=== PATIENT | female | born 1950 | race Caucasian/White ===

== ENCOUNTER 2019-08-22 13:06 | Outpatient (CLI) | payer MEDICARE, SELFPAY ==
--- NOTE | ~2019-08-22 | CT_ITS ---
EXAMINATION: CT abdomen pelvis w con INDICATION: Abdominal pain and bloating TECHNIQUE: Computed tomographic images of the abdomen and pelvis were obtained after the administrati on of 100 cc of Omnipaque 350 intravenous contrast. The dose-length product (DLP) was 552.73 mGy-cm. Automated exposure control and iterative reconstruction technique were employed. COMPARISON: None available FINDINGS: Minimal dependent atelectasis is present in the lung bases. The heart size is normal. Hypoa ttenuating lesions of the liver measuring up to 1.6 cm in the left hepatic lobe are consistent with c ysts. There is mild enlargement of the common bile duct and central intrahepatic ducts which is likel y due to post cholecystectomy state. The spleen, pancreas, gallbladder, and adrenal glands are normal . Cysts of the kidneys measure up to 2.6 cm on the right. There are punctate bilateral nonobstructing stones in the kidneys. No stones are identified in the ureters or bladder. There is no hydronephrosi s or hydroureter. No pathologically enlarged abdominal or pelvic lymph nodes are identified. There is no free intraperitoneal gas or evidence of bowel obstruction. A fat-containing umbilical hernia is n oted. There is mild lumbar spondylosis. IMPRESSION: 1. Mild intrahepatic and extrahepatic biliary dilatation of unclear significance. Recommend correlati on with liver function tests and consider MRCP or ERCP. Reviewed, dictated and finalized at location A. IOPE PLAYER IMPRESSION: 1. Mild intrahepatic and extrahepatic biliary dilatation of unclear significanc e. Recommend correlation with liver function tests and consider MRCP or ERCP.
[2019-08-22 13:28] LABS: Blood Urea Nitrogen 14 mg/dL (8-26); Estimated Glomerular Filt Rate > 60
== END 2019-08-22 13:07 | disposition home or self-care (01) ==
LOC: ANHIMG 13:11
PROVIDERS: PCP Emergency Medicine; Visit Provider Emergency Medicine
DX: R10.84 Generalized abdominal pain (principal); R14.0 Abdominal distension (gaseous); R93.5 Abnormal findings on diagnostic imaging of other abdominal regions, including retroperitoneum
CPT/HCPCS: 74177; Q9967

== ENCOUNTER 2019-09-08 12:21 | Outpatient (CLI) | payer MEDICARE, SELFPAY ==
--- NOTE | ~2019-09-08 | MR_ITS ---
EXAMINATION: MR cervical spine wo con DATE: 09/08/2019 14:16 INDICATION: Bilateral hand numbness. TECHNIQUE: Magnetic resonance imaging (MRI) of the cervical spine was performed without intravenous c ontrast. Sequences included sagittal T2-weighted FSE, sagittal STIR FSE, sagittal T1-weighted FSE, ax ial MERGE, and axial T2-weighted FSE. COMPARISON: Cervical spine MRI 11/18/2017 FINDINGS: Bone alignment is normal. There are changes of anterior fusion procedure from C5 to C7 with discectomies, healed interbody bone graft, and anterior plate and screws. Vertebral body heights are normal. There is mildly decreased disc height at C3-C4, moderately decreased disc height at C4-C5, a nd mildly decreased disc height at C7-T1. The spinal cord signal intensity is normal. The following d isc levels are specifically discussed: C2-C3: The disc does not extend beyond the endplate margin. There is no uncovertebral joint osteoarth ritis. There is severe left facet joint osteoarthritis. There is mild left neural foraminal stenosis. There is no central canal stenosis. C3-C4: The disc is bulging. There is moderate right and severe left uncovertebral joint osteoarthriti s. There is mild right and severe left facet joint osteoarthritis. There is mild right and moderate l eft neural foraminal stenosis. There is mild central canal stenosis. C4-C5: The disc is bulging. There is moderate and severe left uncovertebral joint osteoarthritis. The re is moderate bilateral facet joint osteoarthritis. There is mild right and moderate left neural for aminal stenosis. There is mild central canal stenosis. C5-C6: There is mild left uncovertebral joint hypertrophy. There is no facet joint osteoarthritis. Th ere is no neural foraminal stenosis. There is no central canal stenosis. C6-C7: There is no uncovertebral joint hypertrophy. There is no facet joint osteoarthritis. There is no neural foraminal stenosis. There is no central canal stenosis. C7-T1: The disc is bulging. There is no uncovertebral joint osteoarthritis. There is severe bilateral facet joint osteoarthritis. There is mild bilateral neural foraminal stenosis. There is no central c anal stenosis. IMPRESSION: 1. Moderate cervical spondylosis, stable from 11/18/2017. 2. Anterior fusion procedure from C5 to C7. Reviewed, dictated and finalized at location A. SE DRIVER
--- NOTE | ~2019-09-08 | MR_ITS ---
EXAMINATION: MR lumbar spine wo con DATE: 09/08/2019 14:18 INDICATION: Chronic low back pain. TECHNIQUE: Magnetic resonance imaging (MRI) of the lumbar spine was performed without intravenous con trast. Sequences included sagittal T2-weighted FSE, sagittal T2-weighted FS FSE, sagittal T1-weighted FSE, and axial T2-weighted FSE. COMPARISON: Lumbar spine MRI 11/18/2017 FINDINGS: There is 6 degrees levocurvature of lumbar spine. There is 4 mm anterolisthesis of L4 on L5 . There are Schmorl's nodes at multiple levels. There is mildly decreased disc height at L3-L4 and mo derately decreased disc height at L4-L5. The distal spinal cord signal intensity is normal. The conus medullaris is at L1-L2. The following disc levels are specifically discussed: L1-L2: The disc does not extend beyond the endplate margin. There is mild right facet joint osteoarth ritis. There is no neural foraminal stenosis. There is no central canal stenosis. L2-L3: The disc is mildly bulging. There is severe right and moderate left facet joint osteoarthritis . There is no neural foraminal stenosis. There is mild central canal stenosis. L3-L4: The disc is bulging. There is moderate right and severe left facet joint osteoarthritis. There is mild bilateral neural foraminal stenosis. There is mild central canal stenosis. L4-L5: The disc is bulging and has an annular fissure. There is severe bilateral facet joint osteoart hritis. There is mild bilateral neural foraminal stenosis. There is mild central canal stenosis. L5-S1: The disc is mildly bulging. There is severe bilateral facet joint osteoarthritis. There is mil d bilateral neural foraminal stenosis. There is no central canal stenosis. IMPRESSION: 1. Moderate lumbar spondylosis, stable from 12/21/2016. Reviewed, dictated and finalized at location A. ATRIC NURSE PRACTITIONER
== END 2019-09-08 12:22 | disposition home or self-care (01) ==
LOC: ANHIMG 12:33
PROVIDERS: PCP Emergency Medicine; Visit Provider Anesthesiology
DX: R20.2 Paresthesia of skin (principal); M47.892 Other spondylosis, cervical region; Z98.1 Arthrodesis status; M47.896 Other spondylosis, lumbar region
CPT/HCPCS: 72141; 72148

== ENCOUNTER 2019-11-09 09:02 | Outpatient (CLI) | payer MEDICARE, SELFPAY ==
--- NOTE | 2019-11-09 10:30 | NEURO_ITS ---
Patient Number: [id number] Impression: # Complains of pain in upper and lower extremities. # Normal nerve conduction study including motor and sensory nerves except left peroneal amplitude drop. Could suggest higher involvement. # Normal needle/EMG exam without evidence of myotonia or fibrillations. # Clinical correlation recommended. Nerve Conduction Studies Anti Sensory Summary Table Stim Site NR Peak (ms) P-T Amp (?V) Site1 Site2 Delta-P (ms) Dist (cm) Niranjan (m/s) Left Median Anti Sensory (2-3nd Digit) Wrist 2.9 50.2 Wrist 2-3nd Digit 2.9 14.0 48 Wrist 3.0 40.7 Wrist 2-3nd Digit 2.9 14.0 48 Right Median Anti Sensory (2-3nd Digit) Wrist 3.0 35.7 Wrist 2-3nd Digit 3.0 14.0 47 Wrist 3.0 41.2 Wrist 2-3nd Digit 3.0 14.0 47 Left Radial Anti Sensory (Base 1st Digit) Wrist 2.3 12.5 Wrist Base 1st Digit 2.3 0.0 Right Radial Anti Sensory (Base 1st Digit) Wrist 2.7 14.1 Wrist Base 1st Digit 2.7 0.0 Left Sup Fibular Anti Sensory (Ant Lat Mall) 14 cm 3.4 10.8 14 cm Ant Lat Mall 3.4 16.0 47 Right Sup Fibular Anti Sensory (Ant Lat Mall) 14 cm 3.3 24.7 14 cm Ant Lat Mall 3.3 16.0 48 Left Sural Anti Sensory (Lat Mall) Calf 3.7 12.1 Calf Lat Mall 3.7 16.0 43 4.2 5.4 Right Sural Anti Sensory (Lat Mall) Calf 3.9 4.7 Calf Lat Mall 3.9 16.0 41 Left Ulnar Anti Sensory (5th Digit) Wrist 2.5 58.2 Wrist 5th Digit 2.5 14.0 54 Right Ulnar Anti Sensory (5th Digit) Wrist 2.5 65.2 Wrist 5th Digit 2.5 14.0 56 Motor Summary Table Stim Site NR Onset (ms) O-P Amp (mV) Site1 Site2 Delta-0 (ms) Dist (cm) Niranjan (m/s) Left Median Motor (Abd Poll Brev) Wrist 2.8 3.2 Elbow Wrist 4.3 25.0 58 Elbow 7.1 2.7 Right Median Motor (Abd Poll Brev) Wrist 3.3 2.7 Elbow Wrist 4.3 25.0 58 Elbow 7.6 2.1 Left Peroneal Motor (Vastus Med) Ankle 4.8 0.7 Popit Ankle 7.4 37.0 50 Popit 12.2 0.8 Right Peroneal Motor (Vastus Med) Ankle 4.6 2.5 Popit Ankle 7.9 35.0 44 Popit 12.5 2.0 Left Tibial Motor (Abd Rios Brev) Ankle 4.6 3.6 Knee Ankle 8.4 39.0 46 Knee 13.0 3.5 Right Tibial Motor (Abd Rios Brev) Ankle 4.7 2.8 Knee Ankle 8.3 39.0 47 Knee 13.0 1.5 Left Ulnar Motor (Abd Dig Minimi) Wrist 2.3 3.9 A Elbow Wrist 4.7 27.0 57 A Elbow 7.0 4.2 Right Ulnar Motor (Abd Dig Minimi) Wrist 2.8 5.8 A Elbow Wrist 4.6 26.0 57 A Elbow 7.4 4.4 F Wave Studies NR F-Lat (ms) L-R F-Lat (ms) Left Median (Mrkrs) (Abd Poll Brev) 26.80 0.76 Right Median (Mrkrs) (Abd Poll Brev) 27.56 0.76 Left Peroneal (Mrkrs) (EDB) 52.85 0.07 Right Peroneal (Mrkrs) (EDB) 52.78 0.07 Left Tibial (Mrkrs) (Abd Hallucis) 53.04 0.29 Right Tibial (Mrkrs) (Abd Hallucis) 53.33 0.29 Left Ulnar (Mrkrs) (Abd Dig Min) 26.33 0.85 Right Ulnar (Mrkrs) (Abd Dig Min) 27.18 0.85 EMG Side Muscle Nerve Root Ins Act Fibs Amp Dur Recrt Comment Right 1stDorInt Ulnar C8-T1 Nml Nml Nml Nml Nml Right Ext Indicis Radial (Post Int) C7-8 Nml Nml Nml Nml Nml Right Ext Digitorum Radial (Post Int) C7-8 Nml Nml Nml Nml Nml Right Br
== END 2019-11-09 09:03 | disposition home or self-care (01) ==
PROVIDERS: PCP Emergency Medicine; Visit Provider Anesthesiology
DX: M54.10 Radiculopathy, site unspecified (principal)
CPT/HCPCS: 95886; 95913

== ENCOUNTER 2019-12-26 07:47 | Outpatient (CLI) | payer MEDICARE, SELFPAY ==
[2019-12-26 09:03] LABS: Alanine Aminotransferase 14 U/L (4-35); Alkaline Phosphatase 56 U/L (38-126); Aspartate Amino Transferase 23 U/L (14-36); Bilirubin,Total 0.3 mg/dL (0.2-1.3); Blood Urea Nitrogen 13 mg/dL (7-17); Calcium 9.5 mg/dL (8.4-10.2); Carbon Dioxide 31 mmol/L (22-30); Chloride 101 mmol/L (98-107); Cholesterol 211 mg/dL (0-200); Estimated Glomerular Filt Rate > 60; Glucose 94 mg/dL (65-105); HDL Direct 54 mg/dL; Potassium 4.1 mmol/L (3.4-5.0); Sodium 134 mmol/L (137-145); Triglycerides 277 mg/dL (<150)
[2019-12-26 09:05] LABS: LDL Cholesterol Direct 113 mg/dL
== END 2019-12-26 07:48 | disposition home or self-care (01) ==
LOC: ANHLAB 07:49
PROVIDERS: PCP Emergency Medicine; Visit Provider Emergency Medicine
DX: E78.5 Hyperlipidemia, unspecified (principal); K76.9 Liver disease, unspecified
CPT/HCPCS: 36415; 80053; 80061; 82248

== ENCOUNTER 2020-01-18 14:27 | Outpatient (CLI) | payer MEDICARE, SELFPAY ==
--- NOTE | ~2020-01-18 | MR_ITS ---
EXAMINATION: MR MRCP wo/w con/w 3D wo ind DATE: 01/18/2020 15:51 INDICATION: Generalized abdominal pain. TECHNIQUE: Magnetic resonance imaging (MRI) of the abdomen was performed without and with 16 mL Multi Gely intravenous contrast. Sequences included coronal T2-weighted FS FSE, coronal T2-weighted FSE, a xial T1-weighted LAVA, coronal FS FIESTA, axial dual-echo T1-weighted SPGR, coronal lava-FLEX, sagitt al T2-weighted FSE, axial T2-weighted FSE, and axial DWI. Thick-slab T2-weighted FSE images were obta ined for magnetic resonance cholangiopancreatography (MRCP). Maximum intensity projection 3-D reconst ructions of the volumetric data were created by the technologist. Postcontrast sequences included cor onal LAVA-flex and time course of axial T1-weighted LAVA. COMPARISON: CT abdomen and pelvis 08/22/2019 FINDINGS: ABDOMEN MRI: There is diffuse hepatic steatosis. There are cysts in the liver measuring up to 12 mm. The gallbladder, spleen, pancreas, and adrenal glands are normal. There are cysts in the kidneys laura uring up to 2.5 cm on the right. There are no dilated loops of bowel. There are no pathologically enl arged lymph nodes. There is no free intraperitoneal fluid. ABDOMEN MRCP: The common duct is normal and measures 7 mm. No choledocholithiasis. IMPRESSION: 1. Diffuse hepatic steatosis. Reviewed, dictated and finalized at location A.
== END 2020-01-18 14:28 | disposition home or self-care (01) ==
PROVIDERS: PCP Emergency Medicine; Visit Provider Emergency Medicine
DX: R10.84 Generalized abdominal pain (principal); K76.0 Fatty (change of) liver, not elsewhere classified
CPT/HCPCS: 74183; 76376; A9577

== ENCOUNTER 2020-04-08 14:41 | Outpatient (CLI) | payer MEDICARE, SELFPAY ==
--- NOTE | ~2020-04-08 | MM_ITS ---
EXAMINATION: MM screening [facility] BI w tia HISTORY: Screening mammogram, family history of breast cancer in her mother. TECHNIQUE: Craniocaudal and mediolateral oblique 3-D tomosynthesis images were obtained and synthetic 2-D images were generated. CAD analysis was submitted and interpreted. COMPARISON: 10/22/2017, 05/07/2016, 04/24/2015 BREAST PARENCHYMAL COMPOSITION: There are scattered areas of fibroglandular density. FINDINGS: There is no evidence of suspicious mass, calcification, or architectural distortion to sugg est malignancy in either breast. There has been no suspicious interval change. IMPRESSION: 1. No mammographic evidence of malignancy. 2. Recommend routine screening mammography in one year. BI-RADS Category 1: Negative Reviewed, dictated and finalized at location A.
== END 2020-04-08 14:42 | disposition home or self-care (01) ==
LOC: ANHIMG 14:43
PROVIDERS: PCP Emergency Medicine; Visit Provider Emergency Medicine
DX: Z12.31 Encounter for screening mammogram for malignant neoplasm of breast (principal)
CPT/HCPCS: 77063; 77067

== ENCOUNTER 2020-12-05 12:24 | Outpatient (CLI) | payer MEDICARE, SELFPAY ==
--- NOTE | ~2020-12-05 | MR_ITS ---
EXAMINATION: MR brain/brain stem wo con DATE: 12/05/2020 13:25 INDICATION: Hyperprolactinemia. TECHNIQUE: Magnetic resonance imaging (MRI) of the brain and brainstem was performed without intraven ous contrast. Sequences included sagittal and axial T1-weighted FSE, axial diffusion-weighted FS EPI, axial T2*-weighted GRE, axial T2-weighted FLAIR Propeller, and axial T2-weighted Propeller. Apparent diffusion coefficient (ADC) maps were created. COMPARISON: Brain MRI 09/03/2017 FINDINGS: The pituitary is normal in size with height of 4 mm and concave superior margin. There is n o intracranial hemorrhage, acute infarction, or abnormal intracranial mass lesion. The ventricles are normal in size. There are scattered areas of nonspecific increased T2-weighted signal intensity in t he cerebral white matter and left basal ganglia and lucero. The ventricles are normal in size. There is mild mucosal thickening in the ethmoid sinuses. The orbits are normal. There is a trace left mastoid effusion. IMPRESSION: 1. Normal pituitary. 2. Worsened mild nonspecific cerebral white matter disease and disease of the lucero and left basal good glia, which likely represents chronic small vessel ischemic disease. Reviewed, dictated and finalized at location B. IMPRESSION: 1. Normal pituitary. 2. Worsened mild nonspecific cerebral white matter disease and disease of the p ons and left basal ganglia, which likely represents chronic small vessel ischem ic disease.
== END 2020-12-05 12:25 | disposition home or self-care (01) ==
LOC: ANHIMG 12:25
PROVIDERS: PCP Emergency Medicine; Visit Provider Physical Medicine & Rehabilitation Pain Medicine
DX: R79.89 Other specified abnormal findings of blood chemistry (principal); R93.0 Abnormal findings on diagnostic imaging of skull and head, not elsewhere classified
CPT/HCPCS: 70551

== ENCOUNTER 2021-02-25 02:15 | Emergency (ER) | payer MEDICARE, SELFPAY ==
--- NOTE | ~2021-02-25 | XR_ITS ---
XR chest 2V 02/25/2021 02:55 Indication: Chest pain and shortness of breath Procedure: PA and lateral views of the chest Comparison: 02/09/2019 Findings: Heart size normal. Bibasilar airspace disease. Small pleural effusions. No edema or pneumot horax. Surgical changes of the cervicothoracic junction and the left shoulder. Impression: 1: Bibasilar infiltrates may represent atelectasis or less likely pneumonia. 2: Small pleural effusions. Reviewed, dictated and finalized at location A. Impression: 1: Bibasilar infiltrates may represent atelectasis or less likely pneumonia. 2: Small pleural effusions.
[2021-02-25 02:17] VITALS: BP 136/78; PULSE 83; RESP 18; TEMP 37.1; O2SAT 95
--- NOTE | 2021-02-25 02:39 | ECG_ITS ---
Measurements Intervals [place] Rate: 0 P: [place]: 0 QRS: QRSD: 0 T: QT: 0 QTc: 0 Interpretive Statements SINUS RHYTHM INCOMPLETE RIGHT BUNDLE BRANCH BLOCK DELAYED PRECORDIAL R/S TRANSITION BORDERLINE T WAVE ABNORMALITY- ANT/INF LEADS BASELINE ARTIFACT- I, II, III, AVR, AVL, AVF, V1-V6 BORDERLINE ECG Electronically Signed On 02-25-2021 5:27:40 CDT by Fransico Ortega D.O.
--- NOTE | 2021-02-25 03:22 | ED.GENADULT ---
HPI - General Adult General Chief complaint: Chest Pain Stated complaint: chest pain Time Seen by Provider: 02/25/21 03:10 History of Present Illness HPI narrative: Patient is a 70-year-old female presents the emergency department with chief complaint of right-sided chest pain. Patient reports that she started having right-sided sharp pleuritic chest pain this evening reports she has had a dry cough denies fever denies chills patient reports he just has prior history of diabetes denies history of prior cardiac disease. The patient pain has improved reports its worse with deep breaths and worse with movement. Patient reports has not been vaccinated for COVID-19. Patient denies fever Related Data Home Medications Medication Instructions Recorded Confirmed hydrocodone 10 mg-acetaminophen 1 tablet PO QID PRN tablet 06/28/19 325 mg tablet albuterol 90 mcg/actuation aerosol See Rx Instructions .ROUTE .COMPLEX 12/26/19 inhaler cetirizine 10 mg tablet See Rx Instructions .ROUTE .COMPLEX 12/26/19 duloxetine 60 mg capsule,delayed See Rx Instructions .ROUTE .COMPLEX 12/26/19 release risperidone 0.5 mg tablet See Rx Instructions PO .COMPLEX 12/26/19 Allergies Allergy/AdvReac Type Severity Reaction Status Date / Time morphine Allergy Unknown Itching Verified 02/25/21 02:28 Sulfa (Sulfonamide Allergy Unknown Unknown Verified 02/25/21 02:28 Antibiotics) vancomycin Allergy Unknown Rash Verified 02/25/21 02:28 erythromycin base Allergy Hives Verified 02/25/21 02:28 Penicillins Allergy Hives Verified 02/25/21 02:28 Review of Systems Review of Systems: A 10 system review of systems was completed on the patient and is negative except for what is stated in the HPI. Nursing and ancillary documentation was reviewed. [facility] Past Medical History Medical History (Updated 02/25/21 @ 05:44 by Anselmo Galan MD) Abdominal pain COPD (chronic obstructive pulmonary disease) HLD (hyperlipidemia) Family History Family History Sibling Family history of blood dyscrasia Family history of malignant neoplasm Family history of seizure disorder Mother Family history of malignant neoplasm, Onset Age: 85 Family history of lymphoma, Onset Age: 85 Family history of atrial fibrillation, Onset Age: 85 Social History Social History Smoking status: Never smoker Alcohol intake: never Gender identity (if verbalized by the patient): Female Exam Narrative: GENERAL: Well-appearing, well-nourished, and in no acute distress. HEAD: Normocephalic, atraumatic. EYES: PERRLA and EOMI. ENT: Nares clear, no rhinorrhea or epistaxis. Mucous membranes moist. NECK: Supple. CHEST: Clear to auscultation. No respiratory distress. Chest wall is tender to palpation HEART: Regular rate and rhythm. No murmur heard. Normal peripheral pulses. ABDOMEN: Soft, nontender, nondistended, normal active bowel sounds. EXTREMITIES: Normal range of motion. No edema. SKIN: Warm, dry, no rash. NEURO: No focal deficits. Alert and oriented x3. PSYCH: Normal mood and affect. Course Vital Signs Vital signs: Vital Signs Temperature 37.1 C 02/25/21 02:17 Pulse Rate 83 02/25/21 02:17 Respiratory Rate 18 02/25/21 02:17 Blood Pressure 136/78 02/25/21 02:17 Pulse Oximetry 95 02/25/21 02:17 Temperature 37.1 C 02/25/21 02:17 Pulse Rate 78 02/25/21 05:42 Respiratory Rate 20 02/25/21 05:42 Blood Pressure 127/74 02/25/21 05:42 Pulse Oximetry 94 02/25/21 05:42 Medical Decision Making Vital Signs Vital Signs: Vital Signs Temperature 37.1 C 02/25/21 02:17 Pulse Rate 83 02/25/21 02:17 Respiratory Rate 18 02/25/21 02:17 Blood Pressure 136/78 02/25/21 02:17 Pulse Oximetry 95 02/25/21 02:17 Temperature 37.1 C 02/25/21 02:17 Pulse Rate 78
[2021-02-25 03:27] LABS: Basophils Absolute Auto 0.1 K/mm3 (0.0-0.1); Basophils Percent Auto 0.7 % (0.2-1.2); Eosinophils Absolute Auto 0.1 K/mm3 (0-0.3); Eosinophils Percent Auto 1.8 % (0-4.4); Hematocrit 39.2 % (37.0-47.0); Hemoglobin 12.6 g/dL (12.0-15.0); Immature Granulocyte Absolute 0.01 K/mm3 (0.00-0.031); Immature Granulocyte Percent A 0.1 % (0-0.5); Lymphocytes Absolute Auto 1.79 K/mm3 (0.9-3.2); Lymphocytes Percent Auto 26.8 % (18.3-44.2); Mean Corpuscular HGB Conc 32.1 g/dl (32-36); Mean Corpuscular Hemoglobin 29.8 pg (26-34); Mean Corpuscular Volume 92.7 fl (80-100); Mean Platelet Volume 11.6 fl (7.4-10.4); Monocytes Absolute Auto 0.8 K/mm3 (0.1-0.6); Monocytes Percent Auto 12.3 % (2.6-8.5); Neutrophils Absolute Auto 3.9 K/mm3 (1.3-6.7); Neutrophils Percent Auto 58.3 % (45.5-73.1); Platelet Count Result 213 k/mm3 (150-375); Red Blood Count 4.23 M/mm3 (4.2-5.4); Red Cell Distribution Width 14.5 % (11.5-14.5); White Blood Count 6.7 K/mm3 (4.5-10.0)
[2021-02-25 03:37] LABS: Anion Gap 6 mmol/L (8-16); Blood Urea Nitrogen 11 mg/dL (7-17); Calcium 9.3 mg/dL (8.4-10.2); Carbon Dioxide 26 mmol/L (22-30); Chloride 104 mmol/L (98-107); Estimated CRCL calculation 80 ml/min; Estimated Glomerular Filt Rate > 60; Glucose 99 mg/dL (65-110); Potassium 3.7 mmol/L (3.4-5.0); Sodium 136 mmol/L (137-145)
[2021-02-25 03:40] LABS: INR 0.9; Partial Thromboplastin Time 26.9 SECONDS (22.3-36.8); Prothrombin Time 11.8 Seconds (11.1-14.7)
[2021-02-25 03:50] LABS: Troponin I < 0.012 ng/mL (0.000-0.034)
[2021-02-25 04:06] VITALS: BP 139/64; PULSE 65; RESP 18; O2SAT 91
[2021-02-25 05:42] VITALS: BP 127/74; PULSE 78; RESP 20; O2SAT 94
[2021-02-25 06:18] LABS: Troponin I < 0.012 ng/mL (0.000-0.034)
[2021-02-25 06:31] VITALS: BP 139/81; PULSE 80; RESP 18; O2SAT 94
== END 2021-02-25 06:30 | disposition home or self-care (01) ==
PROVIDERS: Emergency Provider Emergency Medicine; PCP Emergency Medicine
DX: R07.89 Other chest pain (principal); J44.9 Chronic obstructive pulmonary disease, unspecified
CPT/HCPCS: 36415; 71046; 80048; 84484; 85025; 85610; 85730; 93005; 99284

== ENCOUNTER 2021-09-24 06:53 | Outpatient (CLI) | payer MEDICARE, SELFPAY ==
[2021-09-24 07:56] LABS: Alanine Aminotransferase 10 U/L (4-35); Albumin Level 3.9 g/dL (3.5-5.1); Alkaline Phosphatase 59 U/L (38-126); Anion Gap 3 mmol/L (8-16); Aspartate Amino Transferase 20 U/L (14-36); Bilirubin,Total 0.4 mg/dL (0.2-1.3); Blood Urea Nitrogen 16 mg/dL (7-17); Calcium 9.2 mg/dL (8.4-10.2); Carbon Dioxide 31 mmol/L (22-30); Chloride 105 mmol/L (98-107); Cholesterol 134 mg/dL (0-200); Estimated Glomerular Filt Rate > 60; Glucose 98 mg/dL (65-110); HDL Direct 56 mg/dL; Potassium 4.1 mmol/L (3.4-5.0); Sodium 139 mmol/L (137-145); Triglycerides 130 mg/dL (<150)
[2021-09-24 08:07] LABS: LDL Cholesterol Direct 46 mg/dL
[2021-09-24 08:10] LABS: Hemoglobin A1C 5.6 % (<5.7)
== END 2021-09-24 06:54 | disposition home or self-care (01) ==
PROVIDERS: PCP Emergency Medicine; Visit Provider Emergency Medicine
DX: E78.5 Hyperlipidemia, unspecified (principal); E11.9 Type 2 diabetes mellitus without complications
CPT/HCPCS: 36415; 80053; 80061; 83036

== ENCOUNTER 2022-01-23 10:03 | Outpatient (CLI) | payer MEDICARE, SELFPAY ==
--- NOTE | ~2022-01-23 | MM_ITS ---
EXAMINATION: MM screening [facility] BI w tia HISTORY: Screening mammogram TECHNIQUE: Craniocaudal and mediolateral oblique 3-D tomosynthesis images were obtained and synthetic 2-D images were generated. CAD analysis was submitted and interpreted. COMPARISON: 04/08/2020, 10/22/2017, 05/07/2016 BREAST PARENCHYMAL COMPOSITION: There are scattered areas of fibroglandular density. FINDINGS: There is no suspicious mass, calcification, or architectural distortion to suggest malignan cy in either breast. There has been no suspicious interval change. IMPRESSION: 1. No mammographic evidence of malignancy. 2. Recommend routine screening mammography in one year. BI-RADS Category 1: Negative Reviewed, dictated and finalized at location A.
== END 2022-01-23 10:04 | disposition home or self-care (01) ==
LOC: ANHIMG 10:05
PROVIDERS: PCP Emergency Medicine; Visit Provider Emergency Medicine
DX: Z12.31 Encounter for screening mammogram for malignant neoplasm of breast (principal)
CPT/HCPCS: 77063; 77067

== ENCOUNTER 2022-07-15 08:59 | Outpatient (CLI) | payer MEDICARE, SELFPAY ==
[2022-07-15 09:46] LABS: Basophils Percent Auto 0.5 % (0.2-1.2); Eosinophils Absolute Auto 0.1 K/mm3 (0-0.3); Eosinophils Percent Auto 0.6 % (0-4.4); Hematocrit 40.2 % (37.0-47.0); Hemoglobin 12.9 g/dL (12.0-15.0); Immature Granulocyte Absolute 0.02 K/mm3 (0.00-0.031); Immature Granulocyte Percent A 0.2 % (0-0.5); Mean Corpuscular HGB Conc 32.1 g/dl (32-36); Mean Corpuscular Hemoglobin 30.6 pg (26-34); Mean Corpuscular Volume 95.5 fl (80-100); Mean Platelet Volume 11.4 fl (7.4-10.4); Monocytes Absolute Auto 0.7 K/mm3 (0.1-0.6); Monocytes Percent Auto 8.6 % (2.6-8.5); Neutrophils Percent Auto 71.1 % (45.5-73.1); Platelet Count Result 255 k/mm3 (150-375); Red Blood Count 4.21 M/mm3 (4.2-5.4); Red Cell Distribution Width 13.7 % (11.5-14.5); White Blood Count 8.4 K/mm3 (4.5-10.0)
[2022-07-15 10:02] LABS: Alanine Aminotransferase 17 U/L (6-35); Albumin Level 4.3 g/dL (3.5-5.1); Alkaline Phosphatase 48 U/L (38-126); Anion Gap 7 mmol/L (8-16); Aspartate Amino Transferase 23 U/L (14-36); Bilirubin,Total 0.6 mg/dL (0.2-1.3); Blood Urea Nitrogen 11 mg/dL (7-17); Calcium 9.4 mg/dL (8.4-10.2); Carbon Dioxide 30 mmol/L (22-30); Chloride 103 mmol/L (98-107); Cholesterol 181 mg/dL (0-200); Estimated Glomerular Filt Rate > 60; Glucose 102 mg/dL (65-110); HDL Direct 69 mg/dL; Potassium 4.2 mmol/L (3.4-5.0); Sodium 140 mmol/L (137-145); Triglycerides 135 mg/dL (<150)
[2022-07-15 10:12] LABS: LDL Cholesterol Direct 69 mg/dL
== END 2022-07-15 09:00 | disposition home or self-care (01) ==
LOC: ANHLAB 09:02
PROVIDERS: PCP Emergency Medicine; Visit Provider Emergency Medicine
DX: E78.5 Hyperlipidemia, unspecified (principal)
CPT/HCPCS: 36415; 80053; 80061; 85025

== ENCOUNTER 2022-10-22 08:55 | Inpatient (IN) | payer MEDICARE, SELFPAY ==
[2022-10-22] VITALS (21 sets, daily range): BP systolic 028–169; BP diastolic 51–93; PULSE 71–130; RESP 15–223; TEMP 36.7–36.9; O2SAT 87–98
--- NOTE | ~2022-10-22 | CT_ITS ---
EXAMINATION: CTA chest PE protocol DATE: 10/22/2022 11:39 CDT INDICATION: Chest pain, shortness of breath and elevated d-dimer. TECHNIQUE: Computed tomographic angiography (CTA) of the chest was performed with 100 mL Omnipaque-35 0 intravenous contrast. The dose-length product was 436.89 mGy-cm. Maximum intensity projection 3D-re constructions of the aorta and other arteries were constructed by the technologist on a separate work station. COMPARISON: CT dated 09/02/2017 and chest x-ray dated 11/08/2022. FINDINGS: Study is technically limited for evaluation of right upper lobe pulmonary arteries due to m otion and contrast bolus timing. No large central pulmonary embolism. Cardiomegaly. Small pleural eff usions. There is mediastinal lymphadenopathy, likely reactive. Patchy groundglass opacities involving the upper lobes and right lower lobe. There is dependent atelectasis. No endobronchial lesions. No p neumothorax. No evidence for aortic aneurysm or dissection. There are multiple low-density lesions in the liver, largest in the right hepatic lobe showing 1.5 cm, compatible with a cyst. There is nodula r thickening of the adrenal glands, likely secondary to benign adenomas. Moderate thoracic spondylosi s. Surgical fusion changes present in the lower cervical spine. 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 IMPRESSION: 1. Patchy groundglass opacities, most confluent in the right upper lobe, consistent with pneumonia. 2: No large central pulmonary embolism. 3: Mediastinal lymphadenopathy, likely reactive. 4: Small pleural effusions. Reviewed, dictated and finalized at location L. IMPRESSION: 1. Patchy groundglass opacities, most confluent in the right upper lobe, consis tent with pneumonia. 2: No large central pulmonary embolism. 3: Mediastinal lymphadenopathy, likely reactive. 4: Small pleural effusions.
--- NOTE | ~2022-10-22 | XR_ITS ---
Clinical Indication: Shortness of breath PA and lateral views of the chest: Comparison: 02/25/2021 Findings: Probable small left pleural effusion present. Additional minimal right pleural effusion latisha moody chronic blunting of the costophrenic angle. There is a groundglass opacity in the right upper lob e.. Cardiomediastinal silhouette is within normal limits. Bones and soft tissues are unremarkable. Impression: Groundglass opacity right upper lobe. Correlate for atypical pulmonary edema pattern versus pneumonia . Small left pleural effusion and possible minimal right pleural effusion. Reviewed, dictated and finalized at location . Impression: Groundglass opacity right upper lobe. Correlate for atypical pulmonary edema pa ttern versus pneumonia. Small left pleural effusion and possible minimal right pleural effusion.
--- NOTE | 2022-10-22 08:56 | ECG_ITS ---
Measurements Intervals [place] Rate: 96 P: 82 ID: [id number] QRS: -9 QRSD: 85 T: 59 QT: 351 QTc: 445 Interpretive Statements SINUS RHYTHM WITH FREQUENT SUPRAVENTRICULAR PREMATURE COMPLEXES AND SUPRAVENTRICULAR TACHYCARDIA LOW QRS VOLTAGE IN PRECORDIAL LEADS POSSIBLE ANTEROSEPTAL MYOCARDIAL INFARCTION , PROBABLY OLD ABNORMAL ECG COMPARED TO ECG 02/25/2021 02:22:35 NO SIGNIFICANT CHANGES Electronically Signed On 10-23-2022 16:14:42 CDT by David Washington M.D.
[2022-10-22 09:31] LABS: Alanine Aminotransferase 18 U/L (6-35); Albumin Level 3.6 g/dL (3.5-5.1); Alkaline Phosphatase 66 U/L (38-126); Anion Gap 7 mmol/L (8-16); Aspartate Amino Transferase 18 U/L (14-36); Bilirubin,Total 0.4 mg/dL (0.2-1.3); Blood Urea Nitrogen 14 mg/dL (7-17); Calcium 9.2 mg/dL (8.4-10.2); Carbon Dioxide 28 mmol/L (22-30); Chloride 107 mmol/L (98-107); Estimated CRCL calculation 62 ml/min; Estimated Glomerular Filt Rate > 60; Glucose 130 mg/dL (65-110); Sodium 142 mmol/L (137-145)
[2022-10-22 09:33] LABS: Basophils Absolute Auto 0.1 K/mm3 (0.0-0.1); Basophils Percent Auto 0.7 % (0.2-1.2); Eosinophils Absolute Auto 0.1 K/mm3 (0-0.3); Eosinophils Percent Auto 1.3 % (0-4.4); Hematocrit 32.3 % (37.0-47.0); Hemoglobin 10.3 g/dL (12.0-15.0); Immature Granulocyte Absolute 0.05 K/mm3 (0.00-0.031); Immature Granulocyte Percent A 0.5 % (0-0.5); Lymphocytes Percent Auto 15.1 % (18.3-44.2); Mean Corpuscular HGB Conc 31.9 g/dl (32-36); Mean Corpuscular Hemoglobin 29.1 pg (26-34); Mean Corpuscular Volume 91.2 fl (80-100); Mean Platelet Volume 10.3 fl (7.4-10.4); Monocytes Absolute Auto 1.1 K/mm3 (0.1-0.6); Monocytes Percent Auto 9.9 % (2.6-8.5); Neutrophils Absolute Auto 7.7 K/mm3 (1.3-6.7); Neutrophils Percent Auto 72.5 % (45.5-73.1); Platelet Count Result 432 k/mm3 (150-375); Red Blood Count 3.54 M/mm3 (4.2-5.4); Red Cell Distribution Width 13.4 % (11.5-14.5); White Blood Count 10.6 K/mm3 (4.5-10.0)
--- NOTE | 2022-10-22 09:55 | ED.SOB ---
HPI - SOB/Dyspnea General Chief Complaint: Shortness of Breath/Dyspnea <Lety Jung PA-C - Last Filed: 10/22/22 13:30> Stated Complaint: SOB <Lety Jung PA-C - Last Filed: 10/22/22 13:30> Time Seen by Provider: 10/22/22 09:30 <Lety Jung PA-C - Last Filed: 10/22/22 13:30> History of Present Illness HPI Narrative: Patient is a 72-year-old female here for evaluation of shortness of breath. Patient states that over the past 5 days she has felt short of breath on exertion, associated with chest tightness. Patient states that her symptoms resolved when she was at rest but she has been able to walk less than a mile before becoming short of breath and having the tightness. She is never had a symptom like this in the past. She denies any fevers, chills, cough, congestion, leg swelling or pain. Patient does smoke 3 cigarettes/day. She has never had a cardiac catheterization. <Lety Jung PA-C - Last Filed: 10/22/22 13:30> Related Data Home Medications: Home Medications Medication Instructions Recorded Confirmed albuterol 90 mcg/actuation aerosol See Rx Instructions .Route .COMPLEX 12/26/19 09/26/21 inhaler cetirizine 10 mg tablet (Zyrtec) See Rx Instructions .Route .COMPLEX 12/26/19 09/26/21 duloxetine 60 mg capsule,delayed See Rx Instructions .Route .COMPLEX 12/26/19 09/26/21 release (Cymbalta) risperidone 0.5 mg tablet See Rx Instructions PO .COMPLEX 12/26/19 09/26/21 (Risperdal) metformin 500 mg tablet 500 mg PO BID 04/22/21 09/26/21 <JOSIE Owens Last Filed: 10/22/22 13:30> Allergies/Adverse Reactions: Allergies Allergy/AdvReac Type Severity Reaction Status Date / Time morphine Allergy Unknown Itching Verified 10/22/22 09:10 Sulfa (Sulfonamide Allergy Unknown Unknown Verified 10/22/22 09:10 Antibiotics) erythromycin base Allergy Hives Verified 10/22/22 09:10 Penicillins Allergy Hives Verified 10/22/22 09:10 <Lety Jung PA-C - Last Filed: 10/22/22 13:30> Review of Systems Review of Systems: Gen.: Denies fevers or chills Eyes: Denies eye pain or visual change ENT: Denies congestion Respiratory: Reports shortness of breath CV: Reports chest pain GI: Denies abdominal pain nausea, emesis or diarrhea denies burning, urgency, frequency or hematuria Musculoskeletal: Denies back pain or muscle pain Neuro: Denies numbness, tingling, weakness or focal weakness Skin: Denies rash Except as documented, all other systems reviewed and negative <Lety Jung PA-C - Last Filed: 10/22/22 13:30> [facility] Past Medical History Medical History: Medical History (Updated 10/22/22 @ 11:55 by Lety Jung PA-C) Abdominal pain COPD (chronic obstructive pulmonary disease) HLD (hyperlipidemia) <Lety Jung PA-C - Last Filed: 10/22/22 13:30> Family History Family History: Family History Sibling Family history of blood dyscrasia Family history of malignant neoplasm Family history of seizure disorder Mother Family history of malignant neoplasm, Onset Age: 85 Family history of lymphoma, Onset Age: 85 Family history of atrial fibrillation, Onset Age: 85 <Lety Jung PA-C - Last Filed: 10/22/22 13:30> Social History Social History: Social History Smoking packs per day: 0 Smoking cigarettes per day: 0.0 Years smoked: 3 Smoking pack-years: 0.00 Smoking status: Current every day smoker Tobacco type: cigarettes Second hand tobacco smoke exposure: No Alcohol intake: never Substance use: never Substance use type: does not use Living arrangements: with family Gender identity (if verbalized by the patient): Female Spiritual care concerns: No Agree to blood products: Yes <Lety Jung PA-C - Last
[2022-10-22] MEDS: LEVALBUTEROL NEB 1.25 MG/3 ML INHALATION ×2 (10:19→13:13)
[2022-10-22] MEDS: IPRATROPIUM BR 0.02% INH SOLN 0.5 MG/2.5 ML VIAL INHALATION ×2 (10:19→13:13)
[2022-10-22 10:32] LABS: NT Pro B Type Natriuretic Pept 4580 pg/mL (19.9-100); Troponin I < 0.012 ng/mL (0.000-0.034)
[2022-10-22] MEDS: POTASSIUM CHLORIDE 20 MEQ PACKET (FOR LIQUID) 40 MEQ PO (10:38)
[2022-10-22 10:42] LABS: INR 1.1; Partial Thromboplastin Time 38.2 SECONDS (22.3-36.8); Prothrombin Time 13.8 Seconds (11.1-14.7)
[2022-10-22 10:51] LABS: D Dimer 1.16 ug/mL (<0.48)
[2022-10-22 13:11] LABS: Troponin I < 0.012 ng/mL (0.000-0.034)
[2022-10-22 13:19] LABS: SARS-CoV-2 RNA PCR Negative
--- NOTE | 2022-10-22 13:53 | ADMGEN ---
This patient, Ruchi Holden, was admitted to Medical Room 342-01 @ 1350 . Patient/family oriented to hospital policies and general routines including ID bracelet, bed and alarms, visiting hours, pain management, procedures, bathroom and other care routines, personal items, smoking policy, room service/diet, and visiting hours. Information on how to activate the Rapid Response Team has been discussed. Patient/Family are encouraged to report perceived risks to care and to ask questions if they do not understand what they are told or what they should do.
--- NOTE | 2022-10-22 15:52 | ECG_ITS ---
Measurements Intervals [place] Rate: 116 P: 96 IN: 144 QRS: -5 QRSD: 80 T: 46 QT: 321 QTc: 448 Interpretive Statements SINUS TACHYCARDIA WITH OCCASIONAL VENTRICULAR PREMATURE COMPLEXES AND SUPRAVENTRICULAR PREMATURE COMPLEXES WITH SUPRAVENTRICULAR TACHYCARDIA ABNORMAL ECG COMPARED TO ECG 10/22/2022 09:06:01 HEART RATE HAS INCREASED Electronically Signed On 10-23-2022 16:31:42 CDT by David Washington M.D.
--- NOTE | 2022-10-22 18:35 | PM.IMHP ---
H&P: HPI History of Present Illness Date/Time: 10/22/22 18:35 Chief Complaint: Shortness of breath. Narrative: This is a 72-year-old female smoker with COPD, hypertension, hyperlipidemia, GERD, depression, anxiety, and chronic pain syndrome who presented to the emergency department via private vehicle from home for evaluation of shortness of breath. Patient provides the following history. She has not been feeling well for nearly a week with a wet but nonproductive cough, headache, body aches, and poor appetite. Over the last 5 days she has developed a sharp and stabbing pain in the right side of her back which seems to be associated with cough and deep inspiration. She has also been short of breath with exertion and has had sensations of racing heart and palpitations randomly. She has been under lot of stress recently as her 49-year-old daughter has been ill and in the hospital and in fact she just 2 days ago. The patient has no sick contacts to her knowledge. She denies fever, chills, and sweats. She has not had exertional chest pain. No syncope or near syncope. She denies nausea and vomiting. No orthopnea, paroxysmal nocturnal dyspnea, or edema. No history of venous thromboembolism and no known history of cardiac disease or dysrhythmia. She was afebrile on arrival to the emergency department with stable vital signs. Pertinent labs included WBC count of 10.6, hemoglobin 10.3, D-dimer 1.16, sodium 142, potassium 3.0, troponin less than 0.012, proBNP 4580. She was negative for SARS-CoV-2 by PCR. Chest CTA showed patchy ground-glass opacities, most complete in the right upper lobe, consistent with pneumonia, no large central pulmonary embolism, and small pleural effusions. In the ED she was given a nebulizer treatment and a dose of azithromycin and ceftriaxone. She is being admitted in this setting for further treatment and evaluation. Review of Systems Review of Systems: Twelve systems were reviewed. Weight has remained stable. No history of thyroid disease. She does not drink alcohol. Drinks perhaps a cup of coffee a day. No energy drinks [id number] supplements. Except as documented, all other systems were reviewed and are negative. [facility] Past Medical History Medical History (Updated 10/22/22 @ 19:20 by Mony Wood PA-C) Arthritis Chronic obstructive pulmonary disease Chronic pain syndrome Depression with anxiety Gastroesophageal reflux disease Hyperlipidemia Hypertension Kidney stones Nicotine use Shingles Type 2 diabetes mellitus Vitamin D deficiency Surgical History Surgical History (Updated 10/22/22 @ 17:45 by Mony Wood PA-C) History of appendectomy History of fusion of cervical spine C4 through C6. History of hernia repair History of lithotripsy Family History Family History Sibling Family history of blood dyscrasia Family history of malignant neoplasm Family history of seizure disorder Mother Family history of malignant neoplasm, Onset Age: 85 Family history of lymphoma, Onset Age: 85 Family history of atrial fibrillation, Onset Age: 85 Social History Social History (Updated 10/22/22 @ 17:45 by Mony Wood PA-C) Social History: Surrogate medical decision maker: Usha Ashley, granddaughter. Code status: Full code. Smoking packs per day: 0 Smoking cigarettes per day: 0.0 Years smoked: 4 Smoking pack-years: 0.00 Smoking status: Current every day smoker Tobacco type: cigarettes Second hand tobacco smoke exposure: No Alcohol intake: never Substance use: never Substance use type: does not use Lack of Transportation: No Lack of Food: Never True Current Housing: I Have Housing Concerned About Future Housing: No Difficulty Paying Gas/Electric Bills: No Difficulty Paying for Meds: No Currently Unemployed: No Education: Bachelor's Degree Difficulty w/ Childc
[2022-10-22] MEDS: HYDROcodone/acetaminophen (*CRX) 5-325 MG TABLET 1 TAB PO (20:11)
[2022-10-22] MEDS: DULoxetine HCL 60 MG CAPSULE.DR PO (21:02)
[2022-10-22] MEDS: GABAPENTIN 400 MG CAPSULE 800 MG PO (21:02)
[2022-10-22] MEDS: guaiFENesin 12 HR 600 MG TABCR PO (21:03)
[2022-10-22] MEDS: risperiDONE 1 MG TABLET BY MOUTH (21:03)
[2022-10-22] MEDS: SIMVASTATIN 20 MG TABLET PO (21:03)
[2022-10-22] MEDS: METOPROLOL TARTRATE INJ 5 MG/5 ML VIAL IV PUSH (23:13)
[2022-10-22] MEDS: ALPRAZolam (*CRX) 0.125 MG TABLET PO (23:13)
[2022-10-23] VITALS (17 sets, daily range): BP systolic 135–166; BP diastolic 54–91; PULSE 72–135; RESP 20–24; TEMP 36.9; O2SAT 94–98
[2022-10-23 01:37] LABS: Iron 31 ug/dL (37-170); Percent Iron Saturation 11 % (20-50)
[2022-10-23 02:29] LABS: Folic Acid 7.5 ng/mL (2.76->20)
[2022-10-23] MEDS: IPRATROPIUM BR 0.02% INH SOLN 0.5 MG/2.5 ML VIAL INHALATION ×4 (02:54→23:42)
[2022-10-23] MEDS: LEVALBUTEROL NEB 1.25 MG/3 ML INHALATION ×4 (02:54→23:42)
[2022-10-23] MEDS: HYDROcodone/acetaminophen (*CRX) 5-325 MG TABLET 1 TAB PO ×4 (03:04→19:03)
[2022-10-23 05:56] LABS: Hematocrit 30.1 % (37.0-47.0); Hemoglobin 9.6 g/dL (12.0-15.0); Mean Corpuscular HGB Conc 31.9 g/dl (32-36); Mean Corpuscular Hemoglobin 29.1 pg (26-34); Mean Corpuscular Volume 91.2 fl (80-100); Mean Platelet Volume 10.2 fl (7.4-10.4); Platelet Count Result 420 k/mm3 (150-375); Red Cell Distribution Width 13.6 % (11.5-14.5); White Blood Count 11.2 K/mm3 (4.5-10.0)
[2022-10-23 06:03] LABS: Anion Gap 5 mmol/L (8-16); Blood Urea Nitrogen 10 mg/dL (7-17); Calcium 8.6 mg/dL (8.4-10.2); Carbon Dioxide 27 mmol/L (22-30); Chloride 106 mmol/L (98-107); Estimated CRCL calculation 85 ml/min; Estimated Glomerular Filt Rate > 60; Glucose 113 mg/dL (65-110); Potassium 3.5 mmol/L (3.4-5.0); Sodium 138 mmol/L (137-145)
[2022-10-23 08:14] LABS: Glucose Point of Care 119 mg/dl (65-105)
[2022-10-23] MEDS: guaiFENesin 12 HR 600 MG TABCR PO ×2 (08:15→20:37)
[2022-10-23] MEDS: DULoxetine HCL 60 MG CAPSULE.DR PO ×2 (08:15→17:36)
[2022-10-23] MEDS: risperiDONE 1 MG TABLET BY MOUTH ×4 (08:16→20:37)
[2022-10-23] MEDS: ENOXAPARIN 40 MG/0.4 ML SYRINGE SUB-Q (08:16)
[2022-10-23] MEDS: GABAPENTIN 400 MG CAPSULE 800 MG PO ×3 (08:16→17:37)
--- NOTE | 2022-10-23 11:13 | PM.IMPN ---
Progress Note: A&P Assessment and Plan (1) Pneumonia: Code(s): J18.9 - Pneumonia, unspecified organism Status: Acute Assessment and Plan: CT of the chest showed no evidence of PE but did show patchy ground-glass opacities consistent with pneumonia. Continue azithromycin and ceftriaxone. Cornet Mucinex ordered to help mobilize secretions. Check urinary antigens and mycoplasma. (2) Tachycardia: Code(s): R00.0 - Tachycardia, unspecified Status: Acute Assessment and Plan: Initial EKG shows what appears to be sinus tachycardia with frequent ectopy. On occasion her telemetry does look like she intermittently goes into brief (seconds) episodes of atrial fibrillation. Continue to monitor on telemetry. Check echocardiogram and TSH. Consult cardiology (3) Chronic obstructive pulmonary disease: Code(s): J44.9 - Chronic obstructive pulmonary disease, unspecified Status: Acute Assessment and Plan: No significant bronchospasm noted on exam today. Hold DuoNebs given concomitant tachycardia. Rescue inhaler as needed. (4) Nicotine use: Code(s): Z72.0 - Tobacco use Status: Acute Assessment and Plan: Patient started smoking 4 years ago and only smokes 3 cigarettes a day. Encouraged to quit, declines nicotine patch. (5) Depression with anxiety: Code(s): F41.8 - Other specified anxiety disorders Status: Acute Assessment and Plan: Daughter 2 days ago as per HPI. Continue duloxetine. (6) Type 2 diabetes mellitus: Code(s): E11.9 - Type 2 diabetes mellitus without complications Status: Acute Assessment and Plan: Hold metformin as she received IV contrast. Initiate sliding scale insulin, Accu-Cheks, and hypoglycemic protocol. Check A1c. (7) Chronic pain syndrome: Code(s): G89.4 - Chronic pain syndrome Status: Acute Assessment and Plan: Continue hydrocodone and gabapentin. Subjective Date/time seen: 10/23/22 11:13 Patient states her back is hurting, she is not feeling well. Her complaints are all over the place Review of Systems Review of Systems: Negative other than as above Exam Narrative: General: Mildly ill, HEENT: PERRL, EOMI. Sclera anicteric. Conjunctiva mildly injected. Oral mucosa moist. Neck: Supple. No JVD or lymphadenopathy. Respiratory: Occasional cough. Respirations are nonlabored and she is speaking in full sentences. Lung sounds are a bit diminished at the bases with rales in the mid to upper right lung. Cardiovascular: Tachycardic (mostly regular though occasional bouts of ectopy). Gastrointestinal: Abdomen is soft, nontender, and nondistended with positive bowel sounds. Skin: Warm and dry. No rash or lesions on limited exam. Extremities: No cyanosis, clubbing, or edema. Radial and pedal pulses intact. No knots or cords. Negative Zully sign bilaterally. Neurological: Alert. Cranial nerves 2-12 are grossly intact. No gross focal deficits to casual conversation. Psychiatric: Pleasant and cooperative with appropriate mood and flat affect. Objective Data Vital Signs Vital Signs: Vital Signs - 24 hr 10/22/22 12:05 10/22/22 13:15 10/22/22 13:24 Temperature Pulse Rate 95 96 98 Respiratory Rate 20 22 H 19 Blood Pressure 145/93 H Pulse Oximetry 93 Oxygen Delivery Oxygen Flow Rate Fraction of Inspired Oxygen 10/22/22 12:06 10/22/22 12:17 10/22/22 13:03 Temperature Pulse Rate 99 92 85 Respiratory Rate 18 21 H 16 Blood Pressure 145/93 H 160/85 H 169/82 H Pulse Oximetry Oxygen Delivery Oxygen Flow Rate Fraction of Inspired Oxygen 10/22/22 14:00 10/22/22 16:00 10/22/22 20:26 Temperature 98.1 F Pulse Rate 80 111 H 128 H Respiratory Rate 18 24 H Blood Pressure 131/51 L Pulse Oximetry 98 Oxygen Delivery Oxygen Flow Rate Fraction of Inspired Oxygen 10/22/22 20:25 10/22/22 20:33 10/22/22 20:00
[2022-10-23 12:04] LABS: Glucose Point of Care 122 mg/dl (65-105)
--- NOTE | 2022-10-23 16:32 | ECHO_ITS ---
Patient Info Name: Ruchi Holden Age: 72 years : 1950 Gender: Female Ht: 61 in Wt: 180 lbs BSA: 1.91 m2 HR: 121 bpm BP: 128 / 54 mmHg Technical Quality: Fair Exam Date: 10/23/2022 8:45 AM Exam Location: [facility] Patient Status: Outpatient Admit Date: 10/22/2022 Staff Ordering Physician: Mony Wood PA-C Screw Cutter: Cornell Rosas, MARIMAR, RT Attending Provider: Ronal Duggan MD Referring Physician: Israel BHATT; Exam Type: CA echo doppler color flow Study Info Indications - DM - HTN - COPD - Frequent ectopy R00.0 - Tachycardia, unspecified Complete two-dimensional, color flow and Doppler transthoracic echocardiogram is performed. Summary 1. Complete two-dimensional, color flow and Doppler transthoracic echocardiogram is performed. 2. Left ventricular chamber dimension is normal. 3. Left ventricular systolic function is normal, estimated at 55-60%. 4. There is mild concentric increased left ventricular wall thickness. 5. The left ventricular diastolic function is abnormal. 6. E/e' 11 is mildly elevated. 7. Left atrial chamber dimension is moderately enlarged. 8. Mild pulmonary hypertension, estimated pulmonary arterial systolic pressure is 46 mmHg. 9. There is trivial pericardial effusion. Left Ventricle E/e' 11 is mildly elevated. Left ventricular chamber dimension is normal. Left ventricular systolic function is normal, estimated at 55-60%. There is mild concentric increased left ventricular wall thickness. The left ventricular diastolic function is abnormal. Right Ventricle Right ventricular systolic function is normal and with normal TAPSE 2.1 cm. Right ventricular chamber dimension is normal. Left Atria Left atrial chamber dimension is moderately enlarged. Right Atria Right atrial chamber dimension is normal. Aortic Valve The aortic valve is trileaflet. There is no aortic valve stenosis. There is no aortic valve regurgitation. Pulmonic Valve There is no pulmonic regurgitation. Mitral Valve There is no mitral valve stenosis. There is no mitral valve regurgitation. Tricuspid Valve There is no tricuspid valve regurgitation. Mild pulmonary hypertension, estimated pulmonary arterial systolic pressure is 46 mmHg. Pericardium/Pleural There is trivial pericardial effusion. Inferior Vena Cava Normal inferior vena cava with >50% collapse upon inspiration consistent with normal right atrial pressure, 5 mmHg. Aorta The aortic root size at the sinus of Valsalva is normal. Left Ventricular Outflow Tract Name Value Normal LVOT 2D LVOT Diameter 2.0 cm LVOT Doppler LVOT Peak Gradient 4 mmHg LVOT Mean Gradient 2 mmHg LVOT VTI 25 cm LVOT VTI/AV VTI Ratio 0.9 LVOT Stroke Volume 77 ml LVOT CO 4.0 l/min LVOT CI 2.1 l/min/m2 Mitral Valve
[2022-10-23 17:19] LABS: Glucose Point of Care 150 mg/dl (65-105)
[2022-10-23] MEDS: SIMVASTATIN 20 MG TABLET PO (20:37)
[2022-10-23] MEDS: ALPRAZolam (*CRX) 0.25 MG TABLET PO (21:05)
[2022-10-24] VITALS (22 sets, daily range): BP systolic 92–151; BP diastolic 66–91; PULSE 71–136; RESP 15–24; TEMP 36.3–36.6; O2SAT 89–97
[2022-10-24] MEDS: HYDROcodone/acetaminophen (*CRX) 5-325 MG TABLET 1 TAB PO ×4 (01:29→19:57)
[2022-10-24] MEDS: IPRATROPIUM BR 0.02% INH SOLN 0.5 MG/2.5 ML VIAL INHALATION ×3 (02:44→20:00)
[2022-10-24] MEDS: LEVALBUTEROL NEB 1.25 MG/3 ML INHALATION ×3 (02:45→20:00)
--- NOTE | 2022-10-24 03:02 | ECG_ITS ---
Measurements Intervals [place] Rate: 118 P: IN: 0 QRS: -12 QRSD: 92 T: 32 QT: 317 QTc: 444 Interpretive Statements ATRIAL FIBRILLATION WITH RAPID VENTRICULAR RESPONSE WITH ABERRANT CONDUCTION OR VENTRICULAR PREMATURE COMPLEXES ABNORMAL RHYTHM ECG COMPARED TO ECG 10/22/2022 16:03:52 ATRIAL FIBRILLATION NOW PRESENT ABERRANT CONDUCTION OF SUPRAVENTRICULAR BEAT(S) NOW PRESENT Electronically Signed On 10-24-2022 22:14:25 CDT by Lea Chisholm M.D.
--- NOTE | 2022-10-24 07:46 | PM.IMPN ---
Progress Note: A&P Assessment and Plan (1) Pneumonia: Code(s): J18.9 - Pneumonia, unspecified organism Status: Acute Assessment and Plan: Started on azithromycin and Rocephin admission 10/23 (2) Tachycardia: Code(s): R00.0 - Tachycardia, unspecified Status: Acute Assessment and Plan: Appears to be AFib with RVR, given full-dose Lovenox, Lopressor 5 mg IV x1 and started on metoprolol tartrate 25 mg q.12 hours Cardiology consult ordered and pending (3) Chronic obstructive pulmonary disease: Code(s): J44.9 - Chronic obstructive pulmonary disease, unspecified Status: Acute Assessment and Plan: Does not appear to be in exacerbation, continue nebs as needed (4) Nicotine use: Code(s): Z72.0 - Tobacco use Status: Acute Assessment and Plan: Nicotine patch as needed, smoking cessation recommended (5) Depression with anxiety: Code(s): F41.8 - Other specified anxiety disorders Status: Acute Assessment and Plan: Likely worsened to the loss of her daughter a few days ago, Ativan as needed, monitor (6) Type 2 diabetes mellitus: Code(s): E11.9 - Type 2 diabetes mellitus without complications Status: Acute Assessment and Plan: Accu-Cheks, sliding scale insulin, A1c is 6 (7) Chronic pain syndrome: Code(s): G89.4 - Chronic pain syndrome Status: Acute Assessment and Plan: [place] as needed, monitor Plan DVT prophylaxis with Lovenox GI prophylaxis not indicated Code status full code Subjective Date/time seen: 10/24/22 07:46 Interval history: 72-year-old female with history of COPD, hypertension, hyperlipidemia among other comorbidities presenting with shortness of breath and found to be in AFib RVR. No overnight events noted. No nausea, vomiting or diarrhea. No fevers or chills. She is occasionally sob with palpitations with exertion. Review of Systems Review of Systems: 12 point review of systems was assessed and was negative except as noted in the HPI Exam Narrative: General: No acute distress, alert and oriented per baseline HEENT: Atraumatic, normocephalic, mucous membranes moist CV: Irregularly irregular, S1, S2 Lungs: Clear to auscultation bilaterally, no rales or crackles noted, no wheezes, good air entry Abdomen: Soft, nontender, nondistended Extremities: Normal to inspection Skin: No rashes noted, no lesions or wounds seen Psych: Euthymic, normal affect Objective Data Vital Signs Vital Signs: Vital Signs - 24 hr 10/23/22 08:00 10/23/22 08:15 10/23/22 14:06 Temperature Pulse Rate 130 H 88 Respiratory Rate 22 H Blood Pressure Pulse Oximetry 95 Oxygen Delivery Oxygen Flow Rate Fraction of Inspired Oxygen 10/23/22 14:00 10/23/22 14:18 10/23/22 12:00 Temperature Pulse Rate 105 H 92 102 H Respiratory Rate 20 22 H Blood Pressure 166/91 H Pulse Oximetry 95 Oxygen Delivery Oxygen Flow Rate Fraction of Inspired Oxygen 10/23/22 16:00 10/23/22 18:24 10/23/22 20:00 Temperature Pulse Rate 72 105 H 123 H Respiratory Rate 20 Blood Pressure 145/88 H Pulse Oximetry 98 Oxygen Delivery Oxygen Flow Rate Fraction of Inspired Oxygen 10/23/22 20:00 10/23/22 20:39 10/23/22 20:39 Temperature 98.4 F Pulse Rate 126 H Respiratory Rate 24 H Blood Pressure 144/54 H 144/54 H 140/69 Pulse Oximetry 95 Oxygen Delivery Oxygen Flow Rate Fraction of Inspired Oxygen 10/24/22 00:00 10/24/22 03:33 10/24/22 04:00 Temperature Pulse Rate 108 H 71 103 H Respiratory Rate 15 Blood Pressure Pulse Oximetry Oxygen Delivery Oxygen Flow Rate Fraction of Inspired Oxygen 10/24/22 05:45 10/24/22 07:09 10/24/22 07:23 Temperature 98 F Pulse Rate 136 H Respiratory Rate 24 H Blood Pressure 147/67 H Pulse Oximetry 94 95 94 Oxyge
[2022-10-24] MEDS: METOPROLOL TARTRATE INJ 5 MG/5 ML VIAL IV PUSH (08:04)
[2022-10-24] MEDS: risperiDONE 1 MG TABLET BY MOUTH ×4 (08:09→19:56)
[2022-10-24] MEDS: GABAPENTIN 400 MG CAPSULE 800 MG PO ×3 (08:09→17:32)
[2022-10-24] MEDS: guaiFENesin 12 HR 600 MG TABCR PO ×2 (08:09→19:57)
[2022-10-24] MEDS: DULoxetine HCL 60 MG CAPSULE.DR PO ×2 (08:09→17:32)
[2022-10-24 08:13] LABS: Glucose Point of Care 136 mg/dl (65-105)
[2022-10-24] MEDS: ENOXAPARIN 80 MG/0.8 ML SYRINGE SUB-Q ×2 (08:44→19:56)
[2022-10-24] MEDS: METOPROLOL TARTRATE 25 MG TABLET PO ×2 (09:42→19:56)
[2022-10-24 12:24] LABS: Glucose Point of Care 107 mg/dl (65-105)
[2022-10-24 17:09] LABS: Glucose Point of Care 139 mg/dl (65-105)
[2022-10-24] MEDS: SIMVASTATIN 20 MG TABLET PO (19:56)
[2022-10-24 21:01] LABS: Glucose Point of Care 110 mg/dl (65-105)
[2022-10-25] VITALS (12 sets, daily range): BP systolic 122–141; BP diastolic 63–66; PULSE 73–108; RESP 18–20; TEMP 36.4–36.6; O2SAT 92–97
[2022-10-25] MEDS: HYDROcodone/acetaminophen (*CRX) 5-325 MG TABLET 1 TAB PO ×2 (01:37→08:07)
[2022-10-25] MEDS: IPRATROPIUM BR 0.02% INH SOLN 0.5 MG/2.5 ML VIAL INHALATION ×2 (08:03→14:04)
[2022-10-25] MEDS: LEVALBUTEROL NEB 1.25 MG/3 ML INHALATION ×2 (08:03→14:04)
[2022-10-25] MEDS: GABAPENTIN 400 MG CAPSULE 800 MG PO ×2 (08:08→13:13)
[2022-10-25] MEDS: DULoxetine HCL 60 MG CAPSULE.DR PO (08:08)
[2022-10-25] MEDS: METOPROLOL TARTRATE 25 MG TABLET PO (08:08)
[2022-10-25] MEDS: guaiFENesin 12 HR 600 MG TABCR PO (08:08)
[2022-10-25] MEDS: risperiDONE 1 MG TABLET BY MOUTH ×2 (08:08→13:13)
[2022-10-25] MEDS: ENOXAPARIN 80 MG/0.8 ML SYRINGE SUB-Q (08:09)
[2022-10-25 08:38] LABS: Glucose Point of Care 114 mg/dl (65-105)
--- NOTE | 2022-10-25 10:41 | PM.CNCAR ---
Assessment and Plan Assessment and plan (1) Tachycardia: Code(s): R00.0 - Tachycardia, unspecified Status: Acute Assessment and Plan: The patient has sinus tachycardia, frequent APCs and brief PSVT. There is no significant or sustained atrial fibrillation present. In my opinion I would not place this patient on long-term anticoagulation for anything I see so far. She may be at risk of atrial fibrillation the future and she was advised to see her physician if she had any sustained palpitations or tachycardia at home. --containing metoprolol, least in the short run, is reasonable (2) Pneumonia: Code(s): J18.9 - Pneumonia, unspecified organism Status: Acute Assessment and Plan: Admitted shortness of breath and with right upper lobe pneumonia, improving. (3) COPD exacerbation: Code(s): J44.1 - Chronic obstructive pulmonary disease with (acute) exacerbation Status: Acute Assessment and Plan: COPD exacerbation, not on home O2 yet. Improving. (4) Diastolic dysfunction: Code(s): I51.89 - Other ill-defined heart diseases Status: Acute Assessment and Plan: She has diastolic dysfunction, and may have a mild degree of diastolic failure in view of her elevated proBNP and small pleural effusions noted on CT scan. Rales were also noted on the left lower lobe this morning. However, she has not had any edema. Consider repeating a proBNP after recovery and if she is still elevated add a diuretic and perhaps an SGOT 2 inhibitor. History of Present Illness History of Present Illness Consult date/time: 10/25/22 10:41 Reason For Visit: COPD Exacerbation, Pneumonia Narrative: Ruchi Holden 72-year-old female whom I was asked to see at the request of Dr. Cheney for my advice and opinion regarding her possible atrial fibrillation in consultation. Ms. Holden no history of heart disease, and she denies any hypertension. She does have hyperlipidemia and COPD. She was admitted with increasing shortness of breath and found to have a right upper lobe opacity, pneumonia versus CHF CTA suggested pneumonia. Echo and labs as below. She has been treated with antibiotics and inhalers, and metoprolol 25 mg b.i.d. was added, and has improved, to the point where she hopes to go home today. Telemetry monitoring shown an irregular rhythm. She has really not felt any palpitations on this admission. At home she does have HAMMER but no chest pain pressure tightness, no history of strokes, dizziness , or edema. My review of the EKGs and telemetry rhythm strip shows sinus rhythm and sinus tachycardia, frequent APCs, some brief runs of PSVT. There is no significant atrial fibrillation on my review of multiple rhythm strips. Review of Systems Constitutional: Constitutional: Denies fever(s) Eyes: Eyes: Reports no additional eye complaints ENT: Denies epistaxis Cardiovascular: Cardiovascular: Denies chest pain, Denies pedal edema, Denies lightheadedness and Reports dyspnea Respiratory: Respiratory: Denies chest congestion, Reports dyspnea and Reports dyspnea on exertion Gastrointestinal: Gastrointestinal: Denies abdominal pain and Denies hematochezia Genitourinary: Genitourinary: Denies hematuria Musculoskeletal: Musculoskeletal: Reports no additional musculoskeletal complaints Integumentary/Breasts: Skin/Breast: Reports system reviewed and no additional complaints, except as docu Neurologic: Reports system reviewed and no additional complaints, except as documented, Denies behavioral changes and Denies confusion Psychiatric: Psychiatric: Denies behavioral changes and Denies confusion [facility] Past Medical History Medical History Arthritis Chronic obstructive pulmonary disease Chronic pain syndrome Depression with anxiety Gastroesophageal reflux disease Hyperlipidemia Hypertension Kidney stones Nicotine use Shing
[2022-10-25 12:03] LABS: Glucose Point of Care 86 mg/dl (65-105)
--- NOTE | 2022-10-25 14:51 | PC.NURSE ---
Pt removed telemetry as she is planning to discharged and is dressed in street clothes at this time.
--- NOTE | 2022-10-25 14:53 | PM.DS ---
DS: Admitting Diagnosis Discharge Date 10/25/22 Admitting Diagnosis sob DS: Discharge Diagnosis Discharge Diagnosis (1) Pneumonia: Code(s): J18.9 - Pneumonia, unspecified organism Status: Acute Assessment and Plan: Started on azithromycin and Rocephin admission 10/23 (2) Tachycardia: Code(s): R00.0 - Tachycardia, unspecified Status: Acute Assessment and Plan: Appears to be AFib with RVR, given full-dose Lovenox, Lopressor 5 mg IV x1 and started on metoprolol tartrate 25 mg q.12 hours Cardiology consult ordered and pending (3) Chronic obstructive pulmonary disease: Code(s): J44.9 - Chronic obstructive pulmonary disease, unspecified Status: Acute Assessment and Plan: Does not appear to be in exacerbation, continue nebs as needed (4) Nicotine use: Code(s): Z72.0 - Tobacco use Status: Acute Assessment and Plan: Nicotine patch as needed, smoking cessation recommended (5) Depression with anxiety: Code(s): F41.8 - Other specified anxiety disorders Status: Acute Assessment and Plan: Likely worsened to the loss of her daughter a few days ago, Ativan as needed, monitor (6) Type 2 diabetes mellitus: Code(s): E11.9 - Type 2 diabetes mellitus without complications Status: Acute Assessment and Plan: Accu-Cheks, sliding scale insulin, A1c is 6 (7) Chronic pain syndrome: Code(s): G89.4 - Chronic pain syndrome Status: Acute Assessment and Plan: [place] as needed, monitor Plan DVT prophylaxis with Lovenox GI prophylaxis not indicated Code status full code DS: Summary Hospital Course Hospital Course: 72-year-old female with history of COPD, hypertension, hyperlipidemia among other comorbidities presenting with shortness of breath and found to be in AFib RVR. Cardiology was consulted and recommended continuing the beta-pearl and follow up with them outpatient. They recommended repeating a pro BNP and adding possibly a diuretic and an SGLT-2 inhibitor as an outpatient. She was discharged on antibiotics for her pneumonia. See above and med rec for details. Time Spent with Patient Time attestation: Total time spent providing and/or coordinating discharge services: Exam Narrative: General: No acute distress, alert and oriented per baseline HEENT: Atraumatic, normocephalic, mucous membranes moist CV: Irregularly irregular, S1, S2 Lungs: Clear to auscultation bilaterally, no rales or crackles noted, no wheezes, good air entry Abdomen: Soft, nontender, nondistended Extremities: Normal to inspection Skin: No rashes noted, no lesions or wounds seen Psych: Euthymic, normal affect DS: Data Data Completed and Pending Labs on day of discharge: Labs from last 24 hours 10/25/22 10/25/22 10/24/22 11:58 08:20 20:27 POC Capillary Glucose 86 114 H 110 H 10/24/22 17:04 POC Capillary Glucose 139 H Discharge Plan Discharge Attending physician on discharge: Dayan Cheney Consulting providers: Lea Chisholm Discharging Clinician: Dayan Cheney Patient Disposition: Home, Self-Care Activity: as tolerated Diet: as tolerated Patient Instructions: Antibiotic Form, How to Stop Smoking (DC) Stand Alone Forms: General Discharge Information Follow-up/Referrals: Diego Mina MD [Primary Care Provider] - Lea Chisholm MD [Physician] - Discharge Medications: New metoprolol tartrate 25 mg Tablet 25 mg PO Q12HR 30 Days Qty: 60 0RF Continued duloxetine [Cymbalta] 60 mg capsule,delayed release(DR/EC) 60 mg PO BID Rx Instructions: TAKE 1 CAPSULE PO BID; metformin 500 mg tablet 500 mg PO BID risperidone 1 mg tablet 1 mg QID gabapentin 800 mg tablet 800 mg PO TID Label Comments: pt states takes TID Rx Instructions: TAKE 1 TABLET BY M
[2022-10-26 17:42] LABS: Mycoplasma IgM Antibody Titer 23 U/mL (<770)
[2022-10-26 18:07] LABS: Pneumococcal Antigen Urine Not Detected (Not Detected)
[2022-10-29 00:18] LABS: Legionella pneumophila Ag Ur Not Detected (Not Detected)
== END 2022-10-25 15:10 | disposition home or self-care (01) | DRG 194 ==
LOC: ANHED 09:56 → ANH3MED 13:01
PROVIDERS: Emergency Medicine; Internal Medicine; Physician Assistant; Admitting Provider Hospitalist; Emergency Provider Physician Assistant; PCP Emergency Medicine; Visit Provider Student in an Organized Health Care Education/Training Program
DX: J18.9 Pneumonia, unspecified organism (principal); J44.0 Chronic obstructive pulmonary disease with (acute) lower respiratory infection; Z71.6 Tobacco abuse counseling; F17.210 Nicotine dependence, cigarettes, uncomplicated; F41.8 Other specified anxiety disorders; E11.9 Type 2 diabetes mellitus without complications; G89.4 Chronic pain syndrome; I10 Essential (primary) hypertension; E78.5 Hyperlipidemia, unspecified; I48.91 Unspecified atrial fibrillation; I51.89 Other ill-defined heart diseases; K21.9 Gastro-esophageal reflux disease without esophagitis; Z20.822 Contact with and (suspected) exposure to COVID-19; Z88.2 Allergy status to sulfonamides; Z88.5 Allergy status to narcotic agent; Z88.0 Allergy status to penicillin
CPT/HCPCS: 36415; 71046; 71275; 80048; 80053; 82607; 82728; 82746; 82948; 83036; 83540; 83550; 83735; 83880; 84443; 84484; 85025; 85027; 85380; 85610; 85730; 86738; 87449; 87899; 93005; 93306; 94640; 94667; 94668; 96365; 96366; 96367; 96368; 96372; 96375; 99285; A9270; G0378; J0456; J0696; J1650; Q9967; U0003; U0005

== ENCOUNTER 2022-10-26 10:39 | Emergency (ER) | payer MEDICARE, SELFPAY ==
--- NOTE | ~2022-10-26 | XR_ITS ---
XR chest 2V DATE: 10/26/2022 13:21 INDICATION: Cough, shortness of breath TECHNIQUE: PA and lateral views COMPARISON: October 22, 2022 CTA chest October 22, 2022 2 view chest FINDINGS: There is pulmonary vascular congestion and redistribution. Small bilateral pleural effusion s. Cardiomegaly. Thoracic aortic arch calcification. Mild infiltrate or atelectasis in the lower lung zones, left greater than right. There is improvement of right upper lobe infiltrate since October 22, 2022. Diffuse osteopenia. There is an anchor device overlying the left humeral head. Status post lower ante rior cervical spine surgical fusion. IMPRESSION: Cardiomegaly, pulmonary vascular congestion/redistribution and mild pleural effusions, morales ggesting congestive heart failure Improvement of right upper lobe infiltrate since October 22, 2022 Bilateral lower lung infiltrate or atelectasis, left greater than right Reviewed, dictated and finalized at location B. IMPRESSION: Cardiomegaly, pulmonary vascular congestion/redistribution and mild pleural effusions, suggesting congestive heart failure Improvement of right upper lobe infiltrate since October 22, 2022 Bilateral lower lung infiltrate or atelectasis, left greater than right
[2022-10-26 10:50] VITALS: BP 127/86; PULSE 106; RESP 16; TEMP 36.4; O2SAT 99
[2022-10-26 11:01] VITALS: O2SAT 96
[2022-10-26 12:40] VITALS: BP 162/94; PULSE 77; RESP 14; O2SAT 100
[2022-10-26] MEDS: LEVALBUTEROL NEB 1.25 MG/3 ML INHALATION (12:41)
[2022-10-26] MEDS: IPRATROPIUM BR 0.02% INH SOLN 0.5 MG/2.5 ML VIAL INHALATION (12:41)
--- NOTE | 2022-10-26 12:41 | PC.NURSE ---
RT at bedside to administered ordered breathing treatment.
[2022-10-26 12:42] VITALS: PULSE 110; RESP 20
--- NOTE | 2022-10-26 13:03 | ED.SOB ---
HPI - SOB/Dyspnea General Chief Complaint: Shortness of Breath/Dyspnea Stated Complaint: SOB Time Seen by Provider: 10/26/22 11:41 History of Present Illness HPI Narrative: Patient is a 72-year-old female who presents ER with shortness of breath. Reports she was just discharged from the hospital yesterday after being here for pneumonia. She woke up in the [place] and walk to the bathroom and noticed she was short of breath with exertion. The same is being occurring through the day where she is short of breath when she exerts herself. No new cough. No fevers or chills or sweats. Patient was receiving breathing treatments while in the hospital but does not have an inhaler or anything like that for home. No chest pain or chest pressure. No pain with deep breath. No leg swelling or pain. Related Data Home Medications Medication Instructions Recorded Confirmed duloxetine 60 mg capsule,delayed 60 mg PO BID 12/26/19 10/22/22 release (Cymbalta) metformin 500 mg tablet 500 mg PO BID 04/22/21 10/22/22 ergocalciferol (vitamin D2) 1,250 1,250 mcg PO WEEKLY 10/22/22 10/22/22 mcg (50,000 unit) capsule fluticasone propionate 50 See Rx Instructions .Route 10/22/22 10/22/22 mcg/actuation nasal .COMPLEX PRN Allergy Symptoms spray,suspension gabapentin 800 mg tablet 800 mg PO TID 10/22/22 10/22/22 hydrocodone 5 mg-acetaminophen 325 1 tablet PO QID PRN Back Pain 10/22/22 10/22/22 mg tablet ibuprofen 800 mg tablet See Rx Instructions .Route 10/22/22 10/22/22 .COMPLEX PRN Pain risperidone 1 mg tablet 1 mg QID 10/22/22 10/22/22 simvastatin 20 mg tablet 20 mg PO HS 10/22/22 10/22/22 Allergies Allergy/AdvReac Type Severity Reaction Status Date / Time morphine Allergy Unknown Itching Verified 10/22/22 09:10 Sulfa (Sulfonamide Allergy Unknown Unknown Verified 10/22/22 09:10 Antibiotics) erythromycin base Allergy Hives Verified 10/22/22 17:28 Penicillins Allergy Hives Verified 10/22/22 09:10 Review of Systems Review of Systems: All systems reviewed & are unremarkable except as noted in HPI and below Constitutional: Constitutional: Denies chills, Denies fatigue and Denies fever(s) ENT: Denies nasal congestion and Denies sore throat Cardiovascular: Cardiovascular: Denies chest pain and Denies radiating jaw, neck or arm pain Respiratory: Respiratory: Denies chest congestion, Reports cough and Reports dyspnea Gastrointestinal: Gastrointestinal: Denies abdominal pain, Denies diarrhea, Denies nausea and Denies vomiting Genitourinary: Genitourinary: Denies nocturia and Denies dysuria PMFSH Past Medical History Medical History Arthritis Chronic obstructive pulmonary disease Chronic pain syndrome Depression with anxiety Gastroesophageal reflux disease Hyperlipidemia Hypertension Kidney stones Nicotine use Shingles Type 2 diabetes mellitus Vitamin D deficiency Surgical History Surgical History History of appendectomy History of fusion of cervical spine C4 through C6. History of hernia repair History of lithotripsy Family History Family History Sibling Family history of blood dyscrasia Family history of malignant neoplasm Family history of seizure disorder Mother Family history of malignant neoplasm, Onset Age: 85 Family history of lymphoma, Onset Age: 85 Family history of atrial fibrillation, Onset Age: 85 Social History Social History Social History: Surrogate medical decision maker: Usha Ashley, granddaughter. Code status: Full code. Smoking packs per day: 0 Smoking cigarettes per day: 0.0 Years smoked: 4 Smoking pack-years: 0.00 Smoking status: Current every day smoker Tobacco type: cigarettes Second hand tobacco smoke exposure: No Alcohol i
[2022-10-26 13:09] VITALS: PULSE 84
[2022-10-26 14:23] LABS: Basophils Absolute Auto 0.1 K/mm3 (0.0-0.1); Basophils Percent Auto 0.7 % (0.2-1.2); Eosinophils Absolute Auto 0.2 K/mm3 (0-0.3); Eosinophils Percent Auto 3.1 % (0-4.4); Hematocrit 30.4 % (37.0-47.0); Hemoglobin 9.6 g/dL (12.0-15.0); Immature Granulocyte Absolute 0.04 K/mm3 (0.00-0.031); Immature Granulocyte Percent A 0.5 % (0-0.5); Lymphocytes Absolute Auto 1.69 K/mm3 (0.9-3.2); Lymphocytes Percent Auto 22.6 % (18.3-44.2); Mean Corpuscular HGB Conc 31.6 g/dl (32-36); Mean Corpuscular Volume 91.8 fl (80-100); Mean Platelet Volume 9.6 fl (7.4-10.4); Monocytes Absolute Auto 0.8 K/mm3 (0.1-0.6); Monocytes Percent Auto 10.5 % (2.6-8.5); Neutrophils Absolute Auto 4.7 K/mm3 (1.3-6.7); Neutrophils Percent Auto 62.6 % (45.5-73.1); Platelet Count Result 446 k/mm3 (150-375); Red Blood Count 3.31 M/mm3 (4.2-5.4); Red Cell Distribution Width 13.6 % (11.5-14.5); White Blood Count 7.5 K/mm3 (4.5-10.0)
[2022-10-26 14:34] LABS: Alanine Aminotransferase 27 U/L (6-35); Albumin Level 3.6 g/dL (3.5-5.1); Alkaline Phosphatase 67 U/L (38-126); Anion Gap 1 mmol/L (8-16); Aspartate Amino Transferase 23 U/L (14-36); Bilirubin,Total 0.5 mg/dL (0.2-1.3); Blood Urea Nitrogen 14 mg/dL (7-17); Calcium 9.3 mg/dL (8.4-10.2); Carbon Dioxide 32 mmol/L (22-30); Chloride 108 mmol/L (98-107); Estimated CRCL calculation 72 ml/min; Estimated Glomerular Filt Rate > 60; Glucose 102 mg/dL (65-110); Potassium 3.7 mmol/L (3.4-5.0); Sodium 141 mmol/L (137-145)
[2022-10-26 14:42] LABS: NT Pro B Type Natriuretic Pept 3290 pg/mL (19.9-100)
--- NOTE | 2022-10-26 14:47 | PC.NURSE ---
Notified by technology education instructor while in another patient's room that patient stated that she no longer wanted to be treated and was planning to leave the ER. Approx. 5 minutes later this RN entered the patient's room but the patient was not present and the patient's gown was lying on the stretcher. No patient belongings seen in the room. Patient is assumed to have eloped from the ER. MD and Charge made aware.
== END 2022-10-26 14:50 | disposition left against medical advice (07) ==
PROVIDERS: Emergency Provider Emergency Medicine; PCP Emergency Medicine
DX: J44.9 Chronic obstructive pulmonary disease, unspecified (principal); E78.5 Hyperlipidemia, unspecified; I10 Essential (primary) hypertension; E11.9 Type 2 diabetes mellitus without complications; E55.9 Vitamin D deficiency, unspecified; G89.4 Chronic pain syndrome; K21.9 Gastro-esophageal reflux disease without esophagitis; M19.90 Unspecified osteoarthritis, unspecified site; F41.8 Other specified anxiety disorders; Z87.442 Personal history of urinary calculi; Z98.1 Arthrodesis status; F17.210 Nicotine dependence, cigarettes, uncomplicated; I51.7 Cardiomegaly; R09.89 Other specified symptoms and signs involving the circulatory and respiratory systems; Z79.84 Long term (current) use of oral hypoglycemic drugs
CPT/HCPCS: 36415; 71046; 80053; 83880; 85025; 94640; 99283

== ENCOUNTER 2022-10-27 08:50 | Observation (INO) | payer MEDICARE, SELFPAY ==
[2022-10-27] VITALS (18 sets, daily range): BP systolic 150–171; BP diastolic 82–97; PULSE 74–108; RESP 12–24; TEMP 36.4–36.9; O2SAT 93–99; BMI 33.9
--- NOTE | ~2022-10-27 | XR_ITS ---
EXAMINATION: XR chest 2V DATE: 10/27/2022 09:20 INDICATION: Shortness of breath TECHNIQUE: PA and lateral views of the chest were obtained. COMPARISON: Chest radiograph dated 10/26/2022 FINDINGS: No significant change in opacities at the bilateral lower lung zones consistent with small bilateral pleural effusions with associated basilar atelectasis and/or pneumonia, left greater than right. Ther e are more subtle groundglass opacity in the right upper lung zone unchanged since most recent study but improved since 10/22/2022 consistent with improving pneumonia or pulmonary edema. Cardiomegaly wit h pulmonary vascular congestion. Lower cervical anterior spinal fusion with plate and screw fixation. Suture anchor at the left humeral head likely for prior rotator cuff repair. IMPRESSION: 1. Unchanged small bilateral pleural effusions with associated bibasilar atelectasis and/or pneumonia , left greater than right. 2. Persistent subtle groundglass opacity right upper lung zone, decreased since 10/22/2022 consistent with improving pneumonia or pulmonary edema. 3. Cardiomegaly. Reviewed, dictated and finalized at location A. IMPRESSION: 1. Unchanged small bilateral pleural effusions with associated bibasilar atelec tasis and/or pneumonia, left greater than right. 2. Persistent subtle groundglass opacity right upper lung zone, decreased since 10/22/2022 consistent with improving pneumonia or pulmonary edema. 3. Cardiomegaly.
--- NOTE | 2022-10-27 09:04 | ECG_ITS ---
Measurements Intervals [place] Rate: 84 P: 69 CA: 143 QRS: -11 QRSD: 77 T: 32 QT: 350 QTc: 416 Interpretive Statements SINUS RHYTHM WITH FREQUENT VENTRICULAR PREMATURE COMPLEXES WITH OCCASIONAL SUPRAVENTRICULAR PREMATURE COMPLEXES LOW QRS VOLTAGE IN PRECORDIAL LEADS [QRS DEFLECTION < 1.0 mV IN CHEST LEADS] ABNORMAL RHYTHM ECG COMPARED TO ECG 10/24/2022 07:31:12 SINUS RHYTHM NOW PRESENT Electronically Signed On 10-27-2022 17:50:53 CDT by Suni Toro M.D.
[2022-10-27 09:15] LABS: Basophils Absolute Auto 0.1 K/mm3 (0.0-0.1); Basophils Percent Auto 0.7 % (0.2-1.2); Eosinophils Absolute Auto 0.2 K/mm3 (0-0.3); Eosinophils Percent Auto 2.1 % (0-4.4); Hematocrit 31.7 % (37.0-47.0); Hemoglobin 10.2 g/dL (12.0-15.0); Immature Granulocyte Absolute 0.05 K/mm3 (0.00-0.031); Immature Granulocyte Percent A 0.6 % (0-0.5); Lymphocytes Absolute Auto 1.68 K/mm3 (0.9-3.2); Lymphocytes Percent Auto 20.4 % (18.3-44.2); Mean Corpuscular HGB Conc 32.2 g/dl (32-36); Mean Corpuscular Hemoglobin 28.7 pg (26-34); Mean Platelet Volume 9.9 fl (7.4-10.4); Monocytes Absolute Auto 0.8 K/mm3 (0.1-0.6); Monocytes Percent Auto 9.4 % (2.6-8.5); Neutrophils Absolute Auto 5.5 K/mm3 (1.3-6.7); Neutrophils Percent Auto 66.8 % (45.5-73.1); Platelet Count Result 470 k/mm3 (150-375); Red Blood Count 3.56 M/mm3 (4.2-5.4); Red Cell Distribution Width 13.6 % (11.5-14.5); White Blood Count 8.2 K/mm3 (4.5-10.0)
[2022-10-27 09:37] LABS: Alanine Aminotransferase 29 U/L (6-35); Albumin Level 3.6 g/dL (3.5-5.1); Alkaline Phosphatase 73 U/L (38-126); Anion Gap 4 mmol/L (8-16); Aspartate Amino Transferase 26 U/L (14-36); Bilirubin,Total 0.4 mg/dL (0.2-1.3); Blood Urea Nitrogen 15 mg/dL (7-17); Calcium 9.1 mg/dL (8.4-10.2); Carbon Dioxide 31 mmol/L (22-30); Chloride 106 mmol/L (98-107); Estimated Glomerular Filt Rate > 60; Glucose 87 mg/dL (65-110); Sodium 141 mmol/L (137-145)
[2022-10-27 09:47] LABS: INR 1.1; Partial Thromboplastin Time 31.1 SECONDS (22.3-36.8); Prothrombin Time 13.7 Seconds (11.1-14.7)
[2022-10-27 09:49] LABS: NT Pro B Type Natriuretic Pept 2130 pg/mL (19.9-100); Troponin I 0.013 ng/mL (0.000-0.034)
[2022-10-27] MEDS: FUROSEMIDE INJ 40 MG/4 ML VIAL IV PUSH ×2 (11:11→17:19)
--- NOTE | 2022-10-27 11:53 | ED.SOB ---
HPI - SOB/Dyspnea General Chief Complaint: Shortness of Breath/Dyspnea Stated Complaint: sob Time Seen by Provider: 10/27/22 10:09 History of Present Illness HPI Narrative: Pt presents with persistent shortness of breath. Pt was recently admitted to hospital for pneumonia and discharged. Pt returned yesterday to ED with SOB but left AMA prior to completion of work up. Pt returns today with persistent SOB. Pt denies CP or fever. Pt ios willing to stay today if needed. Related Data Home Medications Medication Instructions Recorded Confirmed duloxetine 60 mg capsule,delayed 60 mg PO BID 12/26/19 10/27/22 release (Cymbalta) ergocalciferol (vitamin D2) 1,250 1,250 mcg PO WEEKLY 10/22/22 10/27/22 mcg (50,000 unit) capsule fluticasone propionate 50 See Rx Instructions .Route 10/22/22 10/27/22 mcg/actuation nasal .COMPLEX PRN Allergy Symptoms spray,suspension gabapentin 800 mg tablet 400 mg PO TID 10/22/22 10/27/22 hydrocodone 5 mg-acetaminophen 325 1 tablet PO QID PRN Back Pain 10/22/22 10/27/22 mg tablet ibuprofen 800 mg tablet See Rx Instructions .Route 10/22/22 10/27/22 .COMPLEX PRN Pain risperidone 1 mg tablet 1 mg QID 10/22/22 10/27/22 simvastatin 20 mg tablet 20 mg PO HS 10/22/22 10/27/22 metoprolol tartrate 25 mg tablet 25 mg PO Q12H 10/27/22 10/27/22 nitrofurantoin 100 mg PO BID 10/27/22 10/27/22 monohydrate/macrocrystals 100 mg capsule Allergies Allergy/AdvReac Type Severity Reaction Status Date / Time morphine Allergy Unknown Itching Verified 10/27/22 13:56 Sulfa (Sulfonamide Allergy Unknown Unknown Verified 10/27/22 13:56 Antibiotics) erythromycin base Allergy Hives Verified 10/27/22 13:56 Penicillins Allergy Hives Verified 10/27/22 13:56 Review of Systems Review of Systems: All systems reviewed & are unremarkable except as noted in HPI and below PMFSH Past Medical History Medical History (Updated 10/27/22 @ 13:57 by Mony Wood PA-C) Arthritis Chronic obstructive pulmonary disease Chronic pain syndrome Depression with anxiety Diastolic dysfunction Echocardiogram on 10/23/2022: normal LV size and function, estimated EF of 55 to 60%, diastolic dysfunction, moderate left atrial enlargement, and mild pulmonary hypertension. Gastroesophageal reflux disease Hyperlipidemia Hypertension Kidney stones Mild pulmonary hypertension Estimated PASP of 46 mmHg on echo in 10/2022. Nicotine use Shingles Type 2 diabetes mellitus Vitamin D deficiency Surgical History Surgical History History of appendectomy History of fusion of cervical spine C4 through C6. History of hernia repair History of lithotripsy Family History Family History Sibling Family history of blood dyscrasia Family history of malignant neoplasm Family history of seizure disorder Mother Family history of malignant neoplasm, Onset Age: 85 Family history of lymphoma, Onset Age: 85 Family history of atrial fibrillation, Onset Age: 85 Social History Social History Social History: Surrogate medical decision maker: Usha Ashley, granddaughter. Code status: Full code. Smoking packs per day: 0 Smoking cigarettes per day: 0.0 Years smoked: 4 Smoking pack-years: 0.00 Smoking status: Former smoker Tobacco type: cigarettes Second hand tobacco smoke exposure: No Smoking end date: 10/22/22 Alcohol intake: never Substance use: never Substance use type: does not use Lack of Transportation: No Lack of Food: Never True Current Housing: I Have Housing Concerned About Future Housing: No Difficulty Paying Gas/Electric Bills: No Difficulty Paying for Meds: No Currently Unemployed: No Education: Bachelor's Degree Difficulty w/ Childcare or Family Care: No Living arrangements: with fam
--- NOTE | 2022-10-27 13:45 | PM.IMHP ---
H&P: HPI History of Present Illness Date/Time: 10/27/22 13:45 Chief Complaint: Shortness of breath. Narrative: This is a 72-year-old female smoker with COPD, diastolic dysfunction, mild pulmonary hypertension, hypertension, hyperlipidemia, GERD, depression, anxiety, and chronic pain syndrome who presented to the emergency department via private vehicle from home for evaluation of shortness of breath. Patient provides the following history. She is known to myself and the hospitalist service from a recent admission between October 22 and October 25, 2022 at which time she was admitted with right upper lobe pneumonia after presenting with shortness of breath. She was treated with azithromycin and ceftriaxone while in the hospital and she finished a course of levofloxacin over the next couple of days. She was seen in consultation by Cardiology due to ongoing sinus tachycardia with frequent APCs and brief episodes of PSVT. She was started on metoprolol tartrate 25 mg b.i.d. with improvement in her rate although she reportedly did not have that filled and has not been taking the metoprolol. Echocardiogram at that time showed abnormal diastolic dysfunction. In any event she reports feeling quite good when she got home and in fact she did some laundry when she got home. She ate dinner and went to bed however when she woke up she was again not feeling very well with mild sensations of racing heart, shortness of breath, ongoing cough, and she also endorses orthopnea which is apparently a new symptom for her. Her symptoms have continued and she came back in for evaluation. She denies fever, chills, sweats, sinus congestion, sore throat, chest pain, pleuritic pain, nausea, vomiting, and diarrhea. She denies edema and calf pain. Chest x-ray in the ER showed persistent subtle ground-glass opacities in right upper lung zone which is decreased from prior radiographs consistent with improving pneumonia as well as unchanged small bilateral pleural effusions. With her constellation of finding she was given a dose of furosemide and she reports having good urine output since that time. She is being admitted overnight for diuresis with presumed diastolic congestive heart failure exacerbation. Review of Systems Review of Systems: Twelve systems were reviewed and are negative except for as per HPI. [facility] Past Medical History Medical History (Updated 10/28/22 @ 01:00 by Mony Wood PA-C) Arthritis Chronic obstructive pulmonary disease Chronic pain syndrome Depression with anxiety Diastolic dysfunction Echocardiogram on 10/23/2022: normal LV size and function, estimated EF of 55 to 60%, diastolic dysfunction, moderate left atrial enlargement, and mild pulmonary hypertension. Gastroesophageal reflux disease Hyperlipidemia Hypertension Kidney stones Mild pulmonary hypertension Estimated PASP of 46 mmHg on echo in 10/2022. Nicotine use Shingles Type 2 diabetes mellitus Diet-controlled, recent A1c was 6.0. Vitamin D deficiency Surgical History Surgical History History of appendectomy History of fusion of cervical spine C4 through C6. History of hernia repair History of lithotripsy Family History Family History Sibling Family history of blood dyscrasia Family history of malignant neoplasm Family history of seizure disorder Mother Family history of malignant neoplasm, Onset Age: 85 Family history of lymphoma, Onset Age: 85 Family history of atrial fibrillation, Onset Age: 85 Social History Social History Social History: Surrogate medical decision maker: Usha Ashley, granddaughter. Code status: Full code. Smoking packs per day: 0 Smoking cigarettes per day: 0.0 Years smoked: 4 Smoking pack-years: 0.00 Smoking status: Former smoker Tobacco type: c
--- NOTE | 2022-10-27 13:55 | ADMGEN ---
This patient, Ruchi Holden, was admitted to 2 Medical Room 242-01. Patient/family oriented to hospital policies and general routines including ID bracelet, bed and alarms, visiting hours, pain management, procedures, bathroom and other care routines, personal items, smoking policy, room service/diet, and visiting hours. Information on how to activate the Rapid Response Team has been discussed. Patient/Family are encouraged to report perceived risks to care and to ask questions if they do not understand what they are told or what they should do.
[2022-10-27 15:45] LABS: Troponin I < 0.012 ng/mL (0.000-0.034)
[2022-10-27] MEDS: HYDROcodone/acetaminophen (*CRX) 5-325 MG TABLET 1 TAB PO ×2 (17:53→23:07)
[2022-10-27] MEDS: GABAPENTIN 400 MG CAPSULE PO (18:25)
[2022-10-27] MEDS: risperiDONE 1 MG TABLET PO (18:25)
[2022-10-27 18:43] LABS: Troponin I 0.012 ng/mL (0.000-0.034)
[2022-10-27] MEDS: SIMVASTATIN 20 MG TABLET PO (20:42)
[2022-10-27] MEDS: METOPROLOL TARTRATE 25 MG TABLET PO (20:42)
[2022-10-27] MEDS: risperiDONE 1 MG TABLET BY MOUTH (20:42)
[2022-10-28] VITALS (8 sets, daily range): BP systolic 129–171; BP diastolic 67–93; PULSE 65–110; RESP 16; TEMP 36.3–37; O2SAT 93–94
[2022-10-28] MEDS: HYDROcodone/acetaminophen (*CRX) 5-325 MG TABLET 1 TAB PO ×3 (04:30→14:06)
[2022-10-28 05:39] LABS: Anion Gap 5 mmol/L (8-16); Blood Urea Nitrogen 15 mg/dL (7-17); Calcium 9.5 mg/dL (8.4-10.2); Carbon Dioxide 34 mmol/L (22-30); Chloride 102 mmol/L (98-107); Estimated CRCL calculation 72 ml/min; Estimated Glomerular Filt Rate > 60; Glucose 108 mg/dL (65-110); Potassium 3.6 mmol/L (3.4-5.0); Sodium 141 mmol/L (137-145)
--- NOTE | 2022-10-28 07:24 | PM.IMPN ---
Progress Note: A&P Assessment and Plan (1) Acute on chronic diastolic congestive heart failure: Code(s): I50.33 - Acute on chronic diastolic (congestive) heart failure Status: Acute (2) Shortness of breath: Code(s): R06.02 - Shortness of breath Status: Acute (3) Bilateral pleural effusion: Code(s): J90 - Pleural effusion, not elsewhere classified Status: Acute (4) Right upper lobe pneumonia: Code(s): J18.9 - Pneumonia, unspecified organism Status: Acute (5) Chronic obstructive pulmonary disease: Code(s): J44.9 - Chronic obstructive pulmonary disease, unspecified Status: Acute (6) Nicotine use: Code(s): Z72.0 - Tobacco use Status: Acute Subjective Date/time seen: 10/28/22 07:24 Exam Narrative: General:?Nontoxic-appearing female sitting up in bed in no distress. Weight: 81.5 kg.? BMI: 33.9. HEENT:??PERRL, EOMI. Sclera anicteric. Oral mucosa moist. Neck:??Supple. No JVD. Respiratory:?Occasional cough. Respirations are nonlabored and she is speaking in full sentences. Lung sounds are a bit diminished at the bases with fine crackles. Cardiovascular:?Tachycardic with occasional ectopy. Gastrointestinal:??Abdomen is soft, nontender, and nondistended with positive bowel sounds. Skin:??Warm and dry.? No rash or lesions on limited exam. Extremities:??No cyanosis, clubbing, or edema. Radial and pedal pulses intact. No knots or cords. Negative Zully sign bilaterally. Neurological:??Alert.? Cranial nerves 2-12 are grossly intact. No gross focal deficits to casual conversation. Psychiatric:??Pleasant and cooperative with appropriate mood Objective Data Vital Signs Vital Signs: Vital Signs - 24 hr 10/27/22 08:59 10/27/22 09:13 10/27/22 08:58 Temperature 97.6 F Pulse Rate 88 81 Respiratory Rate 24 H 23 H Blood Pressure 171/90 H Pulse Oximetry 94 94 96 Oxygen Delivery Room Air Room Air 10/27/22 09:00 10/27/22 09:01 10/27/22 09:02 Temperature Pulse Rate 102 H 84 84 Respiratory Rate 18 24 H 16 Blood Pressure 153/91 H 171/90 H Pulse Oximetry 95 Oxygen Delivery 10/27/22 09:15 10/27/22 11:57 10/27/22 12:00 Temperature Pulse Rate 77 97 93 Respiratory Rate 15 20 Blood Pressure Pulse Oximetry 94 Oxygen Delivery 10/27/22 12:15 10/27/22 12:30 10/27/22 12:45 Temperature Pulse Rate 108 H 78 93 Respiratory Rate 20 20 Blood Pressure Pulse Oximetry 93 96 Oxygen Delivery 10/27/22 13:11 10/27/22 14:00 10/27/22 16:00 Temperature 97.5 F L Pulse Rate 74 94 98 Respiratory Rate 12 16 Blood Pressure 162/82 H 152/84 H Pulse Oximetry 95 99 Oxygen Delivery 10/27/22 20:42 10/27/22 20:00 10/27/22 22:00 Temperature 98.4 F Pulse Rate 85 86 85 Respiratory Rate 16 Blood Pressure 150/97 H Pulse Oximetry 93 Oxygen Delivery 10/28/22 00:00 10/28/22 04:00 10/28/22 05:49 Temperature 97.3 F L Pulse Rate 66 73 65 Respiratory Rate 16 Blood Pressure 129/67 Pulse Oximetry 93 Oxygen Delivery Intake/Output Intake/Output: Intake & Output 10/25/22 10/26/22 10/27/22 10/28/22 23:59 23:59 23:59 23:59 Intake Total 100 500 Output Total 300 Balance -200 500 Meds/Results Medications: Active Medications Generic Name Dose Route Start Last Admin Trade Name Freq PRN Reason Stop Dose Admin Hydrocodone Bitart/Acetaminophen 1 tab 10/27/22 17:15 10/28/22 04:30 Hydrocodone/Acetaminophen (*Crx) 5-325 Mg Tablet PO 1 tab QID PRN Administration Back Pain Duloxetine HCl 60 mg 10/28/22 09:00 Duloxetine Hcl 60 Mg Capsule. PO Q12HR ROSE MARY Enoxaparin Sodium 40 mg 10/28/22 09:00 Enoxaparin 40 Mg/0.4 Ml Syringe SUB-Q DAILY ROSE MARY Fluticasone Propionate 2 spray 10/27/22 17:15 Fluticasone Propionate 0.05% Na Spr 16 Gm Btl (*Bkc) NASAL DAILY PRN Allergy Symptoms Furosemide 20 mg 10/28/22 09:00 Furosemide Inj 40 Mg/4
[2022-10-28] MEDS: risperiDONE 1 MG TABLET BY MOUTH ×2 (09:38→12:42)
[2022-10-28] MEDS: GABAPENTIN 400 MG CAPSULE PO ×2 (09:38→12:42)
[2022-10-28] MEDS: POTASSIUM CHLORIDE 20 MEQ TABLET 60 MEQ PO (09:39)
[2022-10-28] MEDS: METOPROLOL TARTRATE 25 MG TABLET PO (09:40)
[2022-10-28] MEDS: DULoxetine HCL 60 MG CAPSULE.DR PO (09:40)
[2022-10-28] MEDS: FUROSEMIDE INJ 40 MG/4 ML VIAL 20 MG IV PUSH (09:41)
[2022-10-28] MEDS: ENOXAPARIN 40 MG/0.4 ML SYRINGE SUB-Q (09:42)
--- NOTE | 2022-10-28 13:07 | PC.NURSE ---
On 10/28/22, the student, [Thelma Capone], provided care and completed [facility] documentation on this patient. I have reviewed the student's documentation and agree with the findings.
--- NOTE | 2022-10-28 21:53 | PM.DS ---
DS: Admitting Diagnosis Discharge Date 10/28/22 Admitting Diagnosis Shortness of breath Acute on chronic diastolic (congestive) heart failure Bilateral pleural effusion: Chronic obstructive pulmonary disease, unspecified Tobacco dependence DS: Discharge Diagnosis Discharge Diagnosis (1) Acute on chronic diastolic congestive heart failure: Code(s): I50.33 - Acute on chronic diastolic (congestive) heart failure Status: Acute Assessment and Plan: Patient presented back to the emergency department for evaluation of shortness of breath. She described having orthopnea and states she feels much better when sitting completely elevated. With orthopnea and elevated proBNP, she likely has a mild acute on chronic diastolic congestive heart failure exacerbation and she was initiated on IV lasix BID. Close monitoring of volume status, renal function, and electrolytes. Chest x-ray showed small pleural effusions and improving pneumonia. PE less likely by history. She improved with diuretics and did not require supplemental oxygen. She reported symptoms resolved and she was monitored whle ambulating inthe hallway that did not show increased work of breathing or desaturation, spO2>94% room air. (2) Shortness of breath: Code(s): R06.02 - Shortness of breath Status: Acute Assessment and Plan: Secondary to above. (3) Bilateral pleural effusion: Code(s): J90 - Pleural effusion, not elsewhere classified Status: Acute Assessment and Plan: Secondary to above. Noted on imaging. (4) Right upper lobe pneumonia: Code(s): J18.9 - Pneumonia, unspecified organism Status: Resolved Assessment and Plan: Patient previously hospitalized for pneumonia. She reported completing all of her antibiotics. (5) Chronic obstructive pulmonary disease: Code(s): J44.9 - Chronic obstructive pulmonary disease, unspecified Status: Chronic Assessment and Plan: No wheezing on exam and does not appear to be in acute exacerbation. (6) Nicotine use: Code(s): Z72.0 - Tobacco use Status: Chronic Assessment and Plan: Smoking cessation is encouraged and was discussed. She declines the need for nicotine patch. DS: Summary Hospital Course Reason for hospitalization: SOB Hospital Course: Patient is a 72-year-old female smoker with COPD, diastolic CHF, mild pulmonary hypertension, hypertension, hyperlipidemia, GERD, depression, anxiety, and chronic pain syndrome who presented to the emergency department via private vehicle from home for evaluation of shortness of breath. She is known to myself and the hospitalist service from a recent admission between October 22 and October 25, 2022 at which time she was admitted with right upper lobe pneumonia after presenting with shortness of breath. She was treated with azithromycin and ceftriaxone while in the hospital and she finished a course of levofloxacin over the next couple of days. She was seen in consultation by Cardiology due to ongoing sinus tachycardia with frequent PACs and brief episodes of PSVT. She was started on metoprolol tartrate 25 mg b.i.d. with improvement in her rate although she reportedly did not have that filled and has not been taking the metoprolol. Echocardiogram at that time showed abnormal diastolic dysfunction.She reported feeling quite good when she got home and in fact she did some laundry when she got home. She ate dinner and went to bed however when she woke up she was again not feeling very well with mild sensations of racing heart, shortness of breath, ongoing cough, and she also endorsed orthopnea. Her symptoms have continued and she came back in for evaluation. She denied fever, chills, sweats, sinus congestion, sore throat, chest pain, pleuritic pain, nausea, vomiting, and diarrhea. She denied edema and calf pain. Chest x-ray in the ER showed persistent subtle ground-glass opacities i
== END 2022-10-28 16:28 | disposition home or self-care (01) ==
LOC: ANHED 12:25 → ANH2MED 13:04
PROVIDERS: Physician Assistant; Admitting Provider Family Medicine; Emergency Provider Emergency Medicine; PCP Emergency Medicine; Visit Provider Family Medicine
DX: I11.0 Hypertensive heart disease with heart failure (principal); I50.33 Acute on chronic diastolic (congestive) heart failure; J90 Pleural effusion, not elsewhere classified; J18.9 Pneumonia, unspecified organism; J44.9 Chronic obstructive pulmonary disease, unspecified; M19.90 Unspecified osteoarthritis, unspecified site; G89.4 Chronic pain syndrome; R94.31 Abnormal electrocardiogram [ECG] [EKG]; F41.8 Other specified anxiety disorders; R91.8 Other nonspecific abnormal finding of lung field; K21.9 Gastro-esophageal reflux disease without esophagitis; I27.20 Pulmonary hypertension, unspecified; R00.1 Bradycardia, unspecified; E11.9 Type 2 diabetes mellitus without complications; E78.5 Hyperlipidemia, unspecified; E55.9 Vitamin D deficiency, unspecified; M54.9 Dorsalgia, unspecified; Z87.891 Personal history of nicotine dependence; Z87.01 Personal history of pneumonia (recurrent); Z79.51 Long term (current) use of inhaled steroids; Z79.891 Long term (current) use of opiate analgesic; Z79.1 Long term (current) use of non-steroidal anti-inflammatories (NSAID); Z79.899 Other long term (current) drug therapy; Z82.49 Family history of ischemic heart disease and other diseases of the circulatory system
CPT/HCPCS: 36415; 71046; 80048; 80053; 83735; 83880; 84484; 85025; 85610; 85730; 93005; 96372; 96374; 96376; 99285; A9270; G0378; J1650; J1940

== ENCOUNTER 2022-11-19 09:14 | Outpatient (CLI) | payer MEDICARE, SELFPAY ==
[2022-11-19 09:37] LABS: Hematocrit 37.7 % (37.0-47.0); Hemoglobin 12.3 g/dL (12.0-15.0); Mean Corpuscular HGB Conc 32.6 g/dl (32-36); Mean Corpuscular Hemoglobin 29.4 pg (26-34); Mean Platelet Volume 10.9 fl (7.4-10.4); Platelet Count Result 248 k/mm3 (150-375); Red Blood Count 4.19 M/mm3 (4.2-5.4); Red Cell Distribution Width 14.7 % (11.5-14.5); White Blood Count 7.5 K/mm3 (4.5-10.0)
[2022-11-19 09:48] LABS: Alanine Aminotransferase 16 U/L (6-35); Albumin Level 4.2 g/dL (3.5-5.1); Alkaline Phosphatase 59 U/L (38-126); Anion Gap 5 mmol/L (8-16); Aspartate Amino Transferase 23 U/L (14-36); Bilirubin,Total 0.5 mg/dL (0.2-1.3); Blood Urea Nitrogen 18 mg/dL (7-17); Calcium 9.9 mg/dL (8.4-10.2); Carbon Dioxide 34 mmol/L (22-30); Chloride 100 mmol/L (98-107); Cholesterol 188 mg/dL (0-200); Estimated Glomerular Filt Rate > 60; Glucose 106 mg/dL (65-110); HDL Direct 67 mg/dL; Potassium 3.7 mmol/L (3.4-5.0); Sodium 139 mmol/L (137-145); Triglycerides 166 mg/dL (<150)
[2022-11-19 09:51] LABS: Magnesium 2.2 mg/dL (1.6-2.3)
[2022-11-19 09:59] LABS: Hemoglobin A1C 6.1 % (<5.7); LDL Cholesterol Direct 85 mg/dL
[2022-11-24 13:50] LABS: Vitamin D 1,25 (OH)2 Total 41 pg/mL (18-72); Vitamin D2 1,25 (OH)2 21 pg/mL; Vitamin D3 1,25 (OH)2 20 pg/mL
== END 2022-11-19 09:15 | disposition home or self-care (01) ==
PROVIDERS: Nurse Practitioner Family; PCP Emergency Medicine; Visit Provider Nurse Practitioner Adult Health
DX: E11.9 Type 2 diabetes mellitus without complications (principal); E55.9 Vitamin D deficiency, unspecified; E78.5 Hyperlipidemia, unspecified; I50.33 Acute on chronic diastolic (congestive) heart failure; E87.6 Hypokalemia
CPT/HCPCS: 36415; 80053; 80061; 82652; 83036; 83735; 84443; 85027

== ENCOUNTER 2022-12-10 08:52 | Emergency (ER) | payer MEDICARE, SELFPAY ==
[2022-12-10 08:54] VITALS: BP 139/77; PULSE 60; RESP 16; TEMP 36.4; O2SAT 97
[2022-12-10 09:09] VITALS: BP 129/74; PULSE 86; RESP 18; TEMP 36.4; O2SAT 96
[2022-12-10 09:19] LABS: Appearance Urine Clear (Clear); Bacteria Urine None Seen /hpf; Bilirubin Urine Negative (Negative); Blood Urine Negative (Negative); Color Urine Yellow (Yellow); Glucose Urine UA Negative (Negative); Ketones Urine Negative (Negative); Leukocyte Esterase Ur 1+ LEU/UL (Negative); Nitrate Urine Negative (Negative); Non Pathogenic Casts 0-2; Protein Urine Negative (Negative); Specific Grav Ur 1.015 (1.001-1.035); Squamous Epithelial Cell Urine None seen /hpf (Few); Urobilinogen Urine 0.2 mg/dL (<2.0)
[2022-12-10 09:20] LABS: Add Urine Microscopic? YES
--- NOTE | 2022-12-10 09:27 | ED.FEMALEGU ---
HPI - Female Genitourinary General Chief complaint: Urogenital-Female Stated complaint: UTI symptoms Time Seen by Provider: 12/10/22 08:56 Source: patient Mode of arrival: ambulatory Limitations: no limitations History of Present Illness HPI Narrative: This is a 72-year-old female who presents to the ED with chief complaint of urinary tract infection symptoms for the past week. Patient states she was seen initially for this and given Macrobid. She feels that it is not working. She has taken the full prescription. She is having urgency, dysuria and hematuria. Denies any fevers, back pain, flank pain, abdominal pain, nausea, vomiting. States she feels otherwise fine. Related Data Home Medications Medication Instructions Recorded Confirmed duloxetine 60 mg capsule,delayed 60 mg PO BID 12/26/19 10/27/22 release (Cymbalta) ergocalciferol (vitamin D2) 1,250 1,250 mcg PO WEEKLY 10/22/22 10/27/22 mcg (50,000 unit) capsule gabapentin 800 mg tablet 400 mg PO TID 10/22/22 10/27/22 ibuprofen 800 mg tablet See Rx Instructions .Route 10/22/22 10/27/22 .COMPLEX PRN Pain risperidone 1 mg tablet 1 mg QID 10/22/22 10/27/22 simvastatin 20 mg tablet 20 mg PO HS 10/22/22 10/27/22 metoprolol tartrate 25 mg tablet 25 mg PO Q12H 10/27/22 10/27/22 Allergies Allergy/AdvReac Type Severity Reaction Status Date / Time morphine Allergy Unknown Itching Verified 12/10/22 09:09 Sulfa (Sulfonamide Allergy Unknown Unknown Verified 12/10/22 09:09 Antibiotics) erythromycin base Allergy Hives Verified 12/10/22 09:09 Penicillins Allergy Hives Verified 12/10/22 09:09 Review of Systems Review of Systems: CONSTITUTIONAL: Denies fever, chills, or sweats. EYES: Denies visual changes, redness, or discharge. ENT: Denies rhinorrhea, congestion, sore throat, or otalgia. CARDIOVASCULAR: Denies chest pain, palpitations, or edema. RESPIRATORY: Denies cough or dyspnea. GASTROINTESTINAL: Denies abdominal pain, nausea, vomiting, or diarrhea. GENITOURINARY: See HPI SKIN: Denies rash or itching. MUSCULOSKELETAL: Denies back pain, joint pain, or myalgia. NEUROLOGIC: Denies headache, numbness, dizziness, or weakness. PSYCHIATRIC: Denies anxiety or depression. [facility] Past Medical History Medical History Arthritis Chronic obstructive pulmonary disease Chronic pain syndrome Depression with anxiety Diastolic dysfunction Echocardiogram on 10/23/2022: normal LV size and function, estimated EF of 55 to 60%, diastolic dysfunction, moderate left atrial enlargement, and mild pulmonary hypertension. Dysuria Gastroesophageal reflux disease Hyperlipidemia Hypertension Kidney stones Mild pulmonary hypertension Estimated PASP of 46 mmHg on echo in 10/2022. Nicotine use Shingles Type 2 diabetes mellitus Diet-controlled, recent A1c was 6.0. Urinary frequency Vitamin D deficiency Surgical History Surgical History History of appendectomy History of fusion of cervical spine C4 through C6. History of hernia repair History of lithotripsy Family History Family History Sibling Family history of blood dyscrasia Family history of malignant neoplasm Family history of seizure disorder Mother Family history of malignant neoplasm, Onset Age: 85 Family history of lymphoma, Onset Age: 85 Family history of atrial fibrillation, Onset Age: 85 Social History Social History (Updated 12/04/22 @ 10:11 by Glenna Ortiz MA) Social History: Surrogate medical decision maker: Usha Ashley, granddaughter. Code status: Full code. Smoking packs per day: 0 Smoking cigarettes per day: 0.0 Years smoked: 4 Smoking pack-years: 0.00 Smoking status: Former smoker Tobacco type: cigarettes Second hand tobacco smoke exposure: No Smoking end date: 10/22/22 Alc
[2022-12-10 09:45] VITALS: BP 124/66; PULSE 82; RESP 16; O2SAT 97
== END 2022-12-10 09:48 | disposition home or self-care (01) ==
LOC: ANHED 09:40
PROVIDERS: Emergency Medicine; Emergency Provider Physician Assistant; PCP Emergency Medicine
DX: N39.0 Urinary tract infection, site not specified (principal); J44.9 Chronic obstructive pulmonary disease, unspecified; E11.9 Type 2 diabetes mellitus without complications; I10 Essential (primary) hypertension; I27.20 Pulmonary hypertension, unspecified; E78.5 Hyperlipidemia, unspecified; G89.4 Chronic pain syndrome; K21.9 Gastro-esophageal reflux disease without esophagitis; E55.9 Vitamin D deficiency, unspecified; M19.90 Unspecified osteoarthritis, unspecified site; Z87.442 Personal history of urinary calculi; Z98.1 Arthrodesis status; Z87.891 Personal history of nicotine dependence
CPT/HCPCS: 81001; 87086; 99283

== ENCOUNTER 2023-04-08 09:49 | Outpatient (CLI) | payer MEDICARE, SELFPAY ==
--- NOTE | ~2023-04-08 | MM_ITS ---
EXAMINATION: MM screening ayde BI w tia HISTORY: Screening mammogram TECHNIQUE: Craniocaudal and mediolateral oblique 3-D tomosynthesis images were obtained and synthetic 2-D images were generated. CAD analysis was submitted and interpreted. COMPARISON: 01/23/2022, 04/08/2020, 10/22/2017 bilateral screening mammogram examinations BREAST PARENCHYMAL COMPOSITION: There are scattered areas of fibroglandular density. FINDINGS: There is no evidence of suspicious mass, calcification, or architectural distortion to sugg est malignancy in either breast. There has been no suspicious interval change. IMPRESSION: 1. No mammographic evidence of malignancy. 2. Recommend routine screening mammography in one year. BI-RADS Category 1: Negative Reviewed, dictated and finalized at location A.
--- NOTE | ~2023-04-08 | DEXA_ITS ---
Bone Density Report Name: BHANU VELEZ Age: 72 Sex: Female Ethnicity: White Date of : 1950 Indication: osteopenia; height loss; postmenopausal Referring Provider: ANSELMO MELTON Study: Bone densitometry was performed. Exam Date: April 08, 2023 Accession number: [id number] Bone Density: Region BMD T-score Z-score Classification AP Spine(L1-L4) 0.813 -2.1 0.0 Osteopenia Femoral Neck (Left) 0.670 -1.6 0.2 Osteopenia Total Hip (Left) 0.791 -1.2 0.3 Osteopenia Femoral Neck (Right) 0.678 -1.5 0.3 Osteopenia Total Hip (Right) 0.740 -1.7 -0.1 Osteopenia Total Hip Mean 0.766 -1.5 0.1 Osteopenia World Health Organization criteria for BMD impression classify patients as: Normal (T-score at or above -1.0), Osteopenia (T-score between -1.0 and -2.5), or Osteoporosis (T-score at or below -2.5). 10-year Fracture Risk(1): Major Osteoporotic Fracture 10% Hip Fracture 2.6% Reported Risk Factors: [place] (), Neck BMD=0.670, BMI=31.5, smoking (1) FRAX(R) Version 3.08. Fracture probability calculated for an untreated patient. Fracture probability may be lower if the patient has received treatment. Previous Exams: Region Exam Age BMD T-score BMD Change BMD Change Date g/cm2 vs Baseline vs Previous AP Spine (L1-L4) 04/08/2023 72 0.813 -2.1 0.021 (2.7%)# 0.021 (2.7%)# 03/12/2016 65 0.792 -2.3 Total Hip(Left) 04/08/2023 72 0.791 -1.2 -0.004 (-0.5%) -0.004 (-0.5%) 03/12/2016 65 0.795 -1.2 Total Hip(Right) 04/08/2023 72 0.740 -1.7 -0.059 (-7.4%) -0.059 (-7.4%) 03/12/2016 65 0.799 -1.2 *Denotes significance at 95% confidence level, LSC for AP Spine = 0.022 g/cm2, LSC for Total Hip = 0.027 g/cm2 # Denotes dissimilar scan types or analysis methods Clinical Information Provided by Patient: Smokes Has used the following medications: Vitamin D Patient maximum height was 64 Menopause Age: 56 Onset of menses at age 17 Number of children 2 Impression: The patient has low bone mass, based on the Total Spine T-score. The patient has an estimated ten-year risk of hip fracture of 2.6% and an estimated ten-year risk of major fracture of 10%, based on the WHO FRAX algorithm. The patient has risk factors, including: smoking. No significant bone loss was observed. Discussion: BONE DENSITY IS LOW AT ONE OR MORE SKELETAL SITES. This patient's lowest T-score is low at one or more skeletal sites. It
== END 2023-04-08 09:50 | disposition home or self-care (01) ==
PROVIDERS: PCP Emergency Medicine; Visit Provider Emergency Medicine
DX: Z12.31 Encounter for screening mammogram for malignant neoplasm of breast (principal); E55.9 Vitamin D deficiency, unspecified; Z78.0 Asymptomatic menopausal state; M85.88 Other specified disorders of bone density and structure, other site; M85.852 Other specified disorders of bone density and structure, left thigh; M85.851 Other specified disorders of bone density and structure, right thigh
CPT/HCPCS: 77063; 77067; 77080

== ENCOUNTER 2023-04-15 09:37 | Outpatient (CLI) | payer MEDICARE, SELFPAY ==
[2023-04-15 10:09] LABS: Appearance Urine Clear (Clear); Bilirubin Urine Negative (Negative); Blood Urine Negative (Negative); Color Urine Yellow (Yellow); Glucose Urine UA Negative (Negative); Ketones Urine Negative (Negative); Leukocyte Esterase Ur Negative LEU/UL (Negative); Nitrate Urine Negative (Negative); Protein Urine Negative (Negative); Specific Grav Ur 1.019 (1.001-1.035); Urobilinogen Urine 0.2 mg/dL (<2.0); pH Urine 6.5 (5.0-9.0)
[2023-04-15 10:15] LABS: Alanine Aminotransferase 15 U/L (6-35); Albumin Level 4.3 g/dL (3.5-5.1); Alkaline Phosphatase 56 U/L (38-126); Anion Gap 4 mmol/L (8-16); Aspartate Amino Transferase 23 U/L (14-36); Bilirubin,Total 0.6 mg/dL (0.2-1.3); Blood Urea Nitrogen 18 mg/dL (7-17); Calcium 9.6 mg/dL (8.4-10.2); Carbon Dioxide 27 mmol/L (22-30); Chloride 105 mmol/L (98-107); Cholesterol 183 mg/dL (0-200); Estimated Glomerular Filt Rate > 60; Glucose 101 mg/dL (65-110); HDL Direct 68 mg/dL; Potassium 4.1 mmol/L (3.4-5.0); Sodium 136 mmol/L (137-145); Triglycerides 175 mg/dL (<150)
[2023-04-15 10:19] LABS: Add Urine Microscopic? NO
[2023-04-15 10:23] LABS: Hemoglobin A1C 5.7 % (<5.7)
[2023-04-15 10:25] LABS: LDL Cholesterol Direct 82 mg/dL
[2023-04-20 10:48] LABS: Vitamin D 1,25 (OH)2 Total 29 pg/mL (18-72); Vitamin D2 1,25 (OH)2 20 pg/mL; Vitamin D3 1,25 (OH)2 9 pg/mL
== END 2023-04-15 09:38 | disposition home or self-care (01) ==
LOC: ANHLAB 09:38
PROVIDERS: PCP Emergency Medicine; Visit Provider Emergency Medicine
DX: E78.5 Hyperlipidemia, unspecified (principal); N39.0 Urinary tract infection, site not specified; E11.9 Type 2 diabetes mellitus without complications; E55.9 Vitamin D deficiency, unspecified
CPT/HCPCS: 36415; 80053; 80061; 81003; 82652; 83036

== ENCOUNTER 2023-08-22 07:52 | Emergency (ER) | payer MEDICARE, SELFPAY ==
[2023-08-22 07:58] VITALS: BP 175/92; PULSE 93; RESP 16; TEMP 36.9; O2SAT 99
[2023-08-22 08:32] LABS: Appearance Urine Turbid (Clear); Bacteria Urine 2+ /hpf; Bilirubin Urine Negative (Negative); Blood Urine 2+ (Negative); Color Urine Yellow (Yellow); Glucose Urine UA Negative (Negative); Ketones Urine Trace mg/dL (Negative); Leukocyte Esterase Ur 3+ LEU/UL (Negative); Nitrate Urine Positive (Negative); Non Pathogenic Casts 0-2; Protein Urine 1+ mg/dL (Negative); Specific Grav Ur 1.021 (1.001-1.035); Squamous Epithelial Cell Urine None seen /hpf (Few); WBC Urine >100 /hpf
[2023-08-22 08:34] LABS: Add Urine Microscopic? YES
--- NOTE | 2023-08-22 08:52 | ED.GENADULT ---
HPI - General Adult General Chief complaint: Urogenital-Female Stated complaint: UTI Time Seen by Provider: 08/22/23 08:03 History of Present Illness HPI narrative: Patient is a 73-year-old female who presents ER with dysuria. She was recently diagnosed with a UTI. She finished Macrobid 1 week ago. Her symptoms return. She has been unable to get a hold of her physician to get another antibiotic. No fevers or chills or sweats. Reports urinary frequency and urgency as well as dysuria and lower abdominal cramping. No diarrhea. No blood in her urine. Related Data Home Medications Medication Instructions Recorded Confirmed duloxetine 60 mg capsule,delayed 60 mg PO BID 12/26/19 04/23/23 release (Cymbalta) ergocalciferol (vitamin D2) 1,250 1,250 mcg PO WEEKLY 10/22/22 04/23/23 mcg (50,000 unit) capsule ibuprofen 800 mg tablet See Rx Instructions .Route 10/22/22 04/23/23 .COMPLEX PRN Pain risperidone 1 mg tablet 1 mg QID 10/22/22 04/23/23 metoprolol tartrate 25 mg tablet 25 mg PO Q12H 10/27/22 04/23/23 Allergies Allergy/AdvReac Type Severity Reaction Status Date / Time morphine Allergy Unknown Itching Verified 08/22/23 09:04 Sulfa (Sulfonamide Allergy Unknown Unknown Verified 08/22/23 09:04 Antibiotics) erythromycin base Allergy Hives Verified 08/22/23 09:04 Penicillins Allergy Hives Verified 08/22/23 09:04 Review of Systems Constitutional: Constitutional: Reports no additional constitutional complaints Genitourinary: Genitourinary: Reports nocturia, Reports dysuria, Reports pelvic pain and Denies flank pain PMFSH Past Medical History Medical History Arthritis Chronic obstructive pulmonary disease Chronic pain syndrome Depression with anxiety Diastolic dysfunction Echocardiogram on 10/23/2022: normal LV size and function, estimated EF of 55 to 60%, diastolic dysfunction, moderate left atrial enlargement, and mild pulmonary hypertension. Dysuria Gastroesophageal reflux disease Hyperlipidemia Hypertension Kidney stones Mild pulmonary hypertension Estimated PASP of 46 mmHg on echo in 10/2022. Nicotine use Shingles Type 2 diabetes mellitus Diet-controlled, recent A1c was 6.0. Urinary frequency Vitamin D deficiency Surgical History Surgical History History of appendectomy History of fusion of cervical spine C4 through C6. History of hernia repair History of lithotripsy Family History Family History Sibling Family history of blood dyscrasia Family history of malignant neoplasm Family history of seizure disorder Mother Family history of malignant neoplasm, Onset Age: 85 Family history of lymphoma, Onset Age: 85 Family history of atrial fibrillation, Onset Age: 85 Social History Social History (Updated 04/23/23 @ 10:30 by Abbey [place] MA) Social History: Surrogate medical decision maker: Usha Ashley, granddaughter. Code status: Full code. Smoking packs per day: 0 Smoking cigarettes per day: 0.0 Years smoked: 4 Smoking pack-years: 0.00 Smoking status: Former smoker Tobacco type: cigarettes Second hand tobacco smoke exposure: No Smoking end date: 10/22/22 Alcohol intake: never Substance use: never Substance use type: does not use Lack of Transportation: No Lack of Food: Often True Current Housing: I Have Housing Concerned About Future Housing: No Difficulty Paying Gas/Electric Bills: YES Difficulty Paying for Meds: YES Currently Unemployed: No Education: High School Diploma/GED Difficulty w/ Childcare or Family Care: No Living arrangements: with family Spiritual care concerns: No Agree to blood products: Yes Exam Narrative: GENERAL: Well-appearing, well-nourished, and in no acute distress. HEAD: Normocephalic, atraumatic. CHEST: Hira
== END 2023-08-22 09:15 | disposition home or self-care (01) ==
PROVIDERS: Emergency Provider Emergency Medicine; PCP Emergency Medicine
DX: N39.0 Urinary tract infection, site not specified (principal); M19.90 Unspecified osteoarthritis, unspecified site; J44.9 Chronic obstructive pulmonary disease, unspecified; I10 Essential (primary) hypertension; E78.5 Hyperlipidemia, unspecified; E11.9 Type 2 diabetes mellitus without complications; E55.9 Vitamin D deficiency, unspecified; K21.9 Gastro-esophageal reflux disease without esophagitis; F41.8 Other specified anxiety disorders; Z98.1 Arthrodesis status; Z87.442 Personal history of urinary calculi; Z87.891 Personal history of nicotine dependence
CPT/HCPCS: 81001; 87077; 87086; 87186; 99283

== ENCOUNTER 2023-09-16 08:49 | Observation (INO) | payer MEDICARE, SELFPAY ==
[2023-09-16] VITALS (16 sets, daily range): BP systolic 107–174; BP diastolic 69–91; PULSE 76–101; RESP 14–20; TEMP 36.2–37.1; O2SAT 90–98
--- NOTE | ~2023-09-16 | XR_ITS ---
EXAMINATION: XR retrograde pyelo w/stent LT DATE: 09/16/2023 16:25 INDICATION: Left ureteral stone. TECHNIQUE: 4 intraoperative fluoroscopic views of the abdomen and pelvis were obtained. I was not pre sent. Fluoroscopy exposure time was 25 seconds. COMPARISON: CT abdomen and pelvis 09/16/23. FINDINGS: There is contrast in the renal collecting system. There is mild left hydronephrosis. The fi nal images demonstrate the distal aspect of a left internal ureteral stent in expected position. The proximal aspect is not well visualized. IMPRESSION: 1. Mild left hydronephrosis. Distal aspect of the left internal ureteral stent in expected position. The proximal aspect is not well visualized. Reviewed, dictated and finalized at location E. MECHANIC
--- NOTE | ~2023-09-16 | XR_ITS ---
EXAMINATION: XR chest 2V DATE: 09/16/2023 09:49 INDICATION: Cough and congestion TECHNIQUE: PA and lateral views of the chest are obtained. COMPARISON: 10/27/2022 FINDINGS: There are chronic small pleural effusions. There are minimal airspace opacities of the lung bases. There is no pneumothorax. Cardiomegaly is noted. There is moderate thoracic spondylosis. A morales ture anchor is noted in the left humeral head. There are changes of anterior fusion at the cervicotho racic junction. IMPRESSION: 1. Chronic small pleural effusions. 2. Minimal bibasilar airspace opacity, consistent with atelectasis versus pneumonia. 3. Cardiomegaly. Reviewed, dictated and finalized at location L. ICAL ASSOC IMPRESSION: 1. Chronic small pleural effusions. 2. Minimal bibasilar airspace opacity, consistent with atelectasis versus pneum onia. 3. Cardiomegaly.
--- NOTE | ~2023-09-16 | XR_ITS ---
EXAMINATION: XR abdomen/kub 1V INDICATION: Ureteral stone TECHNIQUE: Supine views of the abdomen were obtained on 2 radiographs. COMPARISON: 09/16/2023 FINDINGS: A left internal ureteral stent has been placed in expected position. The previously describ ed proximal ureteral stone appears to project near the coiled aspect of the stent in the renal pelvis . Multiple bilateral stones of the kidneys are again noted. There are phleboliths of the pelvis. The bowel gas pattern is normal. There is mild osteoarthritis of the hips. Bone islands are noted in the right acetabulum. IMPRESSION: 1. Left internal ureteral stent in expected position with the previously described stone appearing to project to the coiled aspect of the stent in the renal pelvis. 2. Bilateral nephrolithiasis Reviewed, dictated and finalized at location B. HAND ENGINEER IMPRESSION: 1. Left internal ureteral stent in expected position with the previously descri bed stone appearing to project to the coiled aspect of the stent in the renal p maye. 2. Bilateral nephrolithiasis
--- NOTE | ~2023-09-16 | CT_ITS ---
EXAMINATION: CT abdomen pelvis w con INDICATION: Flank pain, recent urinary tract infection TECHNIQUE: Computed tomographic images of the abdomen and pelvis were obtained after the administrati on of 100 cc of Omnipaque 350 intravenous contrast. The dose-length product (DLP) was 631.61 mGy-cm. Automated exposure control and iterative reconstruction technique were employed. COMPARISON: 08/22/2019 FINDINGS: Minimal dependent atelectasis is present in the lung bases. Cardiomegaly is noted. Cysts of the liver measure up to 12 mm in the right hepatic lobe. The spleen, pancreas, gallbladder, and adre nal glands are normal. There is chronic, mild intrahepatic and extrahepatic biliary dilatation. There is a 3.3 cm cyst of the right kidney. There is a 3 mm stone of the proximal left ureter causing mild hydronephrosis. There are multiple nonobstructing stones of both kidneys which measure up to 6 mm on the right and 7 mm on the left. Colonic diverticulosis is present without evidence of diverticulitis . Bone islands are noted in the right acetabulum. No pathologically enlarged abdominal or pelvic lymp h nodes are identified. No free intraperitoneal gas or evidence of bowel obstruction. There is a smal l umbilical hernia containing fat. There is mild lumbar spondylosis. IMPRESSION: 1. 3 mm stone of the proximal left ureter causing mild hydronephrosis. 2. Bilateral nonobstructing nephrolithiasis. Reviewed, dictated and finalized at location L. IC CLEANER
[2023-09-16 09:37] LABS: Appearance Urine Turbid (Clear); Bacteria Urine None Seen /hpf; Bilirubin Urine Negative (Negative); Blood Urine 3+ (Negative); Color Urine Dark Yellow (Yellow); Glucose Urine UA Negative (Negative); Ketones Urine Trace mg/dL (Negative); Leukocyte Esterase Ur 3+ LEU/UL (Negative); Nitrate Urine Negative (Negative); Non Pathogenic Casts 0-2; Protein Urine 1+ mg/dL (Negative); RBC Urine >100 /hpf (0-2); Specific Grav Ur 1.018 (1.001-1.035); Squamous Epithelial Cell Urine None seen /hpf (Few); WBC Urine >100 /hpf
[2023-09-16 09:40] LABS: Add Urine Microscopic? YES
[2023-09-16 10:08] LABS: Influenza A QL RT-PCR Negative (Negative); Influenza B QL RT-PCR Negative (Negative); RSV RNA, RT-PCR Negative (Negative); SARS-CoV-2 RNA PCR Negative (Negative)
--- NOTE | 2023-09-16 11:27 | ED.GENADULT ---
HPI - General Adult General Chief complaint: Unspecified Stated complaint: Uti and SOB Time Seen by Provider: 09/16/23 11:11 History of Present Illness HPI narrative: Patient is a 73-year-old female here with multiple complaints including cough, congestion, dysuria. Patient states that she has been having shortness of breath and a cough since Wednesday. It has been constant, shortness of breath is worse with lying flat. She denies any associated chest pain or leg swelling. She feels as though she is unable to catch her breath. The cough is productive in nature. She denies any fever chills. Additionally this morning she started noticing some dysuria as well as pain in her suprapubic region that radiates to bilateral flanks. She has noted some intermittent hematuria throughout the day today. She has increased urinary frequency as well. Of note patient has been on 4 separate antibiotics for urinary tract infection. She most recently finished Macrobid about 4 days ago. She has had some diarrhea over the last 4-5 days which she is attributing to taking multiple antibiotics. She did note some vaginal itching that began about 3 days ago, denies any vaginal discharge. Related Data Home Medications Medication Instructions Recorded Confirmed duloxetine 60 mg capsule,delayed 60 mg PO BID 12/26/19 09/16/23 release (Cymbalta) ibuprofen 800 mg tablet See Rx Instructions .Route 10/22/22 09/16/23 .COMPLEX PRN Pain risperidone 1 mg tablet 1 mg PO QID 10/22/22 09/16/23 metoprolol tartrate 25 mg tablet 25 mg PO Q12H 10/27/22 09/16/23 furosemide 40 mg tablet 40 mg PO DAILY PRN Edema 09/16/23 09/16/23 hydrocodone 5 mg-acetaminophen 325 1 tablet PO Q4-6H PRN Pain 09/16/23 09/16/23 mg tablet loratadine 10 mg tablet (Claritin) 10 mg PO DAILY 09/16/23 09/16/23 Allergies Allergy/AdvReac Type Severity Reaction Status Date / Time Sulfa (Sulfonamide Allergy Unknown Unknown Verified 09/16/23 15:52 Antibiotics) erythromycin base Allergy Hives Verified 09/16/23 15:52 Penicillins Allergy Hives Verified 09/16/23 15:52 Review of Systems Review of Systems: All systems reviewed & are unremarkable except as noted in HPI and below PMFSH Past Medical History Medical History (Updated 09/16/23 @ 17:07 by Mony Wood PA-C) Arthritis Chronic obstructive pulmonary disease Chronic pain syndrome Depression with anxiety Diastolic dysfunction Echocardiogram on 10/23/2022: normal LV size and function, estimated EF of 55 to 60%, diastolic dysfunction, moderate left atrial enlargement, and mild pulmonary hypertension. Gastroesophageal reflux disease Hyperlipidemia Hypertension Kidney stones Mild pulmonary hypertension Estimated PASP of 46 mmHg on echo in 10/2022. Nicotine use Normocytic anemia Shingles Type 2 diabetes mellitus Diet-controlled, recent A1c was 6.0. Urinary frequency Urinary tract infection Vitamin D deficiency Surgical History Surgical History History of appendectomy History of fusion of cervical spine C4 through C6. History of hernia repair History of lithotripsy Family History Family History Sibling Family history of blood dyscrasia Family history of malignant neoplasm Family history of seizure disorder Mother Family history of malignant neoplasm, Onset Age: 85 Family history of lymphoma, Onset Age: 85 Family history of atrial fibrillation, Onset Age: 85 Social History Social History Social History: Surrogate medical decision maker: Usha Ashley, granddaughter. Code status: Full code. Smoking packs per day: 0 Smoking cigarettes per day: 0.0 Years smoked: 4 Smoking pack-years: 0.00 Smoking status: Former smoker Second hand tobacco smoke exposure: No Alcohol intake: never Substance use: never Subs
[2023-09-16 13:26] LABS: Basophils Absolute Auto 0.1 K/mm3 (0.0-0.1); Basophils Percent Auto 0.6 % (0.2-1.2); Eosinophils Absolute Auto 0.1 K/mm3 (0-0.3); Eosinophils Percent Auto 0.8 % (0-4.4); Hematocrit 38.4 % (37.0-47.0); Hemoglobin 12.2 g/dL (12.0-15.0); Immature Granulocyte Absolute 0.03 K/mm3 (0.00-0.031); Immature Granulocyte Percent A 0.3 % (0-0.5); Lymphocytes Absolute Auto 2.21 K/mm3 (0.9-3.2); Lymphocytes Percent Auto 20.9 % (18.3-44.2); Mean Corpuscular HGB Conc 31.8 g/dl (32-36); Mean Corpuscular Hemoglobin 28.8 pg (26-34); Mean Corpuscular Volume 90.6 fl (80-100); Mean Platelet Volume 9.9 fl (7.4-10.4); Monocytes Absolute Auto 0.7 K/mm3 (0.1-0.6); Neutrophils Absolute Auto 7.5 K/mm3 (1.3-6.7); Neutrophils Percent Auto 70.4 % (45.5-73.1); Platelet Count Result 412 k/mm3 (150-375); Red Blood Count 4.24 M/mm3 (4.2-5.4); Red Cell Distribution Width 14.6 % (11.5-14.5); White Blood Count 10.6 K/mm3 (4.5-10.0)
[2023-09-16 13:39] LABS: Alanine Aminotransferase 14 U/L (6-35); Albumin Level 4.1 g/dL (3.5-5.1); Alkaline Phosphatase 63 U/L (38-126); Anion Gap 8 mmol/L (8-16); Aspartate Amino Transferase 23 U/L (14-36); Bilirubin,Total 0.4 mg/dL (0.2-1.3); Blood Urea Nitrogen 19 mg/dL (7-17); Carbon Dioxide 24 mmol/L (22-30); Chloride 108 mmol/L (98-107); Estimated CRCL calculation 53 ml/min; Estimated Glomerular Filt Rate > 60; Glucose 111 mg/dL (65-110); Sodium 140 mmol/L (137-145)
[2023-09-16 13:49] LABS: NT Pro B Type Natriuretic Pept 928 pg/mL (19.9-100); Troponin I < 0.012 ng/mL (0.000-0.034)
--- NOTE | 2023-09-16 15:29 | WPDURCON ---
Assessment and Plan Assessment and plan (1) Left ureteral calculus: Code(s): N20.1 - Calculus of ureter Status: Acute (2) Bilateral renal stones: Code(s): N20.0 - Calculus of kidney Status: Acute (3) Acute UTI: Code(s): N39.0 - Urinary tract infection, site not specified Status: Acute Assessment and Plan: Cystoscopy with left ureteral stent placement today Admission for hydration and management of urinary tract infection Definitive stone management, likely with ESWL, in the future Urology Consult Note HPI Date Seen: 09/16/23 Requesting Physician: Dr. Hope Primary Care Provider: Diego Mina MD Consult Narrative Narrative: Ruchi Holden is a 73 year old female, previously a known to our practice, with a remote history urolithiasis. She presents the emergency department with an atypical mild to moderate left flank pain, nausea vomiting and poor PO intake for 5 days. She denies fevers chills or gross hematuria. Imaging demonstrates an obstructing 4-5 mm left proximal ureteral stone in addition to several nonobstructing bilateral kidney stones. After discussion with patient we have agreed to proceed with cystoscopy and left ureteral stent placement today followed by admission for management of her apparent urinary tract infection. She will need more definitive stone therapy down the road, likely with ESWL. Review of Systems Review of Systems: All systems reviewed & are unremarkable except as noted in HPI and below PMFSH Past Medical History Medical History Abdominal distension Abdominal pain Arthritis Bilateral pleural effusion Chronic obstructive pulmonary disease Chronic pain syndrome COPD exacerbation Depression with anxiety Diastolic dysfunction Echocardiogram on 10/23/2022: normal LV size and function, estimated EF of 55 to 60%, diastolic dysfunction, moderate left atrial enlargement, and mild pulmonary hypertension. Dyspnea on exertion Dysuria Gastroesophageal reflux disease Hyperlipidemia Hypertension Hypokalemia Kidney stones Mild pulmonary hypertension Estimated PASP of 46 mmHg on echo in 10/2022. Nicotine use Normocytic anemia Pneumonia Shingles Shortness of breath Sinusitis Skin lesion Snoring Tachycardia Type 2 diabetes mellitus Diet-controlled, recent A1c was 6.0. URI with cough and congestion Urinary frequency Urinary tract infection Urinary tract infection Vitamin D deficiency Surgical History Surgical History History of appendectomy History of fusion of cervical spine C4 through C6. History of hernia repair History of lithotripsy Family History Family History Sibling Family history of blood dyscrasia Family history of malignant neoplasm Family history of seizure disorder Mother Family history of malignant neoplasm, Onset Age: 85 Family history of lymphoma, Onset Age: 85 Family history of atrial fibrillation, Onset Age: 85 Social History Social History Social History: Surrogate medical decision maker: Usha Ashley, granddaughter. Code status: Full code. Smoking packs per day: 0 Smoking cigarettes per day: 0.0 Years smoked: 4 Smoking pack-years: 0.00 Smoking status: Former smoker Tobacco type: cigarettes Second hand tobacco smoke exposure: No Smoking end date: 10/22/22 Alcohol intake: never Substance use: never Substance use type: does not use Do You Feel Safe in your Home?: Yes Lack of Transportation: No Lack of Food: Sometimes True Current Housing: I Have Housing Concerned About Future Housing: Decline to Answer Difficulty Paying Gas/Electric Bills: YES Difficulty Paying for Meds: YES Currently Unemployed: No Education: [employer]
--- NOTE | 2023-09-16 15:35 | WPDHPUPDATE1 ---
History and Physical Update Update Date/Time: 09/16/23 15:35 History and Physical has been reviewed, including an updated exam of the patient. There are NO changes in the patient's condition. Risks, benefits, and alternatives have been discussed and questions answered. Patient agrees to proceed with procedure.
--- NOTE | 2023-09-16 15:35 | WPDANESEPPF ---
Anes - Initial Pre Proc Eval Procedure: Operation Date: 09/16/23 15:30 Proposed Procedures p Cystoscopy, Left Ureteral Stent Placement - Dez Shultz MD Date/Time: 09/16/23 15:35 Pre Op Diagnosis: Uti and SOB Patient Data Age: 73 Gender: F Height: 1.55 m Weight: 76.8 kg Last Vital Signs Temp 37.0 C 09/16/23 14:54 Pulse 101 H 09/16/23 14:54 Resp 18 09/16/23 14:54 BP 149/88 H 09/16/23 14:54 Pulse Ox 95 09/16/23 14:54 O2 Del Method Room Air 09/16/23 09:10 Allergies Allergy/AdvReac Type Severity Reaction Status Date / Time morphine Allergy Unknown Itching Verified 09/10/23 10:46 Sulfa (Sulfonamide Allergy Unknown Unknown Verified 09/10/23 10:46 Antibiotics) erythromycin base Allergy Hives Verified 09/10/23 10:46 Penicillins Allergy Hives Verified 09/10/23 10:46 Home Medications Medication Instructions Recorded Confirmed Type duloxetine 60 mg capsule,delayed 60 mg PO BID 12/26/19 09/10/23 History release (Cymbalta) ergocalciferol (vitamin D2) 1,250 1,250 mcg PO WEEKLY 10/22/22 09/10/23 History mcg (50,000 unit) capsule ibuprofen 800 mg tablet See Rx Instructions .Route 10/22/22 09/10/23 History .COMPLEX PRN Pain risperidone 1 mg tablet 1 mg QID 10/22/22 09/10/23 History metoprolol tartrate 25 mg tablet 25 mg PO Q12H 10/27/22 09/10/23 History potassium chloride 20 mEq 40 meq PO DAILY@0800 14 days #28 10/28/22 09/10/23 Rx tablet,extended release (K-Tab) tabs fluticasone propionate 50 See Rx Instructions .Route 12/01/22 09/10/23 Rx mcg/actuation nasal .COMPLEX #48 grams spray,suspension furosemide 40 mg tablet 40 mg PO DAILY #90 tabs 12/04/22 09/10/23 Rx alendronate 70 mg tablet (Fosamax) 70 mg PO WEEKLY #12 tabs 04/23/23 09/10/23 Rx azelastine 137 mcg (0.1 %) nasal 137 mcg (0.137 mL) intranasal Q12H 04/23/23 09/10/23 Rx spray aerosol #30 mL gabapentin 800 mg tablet See Rx Instructions .Route 05/10/23 09/10/23 Rx .COMPLEX #360 tabs simvastatin 20 mg tablet See Rx Instructions .Route 09/07/23 09/10/23 Rx .COMPLEX #90 tabs Laboratory Tests 09/16/23 09/16/23 09:16 13:21 WBC 10.6 H K/mm3 (4.5-10.0) RBC 4.24 M/mm3 (4.2-5.4) Hgb 12.2 g/dL (12.0-15.0) Hct 38.4 % (37.0-47.0) MCV 90.6 fl (80-100) MCH 28.8 pg (26-34) MCHC 31.8 L g/dl (32-36) RDW 14.6 H % (11.5-14.5) Plt Count 412 H D k/mm3 (150-375) MPV 9.9 fl (7.4-10.4) Immature Gran % (Auto) 0.3 % (0-0.5) Neut % (Auto) 70.4 % (45.5-73.1) Lymph % (Auto) 20.9 % (18.3-44.2) [place] % (Auto) 7.0 % (2.6-8.5) Eos % (Auto) 0.8 % (0-4.4) Baso % (Auto) 0.6 % (0.2-1.2) Lymph # (Auto) 2.21 K/mm3 (0.9-3.2) [place] # (Auto) 0.7 H K/mm3 (0.1-0.6) Eos # (Auto) 0.1 K/mm3 (0-0.3) Baso # (Auto) 0.1 K/mm3 (0.0-0.1) Abs Immat Gran (auto) 0.03 K/mm3 (0.00-0.031) Absolute Neuts (auto) 7.5 H K/mm3 (1.3-6.7) Absolute Nucleated RBC 0.0 K/mm3 (0.0-0.012) Nucleated RBC % 0.0 % (0.0-0.2) Sodium 140 mmol/L (137-145) Potassium 4.0 mmol/L (3.4-5.0) Chloride 108 H mmol/L (98-107) Carbon Dioxide 24 mmol/L (22-30) Anion Gap 8 mmol/L (8-16) BUN 19 H mg/dL (7-17) Creatinine 0.80 mg/dL (0.7-1.0) Estim Creat Clear Calc 53 ml/min Estimated GFR > 60 (59 - ) Glucose 111 H mg/dL (65-110) Calcium 10.0 mg/dL (8.4-10.2) Total Bilirubin 0.4 mg/dL (0.2-1.3) AST 23 U/L (14-36) ALT 14 U/L (6-35) Alkaline Phosphatase 63 U/L (38-126) Troponin I < 0.012 ng/mL (0.000-0.034) NT-Pro-B Natriuret Pep 928 H pg/mL (19.9-100) Total Protein 7.0 g/dL (6.3-8.2) Albumin 4.1 g/dL (3.5-5.1) Urine Color Dark yellow (Yellow) Urine Appearance Turbid H (Clear) Urine pH
[2023-09-16] MEDS: LACTATED RINGERS 1,000 ML 30 ML IV CONT (15:40)
--- NOTE | 2023-09-16 16:22 | W.PM.PROC2 ---
Procedure Note - Detailed Date of Procedure 09/16/23 Pre-op Diagnosis Left ureteral stone, bilat. renal stones, UTI Post-op Diagnosis Same Procedure Performed Cystoscopy, left ureteral stent placement Surgeon Dez Shultz MD Anesthesia General Description of Procedure The patient was brought to the operative suite where she was prepped and draped in a routine sterile fashion while in the dorsal lithotomy position. A 19 F rigid cystoscope was placed in her bladder and the bladder was circumferentially inspected. The bladder neck and urethra were endoscopically normal. The bladder mucosa was without hyperemia. There was no intravesical foreign body or neoplasm. There was a single orthotopic ureteral orifice bilaterally. I advanced .035 glidewire into the left renal pelvis under fluoroscopy. A 4.8F variable length ureteral stent was positioned with the proximal coil in the renal pelvis and the distal coil in the bladder. The left collectins system remained outlined by obstructed contrast from prior CT scan. Scopes and wires were removed after emptying the patient's bladder. Drains Yes Packing No Pathology None sent Condition Stable
--- NOTE | 2023-09-16 17:02 | PM.IMHP ---
H&P: HPI History of Present Illness Date/Time: 09/16/23 17:30 Chief Complaint: Cough, congestion, dysuria. Narrative: This is a 73-year-old female smoker with history of kidney stones, chronic obstructive pulmonary disease, diastolic dysfunction, hypertension, hyperlipidemia, GERD, depression, anxiety, and chronic pain syndrome who presented to the emergency department for evaluation of cough, congestion, and dysuria. She has not felt well since Wednesday with nonproductive cough, fatigue, and shortness of breath with exertion and lying supine. This morning she awoke with pain in the suprapubic region radiating to the left flank and dysuria in addition to intermittent hematuria and frequency. She has been on 4 separate antibiotics recently for recurrent urinary tract infections finished a course of Macrobid approximately 4 days ago. She has had several loose stools a day since starting antibiotics. She had a fever last week but that has since resolved. Appetite has been fair but she has not been wanting to eat much. She denies sinus congestion, sore throat, chest pain, pleuritic pain, and vomiting. No sick contacts. In the ED: She was afebrile on arrival. Labs were significant for a WBC count of 10.6, proBNP 928, creatinine 0.80. Urine showed 3+ blood, 3+ leukocyte esterase, and greater than 100 RBC and WBC. She tested negative for influenza, RSV, and COVID. CT of the abdomen and pelvis showed a 3 mm stone of the proximal left ureter causing mild hydronephrosis and bilateral nonobstructing nephrolithiasis. Chest x-ray showed chronic small pleural effusions, minimal bibasilar airspace opacities which could be atelectasis versus pneumonia, and cardiomegaly. She was given a dose of ceftriaxone was taken to the OR per Dr. Shultz and is now status post cystoscopy with left ureteral stent placement. She is being admitted in this setting for further treatment. Review of Systems Review of Systems: Twelve systems were reviewed. No fever chills. She has had some loose stools last several days which she attributes to taking multiple antibiotics. It is not in significant quantities. No history of C diff. she also complains of vaginal itching for the last 3 days but denies vaginal discharge. Except as documented, all other systems were reviewed and are negative. [facility] Past Medical History Medical History (Updated 09/16/23 @ 20:59 by Mony Wood PA-C) Arthritis Chronic obstructive pulmonary disease Chronic pain syndrome Depression with anxiety Diastolic dysfunction Echocardiogram on 10/23/2022: normal LV size and function, estimated EF of 55 to 60%, diastolic dysfunction, moderate left atrial enlargement, and mild pulmonary hypertension. Gastroesophageal reflux disease Hyperlipidemia Hypertension Kidney stones Mild pulmonary hypertension Estimated PASP of 46 mmHg on echo in 10/2022. Nicotine use Normocytic anemia Shingles Type 2 diabetes mellitus Diet-controlled, recent A1c was 6.0. Urinary frequency Urinary tract infection Vitamin D deficiency Surgical History Surgical History History of appendectomy History of fusion of cervical spine C4 through C6. History of hernia repair History of lithotripsy Family History Family History Sibling Family history of blood dyscrasia Family history of malignant neoplasm Family history of seizure disorder Mother Family history of malignant neoplasm, Onset Age: 85 Family history of lymphoma, Onset Age: 85 Family history of atrial fibrillation, Onset Age: 85 Social History Social History Social History: Surrogate medical decision maker: Usha Ashley, granddaughter. Code status: Full code. Smoking packs per day: 0 Smoking cigarettes per day: 0.0 Years smoked: 4 Smoking pack-years: 0.00 Smoking
[2023-09-16] MEDS: fentaNYL CITRATE INJ (*CRX) 100 MCG/2 ML VIAL 25 MCG IV PUSH (17:20)
--- NOTE | 2023-09-16 18:14 | ADMGEN ---
This patient, Ruchi Holden, was admitted to [address] [facility] Surg Room 316-02. Patient/family oriented to hospital policies and general routines including ID bracelet, bed and alarms, visiting hours, pain management, procedures, bathroom and other care routines, personal items, smoking policy, room service/diet, and visiting hours. Information on how to activate the Rapid Response Team has been discussed. Patient/Family are encouraged to report perceived risks to care and to ask questions if they do not understand what they are told or what they should do.
[2023-09-16] MEDS: GABAPENTIN 400 MG CAPSULE 800 MG PO (18:43)
[2023-09-16] MEDS: DULoxetine HCL 60 MG CAPSULE.DR PO (18:43)
[2023-09-16] MEDS: risperiDONE 1 MG TABLET PO (18:43)
[2023-09-16] MEDS: HYDROcodone/acetaminophen (*CRX) 5-325 MG TABLET 1 TAB PO (20:01)
[2023-09-16] MEDS: DOXYCYCLINE HYCLATE 100 MG TABLET PO (21:29)
[2023-09-16] MEDS: METOPROLOL TARTRATE 25 MG TABLET PO (21:29)
[2023-09-16] MEDS: ACETAMINOPHEN 325 MG TABLET 650 MG PO (23:12)
[2023-09-17] MEDS: HYDROcodone/acetaminophen (*CRX) 5-325 MG TABLET 1 TAB PO ×2 (04:56→10:48)
[2023-09-17 06:00] VITALS: BP 122/73; PULSE 69; RESP 16; TEMP 37; O2SAT 91
[2023-09-17 06:28] LABS: Hematocrit 36.3 % (37.0-47.0); Hemoglobin 11.3 g/dL (12.0-15.0); Mean Corpuscular HGB Conc 31.1 g/dl (32-36); Mean Corpuscular Hemoglobin 29.2 pg (26-34); Mean Corpuscular Volume 93.8 fl (80-100); Platelet Count Result 357 k/mm3 (150-375); Red Blood Count 3.87 M/mm3 (4.2-5.4); Red Cell Distribution Width 14.8 % (11.5-14.5)
[2023-09-17 06:59] LABS: Anion Gap 3 mmol/L (8-16); Blood Urea Nitrogen 16 mg/dL (7-17); Calcium 9.3 mg/dL (8.4-10.2); Carbon Dioxide 31 mmol/L (22-30); Chloride 107 mmol/L (98-107); Estimated CRCL calculation 47 ml/min; Estimated Glomerular Filt Rate > 60; Glucose 102 mg/dL (65-110); Magnesium 2.4 mg/dL (1.6-2.3); Potassium 4.1 mmol/L (3.4-5.0); Sodium 141 mmol/L (137-145)
--- NOTE | 2023-09-17 07:28 | WPDANESPN ---
Anes - Prog Note Post-Op Date/Time: 09/17/23 07:28 Vital Signs: Last Vital Signs Temp 37.0 C 09/17/23 06:00 Pulse 69 09/17/23 06:00 Resp 16 09/17/23 06:00 BP 122/73 09/17/23 06:00 Pulse Ox 91 09/17/23 06:00 O2 Del Method Nasal Cannula 09/16/23 20:00 O2 Flow Rate 2 09/16/23 20:00 Pain Score (VAS): 0 I/O: Intake & Output 09/16/23 09/16/23 09/17/23 15:59 23:59 07:59 Intake Total 50 50 250 Output Total 250 300 Balance 50 -200 -50 Laboratory Tests 09/17/23 06:10 09/17/23 06:10 09/16/23 09/16/23 09/16/23 09:16 13:21 23:21 WBC 10.6 H RBC 4.24 Hgb 12.2 Hct 38.4 MCV 90.6 MCH 28.8 MCHC 31.8 L RDW 14.6 H Plt Count 412 H D MPV 9.9 Immature Gran % (Auto) 0.3 Neut % (Auto) 70.4 Lymph % (Auto) 20.9 [place] % (Auto) 7.0 Eos % (Auto) 0.8 Baso % (Auto) 0.6 Lymph # (Auto) 2.21 [place] # (Auto) 0.7 H Eos # (Auto) 0.1 Baso # (Auto) 0.1 Abs Immat Gran (auto) 0.03 Absolute Neuts (auto) 7.5 H Absolute Nucleated RBC 0.0 Nucleated RBC % 0.0 Sodium 140 Potassium 4.0 Chloride 108 H Carbon Dioxide 24 Anion Gap 8 BUN 19 H Creatinine 0.80 Estim Creat Clear Calc 53 Estimated GFR > 60 Glucose 111 H Calcium 10.0 Magnesium Total Bilirubin 0.4 AST 23 ALT 14 Alkaline Phosphatase 63 Troponin I < 0.012 NT-Pro-B Natriuret Pep 928 H Total Protein 7.0 Albumin 4.1 Urine Color Dark yellow Urine Appearance Turbid H Urine pH 6.0 Ur Specific [place] 1.018 Urine Protein 1+ H Urine Glucose (UA) Negative Urine Ketones Trace H Ur Blood (Man) 3+ H Urine Nitrate Negative Urine Bilirubin Negative Urine Urobilinogen 1.0 Leukocyte Esterase Rfl 3+ H Urine RBC >100 H Urine WBC >100 H Ur Squamous Epith Cells None seen Urine Bacteria None seen Urine Casts 0-2 Influenza A (RT-PCR) Negative Influenza B (RT-PCR) Negative Ur L.pneumophila Ag Pending Mycoplasma pneumon IgM Pending RSV (RT-PCR) Negative SARS-CoV-2 RNA (RT-PCR) Negative Urine Pneumococcal Ag Pending 09/17/23 06:10 WBC 8.0 RBC 3.87 L Hgb 11.3 L Hct 36.3 L MCV 93.8 MCH 29.2 MCHC 31.1 L RDW 14.8 H Plt Count 357 MPV 10.0 Immature Gran % (Auto) Neut % (Auto) Lymph % (Auto) [place] % (Auto) Eos % (Auto) Baso % (Auto) Lymph # (Auto) [place] # (Auto) Eos # (Auto) Baso # (Auto) Abs Immat Gran (auto) Absolute Neuts (auto) Absolute Nucleated RBC Nucleated RBC % Sodium 141 Potassium 4.1 Chloride 107 Carbon Dioxide 31 H Anion Gap 3 L BUN 16 Creatinine 0.90 Estim Creat Clear Calc 47 Estimated GFR > 60 Glucose 102 Calcium 9.3 Magnesium 2.4 H Total Bilirubin AST ALT Alkaline Phosphatase Troponin I NT-Pro-B Natriuret Pep Total Protein Albumin Urine Color Urine Appearance Urine pH Ur Specific [place] Urine Protein Urine Glucose (UA) Urine Ketones Ur Blood (Man) Urine Nitrate Urine Bilirubin Urine Urobilinogen Leukocyte Esterase Rfl Urine RBC Urine WBC Ur Squamous Epith Cells Urine Bacteria Urine Casts Influenza A (RT-PCR) Influenza B (RT-PCR) Ur L.pneumophila Ag Mycoplasma pneumon IgM RSV (RT-PCR) SARS-CoV-2 RNA (RT-PCR) Urine Pneumococcal Ag Patient Feedback: Patient satisfied with anesthetic care.
--- NOTE | 2023-09-17 07:32 | WPDUROPN2 ---
Progress Note: A&P Assessment and Plan (1) Left ureteral calculus: Code(s): N20.1 - Calculus of ureter Status: Acute (2) Bilateral renal stones: Code(s): N20.0 - Calculus of kidney Status: Acute Assessment and Plan: Will arrange left ESWL approx. 2-weeks [id number] for ureteral/renal stones - after treatment for UTI Subjective Subjective Date/Time Seen: 09/17/23 07:32 Interval history: Comfortable, tolerating diet Review of Systems Review of Systems: All systems reviewed & are unremarkable except as noted in HPI and below Exam Const: General: no acute distress Resp: Effort & Inspection: normal respiratory effort GI: Inspection: non-distended GI Palp: No abdominal tenderness and No Guarding due to palpation present (GI) Auscultation: normal bowel sounds Objective Data Vital Signs Vital Signs: Vital Signs - 24 hr 09/16/23 09:10 09/16/23 14:54 09/16/23 15:40 Temperature 98.8 F 98.6 F 98.0 F Pulse Rate 95 101 H 80 Respiratory Rate 16 18 16 Blood Pressure 107/84 149/88 H 174/91 H Pulse Oximetry 98 95 96 Oxygen Delivery Room Air Room Air Oxygen Flow Rate 09/16/23 16:26 09/16/23 16:40 09/16/23 16:55 Temperature 98.2 F Pulse Rate 95 92 83 Respiratory Rate 20 18 16 Blood Pressure 161/82 H 136/87 137/86 Pulse Oximetry 98 98 98 Oxygen Delivery Simple Face Mask Simple Face Mask Room Air Oxygen Flow Rate 8 8 09/16/23 17:10 09/16/23 17:15 09/16/23 17:25 Temperature 97.7 F Pulse Rate 85 80 85 Respiratory Rate 17 16 14 Blood Pressure 134/73 131/82 132/78 Pulse Oximetry 90 94 95 Oxygen Delivery Room Air Nasal Cannula Nasal Cannula Oxygen Flow Rate 2 2 09/16/23 17:35 09/16/23 18:09 09/16/23 17:55 Temperature 97.5 F L 97.4 F L Pulse Rate 83 80 Respiratory Rate 14 17 Blood Pressure 140/71 155/69 H Pulse Oximetry 95 97 97 Oxygen Delivery Nasal Cannula Nasal Cannula Oxygen Flow Rate 2 2 09/16/23 18:10 09/16/23 18:40 09/16/23 19:10 Temperature 97.2 F L 97.2 F L Pulse Rate 76 78 Respiratory Rate 17 17 Blood Pressure 141/76 H 146/79 H Pulse Oximetry 96 96 Oxygen Delivery Room Air Oxygen Flow Rate 09/16/23 22:00 09/16/23 20:00 09/17/23 06:00 Temperature 98.2 F 98.6 F Pulse Rate 90 69 Respiratory Rate 16 16 Blood Pressure 126/69 122/73 Pulse Oximetry 93 95 91 Oxygen Delivery Nasal Cannula Oxygen Flow Rate 2 Intake/Output Intake/Output: Intake & Output 09/14/23 09/15/23 09/16/23 09/17/23 23:59 23:59 23:59 23:59 Intake Total 100 250 Output Total 250 300 Balance -150 -50 Meds/Results Medications: Active Medications Generic Name Dose Route Start Last Admin Trade Name Freq PRN Reason Stop Dose Admin Acetaminophen 650 mg 09/16/23 21:00 09/16/23 23:12 Acetaminophen 325 Mg Tablet PO 650 mg Q6H PRN Administration Mild Pain (1-3) or Fever Hydrocodone Bitart/Acetaminophen 1 tab 09/16/23 21:00 09/17/23 04:56 Hydrocodone/Acetaminophen (*Crx) 5-325 Mg Tablet PO 1 tab Q6H PRN Administration Pain Rated 4-6 Doxycycline Hyclate 100 mg 09/16/23 21:10 09/16/23 21:29 Doxycycline Hyclate 100 Mg Tablet PO 100 mg Q12HR ROSE MARY Administration Duloxetine HCl 60 mg 09/16/23 17:37 09/16/23 18:43 Duloxetine Hcl 60 Mg Capsule.Dr PO 60 mg BID ROSE MARY Administration Furosemide 40 mg 09/16/23 21:06 Furosemide 40 Mg Tablet PO DAILY PRN Edema Gabapentin 800 mg 09/16/23 17:37 09/16/23 20:06 Gabapentin 400 Mg Capsule PO Not Given QID ROSE MARY Ceftriaxone Sodium 1 gm in 50 mls @ 100 mls/hr 09/17/23 14:00 Rocephin 1 Gm/Ns 50 Ml IVPB Q24H ROSE MARY Loratadine 10 mg 09/17/23 09:00 Loratadine 10 Mg Tablet PO DAILY ROSE MARY Metoprolol Tartrate 25 mg 09/16/23 21:10 09/16/23 21:29 Metoprolol Tartrate 25 Mg Tablet PO 25 mg Q12HR ROSE MARY Administration Risperidone 1 mg 09/16/23 17:37 09/16/23 20:06 Risperidone 1 Mg Tablet PO N
--- NOTE | 2023-09-17 07:43 | W.PM.PROC2 ---
Procedure Note - Detailed Date of Procedure 09/17/23 Pre-op Diagnosis Left renal calculi Post-op Diagnosis Same Procedure Performed Left ESWL Surgeon Dez Shultz MD Anesthesia General Description of Procedure The patient was brought to the operative suite where she was placed in the supine position on the Dornier lithotripsy table. The focal point of the lithotripter was placed at a two left renal calculi, each measuring approx. 4mm. A total of 2500 shocks were delivered at a power setting of 3 - splitting the shocks between the two stones. There appeared to be good fragmentation of the stone. The patient tolerated the procedure well and was taken to the recovery room in good condition. Urine Output 300 Drains No Packing No Pathology None sent Complications No immediate complications
[2023-09-17 08:56] VITALS: BP 141/79; PULSE 66; O2SAT 93
[2023-09-17] MEDS: GABAPENTIN 400 MG CAPSULE 800 MG PO ×2 (09:03→12:59)
[2023-09-17] MEDS: DOXYCYCLINE HYCLATE 100 MG TABLET PO (09:03)
[2023-09-17] MEDS: DULoxetine HCL 60 MG CAPSULE.DR PO (09:03)
[2023-09-17] MEDS: LORATADINE 10 MG TABLET PO (09:03)
[2023-09-17 09:04] VITALS: PULSE 66
[2023-09-17] MEDS: METOPROLOL TARTRATE 25 MG TABLET PO (09:04)
[2023-09-17] MEDS: risperiDONE 1 MG TABLET PO ×2 (09:04→12:59)
[2023-09-17] MEDS: SIMVASTATIN 20 MG TABLET BY MOUTH (09:04)
[2023-09-17] MEDS: ACETAMINOPHEN 325 MG TABLET 650 MG PO (09:06)
[2023-09-17 14:00] VITALS: BP 147/74; PULSE 71; RESP 20; TEMP 36.2; O2SAT 92
--- NOTE | 2023-09-17 14:31 | PM.DS ---
DS: Admitting Diagnosis Discharge Date 09/17/2023 Admitting Diagnosis Calculus LT ureter with hydronephrosis DS: Discharge Diagnosis Discharge Diagnosis (1) Left ureteral calculus: Code(s): N20.1 - Calculus of ureter Status: Acute (2) Hydronephrosis: Code(s): N13.30 - Unspecified hydronephrosis Status: Acute (3) Abnormal urinalysis: Code(s): R82.90 - Unspecified abnormal findings in urine Status: Acute (4) Bilateral renal stones: Code(s): N20.0 - Calculus of kidney Status: Acute (5) Abnormal chest x-ray: Code(s): R93.89 - Abnormal findings on diagnostic imaging of other specified body structures Status: Acute (6) Chronic obstructive pulmonary disease: Code(s): J44.9 - Chronic obstructive pulmonary disease, unspecified Status: Chronic (7) Diastolic dysfunction: Code(s): I51.89 - Other ill-defined heart diseases Status: Acute Plan PLAN The patient presented to the emergency department for evaluation of cough, congestion, and dysuria as detailed in HPI. Labs, imaging, EKG, and all reports were personally reviewed. She reports ongoing issues with urinary tract infections despite being on [address] of the abdomen and pelvis showed a 3 mm stone in the proximal left ureter causing mild hydronephrosis and bilateral nonobstructing nephrolithiasis. This may very well be the cause of her recurrent urinary tract infections. She was taken to the OR per Dr. Shultz and is status post cystoscopy with left ureteral stent placement. She has been started on ceftriaxone pending urine culture. She tested negative for influenza, RSV, and COVID and her congestion and cough may be related to another virus not tested however chest x-ray shows minimal bibasilar airspace opacities which could be atelectasis or pneumonia and thus doxycycline has been added to her antibiotics. She appears euvolemic and CHF is unlikely. She reports having several loose stools the past couple of days which may be antibiotic related thus will check C diff though that seems less likely. Diflucan x1 ordered given reports of vaginal itching. Attempt sputum for culture. Avoid over-hydration. Vital signs have been stable. No acute issues with regards to her COPD. Her medications will be reviewed and resumed as appropriate. Findings and treatment plan were discussed with the patient. Questions were solicited and answered to satisfaction. The patient's medical management will be taken over by the hospitalist team in a.m. DS: Summary Hospital Course Reason for hospitalization: Calculus LT ureter with hydronephrosis Hospital Course: This is a 73-year-old female smoker with history of kidney stones, chronic obstructive pulmonary disease, diastolic dysfunction, hypertension, hyperlipidemia, GERD, depression, anxiety, and chronic pain syndrome who presented to the emergency department for evaluation of cough, congestion, and dysuria. She has not felt well since Wednesday with nonproductive cough, fatigue, and shortness of breath with exertion and lying supine. This morning she awoke with pain in the suprapubic region radiating to the left flank and dysuria in addition to intermittent hematuria and frequency. She has been on 4 separate antibiotics recently for recurrent urinary tract infections finished a course of Macrobid approximately 4 days ago. She has had several loose stools a day since starting antibiotics. She had a fever last week but that has since resolved. Appetite has been fair but she has not been wanting to eat much. She denies sinus congestion, sore throat, chest pain, pleuritic pain, and vomiting. No sick contacts. In the ED: She was afebrile on arrival. Labs were significant for a WBC count of 10.6, proBNP 928, creatinine 0.80. Urine showed 3+ blood, 3+ leukocyte esterase, and greater than 100 RBC and WBC. She tested negative for influenza, RSV, and COVID. CT of the abdomen and pel
[2023-09-20 03:09] LABS: Pneumococcal Antigen Urine Not Detected (Not Detected)
[2023-09-21 05:34] LABS: Legionella pneumophila Ag Ur Not Detected (Not Detected)
[2023-09-21 12:58] LABS: Mycoplasma IgM Antibody Titer 15 U/mL (<770)
== END 2023-09-17 15:35 | disposition home or self-care (01) ==
LOC: ANHED 16:23 → ANH3MEDSUR 09-17 13:07
PROVIDERS: Physician Assistant; Urology; Admitting Provider Family Medicine; Emergency Provider Student in an Organized Health Care Education/Training Program; PCP Emergency Medicine; Visit Provider Internal Medicine
PROC: (CPT 52352; principal; 2023-09-16 15:30)
DX: N13.2 Hydronephrosis with renal and ureteral calculous obstruction (principal); N39.0 Urinary tract infection, site not specified; B96.20 Unspecified Escherichia coli [E. coli] as the cause of diseases classified elsewhere; J44.9 Chronic obstructive pulmonary disease, unspecified; F41.8 Other specified anxiety disorders; I11.9 Hypertensive heart disease without heart failure; I27.20 Pulmonary hypertension, unspecified; R06.02 Shortness of breath; G89.4 Chronic pain syndrome; Z20.822 Contact with and (suspected) exposure to COVID-19; K21.9 Gastro-esophageal reflux disease without esophagitis; E78.5 Hyperlipidemia, unspecified; E11.9 Type 2 diabetes mellitus without complications; Z87.891 Personal history of nicotine dependence; Z79.1 Long term (current) use of non-steroidal anti-inflammatories (NSAID); Z79.891 Long term (current) use of opiate analgesic; Z79.899 Other long term (current) drug therapy
CPT/HCPCS: 52332; 50590; 36415; 71046; 74018; 74177; 74420; 80048; 80053; 81001; 83735; 83880; 84484; 85025; 85027; 86738; 87077; 87086; 87088; 87186; 87449; 87637; 87899; 96365; 96375; 99285; A9270; C1769; C2617; G0378; J0330; J0696; J2405; J2704; J3010; J7120; Q9967

== ENCOUNTER 2023-09-27 10:20 | Outpatient (CLI) | payer MEDICARE, SELFPAY ==
[2023-09-27 11:27] LABS: Prothrombin Time 13.1 Seconds (11.1-14.7)
[2023-09-27 11:28] LABS: Partial Thromboplastin Time 28.2 Seconds (22.3-36.8)
== END 2023-09-27 10:21 | disposition home or self-care (01) ==
LOC: ANHSURGERY 10:24
PROVIDERS: PCP Emergency Medicine; Visit Provider Urology
DX: N20.1 Calculus of ureter (principal); Z01.818 Encounter for other preprocedural examination
CPT/HCPCS: 36415; 85610; 85730; 87086

== ENCOUNTER 2023-10-01 01:34 | Day surgery (SDC) | payer MEDICARE, SELFPAY ==
--- NOTE | 2023-09-20 14:33 | PC.NURSE ---
PRE-OP INSTRUCTIONS, PLEASE READ CAREFULLY Report to the Outpatient Waiting Room, entrance under the green pavilion located off [facility], at time _0830_ on date _10/01/23_. Planned Procedure Time: _1030_. Time changes happen often and if your time is changed the preop area will call you the afternoon before. - You and your visitor will be asked to self-screen and do not enter if you have any COVID symptoms. - A mask is optional within the hospital at this time. Patients may have clear liquids (water, carbonated beverages, clear teas, apple juice) until 3 hours prior to surgery (0730 AM) with a maximum of 20 ounces. - No food from midnight until time of surgery Take the following medications with a SIP of water the morning of surgery: _DULOXETINE, GABAPENTIN, METOPROLOL, RISPERIDONE, & PAIN MED IF NEEDED_ DO NOT STOP ANY OF YOUR OTHER PRESCRIPTION MEDICATIONS PRIOR TO SURGERY ?EXCEPT THE FOLLOWING Medications to discontinue per physician ___NONE___, Date to take last dose Please no make-up, nail japanese, hairspray, perfume, deodorant, or body powder the day of surgery. No jewelry (including any body piercings) or valuables the day of surgery, leave them at home. Please take a shower or bath the night before, or the morning of, surgery with an antibacterial soap. Wear comfortable, loose fitting clothing. - Jewelry must be removed prior to entering the operating room. Rings and piercings that are not removed may be cut off. - The hospital will not accept responsibility for valuables. - Please leave all valuables, including medications, at home the day of surgery. If you are going home after surgery, a licensed armor reconnaissance vehicle driver must drive you home. - NO public transportation without another adult if you receive anesthesia. - We recommend that an adult stay with you for 24 hours following discharge. - We also recommend that you do not drive, make important decision, drink alcoholic beverages, or take any drugs that were not prescribed by your health care provider for at least 24 hours after your discharge time. Follow any additional instructions given to you from your surgeon. If you or anyone in your household have experienced Covid symptoms in the past week, please notify your surgeon or the nurse liaison at the phone number below for possible testing. Telephone instructions given to _PATIENT_and asked if any additional questions and then verbalized understanding. Patient advised to call surgeon office or pre surgery nurse liaison [phone] if any additional questions.
[2023-09-20 14:36] VITALS: BMI 30.1
--- NOTE | 2023-09-20 14:38 | PC.NURSE ---
PRE-OP INSTRUCTIONS, PLEASE READ CAREFULLY Report to the Outpatient Waiting Room, entrance under the green pavilion located off [facility], at time _0830_ on date _10/01/23_. Planned Procedure Time: _1030_. Time changes happen often and if your time is changed the preop area will call you the afternoon before. - You and your visitor will be asked to self-screen and do not enter if you have any COVID symptoms. - A mask is optional within the hospital at this time. Patients may have clear liquids (water, carbonated beverages, clear teas, apple juice) until 3 hours prior to surgery with a maximum of 20 ounces. - No food from midnight until time of surgery Take the following medications with a SIP of water the morning of surgery: _DULOXETINE, GABAPENTIN, METOPROLOL, RISPERIDONE, & PAIN MED IF NEEDED_ DO NOT STOP ANY OF YOUR OTHER PRESCRIPTION MEDICATIONS PRIOR TO SURGERY ?EXCEPT THE FOLLOWING Medications to discontinue - _IBUPROFEN PER DR. DENNISON'S INSTRUCTIONS - 1 WEEK PRIOR TO SURGERY, Date to take last dose 09/23/23_ Please no make-up, nail british virgin islander, hairspray, perfume, deodorant, or body powder the day of surgery. No jewelry (including any body piercings) or valuables the day of surgery, leave them at home. Please take a shower or bath the night before, or the morning of, surgery with an antibacterial soap. Wear comfortable, loose fitting clothing. - Jewelry must be removed prior to entering the operating room. Rings and piercings that are not removed may be cut off. - The hospital will not accept responsibility for valuables. - Please leave all valuables, including medications, at home the day of surgery. If you are going home after surgery, a licensed driver/refuse collector must drive you home. - NO public transportation without another adult if you receive anesthesia. - We recommend that an adult stay with you for 24 hours following discharge. - We also recommend that you do not drive, make important decision, drink alcoholic beverages, or take any drugs that were not prescribed by your health care provider for at least 24 hours after your discharge time. Follow any additional instructions given to you from your surgeon. If you or anyone in your household have experienced Covid symptoms in the past week, please notify your surgeon or the nurse liaison at the phone number below for possible testing. Telephone instructions given to _PATIENT_and asked if any additional questions and then verbalized understanding. Patient advised to call surgeon office or pre surgery nurse liaison [phone] if any additional questions.
--- NOTE | 2023-09-23 10:40 | PM.HPGS ---
History of Present Illness History of Present Illness Consent: Risks, benefits, and alternatives have been discussed and questions answered. Patient agrees to proceed with procedure. Chief complaint: left renal stones Narrative: Ruchi Meneses is a 73 year old female recent presented to [facility] with an obstructing painful left proximal ureteral stone with possible urinary tract infection. Additionally, she had bilateral renal stones suggestive of possible underlying metabolic pathology. A left ureteral stent was placed she now presents for definitive left ESWL for her proximal ureteral stone. She is aware that she will likely need metabolic evaluation and additional procedures in the future to render her stone free. She is aware the risk of this procedure including, but not limited to, adverse cardiopulmonary events, hematuria, perinephric hematoma and, again, need for additional procedures. Review of Systems Cardiovascular: Cardiovascular: Denies chest pain, Denies lightheadedness, Denies palpitations and Denies dyspnea Respiratory: Respiratory: Denies dyspnea Gastrointestinal: Gastrointestinal: Denies diarrhea, Denies nausea and Denies vomiting Genitourinary: Genitourinary: Denies hematuria and Denies dysuria Endocrine: Endocrine: Denies palpitations [facility] Past Medical History Medical History (Updated 09/16/23 @ 20:59 by Mony Wood PA-C) Arthritis Chronic obstructive pulmonary disease Chronic pain syndrome Depression with anxiety Diastolic dysfunction Echocardiogram on 10/23/2022: normal LV size and function, estimated EF of 55 to 60%, diastolic dysfunction, moderate left atrial enlargement, and mild pulmonary hypertension. Gastroesophageal reflux disease Hyperlipidemia Hypertension Kidney stones Mild pulmonary hypertension Estimated PASP of 46 mmHg on echo in 10/2022. Nicotine use Normocytic anemia Shingles Type 2 diabetes mellitus Diet-controlled, recent A1c was 6.0. Urinary frequency Urinary tract infection Vitamin D deficiency Surgical History Surgical History History of appendectomy History of fusion of cervical spine C4 through C6. History of hernia repair History of lithotripsy Family History Family History Sibling Family history of blood dyscrasia Family history of malignant neoplasm Family history of seizure disorder Mother Family history of malignant neoplasm, Onset Age: 85 Family history of lymphoma, Onset Age: 85 Family history of atrial fibrillation, Onset Age: 85 Social History Social History Social History: Surrogate medical decision maker: Usha Ashley, granddaughter. Code status: Full code. Smoking packs per day: 0 Smoking cigarettes per day: 0.0 Years smoked: 16 Smoking pack-years: 0.00 Smoking status: Current every day smoker Tobacco type: cigarettes Second hand tobacco smoke exposure: Yes Alcohol intake: current Substance use: never Substance use type: does not use Do You Feel Safe in your Home?: Yes Lack of Transportation: No Lack of Food: Sometimes True Current Housing: I Have Housing Concerned About Future Housing: Decline to Answer Difficulty Paying Gas/Electric Bills: YES Difficulty Paying for Meds: YES Currently Unemployed: No Education: High School Diploma/GED Difficulty w/ Childcare or Family Care: No Living arrangements: alone Spiritual care concerns: No Agree to blood products: Yes Meds Home Medications and Allergies Home Medications Medication Instructions Recorded Confirmed Type duloxetine 60 mg capsule,delayed 60 mg PO BID 12/26/19 09/20/23 History release (Cymbalta) ibuprofen 800 mg tablet See Rx Instructions .Route 10/22/22 09/20/23 History .COMPLEX PRN Pain risperidone 1 mg tab
[2023-10-01] VITALS (8 sets, daily range): BP systolic 120–164; BP diastolic 70–95; PULSE 81–97; RESP 12–20; TEMP 36.4; O2SAT 92–100
--- NOTE | ~2023-10-01 | XR_ITS ---
Supine and upright views of the abdomen Clinical history: Lithotripsy COMPARISON: 324 Findings: Bowel gas pattern is nonspecific. No evidence for obstruction or free air. Left ureteral st ent in place. Probable bilateral renal stones are unchanged. Osseous structures are intact. Impression: Left ureteral stent. Probable bilateral renal stones. Reviewed, dictated and finalized at [facility]. Impression: Left ureteral stent. Probable bilateral renal stones.
--- NOTE | 2023-10-01 06:18 | WPDHPUPDATE1 ---
History and Physical Update Update Date/Time: 10/01/23 06:18 History and Physical has been reviewed, including an updated exam of the patient. There are NO changes in the patient's condition. Risks, benefits, and alternatives have been discussed and questions answered. Patient agrees to proceed with procedure.
[2023-10-01] MEDS: LACTATED RINGERS 1,000 ML 30 ML IV CONT (09:00)
--- NOTE | 2023-10-01 09:28 | WPDANESEPPF ---
Anes - Initial Pre Proc Eval Procedure: Operation Date: 10/01/23 10:30 Proposed Procedures p Left Extracorporeal Shock Wave Lithotripsy - Dez Shultz MD Date/Time: 10/01/23 09:28 Surgeon: Dez Shultz MD Pre Op Diagnosis: left renal stones Patient Data Age: 73 Gender: F Height: 1.55 m Weight: 72.27 kg Allergies Allergy/AdvReac Type Severity Reaction Status Date / Time Sulfa (Sulfonamide Allergy Unknown Nausea and Verified 09/20/23 14:24 Antibiotics) Vomiting erythromycin base Allergy Hives Verified 09/20/23 14:24 Penicillins Allergy Hives Verified 09/20/23 14:24 Home Medications Medication Instructions Recorded Confirmed Type duloxetine 60 mg capsule,delayed 60 mg PO BID 12/26/19 09/20/23 History release (Cymbalta) ibuprofen 800 mg tablet See Rx Instructions .Route 10/22/22 09/20/23 History .COMPLEX PRN Pain risperidone 1 mg tablet 1 mg PO QID 10/22/22 09/20/23 History metoprolol tartrate 25 mg tablet 25 mg PO BID 10/27/22 09/20/23 History gabapentin 800 mg tablet See Rx Instructions .Route 05/10/23 09/20/23 Rx .COMPLEX #360 tabs simvastatin 20 mg tablet See Rx Instructions .Route 09/07/23 09/20/23 Rx .COMPLEX #90 tabs furosemide 40 mg tablet 40 mg PO DAILY PRN Edema 09/16/23 09/20/23 History hydrocodone 5 mg-acetaminophen 325 1 tablet PO Q4-6H PRN Pain 09/16/23 09/20/23 History mg tablet loratadine 10 mg tablet (Claritin) 10 mg PO DAILY 09/16/23 09/20/23 History cefdinir 300 mg capsule 300 mg PO Q12H #24 caps 09/17/23 09/20/23 Rx doxycycline hyclate 100 mg tablet 100 mg PO Q12HR #12 tabs 09/17/23 09/20/23 Rx cholecalciferol (vitamin D3) 50 50 mcg PO DAILY 09/20/23 09/20/23 History mcg (2,000 unit) capsule Patient hx anesthesia problems: none Family hx anesthesia problems: none Results Review: All pre-operative results and documents have been reviewed as part of the pre-operative evaluation. [facility] Past Medical History Medical History Arthritis Chronic obstructive pulmonary disease Chronic pain syndrome Depression with anxiety Diastolic dysfunction Echocardiogram on 10/23/2022: normal LV size and function, estimated EF of 55 to 60%, diastolic dysfunction, moderate left atrial enlargement, and mild pulmonary hypertension. Gastroesophageal reflux disease Hyperlipidemia Hypertension Kidney stones Mild pulmonary hypertension Estimated PASP of 46 mmHg on echo in 10/2022. Nicotine use Normocytic anemia Shingles Type 2 diabetes mellitus Diet-controlled, recent A1c was 6.0. Urinary frequency Urinary tract infection Vitamin D deficiency Surgical History Surgical History History of appendectomy History of fusion of cervical spine C4 through C6. History of hernia repair History of lithotripsy Family History Family History Sibling Family history of blood dyscrasia Family history of malignant neoplasm Family history of seizure disorder Mother Family history of malignant neoplasm, Onset Age: 85 Family history of lymphoma, Onset Age: 85 Family history of atrial fibrillation, Onset Age: 85 Social History Social History Social History: Surrogate medical decision maker: Usha Ashley, granddaughter. Code status: Full code. Smoking packs per day: 0 Smoking cigarettes per day: 0.0 Years smoked: 16 Smoking pack-years: 0.00 Smoking status: Current every day smoker Tobacco type: cigarettes Second hand tobacco smoke exposure: Yes Alcohol intake: current Substance use: never Substance use type: does not use Do You Feel Safe in your Home?: Yes Lack of Transportation: No Lack of Food: Sometimes True Current Housing: I Have Housing Concerned About Future Housing: Decline to Answer Difficulty Moraima
[2023-10-01] MEDS: ceFAZolin 2 GM/D5W 50 ML 2 GM/50 ML BAG IVPB (10:43)
--- NOTE | 2023-10-01 10:56 | W.PM.PROC2 ---
Procedure Note - Detailed Date of Procedure 10/01/23 Pre-op Diagnosis Left renal stones Post-op Diagnosis Same Procedure Performed Left ESWL Surgeon Dez Shultz MD Anesthesia General Description of Procedure The patient was brought to the operative suite where she was placed in the supine position on the Dornier lithotripsy table. The focal point of the lithotripter was placed at a collection of stones in left lower pole calyx. the stones previously seen around her left proximal stent coil were no longer present. A total of 2500 shocks were delivered at a power setting of 4. There appeared to be good fragmentation of the stone. The patient tolerated the procedure well and was taken to the recovery room in good condition. Drains No Packing No Pathology None sent Complications No immediate complications Condition Stable
[2023-10-01] MEDS: fentaNYL CITRATE INJ (*CRX) 100 MCG/2 ML VIAL 25 MCG IV PUSH ×6 (11:41→12:05)
--- NOTE | 2023-10-01 14:01 | SUR.PHASEII ---
1300 pt's insurance [employer] making multiple attempts to provide med car to pt's discharge. awaiting confirmation for ride. 1345 med car confirmation given. awaiting for arrival
== END 2023-10-01 13:48 | disposition home or self-care (01) ==
PROVIDERS: PCP Emergency Medicine; Visit Provider Urology
PROC: (CPT 50590; principal; 2023-10-01 10:30)
DX: N20.0 Calculus of kidney (principal); J44.9 Chronic obstructive pulmonary disease, unspecified; I11.9 Hypertensive heart disease without heart failure; F41.8 Other specified anxiety disorders; E78.5 Hyperlipidemia, unspecified; E11.9 Type 2 diabetes mellitus without complications; E55.9 Vitamin D deficiency, unspecified; D64.9 Anemia, unspecified; K21.9 Gastro-esophageal reflux disease without esophagitis; G89.4 Chronic pain syndrome; Z79.891 Long term (current) use of opiate analgesic; Z98.1 Arthrodesis status; F17.210 Nicotine dependence, cigarettes, uncomplicated; E66.9 Obesity, unspecified; Z68.30 Body mass index [BMI] 30.0-30.9, adult
CPT/HCPCS: 50590; 36415; 74018; 85610; 85730; 87086; J0690; J2405; J2704; J3010; J7120

== ENCOUNTER 2023-10-12 10:57 | Outpatient (CLI) | payer MEDICARE, SELFPAY ==
--- NOTE | ~2023-10-12 | XR_ITS ---
XR abdomen/kub 1V DATE: 10/12/2023 11:16 INDICATION: Lithotripsy TECHNIQUE: 2 supine AP views of the abdomen COMPARISON: 10/01/2023 KUB 09/16/2023 CT abdomen pelvis FINDINGS: The left internal urinary stent has been removed since 10/01/2023. Bilateral renal calcifications are demonstrated to better advantage on 09/16/2023 KUB. No obvious urete ral calcification is noted on the current radiograph. Bilateral calcified pelvic phleboliths. Moderately prominent amount fecal material within the rectum and colon. No bowel obstruction is evide nt. The psoas shadows are intact. No visceromegaly is noted. The lung bases appear clear. Osteopenia. Osteosclerotic lesions of the right acetabulum, attributed to bone islands on 09/16/2023 CT examination . IMPRESSION: Removal of left internal urinary stent since 10/01/2023 Bilateral nephrolithiasis Reviewed, dictated and finalized at [facility]. Reviewed, dictated and finalized at [facility].
== END 2023-10-12 10:58 | disposition home or self-care (01) ==
LOC: ANHIMG 10:59
PROVIDERS: PCP Emergency Medicine; Visit Provider Urology
DX: N20.0 Calculus of kidney (principal)
CPT/HCPCS: 74018

== ENCOUNTER 2023-12-22 07:21 | Outpatient (CLI) | payer MEDICARE, SELFPAY ==
[2023-12-22 07:57] LABS: Alanine Aminotransferase 10 U/L (6-35); Alkaline Phosphatase 45 U/L (38-126); Anion Gap 5 mmol/L (4-12); Aspartate Amino Transferase 19 U/L (14-36); Bilirubin,Total 0.4 mg/dL (0.2-1.3); Blood Urea Nitrogen 14 mg/dL (7-17); Calcium 9.8 mg/dL (8.4-10.2); Carbon Dioxide 26 mmol/L (22-30); Chloride 111 mmol/L (98-107); Cholesterol 152 mg/dL (0-200); Estimated Glomerular Filt Rate > 60; Glucose 76 mg/dL (65-110); HDL Direct 59 mg/dL; Potassium 3.7 mmol/L (3.4-5.0); Sodium 142 mmol/L (137-145); Triglycerides 128 mg/dL (<150)
[2023-12-22 08:07] LABS: Hemoglobin A1C 5.8 % (<5.7)
[2023-12-22 08:09] LABS: LDL Cholesterol Direct 73 mg/dL
[2023-12-22 08:17] LABS: Vitamin D 25 Hydroxy 36.9 ng/mL
[2023-12-22 08:49] LABS: Creatinine Urine 216.6 mg/dL
[2023-12-22 08:54] LABS: MALB Creatinine Ratio 31.3 mg/g (0-30); Microalbumin Urine Random 67.7 mg/L (0-16.7)
== END 2023-12-22 07:22 | disposition home or self-care (01) ==
LOC: ANHLAB 07:26
PROVIDERS: PCP Emergency Medicine; Visit Provider Emergency Medicine
DX: E55.9 Vitamin D deficiency, unspecified (principal); E11.9 Type 2 diabetes mellitus without complications; E78.5 Hyperlipidemia, unspecified
CPT/HCPCS: 36415; 80053; 80061; 82043; 82306; 83036

== ENCOUNTER 2024-04-16 08:23 | Emergency (ER) | payer MEDICARE, SELFPAY ==
[2024-04-16 08:46] VITALS: BP 121/73; PULSE 59; RESP 16; TEMP 36.6; O2SAT 97
[2024-04-16 09:07] LABS: Basophils Absolute Auto 0.1 K/mm3 (0.0-0.1); Basophils Percent Auto 0.9 % (0.2-1.2); Eosinophils Absolute Auto 0.2 K/mm3 (0-0.3); Eosinophils Percent Auto 1.7 % (0-4.4); Hematocrit 41.6 % (37.0-47.0); Hemoglobin 13.4 g/dL (12.0-15.0); Immature Granulocyte Absolute 0.03 K/mm3 (0.00-0.031); Immature Granulocyte Percent A 0.3 % (0-0.5); Lymphocytes Absolute Auto 2.16 K/mm3 (0.9-3.2); Lymphocytes Percent Auto 21.2 % (18.3-44.2); Mean Corpuscular HGB Conc 32.2 g/dl (32-36); Mean Corpuscular Hemoglobin 30.4 pg (26-34); Mean Corpuscular Volume 94.3 fl (80-100); Mean Platelet Volume 12.2 fl (7.4-10.4); Monocytes Absolute Auto 0.9 K/mm3 (0.1-0.6); Monocytes Percent Auto 9.1 % (2.6-8.5); Neutrophils Absolute Auto 6.8 K/mm3 (1.3-6.7); Neutrophils Percent Auto 66.8 % (45.5-73.1); Platelet Count Result 234 k/mm3 (150-375); Red Blood Count 4.41 M/mm3 (4.2-5.4); White Blood Count 10.2 K/mm3 (4.5-10.0)
[2024-04-16 09:13] LABS: Add Urine Microscopic? YES; Appearance Urine Turbid (Clear); Bacteria Urine 4+ /hpf; Bilirubin Urine 1+ (Negative); Blood Urine 2+ (Negative); Color Urine Dark Yellow (Yellow); Glucose Urine UA Negative (Negative); Ketones Urine Trace mg/dL (Negative); Leukocyte Esterase Ur 3+ LEU/UL (Negative); Nitrate Urine Positive (Negative); Protein Urine 1+ mg/dL (Negative); Specific Grav Ur 1.021 (1.001-1.035); Squamous Epithelial Cell Urine None Seen /hpf (Few); WBC Urine >100 /hpf (0-3)
[2024-04-16 09:17] LABS: Alanine Aminotransferase 12 U/L (6-35); Albumin Level 4.2 g/dL (3.5-5.1); Alkaline Phosphatase 68 U/L (38-126); Anion Gap 7 mmol/L (4-12); Aspartate Amino Transferase 23 U/L (14-36); Bilirubin,Total 0.4 mg/dL (0.2-1.3); Blood Urea Nitrogen 18 mg/dL (7-17); Calcium 9.4 mg/dL (8.4-10.2); Carbon Dioxide 29 mmol/L (22-30); Chloride 105 mmol/L (98-107); Estimated CRCL calculation 43 ml/min; Estimated Glomerular Filt Rate 55; Glucose 81 mg/dL (65-110); Potassium 3.7 mmol/L (3.4-5.0); Sodium 141 mmol/L (137-145)
[2024-04-16 09:30] VITALS: BP 126/76; PULSE 78; RESP 16; TEMP 36.6; O2SAT 100
--- NOTE | 2024-04-16 09:44 | ED.FEMALEGU ---
HPI - Female Genitourinary General Chief complaint: Urogenital-Female Stated complaint: I have a UTI Time Seen by Provider: 04/16/24 09:35 History of Present Illness HPI Narrative: 73-year-old female present to the emergency department for evaluation for urinary symptoms. Patient began developing some urinary pain a few days ago. Patient did suspect that she had a urinary tract infection. Patient does describe increased frequency fell order and cloudiness of the urine. Patient had previously been on Macrobid but states this did not help. Related Data Home Medications Medication Instructions Recorded Confirmed duloxetine 60 mg capsule,delayed 60 mg PO BID 12/26/19 12/31/23 release (Cymbalta) ibuprofen 800 mg tablet See Rx Instructions .Route 10/22/22 12/31/23 .COMPLEX PRN Pain risperidone 1 mg tablet 1 mg PO QID 10/22/22 12/31/23 metoprolol tartrate 25 mg tablet 25 mg PO BID 10/27/22 12/31/23 furosemide 40 mg tablet 40 mg PO DAILY PRN Edema 09/16/23 12/31/23 loratadine 10 mg tablet (Claritin) 10 mg PO DAILY 09/16/23 12/31/23 Allergies Allergy/AdvReac Type Severity Reaction Status Date / Time erythromycin base Allergy Hives Verified 04/16/24 08:23 Penicillins Allergy Hives Verified 04/16/24 08:23 Review of Systems Review of Systems: All systems reviewed & are unremarkable except as noted in HPI and below PMFSH Past Medical History Medical History Arthritis Chronic obstructive pulmonary disease Chronic pain syndrome Cough Depression with anxiety Diastolic dysfunction Echocardiogram on 10/23/2022: normal LV size and function, estimated EF of 55 to 60%, diastolic dysfunction, moderate left atrial enlargement, and mild pulmonary hypertension. Gastroesophageal reflux disease Hyperlipidemia Hypertension Kidney stones Mild pulmonary hypertension Estimated PASP of 46 mmHg on echo in 10/2022. Nicotine use Normocytic anemia Shingles Sinus congestion Type 2 diabetes mellitus Diet-controlled, recent A1c was 6.0. Urinary frequency Urinary tract infection Vitamin D deficiency Surgical History Surgical History History of appendectomy History of fusion of cervical spine C4 through C6. History of hernia repair History of lithotripsy Family History Family History Sibling Family history of blood dyscrasia Family history of malignant neoplasm Family history of seizure disorder Mother Family history of malignant neoplasm, Onset Age: 85 Family history of lymphoma, Onset Age: 85 Family history of atrial fibrillation, Onset Age: 85 Social History Social History Social History: Surrogate medical decision maker: Usha Ashley, granddaughter. Code status: Full code. Smoking packs per day: 0 Smoking cigarettes per day: 0.0 Years smoked: 16 Smoking pack-years: 0.00 Smoking status: Current every day smoker Tobacco type: cigarettes Second hand tobacco smoke exposure: Yes Alcohol intake: current Substance use: never Substance use type: does not use Do You Feel Safe in your Home?: Yes Lack of Transportation: No Lack of Food: Sometimes True Current Housing: I Have Housing Concerned About Future Housing: YES Difficulty Paying Gas/Electric Bills: YES Difficulty Paying for Meds: YES Currently Unemployed: No Education: High School Diploma/GED Difficulty w/ Childcare or Family Care: No Living arrangements: alone Spiritual care concerns: No Agree to blood products: Yes Exam Narrative: APPEARANCE: Well appearing, no pain, no distress, well-nourished. HEAD: normocephalic, atraumatic. EYES: PERRLA/EOMI, conjunctivae clear. NOSE: Normal no drainage EARS:TMS clear with good light reflex. THROAT: Pharynx clear, no exudate. N
[2024-04-16] MEDS: PHENAZOPYRIDINE HCL 100 MG TABLET 200 MG PO (10:09)
[2024-04-16] MEDS: CEPHALEXIN 500 MG CAPSULE PO (10:10)
== END 2024-04-16 10:16 | disposition home or self-care (01) ==
PROVIDERS: Emergency Provider Emergency Medicine; PCP Emergency Medicine
DX: N39.0 Urinary tract infection, site not specified (principal); I11.9 Hypertensive heart disease without heart failure; E78.5 Hyperlipidemia, unspecified; E11.9 Type 2 diabetes mellitus without complications; E55.9 Vitamin D deficiency, unspecified; J44.9 Chronic obstructive pulmonary disease, unspecified; G89.4 Chronic pain syndrome; K21.9 Gastro-esophageal reflux disease without esophagitis; M19.90 Unspecified osteoarthritis, unspecified site; F41.8 Other specified anxiety disorders; F17.210 Nicotine dependence, cigarettes, uncomplicated; Z98.1 Arthrodesis status; Z87.440 Personal history of urinary (tract) infections; Z79.899 Other long term (current) drug therapy
CPT/HCPCS: 36415; 80053; 81001; 85025; 87077; 87086; 87186; 99283; A9270

== ENCOUNTER 2024-07-25 09:06 | Outpatient (CLI) | payer MEDICARE, SELFPAY ==
[2024-07-25 11:04] LABS: Alanine Aminotransferase 10 U/L (6-35); Albumin Level 3.8 g/dL (3.5-5.1); Alkaline Phosphatase 48 U/L (38-126); Anion Gap 4 mmol/L (4-12); Aspartate Amino Transferase 18 U/L (14-36); Bilirubin,Total 0.5 mg/dL (0.2-1.3); Blood Urea Nitrogen 18 mg/dL (7-17); Calcium 9.4 mg/dL (8.4-10.2); Carbon Dioxide 28 mmol/L (22-30); Chloride 109 mmol/L (98-107); Cholesterol 158 mg/dL (0-200); Estimated Glomerular Filt Rate > 60; Glucose 86 mg/dL (65-110); HDL Direct 52 mg/dL; Sodium 141 mmol/L (137-145); Triglycerides 188 mg/dL (<150)
[2024-07-25 11:15] LABS: LDL Cholesterol Direct 65 mg/dL
[2024-07-25 11:24] LABS: Vitamin D 25 Hydroxy 32.4 ng/mL
== END 2024-07-25 09:07 | disposition home or self-care (01) ==
LOC: ANHLAB 09:09
PROVIDERS: PCP Emergency Medicine; Visit Provider Emergency Medicine
DX: E55.9 Vitamin D deficiency, unspecified (principal); E78.5 Hyperlipidemia, unspecified
CPT/HCPCS: 36415; 80053; 80061; 82306

== ENCOUNTER 2024-08-03 09:04 | Outpatient (CLI) | payer MEDICARE, SELFPAY ==
--- NOTE | ~2024-08-03 | XR_ITS ---
Left Shoulder Technique: AP and scapular Y views were obtained. Clinical History: Pain Findings: No fracture or dislocation is seen. Osseous alignment is anatomic. Suture anchor noted at t he humeral head. The glenohumeral and acromioclavicular joint spaces are preserved. Soft tissues are unremarkable. Impression: No acute abnormality. Reviewed, dictated and finalized at location . [facility] Impression: No acute abnormality.
== END 2024-08-03 09:05 | disposition home or self-care (01) ==
PROVIDERS: PCP Emergency Medicine; Visit Provider Emergency Medicine
DX: M25.512 Pain in left shoulder (principal)
CPT/HCPCS: 73030

== ENCOUNTER 2024-08-24 08:54 | Outpatient (CLI) | payer MEDICARE, SELFPAY ==
--- NOTE | ~2024-08-24 | MR_ITS ---
EXAMINATION: MR shoulder LT wo con DATE: 08/24/2024 09:53 INDICATION: Left shoulder pain TECHNIQUE: Magnetic resonance imaging (MRI) of the left shoulder was performed without intravenous co ntrast. Sequences included axial PD-weighted FS FSE, coronal oblique PD-weighted FS FSE, coronal obli que T2-weighted FS FSE, sagittal PD-weighted FS FSE, and sagittal T1-weighted SE. COMPARISON: None. FINDINGS: Coracoacromial arch: Postoperative change of prior acromioplasty and distal clavicle resection. Rotator cuff: Moderate supraspinatus and mild infraspinatus tendinopathy with postoperative change of prior rotator cuff repair including a suture anchor at the greater tuberosity footplate. The repair appears grossl y intact with no evident residual/recurrent tear. The teres minor tendon is normal. Mild subscapulari s tendinopathy without tear. No asymmetric rotator cuff muscle atrophy or abnormal muscle signal. Biceps tendon, glenoid labrum and glenohumeral cartilage: Long head of the biceps tendon is normal. The anterior superior glenoid labrum. Small marginal osteophytes extending from the base of the poste rior inferior labrum. There is partial thickness cartilage loss with smooth chondral surface at the c ephalad half of the glenoid and along the superomedial aspect of the humeral head. Fluid: There is a small glenohumeral joint effusion with synovitis at the axillary recess. There is a propor tional extension of a small amount fluid in the long head biceps tendon sheath. No loose osteochondra l bodies. Small amount of fluid in the subacromial/subdeltoid bursa consistent with mild bursitis. Bones: Bone alignment is normal. No fracture or pathologic marrow replacing process. There are some cystic c hange along the middle facet of the greater tuberosity consistent with chronic rotator cuff disease. IMPRESSION: 1. Postoperative change of prior acromioplasty, distal clavicle resection and rotator cuff repair wit h residual tendinopathy but no residual or recurrent rotator cuff tear. 2. Mild glenohumeral osteoarthritis with tear of the superior and anterior glenoid labrum and small j oint effusion. 3. Mild subacromial/subdeltoid bursitis. Reviewed, dictated and finalized at location A. OR PAYROLL ADMINISTRATOR IMPRESSION: 1. Postoperative change of prior acromioplasty, distal clavicle resection and r otator cuff repair with residual tendinopathy but no residual or recurrent rota tor cuff tear. 2. Mild glenohumeral osteoarthritis with tear of the superior and anterior ambar oid labrum and small joint effusion. 3. Mild subacromial/subdeltoid bursitis.
--- OUTSIDE RECORDS SUMMARY | 2024-08-24 09:12 | XMS_ITS ---
Author Organization [facility] [facility] Address [facility] [address] [facility] [address] [place] [address] Care Team Providers Care Manufacturing Helper Name Role Phone Diego Mina MD Primary Care Provider Justino Fay Unavailable [phone] Medications Medication SIG (Take, Route, Fr equency, Duration) Notes Start Date End Date Status DULoxetine HCl 60 MG Take 1 capsule Oral twice a day for 30 days 04/19/2024 Active Social History Sex Assigned At : Social History Observation Description Sex Assigned At Female Encounters Encounter Location Date Provider Diagnosis [facility] [employer] [facility] [address] [facility] [address] [facility] [address] [place] [address] 04/19/[address] Major depressive disorder, recurrent, in full remission F33.42 Assessments Encounter Date Diagnosis (ICD Code) Assessment Notes Treatment Notes Treatment Clinical Notes Section Notes 04/19/2024 Major depressive disorder, recurrent, in full remission (ICD-10 - F33.42) Plan Of Treatment Medication Medication Name Sig Start Date Stop Date Notes DULoxetine HCl 60 MG Take 1 capsule Oral twice a day for 30 days 04/19/2024 Progress Notes * ARNOLDO MCCOYANNEREBECCAOB:1950 (73 yo F)Acc No.[id number]:04/19/2024 Patient: BHANU WAN :1950 A ge:73 Y S ex:Female Address:[address] [place] [address], [facility] [address], [place], [address] * Refills Refill DULoxetine HCl Capsule Delayed Release Particles, 60 MG, Oral, 60, Take 1 capsule, twice a day, 30 days, Refills=0 * true * Date: Generated for Harpal zimmer/Lv/Lolitaitting on: 0 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
--- OUTSIDE RECORDS SUMMARY | 2024-08-24 09:13 | XMS_ITS | Continuity of Care Document ---
Author Organization [facility] Address [address] [place] [address] Phone Care Team Providers Care Estate Planning Attorney Name Role Phone Jane Ruano MD, MD Unavailable Unavailable Advance Directives Directive Yes / No Effective Date File Name No Information Encounters Encounter Description Practice Location Reason(s) For Visit Diagnoses Date Provider Providers Copied on Encounter [facility] [place] [facility], [address] [place] [address] [place] [address], [place], [place], [id number], tel:[phone] [facility] [place] No Information Bindu Lara. [address] [place] [address] [address], [place], [place], [id number], [place]. tel:[phone] Family History Family Member Type Diagnosis Age At Onset No Information Payers Payer name Insurance type Covered republican ID Authoriza tion(s) Scan/Empg CI [id number] Social History Type Description Quantity Date Captured Comments Sex Female Smoking Status No Information Chief Complaint And Reason For Visit No Information Reason For Referral Reason For Referral No Information History Of Present Illness Encounter Date Complaint History Of Prese nt Illness No Information Functional Status Date Functional Assessmen t No Information Instructions Date Instruction Additional Infor mation No Information Assessments Type Assessment Date No Information Patient Care Teams Name Effective Dates (start - stop) Status Members No Information
--- OUTSIDE RECORDS SUMMARY | 2024-08-24 09:13 | XMS_ITS ---
Author Organization [facility] Address [facility] [address] [facility] [address] [place] [address] Care Team Providers Care Accounts Receivable Clerk Name Role Phone Diego Mina MD Primary Care Provider Justino Fay Unavailable [phone] REASON FOR VISIT Refills Medications Medication SIG (Take, Route, Fr equency, Duration) Notes Start Date End Date Status DULoxetine HCl 60 MG Take 1 capsule Oral twice a day for 30 days 04/19/2024 Active Social History Sex Assigned At : Social History Observation Description Sex Assigned At Female Encounters Encounter Location Date Provider Diagnosis [facility] [facility] [address] [facility] [address] [address] 04/19/[address] Major depressive disorder, recurrent, [...] for 30 days 04/19/2024 Progress Notes * ANICETOMOLINA MCCOYANNEREBECCAOB:1950 (73 yo F)Acc No.[id number]:04/19/2024 Patient: BHANU WAN :1950 A ge:73 Y S ex:Female Address:[address] [place] [address], [facility] [address], [place], [address] * Refills Start DULoxetine HCl Capsule Delayed Release Particles, 60 MG, Oral, Take 1 capsule, twice a day, 30 days, Refills=0 Subjective: * Chief Complaints: * R efills * Medical History: * Surgical History: * Hospitalization/Major Diagno stic Procedure: * Medications: Objective: * Vitals: * Physical Examination: Assessment: * Assessment: 1. 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
--- OUTSIDE RECORDS SUMMARY | 2024-08-24 09:13 | XMS_ITS | Clinical Summary ---
Author Organization [facility] Address [address] [place] [address] Care Team Providers Care Warehouse Representative Name Role Phone Unavailable Primary Care Provider Unavailabl e Social History Tobacco Use Types Packs/Day Years Used Date Smoking Tobacco: Never Assessed Comments Unknown Sex and Gender Information Value Date Recorded Sex Assigned at Not on file Legal Sex Female 1:52 AM PST Gender Identity Not on file Sexual Orientation Not on file Plan of Treatment Not on file
--- OUTSIDE RECORDS SUMMARY | 2024-08-24 09:13 | XMS_ITS | Referral Summary ---
Author Organization [facility] Address [address] [facility] [place] [address] Care Team Providers Care Rn Teacher Name Role Phone Unavailable Primary Care Provider [...]
--- OUTSIDE RECORDS SUMMARY | 2024-08-24 09:13 | XMS_ITS | Patient Health Record ---
Author Organization [facility] Address [address] [place] [address] Care Team Providers Care Practice Professional Name Role Phone Diego Mina MD Primary Care Provider Unavail able Justino Street Unavailable [phone] Migration, Provider Unavailable Unavailable Allergies Allergen (clinical drug ingredient) Drug/Non Drug Allergy documented on EMR Reaction Allergy Type Onset Date Status morphine Morphine Unknown Drug Allergy 09/09/2023 Active vancomycin Vancomycin Unknown Drug Allergy 09/09/2023 Acti ve Reason For Referral No Information Medications Medication SIG (Take, Route, Frequency, Duration) Notes Start Date End Date Status DULoxetine HCl 60 MG 1 capsule Oral twice a day for 30 days Active risperiDONE 1 MG 1 tablet Oral three times a day for 30 days Active Furosemide 40 MG Oral 09/09/2023 Ac tive Diclofenac Sodium 1% Transdermal 09/09/2023 Active Nitrofurantoin Monohyd Macro 100 MG Oral 09/09/2023 Active Azelastine HCl 137 MCG/SPRAY Nasal 09/09/2023 Active Lidocaine 5% External 09/09/2023 Active Cefuroxime Axetil 500 MG Oral 09/09/2023 Active HYDROcodone-Acetaminop hen 5-325 MG Oral 09/09/2023 Active Gabapentin 800 MG Oral 09/09/2023 A ctive Ergocalciferol 1.25 MG (05686 UT) Oral 09/09/2023 Active Metoprolol Tartrate 25 MG Oral 09/09/2023 Active metFORMIN HCl 500 MG Oral 09/09/2023 Active Naloxone HCl 4 MG/0.1ML Nasal 09/09/2023 Active Fluticasone Propionate Diskus 50 MCG/ACT Inhalation *Reorder from [facility] for eRx and Interaction Alerts* 09/09/2023 Active Simvastatin 20 MG Oral 09/09/2023 A ctive CHOLECALCIFEROL (VITAMIN D3) 50 MCG (2,000 UNIT) CAPSULE *Reorder from [facility] for eRx and Interaction Alerts* 09/09/2023 Active Alendronate Sodium 70 MG Oral 09/09/2023 Active Social History Sex Assigned At : Social History Observation Description Sex Assigned At Female Problems Problem Type SNOMED Code ICD Code Onset Dates Problem Status W/U Status Risk Notes Problem 40059337 Major depressive disorder, recurrent, in partial remission (F33.41) Active confirmed Problem Recurrent major depression in full remission (50180711) Major depressive disorder, recurrent, in full remission (F33.42) Active confirmed Vital Signs Heart Rate 97 /min 07/07/2024 Height-cm 154.94 cm 07/07/2024 Blood pressure diastolic 84 mm Hg 07/07/2024 Weight-kg 81.28 kg 07/07/2024 Height 61.00 in 07/07/2024 Blood pressure systolic 144 mm Hg 07/07/2024 Weight 179.2 lbs 07/07/2024 BMI 33.86 kg/m2 07/07/2024 Encounters Encounter Location Date Provider Diagnosis [facility] [place] [address] [facility] [address] [address] 07/07/2024 Thena Jad Hypertension, unspecified type 401.9 ; Major depressive disorder, recurrent, in full remission F33.42 ; Post-traumatic stress disorder, chronic F43.12 and 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 [facility] [place] [address] [facility] [address] [address] 09/09/2023 Thena Jad Post-traumatic stress disorder, chronic F43.12 and Major depressive disorder, recurrent, in full remission F33.42 [facility] [place] [address] [facility] [address] [address] 10/13/2023 Provider Migration Major depressive disorder, recurrent, in full remission F33.42 [facility] [place] [address] [facility] [address] [address] 12/01/2023 Provider Migration Major depressive disorder, recurrent, in full remission F33.42 [facility] [place] [address] [facility] [address] [address] 02/07/2024 Thena Jad Major depressive disorder, recurrent, in partial remission F33.41 ; 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 and Post-traumatic stress disorder, chronic F43.12 [place] [address] [address] 11/19/2023 Provider Migration [address] [address] 11/27/2023 Provider Migration [address] [address] 11/28/2023 Provider Migration [address] [address] 01/14/2024 Thena Jad Major depressive disorder, recurrent, in full remission F33.[address] [address] 04/19/2024 Thena Jad Major depressive disorder, recurrent, in full remission F33.[address] [address] 04/19/2024 Thena Jad Major depressive disorder, recurrent, in full remission F33.42 Assessments Encounter Date Diagnosis (ICD Code) Assessment Notes Treatment Notes Treatment Clinical Notes Section Notes 04/19/2024 Major depressive disorder, recurrent, in full remission (ICD-10 - F33.42) 01/14/2024 Major depressive disorder, recurrent, in full remission (ICD-10 - F33.42) 02/07/2024 Major depressive disorder, recurrent, in partial remission (ICD-10 - F33.41) 07/07/2024 Hypertension, unspecified type (ICD9-CM - 401.9) 04/19/2024 Major depressive disorder, recurrent, in full remission (ICD-10 - F33.42) 02/07/2024 Complicated bereavement (ICD-10 - F43.21) 09/09/2023 Major depressive disorder, recurrent, in full remission (ICD-10 - F33.42) 09/09/2023 Post-traumatic stress disorder, chronic (ICD-10 - F43.12) 10/13/2023 Major depressive disorder, recurrent, in full remission (ICD-10 - F33.42) 12/01/2023 Major depressive disorder, recurrent, in full remission (ICD-10 - F33.42) 07/07/2024 Major depressive disorder, recurrent, in full remission (ICD-10 - F33.42) 02/07/2024 Post-traumatic stress disorder, chronic (ICD-10 - F43.12) 07/07/2024 Post-traumatic stress disorder, chronic (ICD-10 - F43.12) 07/07/2024 Complicated bereavement (ICD-10 - F43.21) Plan Of Treatment No Information Insurance Providers Payer Name Payer Address Payer Phone Subscriber Number Group Number Insured Name Patient Relationship to Insured Coverage Start Date Coverage End Date [employer] Medicare Replacement/ Advantage - Hmo [address] [address] [place] [address] [id number] BHANU COULTER Self - patient is the insured Medical (General) History Medical History History ICD Code Problems: Bereavement Chronic post-traumatic stress disorder Diabetic peripheral neuropathy Essential hypertension Recurrent major depression in full remis chang , Surgical History Surgery Date(Month/Year) Partial repair of rotator cuff (88392323 7) Cervical arthrodesis (07705439) Carpal tunnel surgery (55280)
--- OUTSIDE RECORDS SUMMARY | 2024-08-24 09:13 | XMS_ITS | Continuity of Care Document ---
Author Organization [id number] Address [address] [place] [address] Phone Care Team Providers Care Grey Stock Recorder Name Role Phone Suleiman Gloria MD Unavailable Unavailable Allergies, Adverse Reactions, Alerts Substance Reaction Status Criticality morphine Active No Information sulfabenzamide Active No Informatio n vancomycin Active No Information Medications Medication Instructions Dosage Effective Dates (start - stop) Status Comments ZYRTEC (unknown strength) Not Available - Active CYMBALTA (unknown strength) Not Available - Active NEURONTIN (unknown strength) take 3 capsule by oral route 3 times every day Not Available - Active ZANAFLEX (unknown strength) take 2 capsule by oral route every 6 hours Not Available - Active RESTORIL (unknown strength) take 1 capsule by oral route every day at bedtime as needed Not Available - Active PAXIL (unknown strength) take 1 tablet by oral route every day Not Available - Active PROCHLORPERAZINE MALEATE (unknown strength) take 1 tablet by oral route every 4 hours as needed for nausea and vomiting Not Available - Active TIROSINT (unknown strength) take 1 capsule by oral route every day Not Available - Active METOPROLOL TARTRATE (unknown strength) take 1 tablet by oral route 2 times every day Not Available - Active CLARITIN (unknown strength) take 10 milliliter by oral route every day Not Available - Active ATIVAN (unknown strength) inject 1 milliliter by intravenous route 30 minutes before chemotherapy Not Available - Active NORCO (unknown strength) take 1 tablet by oral route 4 - 6 hours as needed for pain Not Available - Active Procedures Procedure Date Office or other outpatient v isit for the evaluation and management of an establi Advance Directives Directive Yes / No Effective Date File Name No Information Encounters Encounter Description Practice Location Reason(s) For Visit Diagnoses Date Provider Providers Copied on Encounter [id number], [address] [place] [address], [place], [place], [id number], [place] tel:[phone] [facility] [address] right hip pain (chief complaint) No Information Faizan Bearden. [address], [facility] [address], [place], [place], [id number], [place]. tel:[phone] Referring Provider: Kylee Rucker, [address] [facility] [address], [place], [address]. tel:[phone] [id number], [address] [place] [address], [place], [place], [id number], [place] tel:[phone] [facility] [address] left foot fracture (chief complaint) No Information Pedro Fleming. [address], [facility] [address], [place], [place], [id number], [place]. tel:[phone] Referring Provider: Kylee Rucker, [address]ilia [address] [facility] [address], [place], [address]. tel:[phone] Office or other outpatient visit for the evaluation and management of an establi [id number], [address] [place] [address], [place], [place], [id number], [place] tel:[phone] [facility] [address] right hip pain (chief complaint) Osteoarthrosi s, localized, primary, involving pelvic region and thigh Pedro Fleming. [address], [facility] [address], [place], [place], [id number], [place]. tel:[phone] Referring Provider: Lonnie Vasquez, [address], [place], [address]. tel:[phone] [id number], [address] [place] [address], [place], [place], [id number], [place] tel:[phone] [facility] [address] right elbow (chief complaint) No Information Dileepkathleen Kylee. [address], [place], [address], [place]. tel:[phone] Referring Provider: Kylee Rucker, [address], [place], [address]. tel:[phone] [id number] [facility], [address] [place] [address], [place], [place], [id number], [place] tel:[phone] [facility] [address] right elbow pain (chief complaint) No Information Alka Pichardo. [address], [place], [address], [place]. tel:[phone] Referring Provider: Kylee Rucker, [address], [place], [address]. tel:[phone] [id number] [facility], [address] [place] [address], [place], [place], [id number], [place] tel:[phone] [facility] [address] No Information Alka Pichardo. [address], [place], [address], [place]. tel:[phone] Referring Provider: Kylee Rucker, [address], [place], [address]. tel:[phone] Family History Family Member Type Diagnosis Age At Onset Mother Problem (finding) Maternal history of jose betes mellitus Father Problem (finding) cancer of colon Payers Payer name Insurance type Covered libertarian ID Authoriza tibishnu(s) Scan/Empg CI [id number] Social History Type Description Quantity Date Captured Comments Alcohol Use Details Unknown Caffeine Use Details Unknown Tobacco Use Status No Information Smoking Status No Information Smoking Tobacco Use Details Cigarette: No Details Available Cigarette: No Details Available Sex Female Chief Complaint And Reason For Visit From encounter dated '02/02/2014 13:00'. right hip pain (chief complaint) Reason For Referral Reason For Referral No Information History Of Present Illness Encounter Date Complaint History Of Prese nt Illness right hip pain left foot fracture Functional Status Date Functional Assessmen t No Information Instructions Date Instruction Additional Infor mation No Information Assessments Type Assessment Date No Information Patient Care Teams Name Effective Dates (start - stop) Status Members No Information
--- OUTSIDE RECORDS SUMMARY | 2024-08-24 09:13 | XMS_ITS ---
Author Organization [facility] [employer] Address [address] [place] [address] Care Team Providers Care Hot Strip Mill Inspector Name Role Phone Diego Mina MD Primary Care Provider Unavail able Justino Amin Unavailable [phone] Allergies Allergen (clinical drug ingredient) Drug/Non Drug Allergy documented on EMR Reaction Allergy Type Onset Date Status morphine Morphine Unknown Drug Allergy 09/09/2023 Active vancomycin Vancomycin Unknown Drug Allergy 09/09/2023 Acti ve REASON FOR VISIT phq less than 5, MIPS Pre hypertension, depression Medications Medication SIG (Take, Route, Frequency, Duration) Notes Start Date End Date Status Fluticasone Propionate Diskus 50 MCG/ACT Inhalation *Reorder from [facility] for eRx and Interaction Alerts* 09/09/2023 Active CHOLECALCIFEROL (VITAMIN D3) 50 MCG (2,000 UNIT) CAPSULE *Reorder from [facility] for eRx and Interaction Alerts* 09/09/2023 Active Furosemide 40 MG Oral 09/09/2023 Ac tive Nitrofurantoin Monohyd Macro 100 MG Oral 09/09/2023 Active Lidocaine 5% External 09/09/2023 Active Metoprolol Tartrate 25 MG Oral 09/09/2023 Active metFORMIN HCl 500 MG Oral 09/09/2023 Active DULoxetine HCl 60 MG 1 capsule Oral twice a day for 30 days Active risperiDONE 1 MG 1 tablet Oral three times a day for 30 days Active Ergocalciferol 1.25 MG (14241 UT) Oral 09/09/2023 Active Diclofenac Sodium 1% Transdermal 09/09/2023 Active Azelastine HCl 137 MCG/SPRAY Nasal 09/09/2023 Active Cefuroxime Axetil 500 MG Oral 09/09/2023 Active HYDROcodone-Acetaminop hen 5-325 MG Oral 09/09/2023 Active Gabapentin 800 MG Oral 09/09/2023 A ctive Naloxone HCl 4 MG/0.1ML Nasal 09/09/2023 Active Simvastatin 20 MG Oral 09/09/2023 A ctive Alendronate Sodium 70 MG Oral 09/09/2023 Active Social History Sex Assigned At : Social History Observation Description Sex Assigned At Female Vital Signs Blood pressure systolic 144 mm Hg 07/07/20 24 Blood pressure diastolic 84 mm Hg 024 Heart Rate 97 /min 07/07/2024 Height 61.00 in 07/07/2024 Weight 179.2 lbs 07/07/2024 BMI 33.86 kg/m2 07/07/2024 Height-cm 154.94 cm 07/07/2024 Weight-kg 81.28 kg 07/07/2024 Encounters Encounter Location Date Provider Diagnosis [facility] [employer] [address] [address] 07/07/2024 Justino Amin Hypertension, unspecified type 401.9 ; Major depressive disorder, recurrent, in full remission F33.42 ; Post-traumatic stress disorder, chronic F43.12 and 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 Assessments Encounter Date Diagnosis (ICD Code) Assessment Notes Treatment Notes Treatment Clinical Notes Section Notes 07/07/2024 Hypertension, unspecified type (ICD9-CM - 401.9) 07/07/2024 Major depressive disorder, recurrent, in full remission (ICD-10 - F33.42) 07/07/2024 Post-traumatic stress disorder, chronic (ICD-10 - F43.12) 07/07/2024 Complicated bereavement (ICD-10 - F43.21) Plan Of Treatment Medication Medication Name Sig Start Date Stop Date Notes DULoxetine HCl 60 MG 1 capsule Oral twic e a day for 30 days risperiDONE 1 MG 1 tablet Oral three times a day for 30 days Next Appt Details Follow Up: 3 Months, Reason: mdd, ptsd Progress Notes * JOEL COULTEROB:1950 (74 yo F)Acc No.[id number]:07/07/2024 Patient: Elisabeth AMAYA NADINEANNEHY Provider: Yuriy AMIN MD :1950 A ge:73 Y S ex:Female Date:07/07/2024 Address:[address], [facility] Pcp:Diego Mina MD Subjective: * Chief Complaints: * 1 . Phq less than 5. 2. MIPS Pre hypertension. 3. Depression. * HPI: D epression screening: PHQ-9 L ittle interest or pleasure in doing things N ot at all, F eeling down, depressed, or hopeless N ot at all, T rouble falling or staying asleep, or sleeping too much N ot at all, F eeling tired or having little energy N ot at all, P oor appetite or overeating S everal days, F eeling bad about yourself or that you are a failure, or have let yourself or your family down N ot at all, T rouble concentrating on things, such as reading the newspaper or watching television N ot at all, M oving or speaking so slowly that other people could have noticed; or the opposite, being so fidgety or restless that you have been moving around a lot more than usual N ot at all, T houghts that you would be better off or of hurting yourself in some way N ot at all, T otal Score 1 , Interpretation M inimal Depression. I ntervention D epression Screening Findings N egative, S uicide Risk Assessment Performed . D epression Screening: FADUMO-7 (2018 Edition) F eeling nervous, anxious, or on edge?Not at all, N ot being able to stop or control worrying N ot at all, W orrying too much about different things N ot at all, T rouble relaxing S everal days, B eing so restless that it is hard to sit still N ot at all, B ecoming easily annoyed or irritable?Not at all, F eeling afraid as if something awful might happen N ot at all, T otal FADUMO-7 Score 1 , I f you checked any problems, how difficult have they made it for you to do your work, take care of things at home, or get along with other people? N ot difficult at all, I nterpretation of Total ( 0 to 4) No Anxiety. F unctional Status: just getting over bronchitis [place] Day went to granddaughter's briefly, then stayed home instead of going to relative's for dinner; discussed indication of mild neurocognitive disorder based on SLUMS eval, with particular concern re: clock drawing; pt gets frustrated with rude drivers, pt drives her granddaughter around quite a bit in addition to running her own errands; otherwise doing well, has noticed that she runs out of duloxetine sooner than risperidone, appears that she often forgets to take 3rd dose of risperidone, but is doing well, stable at this time and does not want to make any additional changes at this time. * Medical History: [place]: Bereavement, Chronic post-traumatic stress disorder, Diabetic peripheral neuropathy, Essential hypertension, Recurrent major depression in full remission, ,. * Medications: T bernardo DULoxetine HCl 60 MG Capsule Delayed Release Particles TAKE 1 CAPSULE BY MOUTH TWICE DAILY , Taking Naloxone HCl 4 MG/0.1ML Liquid Nasal , Taking Simvastatin 20 MG Tablet Oral , Taking Alendronate Sodium 70 MG Tablet Oral , Taking Diclofenac Sodium 1% Gel Transdermal , Taking Azelastine HCl 137 MCG/SPRAY Solution Nasal , Taking Cefuroxime Axetil 500 MG Tablet Oral , Taking HYDROcodone-Acetaminophen 5-325 MG Tablet Oral , Taking Gabapentin 800 MG Tablet Oral , Taking Ergocalciferol 1.25 MG (43341 UT) Capsule Oral , Taking Metoprolol Tartrate 25 MG Tablet Oral , Taking metFORMIN HCl 500 MG Tablet Oral , Taking Fluticasone Propionate Diskus 50 MCG/ACT Aerosol Powder Breath Activated Inhalation , Notes to Pharmacist: *Reorder from [facility] for eRx and Interaction Alerts*, Taking CHOLECALCIFEROL (VITAMIN D3) 50 MCG (2,000 UNIT) CAPSULE , Notes to Pharmacist: *[facility] for [facility]Rx and Interaction Alerts*, Taking Furosemide 40 MG Tablet Oral , Taking Nitrofurantoin Monohyd Macro 100 MG Capsule Oral , Taking Lidocaine 5% Ointment External , Taking risperiDONE 1 MG Tablet 1 tablet Oral three times a day , Medication List reviewed and reconciled with the patient * Allergies: M orphine: Allergy - Onset Date 09/09/2023, Vancomycin: Allergy - Onset Date 09/09/2023. Objective: * Vitals: B P:144/84mm Hg, HR:97/min, Wt:179.2lbs, Wt-k.28 kg, Ht: 61.00 in, Ht-cm: 154.94 cm, BMI:33.86Index, Body Surface Area: 1.87. * Examination: N eurology: Cognition Assessment Tools Used . P sychiatry: Appearance: w ell-groomed, well-nourished, .... Affect / mood: a ppropriate, full range. Attention: g ood. Attitude: c ooperative. Suicidal ideation: n one. Memory status: n o impairment noted. Degree of awareness of surroundings: w ithin normal limits.? Delusions: n o. Hallucinations: n o. Insight: g ood. Intellectual functioning: n o impairment noted. Judgement: g ood. Orientation: a wake, alert and oriented x 3. Perceptual disorders: n o perceptual disorder noted. Psychomotor activity: w ithin normal range. Speech / language: a ppropriate pitch/modulation, clear and coherent, normal rate, volume, and articulation (RVR), proper grammar used. Thought content: a ppropriate. Thought process: i ntact. Assessment: * Assessment: 1. H ypertension, unspecified type - 401.9 2 . M ajor depressive disorder, recurrent, in full remission - F33.42 3 . P ost-traumatic stress disorder, chronic - F43.12 4 . C omplicated bereavement - F43.21 Plan: * Treatment: * Procedure Codes: 9 6127 BEHAV ASSMT W/SCORE & DOCD/STAND INSTRUMENT, G8734 ELDER MALTX SCR DOC NEG NO F/U RQR * Preventive Medicine: Counseling: B P Management: R EFERRAL TO ALTERNATIVE / PRIMARY CARE PROVIDER:?Referral to doctor already being treated by pcp for hypertension. * Follow Up: 3 Months (Reason: mdd, ptsd) * Billing Information: * Visit Code: * Procedure Codes: 18304 BEHAV ASSMT W/SCORE & DOCD/STAND INSTRUMENT. G8734 ELDER MALTX SCR DOC NEG NO F/U RQR. * Electronic signature of Nena Amin MD on 08/24/2024 at 09:13 AM REPORT MANAGER Sign off status: Pending * Provider: Yuriy AMIN MD Date: 1 09/07/2023 Generated for Harpal zimmer/Lv/Emeraldransmitting on: 0 08/24/2024 09:13 AM REPORT MANAGER History and Physical Notes * HPI (History of Present Illness) Category Sub-Category Detail Notes Category Not es Depression screening PHQ-9 Little inte rest or pleasure in doing things: Not at all Feeling down, depressed, or hopeless: No t at all Trouble falling or staying asleep, or sl eeping too much: Not at all Feeling tired or having little energy: N ot at all Poor appetite or overeating: Several day s Feeling bad about yourself o r that you are a failure, or have let yourself or your family down: Not at all Trouble concentrating on thi ngs, such as reading the newspaper or watching television: Not at all Moving or speaking so slowly that other people could have noticed; or the opposite, being so fidgety or restless that you have been moving around a lot more than usual: Not at all Thoughts that you would be b nitin off or of hurting yourself in some way: Not at all Total Score: 1 Interpretation: Minimal Depression Intervention Depression Screening Findings: N egative Suicide Risk Assessment Performed: ____ Functional Status just getting over bronchitis Day went to granddaughter's briefly, then stayed home instead of going to relative's for dinner; discussed indication of mild neurocognitive disorder based on SLUMS eval, with particular concern re: clock drawing; pt gets frustrated with rude drivers, pt drives her granddaughter around quite a bit in addition to running her own errands; otherwise doing well, has noticed that she runs out of duloxetine sooner than risperidone, appears that she often forgets to take 3rd dose of risperidone, but is doing well, stable at this time and does not want to make any additional changes at this time Depression Screening FADUMO-7 (2018 Edition) Feeling nervous, anxious, or on edge: Not at all Not being able to stop or control worryi ng: Not at all Worrying too much about different things : Not at all Trouble relaxing: Several days Being so restless that it is hard to sit still: Not at all Becoming easily annoyed or irritable: No t at all Feeling afraid as if something awful jamal ht happen: Not at all Total FADUMO-7 Score: 1 If you checked any problems, how difficult have they made it for you to do your work, take care of things at home, or get along with other people?: Not difficult at all Interpretation of Total: (0 to 4) No Anx iety Examination Category Sub-Category Detail Notes Category Not es Neurology Cognition Assessment Tools Used Total score SLUMS: 22 Psychiatry Appearance: well-groomed, we ll-nourished, ... Attitude: cooperative Psychomotor activity: within normal rang e Attention: good Degree of awareness of surroundings: wit hin normal limits Orientation: awake, alert and abbey ented x 3 Affect / mood: appropriate, full ra nge Speech / language: appropriate pitch/mo dulation, clear and coherent, normal rate, volume, and articulation (RVR), proper grammar used Insight: good Judgement: good Thought process: intact Thought content: appropriate Perceptual disorders: no perceptual diso rder noted Suicidal ideation: none Intellectual functioning: no impairment noted Memory status: no impairment noted Delusions: no Hallucinations: no
--- OUTSIDE RECORDS SUMMARY | 2024-08-24 09:13 | XMS_ITS | CCD ---
Author Organization [facility] Address [address] [place] [address] Care Team Providers Care Corporate Aircraft Mechanic Name Role Phone Unavailable Primary Care Provider [...]
--- OUTSIDE RECORDS SUMMARY | 2024-08-24 09:13 | XMS_ITS | Encounter Summary ---
Author Organization [facility] Address [address] [place] [address] Care Team Providers Care Bagging Salvager Name Role Phone Unavailable Primary Care Provider Unavailabl e Prior Encounters Date Type Department Care Team Description 07/31/2019 Converted CPS Chart Documents [facility] [phone] Maur[address] Giles, [facility] [address] [place] [address] <No scans attached> 07/31/2019 Converted 13x Documents [facility] [phone]iles, [facility] [address] [place] [address] <No scans attached> Plan of Treatment Not on file Procedures Procedure Name Priority Date/Time Associated Diagnosis Comments 8 MIFL COMPOSITE FILLING Routine 015 12:00 AM PST 8 LIMITED ORAL EVALUATION - PROBLEM FOCUSED Routine 05/23/2014 12:00 AM PST 8 MIL COMPOSITE FILLING Routine 05/23/20 14 12:00 AM PST MISSED APPOINTMENT Routine 05/10/2014 12 :00 AM PDT CANCELLED APPOINTMENT Routine 11/10/2013 12:00 AM PDT CANCELLED APPOINTMENT Routine 08/15/2013 12:00 AM PST PERIO MAINTENANCE Routine 08/15/2013 12: 00 AM PST ORAL HYGIENE INSTRUCTIONS Routine 2013 12:00 AM PST 1 FM IRR W/PERIO MAINT Routine 4 12:00 AM PST CANCELLED APPOINTMENT Routine 03/29/2013 12:00 AM PDT ADJUNCTIVE PRE-DIAGNOSTIC TEST THAT AIDS IN DETECTION OF MUCOSAL ABNORMALITIES Routine 02/09/2013 12:00 AM PDT PERIODIC ORAL EVALUATION - ESTABLISHED PATIENT Routine 02/09/2013 12:00 AM PDT ADDITIONAL X-RAY Routine 02/09/2013 12:0 0 AM PDT SINGLE X-RAY Routine 02/09/2013 12:00 AM PDT PERIO MAINTENANCE Routine 11/29/2012 12: 00 AM PDT ORAL HYGIENE INSTRUCTIONS Routine 2012 12:00 AM PDT 1 FM IRR W/PERIO MAINT Routine 3 12:00 AM PDT OFFICE VISIT FOR OBSERVATION (DURING REGULARLY SCHEDULED HOURS) - NO OTHER SERVICES PERFORMED Routine 10/20/2012 12:00 AM PDT ADDITIONAL X-RAY Routine 09/27/2012 12:0 0 AM PDT SINGLE X-RAY Routine 09/27/2012 12:00 AM PDT 28 UNSPECIFIED FIXED PROSTHODONTIC PROCEDURE, BY REPORT Routine 09/13/2012 12:00 AM PST TREATMENT OF COMPLICATIONS (POST-SURGICAL) - UNUSUAL CIRCUMSTANCES, BY REPORT Routine 08/23/2012 12:00 AM PST ORAL SURG CONSULT Routine 08/16/2012 12: 00 AM PST 29 EXTRACTION, ERUPTED TOOTH REQUIRING REMOVAL OF BONE AND/OR SECTIONING OF TOOTH Routine 08/16/2012 12:00 AM PST 28 UNSPECIFIED FIXED PROSTHODONTIC PROCEDURE, BY REPORT Routine 08/09/2012 12:00 AM PST 29 PONTIC - PFM - POST Routine 3 12:00 AM PST 28 RETAINER CROWN - PFM - POST Routine 08/08/2012 12:00 AM PST 30 PONTIC - PFM - POST Routine 3 12:00 AM PST 31 RETAINER CROWN - PFM - POST Routine 08/08/2012 12:00 AM PST 29 PALLIATIVE TREATMENT OF DENTAL PAIN Routine 08/08/2012 12:00 AM PST 1 FELICIA DECON Routine 08/01/2012 12:00 AM PST 3 UR PERIODONTAL SCALING AND ROOT PLANING - ONE TO THREE TEETH PER QUADRANT Routine 08/01/2012 12:00 AM PST PLAN VISIT FEE Routine 08/01/2012 12:00 AM PST 31 PREFABRICATED POST AND CORE IN ADDITION TO CROWN Routine 07/25/2012 12:00 AM PST 14 CROWN - FULL CAST HIGH BOWMAN METAL Routine 07/25/2012 12:00 AM PST 2 ENDODONTIC THERAPY, MOLAR TOOTH (EXCLUDING FINAL LATTER DAY) Routine 07/25/2012 12:00 AM PST 30 PONTIC - PFM - POST Routine 3 12:00 AM PST 31 RETAINER CROWN - PFM - POST Routine 07/25/2012 12:00 AM PST 29 RETAINER CROWN - PFM - POST Routine 07/25/2012 12:00 AM PST 19 CROWN - FULL CAST HIGH BOWMAN METAL Routine 07/25/2012 12:00 AM PST 2 CROWN - FULL CAST HIGH BOWMAN METAL Routine 07/25/2012 12:00 AM PST 20 O AMALGAM 1 SURFACE Routine 3 12:00 AM PST 3 ENDODONTIC THERAPY, MOLAR TOOTH (EXCLUDING FINAL LATTER DAY) Routine 07/25/2012 12:00 AM PST 31 ENDODONTIC THERAPY, MOLAR TOOTH (EXCLUDING FINAL LATTER DAY) Routine 07/25/2012 12:00 AM PST 4 CROWN PFM POST Routine 07/25/2012 12:0 0 AM PST 3 CROWN PFM POST Routine 07/25/2012 12:0 0 AM PST COMPREHENSIVE ORAL EVALUATION - NEW OR ESTABLISHED PATIENT Routine 07/25/2012 12:00 AM PST INTRAORAL - COMPREHENSIVE SERIES OF RADIOGRAPHIC IMAGES Routine 07/25/2012 12:00 AM PST INTRAORAL PHOTO Routine 07/25/2012 12:00 AM PST INTRAORAL PHOTO Routine 07/25/2012 12:00 AM PST INTRAORAL PHOTO Routine 07/25/2012 12:00 AM PST INTRAORAL PHOTO Routine 07/25/2012 12:00 AM PST 12 DO COMPOSITE FILLING Routine 07/25/19 13 12:00 AM PST 5 B COMPOSITE FILLING Routine 07/25/2012 12:00 AM PST 8 ML COMPOSITE FILLING Routine 3 12:00 AM PST 7 DL COMPOSITE FILLING Routine 3 12:00 AM PST Visit Diagnoses Not on file
--- OUTSIDE RECORDS SUMMARY | 2024-08-24 09:13 | XMS_ITS ---
Author Organization [facility] Address [address] [place] [address] Care Team Providers Care Teacher Assistant Name Role Phone Unavailable Unavailable Unavailable Surgery Details Not on file Complications Check Surgery Details section. Procedure Estimated Blood Loss Check Surgery Details section. Procedure Findings Check Surgery Details section. Procedure Specimens Taken Check Surgery Details section.
== END 2024-08-24 08:55 | disposition home or self-care (01) ==
PROVIDERS: PCP Emergency Medicine; Visit Provider Emergency Medicine
DX: M19.012 Primary osteoarthritis, left shoulder (principal); M75.52 Bursitis of left shoulder
CPT/HCPCS: 73221

== ENCOUNTER 2024-09-29 09:07 | Outpatient (CLI) | payer MEDICARE, SELFPAY ==
--- NOTE | ~2024-09-29 | XR_ITS ---
Clinical Indication: Chronic cough PA and lateral views of the chest: Comparison: 09/16/2023 Findings: Small left pleural effusion is present. Possible minimal right pleural effusion. Cardiomed iastinal silhouette is stable. Bones and soft tissues are unremarkable. Impression: Small left pleural effusion and possible minimal right pleural effusion. Reviewed, dictated and finalized at [facility]. Impression: Small left pleural effusion and possible minimal right pleural effusion.
--- OUTSIDE RECORDS SUMMARY | 2024-09-29 10:09 | XMS_ITS | Encounter Summary ---
Author Organization [facility] Address [address] [place] [address] Care Team Providers Care Door And Arrival Attendant Name Role Phone Unavailable Primary Care Provider Unavailabl e Prior Encounters Date Type Department Care Team Description 07/31/2019 Converted CPS Chart Documents [facility] [phone] Maura Giles, [facility] [address] [place] [address] <No scans attached> 07/31/2019 Converted 13x Documents [facility] [phone] Maura Giles, [facility] [address] [place] [address] <No scans attached> Plan of [...] PST 14 CROWN - FULL CAST HIGH BOWAMN METAL Routine 07/25/2012 12:00 AM PST 2 ENDODONTIC THERAPY, MOLAR TOOTH (EXCLUDING FINAL RELIGIOUS) Routine 07/25/2012 12:00 AM PST 30 PONTIC [...] 3 ENDODONTIC THERAPY, MOLAR TOOTH (EXCLUDING FINAL RELIGIOUS) Routine 07/25/2012 12:00 AM PST 31 ENDODONTIC THERAPY, MOLAR TOOTH (EXCLUDING FINAL RELIGIOUS) Routine 07/25/2012 12:00 AM PST 4 CROWN [...]
--- OUTSIDE RECORDS SUMMARY | 2024-09-29 10:09 | XMS_ITS | Clinical Summary ---
Author Organization [facility] Address [address] [place] [address] Care Team Providers Care Allergist/Immunologist Physician Name Role Phone Unavailable Primary Care Provider [...]
== END 2024-09-29 09:08 | disposition home or self-care (01) ==
PROVIDERS: PCP Emergency Medicine; Visit Provider Emergency Medicine
DX: R05.3 Chronic cough (principal); J90 Pleural effusion, not elsewhere classified
CPT/HCPCS: 71046

== ENCOUNTER 2024-10-17 09:32 | Outpatient (CLI) | payer MEDICARE, SELFPAY ==
--- NOTE | ~2024-10-17 | MM_ITS ---
EXAMINATION: MM screening ayde BI w tia HISTORY: Screening TECHNIQUE: Craniocaudal and mediolateral oblique 3-D tomosynthesis images were obtained and synthetic 2-D images were generated. CAD analysis was submitted and interpreted. COMPARISON: Comparison to multiple prior studies sequentially, with oldest reviewed study dated 04/11. BREAST PARENCHYMAL COMPOSITION: Not dense: There are scattered areas of fibroglandular density. FINDINGS: There is no evidence of suspicious mass, calcification, or architectural distortion to sugg est malignancy in either breast. There has been no suspicious interval change. IMPRESSION: 1. No mammographic evidence of malignancy. 2. Recommend routine screening mammography in one year. BI-RADS Category 1: Negative Reviewed, dictated and finalized at location A.
--- OUTSIDE RECORDS SUMMARY | 2024-10-17 10:26 | XMS_ITS | Clinical Summary ---
Author Organization [facility] [place] [address] [place] [address] Care Team Providers Care Maintenance Supervisor 2Nd Shift Name Role Phone Unavailable Primary Care Provider [...]
--- OUTSIDE RECORDS SUMMARY | 2024-10-17 10:26 | XMS_ITS | Encounter Summary ---
Author Organization [facility] Address [address] [place] [address] Care Team Providers Care Tandem Mill Operator Name Role Phone Unavailable Primary Care Provider Unavailabl e Prior Encounters Date Type Department Care Team Description 07/31/2019 Converted CPS Chart Documents [facility] [phone] Maura Giles, [facility] [address] [place] [address] <No scans attached> 07/31/2019 Converted 13x Documents [facility] [phone] Maura Giles, [facility] [address] [place] [address] <No scans attached> Plan of [...] 2 ENDODONTIC THERAPY, MOLAR TOOTH (EXCLUDING FINAL HOLINESS) Routine 07/25/2012 12:00 AM PST 30 PONTIC [...] 3 ENDODONTIC THERAPY, MOLAR TOOTH (EXCLUDING FINAL HOLINESS) Routine 07/25/2012 12:00 AM PST 31 ENDODONTIC THERAPY, MOLAR TOOTH (EXCLUDING FINAL HOLINESS) Routine 07/25/2012 12:00 AM PST 4 CROWN [...]
== END 2024-10-17 09:33 | disposition home or self-care (01) ==
LOC: ANHIMG 09:34
PROVIDERS: PCP Emergency Medicine; Visit Provider Emergency Medicine
DX: Z12.31 Encounter for screening mammogram for malignant neoplasm of breast (principal)
CPT/HCPCS: 77063; 77067

== ENCOUNTER 2024-11-22 07:34 | Outpatient (CLI) | payer MEDICARE, SELFPAY ==
--- OUTSIDE RECORDS SUMMARY | 2024-11-22 07:39 | XMS_ITS | Clinical Summary ---
Author Organization [facility] [place] Address [address] [place] [address] Care Team Providers Care Geological Manager Name Role Phone Unavailable Primary Care Provider [...]
--- OUTSIDE RECORDS SUMMARY | 2024-11-22 07:39 | XMS_ITS | Patient Health Record ---
Author Organization [facility] [employer] Address [address] [place] [address] Care Team Providers Care Hand Driller Name Role Phone Diego Mina MD Primary Care Provider Unavail able Beatriz Ghotra Unavailable [phone] Unavailable [phone] Migration, Provider Unavailable Unavailable Allergies Allergen (clinical drug ingredient) Drug/Non Drug Allergy documented on EMR Reaction Allergy Type Onset Date Status morphine Morphine Unknown Drug Allergy 09/09/2023 Active vancomycin Vancomycin Unknown Drug Allergy 09/09/2023 Acti ve Reason For Referral No Information Medications Medication SIG (Take, Route, Frequency, Duration) Notes Start Date End Date Status Cefuroxime Axetil 500 MG Oral 09/09/2023 Active Lidocaine 5% External 09/09/2023 Active risperiDONE 1 MG 1 tablet Oral three times a day for 90 days Active Gabapentin 800 MG Oral 09/09/2023 A ctive DULoxetine HCl 60 MG 1 capsule Oral twice a day for 90 days Active HYDROcodone-Acetaminop hen 5-325 MG Oral 09/09/2023 Active Simvastatin 20 MG Oral 09/09/2023 A ctive Furosemide 40 MG Oral 09/09/2023 Ac tive Alendronate Sodium 70 MG Oral 09/09/2023 Active CHOLECALCIFEROL (VITAMIN D3) 50 MCG (2,000 UNIT) CAPSULE *Reorder from [facility] for eRx and Interaction Alerts* 09/09/2023 Active Diclofenac Sodium 1% Transdermal 09/09/2023 Active Azelastine HCl 137 MCG/SPRAY Nasal 09/09/2023 Active Nitrofurantoin Monohyd Macro 100 MG Oral 09/09/2023 Active Metoprolol Tartrate 25 MG Oral 09/09/2023 Active Ergocalciferol 1.25 MG (82282 UT) Oral 09/09/2023 Active Fluticasone Propionate Diskus 50 MCG/ACT Inhalation *Reorder from [facility] for eRx and Interaction Alerts* 09/09/2023 Active Naloxone HCl 4 MG/0.1ML Nasal 09/09/2023 Active metFORMIN HCl 500 MG Oral 09/09/2023 Active Social History Sex Assigned At : Social History Observation Description Sex Assigned At Female Problems Problem Type SNOMED Code ICD Code Onset Dates Problem Status W/U Status Risk Notes Problem 39367607 Major depressive disorder, recurrent, in partial remission (F33.41) Active confirmed Problem Recurrent major depression in full remission (63124578) Major depressive disorder, recurrent, in full remission (F33.42) Active confirmed Vital Signs Heart Rate 80 /min 09/07/2024 Height-cm 154.94 cm 09/07/2024 Blood pressure diastolic 73 mm Hg 09/07/2024 Weight-kg 81.19 kg 09/07/2024 Height 61.00 in 09/07/2024 Blood pressure systolic 123 mm Hg 09/07/2024 Weight 179 lbs 09/07/2024 BMI 33.82 kg/m2 09/07/2024 Encounters Encounter Location Date Provider Diagnosis [facility] [address] [address] 12/01/2023 Provider Migration Major depressive disorder, recurrent, in full remission F33.42 [facility] [address] [address] 02/07/2024 Thena Jad Major depressive disorder, recurrent, in partial remission F33.41 ; 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 and Post-traumatic stress disorder, chronic F43.12 [facility] [address] [place] [address] 07/07/2024 Thena Jad Hypertension, unspecified type 401.9 ; Major depressive disorder, recurrent, in full remission F33.42 ; Post-traumatic stress disorder, chronic F43.12 ; 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 and Benign essential HTN I10 [facility] [address] [place] [address] 09/07/2024 Thena Jad Major depressive disorder, recurrent, in full remission F33.42 ; Post-traumatic stress disorder, chronic F43.12 and Benign essential HTN I10 [place] [address] [address] 11/27/2023 Provider Migration [place] [address] [facility] [address] [address] 11/28/2023 Provider Migration [address] [address] 01/14/2024 Thena Jad Major depressive disorder, recurrent, in full remission F33.[address] [address] 04/19/2024 Thena Jad Major depressive disorder, recurrent, in full remission F33.42 [place] [address] [address] 04/19/2024 Thena Jad Major depressive disorder, recurrent, [...] recurrent, in full remission (ICD-10 - F33.42) 09/07/2024 Major depressive disorder, recurrent, in full remission (ICD-10 - F33.42) 09/07/2024 Post-traumatic stress disorder, chronic (ICD-10 - F43.12) 02/07/2024 Complicated bereavement (ICD-10 - F43.21) 12/01/2023 Major depressive disorder, recurrent, in full remission (ICD-10 - F33.42) 07/07/2024 Major depressive disorder, recurrent, in full remission (ICD-10 - F33.42) 02/07/2024 Post-traumatic stress disorder, chronic (ICD-10 - F43.12) 07/07/2024 Post-traumatic stress disorder, chronic (ICD-10 - F43.12) 09/07/2024 Benign essential HTN (ICD-10 - I10) 07/07/2024 Complicated bereavement (ICD-10 - F43.21) 07/07/2024 Benign essential HTN (ICD-10 - I10) Plan Of Treatment Next Appt Details Provider Name:Beatriz aguiar, 12/11/2024 10:15:00 AM, [facility] [facility] [address], [facility] [address], [place], [address], Insurance Providers Payer Name Payer Address Payer Phone Subscriber Number Group Number Insured Name Patient Relationship to Insured Coverage Start Date Coverage End Date [employer] Medicare Replacement/ Advantage - Hmo [address] [address] [place] [address] [id number] BHANU COULTER Self - patient is the insured Medical (General) History Medical History History ICD Code Problems: Bereavement Chronic post-traumatic stress disorder Diabetic peripheral neuropathy Essential hypertension Recurrent major depression in full remis chang , Surgical History Surgery Date(Month/Year) Partial repair of rotator cuff (75482739 7) Cervical arthrodesis (76881067) Carpal tunnel surgery (27576)
--- OUTSIDE RECORDS SUMMARY | 2024-11-22 07:39 | XMS_ITS | Encounter Summary ---
Author Organization [facility] [place] Address [address] [place] [address] Care Team Providers Care Patternmaker Metal Bench Name Role Phone Unavailable Primary Care Provider Unavailabl e Prior Encounters Date Type Department Care Team Description 07/31/2019 Converted CPS Chart Documents [facility] [phone], [facility] [address] [place] [address] <No scans attached> 07/31/2019 Converted 13x Documents [facility] [phone], [facility] [address] [place] [address] <No scans attached> Plan of [...] 2 ENDODONTIC THERAPY, MOLAR TOOTH (EXCLUDING FINAL CHEONDOISM) Routine 07/25/2012 12:00 AM PST 30 PONTIC [...] 3 ENDODONTIC THERAPY, MOLAR TOOTH (EXCLUDING FINAL CHEONDOISM) Routine 07/25/2012 12:00 AM PST 31 ENDODONTIC THERAPY, MOLAR TOOTH (EXCLUDING FINAL CHEONDOISM) Routine 07/25/2012 12:00 AM PST 4 CROWN [...]
[2024-11-22 08:08] LABS: Alanine Aminotransferase 13 U/L (6-35); Albumin Level 3.9 g/dL (3.5-5.1); Alkaline Phosphatase 52 U/L (38-126); Anion Gap 6 mmol/L (4-12); Aspartate Amino Transferase 22 U/L (14-36); Bilirubin,Total 0.4 mg/dL (0.2-1.3); Blood Urea Nitrogen 16 mg/dL (7-17); Calcium 9.4 mg/dL (8.4-10.2); Carbon Dioxide 28 mmol/L (22-30); Chloride 108 mmol/L (98-107); Cholesterol 173 mg/dL (0-200); Estimated Glomerular Filt Rate 59; Glucose 113 mg/dL (65-110); HDL Direct 56 mg/dL; Potassium 3.7 mmol/L (3.4-5.0); Sodium 142 mmol/L (137-145); Triglycerides 205 mg/dL (<150)
[2024-11-22 08:18] LABS: LDL Cholesterol Direct 64 mg/dL
[2024-11-22 09:11] LABS: Vitamin D 25 Hydroxy 32.3 ng/mL
== END 2024-11-22 07:35 | disposition home or self-care (01) ==
LOC: ANHLAB 07:35
PROVIDERS: PCP Emergency Medicine; Visit Provider Emergency Medicine
DX: E78.5 Hyperlipidemia, unspecified (principal); E55.9 Vitamin D deficiency, unspecified
CPT/HCPCS: 36415; 80053; 80061; 82306

== ENCOUNTER 2024-12-12 08:06 | Outpatient (CLI) | payer MEDICARE, SELFPAY ==
--- OUTSIDE RECORDS SUMMARY | 2024-12-12 08:11 | XMS_ITS | Patient Health Record ---
Author Organization [facility] As [employer] Address [address] [place] [address] Care Team Providers Care Stretcher Drier Operator Name Role Phone Diego Mina MD Primary Care Provider Unavail able Beatriz Ghotra Unavailable [phone] Unavailable [phone] Allergies Allergen (clinical drug ingredient) Drug/Non Drug [...] 50 MCG (2,000 UNIT) CAPSULE *Reorder from [employer] for eRx and Interaction Alerts* 09/09/2023 Active Diclofenac Sodium 1% Transdermal 09/09/2023 Active Azelastine HCl 137 MCG/SPRAY Nasal 09/09/2023 Active Nitrofurantoin Monohyd Macro 100 MG Oral 09/09/2023 Active Metoprolol Tartrate 25 MG Oral 09/09/2023 Active Ergocalciferol 1.25 MG (17221 UT) Oral 09/09/2023 Active Fluticasone Propionate Diskus 50 MCG/ACT Inhalation *Reorder from [employer] for eRx and Interaction Alerts* 09/09/2023 Active Naloxone HCl 4 MG/0.1ML Nasal 09/09/2023 Active metFORMIN HCl 500 MG Oral 09/09/2023 Active Social History Sex Assigned At : Social History Observation Description Sex Assigned At Female Problems Problem Type SNOMED Code ICD Code Onset Dates Problem Status W/U Status Risk Notes Problem 93699542 Major depressive disorder, recurrent, in partial remission (F33.41) Active confirmed Problem Major depressive disorder, recurrent, in full remission (F33.42) Active confirmed Vital Signs Heart Rate 80 /min 09/07/2024 Height-cm 154.94 cm 09/07/2024 Blood pressure diastolic 73 mm Hg 09/07/2024 Weight-kg 81.19 kg 09/07/2024 Height 61.00 in 09/07/2024 Blood pressure systolic 123 mm Hg 09/07/2024 Weight 179 lbs 09/07/2024 BMI 33.82 kg/m2 09/07/2024 Encounters Encounter Location Date Provider Diagnosis [facility] [employer] [facility] [address] [address] 12/11/2024 Beatriz Ghotra [facility] [employer] [facility] [address] [address] 02/07/2024 Thena Jad Major depressive disorder, recurrent, in partial remission F33.41 ; 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 and Post-traumatic stress disorder, chronic F43.12 [facility] [employer] [facility] [address] [address] 07/07/2024 Thena Jad Hypertension, unspecified type 401.9 ; Major depressive disorder, recurrent, in full remission F33.42 ; Post-traumatic stress disorder, chronic F43.12 ; 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 and Benign essential HTN I10 [facility] [employer] [facility] [address] [place] [address] 09/07/2024 Thena Jad Major depressive disorder, recurrent, in full remission F33.42 ; Post-traumatic stress disorder, chronic F43.12 and Benign essential HTN I10 [facility] [address] [facility] [address] [place] [address] 01/14/2024 Thena Jad Major depressive disorder, recurrent, in full remission F33.42 [place] [address] [facility] [address] [facility] [address] [place] [address] 04/19/2024 Thena Jad Major depressive disorder, recurrent, in full remission F33.42 [place] [address] [facility] [address] [facility] [address] [place] [address] 04/19/2024 Thena Jad Major depressive disorder, recurrent, [...] F43.12) 02/07/2024 Complicated bereavement (ICD-10 - F43.21) 07/07/2024 Major depressive disorder, recurrent, in full remission (ICD-10 - F33.42) 02/07/2024 Post-traumatic stress disorder, chronic (ICD-10 - F43.12) 07/07/2024 Post-traumatic stress disorder, chronic (ICD-10 - F43.12) 09/07/2024 Benign essential HTN (ICD-10 - I10) 07/07/2024 Complicated bereavement (ICD-10 - F43.21) 07/07/2024 Benign essential HTN (ICD-10 - I10) Plan Of Treatment No Information Insurance Providers Payer Name Payer Address Payer Phone Subscriber Number Group Number Insured Name Patient Relationship to Insured Coverage Start Date Coverage End Date [employer] Medicare Replacement/ Advantage - Hmo [address] [address] [place] [address] [id number] BHANU COULTER Self - patient is the insured Medical (General) History Medical History History ICD Code Problems: Bereavement Chronic post-traumatic stress disorder Diabetic peripheral neuropathy Essential hypertension Recurrent major depression in full remis chang , Surgical History Surgery Date(Month/Year) Partial repair of rotator cuff (99219887 7) Cervical arthrodesis (68107272) Carpal tunnel surgery (37398)
--- OUTSIDE RECORDS SUMMARY | 2024-12-12 08:12 | XMS_ITS ---
Author Organization [facility] [employer] [facility] Address [facility] [address] [facility] [address] [place] [address] Care Team Providers Care Campus Ambassador Name Role Phone Diego Mina MD Primary Care Provider Beatriz Cornell Unavailable [phone] PT Social History Sex Assigned At : Social History Observation Description Sex Assigned At Female Encounters Encounter Location Date Provider Diagnosis [address] [address] 12/11/2024 Beatriz Ghotra Plan Of Treatment No Information Progress Notes * JOEL COULTEROB:1950 (74 yo F)Acc No.[id number]:12/11/2024 Change of providers Patient: BHANU WAN Provider: Daniel Ghotra :1950 A ge:74 Y S ex:Female Date:12/11/2024 Address:[facility] [place] [address] Pcp:Diego Mina MD Subjective: * Chief Complaints: * [address] * Medical History: Objective: * Vitals: Assessment: Plan: * Treatment: * Billing Information: * Visit Code: * Procedure Codes: * Electronic signature of Parvez Ghotra on 12/12/2024 at 08:11 AM CDT Sign off status: Pending * Provider: Daniel Ghotra Date: 12/11/2024 Generated for Hrapal zimmer/Lv/eTransmitting on: 12/12/2024 08:11 AM CDT
--- OUTSIDE RECORDS SUMMARY | 2024-12-12 08:12 | XMS_ITS | Clinical Summary ---
Author Organization [facility] [place] [address] [place] [address] Care Team Providers Care Foxpro Developer Name Role Phone Unavailable Primary Care Provider [...]
--- OUTSIDE RECORDS SUMMARY | 2024-12-12 08:12 | XMS_ITS | Encounter Summary ---
Author Organization [facility] [place] Address [address] [place] [address] Care Team Providers Care Statement Clerks Supervisor Name Role Phone Unavailable Primary Care Provider Unavailabl e Prior Encounters Date Type Department Care Team Description 07/31/2019 Converted CPS Chart Documents [facility] [address], [facility] [address] [place] [address] <No scans attached> 07/31/2019 Converted 13x Documents [facility] [address], [facility] [address] [place] [address] <No scans attached> Plan of [...] 2 ENDODONTIC THERAPY, MOLAR TOOTH (EXCLUDING FINAL BAPTISM) Routine 07/25/2012 12:00 AM PST 30 PONTIC [...] 3 ENDODONTIC THERAPY, MOLAR TOOTH (EXCLUDING FINAL BAPTISM) Routine 07/25/2012 12:00 AM PST 31 ENDODONTIC THERAPY, MOLAR TOOTH (EXCLUDING FINAL BAPTISM) Routine 07/25/2012 12:00 AM PST 4 CROWN [...]
--- NOTE | 2024-12-12 15:22 | WPDSIXMINUTE ---
Six Minute Walk Procedure Procedure Performed Pulmonary Stress Test (6 min walk) Six Minute Walk Six Minute Walk: This is a 6 minute walk test. The test was performed and interpreted in accordance with the 2014 ERS/ATS task force guidelines. Of note, the last 2 minutes the patient used to wheeled walker due to back pain. Findings: The patient's resting room air oxygen saturation measured by pulse oximetry was 95%, the heart rate was 90 bpm, and the modified Thanh dyspnea score was 0. Patient ambulated for 213 meters and oxygen saturation remained 91 to 94%. At the end of the study the heart rate was 112 bpm and the modified Thanh dyspnea score was 0. The patient did not qualify for supplemental oxygen at rest or with ambulation. There are no prior studies for comparison.
--- NOTE | 2024-12-12 15:24 | WPDPFTINT ---
PFT Procedure Performed PFT Procedure Performed Spirometry with Pre/Post Bronchodilator Plethysmography (Lung Vol) Diffusing Cap (DLCO) Flow Vol Loop PFT Interpretation This is a pulmonary function test with pre and post-bronchodilator spirometry, plethysmography and diffusing capacity. The test was performed and results interpreted in accordance with the 2019 and 2005 ATS/ERS Task Force guidelines respectively using the Global Lung Function Initiative-2012 reference equations. Patient demonstrated good effort and cooperation. Reproducibility criteria were met. The quality of the pre bronchodilator spirometry maneuver was Grade A and post bronchodilator spirometry maneuver was Grade A. Findings: Spirometry: The contour the inspiratory and expiratory flow tracing are normal. The pre bronchodilator FVC is 1.90 L, 76% predicted. The pre bronchodilator FEV1 is 1.34 L, 69% predicted. The pre bronchodilator FEV1: FVC ratio 70%. The post bronchodilator FVC is 1.89 L, representing a 1% decrease. The post bronchodilator FEV1 is 1.37 L, representing a 3% increase. The post bronchodilator FEV1: FVC ratio is 73%. Plethysmography: The total lung capacity is 4.01 L, 87% predicted. The functional residual capacity is 2.42 L, 92% predicted. The residual volume is 2.12 L, 102% predicted. Diffusing capacity: The diffusing capacity unadjusted for hemoglobin and carboxyhemoglobin is 10.0, 53% predicted. The diffusing capacity adjusted for alveolar volume is 3.03, 69% predicted. Impression: The FEV1 is less than 80% predicted and the FEV1: FVC ratio is greater than the lower limit of normal consistent with Preserved Ratio Impaired Spirometry (PRISm) with a normal FVC. The spirometry is normal without evidence of an obstructive abnormality. There is no significant improvement after inhaling a single dose of albuterol. The lung volumes are normal. The diffusing capacity unadjusted for hemoglobin and carboxyhemoglobin is moderately decreased and remains mildly decreased when adjusted for alveolar volume. There are no prior studies for comparison
== END 2024-12-12 08:07 | disposition home or self-care (01) ==
PROVIDERS: PCP Emergency Medicine; Visit Provider Nurse Practitioner Family
DX: R06.09 Other forms of dyspnea (principal); R05.9 Cough, unspecified
CPT/HCPCS: 94060; 94618; 94726; 94729

== ENCOUNTER 2025-02-12 08:38 | Outpatient (CLI) | payer MEDICARE, SELFPAY ==
--- NOTE | ~2025-02-12 | XR_ITS ---
XR chest 2V 02/12/2025 08:55 Indication: Dyspnea. Cough and shortness of breath. Procedure: 2 view chest Comparison: Comparison to multiple prior studies sequentially, with oldest reviewed study dated 10/26. Findings: Small pleural effusions. Cardiomegaly. Bibasilar infiltrates may represent atelectasis or p neumonia. There is atherosclerosis of the aorta. There is apical pleural thickening/scarring unchange d. There is thoracic spondylosis with accentuated kyphosis. Impression: 1: Bibasilar infiltrates may represent atelectasis or pneumonia. No significant change. 2: Small pleural effusions. Reviewed, dictated and finalized at location A. Impression: 1: Bibasilar infiltrates may represent atelectasis or pneumonia. No significant change. 2: Small pleural effusions.
--- OUTSIDE RECORDS SUMMARY | 2025-02-12 08:43 | XMS_ITS | Clinical Summary ---
Author Organization [facility] Address [address] [place] [address] Care Team Providers Care Mothercraft Nurse Name Role Phone Unavailable Primary Care Provider [...]
--- OUTSIDE RECORDS SUMMARY | 2025-02-12 08:43 | XMS_ITS | Patient Health Record ---
Author Organization [facility] [employer] Address [address] [place] [address] Care Team Providers Care Campaign Specialist Name Role Phone Diego Mina MD Primary Care Provider Unavail able Beatriz Ghotra Unavailable [phone] Unavailable [phone] Parminder Gerard Unavailable [phone] Allergies Allergen (clinical drug ingredient) Drug/Non Drug Allergy documented on EMR Reaction Allergy Type Onset Date Status morphine Morphine Unknown Drug Allergy 09/09/2023 Active Penicillin Unknown Drug Allergy Active vancomycin Vancomycin Unknown Drug Allergy 09/09/2023 Acti ve Results Component Value Reference Range Notes UDT Reviewed date:12/18/2024 09:56:15 AM Interpretation: Performing Lab: Notes/Report: THC n 0 - 50 ng/ml Cocaine n 0 - 300 ng/ml Amphetamine n 0 - 1000 ng/ml Buprenorphine (BUP) n 0 - 10 ng/ml Secobarbital (Bar) n 0 - 300 ng/ml Oxazepam (BZO) n 0 - 300 ng/ml 8-wsdjtkqdor-2,3-hcndccqx-0,3-diphenylpyrrolidine (VIGNESH P) n 0 - 300 ng/ml Methamphetamine (MET) n 0 - 1000 ng/ml Methylenedioxymethamphetamine (MDMA) n 0 - 500 ng/ml Morphine (MOP 300/KGV1718) n 0 - 300 ng/ml Methadone (MTD) n 0 - 300 ng/ml Phencyclidine (PCP) n 0 - 25 ng/ml Nortriptyline (TCA) n 0 - 1000 ng/ml Oxycodone feint 0 - 300 ng/ml x n 0 - 300 ng/ml Reason For Referral No Information Medications Medication SIG (Take, Route, Frequency, Duration) Notes Start Date End Date Status Triamcinolone Acetonide 0.1 % External; Duration: 25 Days Active HYDROcodone-Acetamino phen 5-325 MG Oral; Duration: 14 Days Active metFORMIN HCl 500 MG Oral 09/09/2023 Not-Taking Azelastine HCl 137 MCG/SPRAY Nasal 09/09/2023 Not-Taking Metoprolol Tartrate 25 MG Oral 09/09/2023 Active Ergocalciferol 1.25 MG (18384 UT) 1 capsule Oral weekly 09/09/2023 Active Gabapentin 800 MG 1 tablet Oral 3 times a day 09/09/2023 Active risperiDONE 1 MG 1 tablet Oral three times a day; Duration: 30 days Active Alendronate Sodium 70 MG Oral 09/09/2023 Active DULoxetine HCl 60 MG 1 capsule Oral twice a day; Duration: 30 days Active Naloxone HCl 4 MG/0.1ML as directed Nasal daily As needed 09/09/2023 Active Simvastatin 20 MG TAKE 1 TABLET BY MOUTH DAILY Oral; Duration: 90 Days Active risperiDONE 1 MG 1 tablet Oral three times a day; Duration: 30 days Active Nitrofurantoin Monohyd Macro 100 MG Oral 09/09/2023 Not-Filiberto ing DULoxetine HCl 60 MG 1 capsule Oral twice a day; Duration: 30 days Active Furosemide 40 MG 1 tablet Oral daily As needed 09/09/2023 Not-Taking Fluticasone Propionate Diskus 50 MCG/ACT Inhalation *Reorder from [employer] for eRx and Interaction Alerts* 09/09/2023 Not-Taking Social History Tobacco Use: Social History Observation Description Date Details (start date - stop date) Current Smoker NA - NA Sex Assigned At : Social History Observation Description Sex Assigned At Female Household Question Answer Notes Marital status: Number of adults in household: 1 Level of education: finished high school 2 years of college Tobacco Control (Standard) Question Answer Notes Tobacco use: Current smoker How often do you smoke cigarettes? Every day How many cigarettes a day do you smoke? 6-10 Are you interested in quitting? Thinking about q uitting AUDIT-C (Standard) Question Answer Notes Did you have a drink containing alcohol in the p ast year? No Points 0 Interpretation Negative Problems Problem Type SNOMED Code ICD Code Onset Dates Problem Status W/U Status Risk Notes Problem Recurrent major depression in remission (20873104) Major depressive disorder, recurrent, in partial remission (F33.41) Active confirmed Problem Recurrent major depression in full remission (06600543) Major depressive disorder, recurrent, in full remission (F33.42) Active confirmed Problem Posttraumatic stress disorder (28804561) Post-traumatic stress disorder, chronic (F43.12) Active confirmed Vital Signs Heart Rate 85 /min 12/18/2024 Height-cm 154.94 cm 12/18/2024 Blood pressure diastolic 78 mm Hg 12/18/2024 Weight-kg 78.02 kg 12/18/2024 Height 61.00 in 12/18/2024 Blood pressure systolic 125 mm Hg 12/18/2024 Weight 172 lbs 12/18/2024 BMI 32.5 kg/m2 12/18/2024 Encounters Encounter Location Date Provider Diagnosis [facility] [employer] [place] [address] [facility] [address] [address] 07/07/2024 Thena Jad Hypertension, unspecified type 401.9 ; Major depressive disorder, recurrent, in full remission F33.42 ; Post-traumatic stress disorder, chronic F43.12 ; 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 and Benign essential HTN I10 [employer] [place] [address] [address] 09/07/2024 Thena Jad Major depressive disorder, recurrent, in full remission F33.42 ; Post-traumatic stress disorder, chronic F43.12 and Benign essential HTN I10 [employer] [facility], [address] [facility] [address] [address] 12/18/2024 Parminder Gerard Negative depression screening Z13.31 ; Major depressive disorder, recurrent, in full remission F33.42 ; Nicotine use Z72.0 and Post-traumatic stress disorder, chronic F43.12 [employer] [facility] [address] [address] 04/19/2024 Thena Jad Major depressive disorder, recurrent, in full remission F33.42 [facility] [employer] [place] [address] [facility] [address] [address] 04/19/2024 Thena Jad Major depressive disorder, recurrent, in full remission F33.42 Assessments Encounter Date Diagnosis (ICD Code) Assessment Notes Treatment Notes Treatment Clinical Notes Section Notes 04/19/2024 Major depressive disorder, recurrent, in full remission (ICD-10 - F33.42) 04/19/2024 Major depressive disorder, recurrent, in full remission (ICD-10 - F33.42) 12/18/2024 Major depressive disorder, recurrent, in full remission (ICD-10 - F33.42) 12/18/2024 Negative depression screening (ICD-10 - Z13.31) 09/07/2024 Major depressive disorder, recurrent, in full remission (ICD-10 - F33.42) 09/07/2024 Post-traumatic stress disorder, chronic (ICD-10 - F43.12) 07/07/2024 Hypertension, unspecified type (ICD9-CM - 401.9) 12/18/2024 Nicotine use (ICD-10 - Z72.0) 07/07/2024 Major depressive disorder, recurrent, in full remission (ICD-10 - F33.42) 09/07/2024 Benign essential HTN (ICD-10 - I10) 12/18/2024 Post-traumatic stress disorder, chronic (ICD-10 - F43.12) 07/07/2024 Post-traumatic stress disorder, chronic (ICD-10 - F43.12) 07/07/2024 Complicated bereavement (ICD-10 - F43.21) 07/07/2024 Benign essential HTN (ICD-10 - I10) 12/18/2024 Other Mild Cognitive Impairment Assessment: Patient scored 22 on a cognitive assessment (likely SLUMS), indicating mild cognitive impairment. Patient reports noticing increased forgetfulness over the past 2 weeks, including difficulty recalling information she feels she should know. Has been on risperidone 3mg for approximately 5 years, first prescribed by Dr. Quesada then by Dr. Street. Plan: - Continue risperidone - Recommend cognitive exercises (e.g., Sudoku, word searches, puzzles) to maintain cognitive function - Monitor for further cognitive changes Tobacco Use Assessment: Patient currently smokes 0.5 packs per day, having started at age 67. Expresses interest in smoking cessation and reports using nicotine gum as a substitute. Plan: - Encourage continued use of nicotine replacement therapy as a smoking cessation aid - Provide smoking cessation counseling and support MDD-remission PHQ-9: 1, BDI: 4 The note is transcribed using speech recognition software. It is a reflection of a visit with the patient. It might have some inaccuracy, including medication names and transcribing errors, though efforts have been made to correct them. Plan Of Treatment Next Appt Details Provider Name:Beatriz aguiar, 03/20/2025 10:15:00 AM, [address], [address], [place], [address], Insurance Providers Payer Name Payer Address Payer Phone Subscriber Number Group Number Insured Name Patient Relationship to Insured Coverage Start Date Coverage End Date [employer] Medicare Replacement/ Advantage - Hmo [address] [address] [place] [address] [id number] BHANU COULTER Self - patient is the insured Medical (General) History Medical History History ICD Code Problems: Bereavement Chronic post-traumatic stress disorder Diabetic peripheral neuropathy Essential hypertension Recurrent major depression in full remis chang pleural effusions- bilateral hyperlipidemia neuropathy Arthritis chronic back pain Surgical History Surgery Date(Month/Year) Partial repair of rotator cuff (52826806 7) Cervical arthrodesis (49480614) Carpal tunnel surgery (99339) 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
--- OUTSIDE RECORDS SUMMARY | 2025-02-12 08:43 | XMS_ITS ---
Author Organization [facility] [employer] [facility] Address [address] [place] [address] [address] Care Team Providers Care Living Coach Name Role Phone Diego Mina MD Primary Care Provider Beatriz Cornell Unavailable [phone] PT Social History Sex Assigned At : Social History Observation Description Sex Assigned At Female Encounters Encounter [facility] [address] [address] 12/11/2024 Beatriz Ghotra Plan Of Treatment Next Appt Details Provider Name:Beatriz aguiar, 03/20/2025 10:15:00 AM, [address] [facility] [address], [facility] [address], [place], [address], Progress Notes * JOEL COULTEROB:1950 (74 yo F)Acc No.[id number]:12/11/2024 Change of providers Patient: BHANU WAN Provider: [place] Ghotra :1950 A ge:74 Y S ex:Female Date:12/11/2024 Address[facility] [address], [facility] [address], [facility] Pcp:Diego Mina MD Subjective: * Chief Complaints: * [address] * Medical History: Objective: * Vitals: Assessment: Plan: * Treatment: * Billing Information: * Visit Code: * Procedure Codes: * Electronic signature of Parvez Ghotra on 02/12/2025 at 08:43 AM CDT Sign off status: Pending * Provider: [place] Ghotra Date: 0 12/11/2024 Generated for Harpal zimmer/Lv/Adrian on: 0 02/12/2025 08:43 AM CDT
--- OUTSIDE RECORDS SUMMARY | 2025-02-12 08:43 | XMS_ITS | Encounter Summary ---
Author Organization [facility] Address [address] [place] [address] Care Team Providers Care Manager Search Engine Name Role Phone Unavailable Primary Care Provider Unavailabl e Prior Encounters Date Type Department Care Team Description 07/31/2019 Converted CPS Chart Documents [facility] [address] [place] [address] <No scans attached> 07/31/2019 Converted 13x Documents [facility] [address] [place] [address] <No scans attached> Plan of [...] BY REPORT Routine 08/23/2012 12:00 AM PST OS CONSULT Routine 08/16/2012 12:00 AM PST 29 EXTRACTION, ERUPTED TOOTH REQUIRING [...] 2 ENDODONTIC THERAPY, MOLAR TOOTH (EXCLUDING FINAL HINDU) Routine 07/25/2012 12:00 AM PST 30 PONTIC [...] 3 ENDODONTIC THERAPY, MOLAR TOOTH (EXCLUDING FINAL HINDU) Routine 07/25/2012 12:00 AM PST 31 ENDODONTIC THERAPY, MOLAR TOOTH (EXCLUDING FINAL HINDU) Routine 07/25/2012 12:00 AM PST 4 CROWN [...]
== END 2025-02-12 08:39 | disposition home or self-care (01) ==
PROVIDERS: PCP Emergency Medicine; Visit Provider Nurse Practitioner Family
DX: R06.09 Other forms of dyspnea (principal); J90 Pleural effusion, not elsewhere classified; R91.8 Other nonspecific abnormal finding of lung field
CPT/HCPCS: 71046

== ENCOUNTER 2025-02-22 09:01 | Inpatient (IN) | payer MEDICARE, SELFPAY ==
[2025-02-22] VITALS (18 sets, daily range): BP systolic 124–165; BP diastolic 68–99; PULSE 103–164; RESP 14–28; TEMP 36.8–36.9; O2SAT 90–96; BMI 29.7
--- NOTE | ~2025-02-22 | CT_ITS ---
EXAMINATION: CTA chest PE protocol DATE: 02/22/2025 10:51 CDT INDICATION: Palpitations. Atrial fibrillation. TECHNIQUE: Computed tomographic angiography (CTA) of the chest was performed with 100 mL Omnipaque-35 0 intravenous contrast. The dose-length product was 441.56 mGy-cm. Maximum intensity projection 3D-re constructions of the aorta and other arteries were constructed by the technologist on a separate work station. COMPARISON: 09/02/2017 FINDINGS: Cervical hardware. There is a mildly enlarged 1.4 cm subcarinal lymph node similar to the study from 09/02/2017. There ar e a few additional nonenlarged mediastinal and hilar lymph nodes. Several new low-density lesions scattered throughout the liver, the largest measures 1.5 cm in the ri ght lobe of the liver. A Liver mass MRI is recommended. There is a too small to characterize low-attenuation lesion in the right kidney. Indeterminate 2.3 cm left adrenal nodule. An adrenal mass MRI is recommended. Heart is moderately enlarged. There are coronary artery calcifications. Thoracic aorta is not aneurysmal. Mild to moderate discredit disease in the thoracic aorta. Small left-sided pleural effusion. Bones appear osteopenic. Multilevel degenerative change in the visualized spine. Visualized tracheobronchial tree is patent. Tiny right-sided pleural effusion. Mild biapical scarring. There are a few small groundglass and patchy opacities in both lungs most pro minent in the lower lobes. IMPRESSION: 1. There are a few small groundglass and patchy opacities in both lungs most prominent in the lower l obes. Differential includes but is not limited to atelectasis/scarring or infiltrates. 2. Small left-sided pleural effusion. Tiny right-sided pleural effusion. 3. Several new low-density indeterminate lesions scattered throughout the liver, the largest measures 1.5 cm in the right lobe of the liver. A Liver mass MRI is recommended. 4. Indeterminate 2.3 cm left adrenal nodule. An adrenal mass MRI is recommended. Reviewed, dictated and finalized at location A. IMPRESSION: 1. There are a few small groundglass and patchy opacities in both lungs most pr ominent in the lower lobes. Differential includes but is not limited to atelect asis/scarring or infiltrates. 2. Small left-sided pleural effusion. Tiny right-sided pleural effusion. 3. Several new low-density indeterminate lesions scattered throughout the liver , the largest measures 1.5 cm in the right lobe of the liver. A Liver mass MRI is recommended. 4. Indeterminate 2.3 cm left adrenal nodule. An adrenal mass MRI is recommended .
--- NOTE | ~2025-02-22 | XR_ITS ---
EXAMINATION: XR chest 1V portable DATE: 02/22/2025 09:53 INDICATION: Increased heart rate TECHNIQUE: A single portable AP upright frontal image of the chest was obtained COMPARISON: Chest radiograph dated 02/12/2025 FINDINGS: Cervical hardware is noted. Confluent opacity in the lower third of the left hemithorax which has slightly increased in size. Dif ferential includes a combination of pleural fluid with adjacent atelectasis and/or consolidation. An underlying mass is possible. Recommend follow-up to resolution. Consider a chest CT for further asses sment. Small patchy opacities in the right lower lung. Differential includes atelectasis or infiltrates. No pneumothorax. No free air under the diaphragm. IMPRESSION: 1. Confluent opacity in the lower third of the left hemithorax which has slightly increased in size. Differential includes a combination of pleural fluid with adjacent atelectasis and/or consolidation. An underlying mass is possible. Recommend follow-up to resolution. Consider a chest CT for further as sessment. 2.Small patchy opacities in the right lower lung. Differential includes atelectasis or infiltrates. Reviewed, dictated and finalized at location A. IMPRESSION: 1. Confluent opacity in the lower third of the left hemithorax which has slight ly increased in size. Differential includes a combination of pleural fluid with adjacent atelectasis and/or consolidation. An underlying mass is possible. Rec ommend follow-up to resolution. Consider a chest CT for further assessment. 2.Small patchy opacities in the right lower lung. Differential includes atelect asis or infiltrates.
--- OUTSIDE RECORDS SUMMARY | 2025-02-22 09:13 | XMS_ITS | Patient Health Record ---
Author Organization [facility] [employer] Address [address] [place] [address] Care Team Providers Care Rotary Surface Grinder Name Role Phone Diego Mina MD Primary Care Provider Unavail able Beatriz Ghotra Unavailable [phone] Unavailable [phone] Parminder Gerard Unavailable [phone] Allergies Allergen (clinical drug ingredient) Drug/Non Drug [...] Oxazepam (BZO) n 0 - 300 ng/ml 8-mcozbpqsos-5,3-vyoswcnt-4,3-diphenylpyrrolidine (VIGNESH P) n 0 - 300 ng/ml Methamphetamine (MET) n 0 - 1000 ng/ml Methylenedioxymethamphetamine (MDMA) n 0 - 500 ng/ml Morphine (MOP 300/NBB4055) n 0 - 300 ng/ml Methadone (MTD) [...] MG Oral 09/09/2023 Active Ergocalciferol 1.25 MG (86172 UT) 1 capsule Oral weekly 09/09/2023 Active [...] Propionate Diskus 50 MCG/ACT Inhalation *Reorder from [employer] for eRx and Interaction Alerts* 09/09/2023 Not-Taking [...] Notes Problem Recurrent major depression in remission (75127820) Major depressive disorder, recurrent, in partial remission (F33.41) Active confirmed Problem Recurrent major depression in full remission (63409965) Major depressive disorder, recurrent, in full remission (F33.42) Active confirmed Problem Posttraumatic stress disorder (69298435) Post-traumatic stress disorder, chronic (F43.12) Active confirmed Vital Signs Heart Rate 85 /min 12/18/2024 Height-cm 154.94 cm 12/18/2024 Blood pressure diastolic 78 mm Hg 12/18/2024 Weight-kg 78.02 kg 12/18/2024 Height 61.00 in 12/18/2024 Blood pressure systolic 125 mm Hg 12/18/2024 Weight 172 lbs 12/18/2024 BMI 32.5 kg/m2 12/18/2024 Encounters Encounter Location Date Provider Diagnosis [facility] [employer] 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 and Benign essential HTN I10 [employer] [place] [address] [address] 09/07/2024 Thena Jad Major depressive disorder, recurrent, in full remission F33.42 ; Post-traumatic stress disorder, chronic F43.12 and Benign essential HTN I10 [employer] [facility], [address] [facility] [address] [address] 12/18/2024 Parmnider Gerard Negative depression screening Z13.31 ; Major depressive disorder, recurrent, in full remission F33.42 ; Nicotine use Z72.0 and Post-traumatic stress disorder, chronic F43.12 [employer] [facility] [address] [address] 04/19/2024 Thena Jad Major depressive disorder, recurrent, in full remission F33.42 [facility] [employer] [place] [address] [facility] [address] [address] 04/19/2024 Thena Jad Major depressive disorder, recurrent, in full remission F33.42 Assessments Encounter Date Diagnosis (ICD Code) Assessment Notes Treatment Notes Treatment Clinical Notes Section Notes 04/19/2024 Major depressive disorder, recurrent, in full remission (ICD-10 - F33.42) 07/07/2024 Hypertension, unspecified type (ICD9-CM - 401.9) 04/19/2024 Major depressive disorder, recurrent, in full remission (ICD-10 - F33.42) 09/07/2024 Major depressive disorder, recurrent, in full remission (ICD-10 - F33.42) 09/07/2024 Post-traumatic stress disorder, chronic (ICD-10 - F43.12) 12/18/2024 Major depressive disorder, recurrent, in full remission (ICD-10 - F33.42) 12/18/2024 Negative depression screening (ICD-10 - Z13.31) 12/18/2024 Nicotine use (ICD-10 - Z72.0) 07/07/2024 Major depressive disorder, recurrent, in full remission (ICD-10 - F33.42) 07/07/2024 Post-traumatic stress disorder, chronic (ICD-10 - F43.12) 12/18/2024 Post-traumatic stress disorder, chronic (ICD-10 - [...] Details Provider Name:Beatriz aguiar, 03/20/2025 10:15:00 AM, [address], [address], [place], [address], Insurance Providers Payer Name Payer Address Payer Phone Subscriber Number Group Number Insured Name Patient Relationship to Insured Coverage Start Date Coverage End Date [employer] Medicare Replacement/ Advantage - Hmo [address] [address] [place] [address] [id number] BHANU COULTER Self - patient is the insured Medical (General) History Medical History History ICD Code Problems: Bereavement Chronic post-traumatic stress disorder Diabetic peripheral neuropathy Essential hypertension Recurrent major depression in full remis chang pleural effusions- bilateral hyperlipidemia neuropathy Arthritis chronic back pain Surgical History Surgery Date(Month/Year) Partial repair of rotator cuff (48586908 7) Cervical arthrodesis (05318660) Carpal tunnel surgery (35734) 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
--- NOTE | 2025-02-22 09:14 | ECG_ITS ---
Test Date: 2025-02-22 09:17:26 Measurements Intervals [place] Rate: 165 P: 0 IA: 0 QRS: -18 QRSD: 71 T: 76 QT: 273 QTc: 453 Interpretive Statements ATRIAL FIBRILLATION WITH RAPID VENTRICULAR RESPONSE WITH ABERRANT CONDUCTION OR VENTRICULAR PREMATURE COMPLEXES NONSPECIFIC ST & T-WAVE ABNORMALITY- HIGH LATERAL LEADS BASELINE ARTIFACT- I, II, III, AVR, AVL, AVF, V1-V3 ABNORMAL ECG No previous ECG available for comparison Electronically Signed On 02-22-2025 09:26:19 CDT by Fransico Ortega D.O.
--- OUTSIDE RECORDS SUMMARY | 2025-02-22 09:14 | XMS_ITS | Clinical Summary ---
Author Organization [facility] Address [address] [place] [address] Care Team Providers Care Employee Benefits Insurance Agent Name Role Phone Unavailable Primary Care Provider [...]
--- OUTSIDE RECORDS SUMMARY | 2025-02-22 09:14 | XMS_ITS | Encounter Summary ---
Author Organization [facility] Health Address [address] [place] [address] Care Team Providers Care Rn Resource Nurse Name Role Phone Unavailable Primary Care Provider Unavailabl e Prior Encounters Date Type Department Care Team Description 07/31/2019 Converted CPS Chart Documents [facility] [address] [place] [address] <No scans attached> 07/31/2019 Converted 13x Documents [facility] [address] [place] [address] <No scans attached> Plan of [...] 2 ENDODONTIC THERAPY, MOLAR TOOTH (EXCLUDING FINAL BUDDHIST) Routine 07/25/2012 12:00 AM PST 30 PONTIC [...] 3 ENDODONTIC THERAPY, MOLAR TOOTH (EXCLUDING FINAL BUDDHIST) Routine 07/25/2012 12:00 AM PST 31 ENDODONTIC THERAPY, MOLAR TOOTH (EXCLUDING FINAL BUDDHIST) Routine 07/25/2012 12:00 AM PST 4 CROWN [...]
--- OUTSIDE RECORDS SUMMARY | 2025-02-22 09:14 | XMS_ITS ---
Author Organization [facility] [employer] [facility] Address [address] [place] [address] [address] Care Team Providers Care Tablet Making Machine Operator Helper Name Role Phone Diego Mina MD Primary Care Provider Beatriz Cornell Unavailable [phone] PT Social History Sex Assigned At : Social History Observation Description Sex Assigned At Female Encounters [facility] [address] [address] 12/11/2024 Beatriz Ghotra Plan Of Treatment Next Appt Details Provider Name:Beatriz aguiar, 03/20/2025 10:15:00 AM, [address] [facility] [address], [facility] [address], [place], [address], Progress Notes * JOEL COULTEROB:1950 (74 yo F)Acc No.[id number]:12/11/2024 Change of providers Patient: BHANU WAN Provider: [place] Ghotra :1950 A ge:74 Y S ex:Female Date:12/11/2024 Address:[address] [place] [address] [address], [facility] [address], [facility] Pcp:Diego Mina MD Subjective: * Chief Complaints: * [address] PT[address] * Medical History: Objective: * Vitals: Assessment: Plan: * Treatment: * Billing Information: * Visit Code: * Procedure Codes: * Electronic signature of Parvez Ghotra on 02/22/2025 at 09:13 AM CDT Sign off status: Pending * Provider: [place] Ghotra Date: 0 12/11/2024 Generated for Harpal zimmer/Lv/Adrian on: 0 02/22/2025 09:13 AM CDT
--- NOTE | 2025-02-22 09:17 | ED_ITS ---
HPI - Recheck/Abnormal Lab/Rx General Chief Complaint: Recheck/Abnormal Lab/Rx Stated Complaint: low bp x 2 days Time Seen by Provider: 02/22/25 09:08 History of Present Illness HPI narrative: Patient is 74 year old female who presents to the ER 2 day history of low blood pressure. She reports she is on metoprolol for AFib and takes her blood pressure regularly at home. Pt reports the last two days her blood pressure has been too low for her to take her metoprolol. She reports she has been ?drinking lots of water and increasing salt intake. Patient reports the lowest blood pressure reading she has noted at home was a systolic of 72. She reports when her blood pressure gets low her atrial fib gets worse. Patient reports she is on Xarelto. She endorses intermittent heart palpitations. Patient denies any recent fevers, but reports she is currently recovering from pneumonia and is on oral steroids. She denies any acute back pain, abdominal pain, or lower extremity swelling. Related Data Home Medications ?Medication ?Instructions ?Recorded ?Confirmed ?Last Taken ?Type duloxetine 60 mg capsule,delayed 60 mg PO BID 12/26/19 01/04/25 10/27/22 History release (Cymbalta) ibuprofen 800 mg tablet See Rx Instructions .Route 10/22/22 01/04/25 10/26/22 History .COMPLEX PRN Pain risperidone 1 mg tablet 1 mg PO QID 10/22/22 01/04/25 09/16/23 History furosemide 40 mg tablet 40 mg PO DAILY PRN Edema 09/16/23 01/04/25 Unknown History metoprolol tartrate 25 mg tablet See Rx Instructions .Route .COMPLEX 07/28/24 01/04/25 Unknown History ipratropium 0.5 mg-albuterol 3 mg 3 ml inhalation Q6H PRN 01/24/25 Unknown History (2.5 mg base)/3 mL nebulization soln Allergies Allergy/AdvReac Type Severity Reaction Status Date / Time erythromycin base Allergy Hives Verified 02/22/25 09:19 Penicillins Allergy Hives Verified 02/22/25 09:19 Review of Systems 2 Review of Systems: All systems reviewed & are unremarkable except as noted in HPI and below PMFSH Past Medical History Medical History Acute on chronic diastolic congestive heart failure Abnormal urinalysis Cough Acute UTI Frequent urinary tract infections Mild pulmonary hypertension Estimated PASP of 46 mmHg on echo in 10/2022. Diastolic dysfunction Echocardiogram on 10/23/2022: normal LV size and function, estimated EF of 55 to 60%, diastolic dysfunction, moderate left atrial enlargement, and mild pulmonary hypertension. Chronic pain syndrome Vitamin D deficiency Type 2 diabetes mellitus Diet-controlled, recent A1c was 6.0. Normocytic anemia Nicotine use Depression with anxiety Kidney stones Shingles Arthritis Gastroesophageal reflux disease Hypertension Hyperlipidemia Chronic obstructive pulmonary disease Urinary tract infection Urinary frequency Dysuria Sinus congestion Surgical History Surgical History History of fusion of cervical spine C4 through C6. History of lithotripsy History of hernia repair History of appendectomy Family History Family History Sibling Family history of blood dyscrasia Family history of malignant neoplasm Family history of seizure disorder Mother Family history of malignant neoplasm, Onset Age: 85 Family history of lymphoma, Onset Age: 85 Family history of atrial fibrillation, Onset Age: 85 Social History Social History Social History: Surrogate medical decision maker: Usha Ashley, granddaughter. Code status: Full code. Smoking packs per day: 0.5 Smoking cigarettes per day: 10.0 Years smoked: 10 Smoking pack-years: 5.00 Smoking status: Current every day smoker Tobacco type: cigarettes Second hand tobacco smoke exposure: Yes Alcohol intake: former Substance use: never Substance use type: does not use Do You Feel Safe in your Home?: Yes Lack of Transportation: No Lack of Food: Sometimes True Current Housing: I Have Housing Concerned About Future Housing: YES Difficulty Paying Gas/Electric Bills: YES Difficulty Paying for Meds: YES Currently Unemployed: No Education: High School Diploma/GED Difficulty w/ Childcare or Family Care: No Living arrangements: alone Spiritual care concerns: No Agree to blood products: Yes Exam 2 Narrative: GENERAL: Ill appearing, well-nourished, non-toxic, in no acute distress. HEAD: Normocephalic, atraumatic. NECK: Supple. No adenopathy, no masses. RESPIRATORY: Airway patent, respirations mildly labored. Coarse RLQ, all other lobes clear to auscultation bilaterally, no other rales, rhonchi, wheezing. CARDIOVASCULAR:Irregular rhythm. Peripheral pulses 2+ and equal bilaterally. ABDOMINAL: Soft, nontender, + distended, no hepatosplenomegaly. Normoactive BS. MUSCULOSKELETAL: Moves all extremities. Strength/ROM intact without gross deformities. SKIN: Warm, dry, normal color. No rashes. NEURO: A&O X3. Speech clear. Cranial nerves II-XII intact. No ataxic movements. PSYCHIATRIC: Flat affect. Normal interaction. Course Vital Signs Vital signs: Vital Signs Temperature 36.9 C 02/22/25 09:15 Pulse Rate 164 H 02/22/25 09:15 Respiratory Rate 22 H 02/22/25 09:15 Blood Pressure 124/73 02/22/25 09:15 Pulse Oximetry 96 02/22/25 09:15 Oxygen Delivery Room Air 02/22/25 09:15 Temperature 36.9 C 02/22/25 09:15 Pulse Rate 120 H 02/22/25 10:51 Respiratory Rate 25 H 02/22/25 10:46 Blood Pressure 165/99 H 02/22/25 10:46 Pulse Oximetry 90 02/22/25 10:46 Oxygen Delivery Room Air 02/22/25 09:15 MDM - Recheck/Abnormal Lab/Rx MDM Narrative Medical decision making narrative: Patient is 74 year old female who presents to the ER 2 day history of low blood pressure. She reports she is on metoprolol for AFib and takes her blood pressure regularly at home. Pt reports the last two days her blood pressure has been too low for her to take her metoprolol. She reports she has been ?drinking lots of water and increasing salt intake. Patient reports the lowest blood pressure reading she has noted at home was a systolic of 72. She reports when her blood pressure gets low her atrial fib gets worse. Patient reports she is on Xarelto. She endorses intermittent heart palpitations. Patient denies any recent fevers, but reports she is currently recovering from pneumonia and is on oral steroids. She denies any acute back pain, abdominal pain, or lower extremity swelling. Labs Ordered: CBC, CMP, PTT, INR, UA, CRP, blood culture, troponin, proBNP Imaging Ordered: Chest x-ray, CTA PE scan Medications Ordered: Metoprolol 5 mg IV x2, 1 L normal saline IV bolus, Lasix 40 mg IV, levofloxacin IV Results: Pt's x-ray indicates 1. Confluent opacity in the lower third of the left hemithorax which has slightly increased in size. Differential includes a combination of pleural fluid with adjacent atelectasis and/or consolidation. An underlying mass is possible. Recommend follow-up to resolution. Consider a chest CT for further assessment. 2.Small patchy opacities in the right lower lung. Differential includes atelectasis or infiltrates. Pt's CT scan indicates 1. There are a few small groundglass and patchy opacities in both lungs most prominent in the lower lobes. Differential includes but is not limited to atelectasis/scarring or infiltrates. 2. Small left-sided pleural effusion. Tiny right-sided pleural effusion. 3. Several new low-density indeterminate lesions scattered throughout the liver, the largest measures 1.5 cm in the right lobe of the liver. A Liver mass MRI is recommended. 4. Indeterminate 2.3 cm left adrenal nodule. An adrenal mass MRI is recommended. Less than 30ml/kg crystalloid bolus was ordered because it would be detrimental or harmful for the patient. The patient has the following condition, Concern for fluid Overload, Heart failure. In place of the 30ml/kg crystalloid bolus, the patient is to receive [NS 10ml/kg bolus (recorded body weight) CRITICAL CARE ADDENDUM: Indication: AFib with RVR, CHF exacerbation, pneumonia, acute kidney injury Time type: intermittent I provided a total of 55 minutes of critical care excluding separately billable procedures. This includes time w/ EMS, initial bedside evaluation, reviewing old records, review of testing done while under my care, discussion w/ the family, nurses, senior solutions workflow consultant and guiding the patient?s care while in the emergency department. Approximate time distribution: 15 minutes ? Initial evaluation, d/w involved parties, attempting to gather old records. 10 minutes ? Documenting medical record 10 minutes ? Review of results (EKGs, labs, imaging) 10 minutes ? Serial repeat bedside evaluation 10 minutes ? Discussing case with multiple providers Diagnosis: a. fib with RVR, pneumonia, urinary tract infection, congestive heart failure exacerbation Consults: 1155-cardiology. Spoke with Eileen Friedman NP, who advised pt could receive a dose of Diltiazem to see if she responds better to this medication. Eileen reports she does not identify any medication that indicates pt has L sided heart failure. She would like pt to remain on Metoprolol also. Results of imaging and lab work shared with patient. It was advised patient be admitted to the hospital for further evaluation and treatment. Patient verbalized understanding and are in agreement with plan. 1145- Spoke with hospitalist, Dr. Ny, who was in agreement with plan for pt to be admitted to the hospital. He advised pt could be admitted to the med/surg floor with telemetry. 1200- Upon further discussion with ED charge nurse, pt will be admitted to the IMU in case she remains in a.fib with RVR and requires further intervention Differential Diagnosis Differential diagnosis: Likely other (Congestive heart failure, AFib with RVR, sepsis, pneumonia, urinary tract infection) Lab Data Attestation: I reviewed the patient's lab results. 02/22/25 09:32 02/22/25 09:32 Labs: Lab Results 02/22/25 02/22/25 Range/Units 09:32 11:05 WBC 11.5 H (4.5-10.0) K/mm3 RBC 4.07 L (4.2-5.4) M/mm3 Hgb 12.4 (12.0-15.0) g/dL Hct 38.5 (37.0-47.0) % MCV 94.6 (80-100) fl MCH 30.5 (26-34) pg MCHC 32.2 (32-36) g/dl RDW 13.9 (11.5-14.5) % Plt Count 347 (150-375) k/mm3 MPV 11.2 H (7.4-10.4) fl Immature Gran % (Auto) 0.6 H (0-0.5) % Neut % (Auto) 90.4 H (45.5-73.1) % Lymph % (Auto) 6.4 L (18.3-44.2) % [place] % (Auto) 2.4 L (2.6-8.5) % Eos % (Auto) 0.0 (0-4.4) % Baso % (Auto) 0.2 (0.2-1.2) % Lymph # (Auto) 0.73 L (0.9-3.2) K/mm3 [place] # (Auto) 0.3 (0.1-0.6) K/mm3 Eos # (Auto) 0.0 (0-0.3) K/mm3 Baso # (Auto) 0.0 (0.0-0.1) K/mm3 Abs Immat Gran (auto) 0.07 H (0.00-0.031) K/mm3 Absolute Neuts (auto) 10.4 H (1.3-6.7) K/mm3 Absolute Nucleated RBC 0.000 (0.0-0.012) K/mm3 Nucleated RBC % 0.0 (0.0-0.2) % PT 15.5 H (11.1-14.7) Seconds INR 1.2 APTT 27.6 (22.3-36.8) Seconds Sodium 139 (137-145) mmol/L Potassium 4.2 (3.4-5.0) mmol/L Chloride 107 (98-107) mmol/L Carbon Dioxide 25 (22-30) mmol/L Anion Gap 7 (4-12) mmol/L BUN 26 H D (7-17) mg/dL Creatinine 1.25 H (0.7-1.0) mg/dL Estim Creat Clear Calc 36 ml/min Estimated GFR 42 L (59 - ) Glucose 130 H (65-110) mg/dL Calcium 10.2 (8.4-10.2) mg/dL Total Bilirubin 0.5 (0.2-1.3) mg/dL AST 27 (14-36) U/L ALT 16 (6-35) U/L Alkaline Phosphatase 57 (38-126) U/L Troponin I 0.018 (0.000-0.034) ng/mL NT-Pro-B Natriuret Pep 6470 H (19.9-100) pg/mL Total Protein 6.0 L (6.3-8.2) g/dL Albumin 3.5 (3.5-5.1) g/dL Urine Color Yellow (Yellow) Urine Appearance Clear (Clear) Urine pH 6.5 (5.0-9.0) Ur Specific [place] 1.025 (1.001-1.035) Urine Protein Trace (Negative) mg/dL Urine Glucose (UA) Negative (Negative) mg/dL Urine Ketones Negative (Negative) mg/dL Ur Blood (Man) Negative (Negative) Urine Nitrate Negative (Negative) Urine Bilirubin Negative (Negative) Urine Urobilinogen 0.2 (<2.0) mg/dL Leukocyte Esterase Rfl 1+ H (Negative) DI/UL Urine RBC 0-2 (0-2) /hpf Urine WBC 6-10 H (0-3) /hpf Ur Squamous Epith Cells None seen (Few) /hpf Urine Bacteria None seen /hpf Urine Casts 3-5 Imaging Data Attestation: I personally reviewed and interpreted this imaging study as follows: Radiologist's impression: Impressions Chest X-Ray 02/22/25 10:01 IMPRESSION: 1. Confluent opacity in the lower third of the left hemithorax which has slightly increased in size. Differential includes a combination of pleural fluid with adjacent atelectasis and/or consolidation. An underlying mass is possible. Recommend follow-up to resolution. Consider a chest CT for further assessment. 2.Small patchy opacities in the right lower lung. Differential includes atelectasis or infiltrates. Chest CTA 02/22/25 10:51 IMPRESSION: 1. There are a few small groundglass and patchy opacities in both lungs most prominent in the lower lobes. Differential includes but is not limited to atelectasis/scarring or infiltrates. 2. Small left-sided pleural effusion. Tiny right-sided pleural effusion. 3. Several new low-density indeterminate lesions scattered throughout the liver, the largest measures 1.5 cm in the right lobe of the liver. A Liver mass MRI is recommended. 4. Indeterminate 2.3 cm left adrenal nodule. An adrenal mass MRI is recommended. Critical Care Time Critical Care Time Critical Care Time: Yes Total Critical Care Time: 55 Discharge Plan Discharge Clinical Impression: Atrial fibrillation with rapid ventricular response, Acute exacerbation of CHF (congestive heart failure), Pneumonia, Urinary tract infection, Acute kidney injury Patient Disposition: Still a Patient Condition: Guarded Prognosis Patient Language: Kiswahili Prescriptions: No Action duloxetine [Cymbalta] 60 mg capsule,delayed release(DR/EC) 60 mg PO BID Rx Instructions: TAKE 1 CAPSULE PO BID; cholecalciferol (vitamin D3) 50 mcg (2,000 unit) capsule See Rx Instructions .ROUTE .COMPLEX Qty: 90 3RF Dose Instruction: TAKE 1 CAPSULE BY MOUTH DAILY Rx Instructions: TAKE 1 CAPSULE BY MOUTH DAILY triamcinolone acetonide 0.1 % ointment 1 applic topical TID Qty: 80 0RF albuterol sulfate [Ventolin HFA] 90 mcg/actuation HFA aerosol inhaler 1 - 2 inh inhalation Q4-6H PRN (Reason: shortness of breath or wheezing) Qty: 8.5 5RF risperidone 1 mg tablet 1 mg PO QID Rx Instructions: PT STATES TAKING 3 TID ibuprofen 800 mg tablet See Rx Instructions .ROUTE .COMPLEX PRN (Reason: Pain) Rx Instructions: TAKE 1 TABLET BY MOUTH TWICE DAILY WITH FOOD PRN for back pain furosemide 40 mg tablet 40 mg PO DAILY PRN (Reason: Edema) metoprolol tartrate 25 mg tablet See Rx Instructions .ROUTE .COMPLEX Patient Comments: Rx Instructions: Take 1/2 tab in the AM and 1 tab in the PM gabapentin 800 mg tablet See Rx Instructions .ROUTE .COMPLEX Qty: 360 2RF Dose Instruction: TAKE 1 TABLET BY MOUTH FOUR TIMES DAILY Rx Instructions: TAKE 1 TABLET BY MOUTH FOUR TIMES DAILY simvastatin 20 mg tablet See Rx Instructions .ROUTE .COMPLEX Qty: 90 2RF Dose Instruction: TAKE 1 TABLET BY MOUTH DAILY Rx Instructions: TAKE 1 TABLET BY MOUTH DAILY ipratropium-albuterol 0.5 mg-3 mg(2.5 mg base)/3 mL solution for nebulization 3 ml inhalation Q6H PRN prednisone 10 mg tablet 10 mg PO DIRECTED Qty: 30 0RF Rx Instructions: Take 4 tablets by mouth daily for 3 days, then 3 tablets for 3 days, 2 tablets for 3 days, 1 tablet for 3 days Follow-up/Referrals: Diego Mina MD [Primary Care Provider] -
[2025-02-22] MEDS: METOPROLOL TARTRATE INJ 5 MG/5 ML VIAL IV PUSH ×2 (09:29→10:51)
[2025-02-22 09:38] LABS: Hematocrit 38.5 % (37.0-47.0); Hemoglobin 12.4 g/dL (12.0-15.0); Immature Granulocyte Percent A 0.6 % (0-0.5); Lymphocytes Absolute Auto 0.73 K/mm3 (0.9-3.2); Mean Corpuscular HGB Conc 32.2 g/dl (32-36); Mean Corpuscular Hemoglobin 30.5 pg (26-34); Mean Corpuscular Volume 94.6 fl (80-100); Nucleated Red Blood Cells Absolute Auto 0.000 K/mm3 (0.0-0.012); Nucleated Red Blood Cells Perc 0.0 % (0.0-0.2); Platelet Count Result 347 k/mm3 (150-375); Red Blood Count 4.07 M/mm3 (4.2-5.4); White Blood Count 11.5 K/mm3 (4.5-10.0)
[2025-02-22 09:48] LABS: Alanine Aminotransferase 16 U/L (6-35); Albumin Level 3.5 g/dL (3.5-5.1); Alkaline Phosphatase 57 U/L (38-126); Anion Gap 7 mmol/L (4-12); Aspartate Amino Transferase 27 U/L (14-36); Bilirubin,Total 0.5 mg/dL (0.2-1.3); Blood Urea Nitrogen 26 mg/dL (7-17); Calcium 10.2 mg/dL (8.4-10.2); Carbon Dioxide 25 mmol/L (22-30); Chloride 107 mmol/L (98-107); Estimated CRCL calculation 36 ml/min; Estimated Glomerular Filt Rate 42; Glucose 130 mg/dL (65-110); Potassium 4.2 mmol/L (3.4-5.0); Sodium 139 mmol/L (137-145); Total Protein 6.0 g/dL (6.3-8.2)
[2025-02-22 10:00] LABS: NT Pro B Type Natriuretic Pept 6470 pg/mL (19.9-100); Troponin I 0.018 ng/mL (0.000-0.034)
[2025-02-22 10:18] LABS: INR 1.2; Prothrombin Time 15.5 Seconds (11.1-14.7)
[2025-02-22 10:19] LABS: Partial Thromboplastin Time 27.6 Seconds (22.3-36.8)
[2025-02-22] MEDS: FUROSEMIDE INJ 40 MG/4 ML VIAL IV PUSH (10:50)
[2025-02-22 11:27] LABS: Add Urine Microscopic? YES; Appearance Urine Clear (Clear); Glucose Urine UA Negative (Negative); Leukocyte Esterase Ur 1+ LEU/UL (Negative); Nitrate Urine Negative (Negative); Specific Grav Ur 1.025 (1.001-1.035)
--- NOTE | 2025-02-22 12:27 | ECG_ITS ---
Test Date: 2025-02-22 12:38:46 Measurements Intervals [place] Rate: 103 P: 0 WA: 0 QRS: -25 QRSD: 84 T: 71 QT: 343 QTc: 449 Interpretive Statements ATRIAL FIBRILLATION WITH RAPID VENTRICULAR RESPONSE LEFT VENTRICULAR HYPERTROPHY WITH ST-T CHANGE ANTEROSEPTAL INFARCT, AGE INDETERMINATE BASELINE ARTIFACT- I, II, III ,AVR, AVL, AVF ABNORMAL ECG Compared to ECG 02/22/2025 09:17:26 HEART RATE HAS DECREASED Electronically Signed On 02-22-2025 13:19:36 CDT by Fransico Ortega D.O.
[2025-02-22] MEDS: SODIUM CHLORIDE 0.9% IV 1,000 ML 999 ML IV CONT (12:32)
--- OUTSIDE RECORDS SUMMARY | 2025-02-22 13:18 | XMS_ITS | Encounter Summary ---
Author Organization [facility] Health Address [address] [place] [address] Care Team Providers Care Jumpbasting Lining Baster Name Role Phone Unavailable Primary Care Provider Unavailabl e Prior Encounters Date Type Department Care Team Description 07/31/2019 Converted CPS Chart Documents [facility] [phone] [place] [address] <No scans attached> 07/31/2019 Converted 13x Documents [facility] [phone] [place] [address] <No scans attached> Plan of [...] 2 ENDODONTIC THERAPY, MOLAR TOOTH (EXCLUDING FINAL JUDAISM) Routine 07/25/2012 12:00 AM PST 30 PONTIC [...] 3 ENDODONTIC THERAPY, MOLAR TOOTH (EXCLUDING FINAL JUDAISM) Routine 07/25/2012 12:00 AM PST 31 ENDODONTIC THERAPY, MOLAR TOOTH (EXCLUDING FINAL JUDAISM) Routine 07/25/2012 12:00 AM PST 4 CROWN [...]
--- OUTSIDE RECORDS SUMMARY | 2025-02-22 13:18 | XMS_ITS | Clinical Summary ---
Author Organization [facility] Health Address [address] [place] [address] Care Team Providers Care Window Shade Ring Coverer Name Role Phone Unavailable Primary Care Provider [...]
[2025-02-22 13:53] LABS: CRP < 0.5 mg/dL (<1.0)
[2025-02-22 14:01] LABS: INR 1.2; Prothrombin Time 15.0 Seconds (11.1-14.7)
--- NOTE | 2025-02-22 14:01 | P.HP_ITS ---
H&P: [facility] History of Present Illness Date/Time: 02/22/25 14:01 Chief Complaint: Low BP, Palpitations Narrative: 74 y/o F with PMH of atrial fibrillation, congestive heart failure, mild pulmonary hypertension, diet-controlled diabetes, GERD, hypertension, hyperlipidemia and COPD presents here with hypotension and palpitations. The patient presents here from home for further evaluation of low blood pressure. Due to her history of atrial fibrillation and hypertension she regularly checks her blood pressure at home. She reports over the last 2 days her blood pressure has been reading lower than usual which prompted her to hold her metoprolol. Lowest blood pressure recorded at home had a systolic of 72. She attempted to rectify the situation by increasing her water and salt intake. She reports historically that her blood pressure has been lower when her atrial fibrillation worsens. She is additionally endorsing palpitations. She denies weight gain or lower extremity edema. Of note, the patient was recently diagnosed with pneumonia with doxycycline and a steroid course which were prescribed on 02/14. Initial VS at presentation: 98.4? F, HR 164, R 22, 124/73, and 96% on RA. ED workup showed: WBC 11.5, no anemia, INR 1.2, no significant electrolyte derangements, creatinine 1.25 and GFR 42 (0.94 and GFR 59 on 11/22/24), glucose 130, lactic 1.0, BNP 6470, CRP negative, initial troponin 0.018, and UA showed 1+ leuk esterase and 6-10 WBC with no epithelial cells or bacteria. CXR showed confluent opacity in the lower 3rd of the left hemithorax which is a slightly increased in size, small patchy opacities in the right lower lung. CTA of the chest showed a few small ground-glass and patchy opacities in both lungs more prominent in the lower lungs, small left pleural effusion, tiny right pleural effusion, several low-density indeterminate lesions scattered throughout the liver, indeterminate 2.3 cm left adrenal nodule. Review of Systems Review of Systems: All systems reviewed & are unremarkable except as noted in HPI and below [facility] Past Medical History Medical History (Updated 02/22/25 @ 15:07 by Chelsea Downey, ARTURO) Type 2 diabetes mellitus Diet-controlled, recent A1c was 6.0. Atrial fibrillation Frequent urinary tract infections Mild pulmonary hypertension Estimated PASP of 46 mmHg on echo in 10/2022. Diastolic dysfunction Echocardiogram on 10/23/2022: normal LV size and function, estimated EF of 55 to 60%, diastolic dysfunction, moderate left atrial enlargement, and mild pulmonary hypertension. Chronic pain syndrome Vitamin D deficiency Normocytic anemia Nicotine use Depression with anxiety Kidney stones Shingles Arthritis Gastroesophageal reflux disease Hypertension Hyperlipidemia Chronic obstructive pulmonary disease Sinus congestion Surgical History Surgical History History of fusion of cervical spine C4 through C6. History of lithotripsy History of hernia repair History of appendectomy Family History Family History Sibling Family history of blood dyscrasia Family history of malignant neoplasm Family history of seizure disorder Mother Family history of malignant neoplasm, Onset Age: 85 Family history of lymphoma, Onset Age: 85 Family history of atrial fibrillation, Onset Age: 85 Social History Social History Social History: Surrogate medical decision maker: Usha Ashley, granddaughter. Code status: Full code. Smoking packs per day: 0.5 Smoking cigarettes per day: 10.0 Years smoked: 10 Smoking pack-years: 5.00 Smoking status: Current every day smoker Tobacco type: cigarettes Second hand tobacco smoke exposure: Yes Alcohol intake: former Substance use: never Substance use type: does not use Do You Feel Safe in your Home?: Yes Lack of Transportation: No Lack of Food: Sometimes True Current Housing: I Have Housing Concerned About Future Housing: YES Difficulty Paying Gas/Electric Bills: YES Difficulty Paying for Meds: YES Currently Unemployed: No Education: High School Diploma/GED Difficulty w/ Childcare or Family Care: No Living arrangements: alone Spiritual care concerns: No Agree to blood products: Yes Meds Home Medications and Allergies Home Medications ?Medication ?Instructions ?Recorded ?Confirmed ?Type duloxetine 60 mg capsule,delayed 60 mg PO BID 12/26/19 02/22/25 History release (Cymbalta) ibuprofen 800 mg tablet See Rx Instructions .Route 10/22/22 02/22/25 History .COMPLEX PRN Pain risperidone 1 mg tablet 1 mg PO TID 10/22/22 02/22/25 History metoprolol tartrate 25 mg tablet See Rx Instructions .Route .COMPLEX 07/28/24 01/04/25 History gabapentin 800 mg tablet See Rx Instructions .Route 08/17/24 02/22/25 Rx .COMPLEX #360 tabs simvastatin 20 mg tablet See Rx Instructions .Route 10/11/24 02/22/25 Rx .COMPLEX #90 tabs cholecalciferol (vitamin D3) 50 See Rx Instructions .Route 11/24/24 02/22/25 Rx mcg (2,000 unit) capsule .COMPLEX #90 caps albuterol sulfate 90 mcg/actuation 1 - 2 inh inhalation Q4-6H PRN 01/04/25 02/22/25 Rx aerosol inhaler (Ventolin HFA) shortness of breath or wheezing #8.5 grams ipratropium 0.5 mg-albuterol 3 mg 3 ml inhalation Q6H PRN shortness 01/24/25 02/22/25 History (2.5 mg base)/3 mL nebulization of breath or wheezing soln prednisone 10 mg tablet 10 mg PO DIRECTED #30 tabs 02/14/25 02/22/25 Rx hydrocodone 5 mg-acetaminophen 325 1 tablet PO TID PRN pain (scale 02/22/25 02/22/25 History mg tablet score 4-6) Allergies Allergy/AdvReac Type Severity Reaction Status Date / Time erythromycin base Allergy Hives Verified 02/22/25 09:19 Penicillins Allergy Hives Verified 02/22/25 09:19 Vital Signs Vital Signs - 24 hr 02/22/25 09:15 02/22/25 09:15 02/22/25 09:29 Temperature 98.4 F Pulse Rate 164 H 164 H 153 H Respiratory Rate 22 H Blood Pressure 124/73 Pulse Oximetry 96 Oxygen Delivery Room Air 02/22/25 09:31 02/22/25 09:36 02/22/25 09:45 Temperature Pulse Rate 146 H 127 H 114 H Respiratory Rate 16 20 19 Blood Pressure 135/73 Pulse Oximetry 96 94 93 Oxygen Delivery 02/22/25 09:46 02/22/25 10:04 02/22/25 10:31 Temperature Pulse Rate 111 H 116 H 112 H Respiratory Rate 15 22 H 25 H Blood Pressure 125/93 H Pulse Oximetry 94 92 92 Oxygen Delivery 02/22/25 10:32 02/22/25 10:45 02/22/25 10:46 Temperature Pulse Rate 130 H 120 H 137 H Respiratory Rate 21 H 28 H 25 H Blood Pressure 155/86 H 165/99 H Pulse Oximetry 92 95 90 Oxygen Delivery 02/22/25 10:51 Temperature Pulse Rate 120 H Respiratory Rate Blood Pressure Pulse Oximetry Oxygen Delivery Exam Const: General: comfortable and no acute distress Other: , female, elderly, obese body habitus, nontoxic appearance HENMT: Face/Nose/Sinus: Normal nares present Mouth: Yes moist mucous membranes Eyes: General: appearance normal, both eyes and all related structures Sclera: sclerae normal Pupils: Equal, round and reactive pupils present EOM: EOMs intact bilaterally Resp: Effort & Inspection: normal respiratory effort Auscultation: clear to auscultation bilaterally Cardio: Rate: tachycardic Rhythm: abnormal rhythm Other: No murmur rub GI: Other: Abdomen soft, nondistended, nontender. Normoactive bowel sounds in all quadrants. Skin: General skin exam: normal color and no rashes or lesions noted Neuro: Speech: normal speech Motor exam (neuro): 5/5 motor strength present throughout Sensory Exam: normal sensation Other: A&O x4 Extrem: General: normal to inspection Psych: Mental Status: mental status grossly normal Affect: normal affect Other: Good insight and judgment. H&P: Results Labs Labs: Short CBC 02/22/25 Range/Units 09:32 WBC 11.5 H (4.5-10.0) K/mm3 Hgb 12.4 (12.0-15.0) g/dL Hct 38.5 (37.0-47.0) % Plt Count 347 (150-375) k/mm3 BMP 02/22/25 09:32 Sodium 139 Potassium 4.2 Chloride 107 Carbon Dioxide 25 BUN 26 H D Creatinine 1.25 H Glucose 130 H Calcium 10.2 Cardiac Enzymes 02/22/25 Range/Units 09:32 Troponin I 0.018 (0.000-0.034) ng/mL Liver Function 02/22/25 Range/Units 09:32 Total Bilirubin 0.5 (0.2-1.3) mg/dL AST 27 (14-36) U/L ALT 16 (6-35) U/L Alkaline Phosphatase 57 (38-126) U/L Albumin 3.5 (3.5-5.1) g/dL Urine 08/14/25 Range/Units 11:05 Urine Color Yellow (Yellow) Urine Appearance Clear (Clear) Urine pH 6.5 (5.0-9.0) Ur Specific [place] 1.025 (1.001-1.035) Urine Protein Trace (Negative) mg/dL Urine Glucose (UA) Negative (Negative) mg/dL Assessment and Plan Assessment and plan (1) Atrial fibrillation with rapid ventricular response: Code(s): I48.91 - Unspecified atrial fibrillation Status: Acute Assessment and Plan: - initial EKG showed AFib RVR with a brain conduction or ventricular premature complexes as well as nonspecific ST/T-wave abnormality in high lateral leads, rate 165. - repeat EKG done same day showed a decrease in heart rate, remains in AFib RVR, rate 103 - hold home Metoprolol - given metoprolol 5 mg IV push x3 and diltiazem 10 mg IV x1 (HR 160s -> 120s). Will start patient on diltiazem gtt with 10 mg IV push upon initiation. RN instructed to hold gtt if HR is controlled with second IV push of Cardizem. - cardiology consulted - check TSH - telemetry monitoring and admission to IMU for close monitoring (2) Pneumonia: Qualifiers: Laterality: bilateral Lung location: unspecified part of lung Pneumonia type: due to unspecified organism Qualified Code(s): J18.9 - Pneumonia, unspecified organism Code(s): J18.9 - Pneumonia, unspecified organism Status: Acute Assessment and Plan: - recently diagnosed with pneumonia with doxycycline and a steroid course which were prescribed on 02/14. - CXR: 1. Confluent opacity in the lower third of the left hemithorax which has slightly increased in size. Differential includes a combination of pleural fluid with adjacent atelectasis and/or consolidation. An underlying mass is possible. Recommend follow-up to resolution. Consider a chest CT for further assessment. 2.Small patchy opacities in the right lower lung. Differential includes atelectasis or infiltrates. - chest CTA: 1. There are a few small groundglass and patchy opacities in both lungs most prominent in the lower lobes. Differential includes but is not limited to atelectasis/scarring or infiltrates. 2. Small left-sided pleural effusion. Tiny right-sided pleural effusion. 3. Several new low-density indeterminate lesions scattered throughout the liver, the largest measures 1.5 cm in the right lobe of the liver. A Liver mass MRI is recommended. 4. Indeterminate 2.3 cm left adrenal nodule. An adrenal mass MRI is recommended. - started on doxycycline outpatient. Will continue as Levaquin inpatient given patient has not had resolution of infiltrates on imaging. - check MRSA PCR and sputum culture (if obtainable) - supportive care - no current supplemental O2 requirement (3) Acute kidney injury: Code(s): N17.9 - Acute kidney failure, unspecified Status: Acute Assessment and Plan: - mild NAT noted upon admission. Creatinine 1.25, BUN 26, GFR 42 - baseline creatinine 0.8-0.9 - given 1 L bolus in the ED - trend renal function (4) CHF (congestive heart failure): Qualifiers: Heart failure type: diastolic Heart failure chronicity: chronic Qualified Code(s): I50.32 - Chronic diastolic (congestive) heart failure Code(s): I50.9 - Heart failure, unspecified Status: Acute Assessment and Plan: - BNP 6470 - small left pleural effusion and tiny right pleural effusion noted on CTA - most recent echo (2022): Normal systolic function with an EF of 55-60%, abnormal diastolic function, mild concentric LV wall thickness, mild pulmonary hypertension, trivial pericardial effusion. See report for details. - patient is not on a daily diuretic at home, given 1 time dose of Lasix 40 mg IV. Does not appear volume overloaded on exam. Will hold on further diuresis. - monitor I&Os and daily weights - trend renal function (5) COPD (chronic obstructive pulmonary disease): Qualifiers: COPD type: unspecified COPD Qualified Code(s): J44.9 - Chronic obstructive pulmonary disease, unspecified Code(s): J44.9 - Chronic obstructive pulmonary disease, unspecified Status: Chronic Assessment and Plan: - no current evidence of exacerbation on exam - DuoNebs PRN - continue steroid course (6) Diabetes mellitus: Qualifiers: Diabetes mellitus complication status: without complication Diabetes mellitus longterm insulin use: without longterm use Diabetes mellitus type: type 2 Qualified Code(s): E11.9 - Type 2 diabetes mellitus without complications Code(s): E11.9 - Type 2 diabetes mellitus without complications Status: Chronic Assessment and Plan: - history of diet controlled diabetes, initial glucose 130 - A1C 5.8% in 2023, update (7) Hypertension: Qualifiers: Hypertension type: primary hypertension Qualified Code(s): I10 - Essential (primary) hypertension Code(s): I10 - Essential (primary) hypertension Status: Chronic Assessment and Plan: - chronic, currently 165/99. Originally presented here for low blood pressure readings at home. Lowest reading since arrival has been no 124/73. - metoprolol held - monitor Plan - Patient will need outpatient follow-up on an indeterminate 2.3 cm left adrenal nodule and for several new low-density indeterminate lesions scattered throughout the liver. Liver MRI and adrenal mass MRI were recommended. - Patient additionally has a history of frequent UTIs. UA currently showing 1+ leuk esterase and 6-10 WBC with no epithelial cells or bacteria. Currently denying symptoms. Follow urine culture that was obtained 2013. Diet: Heart healthy GI Prophylaxis: N/a DVT Prophylaxis: Lovenox SQ IV fluids: 1L bolus Lines/Tubes: Peripheral IV Code Status: Full code Quality VTE Prophylaxis VTE prophylaxis: pharmacologic ordered Hospitalist MIPS Advance Care Plan I have confirmed that the patient's Advanced Care Plan is present, code status is documented, or surrogate decision maker is listed in patient medical record.: Yes Medication Reconciliation I have utilized all available resources to obtain, update and review the patients current medications (includes all prescriptions, OTC, herbals, cannabis, and nutritional supplements).: Yes
[2025-02-22 14:02] LABS: Partial Thromboplastin Time 28.0 Seconds (22.3-36.8)
[2025-02-22 14:40] LABS: Troponin I 0.013 ng/mL (0.000-0.034)
[2025-02-22] MEDS: dilTIAZem 100 MG/100 ML 100 MG/100 ML BAG IV CONT (15:46)
[2025-02-22] MEDS: levoFLOXacin 750 MG/D5W 150 ML 750 MG/150 ML BAG 100 MG IVPB (15:52)
[2025-02-22] MEDS: DULoxetine HCL 60 MG CAPSULE.DR PO (17:14)
[2025-02-22] MEDS: HYDROcodone/acetaminophen (*CRX) 5-325 MG TABLET 1 TAB PO (17:15)
[2025-02-22] MEDS: GABAPENTIN 400 MG CAPSULE 800 MG PO (17:33)
[2025-02-22 19:51] LABS: MRSA (PCR) NOT DETECTED (NOT DETECTE)
[2025-02-23] VITALS (33 sets, daily range): BP systolic 109–156; BP diastolic 65–92; PULSE 42–147; RESP 15–20; TEMP 36.5–37; O2SAT 92–98
[2025-02-23] MEDS: HYDROcodone/acetaminophen (*CRX) 5-325 MG TABLET 1 TAB PO ×3 (04:45→17:21)
[2025-02-23 05:52] LABS: Hematocrit 40.2 % (37.0-47.0); Hemoglobin 12.6 g/dL (12.0-15.0); Immature Granulocyte Percent A 0.3 % (0-0.5); Lymphocytes Absolute Auto 2.23 K/mm3 (0.9-3.2); Mean Corpuscular HGB Conc 31.3 g/dl (32-36); Mean Corpuscular Hemoglobin 30.1 pg (26-34); Mean Corpuscular Volume 96.2 fl (80-100); Nucleated Red Blood Cells Absolute Auto 0.000 K/mm3 (0.0-0.012); Nucleated Red Blood Cells Perc 0.0 % (0.0-0.2); Platelet Count Result 322 k/mm3 (150-375); Red Blood Count 4.18 M/mm3 (4.2-5.4); White Blood Count 8.8 K/mm3 (4.5-10.0)
[2025-02-23 06:29] LABS: Thyroid Stimulating Hormone Reflex 1.440 uIU/mL (0.465-4.68)
[2025-02-23 07:07] LABS: Alanine Aminotransferase 12 U/L (6-35); Albumin Level 3.5 g/dL (3.5-5.1); Alkaline Phosphatase 49 U/L (38-126); Anion Gap 6 mmol/L (4-12); Aspartate Amino Transferase 31 U/L (14-36); Bilirubin,Total 0.6 mg/dL (0.2-1.3); Blood Urea Nitrogen 23 mg/dL (7-17); Calcium 9.4 mg/dL (8.4-10.2); Carbon Dioxide 27 mmol/L (22-30); Chloride 106 mmol/L (98-107); Estimated CRCL calculation 44 ml/min; Estimated Glomerular Filt Rate 55; Glucose 99 mg/dL (65-110); Potassium 3.3 mmol/L (3.4-5.0); Sodium 139 mmol/L (137-145); Total Protein 6.0 g/dL (6.3-8.2)
[2025-02-23] MEDS: GABAPENTIN 400 MG CAPSULE 800 MG PO ×4 (08:09→21:18)
[2025-02-23] MEDS: CHOLECALCIFEROL (VITAMIN D3) 25 MCG (1,000 UNITS) TABLET 50 MCG PO (08:09)
[2025-02-23] MEDS: DULoxetine HCL 60 MG CAPSULE.DR PO ×2 (08:09→17:21)
[2025-02-23] MEDS: SIMVASTATIN 20 MG TABLET PO (08:10)
[2025-02-23] MEDS: ENOXAPARIN 40 MG/0.4 ML SYRINGE SUB-Q (08:10)
--- NOTE | 2025-02-23 08:20 | PM.IMPN ---
Progress Note: A&P Assessment and Plan (1) Atrial fibrillation with rapid ventricular response: Code(s): I48.91 - Unspecified atrial fibrillation Status: Acute Assessment and Plan: - initial EKG showed AFib RVR with a brain conduction or ventricular premature complexes as well as nonspecific ST/T-wave abnormality in high lateral leads, rate 165. - repeat EKG done same day showed a decrease in heart rate, remains in AFib RVR, rate 103 - hold home Metoprolol - given metoprolol 5 mg IV push x3 and diltiazem 10 mg IV x1 (HR 160s -> 120s). Will start patient on diltiazem gtt with 10 mg IV push upon initiation. RN instructed to hold gtt if HR is controlled with second IV push of Cardizem. - cardiology consulted - check TSH - telemetry monitoring and admission to IMU for close monitoring (2) Pneumonia: Qualifiers: Laterality: bilateral Lung location: unspecified part of lung Pneumonia type: due to unspecified organism Qualified Code(s): J18.9 - Pneumonia, unspecified organism Code(s): J18.9 - Pneumonia, unspecified organism Status: Acute Assessment and Plan: - recently diagnosed with pneumonia with doxycycline and a steroid course which were prescribed on 02/14. - CXR: 1. Confluent opacity in the lower third of the left hemithorax which has slightly increased in size. Differential includes a combination of pleural fluid with adjacent atelectasis and/or consolidation. An underlying mass is possible. Recommend follow-up to resolution. Consider a chest CT for further assessment. 2.Small patchy opacities in the right lower lung. Differential includes atelectasis or infiltrates. - chest CTA: 1. There are a few small groundglass and patchy opacities in both lungs most prominent in the lower lobes. Differential includes but is not limited to atelectasis/scarring or infiltrates. 2. Small left-sided pleural effusion. Tiny right-sided pleural effusion. 3. Several new low-density indeterminate lesions scattered throughout the liver, the largest measures 1.5 cm in the right lobe of the liver. A Liver mass MRI is recommended. 4. Indeterminate 2.3 cm left adrenal nodule. An adrenal mass MRI is recommended. - started on doxycycline outpatient. Will continue as Levaquin inpatient given patient has not had resolution of infiltrates on imaging. - check MRSA PCR and sputum culture (if obtainable) - supportive care - no current supplemental O2 requirement (3) Acute kidney injury: Code(s): N17.9 - Acute kidney failure, unspecified Status: Acute Assessment and Plan: - mild NAT noted upon admission. Creatinine 1.25, BUN 26, GFR 42 - baseline creatinine 0.8-0.9 - given 1 L bolus in the ED - trend renal function (4) CHF (congestive heart failure): Qualifiers: Heart failure chronicity: chronic Heart failure type: diastolic Qualified Code(s): I50.32 - Chronic diastolic (congestive) heart failure Code(s): I50.9 - Heart failure, unspecified Status: Acute Assessment and Plan: - BNP 6470 - small left pleural effusion and tiny right pleural effusion noted on CTA - most recent echo (2022): Normal systolic function with an EF of 55-60%, abnormal diastolic function, mild concentric LV wall thickness, mild pulmonary hypertension, trivial pericardial effusion. See report for details. - patient is not on a daily diuretic at home, given 1 time dose of Lasix 40 mg IV. Does not appear volume overloaded on exam. Will hold on further diuresis. - monitor I&Os and daily weights - trend renal function (5) COPD (chronic obstructive pulmonary disease): Qualifiers: COPD type: unspecified COPD Qualified Code(s): J44.9 - Chronic obstructive pulmonary disease, unspecified Code(s): J44.9 - Chronic obstructive pulmonary disease, unspecified Status: Chronic Assessment and Plan: - no current evidence of exacerbation on exam - DuoNebs PRN - continue steroid course (6) Diabetes mellitus: Qualifiers: Diabetes mellitus complication status: without complication Diabetes mellitus manager intermediate insulin use: without manager intermediate use Diabetes mellitus type: type 2 Qualified Code(s): E11.9 - Type 2 diabetes mellitus without complications Code(s): E11.9 - Type 2 diabetes mellitus without complications Status: Chronic Assessment and Plan: - history of diet controlled diabetes, initial glucose 130 - A1C 5.8% in 2023, update (7) Hypertension: Qualifiers: Hypertension type: primary hypertension Qualified Code(s): I10 - Essential (primary) hypertension Code(s): I10 - Essential (primary) hypertension Status: Chronic Assessment and Plan: - chronic, currently 165/99. Originally presented here for low blood pressure readings at home. Lowest reading since arrival has been no 124/73. - metoprolol held - monitor Plan - Patient will need outpatient follow-up on an indeterminate 2.3 cm left adrenal nodule and for several new low-density indeterminate lesions scattered throughout the liver. Liver MRI and adrenal mass MRI were recommended. - Patient additionally has a history of frequent UTIs. UA currently showing 1+ leuk esterase and 6-10 WBC with no epithelial cells or bacteria. Currently denying symptoms. Follow urine culture that was obtained 2013. Diet: Heart healthy GI Prophylaxis: N/a DVT Prophylaxis: Lovenox SQ IV fluids: 1L bolus Lines/Tubes: Peripheral IV Code Status: Full code Subjective Date/time seen: 02/23/25 08:20 Interval history: Patient is still on Cardizem drip. Possible cardioversion Wednesday Review of Systems Review of Systems: All systems reviewed & are unremarkable except as noted in HPI and below Exam Const: General: comfortable and no acute distress Other: , female, elderly, obese body habitus, nontoxic appearance HENMT: Face/Nose/Sinus: Normal nares present Mouth: Yes moist mucous membranes Eyes: General: appearance normal, both eyes and all related structures Sclera: sclerae normal Pupils: Equal, round and reactive pupils present EOM: EOMs intact bilaterally Resp: Effort & Inspection: normal respiratory effort Auscultation: clear to auscultation bilaterally Cardio: Rate: tachycardic Rhythm: abnormal rhythm Other: No murmur rub GI: Other: Abdomen soft, nondistended, nontender. Normoactive bowel sounds in all quadrants. Skin: General skin exam: normal color and no rashes or lesions noted Neuro: Cranial nerves: Yes Equal, round and reactive pupils present Speech: normal speech Motor exam (neuro): 5/5 motor strength present throughout Sensory Exam: normal sensation Other: A&O x4 Extrem: General: normal to inspection Psych: Mental Status: mental status grossly normal Affect: normal affect Other: Good insight and judgment. Objective Data Vital Signs Vital Signs: Vital Signs - 24 hr 02/22/25 09:15 02/22/25 09:15 02/22/25 09:29 Temperature 98.4 F Pulse Rate 164 H 164 H 153 H Respiratory Rate 22 H Blood Pressure 124/73 Pulse Oximetry 96 Oxygen Delivery Room Air 02/22/25 09:31 02/22/25 09:36 02/22/25 09:45 Temperature Pulse Rate 146 H 127 H 114 H Respiratory Rate 16 20 19 Blood Pressure 135/73 Pulse Oximetry 96 94 93 Oxygen Delivery 02/22/25 09:46 02/22/25 10:04 02/22/25 10:31 Temperature Pulse Rate 111 H 116 H 112 H Respiratory Rate 15 22 H 25 H Blood Pressure 125/93 H Pulse Oximetry 94 92 92 Oxygen Delivery 02/22/25 10:32 02/22/25 10:45 02/22/25 10:46 Temperature Pulse Rate 130 H 120 H 137 H Respiratory Rate 21 H 28 H 25 H Blood Pressure 155/86 H 165/99 H Pulse Oximetry 92 95 90 Oxygen Delivery 02/22/25 10:51 02/22/25 15:46 02/22/25 16:15 Temperature 98.2 F Pulse Rate 120 H 111 H 112 H Respiratory Rate 18 Blood Pressure 126/79 143/90 H Pulse Oximetry 96 Oxygen Delivery 02/22/25 18:00 02/22/25 20:00 02/22/25 20:00 Temperature Pulse Rate 103 H 112 H Respiratory Rate Blood Pressure Pulse Oximetry Oxygen Delivery Room Air 02/22/25 20:00 02/22/25 20:37 02/22/25 22:00 Temperature 98.3 F Pulse Rate 109 H 109 H 122 H Respiratory Rate 14 Blood Pressure 144/68 H 144/68 H Pulse Oximetry 95 Oxygen Delivery 02/22/25 22:00 02/22/25 22:00 02/23/25 00:00 Temperature Pulse Rate 122 H 122 H Respiratory Rate 20 Blood Pressure 138/76 138/76 Pulse Oximetry 96 Oxygen Delivery Room Air 02/23/25 00:00 02/23/25 00:00 02/23/25 00:17 Temperature 98.4 F Pulse Rate 118 H 127 H 127 H Respiratory Rate 18 Blood Pressure 143/74 H 143/74 H Pulse Oximetry 97 Oxygen Delivery 02/23/25 02:00 02/23/25 02:00 02/23/25 02:00 Temperature Pulse Rate 144 H 143 H 143 H Respiratory Rate 16 Blood Pressure 140/84 140/84 Pulse Oximetry 95 Oxygen Delivery 02/23/25 04:00 02/23/25 04:00 02/23/25 04:00 Temperature Pulse Rate 131 H 127 H Respiratory Rate Blood Pressure 135/79 Pulse Oximetry Oxygen Delivery Room Air 02/23/25 05:32 02/23/25 05:51 02/23/25 06:00 Temperature 98.4 F Pulse Rate 131 H 115 H 121 H Respiratory Rate 18 Blood Pressure 135/79 156/82 H 156/82 H Pulse Oximetry 94 92 Oxygen Delivery 02/23/25 06:00 02/23/25 07:53 02/23/25 07:59 Temperature 98.3 F Pulse Rate 121 H 129 H 119 H Respiratory Rate 20 Blood Pressure 125/71 Pulse Oximetry 93 Oxygen Delivery Intake/Output Intake/Output: Intake & Output 02/20/25 02/21/25 02/22/25 02/23/25 23:59 23:59 23:59 23:59 Intake Total 1621.2 749.9 Output Total 550 400 Balance 1071.2 349.9 Meds/Results Medications: Active Medications Generic Name Dose Route Start Last Admin Trade Name Freq PRN Reason Stop Dose Admin Acetaminophen 650 mg 02/22/25 14:26 Acetaminophen 325 Mg Tablet PO Q6H PRN Mild Pain (1-3) or Fever Hydrocodone Bitart/Acetaminophen 1 tab 02/22/25 14:51 02/23/25 04:45 Hydrocodone/Acetaminophen (*Crx) 5-325 Mg Tablet PO 1 tab TID PRN Administration pain (scale score 4-6) Albuterol/Ipratropium 3 ml 02/22/25 14:26 Ipratropium 0.5 Mg/Albuterol Sulfate 2.5 Mg Ampul.Neb 3 Ml INHALATION Q6HRT PRN Shortness Of Breath Or Wheezing Albuterol/Ipratropium 3 ml 02/22/25 14:49 Ipratropium 0.5 Mg/Albuterol Sulfate 2.5 Mg Ampul.Neb 3 Ml INHALATION Q6H PRN shortness of breath or wheezing Benzonatate 100 mg 02/22/25 14:26 Benzonatate 100 Mg Capsule PO TID PRN Cough Duloxetine HCl 60 mg 02/22/25 17:00 02/23/25 08:09 Duloxetine Hcl 60 Mg Capsule.Dr PO 60 mg BID ROSE MARY Administration Enoxaparin Sodium 40 mg 02/23/25 09:00 02/23/25 08:10 Enoxaparin 40 Mg/0.4 Ml Syringe SUB-Q 40 mg DAILY ROSE MARY Administration Gabapentin 800 mg 02/22/25 17:00 02/23/25 08:09 Gabapentin 400 Mg Capsule PO 800 mg QID ROSE MARY Administration Guaifenesin 600 mg 02/22/25 14:26 Guaifenesin 12 Hr 600 Mg Tabcr PO Q12HR PRN Congestion Levofloxacin/Dextrose 750 mg in 150 mls @ 100 mls/hr 02/22/25 12:00 02/22/25 15:52 Levaquin 750 Mg/D5w 150 Ml IVPB 100 mls/hr Q48H ROSE MARY Administration Diltiazem HCl 100 mg in 100 mls @ 5 mls/hr 02/22/25 14:45 02/23/25 07:59 Cardizem 100 Mg/100 Ml IV CONT 5 mg/hr .Q20H ROSE MARY 5 mls/hr Infusion 5 MG/HR Ibuprofen 800 mg 02/22/25 15:18 Ibuprofen 400 Mg Tablet PO BID PRN BACK PAIN Ondansetron HCl 4 mg 02/22/25 14:26 Ondansetron Hcl Odt 4 Mg Tablet PO Q6H PRN Nausea And Vomiting Polyethylene Glycol 17 gm 02/22/25 14:26 Polyethylene Glycol 3350 17 Gm Powd.Pack PO QAM PRN Constipation Prednisone 10 mg 02/23/25 09:00 02/23/25 08:09 Prednisone 10 Mg Tablet PO 02/25/25 09:01 10 mg DAILY ROSE MARY Administration Risperidone 1 mg 02/22/25 21:05 02/23/25 08:09 Risperidone 1 Mg Tablet PO 1 mg TID ROSE MARY Administration Simvastatin 20 mg 02/23/25 09:00 02/23/25 08:10 Simvastatin 20 Mg Tablet PO 20 mg DAILY ROSE MARY Administration Vitamin D 50 mcg 02/23/25 09:00 02/23/25 08:09 Cholecalciferol (Vitamin D3) 25 Mcg (1,000 Units) Tablet PO 50 mcg DAILY ROSE MARY Administration Radiology Results: ITS Impressions Chest X-Ray 02/22/25 10:01 IMPRESSION: 1. Confluent opacity in the lower third of the left hemithorax which has slightly increased in size. Differential includes a combination of pleural fluid with adjacent atelectasis and/or consolidation. An underlying mass is possible. Recommend follow-up to resolution. Consider a chest CT for further assessment. 2.Small patchy opacities in the right lower lung. Differential includes atelectasis or infiltrates. Chest CTA 02/22/25 10:51 IMPRESSION: 1. There are a few small groundglass and patchy opacities in both lungs most prominent in the lower lobes. Differential includes but is not limited to atelectasis/scarring or infiltrates. 2. Small left-sided pleural effusion. Tiny right-sided pleural effusion. 3. Several new low-density indeterminate lesions scattered throughout the liver, the largest measures 1.5 cm in the right lobe of the liver. A Liver mass MRI is recommended. 4. Indeterminate 2.3 cm left adrenal nodule. An adrenal mass MRI is recommended. Labs Labs: Laboratory Results - last 24 hr 02/22/25 02/22/25 02/22/25 09:32 11:05 13:26 WBC 11.5 H RBC 4.07 L Hgb 12.4 Hct 38.5 MCV 94.6 MCH 30.5 MCHC 32.2 RDW 13.9 Plt Count 347 MPV 11.2 H Immature Gran % (Auto) 0.6 H Neut % (Auto) 90.4 H Lymph % (Auto) 6.4 L [place] % (Auto) 2.4 L Eos % (Auto) 0.0 Baso % (Auto) 0.2 Lymph # (Auto) 0.73 L [place] # (Auto) 0.3 Eos # (Auto) 0.0 Baso # (Auto) 0.0 Abs Immat Gran (auto) 0.07 H Absolute Neuts (auto) 10.4 H Absolute Nucleated RBC 0.000 Nucleated RBC % 0.0 PT 15.5 H 15.0 H INR 1.2 1.2 APTT 27.6 28.0 Sodium 139 Potassium 4.2 Chloride 107 Carbon Dioxide 25 Anion Gap 7 BUN 26 H D Creatinine 1.25 H Estim Creat Clear Calc 36 Estimated GFR 42 L Glucose 130 H Lactic Acid 1.0 Calcium 10.2 Total Bilirubin 0.5 AST 27 ALT 16 Alkaline Phosphatase 57 Troponin I 0.018 0.013 D C-Reactive Protein < 0.5 NT-Pro-B Natriuret Pep 6470 H Total Protein 6.0 L Albumin 3.5 TSH (Reflex) Urine Color Yellow Urine Appearance Clear Urine pH 6.5 Ur Specific [place] 1.025 Urine Protein Trace Urine Glucose (UA) Negative Urine Ketones Negative Ur Blood (Man) Negative Urine Nitrate Negative Urine Bilirubin Negative Urine Urobilinogen 0.2 Leukocyte Esterase Rfl 1+ H Urine RBC 0-2 Urine WBC 6-10 H Ur Squamous Epith Cells None seen Urine Bacteria None seen Urine Casts 3-5 Nasal MRSA (PCR) 02/22/25 02/23/25 18:36 05:00 WBC 8.8 RBC 4.18 L Hgb 12.6 Hct 40.2 MCV 96.2 MCH 30.1 MCHC 31.3 L RDW 14.2 Plt Count 322 MPV 11.6 H Immature Gran % (Auto) 0.3 Neut % (Auto) 59.3 Lymph % (Auto) 25.3 [place] % (Auto) 13.9 H Eos % (Auto) 0.7 Baso % (Auto) 0.5 Lymph # (Auto) 2.23 [place] # (Auto) 1.2 H Eos # (Auto) 0.1 Baso # (Auto) 0.0 Abs Immat Gran (auto) 0.03 Absolute Neuts (auto) 5.2 Absolute Nucleated RBC 0.000 Nucleated RBC % 0.0 PT INR APTT Sodium 139 Potassium 3.3 L Chloride 106 Carbon Dioxide 27 Anion Gap 6 BUN 23 H Creatinine 1.00 Estim Creat Clear Calc 44 Estimated GFR 55 L Glucose 99 Lactic Acid Calcium 9.4 Total Bilirubin 0.6 AST 31 ALT 12 Alkaline Phosphatase 49 Troponin I C-Reactive Protein NT-Pro-B Natriuret Pep Total Protein 6.0 L Albumin 3.5 TSH (Reflex) 1.440 Urine Color Urine Appearance Urine pH Ur Specific [place] Urine Protein Urine Glucose (UA) Urine Ketones Ur Blood (Man) Urine Nitrate Urine Bilirubin Urine Urobilinogen Leukocyte Esterase Rfl Urine RBC Urine WBC Ur Squamous Epith Cells Urine Bacteria Urine Casts Nasal MRSA (PCR) Not detected Quality VTE Prophylaxis VTE prophylaxis: pharmacologic ordered Hospitalist [facility] Advance Care Plan I have confirmed that the patient's Advanced Care Plan is present, code status is documented, or surrogate decision maker is listed in patient medical record.: Yes Medication Reconciliation I have utilized all available resources to obtain, update and review the patients current medications (includes all prescriptions, OTC, herbals, cannabis, and nutritional supplements).: Yes
--- NOTE | 2025-02-23 09:10 | ECG_ITS ---
Test Date: 2025-02-23 09:20:58 Measurements Intervals [place] Rate: 119 P: 0 TN: 0 QRS: -19 QRSD: 81 T: 58 QT: 334 QTc: 470 Interpretive Statements ATRIAL FIBRILLATION WITH RAPID VENTRICULAR RESPONSE WITH VENTRICULAR COUPLET DELAYED PRECORDIAL R/S TRANSITION BORDERLINE ST-T WAVE ABNORMALITY- HIGH LATERAL LEADS BASELINE ARTIFACT- I, II, III, AVR, AVF, V1 ABNORMAL ECG Compared to ECG 02/22/2025 12:38:46 HEART RATE HAS INCREASED Electronically Signed On 02-23-2025 10:09:08 CDT by Fransico Ortega D.O.
--- NOTE | 2025-02-23 09:19 | P.CONCA_ITS ---
Assessment and Plan Assessment and plan (1) Atrial fibrillation with rapid ventricular response: Code(s): I48.91 - Unspecified atrial fibrillation Status: Acute Assessment and Plan: Recent diagnosis of paroxysmal atrial fibrillation. She now has atrial fibrillation with rapid ventricular response in the setting of acute illness with pneumonia. * Continue diltiazem drip at 10 milligrams/hour * Add metoprolol tartrate 25 mg p.o. b.i.d.-up titrate as needed. * She recently had an echocardiogram performed in the office that showed normal systolic function with diastolic dysfunction * Check and replace electrolytes as necessary with goal K+ 4.0 and back 2.0. K+ 3.3 this morning, give 40 mEq KCL p.o. x1 now * Ultimately, would like to attempt adventist of sinus rhythm with cardioversion. This would require KENDELL to rule out thrombus prior to cardioversion as she has only been on Xarelto for about a week. We will attempt rate control for now as she has already eaten today, therefore kendell/cardioversion cannot be performed. If rate control is not successful over the weekend, we can plan for KENDELL cardioversion on Wednesday. (2) Hypertension: Qualifiers: Hypertension type: primary hypertension Qualified Code(s): I10 - Essential (primary) hypertension Code(s): I10 - Essential (primary) hypertension Status: Chronic Assessment and Plan: At goal (3) Hyperlipidemia: Code(s): E78.5 - Hyperlipidemia, unspecified Status: Acute Assessment and Plan: Continue statin. (4) Pneumonia: Qualifiers: Laterality: bilateral Lung location: unspecified part of lung P neumonia type: due to unspecified organism Qualified Code(s): J18.9 - Pneumonia, unspecified organism Code(s): J18.9 - Pneumonia, unspecified organism Status: Acute Assessment and Plan: Management per hospitalist. (5) Chronic obstructive pulmonary disease: Code(s): J44.9 - Chronic obstructive pulmonary disease, unspecified Status: Chronic Assessment and Plan: Management per hospitalist. History of Present Illness History of Present Illness Consult date/time: 02/23/25 09:19 Requesting physician: Donna Borges APRN Consult reason: atrial fibrillation Reason For Visit: Atrial Fibrillation/CHF Exacerbation/ Pneumonia/AK Narrative: Ruchi Lewis is a 74-year-old female with COPD and tobacco abuse, GERD, arthritis, hyperlipidemia, type 2 diabetes mellitus, chronic pain syndrome, depression, anxiety, diastolic heart failure, paroxysmal SVT, and palpitations. This is a patient who comes to the hospital with concerns of low blood pressure. Cardiology is consulted for atrial fibrillation with rapid ventricular response. 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 She was started on Xarelto and continued on metoprolol for heart rate control. She is hospitalized now in being treated for pneumonia and in this setting she has atrial fibrillation with rapid ventricular response. She has been placed on a diltiazem drip but her heart rates are persistently elevated. She does feel palpitations and reports feeling chest tightness intermittently. Review of Systems 2 Review of Systems: All systems reviewed & are unremarkable except as noted in HPI and below PMFSH Past Medical History Medical History Type 2 diabetes mellitus Diet-controlled, recent A1c was 6.0. Atrial fibrillation Frequent urinary tract infections Mild pulmonary hypertension Estimated PASP of 46 mmHg on echo in 10/2022. Diastolic dysfunction Echocardiogram on 10/23/2022: normal LV size and function, estimated EF of 55 to 60%, diastolic dysfunction, moderate left atrial enlargement, and mild pulmonary hypertension. Chronic pain syndrome Vitamin D deficiency Normocytic anemia Nicotine use Depression with anxiety Kidney stones Shingles Arthritis Gastroesophageal reflux disease Hypertension Hyperlipidemia Chronic obstructive pulmonary disease Sinus congestion Surgical History Surgical History History of fusion of cervical spine C4 through C6. History of lithotripsy History of hernia repair History of appendectomy Family History Family History Sibling Family history of blood dyscrasia Family history of malignant neoplasm Family history of seizure disorder Mother Family history of malignant neoplasm, Onset Age: 85 Family history of lymphoma, Onset Age: 85 Family history of atrial fibrillation, Onset Age: 85 Social History Social History Social History: Surrogate medical decision maker: Usha Ashley, granddaughter. Code status: Full code. Smoking packs per day: 0.5 Smoking cigarettes per day: 10.0 Years smoked: 7 Smoking pack-years: 3.50 Smoking status: Current every day smoker Tobacco type: cigarettes Second hand tobacco smoke exposure: Yes Alcohol intake: never Substance use: never Substance use type: does not use Do You Feel Safe in your Home?: Yes Lack of Transportation: No Lack of Food: Never True Current Housing: I Have Housing Concerned About Future Housing: No Difficulty Paying Gas/Electric Bills: No Difficulty Paying for Meds: No Currently Unemployed: No Education: Associate Degree Difficulty w/ Childcare or Family Care: No Living arrangements: alone Spiritual care concerns: No Agree to blood products: Yes Meds Home Medications and Allergies Home Medications ?Medication ?Instructions ?Recorded ?Confirmed ?Type duloxetine 60 mg capsule,delayed 60 mg PO BID 12/26/19 02/22/25 History release (Cymbalta) ibuprofen 800 mg tablet See Rx Instructions .Route 10/22/22 02/22/25 History .COMPLEX PRN Pain risperidone 1 mg tablet 1 mg PO TID 10/22/22 02/22/25 History metoprolol tartrate 25 mg tablet See Rx Instructions .Route .COMPLEX 07/28/24 02/22/25 History gabapentin 800 mg tablet See Rx Instructions .Route 08/17/24 02/22/25 Rx .COMPLEX #360 tabs simvastatin 20 mg tablet See Rx Instructions .Route 10/11/24 02/22/25 Rx .COMPLEX #90 tabs cholecalciferol (vitamin D3) 50 See Rx Instructions .Route 11/24/24 02/22/25 Rx mcg (2,000 unit) capsule .COMPLEX #90 caps albuterol sulfate 90 mcg/actuation 1 - 2 inh inhalation Q4-6H PRN 01/04/25 02/22/25 Rx aerosol inhaler (Ventolin HFA) shortness of breath or wheezing #8.5 grams ipratropium 0.5 mg-albuterol 3 mg 3 ml inhalation Q6H PRN shortness 01/24/25 02/22/25 History (2.5 mg base)/3 mL nebulization of breath or wheezing soln prednisone 10 mg tablet 10 mg PO DIRECTED #30 tabs 02/14/25 02/22/25 Rx hydrocodone 5 mg-acetaminophen 325 1 tablet PO TID PRN pain (scale 02/22/25 02/22/25 History mg tablet score 4-6) rivaroxaban 20 mg PO DAILY 02/22/25 02/23/25 History Allergies Allergy/AdvReac Type Severity Reaction Status Date / Time erythromycin base Allergy Hives Verified 02/22/25 09:19 Penicillins Allergy Hives Verified 02/22/25 09:19 Vital Signs Vital Signs - 24 hr 02/22/25 09:29 02/22/25 09:31 02/22/25 09:36 Temperature Pulse Rate 153 H 146 H 127 H Respiratory Rate 16 20 Blood Pressure 135/73 Pulse Oximetry 96 94 Oxygen Delivery 02/22/25 09:45 02/22/25 09:46 02/22/25 10:04 Temperature Pulse Rate 114 H 111 H 116 H Respiratory Rate 19 15 22 H Blood Pressure 125/93 H Pulse Oximetry 93 94 92 Oxygen Delivery 02/22/25 10:31 02/22/25 10:32 02/22/25 10:45 Temperature Pulse Rate 112 H 130 H 120 H Respiratory Rate 25 H 21 H 28 H Blood Pressure 155/86 H Pulse Oximetry 92 92 95 Oxygen Delivery 02/22/25 10:46 02/22/25 10:51 02/22/25 15:46 Temperature Pulse Rate 137 H 120 H 111 H Respiratory Rate 25 H Blood Pressure 165/99 H 126/79 Pulse Oximetry 90 Oxygen Delivery 02/22/25 16:15 02/22/25 18:00 02/22/25 20:00 Temperature 36.8 C Pulse Rate 112 H 103 H Respiratory Rate 18 Blood Pressure 143/90 H Pulse Oximetry 96 Oxygen Delivery Room Air 02/22/25 20:00 02/22/25 20:00 02/22/25 20:37 Temperature 36.8 C Pulse Rate 112 H 109 H 109 H Respiratory Rate 14 Blood Pressure 144/68 H 144/68 H Pulse Oximetry 95 Oxygen Delivery 02/22/25 22:00 02/22/25 22:00 02/22/25 22:00 Temperature Pulse Rate 122 H 122 H 122 H Respiratory Rate 20 Blood Pressure 138/76 138/76 Pulse Oximetry 96 Oxygen Delivery 02/23/25 00:00 02/23/25 00:00 02/23/25 00:00 Temperature Pulse Rate 118 H 127 H Respiratory Rate Blood Pressure 143/74 H Pulse Oximetry Oxygen Delivery Room Air 02/23/25 00:17 02/23/25 02:00 02/23/25 02:00 Temperature 36.9 C Pulse Rate 127 H 144 H 143 H Respiratory Rate 18 16 Blood Pressure 143/74 H 140/84 Pulse Oximetry 97 95 Oxygen Delivery 02/23/25 02:00 02/23/25 04:00 02/23/25 04:00 Temperature Pulse Rate 143 H 131 H Respiratory Rate Blood Pressure 140/84 135/79 Pulse Oximetry Oxygen Delivery Room Air 02/23/25 04:00 02/23/25 05:32 02/23/25 05:51 Temperature 36.9 C Pulse Rate 127 H 131 H 115 H Respiratory Rate 18 Blood Pressure 135/79 156/82 H Pulse Oximetry 94 92 Oxygen Delivery 02/23/25 06:00 02/23/25 06:00 02/23/25 07:53 Temperature 36.8 C Pulse Rate 121 H 121 H 129 H Respiratory Rate 20 Blood Pressure 156/82 H 125/71 Pulse Oximetry 93 Oxygen Delivery 02/23/25 07:59 02/23/25 08:00 Temperature Pulse Rate 119 H Respiratory Rate Blood Pressure Pulse Oximetry Oxygen Delivery Room Air Exam 2 Const: General: comfortable, no acute distress, alert and awake O rientation/consciousness: patient oriented x3 HENMT: Head: normal to inspection Eyes: General: appearance normal, both eyes and all related structures P upils: Equal, round and reactive pupils present Neck: Neck: normal visual inspection, supple and no JVD Carotids: normal carotid upstroke Resp: Effort & Inspection: normal respiratory effort Auscultation: clear to auscultation bilaterally, crackles and diminished lung sounds Cardio: Rate: tachycardic Rhythm: abnormal rhythm irregularly irregular Heart sounds: S1 normal heart sound present, S2 normal heart sound present and no murmurs GI: Auscultation: normal bowel sounds Skin: General skin exam: normal color Neuro: General: patient oriented x3 Cranial nerves: Yes Equal, round and reactive pupils present Extrem: General: normal to inspection Psych: Appearance: grossly normal Mental Status: mental status grossly normal Results Labs and Meds 02/23/25 05:00 02/23/25 05:00 Lab results: Cardiac Enzymes 02/22/25 02/22/25 02/23/25 Range/Units 09:32 13:26 05:00 AST 27 31 (14-36) U/L Troponin I 0.018 0.013 D (0.000-0.034) ng/mL Coagulation 02/22/25 02/22/25 Range/Units 09:32 13:26 PT 15.5 H 15.0 H (11.1-14.7) Seconds APTT 27.6 28.0 (22.3-36.8) Seconds CBC 02/22/25 02/23/25 Range/Units 09:32 05:00 WBC 11.5 H 8.8 (4.5-10.0) K/mm3 RBC 4.07 L 4.18 L (4.2-5.4) M/mm3 Hgb 12.4 12.6 (12.0-15.0) g/dL Hct 38.5 40.2 (37.0-47.0) % Plt Count 347 322 (150-375) k/mm3 Lymph # (Auto) 0.73 L 2.23 (0.9-3.2) K/mm3 [place] # (Auto) 0.3 1.2 H (0.1-0.6) K/mm3 Eos # (Auto) 0.0 0.1 (0-0.3) K/mm3 Baso # (Auto) 0.0 0.0 (0.0-0.1) K/mm3 Comprehensive Metabolic Panel 02/22/25 02/23/25 Range/Units 09:32 05:00 Sodium 139 139 (137-145) mmol/L Potassium 4.2 3.3 L (3.4-5.0) mmol/L Chloride 107 106 (98-107) mmol/L Carbon Dioxide 25 27 (22-30) mmol/L BUN 26 H D 23 H (7-17) mg/dL Creatinine 1.25 H 1.00 (0.7-1.0) mg/dL Glucose 130 H 99 (65-110) mg/dL Calcium 10.2 9.4 (8.4-10.2) mg/dL AST 27 31 (14-36) U/L ALT 16 12 (6-35) U/L Alkaline Phosphatase 57 49 (38-126) U/L Total Protein 6.0 L 6.0 L (6.3-8.2) g/dL Albumin 3.5 3.5 (3.5-5.1) g/dL Intake and Output 02/22/25 02/23/25 02/23/25 23:59 07:59 15:59 Intake Total 621.2 749.9 Output Total 550 400 Balance 71.2 349.9 Intake: IV 31.2 49.9 dilTIAZem 100 MG/100 ML 100 mg 31.2 49.9 In 100 ml @ 5 MG/HR 5 mls/hr IV CONT .Q20H [facility] Rx#:[id number] Oral 590 700 Output: Urine 550 400 Patient Weight 02/23/25 23:59 Weight 75.5 kg
[2025-02-23] MEDS: dilTIAZem 100 MG/100 ML 100 MG/100 ML BAG 10 MG IV CONT ×2 (09:26→20:47)
[2025-02-23 10:05] LABS: Troponin I 0.033 ng/mL (0.000-0.034)
[2025-02-23] MEDS: METOPROLOL TARTRATE 25 MG TABLET PO ×2 (10:23→21:19)
[2025-02-23] MEDS: POTASSIUM CHLORIDE 20 MEQ ER TABLET 40 MEQ PO (10:23)
--- NOTE | 2025-02-23 11:11 | PCCARD ---
CANCELLED ECHO ORDERED 02/23/25 - PER CHINO WAYNE , PATIENT HAD ECHO IN HCG OFFICE RECENTLY
--- NOTE | 2025-02-23 11:42 | P.CDI_ITS ---
CDI Query Clarification Request Please clarify acuity of heart failure if known. * Acute * Chronic * Acute on Chronic * Unknown ER documented Acute exacerbation CHF, cardiology has a consultation with reason of a-fib and reason for visit of CHF exacerbation, but ongoing documentation states chronic diastolic CHF. ER documented: Clinical Impression: Atrial fibrillation with rapid ventricular response, Acute exacerbation of CHF (congestive heart failure), Pneumonia, Urinary tract infection, Acute kidney injury Cardiology consult: Consult reason: atrial fibrillation Reason For Visit: Atrial Fibrillation/CHF Exacerbation/ Pneumonia/AK Hospitalist: 4) CHF (congestive heart failure): Qualifiers: Heart failure type: diastolic Heart failure chronicity: chronic Qualified Code(s): I50.32 - Chronic diastolic (congestive) heart failure Code(s): I50.9 - Heart failure, unspecified Status: Acute Assessment and Plan: - BNP 6470 - small left pleural effusion and tiny right pleural effusion noted on CTA - most recent echo (2022): Normal systolic function with an EF of 55-60%, abnormal diastolic function, mild concentric LV wall thickness, mild pulmonary hypertension, trivial pericardial effusion. See report for details. - patient is not on a daily diuretic at home, given 1 time dose of Lasix 40 mg IV. Does not appear volume overloaded on exam. Will hold on further diuresis. - monitor I&Os and daily weights - trend renal function IV lasix given <Azalea Joe RN - Last Filed: 02/23/25 11:46> Clarified Diagnosis Clarified Diagnosis: Chronic <Dirk Foster MD - Last Filed: 02/23/25 16:34>
[2025-02-24] VITALS (19 sets, daily range): BP systolic 96–160; BP diastolic 58–94; PULSE 63–87; RESP 18–20; TEMP 36.4–36.9; O2SAT 92–99
--- NOTE | 2025-02-24 00:17 | ECG_ITS ---
Test Date: 2025-02-24 00:45:32 Measurements Intervals Martin Rate: 68 P: 70 VT: 154 QRS: -14 QRSD: 80 T: 33 QT: 413 QTc: 441 Interpretive Statements SINUS RHYTHM WITH FREQUENT SUPRAVENTRICULAR PREMATURE COMPLEXES DELAYED PRECORDIAL R/S TRANSITION BASELINE ARTIFACT- I, II, AVR, AVL, AVF ABNORMAL ECG Compared to ECG 02/23/2025 09:20:58 Atrial fibrillation no longer present Electronically Signed On 02-24-2025 07:14:38 CDT by Fransico Ortega D.O.
[2025-02-24] MEDS: HYDROcodone/acetaminophen (*CRX) 5-325 MG TABLET 1 TAB PO ×4 (02:45→23:56)
--- NOTE | 2025-02-24 08:03 | PM.IMPN ---
Progress Note: A&P Assessment and Plan (1) Atrial fibrillation with rapid ventricular response: Code(s): I48.91 - Unspecified atrial fibrillation Status: Acute Assessment and Plan: - initial EKG showed AFib RVR with a brain conduction or ventricular premature complexes as well as nonspecific ST/T-wave abnormality in high lateral leads, rate 165. - repeat EKG done same day showed a decrease in heart rate, remains in AFib RVR, rate 103 - given metoprolol 5 mg IV push x3 and diltiazem 10 mg IV x1 (HR 160s -> 120s). Will start patient on diltiazem gtt with 10 mg IV push upon initiation. RN instructed to hold gtt if HR is controlled with second IV push of Cardizem. - cardiology consulted -DC Cardizem drip -Continue Metoprolol 50 mg PO BID - TSH normal - telemetry monitoring and admission to IMU for close monitoring (2) Pneumonia: Qualifiers: Laterality: bilateral Lung location: unspecified part of lung Pneumonia type: due to unspecified organism Qualified Code(s): J18.9 - Pneumonia, unspecified organism Code(s): J18.9 - Pneumonia, unspecified organism Status: Acute Assessment and Plan: - recently diagnosed with pneumonia with doxycycline and a steroid course which were prescribed on 02/14. - CXR: 1. Confluent opacity in the lower third of the left hemithorax which has slightly increased in size. Differential includes a combination of pleural fluid with adjacent atelectasis and/or consolidation. An underlying mass is possible. Recommend follow-up to resolution. Consider a chest CT for further assessment. 2.Small patchy opacities in the right lower lung. Differential includes atelectasis or infiltrates. - chest CTA: 1. There are a few small groundglass and patchy opacities in both lungs most prominent in the lower lobes. Differential includes but is not limited to atelectasis/scarring or infiltrates. 2. Small left-sided pleural effusion. Tiny right-sided pleural effusion. 3. Several new low-density indeterminate lesions scattered throughout the liver, the largest measures 1.5 cm in the right lobe of the liver. A Liver mass MRI is recommended. 4. Indeterminate 2.3 cm left adrenal nodule. An adrenal mass MRI is recommended. - started on doxycycline outpatient. Will continue as Levaquin inpatient given patient has not had resolution of infiltrates on imaging. - MRSA PCR negative and sputum culture (if obtainable) - supportive care - no current supplemental O2 requirement (3) Acute kidney injury: Code(s): N17.9 - Acute kidney failure, unspecified Status: Acute Assessment and Plan: - mild NAT noted upon admission. Creatinine 1.25, BUN 26, GFR 42 - baseline creatinine 0.8-0.9 - given 1 L bolus in the ED - trend renal function (4) CHF (congestive heart failure): Qualifiers: Heart failure chronicity: chronic Heart failure type: diastolic Qualified Code(s): I50.32 - Chronic diastolic (congestive) heart failure Code(s): I50.9 - Heart failure, unspecified Status: Acute Assessment and Plan: - BNP 6470 - small left pleural effusion and tiny right pleural effusion noted on CTA - most recent echo (2022): Normal systolic function with an EF of 55-60%, abnormal diastolic function, mild concentric LV wall thickness, mild pulmonary hypertension, trivial pericardial effusion. See report for details. - patient is not on a daily diuretic at home, given 1 time dose of Lasix 40 mg IV. Does not appear volume overloaded on exam. Will hold on further diuresis. - monitor I&Os and daily weights - trend renal function (5) COPD (chronic obstructive pulmonary disease): Qualifiers: COPD type: unspecified COPD Qualified Code(s): J44.9 - Chronic obstructive pulmonary disease, unspecified Code(s): J44.9 - Chronic obstructive pulmonary disease, unspecified Status: Chronic Assessment and Plan: - no current evidence of exacerbation on exam - DuoNebs PRN - continue steroid course (6) Diabetes mellitus: Qualifiers: Diabetes mellitus complication status: without complication Diabetes mellitus superintendent container terminal insulin use: without superintendent container terminal use Diabetes mellitus type: type 2 Qualified Code(s): E11.9 - Type 2 diabetes mellitus without complications Code(s): E11.9 - Type 2 diabetes mellitus without complications Status: Chronic Assessment and Plan: - history of diet controlled diabetes, initial glucose 130 - A1C 5.8% in 2023, update (7) Hypertension: Qualifiers: Hypertension type: primary hypertension Qualified Code(s): I10 - Essential (primary) hypertension Code(s): I10 - Essential (primary) hypertension Status: Chronic Assessment and Plan: - chronic, currently 165/99. Originally presented here for low blood pressure readings at home. Lowest reading since arrival has been no 124/73. - metoprolol 50 mg PO BID - monitor Plan - Patient will need outpatient follow-up on an indeterminate 2.3 cm left adrenal nodule and for several new low-density indeterminate lesions scattered throughout the liver. Liver MRI and adrenal mass MRI were recommended. - Patient additionally has a history of frequent UTIs. UA currently showing 1+ leuk esterase and 6-10 WBC with no epithelial cells or bacteria. Currently denying symptoms. Follow urine culture that was obtained 2013. Diet: Heart healthy GI Prophylaxis: N/a DVT Prophylaxis: Lovenox SQ IV fluids: 1L bolus Lines/Tubes: Peripheral IV Code Status: Full code Subjective Date/time seen: 02/24/25 08:03 Interval history: Patient blood pressure is still on soft side. Cardizem drip has been started. Patient is currently on metoprolol 50 mg p.o. b.i.d.. Patient will be monitored until tomorrow. Possible discharge tomorrow Review of Systems Review of Systems: All systems reviewed & are unremarkable except as noted in HPI and below Exam Const: General: comfortable and no acute distress Other: , female, elderly, obese body habitus, nontoxic appearance HENMT: Face/Nose/Sinus: Normal nares present Mouth: Yes moist mucous membranes Eyes: General: appearance normal, both eyes and all related structures Sclera: sclerae normal Pupils: Equal, round and reactive pupils present EOM: EOMs intact bilaterally Resp: Effort & Inspection: normal respiratory effort Auscultation: clear to auscultation bilaterally Cardio: Rate: tachycardic Rhythm: abnormal rhythm Other: No murmur rub GI: Other: Abdomen soft, nondistended, nontender. Normoactive bowel sounds in all quadrants. Skin: General skin exam: normal color and no rashes or lesions noted Neuro: Cranial nerves: Yes Equal, round and reactive pupils present Speech: normal speech Motor exam (neuro): 5/5 motor strength present throughout Sensory Exam: normal sensation Other: A&O x4 Extrem: General: normal to inspection Psych: Mental Status: mental status grossly normal Affect: normal affect Other: Good insight and judgment. Objective Data Vital Signs Vital Signs: Vital Signs - 24 hr 02/23/25 08:30 02/23/25 09:26 02/23/25 09:26 Temperature Pulse Rate 120 H 117 H 117 H Respiratory Rate Blood Pressure Pulse Oximetry Oxygen Delivery 02/23/25 10:00 02/23/25 10:00 02/23/25 10:25 Temperature Pulse Rate 147 H 146 H Respiratory Rate Blood Pressure 130/71 Pulse Oximetry Oxygen Delivery 02/23/25 10:44 02/23/25 11:25 02/23/25 11:29 Temperature 97.7 F Pulse Rate 116 H 101 H Respiratory Rate 20 Blood Pressure 136/67 114/65 Pulse Oximetry 98 Oxygen Delivery Room Air 02/23/25 12:00 02/23/25 12:00 02/23/25 14:00 Temperature Pulse Rate 96 99 93 Respiratory Rate Blood Pressure Pulse Oximetry Oxygen Delivery 02/23/25 14:07 02/23/25 14:07 02/23/25 15:21 Temperature Pulse Rate 105 H Respiratory Rate Blood Pressure 109/72 Pulse Oximetry Oxygen Delivery Room Air 02/23/25 16:00 02/23/25 16:00 02/23/25 16:40 Temperature 98.6 F Pulse Rate 90 110 H 96 Respiratory Rate 18 Blood Pressure 124/71 Pulse Oximetry 92 Oxygen Delivery 02/23/25 18:00 02/23/25 18:00 02/23/25 18:26 Temperature Pulse Rate 104 H 103 H 102 H Respiratory Rate Blood Pressure 124/77 Pulse Oximetry Oxygen Delivery 02/23/25 19:27 02/23/25 20:00 02/23/25 20:44 Temperature 98.0 F Pulse Rate 129 H 112 H 106 H Respiratory Rate 15 Blood Pressure 148/84 H Pulse Oximetry 92 Oxygen Delivery 02/23/25 20:47 02/23/25 21:05 02/23/25 21:19 Temperature Pulse Rate 129 H 106 H 106 H Respiratory Rate 15 Blood Pressure 148/84 H Pulse Oximetry 92 Oxygen Delivery Room Air 02/23/25 22:00 02/23/25 22:00 02/23/25 23:52 Temperature Pulse Rate 86 86 42 L Respiratory Rate Blood Pressure 149/92 H 149/92 H 126/68 Pulse Oximetry 95 Oxygen Delivery 02/23/25 23:54 02/24/25 00:36 02/24/25 04:46 Temperature 98.4 F Pulse Rate 66 66 87 Respiratory Rate 18 18 20 Blood Pressure 126/68 Pulse Oximetry 92 92 93 Oxygen Delivery Room Air Room Air 02/24/25 05:55 08/16/25 08:00 Temperature 97.8 F 97.5 F L Pulse Rate 87 75 Respiratory Rate 20 20 Blood Pressure 160/64 H 123/58 L Pulse Oximetry 93 98 Oxygen Delivery Intake/Output Intake/Output: Intake & Output 02/21/25 02/22/25 02/23/25 02/24/25 23:59 23:59 23:59 23:59 Intake Total 1621.2 1672.7 350 Output Total 550 1450 500 Balance 1071.2 222.7 -150 Meds/Results Medications: Active Medications Generic Name Dose Route Start Last Admin Trade Name Freq PRN Reason Stop Dose Admin Acetaminophen 650 mg 02/22/25 14:26 Acetaminophen 325 Mg Tablet PO Q6H PRN Mild Pain (1-3) or Fever Hydrocodone Bitart/Acetaminophen 1 tab 02/22/25 14:51 02/24/25 02:45 Hydrocodone/Acetaminophen (*Crx) 5-325 Mg Tablet PO 1 tab TID PRN Administration pain (scale score 4-6) Albuterol/Ipratropium 3 ml 02/22/25 14:26 Ipratropium 0.5 Mg/Albuterol Sulfate 2.5 Mg Ampul.Neb 3 Ml INHALATION Q6HRT PRN Shortness Of Breath Or Wheezing Albuterol/Ipratropium 3 ml 02/22/25 14:49 Ipratropium 0.5 Mg/Albuterol Sulfate 2.5 Mg Ampul.Neb 3 Ml INHALATION Q6H PRN shortness of breath or wheezing Benzonatate 100 mg 02/22/25 14:26 Benzonatate 100 Mg Capsule PO TID PRN Cough Duloxetine HCl 60 mg 02/22/25 17:00 02/23/25 17:21 Duloxetine Hcl 60 Mg Capsule.Dr PO 60 mg BID ROSE MARY Administration Enoxaparin Sodium 40 mg 02/23/25 09:00 02/23/25 08:10 Enoxaparin 40 Mg/0.4 Ml Syringe SUB-Q 40 mg DAILY ROSE MARY Administration Gabapentin 800 mg 02/22/25 17:00 02/23/25 21:18 Gabapentin 400 Mg Capsule PO 800 mg QID ROSE MARY Administration Guaifenesin 600 mg 02/22/25 14:26 Guaifenesin 12 Hr 600 Mg Tabcr PO Q12HR PRN Congestion Levofloxacin/Dextrose 750 mg in 150 mls @ 100 mls/hr 02/22/25 12:00 02/22/25 15:52 Levaquin 750 Mg/D5w 150 Ml IVPB 100 mls/hr Q48H ROSE MARY Administration Ibuprofen 800 mg 02/22/25 15:18 Ibuprofen 400 Mg Tablet PO BID PRN BACK PAIN Metoprolol Tartrate 25 mg 02/23/25 09:40 02/23/25 21:19 Metoprolol Tartrate 25 Mg Tablet PO 25 mg Q12HR ROSE MARY Administration Ondansetron HCl 4 mg 02/22/25 14:26 Ondansetron Hcl Odt 4 Mg Tablet PO Q6H PRN Nausea And Vomiting Perflutren Lipid Microsphere 0 ml 02/23/25 08:23 Perflutren Lipid Microspheres 1.5 Ml Vial Diluted To 10 Ml Total Volume IV PUSH 02/26/25 08:23 ONCE PRN adequate visualization Protocol Polyethylene Glycol 17 gm 02/22/25 14:26 Polyethylene Glycol 3350 17 Gm Powd.Pack PO QAM PRN Constipation Prednisone 10 mg 02/23/25 09:00 02/23/25 08:09 Prednisone 10 Mg Tablet PO 02/25/25 09:01 10 mg DAILY ROSE MARY Administration Risperidone 1 mg 02/22/25 21:05 02/23/25 17:21 Risperidone 1 Mg Tablet PO 1 mg TID ROSE MARY Administration Simvastatin 20 mg 02/23/25 09:00 02/23/25 08:10 Simvastatin 20 Mg Tablet PO 20 mg DAILY ROSE MARY Administration Vitamin D 50 mcg 02/23/25 09:00 02/23/25 08:09 Cholecalciferol (Vitamin D3) 25 Mcg (1,000 Units) Tablet PO 50 mcg DAILY ROSE MARY Administration Radiology Results: ITS Impressions Chest X-Ray 02/22/25 10:01 IMPRESSION: 1. Confluent opacity in the lower third of the left hemithorax which has slightly increased in size. Differential includes a combination of pleural fluid with adjacent atelectasis and/or consolidation. An underlying mass is possible. Recommend follow-up to resolution. Consider a chest CT for further assessment. 2.Small patchy opacities in the right lower lung. Differential includes atelectasis or infiltrates. Chest CTA 02/22/25 10:51 IMPRESSION: 1. There are a few small groundglass and patchy opacities in both lungs most prominent in the lower lobes. Differential includes but is not limited to atelectasis/scarring or infiltrates. 2. Small left-sided pleural effusion. Tiny right-sided pleural effusion. 3. Several new low-density indeterminate lesions scattered throughout the liver, the largest measures 1.5 cm in the right lobe of the liver. A Liver mass MRI is recommended. 4. Indeterminate 2.3 cm left adrenal nodule. An adrenal mass MRI is recommended. Labs Labs: Laboratory Results - last 24 hr 02/23/25 09:19 Troponin I 0.033 Quality VTE Prophylaxis VTE prophylaxis: pharmacologic ordered Hospitalist [facility] Advance Care Plan I have confirmed that the patient's Advanced Care Plan is present, code status is documented, or surrogate decision maker is listed in patient medical record.: Yes Medication Reconciliation I have utilized all available resources to obtain, update and review the patients current medications (includes all prescriptions, OTC, herbals, cannabis, and nutritional supplements).: Yes
[2025-02-24] MEDS: ENOXAPARIN 40 MG/0.4 ML SYRINGE SUB-Q (09:55)
[2025-02-24] MEDS: DULoxetine HCL 60 MG CAPSULE.DR PO ×2 (09:55→18:08)
[2025-02-24] MEDS: BENZONATATE 100 MG CAPSULE PO ×3 (09:55→18:08)
[2025-02-24] MEDS: GABAPENTIN 400 MG CAPSULE 800 MG PO ×4 (09:55→20:58)
[2025-02-24] MEDS: SIMVASTATIN 20 MG TABLET PO (09:55)
[2025-02-24] MEDS: CHOLECALCIFEROL (VITAMIN D3) 25 MCG (1,000 UNITS) TABLET 50 MCG PO (09:55)
[2025-02-24] MEDS: guaiFENesin 12 HR 600 MG TABCR PO ×2 (09:56→20:59)
[2025-02-24] MEDS: METOPROLOL TARTRATE 25 MG TABLET PO (09:56)
--- NOTE | 2025-02-24 11:52 | P.PNCA_ITS ---
Progress Note: A&P Assessment and Plan (1) Atrial fibrillation with rapid ventricular response: Code(s): I48.91 - Unspecified atrial fibrillation Status: Acute Assessment and Plan: Recent diagnosis of paroxysmal atrial fibrillation. She now has atrial fibrillation with rapid ventricular response in the setting of acute illness with pneumonia. * Diltiazem drip was discontinued. Will increase her metoprolol tartrate to 50 mg p.o. b.i.d.. Am uncertain as to why her Xarelto has not been continued as an inpatient since he was on at as an outpatient. Will restart her Xarelto 20 mg daily. Discontinue DVT prophylaxis dose of enoxaparin. * Unfortunately, no labs were drawn today. Will check a BMP now especially given the fact she was hypokalemic yesterday * She obviously does not need cardioverted since she is in sinus rhythm (2) Hypertension: Qualifiers: Hypertension type: primary hypertension Qualified Code(s): I10 - Essential (primary) hypertension Code(s): I10 - Essential (primary) hypertension Status: Chronic Assessment and Plan: At goal (3) Hyperlipidemia: Code(s): E78.5 - Hyperlipidemia, unspecified Status: Acute Assessment and Plan: Continue statin. (4) Pneumonia: Qualifiers: Laterality: bilateral Lung location: unspecified part of lung Pneumonia type: due to unspecified organism Qualified Code(s): J18.9 - Pneumonia, unspecified organism Code(s): J18.9 - Pneumonia, unspecified organism Status: Acute Assessment and Plan: Management per hospitalist. (5) Chronic obstructive pulmonary disease: Code(s): J44.9 - Chronic obstructive pulmonary disease, unspecified Status: Chronic Assessment and Plan: Management per hospitalist. Subjective Date/time seen: 02/24/25 11:52 Interval history: 74-year-old admitted for low blood pressure, pneumonia and atrial fibrillation with rapid ventricular response. Date of service 02/24/2025: She converted to sinus rhythm. She does have frequent ventricular ectopy but underlying paced rhythm is sinus rhythm. She still has a cough. No chest pain Review of Systems Review of Systems: All systems reviewed & are unremarkable except as noted in HPI and below Constitutional: Constitutional: Denies difficulty sleeping Eyes: Eyes: Denies blurry vision ENT: Reports Normal hearing present Cardiovascular: Cardiovascular: Denies chest pain Respiratory: Respiratory: Reports cough Genitourinary: Genitourinary: Denies hematuria Exam Narrative: Awake alert oriented appears to be stated age Const: General: comfortable, no acute distress, alert and awake Orientation/consciousness: patient oriented x3 HENMT: Head: normal to inspection Eyes: General: appearance normal, both eyes and all related structures Sclera: sclerae normal Neck: Neck: normal visual inspection, supple and no JVD Resp: Effort & Inspection: normal respiratory effort Auscultation: clear to auscultation bilaterally and diminished lung sounds Cardio: Rate: regular rate Heart sounds: S1 normal heart sound present, S2 normal heart sound present and no murmurs Other: Ectopy noted GI: Auscultation: normal bowel sounds Skin: General skin exam: normal color Neuro: General: patient oriented x3 Speech: normal speech Extrem: General: normal to inspection Psych: Appearance: grossly normal Mental Status: mental status grossly normal Objective Data Vital Signs Vital Signs: Vital Signs - 24 hr 02/23/25 12:00 02/23/25 12:00 02/23/25 14:00 Temperature Pulse Rate 96 99 93 Respiratory Rate Blood Pressure Pulse Oximetry Oxygen Delivery 02/23/25 14:07 02/23/25 14:07 02/23/25 15:21 Temperature Pulse Rate 105 H Respiratory Rate Blood Pressure 109/72 Pulse Oximetry Oxygen Delivery Room Air 02/23/25 16:00 02/23/25 16:00 02/23/25 16:40 Temperature 37.0 C Pulse Rate 90 110 H 96 Respiratory Rate 18 Blood Pressure 124/71 Pulse Oximetry 92 Oxygen Delivery 02/23/25 18:00 02/23/25 18:00 02/23/25 18:26 Temperature Pulse Rate 104 H 103 H 102 H Respiratory Rate Blood Pressure 124/77 Pulse Oximetry Oxygen Delivery 02/23/25 19:27 02/23/25 20:00 02/23/25 20:44 Temperature 36.7 C Pulse Rate 129 H 112 H 106 H Respiratory Rate 15 Blood Pressure 148/84 H Pulse Oximetry 92 Oxygen Delivery 02/23/25 20:47 02/23/25 21:05 02/23/25 21:19 Temperature Pulse Rate 129 H 106 H 106 H Respiratory Rate 15 Blood Pressure 148/84 H Pulse Oximetry 92 Oxygen Delivery Room Air 02/23/25 22:00 02/23/25 22:00 02/23/25 22:00 Temperature Pulse Rate 86 86 86 Respiratory Rate Blood Pressure 149/92 H 149/92 H Pulse Oximetry 95 Oxygen Delivery 02/23/25 23:51 02/23/25 23:52 02/23/25 23:54 Temperature Pulse Rate 42 L 42 L 66 Respiratory Rate 18 Blood Pressure 126/68 Pulse Oximetry 92 Oxygen Delivery Room Air 02/24/25 00:00 02/24/25 00:36 02/24/25 02:00 Temperature 36.9 C Pulse Rate 63 66 72 Respiratory Rate 18 Blood Pressure 126/68 Pulse Oximetry 92 Oxygen Delivery 02/24/25 04:00 02/24/25 04:46 02/24/25 05:55 Temperature 36.6 C Pulse Rate 73 87 87 Respiratory Rate 20 20 Blood Pressure 160/64 H Pulse Oximetry 93 93 Oxygen Delivery Room Air 02/24/25 06:00 02/24/25 08:00 02/24/25 09:56 Temperature 36.4 C L Pulse Rate 69 75 73 Respiratory Rate 20 Blood Pressure 123/58 L Pulse Oximetry 98 Oxygen Delivery 02/24/25 11:41 Temperature 36.4 C Pulse Rate 71 Respiratory Rate 20 Blood Pressure 149/82 H Pulse Oximetry 99 Oxygen Delivery Intake/Output Intake/Output: Intake & Output 02/21/25 02/22/25 02/23/25 02/24/25 23:59 23:59 23:59 23:59 Intake Total 1621.2 1672.7 1165 Output Total 550 1450 502 Balance 1071.2 222.7 663 Meds/Results Medications: Active Medications Generic Name Dose Route Start Last Admin Trade Name Freq PRN Reason Stop Dose Admin Acetaminophen 650 mg 02/22/25 14:26 Acetaminophen 325 Mg Tablet PO Q6H PRN Mild Pain (1-3) or Fever Hydrocodone Bitart/Acetaminophen 1 tab 02/22/25 14:51 02/24/25 10:00 Hydrocodone/Acetaminophen (*Crx) 5-325 Mg Tablet PO 1 tab TID PRN Administration pain (scale score 4-6) Albuterol/Ipratropium 3 ml 02/22/25 14:26 Ipratropium 0.5 Mg/Albuterol Sulfate 2.5 Mg Ampul.Neb 3 Ml INHALATION Q6HRT PRN Shortness Of Breath Or Wheezing Albuterol/Ipratropium 3 ml 02/22/25 14:49 Ipratropium 0.5 Mg/Albuterol Sulfate 2.5 Mg Ampul.Neb 3 Ml INHALATION Q6H PRN shortness of breath or wheezing Benzonatate 100 mg 02/22/25 14:26 02/24/25 09:55 Benzonatate 100 Mg Capsule PO 100 mg TID PRN Administration Cough Duloxetine HCl 60 mg 02/22/25 17:00 02/24/25 09:55 Duloxetine Hcl 60 Mg Capsule.Dr PO 60 mg BID ROSE MARY Administration Enoxaparin Sodium 40 mg 02/23/25 09:00 02/24/25 09:55 Enoxaparin 40 Mg/0.4 Ml Syringe SUB-Q 40 mg DAILY ROSE MARY Administration Gabapentin 800 mg 02/22/25 17:00 02/24/25 09:55 Gabapentin 400 Mg Capsule PO 800 mg QID ROSE MARY Administration Guaifenesin 600 mg 02/22/25 14:26 02/24/25 09:56 Guaifenesin 12 Hr 600 Mg Tabcr PO 600 mg Q12HR PRN Administration Congestion Levofloxacin/Dextrose 750 mg in 150 mls @ 100 mls/hr 02/22/25 12:00 02/22/25 15:52 Levaquin 750 Mg/D5w 150 Ml IVPB 100 mls/hr Q48H ROSE MARY Administration Ibuprofen 800 mg 02/22/25 15:18 Ibuprofen 400 Mg Tablet PO BID PRN BACK PAIN Metoprolol Tartrate 25 mg 02/23/25 09:40 02/24/25 09:56 Metoprolol Tartrate 25 Mg Tablet PO 25 mg Q12HR ROSE MARY Administration Ondansetron HCl 4 mg 02/22/25 14:26 Ondansetron Hcl Odt 4 Mg Tablet PO Q6H PRN Nausea And Vomiting Perflutren Lipid Microsphere 0 ml 02/23/25 08:23 Perflutren Lipid Microspheres 1.5 Ml Vial Diluted To 10 Ml Total Volume IV PUSH 02/26/25 08:23 ONCE PRN adequate visualization Protocol Polyethylene Glycol 17 gm 02/22/25 14:26 Polyethylene Glycol 3350 17 Gm Powd.Pack PO QAM PRN Constipation Prednisone 10 mg 02/23/25 09:00 02/24/25 09:56 Prednisone 10 Mg Tablet PO 02/25/25 09:01 10 mg DAILY ROSE MARY Administration Risperidone 1 mg 02/22/25 21:05 02/24/25 09:55 Risperidone 1 Mg Tablet PO 1 mg TID ROSE MARY Administration Simvastatin 20 mg 02/23/25 09:00 02/24/25 09:55 Simvastatin 20 Mg Tablet PO 20 mg DAILY ROSE MARY Administration Vitamin D 50 mcg 02/23/25 09:00 02/24/25 09:55 Cholecalciferol (Vitamin D3) 25 Mcg (1,000 Units) Tablet PO 50 mcg DAILY ROSE MARY Administration Radiology Results: ITS Impressions Chest X-Ray 02/22/25 10:01 IMPRESSION: 1. Confluent opacity in the lower third of the left hemithorax which has slightly increased in size. Differential includes a combination of pleural fluid with adjacent atelectasis and/or consolidation. An underlying mass is possible. Recommend follow-up to resolution. Consider a chest CT for further assessment. 2.Small patchy opacities in the right lower lung. Differential includes atelectasis or infiltrates. Chest CTA 02/22/25 10:51 IMPRESSION: 1. There are a few small groundglass and patchy opacities in both lungs most prominent in the lower lobes. Differential includes but is not limited to atelectasis/scarring or infiltrates. 2. Small left-sided pleural effusion. Tiny right-sided pleural effusion. 3. Several new low-density indeterminate lesions scattered throughout the liver, the largest measures 1.5 cm in the right lobe of the liver. A Liver mass MRI is recommended. 4. Indeterminate 2.3 cm left adrenal nodule. An adrenal mass MRI is recommended.
[2025-02-24 12:44] LABS: Anion Gap 4 mmol/L (4-12); Blood Urea Nitrogen 26 mg/dL (7-17); Calcium 9.7 mg/dL (8.4-10.2); Carbon Dioxide 26 mmol/L (22-30); Chloride 109 mmol/L (98-107); Estimated CRCL calculation 52 ml/min; Estimated Glomerular Filt Rate > 60; Glucose 139 mg/dL (65-110); Potassium 4.2 mmol/L (3.4-5.0); Sodium 139 mmol/L (137-145)
[2025-02-24] MEDS: levoFLOXacin 750 MG/D5W 150 ML 750 MG/150 ML BAG 100 MG IVPB (13:11)
[2025-02-24 13:15] LABS: Hematocrit 39.5 % (37.0-47.0); Hemoglobin 12.0 g/dL (12.0-15.0); Mean Corpuscular HGB Conc 30.4 g/dl (32-36); Mean Corpuscular Hemoglobin 30.1 pg (26-34); Mean Corpuscular Volume 99.0 fl (80-100); Platelet Count Result 286 k/mm3 (150-375); Red Blood Count 3.99 M/mm3 (4.2-5.4); White Blood Count 11.5 K/mm3 (4.5-10.0)
[2025-02-24 13:23] LABS: Alanine Aminotransferase 13 U/L (6-35); Albumin Level 3.7 g/dL (3.5-5.1); Alkaline Phosphatase 51 U/L (38-126); Aspartate Amino Transferase 23 U/L (14-36); Bilirubin,Total 0.5 mg/dL (0.2-1.3); Magnesium 2.3 mg/dL (1.6-2.3); Total Protein 6.2 g/dL (6.3-8.2)
[2025-02-24] MEDS: RIVAROXABAN 20 MG TABLET PO (18:08)
[2025-02-24] MEDS: METOPROLOL TARTRATE 50 MG TAB PO (20:59)
[2025-02-25] VITALS (7 sets, daily range): BP systolic 142–148; BP diastolic 60–73; PULSE 64–76; RESP 16; TEMP 36.6–36.7; O2SAT 93–96
--- NOTE | 2025-02-25 00:23 | PC.NURSE ---
This patient, Ruchi Norton, was transferred to room 253-01 on 02/25/25 at 0020. Personal belongings sent with patient. Report given to JEAN Haro. Appropriate documentation sent with patient. Pt states that she does not want us to call her emergency contact, Yvonne Ashley at this time to notify her of the room transfer.
[2025-02-25 04:57] LABS: Hematocrit 36.8 % (37.0-47.0); Hemoglobin 11.5 g/dL (12.0-15.0); Mean Corpuscular HGB Conc 31.3 g/dl (32-36); Mean Corpuscular Hemoglobin 30.4 pg (26-34); Mean Corpuscular Volume 97.4 fl (80-100); Platelet Count Result 265 k/mm3 (150-375); Red Blood Count 3.78 M/mm3 (4.2-5.4); White Blood Count 9.1 K/mm3 (4.5-10.0)
[2025-02-25 05:19] LABS: Alanine Aminotransferase 12 U/L (6-35); Albumin Level 3.4 g/dL (3.5-5.1); Alkaline Phosphatase 46 U/L (38-126); Anion Gap 3 mmol/L (4-12); Aspartate Amino Transferase 20 U/L (14-36); Bilirubin,Total 0.5 mg/dL (0.2-1.3); Blood Urea Nitrogen 26 mg/dL (7-17); Calcium 9.5 mg/dL (8.4-10.2); Carbon Dioxide 27 mmol/L (22-30); Chloride 110 mmol/L (98-107); Estimated CRCL calculation 51 ml/min; Estimated Glomerular Filt Rate > 60; Glucose 94 mg/dL (65-110); Potassium 4.1 mmol/L (3.4-5.0); Sodium 140 mmol/L (137-145); Total Protein 5.8 g/dL (6.3-8.2)
[2025-02-25] MEDS: HYDROcodone/acetaminophen (*CRX) 5-325 MG TABLET 1 TAB PO ×2 (05:43→12:18)
--- NOTE | 2025-02-25 08:35 | P.PNCA_ITS ---
Progress Note: A&P Assessment and Plan (1) Atrial fibrillation with rapid ventricular response: Code(s): I48.91 - Unspecified atrial fibrillation Status: Acute Assessment and Plan: Recent diagnosis of paroxysmal atrial fibrillation. She now has atrial fibrillation with rapid ventricular response in the setting of acute illness with pneumonia. * She is tolerating high-dose metoprolol. Continue Xarelto * She is little dyspneic with lying flat. May relate to pneumonia but have slight amount of pulmonary vascular congestion also. Will give furosemide 20 mg IV x1 today * She obviously does not need cardioverted since she is in sinus rhythm (2) Hypertension: Qualifiers: Hypertension type: primary hypertension Qualified Code(s): I10 - Essential (primary) hypertension Code(s): I10 - Essential (primary) hypertension Status: Chronic Assessment and Plan: At goal (3) Hyperlipidemia: Code(s): E78.5 - Hyperlipidemia, unspecified Status: Acute Assessment and Plan: Continue statin. (4) Pneumonia: Qualifiers: Laterality: bilateral Lung location: unspecified part of lung Pneumonia type: due to unspecified organism Qualified Code(s): J18.9 - Pneumonia, unspecified organism Code(s): J18.9 - Pneumonia, unspecified organism Status: Acute Assessment and Plan: Management per hospitalist. (5) Chronic obstructive pulmonary disease: Code(s): J44.9 - Chronic obstructive pulmonary disease, unspecified Status: Chronic Assessment and Plan: Management per hospitalist. Subjective Date/time seen: 02/25/25 08:35 Interval history: 74-year-old admitted for low blood pressure, pneumonia and atrial fibrillation with rapid ventricular response. Date of service 02/25/2025: Still in sinus rhythm. Has frequent supraventricular ectopy but no AFib. Still mildly dyspneic when lying flat Review of Systems Cardiovascular: Cardiovascular: Denies chest pain Respiratory: Respiratory: Denies hemoptysis Gastrointestinal: Gastrointestinal: Denies abdominal pain Exam Narrative: Awake alert oriented appears to be stated age Const: General: comfortable, no acute distress, alert and awake Orientation/consciousness: patient oriented x3 HENMT: Head: normal to inspection Eyes: General: appearance normal, both eyes and all related structures Sclera: sclerae normal Neck: Neck: normal visual inspection, supple and no JVD Carotids: normal carotid upstroke Resp: Effort & Inspection: normal respiratory effort Auscultation: clear to auscultation bilaterally, crackles and diminished lung sounds Cardio: Rate: regular rate Rhythm: regular rhythm Heart sounds: S1 normal heart sound present, S2 normal heart sound present and no murmurs Other: Ectopy noted GI: Auscultation: normal bowel sounds Skin: General skin exam: normal color Neuro: General: patient oriented x3 Cranial nerves: Yes Normal hearing present Speech: normal speech Extrem: General: normal to inspection Psych: Appearance: grossly normal Mental Status: mental status grossly normal Objective Data Vital Signs Vital Signs: Vital Signs - 24 hr 02/24/25 09:56 02/24/25 10:00 02/24/25 11:41 Temperature 36.4 C Pulse Rate 73 77 71 Respiratory Rate 20 Blood Pressure 149/82 H Pulse Oximetry 99 Oxygen Delivery 02/24/25 12:00 02/24/25 14:00 02/24/25 16:00 Temperature 36.5 C Pulse Rate 68 71 70 Respiratory Rate 20 Blood Pressure 96/82 L Pulse Oximetry 92 Oxygen Delivery 02/24/25 16:00 02/24/25 20:00 02/24/25 20:32 Temperature Pulse Rate 73 66 70 Respiratory Rate 20 Blood Pressure Pulse Oximetry 93 Oxygen Delivery Room Air 02/24/25 20:34 02/24/25 20:59 02/24/25 23:47 Temperature 36.7 C 36.7 C Pulse Rate 70 71 80 Respiratory Rate 20 18 Blood Pressure 127/58 L 134/94 H Pulse Oximetry 93 94 Oxygen Delivery 02/25/25 00:00 02/25/25 04:00 02/25/25 04:05 Temperature 36.6 C Pulse Rate 72 76 67 Respiratory Rate 16 Blood Pressure 148/60 H Pulse Oximetry 93 Oxygen Delivery Intake/Output Intake/Output: Intake & Output 02/22/25 02/23/25 02/24/25 02/25/25 23:59 23:59 23:59 23:59 Intake Total 1771.2 1672.7 2345 250 Output Total 550 1450 502 Balance 1221.2 222.7 1843 250 Meds/Results Medications: Active Medications Generic Name Dose Route Start Last Admin Trade Name Freq PRN Reason Stop Dose Admin Acetaminophen 650 mg 02/22/25 14:26 Acetaminophen 325 Mg Tablet PO Q6H PRN Mild Pain (1-3) or Fever Hydrocodone Bitart/Acetaminophen 1 tab 02/22/25 14:51 02/25/25 05:43 Hydrocodone/Acetaminophen (*Crx) 5-325 Mg Tablet PO 1 tab TID PRN Administration pain (scale score 4-6) Albuterol/Ipratropium 3 ml 02/22/25 14:26 Ipratropium 0.5 Mg/Albuterol Sulfate 2.5 Mg Ampul.Neb 3 Ml INHALATION Q6HRT PRN Shortness Of Breath Or Wheezing Albuterol/Ipratropium 3 ml 02/22/25 14:49 Ipratropium 0.5 Mg/Albuterol Sulfate 2.5 Mg Ampul.Neb 3 Ml INHALATION Q6H PRN shortness of breath or wheezing Benzonatate 100 mg 02/22/25 14:26 02/24/25 18:08 Benzonatate 100 Mg Capsule PO 100 mg TID PRN Administration Cough Duloxetine HCl 60 mg 02/22/25 17:00 02/24/25 18:08 Duloxetine Hcl 60 Mg Capsule.Dr PO 60 mg BID ROSE MARY Administration Gabapentin 800 mg 02/22/25 17:00 02/24/25 20:58 Gabapentin 400 Mg Capsule PO 800 mg QID ROSE MARY Administration Guaifenesin 600 mg 02/22/25 14:26 02/24/25 20:59 Guaifenesin 12 Hr 600 Mg Tabcr PO 600 mg Q12HR PRN Administration Congestion Levofloxacin/Dextrose 750 mg in 150 mls @ 100 mls/hr 02/22/25 12:00 02/24/25 14:41 Levaquin 750 Mg/D5w 150 Ml IVPB Infused Q48H ROSE MARY Infusion Ibuprofen 800 mg 02/22/25 15:18 Ibuprofen 400 Mg Tablet PO BID PRN BACK PAIN Metoprolol Tartrate 50 mg 02/24/25 21:00 02/24/25 20:59 Metoprolol Tartrate 50 Mg Tab PO 50 mg Q12HR ROSE MARY Administration Ondansetron HCl 4 mg 02/22/25 14:26 Ondansetron Hcl Odt 4 Mg Tablet PO Q6H PRN Nausea And Vomiting Perflutren Lipid Microsphere 0 ml 02/23/25 08:23 Perflutren Lipid Microspheres 1.5 Ml Vial Diluted To 10 Ml Total Volume IV PUSH 02/26/25 08:23 ONCE PRN adequate visualization Protocol Polyethylene Glycol 17 gm 02/22/25 14:26 Polyethylene Glycol 3350 17 Gm Powd.Pack PO QAM PRN Constipation Prednisone 10 mg 02/23/25 09:00 02/24/25 09:56 Prednisone 10 Mg Tablet PO 02/25/25 09:01 10 mg DAILY ROSE MARY Administration Risperidone 1 mg 02/22/25 21:05 02/24/25 18:08 Risperidone 1 Mg Tablet PO 1 mg TID ROSE MARY Administration Rivaroxaban 20 mg 02/24/25 17:00 02/24/25 18:08 Rivaroxaban 20 Mg Tablet PO 20 mg DAILY@1700 ROSE MARY Administration Simvastatin 20 mg 02/23/25 09:00 02/24/25 09:55 Simvastatin 20 Mg Tablet PO 20 mg DAILY ROSE MARY Administration Vitamin D 50 mcg 02/23/25 09:00 02/24/25 09:55 Cholecalciferol (Vitamin D3) 25 Mcg (1,000 Units) Tablet PO 50 mcg DAILY ROSE MARY Administration Radiology Results: ITS Impressions Chest X-Ray 02/22/25 10:01 IMPRESSION: 1. Confluent opacity in the lower third of the left hemithorax which has slightly increased in size. Differential includes a combination of pleural fluid with adjacent atelectasis and/or consolidation. An underlying mass is possible. Recommend follow-up to resolution. Consider a chest CT for further assessment. 2.Small patchy opacities in the right lower lung. Differential includes atelectasis or infiltrates. Chest CTA 02/22/25 10:51 IMPRESSION: 1. There are a few small groundglass and patchy opacities in both lungs most prominent in the lower lobes. Differential includes but is not limited to atelectasis/scarring or infiltrates. 2. Small left-sided pleural effusion. Tiny right-sided pleural effusion. 3. Several new low-density indeterminate lesions scattered throughout the liver, the largest measures 1.5 cm in the right lobe of the liver. A Liver mass MRI is recommended. 4. Indeterminate 2.3 cm left adrenal nodule. An adrenal mass MRI is recommended. Labs Labs: Laboratory Results - last 24 hr 02/24/25 02/24/25 02/24/25 12:10 12:10 12:10 WBC 11.5 H RBC 3.99 L Hgb 12.0 Hct 39.5 MCV 99.0 MCH 30.1 MCHC 30.4 L RDW 14.2 Plt Count 286 MPV 11.6 H Sodium 139 Cancelled Potassium 4.2 Cancelled Chloride 109 H Carbon Dioxide Anion Gap BUN Creatinine Estim Creat Clear Calc Estimated GFR Glucose Calcium Magnesium Total Bilirubin AST ALT Alkaline Phosphatase Total Protein Albumin 02/24/25 02/24/25 02/24/25 12:10 12:10 12:10 WBC RBC Hgb Hct MCV MCH MCHC RDW Plt Count MPV Sodium Potassium Chloride Cancelled Carbon Dioxide 26 Cancelled Anion Gap 4 Cancelled BUN 26 H Creatinine Estim Creat Clear Calc Estimated GFR Glucose Calcium Magnesium Total Bilirubin AST ALT Alkaline Phosphatase Total Protein Albumin 02/24/25 02/24/25 02/24/25 12:10 12:10 12:10 WBC RBC Hgb Hct MCV MCH MCHC RDW Plt Count MPV Sodium Potassium Chloride Carbon Dioxide Anion Gap BUN Cancelled Creatinine 0.84 Cancelled Estim Creat Clear Calc 52 Cancelled Estimated GFR > 60 Glucose Calcium Magnesium Total Bilirubin AST ALT Alkaline Phosphatase Total Protein Albumin 02/24/25 02/24/25 02/24/25 12:10 12:10 12:10 WBC RBC Hgb Hct MCV MCH MCHC RDW Plt Count MPV Sodium Potassium Chloride Carbon Dioxide Anion Gap BUN Creatinine Estim Creat Clear Calc Estimated GFR Cancelled Glucose 139 H Cancelled Calcium 9.7 Cancelled Magnesium 2.3 Total Bilirubin AST ALT Alkaline Phosphatase Total Protein Albumin 02/24/25 02/24/25 02/24/25 12:10 12:10 12:10 WBC RBC Hgb Hct MCV MCH MCHC RDW Plt Count MPV Sodium Potassium Chloride Carbon Dioxide Anion Gap BUN Creatinine Estim Creat Clear Calc Estimated GFR Glucose Calcium Magnesium Cancelled Total Bilirubin 0.5 Cancelled AST 23 Cancelled ALT 13 Alkaline Phosphatase Total Protein Albumin 02/24/25 02/24/25 02/24/25 12:10 12:10 12:10 WBC RBC Hgb Hct MCV MCH MCHC RDW Plt Count MPV Sodium Potassium Chloride Carbon Dioxide Anion Gap BUN Creatinine Estim Creat Clear Calc Estimated GFR Glucose Calcium Magnesium Total Bilirubin AST ALT Cancelled Alkaline Phosphatase 51 Cancelled Total Protein 6.2 L Cancelled Albumin 3.7 02/24/25 02/25/25 12:10 04:45 WBC 9.1 RBC 3.78 L Hgb 11.5 L Hct 36.8 L MCV 97.4 MCH 30.4 MCHC 31.3 L RDW 14.2 Plt Count 265 MPV 11.4 H Sodium 140 Potassium 4.1 Chloride 110 H Carbon Dioxide 27 Anion Gap 3 L BUN 26 H Creatinine 0.86 Estim Creat Clear Calc 51 Estimated GFR > 60 Glucose 94 Calcium 9.5 Magnesium Total Bilirubin 0.5 AST 20 ALT 12 Alkaline Phosphatase 46 Total Protein 5.8 L Albumin Cancelled 3.4 L
[2025-02-25] MEDS: BENZONATATE 100 MG CAPSULE PO ×2 (09:06→12:18)
[2025-02-25] MEDS: GABAPENTIN 400 MG CAPSULE 800 MG PO ×2 (09:06→12:17)
[2025-02-25] MEDS: DULoxetine HCL 60 MG CAPSULE.DR PO (09:06)
[2025-02-25] MEDS: FUROSEMIDE INJ 40 MG/4 ML VIAL 20 MG IV PUSH (09:06)
[2025-02-25] MEDS: CHOLECALCIFEROL (VITAMIN D3) 25 MCG (1,000 UNITS) TABLET 50 MCG PO (09:07)
[2025-02-25] MEDS: guaiFENesin 12 HR 600 MG TABCR PO (09:07)
[2025-02-25] MEDS: SIMVASTATIN 20 MG TABLET PO (09:07)
[2025-02-25] MEDS: METOPROLOL TARTRATE 50 MG TAB PO (09:07)
[2025-02-25] MEDS: IBUPROFEN 400 MG TABLET 800 MG PO (09:07)
--- NOTE | 2025-02-25 09:17 | P.PNIM_ITS ---
Progress Note: A&P Assessment and Plan (1) Atrial fibrillation with rapid ventricular response: Code(s): I48.91 - Unspecified atrial fibrillation Status: Acute Assessment and Plan: - initial EKG showed AFib RVR with a brain conduction or ventricular premature complexes as well as nonspecific ST/T-wave abnormality in high lateral leads, rate 165. - repeat EKG done same day showed a decrease in heart rate, remains in AFib RVR, rate 103 - given metoprolol 5 mg IV push x3 and diltiazem 10 mg IV x1 (HR 160s -> 120s). Will start patient on diltiazem gtt with 10 mg IV push upon initiation. RN instructed to hold gtt if HR is controlled with second IV push of Cardizem. -cardiology consulted -DC Cardizem drip -Continue Metoprolol 50 mg PO BID - TSH normal - telemetry monitoring and admission to IMU for close monitoring (2) Pneumonia: Qualifiers: Laterality: bilateral Lung location: unspecified part of lung Pneumonia type: due to unspecified organism Qualified Code(s): J18.9 - Pneumonia, unspecified organism Code(s): J18.9 - Pneumonia, unspecified organism Status: Acute Assessment and Plan: - recently diagnosed with pneumonia with doxycycline and a steroid course which were prescribed on 02/14. - CXR: 1. Confluent opacity in the lower third of the left hemithorax which has slightly increased in size. Differential includes a combination of pleural fluid with adjacent atelectasis and/or consolidation. An underlying mass is possible. Recommend follow-up to resolution. Consider a chest CT for further assessment. 2.Small patchy opacities in the right lower lung. Differential includes atelectasis or infiltrates. - chest CTA: 1. There are a few small groundglass and patchy opacities in both lungs most prominent in the lower lobes. Differential includes but is not limited to atelectasis/scarring or infiltrates. 2. Small left-sided pleural effusion. Tiny right-sided pleural effusion. 3. Several new low-density indeterminate lesions scattered throughout the liver, the largest measures 1.5 cm in the right lobe of the liver. A Liver mass MRI is recommended. 4. Indeterminate 2.3 cm left adrenal nodule. An adrenal mass MRI is recommended. - started on doxycycline outpatient. -Will continue as Levaquin inpatient given patient has not had resolution of infiltrates on imaging. -MRSA PCR negative and sputum culture (if obtainable) -supportive care -no current supplemental O2 requirement (3) Acute kidney injury: Code(s): N17.9 - Acute kidney failure, unspecified Status: Acute Assessment and Plan: - mild NAT noted upon admission. Creatinine 1.25, BUN 26, GFR 42 - baseline creatinine 0.8-0.9 - given 1 L bolus in the ED - trend renal function (4) CHF (congestive heart failure): Qualifiers: Heart failure chronicity: chronic Heart failure type: diastolic Qualified Code(s): I50.32 - Chronic diastolic (congestive) heart failure Code(s): I50.9 - Heart failure, unspecified Status: Acute Assessment and Plan: - BNP 6470 - small left pleural effusion and tiny right pleural effusion noted on CTA - most recent echo (2022): Normal systolic function with an EF of 55-60%, abnormal diastolic function, mild concentric LV wall thickness, mild pulmonary hypertension, trivial pericardial effusion. See report for details. - patient is not on a daily diuretic at home, given 1 time dose of Lasix 40 mg IV. Does not appear volume overloaded on exam. Will hold on further diuresis. - monitor I&Os and daily weights - trend renal function (5) COPD (chronic obstructive pulmonary disease): Qualifiers: COPD type: unspecified COPD Qualified Code(s): J44.9 - Chronic obstructive pulmonary disease, unspecified Code(s): J44.9 - Chronic obstructive pulmonary disease, unspecified Status: Chronic Assessment and Plan: - no current evidence of exacerbation on exam - DuoNebs PRN - continue steroid course (6) Diabetes mellitus: Qualifiers: Diabetes mellitus type: type 2 Diabetes mellitus custodial insulin use: without ocean transportation intermediary use Diabetes mellitus complication status: without complication Qualified Code(s): E11.9 - Type 2 diabetes mellitus without complications Code(s): E11.9 - Type 2 diabetes mellitus without complications Status: Chronic Assessment and Plan: - history of diet controlled diabetes, initial glucose 130 - A1C 5.8% in 2023, update (7) Hypertension: Qualifiers: Hypertension type: primary hypertension Qualified Code(s): I10 - Essential (primary) hypertension Code(s): I10 - Essential (primary) hypertension Status: Chronic Assessment and Plan: - chronic, currently 165/99. Originally presented here for low blood pressure readings at home. Lowest reading since arrival has been no 124/73. - metoprolol 50 mg PO BID - monitor Plan - Patient will need outpatient follow-up on an indeterminate 2.3 cm left adrenal nodule and for several new low-density indeterminate lesions scattered throughout the liver. Liver MRI and adrenal mass MRI were recommended. - Patient additionally has a history of frequent UTIs. UA currently showing 1+ leuk esterase and 6-10 WBC with no epithelial cells or bacteria. Currently denying symptoms. Follow urine culture that was obtained 2013. Diet: Heart healthy GI Prophylaxis: N/a DVT Prophylaxis: Lovenox SQ IV fluids: 1L bolus Lines/Tubes: Peripheral IV Code Status: Full code Subjective Date/time seen: 02/25/25 09:17 Interval history: Cardizem drip has been stopped on 02/23 at 8:00 p.m. Patient continues to tolerate metoprolol tartrate 50 mg p.o. b.i.d. and the heart rate in 70's. UC is pending. Review of Systems Review of Systems: All systems reviewed & are unremarkable except as noted in HPI and below Exam Const: General: comfortable and no acute distress Other: , female, elderly, obese body habitus, nontoxic appearance HENMT: Face/Nose/Sinus: Normal nares present Mouth: Yes moist mucous membranes Eyes: General: appearance normal, both eyes and all related structures Sclera: sclerae normal Pupils: Equal, round and reactive pupils present EOM: EOMs intact bilaterally Resp: Effort & Inspection: normal respiratory effort Auscultation: clear to auscultation bilaterally Cardio: Rate: tachycardic Rhythm: abnormal rhythm Other: No murmur rub GI: Other: Abdomen soft, nondistended, nontender. Normoactive bowel sounds in all quadrants. Skin: General skin exam: normal color and no rashes or lesions noted Neuro: Cranial nerves: Yes Equal, round and reactive pupils present Speech: normal speech Motor exam (neuro): 5/5 motor strength present throughout Sensory Exam: normal sensation Other: A&O x4 Extrem: General: normal to inspection Psych: Mental Status: mental status grossly normal Affect: normal affect Other: Good insight and judgment. Objective Data Vital Signs Vital Signs: Vital Signs - 24 hr 02/24/25 09:56 02/24/25 10:00 02/24/25 11:41 Temperature 97.6 F Pulse Rate 73 77 71 Respiratory Rate 20 Blood Pressure 149/82 H Pulse Oximetry 99 Oxygen Delivery 02/24/25 12:00 02/24/25 14:00 02/24/25 16:00 Temperature 97.7 F Pulse Rate 68 71 70 Respiratory Rate 20 Blood Pressure 96/82 L Pulse Oximetry 92 Oxygen Delivery 02/24/25 16:00 02/24/25 20:00 02/24/25 20:32 Temperature Pulse Rate 73 66 70 Respiratory Rate 20 Blood Pressure Pulse Oximetry 93 Oxygen Delivery Room Air 02/24/25 20:34 02/24/25 20:59 02/24/25 23:47 Temperature 98.1 F 98.0 F Pulse Rate 70 71 80 Respiratory Rate 20 18 Blood Pressure 127/58 L 134/94 H Pulse Oximetry 93 94 Oxygen Delivery 02/25/25 00:00 02/25/25 04:00 02/25/25 04:05 Temperature 97.9 F Pulse Rate 72 76 67 Respiratory Rate 16 Blood Pressure 148/60 H Pulse Oximetry 93 Oxygen Delivery 02/25/25 09:07 Temperature Pulse Rate 76 Respiratory Rate Blood Pressure Pulse Oximetry Oxygen Delivery Intake/Output Intake/Output: Intake & Output 02/22/25 02/23/25 02/24/25 02/25/25 23:59 23:59 23:59 23:59 Intake Total 1771.2 1672.7 2345 490 Output Total 550 1450 502 Balance 1221.2 222.7 1843 490 Meds/Results Medications: Active Medications Generic Name Dose Route Start Last Admin Trade Name Freq PRN Reason Stop Dose Admin Acetaminophen 650 mg 02/22/25 14:26 Acetaminophen 325 Mg Tablet PO Q6H PRN Mild Pain (1-3) or Fever Hydrocodone Bitart/Acetaminophen 1 tab 02/22/25 14:51 02/25/25 05:43 Hydrocodone/Acetaminophen (*Crx) 5-325 Mg Tablet PO 1 tab TID PRN Administration pain (scale score 4-6) Albuterol/Ipratropium 3 ml 02/22/25 14:26 Ipratropium 0.5 Mg/Albuterol Sulfate 2.5 Mg Ampul.Neb 3 Ml INHALATION Q6HRT PRN Shortness Of Breath Or Wheezing Albuterol/Ipratropium 3 ml 02/22/25 14:49 Ipratropium 0.5 Mg/Albuterol Sulfate 2.5 Mg Ampul.Neb 3 Ml INHALATION Q6H PRN shortness of breath or wheezing Benzonatate 100 mg 02/22/25 14:26 02/25/25 09:06 Benzonatate 100 Mg Capsule PO 100 mg TID PRN Administration Cough Duloxetine HCl 60 mg 02/22/25 17:00 02/25/25 09:06 Duloxetine Hcl 60 Mg Capsule.Dr PO 60 mg BID ROSE MARY Administration Gabapentin 800 mg 02/22/25 17:00 02/25/25 09:06 Gabapentin 400 Mg Capsule PO 800 mg QID ROSE MARY Administration Guaifenesin 600 mg 02/22/25 14:26 02/25/25 09:07 Guaifenesin 12 Hr 600 Mg Tabcr PO 600 mg Q12HR PRN Administration Congestion Levofloxacin/Dextrose 750 mg in 150 mls @ 100 mls/hr 02/22/25 12:00 02/24/25 14:41 Levaquin 750 Mg/D5w 150 Ml IVPB Infused Q48H ROSE MARY Infusion Ibuprofen 800 mg 02/22/25 15:18 02/25/25 09:07 Ibuprofen 400 Mg Tablet PO 800 mg BID PRN Administration BACK PAIN Metoprolol Tartrate 50 mg 02/24/25 21:00 02/25/25 09:07 Metoprolol Tartrate 50 Mg Tab PO 50 mg Q12HR ROSE MARY Administration Ondansetron HCl 4 mg 02/22/25 14:26 Ondansetron Hcl Odt 4 Mg Tablet PO Q6H PRN Nausea And Vomiting Perflutren Lipid Microsphere 0 ml 02/23/25 08:23 Perflutren Lipid Microspheres 1.5 Ml Vial Diluted To 10 Ml Total Volume IV PUSH 02/26/25 08:23 ONCE PRN adequate visualization Protocol Polyethylene Glycol 17 gm 02/22/25 14:26 Polyethylene Glycol 3350 17 Gm Powd.Pack PO QAM PRN Constipation Risperidone 1 mg 02/22/25 21:05 02/25/25 09:07 Risperidone 1 Mg Tablet PO 1 mg TID ROSE MARY Administration Rivaroxaban 20 mg 02/24/25 17:00 02/24/25 18:08 Rivaroxaban 20 Mg Tablet PO 20 mg DAILY@1700 ROSE MARY Administration Simvastatin 20 mg 02/23/25 09:00 02/25/25 09:07 Simvastatin 20 Mg Tablet PO 20 mg DAILY ROSE MARY Administration Vitamin D 50 mcg 02/23/25 09:00 02/25/25 09:07 Cholecalciferol (Vitamin D3) 25 Mcg (1,000 Units) Tablet PO 50 mcg DAILY ROSE MARY Administration Radiology Results: ITS Impressions Chest X-Ray 02/22/25 10:01 IMPRESSION: 1. Confluent opacity in the lower third of the left hemithorax which has slightly increased in size. Differential includes a combination of pleural fluid with adjacent atelectasis and/or consolidation. An underlying mass is possible. Recommend follow-up to resolution. Consider a chest CT for further assessment. 2.Small patchy opacities in the right lower lung. Differential includes atelectasis or infiltrates. Chest CTA 02/22/25 10:51 IMPRESSION: 1. There are a few small groundglass and patchy opacities in both lungs most prominent in the lower lobes. Differential includes but is not limited to atelectasis/scarring or infiltrates. 2. Small left-sided pleural effusion. Tiny right-sided pleural effusion. 3. Several new low-density indeterminate lesions scattered throughout the liver, the largest measures 1.5 cm in the right lobe of the liver. A Liver mass MRI is recommended. 4. Indeterminate 2.3 cm left adrenal nodule. An adrenal mass MRI is recommended. Labs Labs: Laboratory Results - last 24 hr 02/24/25 02/24/25 02/24/25 12:10 12:10 12:10 WBC 11.5 H RBC 3.99 L Hgb 12.0 Hct 39.5 MCV 99.0 MCH 30.1 MCHC 30.4 L RDW 14.2 Plt Count 286 MPV 11.6 H Sodium 139 Cancelled Potassium 4.2 Cancelled Chloride 109 H Carbon Dioxide Anion Gap BUN Creatinine Estim Creat Clear Calc Estimated GFR Glucose Calcium Magnesium Total Bilirubin AST ALT Alkaline Phosphatase Total Protein Albumin 02/24/25 02/24/25 02/24/25 12:10 12:10 12:10 WBC RBC Hgb Hct MCV MCH MCHC RDW Plt Count MPV Sodium Potassium Chloride Cancelled Carbon Dioxide 26 Cancelled Anion Gap 4 Cancelled BUN 26 H Creatinine Estim Creat Clear Calc Estimated GFR Glucose Calcium Magnesium Total Bilirubin AST ALT Alkaline Phosphatase Total Protein Albumin 02/24/25 02/24/25 02/24/25 12:10 12:10 12:10 WBC RBC Hgb Hct MCV MCH MCHC RDW Plt Count MPV Sodium Potassium Chloride Carbon Dioxide Anion Gap BUN Cancelled Creatinine 0.84 Cancelled Estim Creat Clear Calc 52 Cancelled Estimated GFR > 60 Glucose Calcium Magnesium Total Bilirubin AST ALT Alkaline Phosphatase Total Protein Albumin 02/24/25 02/24/25 02/24/25 12:10 12:10 12:10 WBC RBC Hgb Hct MCV MCH MCHC RDW Plt Count MPV Sodium Potassium Chloride Carbon Dioxide Anion Gap BUN Creatinine Estim Creat Clear Calc Estimated GFR Cancelled Glucose 139 H Cancelled Calcium 9.7 Cancelled Magnesium 2.3 Total Bilirubin AST ALT Alkaline Phosphatase Total Protein Albumin 02/24/25 02/24/25 02/24/25 12:10 12:10 12:10 WBC RBC Hgb Hct MCV MCH MCHC RDW Plt Count MPV Sodium Potassium Chloride Carbon Dioxide Anion Gap BUN Creatinine Estim Creat Clear Calc Estimated GFR Glucose Calcium Magnesium Cancelled Total Bilirubin 0.5 Cancelled AST 23 Cancelled ALT 13 Alkaline Phosphatase Total Protein Albumin 02/24/25 02/24/25 02/24/25 12:10 12:10 12:10 WBC RBC Hgb Hct MCV MCH MCHC RDW Plt Count MPV Sodium Potassium Chloride Carbon Dioxide Anion Gap BUN Creatinine Estim Creat Clear Calc Estimated GFR Glucose Calcium Magnesium Total Bilirubin AST ALT Cancelled Alkaline Phosphatase 51 Cancelled Total Protein 6.2 L Cancelled Albumin 3.7 02/24/25 02/25/25 12:10 04:45 WBC 9.1 RBC 3.78 L Hgb 11.5 L Hct 36.8 L MCV 97.4 MCH 30.4 MCHC 31.3 L RDW 14.2 Plt Count 265 MPV 11.4 H Sodium 140 Potassium 4.1 Chloride 110 H Carbon Dioxide 27 Anion Gap 3 L BUN 26 H Creatinine 0.86 Estim Creat Clear Calc 51 Estimated GFR > 60 Glucose 94 Calcium 9.5 Magnesium Total Bilirubin 0.5 AST 20 ALT 12 Alkaline Phosphatase 46 Total Protein 5.8 L Albumin Cancelled 3.4 L Quality VTE Prophylaxis VTE prophylaxis: pharmacologic ordered Hospitalist MIPS Advance Care Plan I have confirmed that the patient's Advanced Care Plan is present, code status is documented, or surrogate decision maker is listed in patient medical record.: Yes Medication Reconciliation I have utilized all available resources to obtain, update and review the patients current medications (includes all prescriptions, OTC, herbals, cannabis, and nutritional supplements).: Yes
--- NOTE | 2025-02-25 14:58 | P.DS_ITS ---
DS: Admitting Diagnosis Discharge Date 02/25/2025 Admitting Diagnosis atrial fibrillation DS: Discharge Diagnosis Discharge Diagnosis (1) Atrial fibrillation with rapid ventricular response: Code(s): I48.91 - Unspecified atrial fibrillation Status: Acute Assessment and Plan: please refer to hospital course for brief summary - initial EKG showed AFib RVR with a brain conduction or ventricular premature complexes as well as nonspecific ST/T-wave abnormality in high lateral leads, rate 165. - repeat EKG done same day showed a decrease in heart rate, remains in AFib RVR, rate 103 - given metoprolol 5 mg IV push x3 and diltiazem 10 mg IV x1 (HR 160s -> 120s). Will start patient on diltiazem gtt with 10 mg IV push upon initiation. RN instructed to hold gtt if HR is controlled with second IV push of Cardizem. -cardiology consulted -DC Cardizem drip -Continue Metoprolol 50 mg PO BID - TSH normal - telemetry monitoring and admission to IMU for close monitoring (2) Pneumonia: Qualifiers: Laterality: bilateral Lung location: unspecified part of lung Pneumonia type: due to unspecified organism Qualified Code(s): J18.9 - Pneumonia, unspecified organism Code(s): J18.9 - Pneumonia, unspecified organism Status: Acute Assessment and Plan: - recently diagnosed with pneumonia with doxycycline and a steroid course which were prescribed on 02/14. - CXR: 1. Confluent opacity in the lower third of the left hemithorax which has slightly increased in size. Differential includes a combination of pleural fluid with adjacent atelectasis and/or consolidation. An underlying mass is possible. Recommend follow-up to resolution. Consider a chest CT for further assessment. 2.Small patchy opacities in the right lower lung. Differential includes atelectasis or infiltrates. - chest CTA: 1. There are a few small groundglass and patchy opacities in both lungs most prominent in the lower lobes. Differential includes but is not limited to atelectasis/scarring or infiltrates. 2. Small left-sided pleural effusion. Tiny right-sided pleural effusion. 3. Several new low-density indeterminate lesions scattered throughout the liver, the largest measures 1.5 cm in the right lobe of the liver. A Liver mass MRI is recommended. 4. Indeterminate 2.3 cm left adrenal nodule. An adrenal mass MRI is recommended. - started on doxycycline outpatient. -Will continue as Levaquin inpatient given patient has not had resolution of infiltrates on imaging. -MRSA PCR negative and sputum culture (if obtainable) -supportive care -no current supplemental O2 requirement (3) Acute kidney injury: Code(s): N17.9 - Acute kidney failure, unspecified Status: Acute Assessment and Plan: - mild NAT noted upon admission. Creatinine 1.25, BUN 26, GFR 42 - baseline creatinine 0.8-0.9 - given 1 L bolus in the ED - trend renal function (4) CHF (congestive heart failure): Qualifiers: Heart failure chronicity: chronic Heart failure type: diastolic Qualified Code(s): I50.32 - Chronic diastolic (congestive) heart failure Code(s): I50.9 - Heart failure, unspecified Status: Acute Assessment and Plan: - BNP 6470 - small left pleural effusion and tiny right pleural effusion noted on CTA - most recent echo (2022): Normal systolic function with an EF of 55-60%, abnormal diastolic function, mild concentric LV wall thickness, mild pulmonary hypertension, trivial pericardial effusion. See report for details. - patient is not on a daily diuretic at home, given 1 time dose of Lasix 40 mg IV. Does not appear volume overloaded on exam. Will hold on further diuresis. 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 insulin use: without terminal computer operator use Diabetes mellitus complication status: without complication Qualified Code(s): E11.9 - Type 2 diabetes mellitus without complications Code(s): E11.9 - Type 2 diabetes mellitus without complications Status: Chronic Assessment and Plan: - history of diet controlled diabetes, initial glucose 130 - A1C 5.8% in 2023, update (7) Hypertension: Qualifiers: Hypertension type: primary hypertension Qualified Code(s): I10 - Essential (primary) hypertension Code(s): I10 - Essential (primary) hypertension Status: Chronic Assessment and Plan: - chronic, currently 165/99. Originally presented here for low blood pressure readings at home. Lowest reading since arrival has been no 124/73. - metoprolol 50 mg PO BID - monitor Plan - Patient will need outpatient follow-up on an indeterminate 2.3 cm left adrenal nodule and for several new low-density indeterminate lesions scattered throughout the liver. Liver MRI and adrenal mass MRI were recommended. - Patient additionally has a history of frequent UTIs. UA currently showing 1+ leuk esterase and 6-10 WBC with no epithelial cells or bacteria. Currently denying symptoms. Follow urine culture that was obtained 2013. DS: Summary Hospital Course Hospital Course: 74 y/o F with PMH of atrial fibrillation, congestive heart failure, mild pulmonary hypertension, diet-controlled diabetes, GERD, hypertension, hyperlipidemia and COPD presents here with hypotension and palpitations. The patient presents here from home for further evaluation of low blood pressure. Due to her history of atrial fibrillation and hypertension she regularly checks her blood pressure at home. She reports over the last 2 days her blood pressure has been reading lower than usual which prompted her to hold her metoprolol. Lowest blood pressure recorded at home had a systolic of 72. She attempted to rectify the situation by increasing her water and salt intake. She reports historically that her blood pressure has been lower when her atrial fibrillation worsens. She is additionally endorsing palpitations. She denies weight gain or lower extremity edema. Of note, the patient was recently diagnosed with pneumonia with doxycycline and a steroid course which were prescribed on 02/14. Initial VS at presentation: 98.4? F, HR 164, R 22, 124/73, and 96% on RA. ED workup showed: WBC 11.5, no anemia, INR 1.2, no significant electrolyte derangements, creatinine 1.25 and GFR 42 (0.94 and GFR 59 on 11/22/24), glucose 130, lactic 1.0, BNP 6470, CRP negative, initial troponin 0.018, and UA showed 1+ leuk esterase and 6-10 WBC with no epithelial cells or bacteria. CXR showed confluent opacity in the lower 3rd of the left hemithorax which is a slightly increased in size, small patchy opacities in the right lower lung. CTA of the chest showed a few small ground-glass and patchy opacities in both lungs more prominent in the lower lungs, small left pleural effusion, tiny right pleural effusion, several low-density indeterminate lesions scattered throughout the liver, indeterminate 2.3 cm left adrenal nodule. 02/25/2025: Cardizem drip has been stopped on 02/23 at 8:00 p.m. Patient continues to tolerate metoprolol tartrate 50 mg p.o. b.i.d. and the heart rate in 70's. UC is pending. Patient denies any urinary symptoms. Given the option to stay in the hospital until the urine culture results but patient reports she wants to go home. Discussed with care coordination for home health. Patient was given home health options and will be calling them on Wednesday. Advise the patient to follow up as outpatient in regards to CTA of the chest showed a few small ground-glass and patchy opacities in both lungs more prominent in the lower lungs, small left pleural effusion, tiny right pleural effusion, several low-density indeterminate lesions scattered throughout the liver, indeterminate 2.3 cm left adrenal nodule. Patient agrees with the plan On the day of discharge, the patient was seen and examined. Vital signs were stable. Physical exam were stable and labs were reviewed at length. Discharge instructions, medications, and follow-up appointments were discussed with the manjit delgado at length and all day questions were answered. ER warnings were given. Status at Discharge Cognitive/behavioral status at discharge: Stable Time Spent with Patient Time attestation: Total time spent providing and/or coordinating discharge services: 45 minutes Exam Const: Other: , female, elderly, obese body habitus, nontoxic appearance Cardio: Other: No murmur rub GI: Other: Abdomen soft, nondistended, nontender. Normoactive bowel sounds in all quadrants. Neuro: Other: A&O x4 Psych: Other: Good insight and judgment. DS: Data Data Completed and Pending Labs on day of discharge: Labs from last 24 hours 02/25/25 04:45 WBC 9.1 RBC 3.78 L Hgb 11.5 L Hct 36.8 L MCV 97.4 MCH 30.4 MCHC 31.3 L RDW 14.2 Plt Count 265 MPV 11.4 H Sodium 140 Potassium 4.1 Chloride 110 H Carbon Dioxide 27 Anion Gap 3 L BUN 26 H Creatinine 0.86 Estim Creat Clear Calc 51 Estimated GFR > 60 Glucose 94 Calcium 9.5 Total Bilirubin 0.5 AST 20 ALT 12 Alkaline Phosphatase 46 Total Protein 5.8 L Albumin 3.4 L Preliminary micro results at discharge 02/22/25 13:26 Blood Culture - Preliminary Blood 02/22/25 13:26 Blood Culture - Preliminary Blood 02/22/25 11:05 - Preliminary Urine Clean Catch Discharge Plan Discharge Attending physician on discharge: Dirk Foster Consulting providers: Diego Crandall Discharging Clinician: Dirk Foster Anticipated Discharge Date/Time: 02/25/25 15:03 Patient Disposition: Home Activity: as tolerated Diet: heart healthy Discharge Instructions: Patient will need outpatient follow-up on an indeterminate 2.3 cm left adrenal nodule and for several new low-density indeterminate lesions scattered throughout the liver. Liver MRI and adrenal mass MRI were recommended. Check blood pressure 1 to 2 times a day. Record and bring into your doctor for review. Call your doctor if your blood pressure is greater than 180/110 or less than 90/45. Walk with cane or other assist device. Take precautions to avoid falls. Rise slowly from a lying or sitting position. Pause before standing or walking. Contact your doctor or call 911 and come to the Emergency Room if you have any type of trauma, lightheadedness with standing or other worrisome symptoms. Avoid NSAIDs (ibuprofen, naproxen, Aleve). Tylenol is safe to take. Follow-up with your primary care provider in 1-2 weeks. Please call for appointment. Follow-up with Cardiology in 2-4 weeks. Please call for an appointment. Thank you for using [facility] for your health care needs. Patient Instructions: Antibiotic Form, Metoprolol (By mouth), Diltiazem (By injection), Rivaroxaban (By mouth), Heart Failure (DC), A-fib (Atrial Fibrillation) (DC), Pneumonia (DC) Patient Language: Moldovan Stand Alone Forms: General Discharge Information Follow-up/Referrals: Diego Crandall MD [Physician] - Diego Mina MD [Primary Care Provider] - (Patient will need outpatient follow-up on an indeterminate 2.3 cm left adrenal nodule and for several new low-density indeterminate lesions scattered throughout the liver. Liver MRI and adrenal mass MRI were recommended.) Discharge Medications: New polyethylene glycol 3350 [Miralax] 17 gram Powder In Packet 17 g PO QAM PRN (Reason: Constipation) Qty: 14 0RF metoprolol tartrate 50 mg Tablet 50 mg PO Q12HR Qty: 60 0RF benzonatate 100 mg Capsule 100 mg PO TID PRN (Reason: Cough) Qty: 20 0RF levofloxacin 750 mg tablet 750 mg PO DAILY Qty: 3 0RF Continued duloxetine [Cymbalta] 60 mg capsule,delayed release(DR/EC) 60 mg PO BID Rx Instructions: TAKE 1 CAPSULE PO BID; cholecalciferol (vitamin D3) 50 mcg (2,000 unit) capsule See Rx Instructions .ROUTE .COMPLEX Qty: 90 3RF Dose Instruction: TAKE 1 CAPSULE BY MOUTH DAILY Rx Instructions: TAKE 1 CAPSULE BY MOUTH DAILY albuterol sulfate [Ventolin HFA] 90 mcg/actuation HFA aerosol inhaler 1 - 2 inh inhalation Q4-6H PRN (Reason: shortness of breath or wheezing) Qty: 8.5 5RF risperidone 1 mg tablet 1 mg PO TID ibuprofen 800 mg tablet See Rx Instructions .ROUTE .COMPLEX PRN (Reason: Pain) Rx Instructions: TAKE 1 TABLET BY MOUTH TWICE DAILY WITH FOOD PRN for back pain hydrocodone-acetaminophen 5-325 mg tablet 1 tablet PO TID PRN (Reason: pain (scale score 4-6)) rivaroxaban [Xarelto] 20 mg PO DAILY gabapentin 800 mg tablet See Rx Instructions .ROUTE .COMPLEX Qty: 360 2RF Dose Instruction: TAKE 1 TABLET BY MOUTH FOUR TIMES DAILY Rx Instructions: TAKE 1 TABLET BY MOUTH FOUR TIMES DAILY simvastatin 20 mg tablet See Rx Instructions .ROUTE .COMPLEX Qty: 90 2RF Dose Instruction: TAKE 1 TABLET BY MOUTH DAILY Rx Instructions: TAKE 1 TABLET BY MOUTH DAILY ipratropium-albuterol 0.5 mg-3 mg(2.5 mg base)/3 mL solution for nebulization 3 ml inhalation Q6H PRN (Reason: shortness of breath or wheezing) prednisone 10 mg tablet 10 mg PO DIRECTED Qty: 30 0RF Rx Instructions: Take 4 tablets by mouth daily for 3 days, then 3 tablets for 3 days, 2 tablets for 3 days, 1 tablet for 3 days Discontinued metoprolol tartrate 25 mg tablet See Rx Instructions .ROUTE .COMPLEX Patient Comments: Held for 2 days Rx Instructions: Take 1/2 tab in the AM and 1 tab in the PM Date of admission: 02/23/25 14:08 Primary Care Provider: Diego Mina Admitting Provider: Georgiana Ny Attending physician on admission: Georgiana Ny Condition: Guarded Prognosis
== END 2025-02-25 15:45 | disposition home or self-care (01) | DRG 308 ==
LOC: ANHED 12:16 → ANHIMU 13:10 → ANH2MED 02-25 15:03 → ANHIMU 02-27 11:53
PROVIDERS: Internal Medicine Cardiovascular Disease; Student in an Organized Health Care Education/Training Program; Admitting Provider Family Medicine; Emergency Provider Registered Nurse; PCP Emergency Medicine; Visit Provider General Practice
DX: I48.0 Paroxysmal atrial fibrillation (principal); J18.9 Pneumonia, unspecified organism; N17.9 Acute kidney failure, unspecified; I50.32 Chronic diastolic (congestive) heart failure; J44.0 Chronic obstructive pulmonary disease with (acute) lower respiratory infection; N39.0 Urinary tract infection, site not specified; I11.0 Hypertensive heart disease with heart failure; E11.9 Type 2 diabetes mellitus without complications; E78.5 Hyperlipidemia, unspecified; D64.9 Anemia, unspecified; F41.8 Other specified anxiety disorders; K21.9 Gastro-esophageal reflux disease without esophagitis; M19.90 Unspecified osteoarthritis, unspecified site; G89.4 Chronic pain syndrome; Z98.1 Arthrodesis status; Z90.49 Acquired absence of other specified parts of digestive tract; Z87.891 Personal history of nicotine dependence
CPT/HCPCS: 36415; 71045; 71275; 80053; 81001; 83605; 83735; 83880; 84443; 84484; 85025; 85027; 85610; 85730; 86140; 87040; 87086; 87641; 93005; 96361; 96374; 96375; 96376; 99285; A9270; G0378; J0616; J1163; J1650; J1938; J1956; J7030; J7512; Q9967

== ENCOUNTER 2025-02-28 14:11 | Emergency (ER) | payer MEDICARE, SELFPAY ==
[2025-02-28] VITALS (19 sets, daily range): BP systolic 114–131; BP diastolic 46–95; PULSE 92–133; RESP 15–21; TEMP 36.3; O2SAT 93–98
--- NOTE | ~2025-02-28 | XR_ITS ---
EXAMINATION: XR chest 2V 02/28/2025 15:32 INDICATION: Palpitations. TECHNIQUE:Frontal and lateral images of the chest were obtained. COMPARISON: 02/22/2025 FINDINGS: Cervical hardware is noted. Cardia mediastinal silhouette is enlarged, unchanged. No pneumothorax. No free air under the diaphragm. Confluent opacity in the lower third of the left hemithorax. Differential includes a combination of pleural fluid with adjacent atelectasis and/or consolidation. An underlying mass is possible. Recommend follow-up to resolution. Consider a chest CT. Small patchy opacities in the right mid and lower lung. Differential includes metastasis/scarring or infiltrates. IMPRESSION: 1.Confluent opacity in the lower third of the left hemithorax. Differential includes a combination of pleural fluid with adjacent atelectasis and/or consolidation. An underlying mass is possible. Recommend follow-up to resolution. Consider a chest CT. 2.Small patchy opacities in the right mid and lower lung. Differential includes metastasis/scarring or infiltrates. Reviewed, dictated and finalized at location A. IMPRESSION: 1.Confluent opacity in the lower third of the left hemithorax. Differential inc ludes a combination of pleural fluid with adjacent atelectasis and/or consolida tion. An underlying mass is possible. Recommend follow-up to resolution. Consid er a chest CT. 2.Small patchy opacities in the right mid and lower lung. Differential includes metastasis/scarring or infiltrates.
--- NOTE | 2025-02-28 14:13 | ECG_ITS ---
Test Date: 2025-02-28 14:23:30 Measurements Intervals [place] Rate: 133 P: 0 MN: 0 QRS: -31 QRSD: 74 T: 48 QT: 288 QTc: 429 Interpretive Statements ATRIAL FIBRILLATION WITH RAPID VENTRICULAR RESPONSE WITH VENTRICULAR COUPLET AND VENTRICULAR PREMATURE COMPLEXES LEFT AXIS DEVIATION POSSIBLE ANTERIOR MYOCARDIAL INFARCTION , PROBABLY OLD ABNORMAL ECG Compared to ECG 02/24/2025 00:45:32 SINUS RHYTHM NO LONGER PRESENT Ventricular premature complex(es) now present Electronically Signed On 02-28-2025 15:02:30 CDT by Fransico Ortega D.O.
--- OUTSIDE RECORDS SUMMARY | 2025-02-28 14:40 | XMS_ITS | Encounter Summary ---
Author Organization [facility] Health Address [address] [place] [address] Care Team Providers Care Aircraft Pneudraulic Systems Mechanic Name Role Phone Unavailable Primary Care Provider Unavailabl e Prior Encounters Date Type Department Care Team Description 07/31/2019 Converted CPS Chart Documents [facility] [address] [place] [address] <No scans attached> 07/31/2019 Converted 13x Documents [facility] [address] [place] [address] <No scans attached> Plan of [...] 2 ENDODONTIC THERAPY, MOLAR TOOTH (EXCLUDING FINAL JEWISH) Routine 07/25/2012 12:00 AM PST 30 PONTIC [...] 3 ENDODONTIC THERAPY, MOLAR TOOTH (EXCLUDING FINAL JEWISH) Routine 07/25/2012 12:00 AM PST 31 ENDODONTIC THERAPY, MOLAR TOOTH (EXCLUDING FINAL JEWISH) Routine 07/25/2012 12:00 AM PST 4 CROWN [...]
--- OUTSIDE RECORDS SUMMARY | 2025-02-28 14:40 | XMS_ITS | Patient Health Record ---
Author Organization [facility] Address [address] [place] [address] Care Team Providers Care Hadoop Developer Name Role Phone Diego Mina MD Primary Care Provider Unavail able Beatriz Ghotra Unavailable [phone] Unavailable [phone] Parminder Gerard Unavailable [phone] Allergies Allergen (clinical drug ingredient) Drug/Non Drug [...] Oxazepam (BZO) n 0 - 300 ng/ml 7-boyjzevycj-4,0-tzsqzsde-2,3-diphenylpyrrolidine (VIGNESH P) n 0 - 300 ng/ml Methamphetamine (MET) n 0 - 1000 ng/ml Methylenedioxymethamphetamine (MDMA) n 0 - 500 ng/ml Morphine (MOP 300/HXO4085) n 0 - 300 ng/ml Methadone (MTD) n 0 - 300 ng/ml Phencyclidine (PCP) n 0 - 25 ng/ml Nortriptyline (TCA) n 0 - 1000 ng/ml Oxycodone feint 0 - 300 ng/ml x n 0 - 300 ng/ml Reason For Referral No Information Medications Medication SIG (Take, Route, Frequency, Duration) Notes Start Date End Date Status Triamcinolone Acetonide 0.1 % Ointment External; Duration: 25 Days Active HYDROcodone-Acetamino phen 5-325 MG Tablet Oral; Duration: 14 Days Active metFORMIN HCl 500 MG Tablet Oral 09/09/2023 Not-Taking Azelastine HCl 137 MCG/SPRAY Solution Nasal 09/09/2023 Not-Takin g Metoprolol Tartrate 25 MG Tablet Oral 09/09/2023 Active Ergocalciferol 1.25 MG (82843 UT) Capsule 1 capsule Oral weekly 09/09/2023 Active Gabapentin 800 MG Tablet 1 tablet Oral 3 times a day 09/09/2023 Active risperiDONE 1 MG Tablet 1 tablet Oral three times a day; Duration: 30 days Active Alendronate Sodium 70 MG Tablet Oral 09/09/2023 Active DULoxetine HCl 60 MG Capsule Delayed Release Particles 1 capsule Oral twice a day; Duration: 30 days Active Naloxone HCl 4 MG/0.1ML Liquid as directed Nasal daily As needed 09/09/2023 Active Simvastatin 20 MG Tablet TAKE 1 TABLET BY MOUTH DAILY Oral; Duration: 90 Days Active risperiDONE 1 MG Tablet 1 tablet Oral three times a day; Duration: 30 days Active Nitrofurantoin Monohyd Macro 100 MG Capsule Oral 09/09/2023 Not-Taking DULoxetine HCl 60 MG Capsule Delayed Release Particles 1 capsule Oral twice a day; Duration: 30 days Active Furosemide 40 MG Tablet 1 tablet Oral daily As needed 09/09/2023 Not-Taking Fluticasone Propionate Diskus 50 MCG/ACT Aerosol Powder Breath Activated Inhalation *Reorder from [facility] for eRx and Interaction Alerts* 09/09/2023 Not-Taking Social History Tobacco Use: Social History Observation Description Date Details (start date - stop date) Current Smoker NA - NA Sex Assigned At : Social History Observation Description Sex Assigned At Female Social History Miscellaneous: Social Info Question Answer Notes Safety issues: Do you feel safe at home? Yes Are there any firearms in the house? No Household: Social Info Question Answer Notes Household Marital status: Number of adults in household: 1 Level of education: finished high school 2 years of college Drug/Alcohol: Social Info Question Answer Notes AUDIT-C (Standard) Did you have a drink containing alcohol in the past year? No Points 0 Interpretation Negative Tobacco Use: Social Info Question Answer Notes Tobacco Control (Standard) Tobacco use: Current smoker How often do you smoke cigarettes? Every day How many cigarettes a day do you smoke? 6-10 Are you interested in quitting? Thinking about quitting Additional Details Category Social Info Options Details Miscellaneous: Occupation: retired Migrated Social History Migrated Social History Alcohol Intake: None 11/13/2022,Tobacco Years: Current every day smoker 11/13/2022,Smoking Status: 5 05/13/2023 Drug/Alcohol: Do you smoke marijuana? Den ies Do you drink alcohol? No Problems Problem Type SNOMED Code ICD Code Onset Dates Problem Status W/U Status Risk Notes Problem Major depressive disorder, recurrent, in partial remission (F33.41) Active confirmed Problem Recurrent major depression in full remission (95436746) Major depressive disorder, recurrent, in full remission (F33.42) Active confirmed Problem Posttraumatic stress disorder (88226408) Post-traumatic stress disorder, chronic (F43.12) Active confirmed Vital Signs Heart Rate 85 /min 12/18/2024 Height-cm 154.94 cm 12/18/2024 Blood pressure diastolic 78 mm Hg 12/18/2024 Weight-kg 78.02 kg 12/18/2024 Height 61.00 in 12/18/2024 Blood pressure systolic 125 mm Hg 12/18/2024 Weight 172 lbs 12/18/2024 BMI 32.5 kg/m2 12/18/2024 Encounters Encounter Location Date Provider Diagnosis [email or web address] [address] [address] 07/07/2024 Thena Jad Hypertension, unspecified type 401.9 ; Major depressive disorder, recurrent, in full remission F33.42 ; Post-traumatic stress disorder, chronic F43.12 ; 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 and Benign essential HTN I10 [email or web address] [address] [address] 09/07/2024 Thena Jad Major depressive disorder, recurrent, in full remission F33.42 ; Post-traumatic stress disorder, chronic F43.12 and Benign essential HTN I10 [email or web address] [address] [place] [address] 12/18/2024 Parminder Clubb Negative depression screening Z13.31 ; Major depressive disorder, recurrent, in full remission F33.42 ; Nicotine use Z72.0 and Post-traumatic stress disorder, chronic F43.12 [facility] [address] [place] [address] 04/19/[address] Major depressive disorder, recurrent, in full remission F33.42 [facility] [address] [place] [address] 04/19/2024 Thena Jad Major depressive disorder, recurrent, [...] approximately 5 years, first prescribed by Dr. Dipak garcia by Dr. Street. Plan: - Continue risperidone [...] Details Provider Name:Beatriz aguiar, 03/20/2025 10:15:00 AM, [address], [place], [address], Insurance Providers Payer Name Payer Address Payer Phone Subscriber Number Group Number Insured Name Patient Relationship to Insured Coverage Start Date Coverage End Date [facility] Medicare Replacement/ Advantage - [employer]mo [address] [address] [place] [address] [id number] BHANU COULTER Self - patient is the insured Medical (General) History Medical History History ICD Code Problems: Bereavement Chronic post-traumatic stress disorder Diabetic peripheral neuropathy Essential hypertension Recurrent major depression in full remis chang pleural effusions- bilateral hyperlipidemia neuropathy Arthritis chronic back pain Surgical History Surgery Date(Month/Year) Partial repair of rotator cuff ([id number]) Cervical arthrodesis (13568243) Carpal tunnel surgery (37003) 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
--- OUTSIDE RECORDS SUMMARY | 2025-02-28 14:40 | XMS_ITS | Clinical Summary ---
Author Organization [facility] Health Address [address] [place] [address] Care Team Providers Care Central Stores Attendant Name Role Phone Unavailable Primary Care [...]
[2025-02-28 15:29] LABS: Hematocrit 36.1 % (37.0-47.0); Hemoglobin 11.7 g/dL (12.0-15.0); Mean Corpuscular HGB Conc 32.4 g/dl (32-36); Mean Corpuscular Hemoglobin 30.8 pg (26-34); Mean Corpuscular Volume 95.0 fl (80-100); Platelet Count Result 215 k/mm3 (150-375); Red Blood Count 3.80 M/mm3 (4.2-5.4); White Blood Count 8.4 K/mm3 (4.5-10.0)
[2025-02-28 15:38] LABS: INR 1.1; Prothrombin Time 14.4 Seconds (11.1-14.7)
[2025-02-28 15:39] LABS: Partial Thromboplastin Time 31.4 Seconds (22.3-36.8)
[2025-02-28 15:43] LABS: Alanine Aminotransferase 15 U/L (6-35); Albumin Level 3.3 g/dL (3.5-5.1); Alkaline Phosphatase 51 U/L (38-126); Anion Gap 3 mmol/L (4-12); Aspartate Amino Transferase 18 U/L (14-36); Bilirubin,Total 0.2 mg/dL (0.2-1.3); Blood Urea Nitrogen 20 mg/dL (7-17); Calcium 10.0 mg/dL (8.4-10.2); Carbon Dioxide 27 mmol/L (22-30); Chloride 109 mmol/L (98-107); Estimated CRCL calculation 44 ml/min; Estimated Glomerular Filt Rate 54; Glucose 100 mg/dL (65-110); Potassium 4.1 mmol/L (3.4-5.0); Sodium 139 mmol/L (137-145); Total Protein 5.6 g/dL (6.3-8.2)
[2025-02-28 15:54] LABS: NT Pro B Type Natriuretic Pept 2170 pg/mL (19.9-100); Troponin I 0.014 ng/mL (0.000-0.034)
--- OUTSIDE RECORDS SUMMARY | 2025-02-28 16:03 | XMS_ITS | Encounter Summary ---
Author Organization [facility] Health Address [address] [place] [address] Care Team Providers Care Test Examiner Name Role Phone Unavailable Primary Care Provider Unavailabl e Prior Encounters Date Type Department Care Team Description 07/31/2019 Converted CPS Chart Documents [facility] [address] [place] [address] <No scans attached> 07/31/2019 Converted 13x Documents [facility] [address] [place] [address] <No scans attached> Plan of [...] 2 ENDODONTIC THERAPY, MOLAR TOOTH (EXCLUDING FINAL JAINISM) Routine 07/25/2012 12:00 AM PST 30 PONTIC [...] 3 ENDODONTIC THERAPY, MOLAR TOOTH (EXCLUDING FINAL JAINISM) Routine 07/25/2012 12:00 AM PST 31 ENDODONTIC THERAPY, MOLAR TOOTH (EXCLUDING FINAL JAINISM) Routine 07/25/2012 12:00 AM PST 4 CROWN [...]
--- OUTSIDE RECORDS SUMMARY | 2025-02-28 16:03 | XMS_ITS | Clinical Summary ---
Author Organization [facility] Health Address [address] [place] [address] Care Team Providers Care Enrober Name Role Phone Unavailable Primary Care Provider [...]
[2025-02-28 16:13] LABS: Eosinophils Absolute Manual 0.16 K/mm3 (0.02-0.50); Eosinophils Percent Manual 2 % (0-4); Lymphocytes Absolute Manual 2.18 K/mm3 (1.1-4.5); Lymphocytes Percent Manual 26.0 % (18-44); Monocytes Absolute Manual 0.42 K/mm3 (0.1-0.90); Monocytes Percent Manual 5 % (3-9); Neutrophils Percent Manual 67 % (46-73); Total Cells Counted 100
[2025-02-28 16:14] LABS: Schistocytes None Seen
--- NOTE | 2025-02-28 16:19 | PC.NURSE ---
JOHN Davidson states to hold metoprolol until she is able to talk to pt machine captain.
[2025-02-28 16:20] LABS: Band Neutrophils Percent 0 % (0-6); Neutrophils Absolute Manual 5.62 K/mm3 (1.3-6.7)
--- NOTE | 2025-02-28 16:29 | ED_ITS ---
HPI - Arrhythmia/Palpitations General Chief Complaint: Arrhythmia/Palpitations Stated Complaint: Low BP, High HR-Hx Afib-sent by kraft mill operator Time Seen by Provider: 02/28/25 15:40 Source: patient Mode of arrival: ambulatory Limitations: no limitations History of Present Illness HPI narrative: This is a 74-year-old female that presents to the emergency department for medication adverse reaction. Reports she had just taken her metoprolol earlier this morning. Her dose was just increased after a hospital stay for atrial fibrillation with RVR. After taking her dose this morning. She started to feel very lightheaded. She took her blood pressure and it was low. She continued to feel her heart racing, generally unwell. Called her kraft mill operator, was prompted to be seen in the ER. Related Data Home Medications ?Medication ?Instructions ?Recorded ?Confirmed ?Last Taken ?Type duloxetine 60 mg capsule,delayed 60 mg PO BID 12/26/19 02/22/25 10/27/22 History release (Cymbalta) ibuprofen 800 mg tablet See Rx Instructions .Route 0 10/22/22 02/22/25 10/26/22 History .COMPLEX PRN Pain risperidone 1 mg tablet 1 mg PO TID 10/22/22 5 02/22/25 History ipratropium 0.5 mg-albuterol 3 mg 3 ml inhalation Q6H PRN shortness 01/24/25 02/22/25 Unknown History (2.5 mg base)/3 mL nebulization of breath or wheezing soln hydrocodone 5 mg-acetaminophen 325 1 tablet PO TID PRN pain (scale 02/22/25 02/22/25 02/22/25 History mg tablet score 4-6) rivaroxaban 20 mg PO DAILY 02/22/2502/0902/21/25 18:00 History Allergies Allergy/AdvReac Type Severity Reaction Status Date / Time erythromycin base Allergy Hives Verified 02/28/25 14:12 Penicillins Allergy Hives Verified 02/28/25 14:12 Review of Systems 2 Review of Systems: All systems reviewed & are unremarkable except as noted in HPI and below PMFSH Past Medical History Medical History Type 2 diabetes mellitus Diet-controlled, recent A1c was 6.0. Atrial fibrillation Frequent urinary tract infections Mild pulmonary hypertension Estimated PASP of 46 mmHg on echo in 10/2022. Diastolic dysfunction Echocardiogram on 10/23/2022: normal LV size and function, estimated EF of 55 to 60%, diastolic dysfunction, moderate left atrial enlargement, and mild pulmonary hypertension. Chronic pain syndrome Vitamin D deficiency Normocytic anemia Nicotine use Depression with anxiety Kidney stones Shingles Arthritis Gastroesophageal reflux disease Hypertension Hyperlipidemia Chronic obstructive pulmonary disease Sinus congestion Surgical History Surgical History History of fusion of cervical spine C4 through C6. History of lithotripsy History of hernia repair History of appendectomy Family History Family History Sibling Family history of blood dyscrasia Family history of malignant neoplasm Family history of seizure disorder Mother Family history of malignant neoplasm, Onset Age: 85 Family history of lymphoma, Onset Age: 85 Family history of atrial fibrillation, Onset Age: 85 Social History Social History Social History: Surrogate medical decision maker: Usha Ashley, granddaughter. Code status: Full code. Smoking packs per day: 0.5 Smoking cigarettes per day: 10.0 Years smoked: 7 Smoking pack-years: 3.50 Smoking status: Current every day smoker Tobacco type: cigarettes Second hand tobacco smoke exposure: Yes Alcohol intake: never Substance use: never Substance use type: does not use Do You Feel Safe in your Home?: Yes Lack of Transportation: No Lack of Food: Never True Current Housing: I Have Housing Concerned About Future Housing: No Difficulty Paying Gas/Electric Bills: No Difficulty Paying for Meds: No Currently Unemployed: No Education: Associate Degree Difficulty w/ Childcare or Family Care: No Living arrangements: alone Spiritual care concerns: No Agree to blood products: Yes Exam 2 Narrative: GENERAL: Well-appearing, well-nourished, and in no acute distress. HEAD: Normocephalic, atraumatic. EYES: EOMI. CHEST: Clear to auscultation. No respiratory distress. No wheezes rales or rhonchi HEART: Tachycardic, irregularly irregular. No murmur heard. Normal peripheral pulses. EXTREMITIES: Normal range of motion. No edema. SKIN: Warm, dry, no rash. NEURO: No focal deficits. Alert and oriented x3. PSYCH: Normal mood and affect Course Consultations Consultation #1: Spoke with Dr. Sahni about patient, will trial metoprolol 25, 3 times daily and see if she tolerates this dose better Date: 02/28/25 Vital Signs Vital signs: Vital Signs Temperature 97.4 F L 02/28/25 14:20 Pulse Rate 133 H 02/28/25 14:20 Respiratory Rate 16 02/28/25 14:20 Blood Pressure 129/46 L 02/28/25 14:20 Pulse Oximetry 97 02/28/25 14:20 Oxygen Delivery Room Air 02/28/25 14:20 Temperature 97.4 F L 02/28/25 14:20 Pulse Rate 108 H 02/28/25 17:17 Respiratory Rate 18 02/28/25 17:17 Blood Pressure 121/72 02/28/25 17:17 Pulse Oximetry 95 02/28/25 17:17 Oxygen Delivery Room Air 02/28/25 14:20 MDM - Arrhythmia/Palpitations MDM Narrative Medical decision making narrative: Patient presents to the ER for low blood pressure after taking her metoprolol dose this morning. Was recently admitted for afib with RVR. Her metoprolol dose was increased. Blood pressure stable in the ER. Heart rate anywhere from 80s- 120. CBC and metabolic panel appears stable. Chest x-ray showing likely a small pleural effusion on the left. Baseline troponin is not elevated. Spoke with Dr. Sahni about patient, will trial metoprolol 25, 3 times daily and see if she tolerates this dose better. Instructed to have close follow up with cardiology Differential Diagnosis Differential diagnosis: Likely palpitations, anxiety, sinus tachycardia, artial fibrillation and artial flutter Lab Data Attestation: I reviewed the patient's lab results. 02/28/25 15:23 02/28/25 15:23 Labs: Lab Results 02/28/25 Range/Units 15:23 WBC 8.4 (4.5-10.0) K/mm3 RBC 3.80 L (4.2-5.4) M/mm3 Hgb 11.7 L (12.0-15.0) g/dL Hct 36.1 L (37.0-47.0) % MCV 95.0 (80-100) fl MCH 30.8 (26-34) pg MCHC 32.4 (32-36) g/dl RDW 14.0 (11.5-14.5) % Plt Count 215 (150-375) k/mm3 MPV 11.4 H (7.4-10.4) fl Immature Gran % (Auto) Not Reportable Neut % (Auto) Not Reportable Lymph % (Auto) Not Reportable Wright % (Auto) Not Reportable Eos % (Auto) Not Reportable Baso % (Auto) Not Reportable Lymph # (Auto) Not Reportable Wright # (Auto) Not Reportable Eos # (Auto) Not Reportable Baso # (Auto) Not Reportable Abs Immat Gran (auto) Not Reportable Absolute Neuts (auto) Not Reportable Absolute Nucleated RBC Not Reportable Total Counted 100 Neutrophils % (Manual) 67 (46-73) % Band Neutrophils % 0 (0-6) % Lymphocytes % (Manual) 26.0 (18-44) % Monocytes % (Manual) 5 (3-9) % Eosinophils % (Manual) 2 (0-4) % Nucleated RBC % Not Reportable Abs Neuts (Manual) 5.62 (1.3-6.7) K/mm3 Abs Lymphs (Manual) 2.18 (1.1-4.5) K/mm3 Abs Monocytes (Manual) 0.42 (0.1-0.90) K/mm3 Absolute Eos (Manual) 0.16 (0.02-0.50) K/mm3 Atypical Lymphocytes Present Platelet Estimate Adequate (Adequate) Schistocytes None seen PT 14.4 (11.1-14.7) Seconds INR 1.1 APTT 31.4 (22.3-36.8) Seconds Sodium 139 (137-145) mmol/L Potassium 4.1 (3.4-5.0) mmol/L Chloride 109 H (98-107) mmol/L Carbon Dioxide 27 (22-30) mmol/L Anion Gap 3 L (4-12) mmol/L BUN 20 H (7-17) mg/dL Creatinine 1.01 H (0.7-1.0) mg/dL Estim Creat Clear Calc 44 ml/min Estimated GFR 54 L (59 - ) Glucose 100 (65-110) mg/dL Calcium 10.0 (8.4-10.2) mg/dL Total Bilirubin 0.2 (0.2-1.3) mg/dL AST 18 (14-36) U/L ALT 15 (6-35) U/L Alkaline Phosphatase 51 (38-126) U/L Troponin I 0.014 (0.000-0.034) ng/mL NT-Pro-B Natriuret Pep 2170 H (19.9-100) pg/mL Total Protein 5.6 L (6.3-8.2) g/dL Albumin 3.3 L (3.5-5.1) g/dL Imaging Data Radiologist's impression: ITS Impressions Chest X-Ray 02/28/25 15:35 IMPRESSION: 1.Confluent opacity in the lower third of the left hemithorax. Differential includes a combination of pleural fluid with adjacent atelectasis and/or consolidation. An underlying mass is possible. Recommend follow-up to resolution. Consider a chest CT. 2.Small patchy opacities in the right mid and lower lung. Differential includes metastasis/scarring or infiltrates. Critical Care Time Critical Care Time Critical Care Time: No Discharge Plan Discharge Clinical Impression: Atrial fibrillation with RVR Patient Disposition: Home Condition: Guarded Prognosis Instructions: A-fib (Atrial Fibrillation) (ED) Additional Instructions: Return to the emergency department if you experience fever, chest pain, shortness of breath, weakness, numbness, you pass out, or any other symptoms that are concerning to you. The kraft mill operator recommends taking 25mg of Metoprolol tartrate 3 times daily to see if you tolerate this dose better Follow up with your kraft mill operator for further management Patient Language: Nepali Prescriptions: No Action duloxetine [Cymbalta] 60 mg capsule,delayed release(DR/EC) 60 mg PO BID Rx Instructions: TAKE 1 CAPSULE PO BID; cholecalciferol (vitamin D3) 50 mcg (2,000 unit) capsule See Rx Instructions .ROUTE .COMPLEX Qty: 90 3RF Dose Instruction: TAKE 1 CAPSULE BY MOUTH DAILY Rx Instructions: TAKE 1 CAPSULE BY MOUTH DAILY albuterol sulfate [Ventolin HFA] 90 mcg/actuation HFA aerosol inhaler 1 - 2 inh inhalation Q4-6H PRN (Reason: shortness of breath or wheezing) Qty: 8.5 5RF risperidone 1 mg tablet 1 mg PO TID ibuprofen 800 mg tablet See Rx Instructions .ROUTE .COMPLEX PRN (Reason: Pain) Rx Instructions: TAKE 1 TABLET BY MOUTH TWICE DAILY WITH FOOD PRN for back pain hydrocodone-acetaminophen 5-325 mg tablet 1 tablet PO TID PRN (Reason: pain (scale score 4-6)) rivaroxaban [Xarelto] 20 mg PO DAILY benzonatate 100 mg Capsule 100 mg PO TID PRN (Reason: Cough) Qty: 20 0RF polyethylene glycol 3350 [Miralax] 17 gram Powder In Packet 17 g PO QAM PRN (Reason: Constipation) Qty: 14 0RF metoprolol tartrate 50 mg Tablet 50 mg PO Q12HR Qty: 60 0RF levofloxacin 750 mg tablet 750 mg PO DAILY Qty: 3 0RF gabapentin 800 mg tablet See Rx Instructions .ROUTE .COMPLEX Qty: 360 2RF Dose Instruction: TAKE 1 TABLET BY MOUTH FOUR TIMES DAILY Rx Instructions: TAKE 1 TABLET BY MOUTH FOUR TIMES DAILY simvastatin 20 mg tablet See Rx Instructions .ROUTE .COMPLEX Qty: 90 2RF Dose Instruction: TAKE 1 TABLET BY MOUTH DAILY Rx Instructions: TAKE 1 TABLET BY MOUTH DAILY ipratropium-albuterol 0.5 mg-3 mg(2.5 mg base)/3 mL solution for nebulization 3 ml inhalation Q6H PRN (Reason: shortness of breath or wheezing) prednisone 10 mg tablet 10 mg PO DIRECTED Qty: 30 0RF Rx Instructions: Take 4 tablets by mouth daily for 3 days, then 3 tablets for 3 days, 2 tablets for 3 days, 1 tablet for 3 days Follow-up/Referrals: Diego Mina MD [Primary Care Provider, Internal Medicine]
== END 2025-02-28 18:28 | disposition home or self-care (01) ==
PROVIDERS: Family Medicine; Emergency Provider Physician Assistant; PCP Emergency Medicine
DX: I48.91 Unspecified atrial fibrillation (principal); E11.9 Type 2 diabetes mellitus without complications; E55.9 Vitamin D deficiency, unspecified; F41.8 Other specified anxiety disorders; K21.9 Gastro-esophageal reflux disease without esophagitis; I10 Essential (primary) hypertension; J44.9 Chronic obstructive pulmonary disease, unspecified; E78.5 Hyperlipidemia, unspecified; F17.210 Nicotine dependence, cigarettes, uncomplicated
CPT/HCPCS: 36415; 71046; 80053; 83880; 84484; 85025; 85610; 85730; 93005; 99284

== ENCOUNTER 2025-03-23 12:29 | Outpatient (CLI) | payer MEDICARE, SELFPAY ==
--- NOTE | ~2025-03-23 | MR_ITS ---
EXAMINATION: MR abdomen wo/w con DATE: 03/23/2025 13:36 INDICATION: Liver disease, unspecified. TECHNIQUE: Magnetic resonance imaging (MRI) of the abdomen was performed without and with 15 mL MultiHance intravenous contrast. COMPARISON: Abdomen MRI 01/18/2020 FINDINGS: Cardiomegaly is noted. No pericardial effusion. There is trace pleural effusions. There is diffuse hepatic steatosis. There are cysts in the liver measuring up to 11 mm. The gallbladder is absent. The common duct measures 12 mm in diameter, likely not clinically significant given the normal liver function tests on 03/27/2025. The spleen, pancreas, and right adrenal gland are normal. There is chronic thickening of left adrenal gland, likely benign. There are cysts in the kidneys measuring up to 3.8 cm on the right. There are no dilated loops of bowel. There are no pathologically enlarged lymph nodes. There is no free intraperitoneal fluid. IMPRESSION: 1. Diffuse hepatic steatosis. Reviewed, dictated and finalized at location E.
== END 2025-03-23 12:30 | disposition home or self-care (01) ==
LOC: MICIMG 12:30
PROVIDERS: PCP Emergency Medicine; Visit Provider Emergency Medicine
DX: K76.0 Fatty (change of) liver, not elsewhere classified (principal)
CPT/HCPCS: 74183; A9577

== ENCOUNTER 2025-03-27 08:54 | Outpatient (CLI) | payer MEDICARE, SELFPAY ==
--- OUTSIDE RECORDS SUMMARY | 2025-03-20 05:15 | XMS_ITS ---
Author Organization [facility] As [employer] Address [address] [place] [address] Care Team Providers Care Biologics Specialist Name Role Phone Diego Mina MD Primary Care Provider Unavail able Albert Ghotraistin Unavailable [phone] Allergies Allergen (clinical drug ingredient) Drug/Non Drug Allergy documented on EMR Reaction Allergy Type Onset Date Status morphine Morphine Unknown Drug Allergy 09/09/2023 Active Penicillin Unknown Drug Allergy Active vancomycin Vancomycin Unknown Drug Allergy 09/09/2023 Acti ve REASON FOR VISIT Dr. Street Pt, juany Zurita 12/18 Medications Medication SIG (Take, Route, Frequency, Duration) Notes Start Date End Date Status DULoxetine HCl 60 MG Capsule Delayed Release Particles 1 capsule Oral twice a day; Duration: 30 days 03/20/2025 Active Nitrofurantoin Monohyd Macro 100 MG Capsule Oral 09/09/2023 Not-Taking risperiDONE 1 MG Tablet 1 tablet Oral twice a day; Duration: 30 days 03/20/2025 Active Fluticasone Propionate Diskus 50 MCG/ACT Aerosol Powder Breath Activated Inhalation *Reorder from [employer] for eRx and Interaction Alerts* 09/09/2023 Not-Taking Furosemide 40 MG Tablet 1 tablet Oral daily As needed 09/09/2023 Not-Taking Azelastine HCl 137 MCG/SPRAY Solution Nasal 09/09/2023 Not-Takin g metFORMIN HCl 500 MG Tablet Oral 09/09/2023 Not-Taking Metoprolol Tartrate 25 MG Tablet Oral 09/09/2023 Active Xarelto 20 MG Tablet TAKE 1 TABLET BY MOUTH EVERY DAY Oral; Duration: 90 Days Active Ergocalciferol 1.25 MG (37611 UT) Capsule 1 capsule Oral weekly 09/09/2023 Active Gabapentin 800 MG Tablet 1 tablet Oral 3 times a day 09/09/2023 Active Alendronate Sodium 70 MG Tablet Oral 09/09/2023 Active Simvastatin 20 MG Tablet TAKE 1 TABLET BY MOUTH DAILY Oral; Duration: 90 Days Active Naloxone HCl 4 MG/0.1ML Liquid as directed Nasal daily As needed 09/09/2023 Active risperiDONE 1 MG Tablet 1 tablet Oral three times a day; Duration: 30 days Active HYDROcodone-Acetamino phen 5-325 MG Tablet Oral; Duration: 14 Days Active Triamcinolone Acetonide 0.1 % Ointment External; Duration: 25 Days Active DULoxetine HCl 60 MG Capsule Delayed Release Particles 1 capsule Oral twice a day; Duration: 30 days Active Social History Tobacco Use: Social History Observation [...] Den ies Do you drink alcohol? No Vital Signs Blood pressure systolic 138 mm Hg 03/20/20 25 Blood pressure diastolic 78 mm Hg 025 Heart Rate 80 /min 03/20/2025 Height 61.00 in 03/20/2025 Weight 175 lbs 03/20/2025 BMI 33.06 kg/m2 03/20/2025 Height-cm 154.94 cm 03/20/2025 Weight-kg 79.38 kg 03/20/2025 Encounters Encounter Location Date Provider Diagnosis [facility] [address] [place] [address] 03/20/2025 Beatriz Paradise Major depressive disorder, recurrent, in full remission F33.42 ; Negative depression screening Z13.31 ; Nicotine use Z72.0 and Post-traumatic stress disorder, chronic F43.12 Assessments Encounter Date Diagnosis (ICD Code) Assessment Notes Treatment Notes Treatment Clinical Notes Section Notes 03/20/2025 Major depressive disorder, recurrent, in full remission (ICD-10 - F33.42) 03/20/2025 Negative depression screening (ICD-10 - Z13.31) 03/20/2025 Nicotine use (ICD-10 - Z72.0) 03/20/2025 Post-traumatic stress disorder, chronic (ICD-10 - F43.12) Plan Of Treatment Medication Medication Name Sig Start Date Stop Date Notes DULoxetine HCl 60 MG Capsule Delayed Release Particles 1 capsule Oral twice a day; Duration: 30 days 03/20/2025 risperiDONE 1 MG Tablet 1 tablet Oral tw ice a day; Duration: 30 days 03/20/2025 Next Appt Details Provider Name:Beatriz aguiar, 06/12/2025 09:30:00 AM, [address], [facility] [address], [place], [address], History and Physical Notes * HPI (History of Present Illness) Category Sub-Category Detail Notes Category Not es History of Presenting Problem advance care planning discuss Depression screening done Depression screening PHQ-9 Little inte rest or pleasure in doing things: Several days Feeling down, depressed, or hopeless: No t at all Trouble falling or staying asleep, or sl eeping too much: Several days Feeling tired or having little energy: S everal days Poor appetite or overeating: Several day s [...] some way: Not at all Total Score: 4 Interpretation: Minimal Depression Intervention Depression Screening Findings: N egative Follow-Up for Depression: Psychiatric fo llow-up Suicide Risk Assessment Performed: --sundar e Functional Status Functional Status Assessment D ate of last completed Functional Status Assessment:: 03/20/2025 Fall Risk Assessment:: One fall with inj ury in the past year Depression Screening FADUMO-7 (2018 Edition) Feelin g nervous, anxious, or on edge: Not at all Not being able to stop or control worryi ng: Not at all Worrying too much about different things : More than hafl the days Trouble relaxing: Several days Being so restless that it is hard to sit still: Several days Becoming easily annoyed or irritable: No t at all Feeling afraid as if something awful jamal ht happen: Not at all Total FADUMO-7 Score: 4 Interpretation of Total: (0 to 4) No Anx iety Progress Notes * JOEL COULTEROB:1950 (74 yo F)Acc No.[id number]:03/20/[address] [facility] Patient: BHANU WAN Provider: Daniel Ghotra :1950 A ge:74 Y S ex:Female Date:03/20/2025 Address:[address] [place], [place] [address] Pcp:Diego Mina MD Subjective: * Chief Complaints: * [address] Pt, juany Zurita 12/18 * HPI: F unctional Status: Functional Status Assessment D ate of last completed Functional Status Assessment: 0 03/20/2025 F all Risk Assessment: O ne fall with injury in the past year H istory of Presenting Problem: advance care planning discussDepression screening done. D epression Screening: FADUMO-7 (2018 Edition) F eeling nervous, anxious, or on edge N ot at all N ot being able to stop or control worrying?Not at all W orrying too much about different things M ore than hafl the days T rouble relaxing S everal days B eing so restless that it is hard to sit still S everal days B ecoming easily annoyed or irritable N ot at all F eeling afraid as if something awful might happen N ot at all T otal FADUMO-7 Score 4 I nterpretation of Total ( 0 to 4) No Anxiety D epression screening: PHQ-9 L ittle interest or pleasure in doing things?Several days F eeling down, depressed, or hopeless N ot at all T rouble falling or staying asleep, or sleeping too much S everal days F eeling tired or having little energy S everal days P oor appetite or overeating S everal F eeling bad about yourself or that you are a failure, or have let yourself or your family down N ot at all T rouble concentrating on things, such as reading the newspaper or watching television N ot at all M oving or speaking so slowly that other people could have noticed; or the opposite, being so fidgety or restless that you have been moving around a lot more than usual N ot at all T houghts that you would be better off or of hurting yourself in some way N ot at all T otal Score 4 I nterpretation M inimal Depression Intervention D epression Screening Findings N egative F ollow-Up for Depression P sychiatric follow-up S uicide Risk Assessment Performed - -date C ontributing Factors: slums 22 on 12/18/2024. * Medical History: Problems: Bereavement Chronic post-traumatic stress disorder Diabetic peripheral neuropathy Essential hypertension Recurrent major depression in full remission Pleural effusions- bilateral Hyperlipidemia Neuropathy Arthritis Chronic back pain Medical History Verified * Social History: T obacco Use: T obacco Control (Standard) T obacco use: C urrent smoker H ow often do you smoke cigarettes? E very day H ow many cigarettes a day do you smoke? 6 -10 A re you interested in quitting? T hinking about quitting M igrated Social History: M igrated Social History: Alcohol Intake: None 11/13/2022,Tobacco Years: Current every day smoker 11/13/2022,Smoking Status: 5 05/13/2023. D rug/Alcohol: D o you smoke marijuana?: Denies. Do you drink alcohol?: No. AUDIT-C (Standard) D id you have a drink containing alcohol in the past year? N o P oints 0 I nterpretation N egative H ousehold: H ousehold M arital status: w idowed N umber of adults in household: 1 L evel of education: f inished high school 2 years of college M iscellaneous: S afety issues D o you feel safe at home? Y es A re there any firearms in the house? N o Occupation: retired. S ocial History Verified. * Medications: T akingHYDROcodone-Acetaminophen 5-325 MG Tablet Oral Triamcinolone Acetonide 0.1 % Ointment External DULoxetine HCl 60 MG Capsule Delayed Release Particles 1 capsule Oral twice a day risperiDONE 1 MG Tablet 1 tablet Oral three times a day Simvastatin 20 MG Tablet TAKE 1 TABLET BY MOUTH DAILY Oral Naloxone HCl 4 MG/0.1ML Liquid as directed Nasal daily As neededAlendronate Sodium 70 MG Tablet Oral Gabapentin 800 MG Tablet 1 tablet Oral 3 times a day Ergocalciferol 1.25 MG (25491 UT) Capsule 1 capsule Oral weekly Metoprolol Tartrate 25 MG Tablet Oral Xarelto 20 MG Tablet TAKE 1 TABLET BY MOUTH EVERY DAY Oral Taking HYDROcodone-Acetaminophen 5-325 MG Tablet Oral Taking Triamcinolone Acetonide 0.1 % Ointment External Taking DULoxetine HCl 60 MG Capsule Delayed Release Particles 1 capsule Oral twice a day Taking risperiDONE 1 MG Tablet 1 tablet Oral three times a day Taking Simvastatin 20 MG Tablet TAKE 1 TABLET BY MOUTH DAILY Oral Taking Naloxone HCl 4 MG/0.1ML Liquid as directed Nasal daily As neededTaking Alendronate Sodium 70 MG Tablet Oral Taking Gabapentin 800 MG Tablet 1 tablet Oral 3 times a day Taking Ergocalciferol 1.25 MG (73046 UT) Capsule 1 capsule Oral weekly Taking Metoprolol Tartrate 25 MG Tablet Oral Taking Xarelto 20 MG Tablet TAKE 1 TABLET BY MOUTH EVERY DAY Oral Not-TakingAzelastine HCl 137 MCG/SPRAY Solution Nasal metFORMIN HCl 500 MG Tablet Oral Fluticasone Propionate Diskus 50 MCG/ACT Aerosol Powder Breath Activated Inhalation , Notes to Pharmacist: *Reorder from [facility] for eRx and Interaction Alerts*Furosemide 40 MG Tablet 1 tablet Oral daily As neededNitrofurantoin Monohyd Macro 100 MG Capsule Oral Medication List reviewed and reconciled with the patientNot-Taking Azelastine HCl 137 MCG/SPRAY Solution Nasal Not-Taking metFORMIN HCl 500 MG Tablet Oral Not-Taking Fluticasone Propionate Diskus 50 MCG/ACT Aerosol Powder Breath Activated Inhalation , Notes to Pharmacist: *Reorder from [facility] for eRx and Interaction Alerts*Not-Taking Furosemide 40 MG Tablet 1 tablet Oral daily As neededNot-Taking Nitrofurantoin Monohyd Macro 100 MG Capsule Oral Medication List reviewed and reconciled with the patient * Allergies: M orphine: Allergy - Onset Date 09/09/2023Vancomycin: Allergy - Onset Date 09/09/2023enicillinyesAllergies Verified. Objective: * Vitals: B P:138/78mm Hg, HR:80/min, Wt:175lbs, Wt-k.38 kg, Ht: 61.00 in, Ht-cm: 154.94 cm, BMI:33.06Index, Body Surface Area: 1.85. Assessment: * Assessment: 1. M ajor depressive disorder, recurrent, in full remission - F33.42 (Primary) 2 . N egative depression screening - Z13.31 3 . N icotine use - Z72.0 ? 4 . P ost-traumatic stress disorder, chronic - F43.12 Plan: * Treatment: * Procedure Codes: 9 6127 BEHAV ASSMT W/SCORE & DOCD/STAND INSTRUMENT * Preventive Medicine: Counseling: A dvance Care Planning Date of last Advance Care Planning:?03/20/2025 ____ MIPS Type of advance care directives: D o not Intubate, Living Will, Do Not Resuscitate (DNR) Screenings: D epression screening Have you had a recent depression screening? Y es Billing Information: * Procedure Codes: 00146 BEHAV ASSMT W/SCORE & DOCD/STAND INSTRUMENT. * Electronic signature of Parvez Ghotra on 03/27/2025 at 09:56 AM CDT Sign off status: Pending * Provider: Daniel Ghotra Date: 0 03/20/2025 Generated for Harpal zimmer/Lv/Adrian on: 0 03/27/2025 09:56 AM CDT
[2025-03-27 09:38] LABS: Hemoglobin A1C 5.9 % (<5.7)
[2025-03-27 09:55] LABS: Alanine Aminotransferase 12 U/L (6-35); Albumin Level 3.9 g/dL (3.5-5.1); Alkaline Phosphatase 51 U/L (38-126); Anion Gap 6 mmol/L (4-12); Aspartate Amino Transferase 20 U/L (14-36); Bilirubin,Total 0.4 mg/dL (0.2-1.3); Blood Urea Nitrogen 17 mg/dL (7-17); Calcium 9.7 mg/dL (8.4-10.2); Carbon Dioxide 28 mmol/L (22-30); Chloride 105 mmol/L (98-107); Cholesterol 150 mg/dL (0-200); Estimated Glomerular Filt Rate > 60; Glucose 111 mg/dL (65-110); HDL Direct 53 mg/dL; Potassium 4.0 mmol/L (3.4-5.0); Sodium 139 mmol/L (137-145); Total Protein 6.7 g/dL (6.3-8.2); Triglycerides 142 mg/dL (<150)
--- OUTSIDE RECORDS SUMMARY | 2025-03-27 09:57 | XMS_ITS | Clinical Summary ---
Author Organization [facility] Health Address [address] [place] [address] Care Team Providers Care Weight Count Operator Name Role Phone Unavailable Primary Care [...]
--- OUTSIDE RECORDS SUMMARY | 2025-03-27 09:57 | XMS_ITS | Patient Health Record ---
Author Organization [facility] As [employer] Address [address] [place] [address] Care Team Providers Care Monitoring Manager Name Role Phone Diego Mina MD Primary Care Provider Unavail able Beatriz Ghotra Unavailable [phone] Unavailable [phone] Parminder Gerard Unavailable [phone] Allergies Allergen (clinical drug ingredient) Drug/Non Drug [...] Oxazepam (BZO) n 0 - 300 ng/ml 4-fioxqoiawx-8,0-dfrxvhme-8,3-diphenylpyrrolidine (VIGNESH P) n 0 - 300 ng/ml Methamphetamine (MET) n 0 - 1000 ng/ml Methylenedioxymethamphetamine (MDMA) n 0 - 500 ng/ml Morphine (MOP 300/SZQ4372) n 0 - 300 ng/ml Methadone (MTD) n 0 - 300 ng/ml Phencyclidine (PCP) n 0 - 25 ng/ml Nortriptyline (TCA) n 0 - 1000 ng/ml Oxycodone feint 0 - 300 ng/ml x n 0 - 300 ng/ml Reason For Referral No Information Medications Medication SIG (Take, Route, Frequency, Duration) Notes Start Date End Date Status Simvastatin 20 MG Tablet TAKE 1 TABLET BY MOUTH DAILY Oral; Duration: 90 Days Active Nitrofurantoin Monohyd Macro 100 MG Capsule Oral 09/09/2023 Not-Taking Naloxone HCl 4 MG/0.1ML Liquid as directed Nasal daily As needed 09/09/2023 Active risperiDONE 1 MG Tablet 1 tablet Oral twice a day; Duration: 30 days 03/20/2025 Active DULoxetine HCl 60 MG Capsule Delayed Release Particles 1 capsule Oral twice a day; Duration: 30 days Active Fluticasone Propionate Diskus 50 MCG/ACT Aerosol Powder Breath Activated Inhalation *Reorder from [employer] for eRx and Interaction Alerts* 09/09/2023 Not-Taking risperiDONE 1 MG Tablet 1 tablet Oral three times a day; Duration: 30 days Active Furosemide 40 MG Tablet 1 tablet Oral daily As needed 09/09/2023 Not-Taking HYDROcodone-Acetamino phen 5-325 MG Tablet Oral; Duration: 14 Days Active Azelastine HCl 137 MCG/SPRAY Solution Nasal 09/09/2023 Not-Takin g DULoxetine HCl 60 MG Capsule Delayed Release Particles 1 capsule Oral twice a day; Duration: 30 days 03/20/2025 Active Triamcinolone Acetonide 0.1 % Ointment External; Duration: 25 Days Active metFORMIN HCl 500 MG Tablet Oral 09/09/2023 Not-Taking Metoprolol Tartrate 25 MG Tablet Oral 09/09/2023 Active Xarelto 20 MG Tablet TAKE 1 TABLET BY MOUTH EVERY DAY Oral; Duration: 90 Days Active Gabapentin 800 MG Tablet 1 tablet Oral 3 times a day 09/09/2023 Active Ergocalciferol 1.25 MG (67242 UT) Capsule 1 capsule Oral weekly 09/09/2023 Active Alendronate Sodium 70 MG Tablet Oral 09/09/2023 Active Social History Tobacco Use: Social History [...] Notes Problem Recurrent major depression in remission (06433470) Major depressive disorder, recurrent, in partial remission (F33.41) Active confirmed Problem Recurrent major depression in full remission (78492490) Major depressive disorder, recurrent, in full remission (F33.42) Active confirmed Problem Posttraumatic stress disorder (96421518) Post-traumatic stress disorder, chronic (F43.12) Active confirmed Vital Signs Heart Rate 80 /min 03/20/2025 Height-cm 154.94 cm 03/20/2025 Blood pressure diastolic 78 mm Hg 03/20/2025 Weight-kg 79.38 kg 03/20/2025 Height 61.00 in 03/20/2025 Blood pressure systolic 138 mm Hg 03/20/2025 Weight 175 lbs 03/20/2025 BMI 33.06 kg/m2 03/20/2025 Encounters Encounter Location Date Provider Diagnosis [facility] [address] [facility] [address] [place] [address] 03/20/2025 Beatriz Ghotra Major depressive disorder, recurrent, in full remission F33.42 ; Negative depression screening Z13.31 ; Nicotine use Z72.0 and Post-traumatic stress disorder, chronic F43.12 [facility] [address] [place] [address] 07/07/2024 Thena Jad Hypertension, unspecified type 401.9 ; Major depressive disorder, recurrent, in full remission F33.42 ; Post-traumatic stress disorder, chronic F43.12 ; 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 and Benign essential HTN I10 [facility] [address] [facility] [address] [place] [address] 09/07/2024 Thena Jad Major depressive disorder, recurrent, in full remission F33.42 ; Post-traumatic stress disorder, chronic F43.12 and Benign essential HTN I10 [facility] [address] [address] 12/18/2024 Parminder Clubb Negative depression screening Z13.31 ; Major depressive disorder, recurrent, in full remission F33.42 ; Nicotine use Z72.0 and Post-traumatic stress disorder, chronic F43.12 [facility] [address] [address] 04/19/2024 Thena Jad Major depressive disorder, recurrent, in full remission F33.42 [facility] [address] [address] 04/19/2024 Thena Jad Major depressive disorder, recurrent, [...] 12/18/2024 Negative depression screening (ICD-10 - Z13.31) 03/20/2025 Major depressive disorder, recurrent, in full remission (ICD-10 - F33.42) 12/18/2024 Nicotine use (ICD-10 - Z72.0) 07/07/2024 Major depressive disorder, recurrent, in full remission (ICD-10 - F33.42) 03/20/2025 Negative depression screening (ICD-10 - Z13.31) 03/20/2025 Nicotine use (ICD-10 - Z72.0) 07/07/2024 Post-traumatic stress disorder, chronic (ICD-10 - F43.12) 12/18/2024 Post-traumatic stress disorder, chronic (ICD-10 - F43.12) 09/07/2024 Benign essential HTN (ICD-10 - I10) 03/20/2025 Post-traumatic stress disorder, chronic (ICD-10 - [...] Of Treatment Next Appt Details Provider Name:Beatriz Helen aguiar, 06/12/2025 09:30:00 AM, [address] [facility] [address], [facility] [address], [place], [address], Insurance Providers Payer Name Payer Address Payer Phone Subscriber Number Group Number Insured Name Patient Relationship to Insured Coverage Start Date Coverage End Date [employer] Medicare Replacement/ Advantage - Hmo [address] [address] [place] [phone] [id number] BHANU COULTER Self - patient is the insured Medical (General) History Medical History History ICD Code Problems: Bereavement Chronic post-traumatic stress disorder Diabetic peripheral neuropathy Essential hypertension Recurrent major depression in full remis chang pleural effusions- bilateral hyperlipidemia neuropathy Arthritis chronic back pain Surgical History Surgery Date(Month/Year) Partial repair of rotator cuff (45081672 7) Cervical arthrodesis (02391927) Carpal tunnel surgery (77836) 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
--- OUTSIDE RECORDS SUMMARY | 2025-03-27 09:57 | XMS_ITS | Encounter Summary ---
Author Organization [facility] Health Address [address] [place] [address] Care Team Providers Care Drill Press Operator Name Role Phone Unavailable Primary Care Provider Unavailabl e Prior Encounters Date Type Department Care Team Description 07/31/2019 Converted CPS Chart Documents [facility] [address] [place] [address] <No scans attached> 07/31/2019 Converted 13x Documents [facility] [address] [place] [address] <No scans attached> Plan of [...] 2 ENDODONTIC THERAPY, MOLAR TOOTH (EXCLUDING FINAL CONFUCIANISM) Routine 07/25/2012 12:00 AM PST 30 PONTIC [...] 3 ENDODONTIC THERAPY, MOLAR TOOTH (EXCLUDING FINAL CONFUCIANISM) Routine 07/25/2012 12:00 AM PST 31 ENDODONTIC THERAPY, MOLAR TOOTH (EXCLUDING FINAL CONFUCIANISM) Routine 07/25/2012 12:00 AM PST 4 CROWN [...]
== END 2025-03-27 08:55 | disposition home or self-care (01) ==
PROVIDERS: PCP Emergency Medicine; Visit Provider Emergency Medicine
DX: E55.9 Vitamin D deficiency, unspecified (principal); E78.5 Hyperlipidemia, unspecified; E11.9 Type 2 diabetes mellitus without complications
CPT/HCPCS: 36415; 80053; 80061; 82306; 83036

== ENCOUNTER 2025-05-06 09:54 | Outpatient (CLI) | payer MEDICARE, SELFPAY ==
--- NOTE | ~2025-05-06 | CT_ITS ---
EXAMINATION: CT diagnostic chest wo con DATE: 05/06/2025 10:19 INDICATION: J90 - Pleural effusion, not elsewhere classified TECHNIQUE: Computed tomography (CT) of the chest was performed without intravenous contrast. Additional 3D reconstructions utilizing coronal maximum intensity projection (MIP) were performed. Automated exposure control and iterative reconstruction technique were employed. The dose-length product was 29 8.33 mGy-cm. COMPARISON: CT dated 02/22/2025 FINDINGS: Tiny left pleural effusion. Discoid atelectasis in the left upper lobe and lingula along the major fissure. Compressive atelectasis in the anterior basilar left lower lobe along side the enlarged heart discoid and basilar atelectasis in the right lower lobe and atelectasis at the posterior medial aspect of the right middle lobe. No pulmonary edema, pneumonia or right-sided pleural effusion. Atherosclerotic coronary artery calcification is. No pericardial effusion. Thoracic aorta is normal in caliber. No pathologically enlarged thoracic lymphadenopathy. Multiple scattered small bilateral nonobstructing renal stones the largest in the right kidney measuring 4-5 mm. 3.3 cm right renal cyst. There are also several smaller cysts in the liver measuring up to 1.4 cm. 1.5 cm low- attenuation left adrenal adenoma. Mild thoracic dextroscoliosis with moderate to severe spondylosis. T10 hemangioma. C5-C7 anterior spinal fusion with anterior plate and screw fixation.. IMPRESSION: 1. Very small left pleural effusion and scattered atelectasis in the left mid and bilateral lower lung zones. 2. Cardiomegaly. 3. Bilateral nonobstructing nephrolithiasis. Reviewed, dictated and finalized at location A. IMPRESSION: 1. Very small left pleural effusion and scattered atelectasis in the left mid a nd bilateral lower lung zones. 2. Cardiomegaly. 3. Bilateral nonobstructing nephrolithiasis.
--- OUTSIDE RECORDS SUMMARY | 2025-05-06 09:58 | XMS_ITS | Encounter Summary ---
Author Organization [facility] Health Address [address] [place] [address] Care Team Providers Care Cut Off Saw Tender Metal Name Role Phone Unavailable Primary Care Provider Unavailabl e Prior Encounters Date Type Department Care Team Description 07/31/2019 Converted CPS Chart Documents [facility] [address] [place] [address] <No scans attached> 07/31/2019 Converted 13x Documents [facility] [address] [place] [address] <No scans attached> Plan of [...] 2 ENDODONTIC THERAPY, MOLAR TOOTH (EXCLUDING FINAL YAZIDI) Routine 07/25/2012 12:00 AM PST 30 PONTIC [...] 3 ENDODONTIC THERAPY, MOLAR TOOTH (EXCLUDING FINAL YAZIDI) Routine 07/25/2012 12:00 AM PST 31 ENDODONTIC THERAPY, MOLAR TOOTH (EXCLUDING FINAL YAZIDI) Routine 07/25/2012 12:00 AM PST 4 CROWN [...]
--- OUTSIDE RECORDS SUMMARY | 2025-05-06 09:58 | XMS_ITS | Clinical Summary ---
Author Organization [facility] Health Address [address] [place] [address] Care Team Providers Care Head Start Coordinator Name Role Phone Unavailable Primary Care Provider [...]
--- OUTSIDE RECORDS SUMMARY | 2025-05-06 09:58 | XMS_ITS | Patient Health Record ---
Author Organization [facility] As [employer] Address [address] [place] [address] Care Team Providers Care Executive Chairman Of The Board Name Role Phone Diego Mina MD Primary Care Provider Unavail able Azalea Ashley Unavailable [phone] Unavailable [phone] Parminder Gerard Unavailable [phone] Beatriz Ghotra Unavailable [phone] Allergies Allergen (clinical drug ingredient) Drug/Non Drug Allergy documented on EMR Reaction Allergy Type Onset Date Status morphine Morphine Unknown Drug Allergy 09/09/2023 Active Penicillin Unknown Drug Allergy Active vancomycin Vancomycin Unknown Drug Allergy 09/09/2023 Acti ve Results Component Value Reference Range Notes UDT Reviewed date:12/18/2024 09:56:15 AM Interpretation: Performing Lab: Notes/Report: Amphetamine (AMP) n 0 - 1000 ng/ml Buprenorphine (BUP) n 0 - 10 ng/ml Oxazepam (BZO) n 0 - 300 ng/ml Cocaine (DEIRDRE) n 0 - 300 ng/ml Methamphetamine (mAMP) n 0 - 300 ng/ml Methylenedioxymethamphetamine (MDMA) n 0 - 500 ng/ml Morphine (MOP) n 0 - 25 ng/ml Methadone (MTD) n 0 - 300 ng/ml Oxycodone (OXY) feint 0 - 300 ng/ml THC n 0 - 50 ng/ml x n 0 - 1000 ng/ml x n 0 - 1000 ng/ml x n 0 - 300 ng/ml x n 0 - 300 ng/ml x n 0 [...] Aerosol Powder Breath Activated Inhalation *Reorder from Doc[employer]ENDOTRONIX for eRx and Interaction Alerts* 09/09/2023 Not-Taking [...] a day 09/09/2023 Active Ergocalciferol 1.25 MG (74049 UT) Capsule 1 capsule Oral weekly 09/09/2023 [...] Notes Problem Recurrent major depression in remission (84646199) Major depressive disorder, recurrent, in partial remission (F33.41) Active confirmed Problem Recurrent major depression in full remission (41970518) Major depressive disorder, recurrent, in full remission (F33.42) Active confirmed Problem Posttraumatic stress disorder (87624798) Post-traumatic stress disorder, chronic (F43.12) Active confirmed Vital Signs Heart Rate 80 /min 03/20/2025 Height-cm 154.94 cm 03/20/2025 Blood pressure diastolic 78 mm Hg 03/20/2025 Weight-kg 79.38 kg 03/20/2025 Height 61.00 in 03/20/2025 Blood pressure systolic 138 mm Hg 03/20/2025 Weight 175 lbs 03/20/2025 BMI 33.06 kg/m2 03/20/2025 Encounters Encounter Location Date Provider Diagnosis [facility] [address] [address] 07/07/2024 Thena Jad Hypertension, unspecified type 401.9 ; Major depressive disorder, recurrent, in full remission F33.42 ; Post-traumatic stress disorder, chronic F43.12 ; 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 [address] [facility] [address] [facility] [address] [place] [address] 03/20/2025 Beatriz Ghotra Major depressive disorder, recurrent, in full remission F33.42 ; Post-traumatic stress disorder, chronic F43.12 and Nicotine use Z72.0 Assessments Encounter Date Diagnosis (ICD Code) Assessment Notes Treatment Notes Treatment Clinical Notes Section Notes 07/07/2024 Hypertension, unspecified type (ICD9-CM - 401.9) 09/07/2024 Major depressive disorder, recurrent, in full remission (ICD-10 - F33.42) 09/07/2024 Post-traumatic stress disorder, chronic (ICD-10 - F43.12) 12/18/2024 Major depressive disorder, recurrent, in full remission (ICD-10 - F33.42) 12/18/2024 Negative depression screening (ICD-10 - Z13.31) 03/20/2025 Major depressive disorder, recurrent, in full remission (ICD-10 - F33.42) 03/20/2025 Post-traumatic stress disorder, chronic (ICD-10 - F43.12) 12/18/2024 Nicotine use (ICD-10 - Z72.0) 03/20/2025 Nicotine use (ICD-10 - Z72.0) 07/07/2024 Major [...] efforts have been made to correct them. 03/20/2025 Reid Meneses is a female patient with a history of depression and anxiety, recently hospitalized for pneumonia, who has developed atrial fibrillation and is experiencing mood disturbances and chronic pain. Mood DisturbanceAssessme nt: Patient reports her mood has been rather off recently. This mood disturbance appears to be related to recent medical issues, including a 4-day hospitalization for pneumonia and newly diagnosed atrial fibrillation. The patient expresses feeling thrown off by these new health concerns. Current medication regimen includes duloxetine 60mg twice daily and risperidone 1mg three times daily, which she has been on for approximately 10 years. Patient reports the medications seem to work well for her without significant side effects, aside from weight gain.Plan:- Continue duloxetine 60mg PO twice daily- Adjust risperidone to 1mg PO twice daily - Patient agreed to try reducing frequency from three times daily to twice daily- Follow up to assess efficacy of medication adjustment AnxietyAssessment: Patient has a history of anxiety, for which she was originally prescribed risperidone. She reports that the medication works well for managing her anxiety symptoms. No acute anxiety symptoms were reported during this visit.Plan:- Continue risperidone for anxiety management, adjusting to twice daily dosing as noted above- Monitor for any changes in anxiety symptoms with medication adjustment Chronic PainAssessment: Patient reports experiencing significant pain in multiple areas including arms, hands, hips, and back. She attributes this to arthritis and torn rotator cuffs. Patient mentions receiving injections in her shoulders from a specialist.Plan:- Continue current pain management plan, including specialist care for shoulder injections- Follow up with primary care physician and pain specialist as scheduled Tobacco UseAssessment: Patient is a current smoker but reports reducing consumption to 6 cigarettes per day.Plan:- Encourage continued reduction in tobacco use- Provide education on smoking cessation resources if patient expresses interest Medical Decision MakingRuchi Meneses is a female patient with a history of depression, anxiety, and recent hospitalization for pneumonia and atrial failure, presenting with mood disturbances and multiple medical concerns. The patient's current medication regimen, including duloxetine and risperidone, has been effective for approximately 10 years with no significant side effects reported aside from weight gain. The risperidone, initially prescribed for anxiety, is being considered for dose reduction from thrice daily to twice daily due to patient's tendency to miss the third dose. Recent medical complications, including pneumonia, atrial failure, and liver spots requiring MRI, are contributing to the patient's mood disturbances. The patient denies suicidal ideation. Current smoking status (6 cigarettes/day) and multiple pain issues (arms, hands, hips, back, arthritis, torn rotator cuffs) are noted as potential complicating factors in the patient's overall health management. Plan Of Treatment Next Appt Details Provider Name:Azalea payne, 06/12/2025 01:30:00 PM, [address] [facility] [address] [facility] [address], [place], [address], Insurance Providers Payer Name Payer Address Payer Phone Subscriber Number Group Number Insured Name Patient Relationship to Insured Coverage Start Date Coverage End Date [employer] Medicare Replacement/ Advantage - Hmo [address] [address] [place] [address] [id number] RUCHI COULTER Self - patient is the insured Medical (General) History Medical History History ICD Code Problems: Bereavement Chronic post-traumatic stress disorder Diabetic peripheral neuropathy Essential hypertension Recurrent major depression in full remis chang pleural effusions- bilateral hyperlipidemia neuropathy Arthritis chronic back pain Surgical History Surgery Date(Month/Year) Partial repair of rotator cuff (90652971 7) Cervical arthrodesis (20197594) Carpal tunnel surgery (53762) 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
== END 2025-05-06 09:55 | disposition home or self-care (01) ==
PROVIDERS: PCP Emergency Medicine; Visit Provider Nurse Practitioner Family
DX: J90 Pleural effusion, not elsewhere classified (principal); J98.11 Atelectasis; I51.7 Cardiomegaly; N20.0 Calculus of kidney
CPT/HCPCS: 71250

== ENCOUNTER 2025-06-17 09:50 | Emergency (ER) | payer MEDICARE, SELFPAY ==
--- NOTE | ~2025-06-17 | XR_ITS ---
Examination: XR chest 2V Clinical History: cough, BECKIE, h/o COPD Comparison: 02/28/2025 Technique: PA and Lateral Findings: Cardiomediastinal silhouette normal size and configuration. Chronic bibasilar atelectasis and/or scarring. No acute bony abnormality. IMPRESSION: 1. No acute cardiopulmonary findings. Reviewed, dictated and finalized at location R. TROPHONIC ENGINEER
[2025-06-17 09:51] VITALS: BP 147/80; PULSE 72; RESP 16; TEMP 36.9; O2SAT 95
--- NOTE | 2025-06-17 11:40 | ECG_ITS ---
Test Date: 2025-06-17 11:47:11 Measurements Intervals [place] Rate: 64 P: 65 TN: 163 QRS: -24 QRSD: 95 T: 17 QT: 419 QTc: 433 Interpretive Statements SINUS RHYTHM INCOMPLETE RIGHT BUNDLE BRANCH BLOCK CANNOT R/O SEPTAL INFARCT, AGE INDETERMINATE BORDERLINE ST-T WAVE ABNORMALITY- ANTERIOR LEADS ABNORMAL ECG Compared to ECG 02/28/2025 14:23:30 Atrial fibrillation no longer present Electronically Signed On 06-17-2025 19:37:59 [employer] by Fransico Ortega D.O.
--- OUTSIDE RECORDS SUMMARY | 2025-06-17 11:42 | XMS_ITS | Patient Health Record ---
Author Organization [facility] As [employer] Address [address] [place] [address] Care Team Providers Care Network Management Specialist Name Role Phone Diego Mina MD Primary Care Provider Unavail able Azalea Ashley Unavailable [phone] Unavailable [phone] Parminder Gerard Unavailable [phone] Beatriz Ghotra Unavailable [phone] Allergies Allergen (clinical drug ingredient) Drug/Non Drug [...] twice a day; Duration: 30 days Active risperiDONE 1 MG Tablet 1 tablet Oral three times a day; Duration: 30 days Active Furosemide 40 MG Tablet 1 tablet Oral daily As needed 09/09/2023 Active risperiDONE 1 MG Tablet 1 tablet Oral twice a day; Duration: 30 days Patient just picked this up (refill not needed at this time). Refill approved when patient requests. 06/12/2025 Active Albuterol Sulfate HFA 108 (90 Base) MCG/ACT Aerosol Solution INHALE 1 TO 2 PUFFS BY MOUTH EVERY 4 TO 6 HOURS NEEDED FOR SHORTNESS OF BREATH OR WHEEZING Inhalation; Duration: 16 Days Active DULoxetine HCl 60 MG Capsule Delayed Release Particles 1 capsule Oral twice a day; Duration: 30 days Patient just picked this up (refill not needed at this time). Refill approved when patient requests. 06/12/2025 Active Metoprolol Tartrate 50 MG Tablet Oral; Duration: 90 Days Active Losartan Potassium 25 MG Tablet Oral; Duration: 30 Days Active Metoprolol Tartrate 25 MG Tablet Oral 09/09/2023 Active Gabapentin 800 MG Tablet 1 tablet Oral 3 times a day 09/09/2023 Active Nitrofurantoin Monohyd Macro 100 MG Capsule Oral 09/09/2023 Not-Filiberto ing Alendronate Sodium 70 MG Tablet 1 tablet 30 minutes before the first food, beverage or medicine of the day with plain water Oral daily 09/09/2023 Active Naloxone HCl 4 MG/0.1ML Liquid as directed Nasal daily As needed 09/09/2023 Not-Taking Simvastatin 20 MG Tablet TAKE 1 TABLET BY MOUTH DAILY Oral; Duration: 90 Days Active HYDROcodone-Acetaminop hen 5-325 MG Tablet 1 tablet as needed Oral daily; Duration: 14 days As needed Not-Taking Xarelto 20 MG Tablet TAKE 1 TABLET BY MOUTH EVERY DAY Oral; Duration: 90 Days Active Social History Tobacco Use: Social History [...] Notes Problem Recurrent major depression in remission (22028580) Major depressive disorder, recurrent, in partial remission (F33.41) Active confirmed Problem Recurrent major depression in full remission (21549215) Major depressive disorder, recurrent, in full remission (F33.42) Active confirmed Problem Posttraumatic stress disorder (30430426) Post-traumatic stress disorder, chronic (F43.12) Active confirmed Vital Signs Heart Rate 73 /min 06/12/2025 Height-cm 154.94 cm 06/12/2025 Blood pressure diastolic 92 mm Hg 06/12/2025 Weight-kg 80.29 kg 06/12/2025 Height 61.00 in 06/12/2025 Blood pressure systolic 146 mm Hg 06/12/2025 Weight 177 lbs 06/12/2025 BMI 33.44 kg/m2 06/12/2025 Encounters Encounter Location Date Provider Diagnosis [facility] [address] [address] 07/07/2024 Thena Jad Hypertension, unspecified type 401.9 ; Major depressive disorder, recurrent, in full remission F33.42 ; Post-traumatic stress disorder, chronic F43.12 ; 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 and Benign essential HTN I10 [employer] [facility] [address] [address] 09/07/2024 Thena Jad Major depressive disorder, recurrent, in full remission F33.42 ; Post-traumatic stress disorder, chronic F43.12 and Benign essential HTN I10 [employer], [address] [place] [address] 12/18/2024 Parminder Clubb Negative depression screening Z13.31 ; Major depressive disorder, recurrent, in full remission F33.42 ; Nicotine use Z72.0 and Post-traumatic stress disorder, chronic F43.12 [facility] [employer] [facility] [address] [facility] [address] [facility] [address] [place] [address] 03/20/2025 Beatriz Ghotra Major depressive disorder, recurrent, in full remission F33.42 ; Post-traumatic stress disorder, chronic F43.12 and Nicotine use Z72.0 [facility] [employer] [facility], [address] [facility] [address] [facility] [address] [place] [address] 06/12/2025 Parminder Clubb Major depressive disorder, recurrent, in full remission F33.42 and Nicotine use Z72.0 [facility] [employer] [facility] [address] [facility] [address] [facility] [address] [place] [address] 06/12/2025 Azalea Ashley Assessments Encounter Date Diagnosis (ICD Code) Assessment Notes Treatment Notes Treatment Clinical Notes Section Notes 07/07/2024 Hypertension, unspecified type (ICD9-CM - 401.9) 06/12/2025 Major depressive disorder, recurrent, in full remission (ICD-10 - F33.42) Assessment and plan reviewed with patient Call for problems with medication, side effects or need for dosage change Compliance issues reviewed Discussed the risks/benefits of this medication Discussed medication side effects Return if symptoms worsen Treatment options reviewed. discussed that it can take weeks to see full therapeutic effects of psychotropic medications. discussed when to seek emergency services. discussed crisis prevention hotline 988. 06/12/2025 Nicotine use (ICD-10 - Z72.0) 6-Quit - Yes [place] Tobacco Quitline Call a Smoking Quitline The National [employer] [place]'s Smoking Quitline, (0-081-84I-QUIT) Smokefree.gov, which connects you with your State's Quitline, (4-843-VETBFNF) Veterans Smoking Quitline, (2-817-UHMDHUH) 12/18/2024 Major depressive disorder, recurrent, in full remission (ICD-10 - F33.42) 12/18/2024 Negative depression screening (ICD-10 - Z13.31) 09/07/2024 Major depressive disorder, recurrent, in full remission (ICD-10 - F33.42) 09/07/2024 Post-traumatic stress disorder, chronic (ICD-10 - F43.12) 03/20/2025 Major depressive disorder, recurrent, in full remission (ICD-10 - F33.42) 03/20/2025 Post-traumatic stress disorder, chronic (ICD-10 - F43.12) 03/20/2025 Nicotine use (ICD-10 - Z72.0) 12/18/2024 Nicotine use (ICD-10 - Z72.0) 07/07/2024 [...] have been made to correct them. 03/20/2025 Other Ruchi Meneses is a female patient with a history of depression and anxiety, recently hospitalized for pneumonia, who has developed atrial fibrillation and is experiencing mood disturbances and chronic pain. Mood DisturbanceAssessm ent: Patient reports her mood has been rather [...] factors in the patient's overall health management. 06/12/2025 Other 1. Anxiety Disorder - Assessment: Patient reports overall good anxiety control on current regimen of risperidone twice daily and duloxetine twice daily. She experiences predictable afternoon anxiety symptoms that respond well to her afternoon risperidone dose. When asked about reducing risperidone to once daily, patient declined, stating she would not do well with this reduction. She demonstrates good insight into her symptom patterns and medication needs. - Plan: a. Continue risperidone 1 mg twice daily b. Continue duloxetine 60 mg twice daily. c. Refills sent to [facility] in [place] with note that patient just picked up medications and refill not needed at this time, refill approved when patient requests d. Follow-up in 3 months 2. Depressed Mood - Assessment: Patient reports occasional depressive episodes that appear situational in nature, specifically related to not getting out enough. She denies persistent depressed mood and attributes her low mood to environmental factors rather than underlying depression. No suicidal ideation reported. - Plan: a. Continue current psychiatric medication regimen b. Patient advised she can walk in for appointment if concerns arise before scheduled follow-up Follow-up: - Plan: Follow-up in 3 months Plan Of Treatment Next Appt Details Provider Name:Parminder Gerard, 09/10/2025 01:30:00 PM, [address] [facility] [address] [facility] [address], [place], [address], Insurance Providers Payer Name Payer Address Payer Phone Subscriber Number Group Number Insured Name Patient Relationship to Insured Coverage Start Date Coverage End Date [facility] Medicare Replacement/ Advantage - Hmo [address] [address] [place] [address] [id number] RUCHI COULTER Self - patient is the insured Medical (General) History Medical History History ICD Code Problems: Bereavement Chronic post-traumatic stress disorder Diabetic peripheral neuropathy Essential hypertension Recurrent major depression in full remis chang pleural effusions- bilateral hyperlipidemia neuropathy Arthritis chronic back pain Surgical History Surgery Date(Month/Year) Partial repair of rotator cuff (03371794 7) Cervical arthrodesis (97619947) Carpal tunnel surgery (04513) 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
--- OUTSIDE RECORDS SUMMARY | 2025-06-17 11:42 | XMS_ITS | Clinical Summary ---
Author Organization [facility] Address [address] [place] [address] Care Team Providers Care Sand Cutter Name Role Phone Unavailable Primary Care Provider [...]
--- OUTSIDE RECORDS SUMMARY | 2025-06-17 11:42 | XMS_ITS | Encounter Summary ---
Author Organization [facility] Health Address [address] [place] [address] Care Team Providers Care Aircraft Inspection Record Clerk Name Role Phone Unavailable Primary Care Provider Unavailabl e Prior Encounters Date Type Department Care Team Description 07/31/2019 Converted CPS Chart Documents [facility] [address] [place] [address] <No scans attached> 07/31/2019 Converted 13x Documents [facility] [address] [place] [address] <No scans attached> Plan of [...] 2 ENDODONTIC THERAPY, MOLAR TOOTH (EXCLUDING FINAL PENTECOSTAL) Routine 07/25/2012 12:00 AM PST 30 PONTIC [...] 3 ENDODONTIC THERAPY, MOLAR TOOTH (EXCLUDING FINAL PENTECOSTAL) Routine 07/25/2012 12:00 AM PST 31 ENDODONTIC THERAPY, MOLAR TOOTH (EXCLUDING FINAL PENTECOSTAL) Routine 07/25/2012 12:00 AM PST 4 CROWN [...]
[2025-06-17] MEDS: ALBUTEROL SULFATE NEB 2.5 MG/3 ML INH 10 MG INHALATION (11:44)
[2025-06-17] MEDS: IPRATROPIUM BR 0.02% INH SOLN 0.5 MG/2.5 ML VIAL 1 MG INHALATION (11:44)
[2025-06-17 11:48] VITALS: PULSE 65; RESP 18
[2025-06-17 12:55] VITALS: PULSE 81; RESP 16
[2025-06-17 13:20] VITALS: BP 138/78; PULSE 81; RESP 18; O2SAT 95
--- NOTE | 2025-06-17 14:56 | ED.SOB ---
HPI - SOB/Dyspnea General Chief Complaint: Shortness of Breath/Dyspnea Stated Complaint: dyspnea Time Seen by Provider: 06/17/25 11:36 History of Present Illness HPI Narrative: Patient here with increased dyspnea for the last 2-3 days, h/o COPD and has been trying her inhaler w/o improvement. Related Data Home Medications ?Medication ?Instructions ?Recorded ?Confirmed ?Last Taken ?Type duloxetine 60 mg capsule,delayed 60 mg PO BID 12/26/19 04/09/25 10/27/22 History release (Cymbalta) risperidone 1 mg tablet 1 mg PO TID 10/22/22 04/09/25 02/22/25 History rivaroxaban 20 mg PO DAILY 02/22/25 04/09/25 02/21/25 18:00 History metoprolol tartrate 50 mg tablet 25 mg PO BID 03/30/25 04/09/25 Unknown History Allergies Allergy/AdvReac Type Severity Reaction Status Date / Time erythromycin base Allergy Hives Verified 04/09/25 09:52 Penicillins Allergy Hives Verified 04/09/25 09:52 Review of Systems Review of Systems: All systems reviewed & are unremarkable except as noted in HPI and below PMFSH Past Medical History Medical History Type 2 diabetes mellitus Diet-controlled, recent A1c was 6.0. Atrial fibrillation Frequent urinary tract infections Mild pulmonary hypertension Estimated PASP of 46 mmHg on echo in 10/2022. Diastolic dysfunction Echocardiogram on 10/23/2022: normal LV size and function, estimated EF of 55 to 60%, diastolic dysfunction, moderate left atrial enlargement, and mild pulmonary hypertension. Chronic pain syndrome Vitamin D deficiency Normocytic anemia Nicotine use Depression with anxiety Kidney stones Shingles Arthritis Gastroesophageal reflux disease Hypertension Hyperlipidemia Chronic obstructive pulmonary disease Sinus congestion Surgical History Surgical History History of fusion of cervical spine C4 through C6. History of lithotripsy History of hernia repair History of appendectomy Family History Family History Sibling Family history of blood dyscrasia Family history of malignant neoplasm Family history of seizure disorder Mother Family history of malignant neoplasm, Onset Age: 85 Family history of lymphoma, Onset Age: 85 Family history of atrial fibrillation, Onset Age: 85 Social History Social History Social History: Surrogate medical decision maker: Usha Ashley, granddaughter. Code status: Full code. Years smoked: 7 Smoking status: Current every day smoker Tobacco type: cigarettes Second hand tobacco smoke exposure: Yes Alcohol intake: never Substance use: never Substance use type: does not use Lack of Transportation: No Lack of Food: Never True Current Housing: I Have Housing Concerned About Future Housing: No Difficulty Paying Gas/Electric Bills: No Difficulty Paying for Meds: No Currently Unemployed: No Education: Associate Degree Difficulty w/ Childcare or Family Care: No Living arrangements: alone Spiritual care concerns: No Agree to blood products: Yes Exam Narrative: EXAMINATION OF ORGAN SYSTEMS/BODY AREAS: Constitutional: Vital signs per nursing GENERAL:[No acute distress, non-toxic appearing.] HEAD: Normal with no signs of head trauma. EYES: EOMI, conjunctiva normal ENT: Hearing grossly intact LUNGS: Nonlabored breathing. Wheezing bilaterally. HEART: [Regular rate and rhythm] ABD: [Soft], [nontender to palpation] EXT: Normal range of motion SKIN: [No rashes or lesions.] NEURO: [Alert. No gross focal sensory or strength deficits.] PSYCH: Normal affect Course Vital Signs Vital signs: Vital Signs Temperature 98.5 F 06/17/25 09:51 Pulse Rate 72 06/17/25 09:51 Respiratory Rate 16 06/17/25 09:51 Blood Pressure 147/80 H 06/17/25 09:51 Pulse Oximetry 95 06/17/25 09:51 Oxygen Delivery Room Air 06/17/25 09:51 Temperature 98.5 F 06/17/25 09:51 Pulse Rate 81 06/17/25 13:20 Respiratory Rate 18 06/17/25 13:20 Blood Pressure 138/78 06/17/25 13:20 Pulse Oximetry 95 06/17/25 13:20 Oxygen Delivery Room Air 06/17/25 09:51 MDM MDM Narrative Medical decision making narrative: ED COURSE AND MEDICAL DECISION MAKINF with acute dyspnea and wheezing likely due to acute COPD exacerbation based on history and exam. Patient is hemodynamically stable. Nebulizer treatments are started and steroids given orally. Chest x-ray is clear. EKG - 12-Lead: Performed at 1147. Interpreted by me. [Sinus rhythm]. Rate 64. [Normal] axis. AR-interval [normal]. QRS duration [normal]. QTc [normal]. [No ST segment elevation or depression]. [T-wave normal]. Impression: No EKG evidence of acute ischemia or dysrhythmia. Patient monitored in the ED for a couple of hours and on reevaluation feels fine. No respiratory distress or accessory muscle use. Good air movement bilateral lungs. Speaking full sentences. Prescriptions for steroid course provided. I did offer admission for additional treatment, patient says she would prefer to go home. She is given strict return precautions, promises to come back if her symptoms return or worsen, and patient is discharged in stable/improved condition. Differential Diagnosis Differential Diagnosis: COPD, ACS, pneumonia, pneumothorax, etc. Imaging Data Radiologist's impression: ITS Impressions Chest X-Ray 06/17/25 10:47 IMPRESSION: 1. No acute cardiopulmonary findings. Discharge Plan Discharge Clinical Impression: Acute bronchitis Patient Disposition: Home Condition: Stable Instructions: Acute Bronchitis (ED) Additional Instructions: Take medications as prescribed, continue using your inhalers, and follow-up with primary care doctor. If your breathing gets worse, if you start developing chest pain or anything else concerning, please come back to the ER. Patient Language: Tongan Prescriptions: New prednisone 20 mg tablet 40 mg PO DAILY 4 Days Qty: 8 0RF No Action duloxetine [Cymbalta] 60 mg capsule,delayed release(DR/EC) 60 mg PO BID Rx Instructions: TAKE 1 CAPSULE PO BID; cholecalciferol (vitamin D3) 50 mcg (2,000 unit) capsule See Rx Instructions .ROUTE .COMPLEX Qty: 90 3RF Dose Instruction: TAKE 1 CAPSULE BY MOUTH DAILY Rx Instructions: TAKE 1 CAPSULE BY MOUTH DAILY gabapentin 800 mg tablet See Rx Instructions .ROUTE .COMPLEX Qty: 360 2RF Dose Instruction: TAKE 1 TABLET BY MOUTH FOUR TIMES DAILY Rx Instructions: TAKE 1 TABLET BY MOUTH FOUR TIMES DAILY metoprolol tartrate 50 mg tablet 25 mg PO BID risperidone 1 mg tablet 1 mg PO TID rivaroxaban [Xarelto] 20 mg PO DAILY simvastatin 20 mg tablet See Rx Instructions .ROUTE .COMPLEX Qty: 90 2RF Dose Instruction: TAKE 1 TABLET BY MOUTH DAILY Rx Instructions: TAKE 1 TABLET BY MOUTH DAILY ipratropium-albuterol 0.5 mg-3 mg(2.5 mg base)/3 mL solution for nebulization 3 ml inhalation Q6H PRN (Reason: shortness of breath or wheezing) Qty: 360 1RF benzonatate 100 mg capsule 100 mg PO TID PRN (Reason: Cough) Qty: 90 1RF Follow-up/Referrals: Diego Mina MD [Primary Care Provider, Internal Medicine]
== END 2025-06-17 13:22 | disposition home or self-care (01) ==
PROVIDERS: Emergency Provider Emergency Medicine; PCP Emergency Medicine
DX: J20.9 Acute bronchitis, unspecified (principal); J44.0 Chronic obstructive pulmonary disease with (acute) lower respiratory infection; I11.9 Hypertensive heart disease without heart failure; I48.91 Unspecified atrial fibrillation; E11.9 Type 2 diabetes mellitus without complications; E78.5 Hyperlipidemia, unspecified; E55.9 Vitamin D deficiency, unspecified; J44.9 Chronic obstructive pulmonary disease, unspecified; K21.9 Gastro-esophageal reflux disease without esophagitis; M19.90 Unspecified osteoarthritis, unspecified site; F41.8 Other specified anxiety disorders; F17.210 Nicotine dependence, cigarettes, uncomplicated; Z98.1 Arthrodesis status; Z87.442 Personal history of urinary calculi; Z79.01 Long term (current) use of anticoagulants; Z79.899 Other long term (current) drug therapy
CPT/HCPCS: 71046; 93005; 94640; 99283; J7512

== ENCOUNTER 2025-06-22 09:54 | Inpatient (IN) | payer MEDICARE, SELFPAY ==
[2025-06-22] VITALS (25 sets, daily range): BP systolic 96–159; BP diastolic 53–120; PULSE 76–170; RESP 17–26; TEMP 36.5–36.8; O2SAT 86–98; BMI 35.0
--- NOTE | 2025-06-22 | ECHO_ITS ---
Patient Info Name: Ruchi Norton Age: 74 years : 1950 Gender: Female Ht: 61 in Wt: 179 lbs BSA: 1.91 m2 HR: 147 bpm BP: 106 / 68 mmHg Heart Rhythm: Atrial Fibrillation Technical Quality: Fair Exam Date: 06/22/2025 4:02 PM Patient Status: I Admit Date: 06/22/2025 Exam Type: CA echo dop color flow w con Complete two-dimensional, color flow and Doppler transthoracic echocardiogram is performed with contrast to opacify the left ventricle and to improve the deliniation of the left ventricle endocardial borders. Staff Referring Physician: Donte Whitehead Hr Specialist: Alena Veras Attending Provider: Carlos Enrique Zelaya Contrast/Agitated Saline Contrast/Ag. Saline: Definity Amount: 2.00 ml Administered By: Alena Veras Existing IV Access: Yes IV Access Condition: patent with no signs of infiltration Summary 1. Left ventricular systolic function is hyperdynamic, estimated at >70. 2. There is mildly increased left ventricular wall thickness. 3. The left ventricular diastolic function is abnormal. 4. Left atrial chamber dimension is mildly enlarged. 5. There is small pericardial effusion. 6. atrial fibrillation with RVR. Left Ventricle Left ventricular chamber dimension is normal. Left ventricular systolic function is hyperdynamic, estimated at >70. There is mildly increased left ventricular wall thickness. Left ventricular septal wall motion is normal. The left ventricular diastolic function is abnormal. Right Ventricle Right ventricular chamber dimension is normal. Right ventricular systolic function is normal. Left Atria Left atrial chamber dimension is mildly enlarged. Right Atria Right atrial chamber dimension is normal. Aortic Valve The aortic valve is probable trileaflet. There is no aortic valve sclerosis. There is no aortic valve stenosis. There is no aortic valve regurgitation. Pulmonic Valve The pulmonic valve is normal. There is no pulmonic valve stenosis. There is no pulmonic regurgitation. Mitral Valve The mitral valve has normal leaflets. There is no mitral valve stenosis. There is no mitral valve regurgitation. Tricuspid Valve The tricuspid valve leaflets are normal. There is no significant tricuspid valve stenosis. There is no tricuspid valve regurgitation. Pericardium/Pleural The pericardium appears normal. There is small pericardial effusion. Inferior Vena Cava Not well visualized inferior vena cava. Aorta The aortic root size at the sinus of Valsalva is normal. The prox ascending aorta size is normal. Left Ventricular Outflow Tract Name Value Normal LVOT 2D LVOT Diameter 2.0 cm LVOT Doppler LVOT Peak Velocity 125 cm/s LVOT Peak Gradient 4 mmHg LVOT Mean Gradient 2 mmHg LVOT VTI 18 cm LVOT VTI/AV VTI Ratio 0.8 LVOT Stroke Volume 58 ml LVOT CO 3.1 l/min LVOT CI 1.6 l/min/m2 Pulmonic Valve Name Value Normal RVOT Doppler RVOT Peak Velocity 74 cm/s RVOT Peak Gradient 2 mmHg PV Doppler PV Peak Velocity 123 cm/s PV Peak Gradient 3 mmHg Mitral Valve Name Value Normal MV Diastolic Function MV E Peak Velocity 97 cm/s MV A Peak Velocity 2 cm/s MV E/A 41.4 MV Decel Time (PW) 89 ms MV Annular TDI MV E/e' (Septal) 10.4 MV E/e' (Lateral) 13.4 MV E/e' (Average) 11.9 Tricuspid Valve Name Value Normal TV Annular TDI TV Lateral Patricia s' Velocity 12.0 cm/s >=9.5 Aorta Name Value Normal Ascending Aorta Ao Root Diameter (MM) 2.9 cm Ao Root Diam Index (MM) 1.5 cm/m2 Aortic Valve Name Value Normal AV Doppler AV Peak Velocity 162 cm/s AV Peak Gradient 3 mmHg AV Mean Gradient 1 mmHg AV VTI 23 cm AV Area (Cont Eq VTI) 2.6 cm2 >=3.0 AV Area (Cont Eq Niranjan) 2.6 cm2 AV DI (Niranjan) 0.78 AV Regurgitation 2D LVOT Area 3.3 cm2 Ventricles Name Value Normal LV Dimensions 2D/MM IVS Diastolic Thickness (2D) 1.2 cm 0.6-1.0 LVID Diastole (2D) 4.4 cm 3.8-5.2 LVIW Diastolic Thickness (2D) 1.1 cm 0.6-0.9 LVID Systole (2D) 2.9 cm 2.2-3.5 LVOT Diameter 2.0 cm LV Mass (2D Cubed) 187.96 g 67.00-162.00 LV Mass Index (2D Cubed) 99 g/m2 43-95 Relative Wall Thickness (2D) 0.51 <=0.42 LV Fractional Shortening/Ejection Fraction 2D/MM LV Fractional Shortening (2D) 35 % 27-45 LV EF (2D Teichholz) 64 % LV Diastolic Volume (4C MOD) 68 ml LV EF (4C MOD) 69 % LV Diastolic Volume (2C MOD) 43 ml LV EF (2C MOD) 73 % LV Diastolic Volume (BP MOD) 55 ml 46-106 LV Diastolic Volume Index (BP MOD) 29 ml/m2 29-61 LV Systolic Volume (BP MOD) 16 ml 14-42 LV Systolic Volume Index (BP MOD) 8 ml/m2 8-24 LV EF (BP MOD) 72 % 54-74 LV Diastolic Length (4C) 7.3 cm LV Systolic Length (4C) 6.3 cm LV Stroke Volume (4C MOD) 47 ml Atria Name Value Normal LA Dimensions LA Dimension (MM) 4.5 cm 2.7-3.8 LA Volume (4C A-L) 69 ml LA Volume (BP A-L) 81 ml RA Dimensions RA Area (4C) 23.4 cm2 <=18.0 Report Signatures
--- NOTE | ~2025-06-22 | XR_ITS ---
Examination: XR chest 1V portable Clinical History: SOB Comparison: 1 day prior Technique: Portable AP Findings: Unchanged cardiomegaly. Bilateral pleural effusions and bibasilar atelectasis. Worsening diffuse interstitial markings. Worsening airspace disease right upper lobe. No acute bony abnormality. IMPRESSION: 1. Worsening right upper lobe airspace disease or pneumonia. 2. Worsening interstitial pulmonary edema. 3. Persistent pleural effusions and bibasilar atelectasis Reviewed, dictated and finalized at location R. MOTIVE ARTIST
--- NOTE | ~2025-06-22 | CT_ITS ---
EXAMINATION: CT diagnostic chest wo con, 06/23/2025 18:00 FLIGHT DECK OFFICER HISTORY: Pulm edema vs pneumnia COMPARISON: No comparisons available. TECHNIQUE: CT scan of the chest was performed without IV contrast. One or more of the following dose reduction techniques were used: automated exposure control, adjustment of the mA and/or kV according to patient size, use of iterative reconstruction technique. FINDINGS: No significant coronary calcification is present ([id number]) LUNGS: Trace left pleural effusion. Trace right pleural effusion. No tracheomalacia. No bronchiectasis. Minimal emphysematous changes. Mild pulmonary fibrotic changes. There are bilateral areas of groundglass attenuation with infiltrates in the upper lobes bilaterally, the left lower lobe and the right lower lobe as well as the right middle lobe. Scattered micronodules are noted which are probably infectious. HEART AND PERICARDIUM: Mild cardiomegaly. Trace pericardial effusion. AORTA: Normal caliber aorta. ADENOPATHY/MEDIASTINUM: None. LIMITED VIEWS OF THE ABDOMEN: Complex appearing liver cysts the largest right lobe liver 1 x 1 cm. Right kidney renal calculi noted the largest mid pole 3 mm with partially imaged probable renal cyst 2 x 2 cm. Left kidney renal calculi the largest mid pole 2 mm. There is thickening of the adrenal glands bilaterally with left adrenal nodule 1 x 1 cm probable benign adrenal adenoma. Small hiatal hernia noted. OSSEOUS STRUCTURES: No acute osseous abnormality.No suspicious lesions. OVERLYING SOFT TISSUES: Unremarkable. THYROID: The thyroid is unremarkable. IMPRESSION: Severe bilateral bronchopneumonia. Follow-up recommended to assess resolution. Reviewed, dictated and finalized at location P. HT DECK OFFICER
--- NOTE | ~2025-06-22 | XR_ITS ---
EXAMINATION: XR chest 1V portable COMPARISON: No comparisons available. HISTORY: pneumonia FINDINGS: Moderate pulmonary venous congestion. Small basilar infiltrates with small No pneumothorax. Moderate cardiomegaly. Mediastinal and hilar contours are within normal limits. Bony thorax no acute abnormality. Miscellaneous: None Impression: CHF. Superimposed left lower lobe probable pneumonia. The findings appear relatively unchanged Reviewed, dictated and finalized at location P. YSTEM ECOLOGY PROFESSOR Impression: CHF. Superimposed left lower lobe probable pneumonia. The findings appear relat ively unchanged
--- NOTE | ~2025-06-22 | XR_ITS ---
EXAMINATION: XR chest 2V DATE: 06/22/2025 11:20 INDICATION: Shortness of breath TECHNIQUE: Frontal and lateral views of the chest were obtained. COMPARISON: June 17, 2025 FINDINGS: Mild bibasilar atelectatic appearing changes with trace effusions. Mid and upper lung sherwood are clear. Heart shadow mildly enlarged. Vascular shadows mildly prominent. Fusion hardware in the lower cervical spine. IMPRESSION: 1. Small bilateral pleural effusions with vascular changes which may represent mild vascular congestion. Atypical inflammatory or infectious process may be present however. Reviewed, dictated and finalized at location A. NING EQUIPMENT OPERATOR IMPRESSION: 1. Small bilateral pleural effusions with vascular changes which may represent mild vascular congestion. Atypical inflammatory or infectious process may be pr esent however.
--- NOTE | ~2025-06-22 | CT_ITS ---
CT HEAD NON-CONTRAST Clinical History: 04/20 Headache Comparison: Brain MRI 12/05/2020 Technique: Unenhanced axial images skull base to vertex Coronal, sagittal reformats CT images acquired with automatic exposure control for dose reduction DLP: 681 mGy-cm Findings: Age-related atrophy. White matter changes, typically chronic microvascular ischemic disease. Sulci, ventricles: Unremarkable. No intracerebral hemorrhage. No evidence acute territorial infarct. No mass effect, midline shift. Bony calvarium intact. Visualized paranasal sinuses: Clear. Mastoid air cells: Clear. IMPRESSION: 1. No acute intracranial findings. Reviewed, dictated and finalized at location R. CAL LAB TECHNICIAN
--- NOTE | ~2025-06-22 | XR_ITS ---
EXAMINATION: XR chest 1V portable DATE: 06/28/2025 05:05 INDICATION: CHF TECHNIQUE: A single frontal view of the chest was obtained. COMPARISON: June 26 chest x-ray FINDINGS: Improved inflation and aeration of the left lung base with significantly reduced left sided effusion. Persistent hazy opacification throughout the left lung may represent layering effusion with pulmonary edema or consolidation. Heart size normal. No pneumothorax or subphrenic free air seen. IMPRESSION: 1. Improved aeration of left lung base with decreased size of effusion. Layering effusion may be present along with persisting pulmonary edema/consolidation. Reviewed, dictated and finalized at location A. HEAD IMPRESSION: 1. Improved aeration of left lung base with decreased size of effusion. Layerin g effusion may be present along with persisting pulmonary edema/consolidation.
--- NOTE | 2025-06-22 10:17 | ECG_ITS ---
Test Date: 2025-06-22 10:29:10 Measurements Intervals [place] Rate: 76 P: 69 NM: 149 QRS: -26 QRSD: 84 T: 21 QT: 373 QTc: 421 Interpretive Statements SINUS RHYTHM WITH OCCASIONAL VENTRICULAR PREMATURE COMPLEXES WITH OCCASIONAL SUPRAVENTRICULAR PREMATURE COMPLEXES POSSIBLE RIGHT VENTRICULAR CONDUCTION DELAY CANNOT R/O SEPTAL INFARCT, AGE INDETERMINATE ABNORMAL ECG Compared to ECG 06/17/2025 11:47:11 PAC and PVC now present Electronically Signed On 06-22-2025 10:53:45 LOTUS NOTES ADMINISTRATOR by Fransico Ortega D.O.
--- NOTE | 2025-06-22 10:50 | ED.GENADULT ---
HPI - General Adult General Chief complaint: Shortness of Breath/Dyspnea Stated complaint: SOB Time Seen by Provider: 06/22/25 10:49 History of Present Illness HPI narrative: 74-year-old female with non oxygen dependent COPD presents emergency department with couple days of nonproductive cough progressive shortness of breath dyspnea exertion chest tightness. She denies any lower extremity swelling mother be bilateral unilateral, denies any sore throat or sick contacts. Denies any headache. States that she was here couple days ago felt she needed more breathing treatments wanted to get home. Patient states that this feels like her typical COPD exacerbations. Related Data Home Medications ?Medication ?Instructions ?Recorded ?Confirmed ?Last Taken ?Type duloxetine 60 mg capsule,delayed 60 mg PO BID 12/26/19 04/09/25 10/27/22 History release (Cymbalta) risperidone 1 mg tablet 1 mg PO TID 10/22/22 04/09/25 02/22/25 History rivaroxaban 20 mg PO DAILY 02/22/25 04/09/25 02/21/25 18:00 History metoprolol tartrate 50 mg tablet 25 mg PO BID 03/30/25 04/09/25 Unknown History Allergies Allergy/AdvReac Type Severity Reaction Status Date / Time erythromycin base Allergy Hives Verified 06/20/25 08:34 Penicillins Allergy Hives Verified 06/20/25 08:34 Review of Systems Review of Systems: All systems reviewed & are unremarkable except as noted in HPI and below PMFSH Past Medical History Medical History (Updated 06/22/25 @ 15:25 by Donte Whitehead MD) Mild pulmonary hypertension Estimated PASP of 46 mmHg on echo in 10/2022. Diastolic dysfunction Echocardiogram on 10/23/2022: normal LV size and function, estimated EF of 55 to 60%, diastolic dysfunction, moderate left atrial enlargement, and mild pulmonary hypertension. Hyperlipidemia Type 2 diabetes mellitus Diet-controlled, recent A1c was 5.9% 03/2025. Atrial fibrillation Frequent urinary tract infections Chronic pain syndrome Vitamin D deficiency Normocytic anemia Nicotine use Depression with anxiety Kidney stones Shingles Arthritis Gastroesophageal reflux disease Hypertension Chronic obstructive pulmonary disease Sinus congestion Surgical History Surgical History History of fusion of cervical spine C4 through C6. History of lithotripsy History of hernia repair History of appendectomy Family History Family History Sibling Family history of blood dyscrasia Family history of malignant neoplasm Family history of seizure disorder Mother Family history of malignant neoplasm, Onset Age: 85 Family history of lymphoma, Onset Age: 85 Family history of atrial fibrillation, Onset Age: 85 Social History Social History Social History: Surrogate medical decision maker: Usha Ashley, granddaughter. Code status: Full code. Years smoked: 7 Smoking status: Current every day smoker Tobacco type: cigarettes Second hand tobacco smoke exposure: Yes Alcohol intake: never Substance use: never Substance use type: does not use Lack of Transportation: No Lack of Food: Never True Current Housing: I Have Housing Concerned About Future Housing: No Difficulty Paying Gas/Electric Bills: No Difficulty Paying for Meds: No Currently Unemployed: No Education: Associate Degree Difficulty w/ Childcare or Family Care: No Living arrangements: alone Spiritual care concerns: No Agree to blood products: Yes Exam Narrative: EXAMINATION OF ORGAN SYSTEMS/BODY AREAS: Constitutional: Vital signs per nursing GENERAL:No acute distress, non-toxic appearing. HEAD: Normal with no signs of head trauma. EYES: EOMI, conjunctiva normal ENT: Hearing grossly intact LUNGS: Nonlabored breathing speaking full sentences but diffuse expiratory wheezes heard throughout. HEART: Regular rate and rhythm 2+ radial pulses brisk cap refill ABD: Soft, nontender to palpation EXT: Normal range of motion SKIN: No rashes or lesions. NEURO: Alert. No gross focal sensory or strength deficits. PSYCH: Normal affect Course Vital Signs Vital signs: Vital Signs Temperature 36.5 C 06/22/25 10:04 Pulse Rate 81 06/22/25 10:04 Respiratory Rate 22 H 06/22/25 10:04 Blood Pressure 110/58 L 06/22/25 10:04 Pulse Oximetry 86 L 06/22/25 10:04 Oxygen Delivery Room Air 06/22/25 10:04 Temperature 36.7 C 06/22/25 15:21 Pulse Rate 155 H 06/22/25 15:21 Respiratory Rate 26 H 06/22/25 15:21 Blood Pressure 157/53 H 06/22/25 15:21 Pulse Oximetry 98 06/22/25 15:21 Oxygen Delivery Nasal Cannula 06/22/25 10:31 Oxygen Flow Rate 3 06/22/25 10:31 [facility] Differential Diagnosis Differential Diagnosis: 74-year-old female with history of COPD presents with shortness of breath. She has wheezing on exam I find her presentation most consistent with a [id number] COPD exacerbation however also rule out pneumothorax focal pneumonia or atypical presentation of acute coronary syndrome. The continuous vital sign monitoring, bronchodilators IV steroids IV fluids EKG chest x-ray and plan for evaluation after workup and treatment. Results and multiple re-evaluations Patient went into AFib with RVR that was stable she is mentating. She did start her on doses of IV metoprolol, her lung sounds are improved however she continues to wear supplemental oxygen required hospital admission. Spoke with the hospitalist who accepts admission. She will be admitted to step-down unit. She is admitted in serious condition. Medical Records I have reviewed the following patient records and this information was taken into consideration when formulating the assessment and plan.: previous labs and previous ER visits Lab Data [facility] Lab Attestation statement: I personally reviewed the patient's lab results. 06/22/25 11:00 06/22/25 11:00 Labs: Lab Results 06/22/25 06/22/25 06/22/25 Range/Units 11:00 11:37 14:29 WBC 10.9 H (4.5-10.0) K/mm3 RBC 4.11 L (4.2-5.4) M/mm3 Hgb 12.1 (12.0-15.0) g/dL Hct 37.2 (37.0-47.0) % MCV 90.5 (80-100) fl MCH 29.4 (26-34) pg MCHC 32.5 (32-36) g/dl RDW 14.9 H (11.5-14.5) % Plt Count 217 (150-375) k/mm3 MPV 11.4 H (7.4-10.4) fl Immature Gran % (Auto) 0.6 H (0-0.5) % Neut % (Auto) 67.3 (45.5-73.1) % Lymph % (Auto) 18.2 L (18.3-44.2) % [place] % (Auto) 12.8 H (2.6-8.5) % Eos % (Auto) 0.6 (0-4.4) % Baso % (Auto) 0.5 (0.2-1.2) % Lymph # (Auto) 1.98 (0.9-3.2) K/mm3 [place] # (Auto) 1.4 H (0.1-0.6) K/mm3 Eos # (Auto) 0.1 (0-0.3) K/mm3 Baso # (Auto) 0.1 (0.0-0.1) K/mm3 Abs Immat Gran (auto) 0.06 H (0.00-0.031) K/mm3 Absolute Neuts (auto) 7.4 H (1.3-6.7) K/mm3 Absolute Nucleated RBC 0.000 (0.0-0.012) K/mm3 Nucleated RBC % 0.0 (0.0-0.2) % Sodium 139 (137-145) mmol/L Potassium 3.4 (3.4-5.0) mmol/L Chloride 108 H (98-107) mmol/L Carbon Dioxide 29 (22-30) mmol/L Anion Gap 2 L (4-12) mmol/L BUN 16 (7-17) mg/dL Creatinine 1.09 H (0.7-1.0) mg/dL Estim Creat Clear Calc 40 ml/min Estimated GFR 49 L (59 - ) Glucose 119 H (65-110) mg/dL Calcium 9.5 (8.4-10.2) mg/dL Magnesium 2.1 (1.6-2.3) mg/dL Total Bilirubin 0.4 (0.2-1.3) mg/dL AST 18 (14-36) U/L ALT 13 (6-35) U/L Alkaline Phosphatase 60 (38-126) U/L Troponin I 0.051 H* 0.039 H* D (0.000-0.034) ng/mL NT-Pro-B Natriuret Pep 3630 H (19.9-100) pg/mL Total Protein 6.3 (6.3-8.2) g/dL Albumin 3.5 (3.5-5.1) g/dL Influenza A (RT-PCR) Negative (Negative) Influenza B (RT-PCR) Negative (Negative) RSV (RT-PCR) Negative (Negative) SARS-CoV-2 RNA (RT-PCR) Negative (Negative) Imaging Data Attestation: I personally reviewed and interpreted this imaging study as follows: My impression: Chest x-ray shows normal cardiac silhouette, slight pulmonary vascular congestion no infiltrate. No free air. Radiologist's impression: ITS Impressions Chest X-Ray 06/22/25 11:21 IMPRESSION: 1. Small bilateral pleural effusions with vascular changes which may represent mild vascular congestion. Atypical inflammatory or infectious process may be present however. ECG Data EKG #1: Attestation: I personally reviewed and interpreted this ECG as follows: Interpretation: 12 lead EKG per my interpretation is normal sinus rhythm at 76 beats per minute. Occasional PVCs. Normal axis. Normal intervals. No evidence of ST-T segment elevation depression. Overall impression abnormal EKG per Critical Care Time Critical Care Time Time Type: Intermittent Initial evaluation, discuss w/ involved parties, attempting to gather old records: 15 minutes Documenting medical record: 10 minutes Review of results (EKG's, labs, imaging): 5 minutes Serial repeat bedside evaluation: 15 minutes Discussing case with multiple memebers of the care team and consultants: 5 minutes Total Critical Care Time: 50 Discharge Plan Discharge Clinical Impression: COPD (chronic obstructive pulmonary disease), Atrial fibrillation with rapid ventricular response Patient Disposition: Still a Patient Condition: Stable
[2025-06-22 11:08] LABS: Hematocrit 37.2 % (37.0-47.0); Hemoglobin 12.1 g/dL (12.0-15.0); Immature Granulocyte Percent A 0.6 % (0-0.5); Lymphocytes Absolute Auto 1.98 K/mm3 (0.9-3.2); Mean Corpuscular HGB Conc 32.5 g/dl (32-36); Mean Corpuscular Hemoglobin 29.4 pg (26-34); Mean Corpuscular Volume 90.5 fl (80-100); Nucleated Red Blood Cells Absolute Auto 0.000 K/mm3 (0.0-0.012); Nucleated Red Blood Cells Perc 0.0 % (0.0-0.2); Platelet Count Result 217 k/mm3 (150-375); Red Blood Count 4.11 M/mm3 (4.2-5.4); White Blood Count 10.9 K/mm3 (4.5-10.0)
[2025-06-22] MEDS: SODIUM CHLORIDE 0.9% IV 1,000 ML 999 ML IV CONT ×2 (11:24→13:49)
[2025-06-22] MEDS: ALBUTEROL SULFATE NEB 2.5 MG/3 ML INH INHALATION ×3 (11:28→11:40)
[2025-06-22 11:34] LABS: Alanine Aminotransferase 13 U/L (6-35); Albumin Level 3.5 g/dL (3.5-5.1); Alkaline Phosphatase 60 U/L (38-126); Anion Gap 2 mmol/L (4-12); Aspartate Amino Transferase 18 U/L (14-36); Bilirubin,Total 0.4 mg/dL (0.2-1.3); Blood Urea Nitrogen 16 mg/dL (7-17); Calcium 9.5 mg/dL (8.4-10.2); Carbon Dioxide 29 mmol/L (22-30); Chloride 108 mmol/L (98-107); Estimated CRCL calculation 40 ml/min; Estimated Glomerular Filt Rate 49; Glucose 119 mg/dL (65-110); Magnesium 2.1 mg/dL (1.6-2.3); Potassium 3.4 mmol/L (3.4-5.0); Sodium 139 mmol/L (137-145); Total Protein 6.3 g/dL (6.3-8.2)
[2025-06-22 11:48] LABS: NT Pro B Type Natriuretic Pept 3630 pg/mL (19.9-100); Troponin I 0.051 ng/mL (0.000-0.034)
[2025-06-22 12:24] LABS: Influenza A QL RT-PCR Negative (Negative); Influenza B QL RT-PCR Negative (Negative); RSV RNA, RT-PCR Negative (Negative); SARS-CoV-2 RNA PCR Negative (Negative)
--- NOTE | 2025-06-22 13:40 | ECG_ITS ---
Test Date: 2025-06-22 13:40:47 Measurements Intervals [place] Rate: 165 P: 0 CO: 0 QRS: -26 QRSD: 86 T: 89 QT: 215 QTc: 357 Interpretive Statements ATRIAL FIBRILLATION WITH RAPID VENTRICULAR RESPONSE WITH VENTRICULAR PREMATURE COMPLEX POSSIBLE RIGHT VENTRICULAR CONDUCTION DELAY LEFT VENTRICULAR HYPERTROPHY WITH ST-T CHANGE CANNOT R/O SEPTAL INFARCT, AGE INDETERMINATE ST-T WAVE ABNORMALITY IN ANTEROLAT/INF LEADS- CONSIDER ISCHEMIA OR RATE RELATED BASELINE ARTIFACT- I, II, III, AVR, AVL, AVF, V1-V3 ABNORMAL ECG Compared to ECG 06/22/2025 10:29:10 SINUS RHYTHM NO LONGER PRESENT POSSIBLE ISCHEMIA NOW PRESENT Electronically Signed On 06-22-2025 14:21:03 DATA MANAGEMENT ANALYST by Fransico Ortega D.O.
[2025-06-22] MEDS: MAGNESIUM SULF 2 GM/WATER 50ML 2 GM/50 ML BAG IVPB (13:49)
[2025-06-22] MEDS: METOPROLOL TARTRATE INJ 5 MG/5 ML VIAL IV PUSH ×3 (13:49→15:45)
[2025-06-22] MEDS: METOPROLOL TARTRATE 50 MG TAB PO (14:20)
--- NOTE | 2025-06-22 14:20 | PM.IMHP2 ---
H&P: HPI History of Present Illness Date/Time: 06/22/25 14:20 Chief Complaint: Shortness of Breath Narrative: 74 y/o F with PMH of COPD, DM2 diet controlled, mild pulmonary HTN, diastolic dysfunction, chronic pain syndrome, anemia, depression/anxiety, kidney stones, HTN, and HLD presents here with continued shortness of breath. The patient presents here from home on 06/22 (Wednesday) for further evaluation of shortness of breath. She has a past medical history of COPD with no chronic supplemental O2 requirement. She has had ongoing shortness of breath for the past week. She was initially evaluated on 06/17 (Wednesday). At that time she reported 2-3 days of shortness of breath that was consistent with her previous COPD exacerbations. She had been using her home inhaler without improvement. At the time she was given a nebulizer and steroids, felt improved. She was offered admission for additional treatment however she preferred to treat at home was discharged home on oral prednisone. Now returning today as her shortness of breath has continued to be progressive and is now accompanied by a nonproductive cough and exertional chest tightness. She denies bilateral lower extremity swelling, headache, sore throat, chest pain, weight gain, fever, or chills. Initial VS at presentation: 97.7? F, HR 81, R 22, 110/58, and 86% on RA. Now 93% on 3L nasal cannula. ED workup showed: WBC 10.9, no anemia, creatinine 1.09 and GFR 49, glucose 119, initial troponin 0.051, BNP 3638, and viral PCR negative. CXR showed small bilateral pleural effusions with vascular changes which may represent mild vascular congestion. Atypical inflammatory infectious process may be present. EKG showed sinus rhythm with occasional ventricular premature complexes with occasional PVCs, possible right ventricular conduction delay, cannot rule out septal infarct. Review of Systems Review of Systems: All systems reviewed & are unremarkable except as noted in HPI and below [facility] Past Medical History Medical History (Updated 06/22/25 @ 15:38 by Chelsea Downey, ARTURO) Mild pulmonary hypertension Estimated PASP of 46 mmHg on echo in 10/2022. Diastolic dysfunction Echocardiogram on 10/23/2022: normal LV size and function, estimated EF of 55 to 60%, diastolic dysfunction, moderate left atrial enlargement, and mild pulmonary hypertension. Hyperlipidemia Type 2 diabetes mellitus Diet-controlled, recent A1c was 5.9% 03/2025. Atrial fibrillation Frequent urinary tract infections Chronic pain syndrome Vitamin D deficiency Normocytic anemia Nicotine use Depression with anxiety Kidney stones Shingles Arthritis Gastroesophageal reflux disease Hypertension Chronic obstructive pulmonary disease Sinus congestion Surgical History Surgical History History of fusion of cervical spine C4 through C6. History of lithotripsy History of hernia repair History of appendectomy Family History Family History Sibling Family history of blood dyscrasia Family history of malignant neoplasm Family history of seizure disorder Mother Family history of malignant neoplasm, Onset Age: 85 Family history of lymphoma, Onset Age: 85 Family history of atrial fibrillation, Onset Age: 85 Social History Social History Social History: Surrogate medical decision maker: Usha Ashley, granddaughter. Code status: Full code. Years smoked: 7 Smoking status: Former smoker Tobacco type: cigarettes Second hand tobacco smoke exposure: Yes Alcohol intake: never Substance use: current Substance use type: painkillers Other substance usage details: for chronic pain Lack of Transportation: No Lack of Food: Never True Current Housing: I Have Housing Concerned About Future Housing: No Difficulty Paying Gas/Electric Bills: No Difficulty Paying for Meds: No Currently Unemployed: No Education: High School Diploma/GED Difficulty w/ Childcare or Family Care: No Living arrangements: alone Spiritual care concerns: No Agree to blood products: Yes Meds Home Medications and Allergies Home Medications ?Medication ?Instructions ?Recorded ?Confirmed ?Type duloxetine 60 mg capsule,delayed 60 mg PO BID 12/26/19 06/22/25 History release (Cymbalta) risperidone 1 mg tablet 1 mg PO TID 10/22/22 06/22/25 History simvastatin 20 mg tablet See Rx Instructions .Route 10/11/24 06/22/25 Rx .COMPLEX #90 tabs cholecalciferol (vitamin D3) 50 See Rx Instructions .Route 11/24/24 06/22/25 Rx mcg (2,000 unit) capsule .COMPLEX #90 caps rivaroxaban 20 mg PO DAILY 02/22/25 06/22/25 History gabapentin 800 mg tablet See Rx Instructions .Route 03/30/25 06/22/25 Rx .COMPLEX #360 tabs metoprolol tartrate 50 mg tablet 25 mg PO BID 03/30/25 06/22/25 History ipratropium 0.5 mg-albuterol 3 mg 3 ml inhalation Q6H PRN shortness 05/03/25 06/22/25 Rx (2.5 mg base)/3 mL nebulization of breath or wheezing #360 mL soln benzonatate 100 mg capsule 100 mg PO TID PRN Cough #90 caps 05/09/25 06/22/25 Rx prednisone 20 mg tablet 40 mg (2 x 20 mg) PO DAILY 4 days 06/17/25 06/22/25 Rx #8 tabs budesonide 0.5 mg/2 mL suspension 0.5 mg (2 mL) inhalation DAILY #60 06/20/25 06/22/25 Rx for nebulization mL losartan 25 mg tablet 25 mg PO BID 06/22/25 06/22/25 History Allergies Allergy/AdvReac Type Severity Reaction Status Date / Time erythromycin base Allergy Hives Verified 06/22/25 15:29 Penicillins Allergy Hives Verified 06/22/25 15:29 Vital Signs Vital Signs - 24 hr 06/22/25 10:04 06/22/25 10:31 06/22/25 11:28 Temperature 97.7 F Pulse Rate 81 89 Respiratory Rate 22 H 20 Blood Pressure 110/58 L Pulse Oximetry 86 L 93 Oxygen Delivery Room Air Nasal Cannula Oxygen Flow Rate 3 06/22/25 11:36 06/22/25 11:50 06/22/25 13:49 Temperature Pulse Rate 76 82 170 H Respiratory Rate 18 18 Blood Pressure Pulse Oximetry Oxygen Delivery Oxygen Flow Rate Exam Const: General: comfortable and no acute distress Other: , female, elderly, nontoxic appearance HENMT: Face/Nose/Sinus: Normal nares present Mouth: Yes moist mucous membranes Eyes: General: appearance normal, both eyes and all related structures Sclera: sclerae normal Pupils: Equal, round and reactive pupils present EOM: EOMs intact bilaterally Resp: Other: Faint expiratory wheeze, mild tachypnea (ambulated to the restroom just prior to exam). No crackles appreciated. Cardio: Rate: tachycardic Rhythm: abnormal rhythm (Consistent with AFib) Other: S1-S2 present without murmur, rub, ectopy GI: Other: Abdomen soft, nondistended, nontender. Normoactive bowel sounds in all quadrants. Skin: General skin exam: normal color and no rashes or lesions noted Wounds: no wounds Neuro: Speech: normal speech Motor exam (neuro): 5/5 motor strength present throughout Sensory Exam: normal sensation Other: A&O x4 Extrem: Other: Trace edema to the bilateral ankles, symmetric and nonpitting Psych: Mental Status: mental status grossly normal Affect: normal affect Other: Good insight and judgment. Results Labs Labs: Short CBC 06/22/25 Range/Units 11:00 WBC 10.9 H (4.5-10.0) K/mm3 Hgb 12.1 (12.0-15.0) g/dL Hct 37.2 (37.0-47.0) % Plt Count 217 (150-375) k/mm3 BMP 06/22/25 11:00 Sodium 139 Potassium 3.4 Chloride 108 H Carbon Dioxide 29 BUN 16 Creatinine 1.09 H Glucose 119 H Calcium 9.5 Cardiac Enzymes 06/22/25 Range/Units 11:00 Troponin I 0.051 H* (0.000-0.034) ng/mL Liver Function 06/22/25 Range/Units 11:00 Total Bilirubin 0.4 (0.2-1.3) mg/dL AST 18 (14-36) U/L ALT 13 (6-35) U/L Alkaline Phosphatase 60 (38-126) U/L Albumin 3.5 (3.5-5.1) g/dL Quality VTE Prophylaxis VTE prophylaxis: pharmacologic ordered Assessment and Plan Assessment and plan (1) COPD (chronic obstructive pulmonary disease): Qualifiers: COPD type: unspecified COPD Qualified Code(s): J44.9 - Chronic obstructive pulmonary disease, unspecified Code(s): J44.9 - Chronic obstructive pulmonary disease, unspecified Status: Chronic Assessment and Plan: New shortness of breath, chronic dry cough that initially improved with nebulizer in the ED on 06 17. However has been progressively more short of breath since then. Admitted on 06/22. Initial evaluation in the ED showed diffuse expiratory wheezing, new O2 requirement, and tachypnea. Modestly improved with nebulizers. - continue levalbuterol/HR vent scheduled - prednisone 40 mg daily x5 days, given Solu-Medrol in the ED initially - start ceftriaxone and doxycycline on 06/22, allergy to erythromycin - Mucinex yudelka - continue supplemental O2 to maintain O2 sat greater than 92%, currently requiring 3L NC. No baseline requirement. (2) Atrial fibrillation with rapid ventricular response: Code(s): I48.91 - Unspecified atrial fibrillation Status: Acute Assessment and Plan: Patient arrived in NSR. Post multiple breathing treatments she developed AFib RVR, has history of AFib. Minimal response with metoprolol 5 mg IV x2. Given home metoprolol dose orally. Remains in the 120s, intermittently in the 150s. If no improvement with third dose of IV metoprolol, will transition to IV diltiazem. - admission to IMU - telemetry monitoring - IV metoprolol, if no improvement then transition to IV diltiazem with gtt and cardiology consult. hold home metoprolol. >> no improvement, orders placed - TSH reviewed, 1.44 on 02/23/2025 - continue Xarelto (3) Acute exacerbation of CHF (congestive heart failure): Qualifiers: Heart failure type: diastolic Qualified Code(s): I50.33 - Acute on chronic diastolic (congestive) heart failure Code(s): I50.9 - Heart failure, unspecified Status: Acute Assessment and Plan: CXR concerning for small bilateral pleural effusions with vascular changes which may represent mild vascular congestion or atypical inflammatory/infectious process. Denies any new peripheral edema or weight gain, does report she is at 3 lb of weight gain over the past few months however does not feel it is fluid related. Last echo on file in 2022 which showed EF of 55-60%, diastolic dysfunction, LV wall thickness increased, LA chamber moderately enlarged, mild pulmonary hypertension, trivial pericardial effusion. - update echo - monitor I&Os daily weights - Lasix 20 mg IV x2, further diuresis dependent on response to IV diuretic. Was given 2L in the ED. (4) Elevated troponin: Code(s): R79.89 - Other specified abnormal findings of blood chemistry Status: Acute Assessment and Plan: Likely type 2 given new hypoxia. Was 86% on room air due to COPD exacerbation. Troponin currently downtrending. No reports of chest pain. Does have some chest tightness with exertion, however shortness of breath significantly worsens with exertion as well. Now additionally in AFib RVR secondary to nebulizer treatments. EKG reviewed, no significant ST depressions or elevations. PACs and PVCs now present when compared to previous. - trend troponin - SL nitro p.r.n. (5) Hypertension: Qualifiers: Hypertension type: primary hypertension Qualified Code(s): I10 - Essential (primary) hypertension Code(s): I10 - Essential (primary) hypertension Status: Chronic Assessment and Plan: - chronic, currently 157/53, stable. - continue home medications: Losartan 25 mg b.i.d.. Holding metoprolol, see above. - monitor (6) Diabetes mellitus: Qualifiers: Diabetes mellitus complication status: without complication Diabetes mellitus intermediate card tender insulin use: without intermediate card tender use Diabetes mellitus type: type 2 Qualified Code(s): E11.9 - Type 2 diabetes mellitus without complications Code(s): E11.9 - Type 2 diabetes mellitus without complications Status: Chronic Assessment and Plan: Diet controlled. Last A1c 5.9% on 03/27/2025. - hypoglycemia protocol p.r.n. Plan Diet: Heart healthy GI Prophylaxis: N/a DVT Prophylaxis: Xarelto IV fluids: 2L bolus Lines/Tubes: pIV Code Status: Full code Prior Studies I have reviewed the following patient records and this information was taken into consideration when formulating the assessment and plan.: previous labs, previous ER visits, previous hospitalizations and previous clinic visits Time Spent with Patient Time with patient: less than 45 minutes Hospitalist MIPS Advance Care Plan I have confirmed that the patient's Advanced Care Plan is present, code status is documented, or surrogate decision maker is listed in patient medical record.: Yes Medication Reconciliation I have utilized all available resources to obtain, update and review the patients current medications (includes all prescriptions, OTC, herbals, cannabis, and nutritional supplements).: Yes
[2025-06-22] MEDS: IPRATROPIUM BR 0.02% INH SOLN 0.5 MG/2.5 ML VIAL INHALATION ×2 (14:31→20:26)
--- NOTE | 2025-06-22 14:44 | WPCEDHO ---
ED Hand Off Checklist All vitals saved:yes IV Site documented:yes All med administrations documented:yes Triage Note Triage Note Pt to ED from home for complaint 06/22/25 10:20 of SOB. States she was here wednesday and was supposed to be admitted for more breathing treatments but wanted to go home. agree with triage note Allergies erythromycin base Allergy (Verified 06/20/25 08:34) Hives eye ointment irritation Penicillins Allergy (Verified 06/20/25 08:34) Hives &itching Family History (Last Reviewed 04/09/25 @ 09:53 by Ilene Busch, [facility]) Sibling Family history of blood dyscrasia Family history of malignant neoplasm Family history of seizure disorder Mother Family history of malignant neoplasm Family history of lymphoma Family history of atrial fibrillation Active Medications including assessments/comments Magnesium Sulfate (Magnesium Sulf 2 Gm/Water 50ml) 2 gm in 50 mls @ 25 mls/hr IVPB ONCE ONE Stop: 06/22/25 15:39 Last Admin: 06/22/25 13:49 Dose: 25 mls/hr Documented By: KIMBER Co-signed By: JUSTIN Infusion/Titration Document 06/22/25 13:49 ELB (Rec: 06/22/25 13:49 ELB [id number]) Co-signed By Stefanie Ashley RN Intake IV Site Peripheral Access Left Antecubital Container Volume 50 Waste Amount 0 Dosing Infusion Rate 25 Increase/Decrease Started Elapsed Time Elapsed Time ( 0m minutes) Magnesium Sulfate Infusion Document 06/22/25 13:49 ELB (Rec: 06/22/25 13:49 KIMBER [id number]) Co-signed By Stefanie Ashley, screen maker Action Magnesium Sulfate Initiated Infusion Action Ipratropium [place] (Ipratropium Br 0.02% Inh Soln 0.5 Mg/2.5 Ml Vial) 0.5 mg INHALATION Q20M ROSE MARY Stop: 06/22/25 14:51 Last Admin: 06/22/25 14:31 Dose: 0.5 mg Documented By: LALITHA PARIKH Nebulizer Assessment Document 06/22/25 14:31 LALITHA (Rec: 06/22/25 14:31 LALITHA [id number]) Updraft Nebulizer Treatment Method Mask Treatment Tolerance Good Administered/Completed Medications Discontinued Medications Albuterol (Albuterol Sulfate Neb 2.5 Mg/3 Ml Inh) 2.5 mg INHALATION Q20M ROSE MARY Stop: 06/22/25 11:56 Last Admin: 06/22/25 11:40 Dose: 2.5 mg Documented By: Admin: 06/22/25 11:35 Dose: 2.5 mg Documented By: Admin: 06/22/25 11:28 Dose: 2.5 mg Documented By: LALITHA Albuterol (Albuterol Sulfate Neb 2.5 Mg/3 Ml Inh) 2.5 mg INHALATION Q20M ROSE MARY Stop: 06/22/25 14:51 Last Admin: 06/22/25 14:40 Dose: Not Given Documented By: SARAH Non-Admin Reason: Order Discontinued Admin: 06/22/25 14:39 Dose: Not Given Documented By: SARAH Non-Admin Reason: Order Discontinued Sodium Chloride (Normal Saline Iv) 1,000 mls @ 999 mls/hr IV CONT .Q1H1M STA Stop: 06/22/25 12:12 Last Infusion: 06/22/25 14:21 Dose: Infused Documented By: Admin: 06/22/25 11:24 Dose: 999 mls/hr Documented By: FERNANDO Sodium Chloride (Normal Saline Iv) 1,000 mls @ 999 mls/hr IV CONT .Q1H1M STA Stop: 06/22/25 14:40 Last Admin: 06/22/25 13:49 Dose: 999 mls/hr Documented By: KIMBER Levalbuterol HCl (Levalbuterol Neb 1.25 Mg/3 Ml) 1.25 mg INHALATION ONCE ONE Stop: 06/22/25 14:23 Last Admin: 06/22/25 14:31 Dose: 1.25 mg Documented By: LALITHA Methylprednisolone Sodium Succinate (Methylprednisolone Sod Succ 125 Mg Vial) 125 mg IV PUSH ONCE STA Stop: 06/22/25 11:13 Last Admin: 06/22/25 11:25 Dose: 125 mg Documented By: FERNANDO Metoprolol Tartrate (Metoprolol Tartrate 50 Mg Tab) 50 mg PO ONCE STA Stop: 06/22/25 13:45 Last Admin: 06/22/25 14:20 Dose: 50 mg Documented By: SARAH Metoprolol Tartrate (Metoprolol Tartrate Inj 5 Mg/5 Ml Vial) 5 mg IV PUSH ONCE STA Stop: 06/22/25 13:45 Last Admin: 06/22/25 13:49 Dose: 5 mg Documented By: KIMBER Metoprolol Tartrate (Metoprolol Tartrate Inj 5 Mg/5 Ml Vial) Confirm Administered Dose 5 mg .ROUTE .STK-MED ONE Stop: 06/22/25 13:46 Last Admin: 06/22/25 13:50 Dose: Not Given Documented By: KIMBER Non-Admin Reason: Duplicate Dose Metoprolol Tartrate (Metoprolol Tartrate Inj 5 Mg/5 Ml Vial) 5 mg IV PUSH ONCE ONE Stop: 06/22/25 14:25 Last Admin: 06/22/25 14:25 Dose: 5 mg Documented By: FERNANDO Interventions/Assessments IV / Saline Lock, Insert Start: 06/22/25 10:17 Freq: STAT Status: Active Protocol: Document 06/22/25 14:29 AMH (Rec: 06/22/25 14:29 AMH [id number]) IV Assessment Peripheral Access Right Wrist IV Catheter Access Initiated IV Insertion Date 06/22/25 IV Insertion Time 14:29 Catheter Gauge 18 IV Site Assessment WNL IV Care and WNL Maintenance PA: Cardiovascular Assessment Start: 06/22/25 09:54 Freq: Status: Active Protocol: Document 06/22/25 10:21 ANT (Rec: 06/22/25 10:22 ANT [id number]) Cardiovascular Assessment Cardiovascular None,Chest Pressure Symptoms Skin Description Normal Color Jugular Vein None Distention PA: Respiratory Assessment Start: 06/22/25 09:54 Freq: Status: Active Protocol: Document 06/22/25 10:21 ANT (Rec: 06/22/25 10:22 ANT [id number]) Respiratory Assessment Symptoms Cough Effort Normal Pattern Regular Depth Normal Chest Expansion Symmetrical Cough Description Non-Productive Cough Frequency Intermittent Sputum Amount None Last Vital Signs Temperature 98.2 F 06/22/25 13:42 Pulse Rate 143 H 06/22/25 14:32 Respiratory Rate 20 06/22/25 14:32 Pulse Oximetry 97 06/22/25 14:32 Blood Pressure 106/68 06/22/25 14:32 Blood Pressure Mean 80 06/22/25 14:32 Oxygen Delivery Nasal Cannula 06/22/25 10:31 Oxygen Flow Rate 3 06/22/25 10:31 Weight 81.2 kg 06/22/25 10:20 Last Result - Abnormals Only WBC 10.9 K/mm3 (4.5-10.0) H 06/22/25 11:00 RBC 4.11 M/mm3 (4.2-5.4) L 06/22/25 11:00 RDW 14.9 % (11.5-14.5) H 06/22/25 11:00 MPV 11.4 fl (7.4-10.4) H 06/22/25 11:00 Immature Gran % (Auto) 0.6 % (0-0.5) H 06/22/25 11:00 Lymph % (Auto) 18.2 % (18.3-44.2) L 06/22/25 11:00 Harrison % (Auto) 12.8 % (2.6-8.5) H 06/22/25 11:00 Harrison # (Auto) 1.4 K/mm3 (0.1-0.6) H 06/22/25 11:00 Abs Immat Gran (auto) 0.06 K/mm3 (0.00-0.031) H 06/22/25 11:00 Absolute Neuts (auto) 7.4 K/mm3 (1.3-6.7) H 06/22/25 11:00 Chloride 108 mmol/L (98-107) H 06/22/25 11:00 Anion Gap 2 mmol/L (4-12) L 06/22/25 11:00 Creatinine 1.09 mg/dL (0.7-1.0) H 06/22/25 11:00 Estimated GFR 49 (59-) L 06/22/25 11:00 Glucose 119 mg/dL (65-110) H 06/22/25 11:00 Troponin I 0.051 ng/mL (0.000-0.034) H* 06/22/25 11:00 NT-Pro-B Natriuret Pep 3630 pg/mL (19.9-100) H 06/22/25 11:00 Most Recent Suicide Severity Rating Suicide Severity Rating NO RISK INDICATED 06/22/25 10:20
--- NOTE | 2025-06-22 14:55 | WPCEDHO ---
ED Hand Off Checklist All vitals saved:yes IV Site documented:yes All med administrations documented:yes Triage Note Triage Note Pt to ED from home for complaint 06/22/25 10:20 of SOB. States she was here wednesday and was supposed to be admitted for more breathing treatments but wanted to go home. agree with triage note Allergies erythromycin base Allergy (Verified 06/20/25 08:34) Hives eye ointment irritation Penicillins Allergy (Verified 06/20/25 08:34) Hives &itching Family History (Last Reviewed 04/09/25 @ 09:53 by Ilene Busch [facility]) Sibling Family history of blood dyscrasia Family history of malignant neoplasm Family history of seizure disorder Mother Family history of malignant neoplasm Family history of lymphoma Family history of atrial fibrillation Active Medications including assessments/comments Magnesium Sulfate (Magnesium Sulf 2 Gm/Water 50ml) 2 gm in 50 mls @ 25 mls/hr IVPB ONCE ONE Stop: 06/22/25 15:39 Last Admin: 06/22/25 13:49 Dose: 25 mls/hr Documented By: KIMBER Co-signed By: JUSTIN Infusion/Titration Document 06/22/25 13:49 ELB (Rec: 06/22/25 13:49 ELB [id number]) Co-signed By Stefanie Ashley RN Intake IV Site Peripheral Access Left Antecubital Container Volume 50 Waste Amount 0 Dosing Infusion Rate 25 Increase/Decrease Started Elapsed Time Elapsed Time ( 0m minutes) Magnesium Sulfate Infusion Document 06/22/25 13:49 ELB (Rec: 06/22/25 13:49 KIMBER [id number]) Co-signed By Stefanie Ashley, extractor machine operator Action Magnesium Sulfate Initiated Infusion Action Administered/Completed Medications Discontinued Medications Albuterol (Albuterol Sulfate Neb 2.5 Mg/3 Ml Inh) 2.5 mg INHALATION Q20M ROSE MARY Stop: 06/22/25 11:56 Last Admin: 06/22/25 11:40 Dose: 2.5 mg Documented By: Admin: 06/22/25 11:35 Dose: 2.5 mg Documented By: Admin: 06/22/25 11:28 Dose: 2.5 mg Documented By: LALITHA Albuterol (Albuterol Sulfate Neb 2.5 Mg/3 Ml Inh) 2.5 mg INHALATION Q20M ROSE MARY Stop: 06/22/25 14:51 Last Admin: 06/22/25 14:40 Dose: Not Given Documented By: SARAH Non-Admin Reason: Order Discontinued Admin: 06/22/25 14:39 Dose: Not Given Documented By: SARAH Non-Admin Reason: Order Discontinued Sodium Chloride (Normal Saline Iv) 1,000 mls @ 999 mls/hr IV CONT .Q1H1M STA Stop: 06/22/25 12:12 Last Infusion: 06/22/25 14:21 Dose: Infused Documented By: Admin: 06/22/25 11:24 Dose: 999 mls/hr Documented By: FERNANDO Sodium Chloride (Normal Saline Iv) 1,000 mls @ 999 mls/hr IV CONT .Q1H1M STA Stop: 06/22/25 14:40 Last Admin: 06/22/25 13:49 Dose: 999 mls/hr Documented By: KIMBER Ipratropium Arboles (Ipratropium Br 0.02% Inh Soln 0.5 Mg/2.5 Ml Vial) 0.5 mg INHALATION Q20M ROSE MARY Stop: 06/22/25 14:51 Last Admin: 06/22/25 14:31 Dose: 0.5 mg Documented By: LALITHA Levalbuterol HCl (Levalbuterol Neb 1.25 Mg/3 Ml) 1.25 mg INHALATION ONCE ONE Stop: 06/22/25 14:23 Last Admin: 06/22/25 14:31 Dose: 1.25 mg Documented By: LALITHA Methylprednisolone Sodium Succinate (Methylprednisolone Sod Succ 125 Mg Vial) 125 mg IV PUSH ONCE STA Stop: 06/22/25 11:13 Last Admin: 06/22/25 11:25 Dose: 125 mg Documented By: FERNANDO Metoprolol Tartrate (Metoprolol Tartrate 50 Mg Tab) 50 mg PO ONCE STA Stop: 06/22/25 13:45 Last Admin: 06/22/25 14:20 Dose: 50 mg Documented By: SARAH Metoprolol Tartrate (Metoprolol Tartrate Inj 5 Mg/5 Ml Vial) 5 mg IV PUSH ONCE STA Stop: 06/22/25 13:45 Last Admin: 06/22/25 13:49 Dose: 5 mg Documented By: KIMBER Metoprolol Tartrate (Metoprolol Tartrate Inj 5 Mg/5 Ml Vial) Confirm Administered Dose [address] ONE Stop: 06/22/25 13:46 Last Admin: 06/22/25 13:50 Dose: Not Given Documented By: KIMBER Non-Admin Reason: Duplicate Dose Metoprolol Tartrate (Metoprolol Tartrate Inj 5 Mg/5 Ml Vial) 5 mg IV PUSH ONCE ONE Stop: 06/22/25 14:25 Last Admin: 06/22/25 14:25 Dose: 5 mg Documented By: FERNANDO Notes 06/22/25 14:44 (created 06/22/25 14:43) ED Hand Off by Tesha Morin ED Hand Off Checklist All vitals saved:yes IV Site documented:yes All med administrations documented:yes Triage Note Triage Note Pt to ED from home for complaint 06/22/25 10:20 of SOB. States she was here wednesday and was supposed to be admitted for more breathing treatments but wanted to go home. agree with triage note Allergies erythromycin base Allergy (Verified 06/20/25 08:34) Hives eye ointment irritation Penicillins Allergy (Verified 06/20/25 08:34) Hives &itching Family History (Last Reviewed 04/09/25 @ 09:53 by Ilene Busch [facility]) Sibling Family history of blood dyscrasia Family history of malignant neoplasm Family history of seizure disorder Mother Family history of malignant neoplasm Family history of lymphoma Family history of atrial fibrillation Active Medications including assessments/comments Magnesium Sulfate (Magnesium Sulf 2 Gm/Water 50ml) 2 gm in 50 mls @ 25 mls/hr IVPB ONCE ONE Stop: 06/22/25 15:39 Last Admin: 06/22/25 13:49 Dose: 25 mls/hr Documented By: KIMBER Co-signed By: JUSTIN Infusion/Titration Document 06/22/25 13:49 KIMBER (Rec: 06/22/25 13:49 [email or web address] [id number]) Co-signed By Stefanie Ashley RN Intake IV Site Peripheral Access Left Antecubital Container Volume 50 Waste Amount 0 Dosing Infusion Rate 25 Increase/Decrease Started Elapsed Time Elapsed Time ( 0m minutes) Magnesium Sulfate Infusion Document 06/22/25 13:49 KIMBER (Rec: 06/22/25 13:49 KIMBER [id number]) Co-signed By Stefanie Ashley RN Infusion Action Magnesium Sulfate Initiated Infusion Action Ipratropium Arboles (Ipratropium Br 0.02% Inh Soln 0.5 Mg/2.5 Ml Vial) 0.5 mg INHALATION Q20M [facility] Stop: 06/22/25 14:51 Last Admin: 06/22/25 14:31 Dose: 0.5 mg Documented By: LALITHA PARIKH Nebulizer Assessment Document 06/22/25 14:31 LALITHA (Rec: 06/22/25 14:31 LALITHA [id number]) Updraft Nebulizer Treatment Method Mask Treatment Tolerance Good Administered/Completed Medications Discontinued Medications Albuterol (Albuterol Sulfate Neb 2.5 Mg/3 Ml Inh) 2.5 mg INHALATION Q20M [facility] Stop: 06/22/25 11:56 Last Admin: 06/22/25 11:40 Dose: 2.5 mg Documented By: Admin: 06/22/25 11:35 Dose: 2.5 mg Documented By: Admin: 06/22/25 11:28 Dose: 2.5 mg Documented By: LALITHA Albuterol (Albuterol Sulfate Neb 2.5 Mg/3 Ml Inh) 2.5 mg INHALATION Q20M [facility] Stop: 06/22/25 14:51 Last Admin: 06/22/25 14:40 Dose: Not Given Documented By: SARAH Non-Admin Reason: Order Discontinued Admin: 06/22/25 14:39 Dose: Not Given Documented By: SARAH Non-Admin Reason: Order Discontinued Sodium Chloride (Normal Saline Iv) 1,000 mls @ 999 mls/hr IV CONT .Q1H1M STA Stop: 06/22/25 12:12 Last Infusion: 06/22/25 14:21 Dose: Infused Documented By: Admin: 06/22/25 11:24 Dose: 999 mls/hr Documented By: FERNANDO Sodium Chloride (Normal Saline Iv) 1,000 mls @ 999 mls/hr IV CONT .Q1H1M STA Stop: 06/22/25 14:40 Last Admin: 06/22/25 13:49 Dose: 999 mls/hr Documented By: KIMBER Levalbuterol HCl (Levalbuterol Neb 1.25 Mg/3 Ml) 1.25 mg INHALATION ONCE ONE Stop: 06/22/25 14:23 Last Admin: 06/22/25 14:31 Dose: 1.25 mg Documented By: LALITHA Methylprednisolone Sodium Succinate (Methylprednisolone Sod Succ 125 Mg Vial) 125 mg IV PUSH ONCE STA Stop: 06/22/25 11:13 Last Admin: 06/22/25 11:25 Dose: 125 mg Documented By: FERNANDO Metoprolol Tartrate (Metoprolol Tartrate 50 Mg Tab) 50 mg PO ONCE STA Stop: 06/22/25 13:45 Last Admin: 06/22/25 14:20 Dose: 50 mg Documented By: SARAH Metoprolol Tartrate (Metoprolol Tartrate Inj 5 Mg/5 Ml Vial) 5 mg IV PUSH ONCE STA Stop: 06/22/25 13:45 Last Admin: 06/22/25 13:49 Dose: 5 mg Documented By: KIMBER Metoprolol Tartrate (Metoprolol Tartrate Inj 5 Mg/5 Ml Vial) Confirm Administered Dose 5 mg .ROUTE .STK-MED ONE Stop: 06/22/25 13:46 Last Admin: 06/22/25 13:50 Dose: Not Given Documented By: KIMBER Non-Admin Reason: Duplicate Dose Metoprolol Tartrate (Metoprolol Tartrate Inj 5 Mg/5 Ml Vial) 5 mg IV PUSH ONCE ONE Stop: 06/22/25 14:25 Last Admin: 06/22/25 14:25 Dose: 5 mg Documented By: FERNANDO Interventions/Assessments IV / Saline Lock, Insert Start: 06/22/25 10:17 Freq: STAT Status: Active Protocol: Document 06/22/25 14:29 AMH (Rec: 06/22/25 14:29 AMH [id number]) IV Assessment Peripheral Access Right Wrist IV Catheter Access Initiated IV Insertion Date 06/22/25 IV Insertion Time 14:29 Catheter Gauge 18 IV Site Assessment WNL IV Care and WNL Maintenance PA: Cardiovascular Assessment Start: 06/22/25 09:54 Freq: Status: Active Protocol: Document 06/22/25 10:21 ANT (Rec: 06/22/25 10:22 ANT [id number]) Cardiovascular Assessment Cardiovascular None,Chest Pressure Symptoms Skin Description Normal Color Jugular Vein None Distention PA: Respiratory Assessment Start: 06/22/25 09:54 Freq: Status: Active Protocol: Document 06/22/25 10:21 ANT (Rec: 06/22/25 10:22 ANT [id number]) Respiratory Assessment Symptoms Cough Effort Normal Pattern Regular Depth Normal Chest Expansion Symmetrical Cough Description Non-Productive Cough Frequency Intermittent Sputum Amount None Last Vital Signs Temperature 98.2 F 06/22/25 13:42 Pulse Rate 143 H 06/22/25 14:32 Respiratory Rate 20 06/22/25 14:32 Pulse Oximetry 97 06/22/25 14:32 Blood Pressure 106/68 06/22/25 14:32 Blood Pressure Mean 80 06/22/25 14:32 Oxygen Delivery Nasal Cannula 06/22/25 10:31 Oxygen Flow Rate 3 06/22/25 10:31 Weight 81.2 kg 06/22/25 10:20 Last Result - Abnormals Only WBC 10.9 K/mm3 (4.5-10.0) H 06/22/25 11:00 RBC 4.11 M/mm3 (4.2-5.4) L 06/22/25 11:00 RDW 14.9 % (11.5-14.5) H 06/22/25 11:00 MPV 11.4 fl (7.4-10.4) H 06/22/25 11:00 Immature Gran % (Auto) 0.6 % (0-0.5) H 06/22/25 11:00 Lymph % (Auto) 18.2 % (18.3-44.2) L 06/22/25 11:00 Isabela % (Auto) 12.8 % (2.6-8.5) H 06/22/25 11:00 Isabela # (Auto) 1.4 K/mm3 (0.1-0.6) H 06/22/25 11:00 Abs Immat Gran (auto) 0.06 K/mm3 (0.00-0.031) H 06/22/25 11:00 Absolute Neuts (auto) 7.4 K/mm3 (1.3-6.7) H 06/22/25 11:00 Chloride 108 mmol/L (98-107) H 06/22/25 11:00 Anion Gap 2 mmol/L (4-12) L 06/22/25 11:00 Creatinine 1.09 mg/dL (0.7-1.0) H 06/22/25 11:00 Estimated GFR 49 (59-) L 06/22/25 11:00 Glucose 119 mg/dL (65-110) H 06/22/25 11:00 Troponin I 0.051 ng/mL (0.000-0.034) H* 06/22/25 11:00 NT-Pro-B Natriuret Pep 3630 pg/mL (19.9-100) H 06/22/25 11:00 Most Recent Suicide Severity Rating Suicide Severity Rating NO RISK INDICATED 06/22/25 10:20 Initialized on 06/22/25 14:43 - END OF NOTE Interventions/Assessments IV / Saline Lock, Insert Start: 06/22/25 10:17 Freq: STAT Status: Active Protocol: Document 06/22/25 14:29 AMH (Rec: 06/22/25 14:29 AMH [id number]) IV Assessment Peripheral Access Right Wrist IV Catheter Access Initiated IV Insertion Date 06/22/25 IV Insertion Time 14:29 Catheter Gauge 18 IV Site Assessment WNL IV Care and WNL Maintenance PA: Cardiovascular Assessment Start: 06/22/25 09:54 Freq: Status: Active Protocol: Document 06/22/25 10:21 ANT (Rec: 06/22/25 10:22 ANT [id number]) Cardiovascular Assessment Cardiovascular None,Chest Pressure Symptoms Skin Description Normal Color Jugular Vein None Distention PA: Respiratory Assessment Start: 06/22/25 09:54 Freq: Status: Active Protocol: Document 06/22/25 10:21 ANT (Rec: 06/22/25 10:22 ANT [id number]) Respiratory Assessment Symptoms Cough Effort Normal Pattern Regular Depth Normal Chest Expansion Symmetrical Cough Description Non-Productive Cough Frequency Intermittent Sputum Amount None Last Vital Signs Temperature 98.2 F 06/22/25 13:42 Pulse Rate 143 H 06/22/25 14:32 Respiratory Rate 20 06/22/25 14:32 Pulse Oximetry 97 06/22/25 14:32 Blood Pressure 106/68 06/22/25 14:32 Blood Pressure Mean 80 06/22/25 14:32 Oxygen Delivery Nasal Cannula 06/22/25 10:31 Oxygen Flow Rate 3 06/22/25 10:31 Weight 81.2 kg 06/22/25 10:20 Last Result - Abnormals Only WBC 10.9 K/mm3 (4.5-10.0) H 06/22/25 11:00 RBC 4.11 M/mm3 (4.2-5.4) L 06/22/25 11:00 RDW 14.9 % (11.5-14.5) H 06/22/25 11:00 MPV 11.4 fl (7.4-10.4) H 06/22/25 11:00 Immature Gran % (Auto) 0.6 % (0-0.5) H 06/22/25 11:00 Lymph % (Auto) 18.2 % (18.3-44.2) L 06/22/25 11:00 Isabela % (Auto) 12.8 % (2.6-8.5) H 06/22/25 11:00 Isabela # (Auto) 1.4 K/mm3 (0.1-0.6) H 06/22/25 11:00 Abs Immat Gran (auto) 0.06 K/mm3 (0.00-0.031) H 06/22/25 11:00 Absolute Neuts (auto) 7.4 K/mm3 (1.3-6.7) H 06/22/25 11:00 Chloride 108 mmol/L (98-107) H 06/22/25 11:00 Anion Gap 2 mmol/L (4-12) L 06/22/25 11:00 Creatinine 1.09 mg/dL (0.7-1.0) H 06/22/25 11:00 Estimated GFR 49 (59-) L 06/22/25 11:00 Glucose 119 mg/dL (65-110) H 06/22/25 11:00 Troponin I 0.051 ng/mL (0.000-0.034) H* 06/22/25 11:00 NT-Pro-B Natriuret Pep 3630 pg/mL (19.9-100) H 06/22/25 11:00 Most Recent Suicide Severity Rating Suicide Severity Rating NO RISK INDICATED 06/22/25 10:20
[2025-06-22 15:04] LABS: Troponin I 0.039 ng/mL (0.000-0.034)
--- NOTE | 2025-06-22 16:05 | PC.NURSE ---
Spoke with Chelsea KATZ regarding pt heart rate. Stated current heart rate in the 150's, and bp is 96/57. USER SUPPORT ANALYST to place orders
--- OUTSIDE RECORDS SUMMARY | 2025-06-22 16:26 | XMS_ITS | Encounter Summary ---
Author Organization [facility] Health Address [address] [place] [address] Care Team Providers Care Schedule Clerk Name Role Phone Unavailable Primary Care Provider Unavailabl e Prior Encounters Date Type Department Care Team Description 07/31/2019 Converted CPS Chart Documents [facility] [phone] [place] [address] <No scans attached> 07/31/2019 Converted 13x Documents [facility] [phone] [place] [address] <No scans attached> Plan of [...]
--- OUTSIDE RECORDS SUMMARY | 2025-06-22 16:26 | XMS_ITS | Clinical Summary ---
Author Organization [facility] Health Address [address] [place] [address] Care Team Providers Care Usability Architect Name Role Phone Unavailable Primary Care Provider [...]
[2025-06-22] MEDS: PERFLUTREN LIPID MICROSPHERES 1.5 ML VIAL DILUTED TO 10 ML TOTAL VOLUME IV PUSH (16:40)
[2025-06-22] MEDS: dilTIAZem 100 MG/100 ML 100 MG/100 ML BAG IV CONT (16:57)
--- NOTE | 2025-06-22 16:58 | IVDEFINITY ---
Prior to administration of IV Definity the patient was educated on the risks and benefits of the imaging enhancing agent including potential adverse side effects. The patient verbalized understanding. Allergies were verified. No exclusion criteria were identified and at least one of the following inclusion criteria were met: 1) physician request, 2) patient technically difficult to image (per the [place] [employer]ocardi[employer] guidelines of two or more segments not discernable within the apical view), or 3) questionable left ventricular function. ?
[2025-06-22] MEDS: LOSARTAN POTASSIUM 25 MG TABLET PO (16:59)
[2025-06-22] MEDS: RIVAROXABAN 20 MG TABLET PO (16:59)
[2025-06-22] MEDS: DULoxetine HCL 60 MG CAPSULE.DR PO (16:59)
[2025-06-22] MEDS: GABAPENTIN 400 MG CAPSULE 800 MG PO ×2 (16:59→21:33)
[2025-06-22] MEDS: FUROSEMIDE INJ 40 MG/4 ML VIAL 20 MG IV PUSH (17:02)
[2025-06-22] MEDS: cefTRIAXone 1 GM in SODIUM CHLORIDE 0.9% IV 50 ML 100 ML IVPB (17:06)
[2025-06-22] MEDS: ACETAMINOPHEN 325 MG TABLET 650 MG PO (17:09)
[2025-06-22 17:29] LABS: Troponin I 0.031 ng/mL (0.000-0.034)
[2025-06-22] MEDS: DOXYCYCLINE IV 100 MG in SODIUM CHLORIDE 0.9% IV 100 ML IVPB (17:49)
[2025-06-22] MEDS: SIMVASTATIN 20 MG TABLET PO (21:33)
[2025-06-22] MEDS: guaiFENesin 12 HR 600 MG TABCR PO (21:33)
[2025-06-23] VITALS (37 sets, daily range): BP systolic 113–148; BP diastolic 46–76; PULSE 66–127; RESP 16–24; TEMP 36.3–37; O2SAT 84–97
[2025-06-23] MEDS: IPRATROPIUM BR 0.02% INH SOLN 0.5 MG/2.5 ML VIAL INHALATION ×4 (02:41→20:05)
[2025-06-23] MEDS: dilTIAZem 100 MG/100 ML 100 MG/100 ML BAG 10 MG IV CONT (03:00)
[2025-06-23] MEDS: DOXYCYCLINE IV 100 MG in SODIUM CHLORIDE 0.9% IV 100 ML IVPB ×2 (03:03→16:30)
[2025-06-23 04:42] LABS: Hematocrit 38.9 % (37.0-47.0); Hemoglobin 12.1 g/dL (12.0-15.0); Immature Granulocyte Percent A 0.6 % (0-0.5); Lymphocytes Absolute Auto 1.02 K/mm3 (0.9-3.2); Mean Corpuscular HGB Conc 31.1 g/dl (32-36); Mean Corpuscular Hemoglobin 29.8 pg (26-34); Mean Corpuscular Volume 95.8 fl (80-100); Nucleated Red Blood Cells Absolute Auto 0.000 K/mm3 (0.0-0.012); Nucleated Red Blood Cells Perc 0.0 % (0.0-0.2); Platelet Count Result 211 k/mm3 (150-375); Red Blood Count 4.06 M/mm3 (4.2-5.4); White Blood Count 16.2 K/mm3 (4.5-10.0)
--- NOTE | 2025-06-23 05:57 | ECG_ITS ---
Test Date: 2025-06-23 06:13:46 Measurements Intervals [place] Rate: 77 P: 0 [place]: 0 QRS: -14 QRSD: 105 T: 48 QT: 402 QTc: 455 Interpretive Statements SINUS RHYTHM WITH FREQUENT ATRIAL PREMATURE COMPLEXES BASELINE ARTIFACT- I, II, III, AVR, AVL, AVF ABNORMAL ECG Compared to ECG 06/22/2025 13:40:47 ATRIAL FIBRILLATION NO LONGER PRESENT POSSIBLE ISCHEMIA NO LONGER PRESENT Electronically Signed On 06-23-2025 08:43:32 COACH TOUR DRIVER by Fransico Ortega D.O.
[2025-06-23] MEDS: FUROSEMIDE INJ 40 MG/4 ML VIAL 20 MG IV PUSH ×2 (06:10→09:53)
[2025-06-23] MEDS: BUDESONIDE RESPULE NEB 0.5 MG/2 ML AMP INHALATION (07:31)
--- NOTE | 2025-06-23 07:46 | PM.CNCAR ---
Assessment and Plan Assessment and plan (1) Atrial fibrillation with rapid ventricular response: Code(s): I48.91 - Unspecified atrial fibrillation Status: Acute (2) Acute exacerbation of CHF (congestive heart failure): Qualifiers: Heart failure type: diastolic Qualified Code(s): I50.33 - Acute on chronic diastolic (congestive) heart failure Code(s): I50.9 - Heart failure, unspecified Status: Acute (3) HLD (hyperlipidemia): Code(s): E78.5 - Hyperlipidemia, unspecified Status: Acute (4) Hypertension: Qualifiers: Hypertension type: primary hypertension Qualified Code(s): I10 - Essential (primary) hypertension Code(s): I10 - Essential (primary) hypertension Status: Chronic Plan -AFib with RVR -troponin elevation -acute diastolic heart failure exacerbation. -acute COPD exacerbation -history of hypertension -history of hyperlipidemia -regards to AFib with RVR, currently in sinus tachycardia with PACs. On diltiazem drip 10 mg an hour. Start diltiazem 60 mg q.6 hours with holding parameters and wean off the diltiazem drip. Continue Xarelto. Echo done during this admission normal ejection fraction. -regards to troponin elevation likely secondary to demand ischemia from AFib with RVR. Denies chest pain.. Echo shows no wall motion abnormalities. -a gastro acute diastolic heart failure exacerbation, elevated brain atretic peptide. Administer Lasix IV x1 today. -regards to acute COPD exacerbation, continue p.o. steroids and nebulizers. Also continue antibiotics. Regards to hypertension, continue losartan. We started patient on diltiazem p.o.. -in regards to hyperlipidemia continue statin History of Present Illness History of Present Illness Consult date/time: 06/23/25 07:46 Requesting physician: Chelsea Downey APRN Consult reason: atrial fibrillation Reason For Visit: SOB Narrative: This 74-year-old female with history of COPD, diabetes, hypertension, hyperlipidemia, anxiety and depression presents to the hospital with 1 week history of shortness of breath. Associated with cough. Denied lower extremity edema. Consult was called because of atrial fibrillation. Currently in sinus tachycardia with PACs on diltiazem drip 10 mg /hour. Denies chest pain Creatinine 1, brain atretic peptide at 3600 Chest x-ray reviewed on as miss of mild vascular congestion. Initial EKG shows sinus rhythm with PACs but repeat EKG shows AFib with RVR with ST depressions. Echo done during this admission: 1. Left ventricular systolic function is hyperdynamic, estimated at >70. 2. There is mildly increased left ventricular wall thickness. 3. The left ventricular diastolic function is abnormal. 4. Left atrial chamber dimension is mildly enlarged. 5. There is small pericardial effusion. 6. atrial fibrillation with RVR. Review of Systems Review of Systems: All systems reviewed & are unremarkable except as noted in HPI and below Constitutional: Comments: Tired Eyes: Comments: No discharge ENT: Comments: No epistaxis Cardiovascular: Comments: Admits to dyspnea on exertion, denies edema Respiratory: Comments: Cough and dyspnea Gastrointestinal: Comments: Denies abdominal pain Genitourinary: Comments: No dysuria Musculoskeletal: Comments: And joint swelling Integumentary/Breasts: Comments: No rash Neurologic: Comments: No headache Psychiatric: Comments: No depression Endocrine: Comments: No polyuria Hematologic/Lymphatic: Comments: No bleeding Allergic/Immunologic: Comments: No e hives PMFSH Past Medical History Medical History Mild pulmonary hypertension Estimated PASP of 46 mmHg on echo in 10/2022. Diastolic dysfunction Echocardiogram on 10/23/2022: normal LV size and function, estimated EF of 55 to 60%, diastolic dysfunction, moderate left atrial enlargement, and mild pulmonary hypertension. Hyperlipidemia Type 2 diabetes mellitus Diet-controlled, recent A1c was 5.9% 03/2025. Atrial fibrillation Frequent urinary tract infections Chronic pain syndrome Vitamin D deficiency Normocytic anemia Nicotine use Depression with anxiety Kidney stones Shingles Arthritis Gastroesophageal reflux disease Hypertension Chronic obstructive pulmonary disease Sinus congestion Surgical History Surgical History History of fusion of cervical spine C4 through C6. History of lithotripsy History of hernia repair History of appendectomy Family History Family History Sibling Family history of blood dyscrasia Family history of malignant neoplasm Family history of seizure disorder Mother Family history of malignant neoplasm, Onset Age: 85 Family history of lymphoma, Onset Age: 85 Family history of atrial fibrillation, Onset Age: 85 Social History Social History Social History: Surrogate medical decision maker: Usha Ashley, granddaughter. Code status: Full code. Years smoked: 7 Smoking status: Former smoker Tobacco type: cigarettes Second hand tobacco smoke exposure: Yes Alcohol intake: never Substance use: current Substance use type: painkillers Other substance usage details: for chronic pain Lack of Transportation: No Lack of Food: Never True Current Housing: I Have Housing Concerned About Future Housing: No Difficulty Paying Gas/Electric Bills: No Difficulty Paying for Meds: No Currently Unemployed: No Education: High School Diploma/GED Difficulty w/ Childcare or Family Care: No Living arrangements: alone Spiritual care concerns: No Agree to blood products: Yes Meds Home Medications and Allergies Home Medications ?Medication ?Instructions ?Recorded ?Confirmed ?Type duloxetine 60 mg capsule,delayed 60 mg PO BID 12/26/19 06/22/25 History release (Cymbalta) risperidone 1 mg tablet 1 mg PO TID 10/22/22 06/22/25 History simvastatin 20 mg tablet See Rx Instructions .Route 10/11/24 06/22/25 Rx .COMPLEX #90 tabs cholecalciferol (vitamin D3) 50 See Rx Instructions .Route 11/24/24 06/22/25 Rx mcg (2,000 unit) capsule .COMPLEX #90 caps rivaroxaban 20 mg PO DAILY 02/22/25 06/22/25 History gabapentin 800 mg tablet See Rx Instructions .Route 03/30/25 06/22/25 Rx .COMPLEX #360 tabs metoprolol tartrate 50 mg tablet 25 mg PO BID 03/30/25 06/22/25 History ipratropium 0.5 mg-albuterol 3 mg 3 ml inhalation Q6H PRN shortness 05/03/25 06/22/25 Rx (2.5 mg base)/3 mL nebulization of breath or wheezing #360 mL soln benzonatate 100 mg capsule 100 mg PO TID PRN Cough #90 caps 05/09/25 06/22/25 Rx prednisone 20 mg tablet 40 mg (2 x 20 mg) PO DAILY 4 days 06/17/25 06/22/25 Rx #8 tabs budesonide 0.5 mg/2 mL suspension 0.5 mg (2 mL) inhalation DAILY #60 06/20/25 06/22/25 Rx for nebulization mL losartan 25 mg tablet 25 mg PO BID 06/22/25 06/22/25 History hydrocodone 5 mg-acetaminophen 325 1 tablet PO Q8H PRN pain 06/23/25 06/23/25 History mg tablet Allergies Allergy/AdvReac Type Severity Reaction Status Date / Time erythromycin base Allergy Hives Verified 06/22/25 15:29 Penicillins Allergy Hives Verified 06/22/25 15:29 Vital Signs Vital Signs - 24 hr 06/22/25 10:04 06/22/25 10:31 06/22/25 11:28 Temperature 36.5 C Pulse Rate 81 89 Respiratory Rate 22 H 20 Blood Pressure 110/58 L Pulse Oximetry 86 L 93 Oxygen Delivery Room Air Nasal Cannula Oxygen Flow Rate 3 06/22/25 11:36 06/22/25 11:50 06/22/25 13:42 Temperature 36.8 C Pulse Rate 76 82 154 H Respiratory Rate 18 18 19 Blood Pressure 145/103 H Pulse Oximetry 89 L Oxygen Delivery Oxygen Flow Rate 06/22/25 13:49 06/22/25 14:00 06/22/25 14:20 Temperature Pulse Rate 170 H 152 H 147 H Respiratory Rate 17 Blood Pressure 159/120 H Pulse Oximetry 92 Oxygen Delivery Oxygen Flow Rate 06/22/25 14:21 06/22/25 14:25 06/22/25 14:32 Temperature Pulse Rate 160 H 170 H 143 H Respiratory Rate 25 H 20 Blood Pressure 122/73 106/68 Pulse Oximetry 93 97 Oxygen Delivery Oxygen Flow Rate 06/22/25 14:32 06/22/25 15:21 06/22/25 15:45 Temperature 36.7 C Pulse Rate 147 H 155 H 146 H Respiratory Rate 20 26 H Blood Pressure 157/53 H Pulse Oximetry 98 Oxygen Delivery Oxygen Flow Rate 06/22/25 16:00 06/22/25 16:00 06/22/25 16:00 Temperature Pulse Rate 150 H Respiratory Rate Blood Pressure 96/57 L Pulse Oximetry 92 Oxygen Delivery Nasal Cannula Oxygen Flow Rate 3 06/22/25 16:57 06/22/25 18:00 06/22/25 18:38 Temperature Pulse Rate 152 H 128 H 126 H Respiratory Rate Blood Pressure 136/61 120/79 Pulse Oximetry Oxygen Delivery Oxygen Flow Rate 06/22/25 20:00 06/22/25 20:00 06/22/25 20:00 Temperature 36.6 C Pulse Rate 99 99 95 Respiratory Rate 20 Blood Pressure 114/57 L 114/57 L Pulse Oximetry 90 Oxygen Delivery Oxygen Flow Rate 06/22/25 20:28 06/22/25 20:34 06/22/25 20:36 Temperature Pulse Rate 100 93 Respiratory Rate 18 18 Blood Pressure Pulse Oximetry 93 Oxygen Delivery High Flow Nasal Cannula Oxygen Flow Rate 4 06/22/25 21:17 06/22/25 22:00 06/22/25 22:00 Temperature Pulse Rate 99 92 92 Respiratory Rate 20 Blood Pressure 113/59 L Pulse Oximetry 90 Oxygen Delivery Nasal Cannula Oxygen Flow Rate 4 06/22/25 22:18 06/23/25 00:00 06/23/25 00:00 Temperature 36.6 C Pulse Rate 92 92 92 Respiratory Rate 20 Blood Pressure 113/59 L 117/60 117/60 Pulse Oximetry 93 Oxygen Delivery Oxygen Flow Rate 06/23/25 00:00 06/23/25 00:30 06/23/25 01:05 Temperature Pulse Rate 94 92 66 Respiratory Rate 20 Blood Pressure Pulse Oximetry 93 Oxygen Delivery Nasal Cannula Oxygen Flow Rate 4 06/23/25 01:54 06/23/25 01:58 06/23/25 01:58 Temperature Pulse Rate 72 72 72 Respiratory Rate Blood Pressure 113/46 L 113/46 L Pulse Oximetry Oxygen Delivery Oxygen Flow Rate 06/23/25 02:43 06/23/25 02:54 06/23/25 03:00 Temperature Pulse Rate 69 68 84 Respiratory Rate 18 18 Blood Pressure 135/60 Pulse Oximetry Oxygen Delivery Oxygen Flow Rate 06/23/25 03:00 06/23/25 03:08 06/23/25 03:09 Temperature 36.6 C Pulse Rate 84 84 84 Respiratory Rate 16 16 Blood Pressure 135/60 135/60 Pulse Oximetry 94 94 Oxygen Delivery Nasal Cannula Oxygen Flow Rate 4 06/23/25 03:45 06/23/25 04:00 06/23/25 06:00 Temperature Pulse Rate 79 70 83 Respiratory Rate Blood Pressure 135/60 Pulse Oximetry Oxygen Delivery Oxygen Flow Rate 06/23/25 06:00 06/23/25 06:00 06/23/25 07:33 Temperature Pulse Rate 83 83 96 Respiratory Rate 22 H Blood Pressure 135/49 L 135/49 L Pulse Oximetry 91 Oxygen Delivery Oxygen Flow Rate 06/23/25 07:36 06/23/25 07:40 Temperature 37.0 C Pulse Rate 97 Respiratory Rate 20 Blood Pressure 130/69 Pulse Oximetry 84 L 90 Oxygen Delivery High Flow Therapy with Na Oxygen Flow Rate 4 Exam Narrative: Not in distress Const: Other: Not in distress. HENMT: Other: No evidence of bleeding Eyes: Other: No icterus Neck: Other: Supple Chest: Other: Symmetric lung expansion Resp: Other: Decreased air entry bilaterally Cardio: Other: AFib with RVR GI: Other: No distension Skin: Other: No rash Neuro: Other: Alert oriented x3. Moving all extremities Extrem: Other: No edema Psych: Other: Normal behavior Results Labs and Meds 06/23/25 04:23 06/22/25 11:00 Lab results: Cardiac Enzymes 06/22/25 06/22/25 06/22/25 Range/Units 11:00 14:29 16:48 AST 18 (14-36) U/L Troponin I 0.051 H* 0.039 H* D 0.031 D (0.000-0.034) ng/mL CBC 06/22/25 06/23/25 Range/Units 11:00 04:23 WBC 10.9 H 16.2 H (4.5-10.0) K/mm3 RBC 4.11 L 4.06 L (4.2-5.4) M/mm3 Hgb 12.1 12.1 (12.0-15.0) g/dL Hct 37.2 38.9 (37.0-47.0) % Plt Count 217 211 (150-375) k/mm3 Lymph # (Auto) 1.98 1.02 (0.9-3.2) K/mm3 Cochran # (Auto) 1.4 H 1.2 H (0.1-0.6) K/mm3 Eos # (Auto) 0.1 0.0 (0-0.3) K/mm3 Baso # (Auto) 0.1 0.0 (0.0-0.1) K/mm3 Comprehensive Metabolic Panel 06/22/25 Range/Units 11:00 Sodium 139 (137-145) mmol/L Potassium 3.4 (3.4-5.0) mmol/L Chloride 108 H (98-107) mmol/L Carbon Dioxide 29 (22-30) mmol/L BUN 16 (7-17) mg/dL Creatinine 1.09 H (0.7-1.0) mg/dL Glucose 119 H (65-110) mg/dL Calcium 9.5 (8.4-10.2) mg/dL AST 18 (14-36) U/L ALT 13 (6-35) U/L Alkaline Phosphatase 60 (38-126) U/L Total Protein 6.3 (6.3-8.2) g/dL Albumin 3.5 (3.5-5.1) g/dL Intake and Output 06/22/25 06/22/25 06/23/25 15:59 23:59 07:59 Intake Total 1000 1485.1 377.0 Output Total 0 500 Balance 1000 1485.1 -123.0 Intake: IV 1000 1245.1 177.0 Sodium Chloride 0.9% IV 1,000 1000 1000 ml @ 999 mls/hr IV CONT .Q1H1M [facility] Rx#:[id number] dilTIAZem 100 MG/100 ML 100 mg 45.1 77.0 In 100 ml @ 10 MG/HR 10 mls/hr IV CONT .Q10H [facility] Rx#:[id number] Doxycycline IV 100 mg In Sodium 100 100 Chloride 0.9% IV 100 ml @ 100 mls/hr IVPB Q12H [facility] Rx#: [id number] Magnesium Sulf 2 gm/Water 50Ml 50 2 gm In 50 ml @ 25 mls/hr IVPB ONCE ONE Rx#:[id number] cefTRIAXone 1 gm In Sodium 50 Chloride 0.9% IV 50 ml @ 100 mls/hr IVPB ONCE ONE Rx#: [id number] Oral 240 200 Output: Urine 500 Catheter Urine 0 External/Condom 0 Other: # Unmeasured Voids 1 # Incontinent Voids 1 Number of Bowel Movements Today 0 0 Patient Weight 06/23/25 23:59 Weight 84.1 kg
[2025-06-23] MEDS: BENZONATATE 100 MG CAPSULE PO ×2 (08:37→16:19)
[2025-06-23] MEDS: HYDROcodone/acetaminophen (*CRX) 5-325 MG TABLET 1 TAB PO ×2 (08:37→16:19)
[2025-06-23] MEDS: CHOLECALCIFEROL (VITAMIN D3) 25 MCG (1,000 UNITS) TABLET 50 MCG PO (08:38)
[2025-06-23] MEDS: LOSARTAN POTASSIUM 25 MG TABLET PO ×2 (08:39→16:19)
[2025-06-23] MEDS: GABAPENTIN 400 MG CAPSULE 800 MG PO ×4 (08:39→21:39)
[2025-06-23] MEDS: DULoxetine HCL 60 MG CAPSULE.DR PO ×2 (08:39→16:18)
[2025-06-23] MEDS: guaiFENesin 12 HR 600 MG TABCR PO ×2 (08:39→21:39)
[2025-06-23 10:30] LABS: Anion Gap 3 mmol/L (4-12); Blood Urea Nitrogen 24 mg/dL (7-17); Calcium 9.0 mg/dL (8.4-10.2); Carbon Dioxide 28 mmol/L (22-30); Chloride 110 mmol/L (98-107); Estimated CRCL calculation 43 ml/min; Estimated Glomerular Filt Rate 53; Glucose 154 mg/dL (65-110); Potassium 3.3 mmol/L (3.4-5.0); Sodium 141 mmol/L (137-145)
--- NOTE | 2025-06-23 14:11 | PM.IMPN2 ---
Assessment and Plan Assessment and Plan (1) COPD (chronic obstructive pulmonary disease): Qualifiers: COPD type: unspecified COPD Qualified Code(s): J44.9 - Chronic obstructive pulmonary disease, unspecified Code(s): J44.9 - Chronic obstructive pulmonary disease, unspecified Status: Chronic Assessment and Plan: New shortness of breath, chronic dry cough that initially improved with nebulizer in the ED on 06 17. However has been progressively more short of breath since then. Admitted on 06/22. Initial evaluation in the ED showed diffuse expiratory wheezing, new O2 requirement, and tachypnea. Modestly improved with nebulizers. - continue levalbuterol/HR vent scheduled - prednisone 40 mg daily x5 days, given Solu-Medrol in the ED initially - start ceftriaxone and doxycycline on 06/22, allergy to erythromycin - Mucinex yudelka - continue supplemental O2 to maintain O2 sat greater than 92%, currently requiring 3L NC. No baseline requirement. (2) Atrial fibrillation with rapid ventricular response: Code(s): I48.91 - Unspecified atrial fibrillation Status: Acute Assessment and Plan: Patient arrived in NSR. Post multiple breathing treatments she developed AFib RVR, has history of AFib. Minimal response with metoprolol 5 mg IV x2. Given home metoprolol dose orally. Remains in the 120s, intermittently in the 150s. If no improvement with third dose of IV metoprolol, will transition to IV diltiazem. - admission to IMU - telemetry monitoring - IV metoprolol, if no improvement then transition to IV diltiazem with gtt and cardiology consult. hold home metoprolol. >> no improvement, orders placed - TSH reviewed, 1.44 on 02/23/2025 - continue Xarelto (3) Acute exacerbation of CHF (congestive heart failure): Qualifiers: Heart failure type: diastolic Qualified Code(s): I50.33 - Acute on chronic diastolic (congestive) heart failure Code(s): I50.9 - Heart failure, unspecified Status: Acute Assessment and Plan: CXR concerning for small bilateral pleural effusions with vascular changes which may represent mild vascular congestion or atypical inflammatory/infectious process. Denies any new peripheral edema or weight gain, does report she is at 3 lb of weight gain over the past few months however does not feel it is fluid related. Last echo on file in 2022 which showed EF of 55-60%, diastolic dysfunction, LV wall thickness increased, LA chamber moderately enlarged, mild pulmonary hypertension, trivial pericardial effusion. - update echo - monitor I&Os daily weights - Lasix 20 mg IV x2, further diuresis dependent on response to IV diuretic. Was given 2L in the ED. (4) Elevated troponin: Code(s): R79.89 - Other specified abnormal findings of blood chemistry Status: Acute Assessment and Plan: Likely type 2 given new hypoxia. Was 86% on room air due to COPD exacerbation. Troponin currently downtrending. No reports of chest pain. Does have some chest tightness with exertion, however shortness of breath significantly worsens with exertion as well. Now additionally in AFib RVR secondary to nebulizer treatments. EKG reviewed, no significant ST depressions or elevations. PACs and PVCs now present when compared to previous. - trend troponin - SL nitro p.r.n. (5) Hypertension: Qualifiers: Hypertension type: primary hypertension Qualified Code(s): I10 - Essential (primary) hypertension Code(s): I10 - Essential (primary) hypertension Status: Chronic Assessment and Plan: - chronic, currently 157/53, stable. - continue home medications: Losartan 25 mg b.i.d.. Holding metoprolol, see above. 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 Last A1c 5.9% on 03/27/2025. - hypoglycemia protocol p.r.n. Plan Acute hypoxemic respiratory failure Pneumonia vs Pulm edema CXR showed bilateral infiltrates CT Chest ordered Lasix, Levaquin, Flagyl and Vancomycin titrate oxygen monitor Diet: Heart healthy GI Prophylaxis: N/a DVT Prophylaxis: Xarelto IV fluids: 2L bolus Lines/Tubes: pIV Code Status: Full code Subjective Date/time seen: 06/23/25 14:11 Interval history: Patient having worsening respiratory fecompensation CT Chest, Abx changed to Levaquin, flagyl and Vancomycin Review of Systems Review of Systems: All systems reviewed & are unremarkable except as noted in HPI and below Exam Const: General: comfortable and no acute distress Other: , female, elderly, nontoxic appearance HENMT: Face/Nose/Sinus: Normal nares present Mouth: Yes moist mucous membranes Eyes: General: appearance normal, both eyes and all related structures Sclera: sclerae normal Pupils: Equal, round and reactive pupils present EOM: EOMs intact bilaterally Resp: Other: Faint expiratory wheeze, mild tachypnea (ambulated to the restroom just prior to exam). No crackles appreciated. Cardio: Rate: tachycardic Rhythm: abnormal rhythm (Consistent with AFib) Other: S1-S2 present without murmur, rub, ectopy GI: Other: Abdomen soft, nondistended, nontender. Normoactive bowel sounds in all quadrants. Skin: General skin exam: normal color and no rashes or lesions noted Wounds: no wounds Neuro: Cranial nerves: Yes Equal, round and reactive pupils present Speech: normal speech Motor exam (neuro): 5/5 motor strength present throughout Sensory Exam: normal sensation Other: A&O x4 Extrem: Other: Trace edema to the bilateral ankles, symmetric and nonpitting Psych: Mental Status: mental status grossly normal Affect: normal affect Other: Good insight and judgment. Objective Data Vital Signs Vital Signs: Vital Signs - 24 hr 06/22/25 14:20 06/22/25 14:21 06/22/25 14:25 Temperature Pulse Rate 147 H 160 H 170 H Respiratory Rate 25 H Blood Pressure 122/73 Pulse Oximetry 93 Oxygen Delivery Oxygen Flow Rate Fraction of Inspired Oxygen 06/22/25 14:32 06/22/25 14:32 06/22/25 15:21 Temperature 98.1 F Pulse Rate 143 H 147 H 155 H Respiratory Rate 20 20 26 H Blood Pressure 106/68 157/53 H Pulse Oximetry 97 98 Oxygen Delivery Oxygen Flow Rate Fraction of Inspired Oxygen 06/22/25 15:45 06/22/25 16:00 06/22/25 16:00 Temperature Pulse Rate 146 H Respiratory Rate Blood Pressure 96/57 L Pulse Oximetry 92 Oxygen Delivery Nasal Cannula Oxygen Flow Rate 3 Fraction of Inspired Oxygen 06/22/25 16:00 06/22/25 16:57 06/22/25 18:00 Temperature Pulse Rate 150 H 152 H 128 H Respiratory Rate Blood Pressure 136/61 Pulse Oximetry Oxygen Delivery Oxygen Flow Rate Fraction of Inspired Oxygen 06/22/25 18:38 06/22/25 20:00 06/22/25 20:00 Temperature 97.8 F Pulse Rate 126 H 99 99 Respiratory Rate 20 Blood Pressure 120/79 114/57 L 114/57 L Pulse Oximetry 90 Oxygen Delivery Oxygen Flow Rate Fraction of Inspired Oxygen 06/22/25 20:00 06/22/25 20:28 06/22/25 20:34 Temperature Pulse Rate 95 100 Respiratory Rate 18 Blood Pressure Pulse Oximetry 93 Oxygen Delivery High Flow Nasal Cannula Oxygen Flow Rate 4 Fraction of Inspired Oxygen 06/22/25 20:36 06/22/25 21:17 06/22/25 22:00 Temperature Pulse Rate 93 99 92 Respiratory Rate 18 20 Blood Pressure 113/59 L Pulse Oximetry 90 Oxygen Delivery Nasal Cannula Oxygen Flow Rate 4 Fraction of Inspired Oxygen 06/22/25 22:00 06/22/25 22:18 06/23/25 00:00 Temperature 98 F Pulse Rate 92 92 92 Respiratory Rate 20 Blood Pressure 113/59 L 117/60 Pulse Oximetry 93 Oxygen Delivery Oxygen Flow Rate Fraction of Inspired Oxygen 06/23/25 00:00 06/23/25 00:00 06/23/25 00:30 Temperature Pulse Rate 92 94 92 Respiratory Rate 20 Blood Pressure 117/60 Pulse Oximetry 93 Oxygen Delivery Nasal Cannula Oxygen Flow Rate 4 Fraction of Inspired Oxygen 06/23/25 01:05 06/23/25 01:54 06/23/25 01:58 Temperature Pulse Rate 66 72 72 Respiratory Rate Blood Pressure 113/46 L Pulse Oximetry Oxygen Delivery Oxygen Flow Rate Fraction of Inspired Oxygen 06/23/25 01:58 06/23/25 02:43 06/23/25 02:54 Temperature Pulse Rate 72 69 68 Respiratory Rate 18 18 Blood Pressure 113/46 L Pulse Oximetry Oxygen Delivery Oxygen Flow Rate Fraction of Inspired Oxygen 06/23/25 03:00 06/23/25 03:00 06/23/25 03:08 Temperature Pulse Rate 84 84 84 Respiratory Rate 16 Blood Pressure 135/60 135/60 Pulse Oximetry 94 Oxygen Delivery Nasal Cannula Oxygen Flow Rate 4 Fraction of Inspired Oxygen 06/23/25 03:09 06/23/25 03:45 06/23/25 04:00 Temperature 98 F Pulse Rate 84 79 70 Respiratory Rate 16 Blood Pressure 135/60 135/60 Pulse Oximetry 94 Oxygen Delivery Oxygen Flow Rate Fraction of Inspired Oxygen 06/23/25 06:00 06/23/25 06:00 06/23/25 06:00 Temperature Pulse Rate 83 83 83 Respiratory Rate Blood Pressure 135/49 L 135/49 L Pulse Oximetry 91 Oxygen Delivery Oxygen Flow Rate Fraction of Inspired Oxygen 06/23/25 07:33 06/23/25 07:36 06/23/25 07:40 Temperature 98.6 F Pulse Rate 96 97 Respiratory Rate 22 H 20 Blood Pressure 130/69 Pulse Oximetry 84 L 90 Oxygen Delivery High Flow Therapy with Na Oxygen Flow Rate 4 Fraction of Inspired Oxygen 06/23/25 07:48 06/23/25 08:00 06/23/25 08:00 Temperature Pulse Rate 98 Respiratory Rate Blood Pressure 148/76 H Pulse Oximetry 92 90 Oxygen Delivery High Flow Therapy with Na Nasal Cannula Oxygen Flow Rate 5 6 Fraction of Inspired Oxygen 06/23/25 08:00 06/23/25 09:58 06/23/25 10:00 Temperature Pulse Rate 105 H 103 H 103 H Respiratory Rate Blood Pressure 128/59 L 128/59 L Pulse Oximetry 92 Oxygen Delivery Oxygen Flow Rate Fraction of Inspired Oxygen 06/23/25 10:00 06/23/25 11:26 06/23/25 11:35 Temperature 98.3 F Pulse Rate 93 92 101 H Respiratory Rate 22 H Blood Pressure 122/65 122/65 Pulse Oximetry 90 Oxygen Delivery Oxygen Flow Rate Fraction of Inspired Oxygen 06/23/25 12:00 06/23/25 12:00 06/23/25 12:00 Temperature Pulse Rate 101 H 88 Respiratory Rate Blood Pressure 122/65 Pulse Oximetry 90 Oxygen Delivery Nasal Cannula Oxygen Flow Rate 10 Fraction of Inspired Oxygen 06/23/25 13:10 06/23/25 13:15 06/23/25 13:15 Temperature Pulse Rate 98 110 H Respiratory Rate 22 H Blood Pressure 148/54 H Pulse Oximetry 94 Oxygen Delivery High Flow Therapy with Na Oxygen Flow Rate 50 Fraction of Inspired Oxygen 70 06/23/25 13:20 06/23/25 13:21 06/23/25 14:00 Temperature Pulse Rate 98 Respiratory Rate 22 H Blood Pressure Pulse Oximetry 95 95 Oxygen Delivery High Flow Therapy with Na High Flow Therapy with Na Oxygen Flow Rate 50 45 Fraction of Inspired Oxygen 70 80 Intake/Output Intake/Output: Intake & Output 06/20/25 06/21/25 06/22/25 06/23/25 23:59 23:59 23:59 23:59 Intake Total 2485.1 539.9 Output Total 0 1100 Balance 2485.1 -560.1 Meds/Results Medications: Active Medications Generic Name Dose Route Start Last Admin Trade Name Freq PRN Reason Stop Dose Admin Acetaminophen 650 mg 06/22/25 14:49 06/22/25 17:09 Acetaminophen 325 Mg Tablet PO 650 mg Q4H PRN Administration Mild Pain (1-3) or Fever Hydrocodone Bitart/Acetaminophen 1 tab 06/23/25 08:08 06/23/25 08:37 Hydrocodone/Acetaminophen (*Crx) 5-325 Mg Tablet PO 1 tab Q8H PRN Administration Pain Benzonatate 100 mg 06/22/25 16:14 06/23/25 08:37 Benzonatate 100 Mg Capsule PO 100 mg TID PRN Administration Cough Budesonide 0.5 mg 06/23/25 08:00 06/23/25 07:31 Budesonide Respule Neb 0.5 Mg/2 Ml Amp INHALATION 0.5 mg DAILYRT YUDELKA Administration Dextrose 12.5 gm 06/22/25 15:39 Dextrose 50% 25 Gm/50 Ml Syringe IV PUSH PRN PRN Hypoglycemia Protocol Diltiazem HCl 60 mg 06/23/25 15:00 Diltiazem Hcl 60 Mg Tablet PO Q6H YUDELKA Duloxetine HCl 60 mg 06/22/25 17:00 06/23/25 08:39 Duloxetine Hcl 60 Mg Capsule.Dr PO 60 mg BID YUDELKA Administration Furosemide 40 mg 06/23/25 14:10 Furosemide Inj 40 Mg/4 Ml Vial IV PUSH BID YUDELKA Gabapentin 800 mg 06/22/25 17:00 06/23/25 12:25 Gabapentin 400 Mg Capsule PO 800 mg QID YUDELKA Administration Glucagon 1 mg 06/22/25 15:39 Glucagon For Inj 1 Mg Vial IM PRN PRN Hypoglycemia Protocol Glucose 15 gm 06/22/25 15:39 Glucose Oral Gel 15 Gm Of Glucse In 37.5 Gm Tube PO PRN PRN Hypoglycemia Protocol Guaifenesin 600 mg 06/22/25 21:00 06/23/25 08:39 Guaifenesin 12 Hr 600 Mg Tabcr PO 600 mg Q12HR YUDELKA Administration Ceftriaxone Sodium 1 gm/ 50 mls @ 100 mls/hr 06/23/25 17:00 Sodium Chloride IVPB Q24H YUDELKA Dextrose 1,000 mls @ 100 mls/hr 06/22/25 15:39 Dextrose 5% 1,000 Ml IVPB PRN PRN Hypoglycemia Protocol Doxycycline Hyclate 100 mg/ 100 mls @ 100 mls/hr 06/22/25 16:00 06/23/25 04:03 Sodium Chloride IVPB 06/27/25 04:59 Infused Q12H YUDELKA Infusion Levofloxacin/Dextrose 750 mg in 150 mls @ 100 mls/hr 06/23/25 14:15 Levaquin 750 Mg/D5w 150 Ml IVPB Q24H YUDELKA Metronidazole 500 mg in 100 mls @ 100 mls/hr 06/23/25 14:15 Flagyl 500 Mg/Iso Soln 100 Ml IVPB Q8H YUDELKA Ipratropium [place] 0.5 mg 06/22/25 20:00 06/23/25 13:04 Ipratropium Br 0.02% Inh Soln 0.5 Mg/2.5 Ml Vial INHALATION 0.5 mg Q6HRT YUDELKA Administration Levalbuterol HCl 1.25 mg 06/22/25 20:00 06/23/25 13:04 Levalbuterol Neb 1.25 Mg/3 Ml INHALATION 1.25 mg Q6HRT YUDELKA Administration Losartan Potassium 25 mg 06/22/25 17:00 06/23/25 08:39 Losartan Potassium 25 Mg Tablet PO 25 mg BID YUDELKA Administration Nitroglycerin 0.4 mg 06/22/25 15:39 Nitroglycerin Sl 0.4 Mg Tablet SUBLINGUAL Q5MIN PRN Chest Pain Prednisone 40 mg 06/23/25 08:00 06/23/25 08:39 Prednisone 20 Mg Tablet PO 06/27/25 08:01 40 mg DAILY@0800 YUDELKA Administration Risperidone 1 mg 06/22/25 17:00 06/23/25 12:25 Risperidone 1 Mg Tablet PO 1 mg TID YUDELKA Administration Rivaroxaban 20 mg 06/22/25 17:00 06/22/25 16:59 Rivaroxaban 20 Mg Tablet PO 20 mg DAILY@1700 YUDELKA Administration Simvastatin 20 mg 06/22/25 21:00 06/22/25 21:33 Simvastatin 20 Mg Tablet PO 20 mg HS YUDELKA Administration Vancomycin HCl 1 each 06/23/25 14:15 Vancomycin Pharmacist To Dose IVPB PER PROTOCOL YUDELKA Vitamin D 50 mcg 06/23/25 09:00 06/23/25 08:38 Cholecalciferol (Vitamin D3) 25 Mcg (1,000 Units) Tablet PO 50 mcg DAILY YUDELKA Administration Radiology Results: ITS Impressions Chest X-Ray 06/23/25 11:16 IMPRESSION: 1. Worsening right upper lobe airspace disease or pneumonia. 2. Worsening interstitial pulmonary edema. 3. Persistent pleural effusions and bibasilar atelectasis Head CT 06/23/25 12:29 IMPRESSION: 1. No acute intracranial findings. Labs Labs: Laboratory Results - last 24 hr 06/22/25 06/22/25 06/23/25 14:29 16:48 04:23 WBC 16.2 H RBC 4.06 L Hgb 12.1 Hct 38.9 MCV 95.8 D MCH 29.8 MCHC 31.1 L RDW 15.4 H Plt Count 211 MPV 12.1 H Immature Gran % (Auto) 0.6 H Neut % (Auto) 85.9 H Lymph % (Auto) 6.3 L [place] % (Auto) 7.1 Eos % (Auto) 0.0 Baso % (Auto) 0.1 L Lymph # (Auto) 1.02 [place] # (Auto) 1.2 H Eos # (Auto) 0.0 Baso # (Auto) 0.0 Abs Immat Gran (auto) 0.10 H Absolute Neuts (auto) 13.9 H Absolute Nucleated RBC 0.000 Nucleated RBC % 0.0 Sodium Potassium Chloride Carbon Dioxide Anion Gap BUN Creatinine Estim Creat Clear Calc Estimated GFR Glucose Calcium Troponin I 0.039 H* D 0.031 D 06/23/25 10:10 WBC RBC Hgb Hct MCV MCH MCHC RDW Plt Count MPV Immature Gran % (Auto) Neut % (Auto) Lymph % (Auto) [place] % (Auto) Eos % (Auto) Baso % (Auto) Lymph # (Auto) [place] # (Auto) Eos # (Auto) Baso # (Auto) Abs Immat Gran (auto) Absolute Neuts (auto) Absolute Nucleated RBC Nucleated RBC % Sodium 141 Potassium 3.3 L Chloride 110 H Carbon Dioxide 28 Anion Gap 3 L BUN 24 H Creatinine 1.02 H Estim Creat Clear Calc 43 Estimated GFR 53 L Glucose 154 H Calcium 9.0 Troponin I Quality VTE Prophylaxis VTE prophylaxis: pharmacologic ordered
[2025-06-23] MEDS: FUROSEMIDE INJ 40 MG/4 ML VIAL IV PUSH (16:18)
[2025-06-23] MEDS: RIVAROXABAN 20 MG TABLET PO (16:19)
[2025-06-23] MEDS: metroNIDAZOLE 500 MG/ISO 100ML 500 MG/100 ML BAG 100 MG IVPB ×2 (16:25→21:39)
[2025-06-23] MEDS: levoFLOXacin 750 MG/D5W 150 ML 750 MG/150 ML BAG 100 MG IVPB (16:25)
[2025-06-23] MEDS: cefTRIAXone 1 GM in SODIUM CHLORIDE 0.9% IV 50 ML 100 ML IVPB (16:31)
[2025-06-23] MEDS: VANCOMYCIN 2,000 MG/NS 500 ML 2,000 MG/500 ML BAG 250 MG IVPB (18:20)
[2025-06-23 18:40] LABS: MRSA (PCR) NOT DETECTED (NOT DETECTE)
[2025-06-23 21:19] LABS: Procalcitonin 0.1 ng/mL
[2025-06-23] MEDS: SIMVASTATIN 20 MG TABLET PO (21:39)
[2025-06-23] MEDS: ACETAMINOPHEN 325 MG TABLET 650 MG PO (21:40)
[2025-06-24] VITALS (30 sets, daily range): BP systolic 99–147; BP diastolic 50–87; PULSE 71–153; RESP 20–24; TEMP 36.4–37.2; O2SAT 90–100
[2025-06-24] MEDS: IPRATROPIUM BR 0.02% INH SOLN 0.5 MG/2.5 ML VIAL INHALATION ×4 (01:26→20:20)
[2025-06-24] MEDS: DOXYCYCLINE IV 100 MG in SODIUM CHLORIDE 0.9% IV 100 ML IVPB ×2 (03:20→15:16)
[2025-06-24 04:34] LABS: Hematocrit 37.3 % (37.0-47.0); Hemoglobin 11.8 g/dL (12.0-15.0); Immature Granulocyte Percent A 0.8 % (0-0.5); Lymphocytes Absolute Auto 1.13 K/mm3 (0.9-3.2); Mean Corpuscular HGB Conc 31.6 g/dl (32-36); Mean Corpuscular Hemoglobin 29.1 pg (26-34); Mean Corpuscular Volume 91.9 fl (80-100); Nucleated Red Blood Cells Absolute Auto 0.000 K/mm3 (0.0-0.012); Nucleated Red Blood Cells Perc 0.0 % (0.0-0.2); Platelet Count Result 238 k/mm3 (150-375); Red Blood Count 4.06 M/mm3 (4.2-5.4); White Blood Count 18.1 K/mm3 (4.5-10.0)
[2025-06-24 04:58] LABS: Alanine Aminotransferase 12 U/L (6-35); Albumin Level 3.8 g/dL (3.5-5.1); Alkaline Phosphatase 52 U/L (38-126); Anion Gap 4 mmol/L (4-12); Aspartate Amino Transferase 18 U/L (14-36); Bilirubin,Total 0.5 mg/dL (0.2-1.3); Blood Urea Nitrogen 28 mg/dL (7-17); Calcium 8.7 mg/dL (8.4-10.2); Carbon Dioxide 26 mmol/L (22-30); Chloride 111 mmol/L (98-107); Estimated CRCL calculation 44 ml/min; Estimated Glomerular Filt Rate 54; Glucose 133 mg/dL (65-110); Magnesium 2.3 mg/dL (1.6-2.3); Potassium 3.6 mmol/L (3.4-5.0); Sodium 141 mmol/L (137-145); Total Protein 6.6 g/dL (6.3-8.2)
[2025-06-24] MEDS: metroNIDAZOLE 500 MG/ISO 100ML 500 MG/100 ML BAG 100 MG IVPB ×3 (06:21→22:26)
[2025-06-24] MEDS: BENZONATATE 100 MG CAPSULE PO ×2 (06:37→12:08)
--- NOTE | 2025-06-24 07:44 | PM.CNPUL ---
Assessment and Plan Assessment and plan (1) Abnormal PFT: Code(s): R94.2 - Abnormal results of pulmonary function studies Status: Acute Assessment and Plan: PFTs on 12/12/2024 demonstrate Preserved Ratio Impaired Spirometry (PRISm) with a normal FVC. she has a 5 pack year tobacco history and is currently smoking [address] scan of the chest shows no significant bullous emphysema. She has no bronchodilator response. The plan in the Pulmonary Clinic was to give her therapeutic trial of bronchodilators to see if this gave her clinical benefit. PFT showed PRISm which indicates early airflow obstruction. People with PRISm may have increased respiratory symptoms despite not meeting formal criteria for COPD. This may progress to a restrictive or obstructive process and can be associated with increased cardiovascular and all cause mortality in some studies. 06/24/2025: Patient tells me she has improved. She has 50% back to her normal. Her cough is essentially resolved. She denies phlegm or hemoptysis. She has no wheezing. When I enter the room she was on Airvo 40 L, 66% FiO2 with saturations 96%. The placed her on 15 L nasal cannula and sequentially decreased her to 10 L nasal cannula saturations 93%. Clinically she had no change when I switched her to nasal cannula oxygen. White blood cell count 18.1, creatinine 1.01. Procalcitonin unchanged from 0.1 on 06/23/2025 20.1 today. CRP today 13.0. BNP has improved from 3630 on 06/22/2025 to 2770 today. she has been diuresed with Lasix 40 IV b.i.d.. Yesterday she was positive 379 mL. Cumulative she is positive 2.7 L since admission. Her heart rate was AFib 130-140 and I have discontinue levalbuterol. ABG on 10 L nasal cannula 7.37/45/54. There is no evidence of hypercarbic respiratory failure. Plan: Patient currently has no wheezing and given her uncontrolled atrial fibrillation with RVR, I will discontinue levalbuterol. I will initiate ipratropium nebulizers q.4 hours and increase budesonide nebulizer 0.5 mg b.i.d. In case she has reactive airways disease. Given major concern is for bronchopneumonia I will discontinue prednisone today. She has received 3 days of systemic steroids. Discussed with , will follow with you. (2) Pneumonia: Qualifiers: Laterality: bilateral Lung location: unspecified part of lung Pneumonia type: due to unspecified organism Qualified Code(s): J18.9 - Pneumonia, unspecified organism Code(s): J18.9 - Pneumonia, unspecified organism Status: Acute Assessment and Plan: Patient presents with worsening respiratory symptoms, no leukocytosis, afebrile, COVID influenza RSV RT PCR assay negative, MRSA swab negative, chest x-ray with small effusions and congestion and a CT scan with bilateral infiltrates. CT scan of the chest 06/23/2025 compared to 05/06/2025 shows new bilateral upper lobe infiltrates right greater than left small medial segment of the right middle lobe infiltrate lingular infiltrates with very small left pleural effusion. These ground-glass infiltrates are new since 05/06/2025 there is no evidence of chronic interstitial lung disease, bullous emphysema, nodules or masses. Plan: I will discontinue vancomycin. I am no evidence for anaerobic lung infection will discontinue metronidazole. Will continue levofloxacin 750 mg Q 48 hours and doxycycline 100 q.12. I will send a repeat COVID influenza RSV RT PCR assay. I will send respiratory pathogen panel, urine for Legionella antigen, urine for pneumococcal antigen and serum for mycoplasma IgM. (3) Acute exacerbation of CHF (congestive heart failure): Qualifiers: Heart failure type: diastolic Qualified Code(s): I50.33 - Acute on chronic diastolic (congestive) heart failure Code(s): I50.9 - Heart failure, unspecified Status: Acute Assessment and Plan: Patient with fluid overload and AFib with RVR. 06/24/25: BNP has improved from 3630 on 06/22/2025 to 2770 today. she has been diuresed with Lasix 40 IV b.i.d.. Yesterday she was positive 379 mL. Cumulative she is positive 2.7 L since admission. Her heart rate was AFib 130-14o Plan: Management per branch operations manager and hospitalist teams. Recommended as aggressive diuresis as tolerated by patient's cardiac and renal systems. I have discontinue levalbuterol. Patient has been switched to 40 mg p.o. q.day start time 5:00 p.m.. History of Present Illness History of Present Illness Consult date: 06/24/25 Chief complaint: SOB Narrative: 06/24/2025: This is a new pulmonary consult for respiratory failure. 74-year-old with a history of CHF, DM, HTN, GERD, HLD, COPD patient is followed in the Pulmonary Clinic in last seen on 04/02/2025: This is note and plan. 3 month follow-up regarding coughing. Hx: CHF, DM, HTN, GERD, HLD, COPD. Sees [facility] cardiology. She was hospitalized last month 02/22/25 from 02/25 regarding afib RVR, NAT, CHF, and pneumonia. CXR showed confluent opacity in the lower 3rd of the left hemithorax which is a slightly increased in size, small patchy opacities in the right lower lung. CTA of the chest showed a few small ground-glass and patchy opacities in both lungs more prominent in the lower lungs, small left pleural effusion, tiny right pleural effusion, several low-density indeterminate lesions scattered throughout the liver, indeterminate 2.3 cm left adrenal nodule. She was tx with abx for PNA, Cardizem gtt for afib, fluid bolus for NAT, and Lasix for CHF. She went to the ER 3 days after discharge as the metoprolol dose was increased prior and she was having lightheadedness, heart racing, and low BP. Chest x-ray showing likely a small pleural effusion on the left. Recommended follow-up with cardiology. Prior to her hospitalization, she called our office c/o dyspnea, dry coughing, and wheezing. CXR showed Bibasilar infiltrates may represent atelectasis or pneumonia. No significant change. Small pleural effusions. She was tx with doxycycline on 02/12. Today she reports improvement in symptoms since discharge. HAMMER is better and she is not coughing as much as she previously did. Tessalon Perles seem to help. She was to be setup on nebulizer with Duonebs last visit. However she reports she never got it. She has been using her rescue inhaler 2x/day which she feels helps. She reports unchanged symptoms of wheezing at times. Otherwise denies chest pains/tightness, fever, hemoptysis, or nighttime breathing issues. Current smoker 6 cigs/day. Smoker for 10 year 0.5ppd. Denies family hx of lung disease. Weight 175 lb room air saturations 95% plan: PFTs with prism. . Astepro did not help her coughing. Resend an order for nebulizer with DuoNebs p.r.n.. Pleural effusions: CT scan of the chest. 05/06/2025: CT scan of the chest with a very small left pleural effusion, discoid atelectasis anterior left lower lobe and minimal right dependent atelectasis in the right lower lobe. No emphysematous changes. No nodules or masses. 06/17/2025: Patient presented to the emergency room with dyspnea on exertion for 2-3 days, wheezing, room air saturations 95%. Chest x-ray with no acute abnormalities. Patient was diagnosed with bronchitis and treated with prednisone x5 days. Patient took this prednisone as prescribed but 1 day after finishing the prednisone she had worsening shortness of breath. 06/22/2025 patient presented to the emergency department with worsening shortness of breath, cough, wheezes the felt like worsening COPD exacerbation. Blood pressure 110/58, heart rate 81, respirations 22, room air saturations 86%. Patient was placed on 3 L nasal cannula saturations were 98%. She had diffuse wheezes. White blood cell count was 10.9, eosinophils 0.6%. BNP 3630. Creatinine 1.09. COVID influenza RSV RT PCR assay negative. Chest x-ray showed small effusions with congestion. She was given 2 L IV fluid, Solu-Medrol, Lasix 20 IV, ceftriaxone and doxycycline. MRSA swab was negative. 06/23/2025: Patient developed AFib RVR requiring IV metoprolol and IV diltiazem. She had worsening oxygenation requiring Airvo at 8:00 p.m. 45 L, 80% FiO2 with saturations 92%. Antibiotics were changed to vancomycin and Levaquin. Her MRSA swab was negative and vancomycin was discontinued. 06/24/2025: Patient tells me she has improved. She has 50% back to her normal. Her cough is essentially resolved. She denies phlegm or hemoptysis. She has no wheezing. When I enter the room she was on Airvo 40 L, 66% FiO2 with saturations 96%. The placed her on 15 L nasal cannula and sequentially decreased her to 10 L nasal cannula saturations 93%. Clinically she had no change when I switched her to nasal cannula oxygen. White blood cell count 18.1, creatinine 1.01. Procalcitonin unchanged from 0.1 on 06/23/2025 20.1 today. CRP today 13.0. BNP has improved from 3630 on 06/22/2025 to 2770 today. she has been diuresed with Lasix 40 IV b.i.d.. Yesterday she was positive 379 mL. Cumulative she is positive 2.7 L since admission. Her heart rate was AFib 130-140 and I have discontinue levalbuterol. 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 FINDINGS: No significant coronary calcification is present ([id number]) LUNGS: Trace left pleural effusion. Trace right pleural effusion. No tracheomalacia. No bronchiectasis. Minimal emphysematous changes. Mild pulmonary fibrotic changes. There are bilateral areas of groundglass attenuation with infiltrates in the upper lobes bilaterally, the left lower lobe and the right lower lobe as well as the right middle lobe. Scattered micronodules are noted which are probably infectious. HEART AND PERICARDIUM: Mild cardiomegaly. Trace pericardial effusion. AORTA: Normal caliber aorta. ADENOPATHY/MEDIASTINUM: None. LIMITED VIEWS OF THE ABDOMEN: Complex appearing liver cysts the largest right lobe liver 1 x 1 cm. Right kidney renal calculi noted the largest mid pole 3 mm with partially imaged probable renal cyst 2 x 2 cm. Left kidney renal calculi the largest mid pole 2 mm. There is thickening of the adrenal glands bilaterally with left adrenal nodule 1 x 1 cm probable benign adrenal adenoma. Small hiatal hernia noted. OSSEOUS STRUCTURES: No acute osseous abnormality.No suspicious lesions. OVERLYING SOFT TISSUES: Unremarkable. THYROID: The thyroid is unremarkable. IMPRESSION: Severe bilateral bronchopneumonia. Follow-up recommended to assess resolution. 06/22/25: Echo Summary 1. Left ventricular systolic function is hyperdynamic, estimated at >70. 2. There is mildly increased left ventricular wall thickness. 3. The left ventricular diastolic function is abnormal. 4. Left atrial chamber dimension is mildly enlarged. 5. There is small pericardial effusion. 6. atrial fibrillation with RVR. Right Ventricle Right ventricular chamber dimension is normal. Right ventricular systolic function is normal. Left Atria Left atrial chamber dimension is mildly enlarged. Right Atria Right atrial chamber dimension is normal. No tricuspid regurg and no PASP calculated 05/06/25: EXAMINATION: CT diagnostic chest wo con INDICATION: J90 - Pleural effusion, not elsewhere classified COMPARISON: CT dated 02/22/2025 FINDINGS: Tiny left pleural effusion. Discoid atelectasis in the left upper lobe and lingula along the major fissure. Compressive atelectasis in the anterior basilar left lower lobe along side the enlarged heart discoid and basilar atelectasis in the right lower lobe and atelectasis at the posterior medial aspect of the right middle lobe. No pulmonary edema, pneumonia or right-sided pleural effusion. Atherosclerotic coronary artery calcification is. No pericardial effusion. Thoracic aorta is normal in caliber. No pathologically enlarged thoracic lymphadenopathy. Multiple scattered small bilateral nonobstructing renal stones the largest in the right kidney measuring 4-5 mm. 3.3 cm right renal cyst. There are also several smaller cysts in the liver measuring up to 1.4 cm. 1.5 cm low-attenuation left adrenal adenoma. Mild thoracic dextroscoliosis with moderate to severe spondylosis. T10 hemangioma. C5-C7 anterior spinal fusion with anterior plate and screw fixation.. IMPRESSION: 1. Very small left pleural effusion and scattered atelectasis in the left mid and bilateral lower lung zones. 2. Cardiomegaly. 3. Bilateral nonobstructing nephrolithiasis. 03/30/25: EXAMINATION: MR abdomen wo/w con INDICATION: Liver disease, unspecified. TECHNIQUE: Magnetic resonance imaging (MRI) of the abdomen was performed without and with 15 mL MultiHance intravenous contrast. COMPARISON: Abdomen MRI 01/18/2020 FINDINGS: Cardiomegaly is noted. No pericardial effusion. There is trace pleural effusions. There is diffuse hepatic steatosis. There are cysts in the liver measuring up to 11 mm. The gallbladder is absent. The common duct measures 12 mm in diameter, likely not clinically significant given the normal liver function tests on 03/27/2025. The spleen, pancreas, and right adrenal gland are normal. There is chronic thickening of left adrenal gland, likely benign. There are cysts in the kidneys measuring up to 3.8 cm on the right. There are no dilated loops of bowel. There are no pathologically enlarged lymph nodes. There is no free intraperitoneal fluid. IMPRESSION: 1. Diffuse hepatic steatosis. 02/22/2025: EXAMINATION: CTA chest PE protocol INDICATION: Palpitations. Atrial fibrillation. COMPARISON: 09/02/2017 FINDINGS: Cervical hardware. There is a mildly enlarged 1.4 cm subcarinal lymph node similar to the study from 09/02/2017. There are a few additional nonenlarged mediastinal and hilar lymph nodes. Several new low-density lesions scattered throughout the liver, the largest measures 1.5 cm in the right lobe of the liver. A Liver mass MRI is recommended. There is a too small to characterize low-attenuation lesion in the right kidney. Indeterminate 2.3 cm left adrenal nodule. An adrenal mass MRI is recommended. Heart is moderately enlarged. There are coronary artery calcifications. Thoracic aorta is not aneurysmal. Mild to moderate discredit disease in the thoracic aorta. Small left-sided pleural effusion. Bones appear osteopenic. Multilevel degenerative change in the visualized spine. Visualized tracheobronchial tree is patent. Tiny right-sided pleural effusion. Mild biapical scarring. There are a few small groundglass and patchy opacities in both lungs most prominent in the lower lobes. IMPRESSION: 1. There are a few small groundglass and patchy opacities in both lungs most prominent in the lower lobes. Differential includes but is not limited to atelectasis/scarring or infiltrates. 2. Small left-sided pleural effusion. Tiny right-sided pleural effusion. 3. Several new low-density indeterminate lesions scattered throughout the liver, the largest measures 1.5 cm in the right lobe of the liver. A Liver mass MRI is recommended. 4. Indeterminate 2.3 cm left adrenal nodule. An adrenal mass MRI is recommended. CXR 02/28/25 - Confluent opacity in the lower third of the left hemithorax. Differential includes a combination of pleural fluid with adjacent atelectasis and/or consolidation. An underlying mass is possible. Recommend follow-up to resolution. Consider a chest CT. Small patchy opacities in the right mid and lower lung. Differential includes metastasis/scarring or infiltrates. 12/12/2024: This is a pulmonary function test with pre and post-bronchodilator spirometry, plethysmography and diffusing capacity. The test was performed and results interpreted in accordance with the 2019 and 2005 ATS/ERS Task Force guidelines respectively using the Global Lung Function Initiative-2012 reference equations. Patient demonstrated good effort and cooperation. Reproducibility criteria were met. The quality of the pre bronchodilator spirometry maneuver was Grade A and post bronchodilator spirometry maneuver was Grade A. Findings: Spirometry: The contour the inspiratory and expiratory flow tracing are normal. The pre bronchodilator FVC is 1.90 L, 76% predicted. The pre bronchodilator FEV1 is 1.34 L, 69% predicted. The pre bronchodilator FEV1: FVC ratio 70%. The post bronchodilator FVC is 1.89 L, representing a 1% decrease. The post bronchodilator FEV1 is 1.37 L, representing a 3% increase. The post bronchodilator FEV1: FVC ratio is 73%. Plethysmography: The total lung capacity is 4.01 L, 87% predicted. The functional residual capacity is 2.42 L, 92% predicted. The residual volume is 2.12 L, 102% predicted. Diffusing capacity: The diffusing capacity unadjusted for hemoglobin and carboxyhemoglobin is 10.0, 53% predicted. The diffusing capacity adjusted for alveolar volume is 3.03, 69% predicted. Impression: The FEV1 is less than 80% predicted and the FEV1: FVC ratio is greater than the lower limit of normal consistent with Preserved Ratio Impaired Spirometry (PRISm) with a normal FVC. The spirometry is normal without evidence of an obstructive abnormality. There is no significant improvement after inhaling a single dose of albuterol. The lung volumes are normal. The diffusing capacity unadjusted for hemoglobin and carboxyhemoglobin is moderately decreased and remains mildly decreased when adjusted for alveolar volume. There are no prior studies for comparison 12/12/2024: This is a 6 minute walk test. The test was performed and interpreted in accordance with the 2014 ERS/ATS task force guidelines. Of note, the last 2 minutes the patient used to wheeled walker due to back pain. Findings: The patient's resting room air oxygen saturation measured by pulse oximetry was 95%, the heart rate was 90 bpm, and the modified Thanh dyspnea score was 0. Patient ambulated for 213 meters and oxygen saturation remained 91 to 94%. At the end of the study the heart rate was 112 bpm and the modified Thanh dyspnea score was 0. The patient did not qualify for supplemental oxygen at rest or with ambulation. CXR 09/29/24 - Small left pleural effusion is present. Possible minimal right pleural effusion. Echo 10/23/22 - EF 55-60%, left ventricular diastolic function is abnormal, mild pulmHTN RVSP 46mmHg. 10/22/2022: EXAMINATION: CTA chest PE protocol INDICATION: Chest pain, shortness of breath and elevated d-dimer. COMPARISON: CT dated 09/02/2017 and chest x-ray dated 11/08/2022. FINDINGS: Study is technically limited for evaluation of right upper lobe pulmonary arteries due to motion and contrast bolus timing. No large central pulmonary embolism. Cardiomegaly. Small pleural effusions. There is mediastinal lymphadenopathy, likely reactive. Patchy groundglass opacities involving the upper lobes and right lower lobe. There is dependent atelectasis. No endobronchial lesions. No pneumothorax. No evidence for aortic aneurysm or dissection. There are multiple low-density lesions in the liver, largest in the right hepatic lobe showing 1.5 cm, compatible with a cyst. There is nodular thickening of the adrenal glands, likely secondary to benign adenomas. Moderate thoracic spondylosis. Surgical fusion changes present in the lower cervical spine. 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 IMPRESSION: 1. Patchy groundglass opacities, most confluent in the right upper lobe, consistent with pneumonia. 2: No large central pulmonary embolism. 3: Mediastinal lymphadenopathy, likely reactive. 4: Small pleural effusions. Review of Systems Constitutional: Constitutional: Reports no additional constitutional complaints Eyes: Eyes: Reports no additional eye complaints ENT: Reports system reviewed and no additional complaints, except as documented Cardiovascular: Cardiovascular: Reports no additional cardiovascular complaints Respiratory: Respiratory: Reports no additional respiratory complaints Gastrointestinal: Gastrointestinal: Reports no additional gastrointestinal complaints Musculoskeletal: Musculoskeletal: Reports no additional musculoskeletal complaints Neurologic: Reports system reviewed and no additional complaints, except as documented Psychiatric: Psychiatric: Reports no additional psychiatric complaints Endocrine: Endocrine: Reports no additional endocrine complaints Hematologic/Lymphatic: Hematologic/Lymphatic: Reports no additional hematologic/lymphatic complaints Allergic/Immunologic: Allergic/Immunologic: Reports no additional allergic/immunologic complaints [facility] Past Medical History Medical History (Updated 06/24/25 @ 11:01 by Diego Hernandez MD) Mild pulmonary hypertension Estimated PASP of 46 mmHg on echo in 10/2022. Diastolic dysfunction Echocardiogram on 10/23/2022: normal LV size and function, estimated EF of 55 to 60%, diastolic dysfunction, moderate left atrial enlargement, and mild pulmonary hypertension. Hyperlipidemia Type 2 diabetes mellitus Diet-controlled, recent A1c was 5.9% 03/2025. Atrial fibrillation Frequent urinary tract infections Chronic pain syndrome Vitamin D deficiency Normocytic anemia Nicotine use Depression with anxiety Kidney stones Shingles Arthritis Gastroesophageal reflux disease Hypertension Sinus congestion Surgical History Surgical History History of fusion of cervical spine C4 through C6. History of lithotripsy History of hernia repair History of appendectomy Family History Family History Sibling Family history of blood dyscrasia Family history of malignant neoplasm Family history of seizure disorder Mother Family history of malignant neoplasm, Onset Age: 85 Family history of lymphoma, Onset Age: 85 Family history of atrial fibrillation, Onset Age: 85 Social History Social History Social History: Surrogate medical decision maker: Usha Ashley, granddaughter. Code status: Full code. Years smoked: 7 Smoking status: Former smoker Tobacco type: cigarettes Second hand tobacco smoke exposure: Yes Alcohol intake: never Substance use: current Substance use type: painkillers Other substance usage details: for chronic pain Lack of Transportation: No Lack of Food: Never True Current Housing: I Have Housing Concerned About Future Housing: No Difficulty Paying Gas/Electric Bills: No Difficulty Paying for Meds: No Currently Unemployed: No Education: High School Diploma/GED Difficulty w/ Childcare or Family Care: No Living arrangements: alone Spiritual care concerns: No Agree to blood products: Yes Meds Home Medications and Allergies Home Medications ?Medication ?Instructions ?Recorded ?Confirmed ?Type duloxetine 60 mg capsule,delayed 60 mg PO BID 12/26/19 06/22/25 History release (Cymbalta) risperidone 1 mg tablet 1 mg PO TID 10/22/22 06/22/25 History simvastatin 20 mg tablet See Rx Instructions .Route 10/11/24 06/22/25 Rx .COMPLEX #90 tabs cholecalciferol (vitamin D3) 50 See Rx Instructions .Route 11/24/24 06/22/25 Rx mcg (2,000 unit) capsule .COMPLEX #90 caps rivaroxaban 20 mg PO DAILY 02/22/25 06/22/25 History gabapentin 800 mg tablet See Rx Instructions .Route 03/30/25 06/22/25 Rx .COMPLEX #360 tabs metoprolol tartrate 50 mg tablet 25 mg PO BID 03/30/25 06/22/25 History ipratropium 0.5 mg-albuterol 3 mg 3 ml inhalation Q6H PRN shortness 05/03/25 06/22/25 Rx (2.5 mg base)/3 mL nebulization of breath or wheezing #360 mL soln benzonatate 100 mg capsule 100 mg PO TID PRN Cough #90 caps 05/09/25 06/22/25 Rx prednisone 20 mg tablet 40 mg (2 x 20 mg) PO DAILY 4 days 06/17/25 06/22/25 Rx #8 tabs budesonide 0.5 mg/2 mL suspension 0.5 mg (2 mL) inhalation DAILY #60 06/20/25 06/22/25 Rx for nebulization mL losartan 25 mg tablet 25 mg PO BID 06/22/25 06/22/25 History hydrocodone 5 mg-acetaminophen 325 1 tablet PO Q8H PRN pain 06/23/25 06/23/25 History mg tablet Allergies Allergy/AdvReac Type Severity Reaction Status Date / Time erythromycin base Allergy Hives Verified 06/22/25 15:29 Penicillins Allergy Hives Verified 06/22/25 15:29 Vital Signs Vital Signs - 24 hr 06/23/25 07:48 06/23/25 08:00 06/23/25 08:00 Temperature Pulse Rate 98 Respiratory Rate Blood Pressure 148/76 H Pulse Oximetry 92 90 Oxygen Delivery High Flow Therapy with Na Nasal Cannula Oxygen Flow Rate 5 6 Fraction of Inspired Oxygen 06/23/25 08:00 06/23/25 09:58 06/23/25 10:00 Temperature Pulse Rate 105 H 103 H 103 H Respiratory Rate Blood Pressure 128/59 L 128/59 L Pulse Oximetry 92 Oxygen Delivery Oxygen Flow Rate Fraction of Inspired Oxygen 06/23/25 10:00 06/23/25 11:26 06/23/25 11:35 Temperature 36.8 C Pulse Rate 93 92 101 H Respiratory Rate 22 H Blood Pressure 122/65 122/65 Pulse Oximetry 90 Oxygen Delivery Oxygen Flow Rate Fraction of Inspired Oxygen 06/23/25 12:00 06/23/25 12:00 06/23/25 12:00 Temperature Pulse Rate 101 H 88 Respiratory Rate Blood Pressure 122/65 Pulse Oximetry 90 Oxygen Delivery Nasal Cannula Oxygen Flow Rate 10 Fraction of Inspired Oxygen 06/23/25 13:10 06/23/25 13:15 06/23/25 13:15 Temperature Pulse Rate 98 110 H Respiratory Rate 22 H Blood Pressure 148/54 H Pulse Oximetry 94 Oxygen Delivery High Flow Therapy with Na Oxygen Flow Rate 50 Fraction of Inspired Oxygen 70 06/23/25 13:20 06/23/25 13:21 06/23/25 14:00 Temperature Pulse Rate 98 Respiratory Rate 22 H Blood Pressure Pulse Oximetry 95 95 Oxygen Delivery High Flow Therapy with Na High Flow Therapy with Na Oxygen Flow Rate 50 45 Fraction of Inspired Oxygen 70 80 06/23/25 14:00 06/23/25 15:27 06/23/25 16:00 Temperature 36.7 C Pulse Rate 102 H 104 H Respiratory Rate 22 H Blood Pressure 140/59 L Pulse Oximetry 96 96 Oxygen Delivery High Flow Therapy with Na Oxygen Flow Rate 40 Fraction of Inspired Oxygen 75 06/23/25 16:00 06/23/25 18:00 06/23/25 20:00 Temperature 36.3 C L Pulse Rate 102 H 105 H 99 Respiratory Rate 24 H Blood Pressure 123/51 L Pulse Oximetry 97 Oxygen Delivery Oxygen Flow Rate Fraction of Inspired Oxygen 06/23/25 20:00 06/23/25 20:08 06/23/25 20:12 Temperature Pulse Rate 104 H 99 Respiratory Rate 20 Blood Pressure Pulse Oximetry 92 Oxygen Delivery Oxygen Flow Rate 45 Fraction of Inspired Oxygen 80 06/23/25 20:20 06/23/25 21:22 06/23/25 22:00 Temperature Pulse Rate 84 99 127 H Respiratory Rate 20 24 H Blood Pressure Pulse Oximetry 97 Oxygen Delivery High Flow Therapy with Na Oxygen Flow Rate 40 Fraction of Inspired Oxygen 81 06/24/25 00:00 06/24/25 00:00 06/24/25 00:25 Temperature 36.4 C L Pulse Rate 130 H 110 H 130 H Respiratory Rate 24 H 24 H Blood Pressure 116/80 Pulse Oximetry 100 100 Oxygen Delivery High Flow Therapy with Na Oxygen Flow Rate 40 Fraction of Inspired Oxygen 81 06/24/25 01:26 06/24/25 01:29 06/24/25 01:35 Temperature Pulse Rate 117 H 115 H 120 H Respiratory Rate 20 20 20 Blood Pressure Pulse Oximetry 100 Oxygen Delivery High Flow Therapy with Na Oxygen Flow Rate 45 Fraction of Inspired Oxygen 80 06/24/25 02:00 06/24/25 04:00 06/24/25 04:00 Temperature 36.6 C Pulse Rate 110 H 123 H 120 H Respiratory Rate 24 H Blood Pressure 121/83 Pulse Oximetry 98 Oxygen Delivery Oxygen Flow Rate Fraction of Inspired Oxygen 06/24/25 04:00 06/24/25 06:00 Temperature Pulse Rate 120 H 113 H Respiratory Rate 24 H Blood Pressure Pulse Oximetry 98 Oxygen Delivery High Flow Therapy with Na Oxygen Flow Rate 40 Fraction of Inspired Oxygen 67 Exam Const: General: cooperative, healthy appearing and comfortable Orientation/consciousness: oriented to person, oriented to place and oriented to time HENMT: Head: normal to inspection Ears: hearing grossly normal bilaterally Eyes: General: appearance normal, both eyes and all related structures Neck: Neck: normal visual inspection Chest: Chest palpation & inspection: normal inspection of the chest Resp: Effort & Inspection: normal respiratory effort and able to speak in complete sentences Auscultation: no crackles, no rales, no rhonchi, no wheezes and lung sounds not diminished Other: No wheezes. Cardio: Jugular venous distension: no JVD GI: Inspection: normal to inspection GI Palp: No abdominal tenderness Skin: General skin exam: normal color Neuro: General: oriented to person, oriented to place and oriented to time Extrem: General: normal to inspection Psych: Appearance: grossly normal Results Laboratory Findings 06/24/25 04:20 06/24/25 04:20 Abnormal lab findings: Abnormal Labs 06/22/25 06/22/25 06/23/25 11:00 14:29 04:23 WBC 10.9 H 16.2 H RBC 4.11 L 4.06 L Hgb MCHC 31.1 L RDW 14.9 H 15.4 H MPV 11.4 H 12.1 H Immature Gran % (Auto) 0.6 H 0.6 H Neut % (Auto) 85.9 H Lymph % (Auto) 18.2 L 6.3 L [place] % (Auto) 12.8 H Baso % (Auto) 0.1 L [place] # (Auto) 1.4 H 1.2 H Abs Immat Gran (auto) 0.06 H 0.10 H Absolute Neuts (auto) 7.4 H 13.9 H Potassium Chloride 108 H Anion Gap 2 L BUN Creatinine 1.09 H Estimated GFR 49 L Glucose 119 H Troponin I 0.051 H* 0.039 H* D NT-Pro-B Natriuret Pep 3630 H 06/23/25 06/24/25 10:10 04:20 WBC 18.1 H RBC 4.06 L Hgb 11.8 L MCHC 31.6 L RDW 15.6 H MPV 11.1 H Immature Gran % (Auto) 0.8 H Neut % (Auto) 83.8 H Lymph % (Auto) 6.2 L [place] % (Auto) 9.1 H Baso % (Auto) 0.1 L [place] # (Auto) 1.7 H Abs Immat Gran (auto) 0.14 H Absolute Neuts (auto) 15.2 H Potassium 3.3 L Chloride 110 H 111 H Anion Gap 3 L BUN 24 H 28 H Creatinine 1.02 H 1.01 H Estimated GFR 53 L 54 L Glucose 154 H 133 H Troponin I NT-Pro-B Natriuret Pep Diagnostic Findings Additional studies: ITS Impressions Chest X-Ray 06/22/25 11:21 IMPRESSION: 1. Small bilateral pleural effusions with vascular changes which may represent mild vascular congestion. Atypical inflammatory or infectious process may be present however. Chest X-Ray 06/23/25 11:16 IMPRESSION: 1. Worsening right upper lobe airspace disease or pneumonia. 2. Worsening interstitial pulmonary edema. 3. Persistent pleural effusions and bibasilar atelectasis Head CT 06/23/25 12:29 IMPRESSION: 1. No acute intracranial findings. Chest CT 06/23/25 18:21
[2025-06-24] MEDS: HYDROcodone/acetaminophen (*CRX) 5-325 MG TABLET 1 TAB PO ×3 (07:56→23:28)
[2025-06-24] MEDS: CHOLECALCIFEROL (VITAMIN D3) 25 MCG (1,000 UNITS) TABLET 50 MCG PO (07:57)
[2025-06-24] MEDS: FUROSEMIDE INJ 40 MG/4 ML VIAL IV PUSH (07:57)
[2025-06-24] MEDS: DULoxetine HCL 60 MG CAPSULE.DR PO ×2 (07:57→16:34)
[2025-06-24] MEDS: GABAPENTIN 400 MG CAPSULE 800 MG PO ×4 (07:57→20:17)
[2025-06-24] MEDS: guaiFENesin 12 HR 600 MG TABCR PO (07:58)
[2025-06-24] MEDS: LOSARTAN POTASSIUM 25 MG TABLET PO ×2 (07:58→16:33)
[2025-06-24] MEDS: BUDESONIDE RESPULE NEB 0.5 MG/2 ML AMP INHALATION ×2 (08:42→20:20)
[2025-06-24 08:45] LABS: NT Pro B Type Natriuretic Pept 2770 pg/mL (19.9-100)
[2025-06-24 08:54] LABS: CRP 13.0 mg/dL (<1.0)
[2025-06-24 09:01] LABS: Procalcitonin 0.1 ng/mL
--- NOTE | 2025-06-24 09:11 | P.PNCA_ITS ---
Progress Note: A&P Assessment and Plan (1) Atrial fibrillation with rapid ventricular response: Code(s): I48.91 - Unspecified atrial fibrillation Status: Acute (2) Acute exacerbation of CHF (congestive heart failure): Qualifiers: Heart failure type: diastolic Qualified Code(s): I50.33 - Acute on chronic diastolic (congestive) heart failure Code(s): I50.9 - Heart failure, unspecified Status: Acute (3) HLD (hyperlipidemia): Code(s): E78.5 - Hyperlipidemia, unspecified Status: Acute (4) Hypertension: Qualifiers: Hypertension type: primary hypertension Qualified Code(s): I10 - Essential (primary) hypertension Code(s): I10 - Essential (primary) hypertension Status: Chronic Plan -AFib with RVR -troponin elevation -bronchopneumonia -acute on chronic diastolic heart failure exacerbation. -acute COPD exacerbation -history of hypertension -history of hyperlipidemia -regards to AFib with RVR, remains in AFib with RVR despite receiving diltiazem 60 mg q.6 hours.Continue Xarelto. Echo done during this admission normal ejection fraction. Start metoprolol 50 mg b.i.d. that she takes at home. -in regards to bronchopneumonia CT scan suggestive of severe bronchopneumonia. Continue antibiotics -regards to troponin elevation likely secondary to demand ischemia from AFib with RVR. Denies chest pain.. Echo shows no wall motion abnormalities. -a gastro acute diastolic heart failure exacerbation, at home she takes 20 mg Lasix p.o. as needed. Transition to 40 mg p.o. daily -regards to acute COPD exacerbation, continue p.o. steroids and nebulizers. Also continue antibiotics. Regards to hypertension, continue losartan. Continue diltiazem. Start metoprolol 50 mg b.i.d. -in regards to hyperlipidemia continue statin Subjective Date/time seen: Date of service 06/24/25 09:11 Interval history: This 74-year-old female with history of diastolic heart failure, paroxysmal atrial fibrillation, COPD, diabetes, hypertension, hyperlipidemia, anxiety and depression presents to the hospital with 1 week history of shortness of breath. Associated with cough. Denied lower extremity edema. Consult was called because of atrial fibrillation. Currently in sinus tachycardia with PACs on diltiazem drip 10 mg /hour. Denies chest pain.Creatinine 1, brain atretic peptide at 3600 Chest x-ray reviewed on as miss of mild vascular congestion. Initial EKG shows sinus rhythm with PACs but repeat EKG shows AFib with RVR with ST depressions. Echo done during this admission: 1. Left ventricular systolic function is hyperdynamic, estimated at >70. 2. There is mildly increased left ventricular wall thickness. 3. The left ventricular diastolic function is abnormal. 4. Left atrial chamber dimension is mildly enlarged. 5. There is small pericardial effusion. 6. atrial fibrillation with RVR. Date of service 06/24/2025: She states that she is breathing better. Remains in AFib with RVR. On 10 L Review of Systems Review of Systems: All systems reviewed & are unremarkable except as noted in HPI and below Exam Narrative: Not in distress Const: Other: Not in distress. HENMT: Other: No evidence of bleeding Eyes: Other: No icterus Neck: Other: Supple Chest: Other: Symmetric lung expansion Resp: Other: Decreased air entry bilaterally Cardio: Other: AFib with RVR GI: Other: No distension Skin: Other: No rash Neuro: Other: Alert oriented x3. Moving all extremities Extrem: Other: No edema Psych: Other: Normal behavior Objective Data Vital Signs Vital Signs: Vital Signs - 24 hr 06/23/25 09:58 06/23/25 10:00 06/23/25 10:00 Temperature Pulse Rate 103 H 103 H 93 Respiratory Rate Blood Pressure 128/59 L 128/59 L Pulse Oximetry 92 Oxygen Delivery Oxygen Flow Rate Fraction of Inspired Oxygen 06/23/25 11:26 06/23/25 11:35 06/23/25 12:00 Temperature 36.8 C Pulse Rate 92 101 H 101 H Respiratory Rate 22 H Blood Pressure 122/65 122/65 122/65 Pulse Oximetry 90 Oxygen Delivery Oxygen Flow Rate Fraction of Inspired Oxygen 06/23/25 12:00 06/23/25 12:00 06/23/25 13:10 Temperature Pulse Rate 88 98 Respiratory Rate Blood Pressure 148/54 H Pulse Oximetry 90 Oxygen Delivery Nasal Cannula Oxygen Flow Rate 10 Fraction of Inspired Oxygen 06/23/25 13:15 06/23/25 13:15 06/23/25 13:20 Temperature Pulse Rate 110 H Respiratory Rate 22 H Blood Pressure Pulse Oximetry 94 95 Oxygen Delivery High Flow Therapy with Na High Flow Therapy with Na Oxygen Flow Rate 50 50 Fraction of Inspired Oxygen 70 70 06/23/25 13:21 06/23/25 14:00 06/23/25 14:00 Temperature Pulse Rate 98 102 H Respiratory Rate 22 H Blood Pressure Pulse Oximetry 95 Oxygen Delivery High Flow Therapy with Na Oxygen Flow Rate 45 Fraction of Inspired Oxygen 80 06/23/25 15:27 06/23/25 16:00 06/23/25 16:00 Temperature 36.7 C Pulse Rate 104 H 102 H Respiratory Rate 22 H Blood Pressure 140/59 L Pulse Oximetry 96 96 Oxygen Delivery High Flow Therapy with Na Oxygen Flow Rate 40 Fraction of Inspired Oxygen 75 06/23/25 18:00 06/23/25 20:00 06/23/25 20:00 Temperature 36.3 C L Pulse Rate 105 H 99 104 H Respiratory Rate 24 H Blood Pressure 123/51 L Pulse Oximetry 97 Oxygen Delivery Oxygen Flow Rate Fraction of Inspired Oxygen 06/23/25 20:08 06/23/25 20:12 06/23/25 20:20 Temperature Pulse Rate 99 84 Respiratory Rate 20 20 Blood Pressure Pulse Oximetry 92 Oxygen Delivery Oxygen Flow Rate 45 Fraction of Inspired Oxygen 80 06/23/25 21:22 06/23/25 22:00 06/24/25 00:00 Temperature 36.4 C L Pulse Rate 99 127 H 130 H Respiratory Rate 24 H 24 H Blood Pressure 116/80 Pulse Oximetry 97 100 Oxygen Delivery High Flow Therapy with Na Oxygen Flow Rate 40 Fraction of Inspired Oxygen 81 06/24/25 00:00 06/24/25 00:25 06/24/25 01:26 Temperature Pulse Rate 110 H 130 H 117 H Respiratory Rate 24 H 20 Blood Pressure Pulse Oximetry 100 Oxygen Delivery High Flow Therapy with Na Oxygen Flow Rate 40 Fraction of Inspired Oxygen 81 06/24/25 01:29 06/24/25 01:35 06/24/25 02:00 Temperature Pulse Rate 115 H 120 H 110 H Respiratory Rate 20 20 Blood Pressure Pulse Oximetry 100 Oxygen Delivery High Flow Therapy with Na Oxygen Flow Rate 45 Fraction of Inspired Oxygen 80 06/24/25 04:00 06/24/25 04:00 06/24/25 04:00 Temperature 36.6 C Pulse Rate 123 H 120 H 120 H Respiratory Rate 24 H 24 H Blood Pressure 121/83 Pulse Oximetry 98 98 Oxygen Delivery High Flow Therapy with Na Oxygen Flow Rate 40 Fraction of Inspired Oxygen 67 06/24/25 06:00 06/24/25 08:00 06/24/25 08:43 Temperature 36.8 C Pulse Rate 113 H 147 H 132 H Respiratory Rate 24 H 24 H Blood Pressure 147/87 H Pulse Oximetry 90 Oxygen Delivery Oxygen Flow Rate Fraction of Inspired Oxygen 06/24/25 08:47 06/24/25 09:05 Temperature Pulse Rate 128 H 130 H Respiratory Rate 20 24 H Blood Pressure Pulse Oximetry 97 Oxygen Delivery High Flow Therapy with Na Oxygen Flow Rate 40 Fraction of Inspired Oxygen 60 Intake/Output Intake/Output: Intake & Output 06/21/25 06/22/25 06/23/25 06/24/25 23:59 23:59 23:59 23:59 Intake Total 2485.1 2079.9 500 Output Total 0 1700 650 Balance 2485.1 379.9 -150 Meds/Results Medications: Active Medications Generic Name Dose Route Start Last Admin Trade Name Freq PRN Reason Stop Dose Admin Acetaminophen 650 mg 06/22/25 14:49 06/23/25 21:40 Acetaminophen 325 Mg Tablet PO 650 mg Q4H PRN Administration Mild Pain (1-3) or Fever Hydrocodone Bitart/Acetaminophen 1 tab 06/23/25 08:08 06/24/25 07:56 Hydrocodone/Acetaminophen (*Crx) 5-325 Mg Tablet PO 1 tab Q8H PRN Administration Pain Benzonatate 100 mg 06/22/25 16:14 06/24/25 06:37 Benzonatate 100 Mg Capsule PO 100 mg TID PRN Administration Cough Budesonide 0.5 mg 06/23/25 08:00 06/24/25 08:42 Budesonide Respule Neb 0.5 Mg/2 Ml Amp INHALATION 0.5 mg DAILYRT ROSE MARY Administration Dextrose 12.5 gm 06/22/25 15:39 Dextrose 50% 25 Gm/50 Ml Syringe IV PUSH PRN PRN Hypoglycemia Protocol Diltiazem HCl 60 mg 06/23/25 15:00 06/24/25 07:57 Diltiazem Hcl 60 Mg Tablet PO 60 mg Q6H ROSE MARY Administration Duloxetine HCl 60 mg 06/22/25 17:00 06/24/25 07:57 Duloxetine Hcl 60 Mg Capsule.Dr PO 60 mg BID ROSE MARY Administration Furosemide 40 mg 06/23/25 14:10 06/24/25 07:57 Furosemide Inj 40 Mg/4 Ml Vial IV PUSH 40 mg BID ROSE MARY Administration Gabapentin 800 mg 06/22/25 17:00 06/24/25 07:57 Gabapentin 400 Mg Capsule PO 800 mg QID ROSE MARY Administration Glucagon 1 mg 06/22/25 15:39 Glucagon For Inj 1 Mg Vial IM PRN PRN Hypoglycemia Protocol Glucose 15 gm 06/22/25 15:39 Glucose Oral Gel 15 Gm Of Glucse In 37.5 Gm Tube PO PRN PRN Hypoglycemia Protocol Guaifenesin 600 mg 06/22/25 21:00 06/24/25 07:58 Guaifenesin 12 Hr 600 Mg Tabcr PO 600 mg Q12HR ROSE MARY Administration Hydroxyzine HCl 25 mg 06/23/25 20:48 06/24/25 06:37 Hydroxyzine Hcl 25 Mg Tablet PO 25 mg TID PRN Administration anxiety Dextrose 1,000 mls @ 100 mls/hr 06/22/25 15:39 Dextrose 5% 1,000 Ml IVPB PRN PRN Hypoglycemia Protocol Doxycycline Hyclate 100 mg/ 100 mls @ 100 mls/hr 06/22/25 16:00 06/24/25 04:20 Sodium Chloride IVPB 06/27/25 04:59 Infused Q12H ROSE MARY Infusion Levofloxacin/Dextrose 750 mg in 150 mls @ 100 mls/hr 06/23/25 15:00 06/23/25 17:55 Levaquin 750 Mg/D5w 150 Ml IVPB Infused Q48H ROSE MARY Infusion Metronidazole 500 mg in 100 mls @ 100 mls/hr 06/23/25 14:15 06/24/25 07:54 Flagyl 500 Mg/Iso Soln 100 Ml IVPB Infused Q8HR ROSE MARY Infusion Vancomycin HCl 1,500 mg in 500 mls @ 250 mls/hr 06/24/25 18:00 Vancomycin 1,500 Mg/Ns 500 Ml IVPB Q24H ROSE MARY Ipratropium [place] 0.5 mg 06/22/25 20:00 06/24/25 08:43 Ipratropium Br 0.02% Inh Soln 0.5 Mg/2.5 Ml Vial INHALATION 0.5 mg Q6HRT ROSE MARY Administration Levalbuterol HCl 1.25 mg 06/22/25 20:00 06/24/25 08:42 Levalbuterol Neb 1.25 Mg/3 Ml INHALATION 1.25 mg Q6HRT ROSE MARY Administration Losartan Potassium 25 mg 06/22/25 17:00 06/24/25 07:58 Losartan Potassium 25 Mg Tablet PO 25 mg BID ROSE MARY Administration Nitroglycerin 0.4 mg 06/22/25 15:39 Nitroglycerin Sl 0.4 Mg Tablet SUBLINGUAL Q5MIN PRN Chest Pain Prednisone 40 mg 06/23/25 08:00 06/24/25 07:57 Prednisone 20 Mg Tablet PO 06/27/25 08:01 40 mg DAILY@0800 ROSE MARY Administration Risperidone 1 mg 06/22/25 17:00 06/24/25 07:58 Risperidone 1 Mg Tablet PO 1 mg TID ROSE MARY Administration Rivaroxaban 20 mg 06/22/25 17:00 06/23/25 16:19 Rivaroxaban 20 Mg Tablet PO 20 mg DAILY@1700 ROSE MARY Administration Simvastatin 20 mg 06/22/25 21:00 06/23/25 21:39 Simvastatin 20 Mg Tablet PO 20 mg HS ROSE MARY Administration Vitamin D 50 mcg 06/23/25 09:00 06/24/25 07:57 Cholecalciferol (Vitamin D3) 25 Mcg (1,000 Units) Tablet PO 50 mcg DAILY ROSE MARY Administration Radiology Results: ITS Impressions Chest X-Ray 06/23/25 11:16 IMPRESSION: 1. Worsening right upper lobe airspace disease or pneumonia. 2. Worsening interstitial pulmonary edema. 3. Persistent pleural effusions and bibasilar atelectasis Head CT 06/23/25 12:29 IMPRESSION: 1. No acute intracranial findings. Chest CT 06/23/25 18:21 IMPRESSION: Severe bilateral bronchopneumonia. Follow-up recommended to assess resolution. Labs Labs: Laboratory Results - last 24 hr 06/23/25 06/23/25 06/23/25 10:10 17:18 20:33 WBC RBC Hgb Hct MCV MCH MCHC RDW Plt Count MPV Immature Gran % (Auto) Neut % (Auto) Lymph % (Auto) [place] % (Auto) Eos % (Auto) Baso % (Auto) Lymph # (Auto) [place] # (Auto) Eos # (Auto) Baso # (Auto) Abs Immat Gran (auto) Absolute Neuts (auto) Absolute Nucleated RBC Nucleated RBC % Sodium 141 Potassium 3.3 L Chloride 110 H Carbon Dioxide 28 Anion Gap 3 L BUN 24 H Creatinine 1.02 H Estim Creat Clear Calc 43 Estimated GFR 53 L Glucose 154 H Calcium 9.0 Magnesium Total Bilirubin AST ALT Alkaline Phosphatase C-Reactive Protein NT-Pro-B Natriuret Pep Total Protein Albumin Procalcitonin 0.1 Nasal MRSA (PCR) Not detected 06/24/25 06/24/25 04:10 04:20 WBC 18.1 H RBC 4.06 L Hgb 11.8 L Hct 37.3 MCV 91.9 MCH 29.1 MCHC 31.6 L RDW 15.6 H Plt Count 238 MPV 11.1 H Immature Gran % (Auto) 0.8 H Neut % (Auto) 83.8 H Lymph % (Auto) 6.2 L [place] % (Auto) 9.1 H Eos % (Auto) 0.0 Baso % (Auto) 0.1 L Lymph # (Auto) 1.13 [place] # (Auto) 1.7 H Eos # (Auto) 0.0 Baso # (Auto) 0.0 Abs Immat Gran (auto) 0.14 H Absolute Neuts (auto) 15.2 H Absolute Nucleated RBC 0.000 Nucleated RBC % 0.0 Sodium 141 Potassium 3.6 Chloride 111 H Carbon Dioxide 26 Anion Gap 4 BUN 28 H Creatinine 1.01 H Estim Creat Clear Calc 44 Estimated GFR 54 L Glucose 133 H Calcium 8.7 Magnesium 2.3 Total Bilirubin 0.5 AST 18 ALT 12 Alkaline Phosphatase 52 C-Reactive Protein 13.0 H NT-Pro-B Natriuret Pep 2770 H Total Protein 6.6 Albumin 3.8 Procalcitonin 0.1 Nasal MRSA (PCR)
[2025-06-24] MEDS: METOPROLOL TARTRATE 50 MG TAB PO ×2 (10:23→20:18)
--- NOTE | 2025-06-24 10:29 | PM.IMPN2 ---
Assessment and Plan Assessment and Plan (1) COPD (chronic obstructive pulmonary disease): Qualifiers: COPD type: unspecified COPD Qualified Code(s): J44.9 - Chronic obstructive pulmonary disease, unspecified Code(s): J44.9 - Chronic obstructive pulmonary disease, unspecified Status: Chronic Assessment and Plan: New shortness of breath, chronic dry cough that initially improved with nebulizer in the ED on 06 17. However has been progressively more short of breath since then. Admitted on 06/22. Initial evaluation in the ED showed diffuse expiratory wheezing, new O2 requirement, and tachypnea. Modestly improved with nebulizers. - continue levalbuterol/HR vent scheduled - prednisone 40 mg daily x5 days, given Solu-Medrol in the ED initially - start ceftriaxone and doxycycline on 06/22, allergy to erythromycin - Mucinex yudelka - continue supplemental O2 to maintain O2 sat greater than 92%, currently requiring 3L NC. No baseline requirement. (2) Atrial fibrillation with rapid ventricular response: Code(s): I48.91 - Unspecified atrial fibrillation Status: Acute Assessment and Plan: Patient arrived in NSR. Post multiple breathing treatments she developed AFib RVR, has history of AFib. Minimal response with metoprolol 5 mg IV x2. Given home metoprolol dose orally. Remains in the 120s, intermittently in the 150s. If no improvement with third dose of IV metoprolol, will transition to IV diltiazem. - admission to IMU - telemetry monitoring - IV metoprolol, if no improvement then transition to IV diltiazem with gtt and cardiology consult. hold home metoprolol. >> no improvement, orders placed - TSH reviewed, 1.44 on 02/23/2025 - continue Xarelto (3) Acute exacerbation of CHF (congestive heart failure): Qualifiers: Heart failure type: diastolic Qualified Code(s): I50.33 - Acute on chronic diastolic (congestive) heart failure Code(s): I50.9 - Heart failure, unspecified Status: Acute Assessment and Plan: CXR concerning for small bilateral pleural effusions with vascular changes which may represent mild vascular congestion or atypical inflammatory/infectious process. Denies any new peripheral edema or weight gain, does report she is at 3 lb of weight gain over the past few months however does not feel it is fluid related. Last echo on file in 2022 which showed EF of 55-60%, diastolic dysfunction, LV wall thickness increased, LA chamber moderately enlarged, mild pulmonary hypertension, trivial pericardial effusion. - update echo - monitor I&Os daily weights - s/p IVF, now on Lasix 40mg daily (4) Elevated troponin: Code(s): R79.89 - Other specified abnormal findings of blood chemistry Status: Acute Assessment and Plan: Likely type 2 given new hypoxia. Was 86% on room air due to COPD exacerbation. Troponin currently downtrending. No reports of chest pain. Does have some chest tightness with exertion, however shortness of breath significantly worsens with exertion as well. Now additionally in AFib RVR secondary to nebulizer treatments. EKG reviewed, no significant ST depressions or elevations. PACs and PVCs now present when compared to previous. - trend troponin - SL nitro p.r.n. (5) Hypertension: Qualifiers: Hypertension type: primary hypertension Qualified Code(s): I10 - Essential (primary) hypertension Code(s): I10 - Essential (primary) hypertension Status: Chronic Assessment and Plan: - chronic, currently 157/53, stable. - continue home medications: Losartan 25 mg b.i.d.. Holding metoprolol, see above. - monitor (6) Diabetes mellitus: Qualifiers: Diabetes mellitus type: type 2 Diabetes mellitus superintendent container terminal insulin use: without superintendent container terminal use Diabetes mellitus complication status: without complication Qualified Code(s): E11.9 - Type 2 diabetes mellitus without complications Code(s): E11.9 - Type 2 diabetes mellitus without complications Status: Chronic Assessment and Plan: Diet controlled. Last A1c 5.9% on 03/27/2025. - hypoglycemia protocol p.r.n. Plan Acute hypoxemic respiratory failure on HFNC Severe bilateral bronchopneumonia, CT chest reviewed CXR showed bilateral infiltrates MRSA negative Lasix, Levaquin, Flagyl titrate oxygen monitor Pulmonology following Diet: Heart healthy GI Prophylaxis: N/a DVT Prophylaxis: Xarelto IV fluids: 2L bolus Lines/Tubes: pIV Code Status: Full code Subjective Date/time seen: 06/24/25 10:29 Interval history: Comfortable at bedside Review of Systems Review of Systems: All systems reviewed & are unremarkable except as noted in HPI and below Exam Const: General: comfortable and no acute distress Other: , female, elderly, nontoxic appearance HENMT: Face/Nose/Sinus: Normal nares present Mouth: Yes moist mucous membranes Eyes: General: appearance normal, both eyes and all related structures Sclera: sclerae normal Pupils: Equal, round and reactive pupils present EOM: EOMs intact bilaterally Resp: Other: Faint expiratory wheeze, mild tachypnea (ambulated to the restroom just prior to exam). No crackles appreciated. Cardio: Rate: tachycardic Rhythm: abnormal rhythm (Consistent with AFib) Other: S1-S2 present without murmur, rub, ectopy GI: Other: Abdomen soft, nondistended, nontender. Normoactive bowel sounds in all quadrants. Skin: General skin exam: normal color and no rashes or lesions noted Wounds: no wounds Neuro: Cranial nerves: Yes Equal, round and reactive pupils present Speech: normal speech Motor exam (neuro): 5/5 motor strength present throughout Sensory Exam: normal sensation Other: A&O x4 Extrem: Other: Trace edema to the bilateral ankles, symmetric and nonpitting Psych: Mental Status: mental status grossly normal Affect: normal affect Other: Good insight and judgment. Objective Data Vital Signs Vital Signs: Vital Signs - 24 hr 06/23/25 11:26 06/23/25 11:35 06/23/25 12:00 Temperature 98.3 F Pulse Rate 92 101 H 101 H Respiratory Rate 22 H Blood Pressure 122/65 122/65 122/65 Pulse Oximetry 90 Oxygen Delivery Oxygen Flow Rate Fraction of Inspired Oxygen 06/23/25 12:00 06/23/25 12:00 06/23/25 13:10 Temperature Pulse Rate 88 98 Respiratory Rate Blood Pressure 148/54 H Pulse Oximetry 90 Oxygen Delivery Nasal Cannula Oxygen Flow Rate 10 Fraction of Inspired Oxygen 06/23/25 13:15 06/23/25 13:15 06/23/25 13:20 Temperature Pulse Rate 110 H Respiratory Rate 22 H Blood Pressure Pulse Oximetry 94 95 Oxygen Delivery High Flow Therapy with Na High Flow Therapy with Na Oxygen Flow Rate 50 50 Fraction of Inspired Oxygen 70 70 06/23/25 13:21 06/23/25 14:00 06/23/25 14:00 Temperature Pulse Rate 98 102 H Respiratory Rate 22 H Blood Pressure Pulse Oximetry 95 Oxygen Delivery High Flow Therapy with Na Oxygen Flow Rate 45 Fraction of Inspired Oxygen 80 06/23/25 15:27 06/23/25 16:00 06/23/25 16:00 Temperature 98.0 F Pulse Rate 104 H 102 H Respiratory Rate 22 H Blood Pressure 140/59 L Pulse Oximetry 96 96 Oxygen Delivery High Flow Therapy with Na Oxygen Flow Rate 40 Fraction of Inspired Oxygen 75 06/23/25 18:00 06/23/25 20:00 06/23/25 20:00 Temperature 97.4 F L Pulse Rate 105 H 99 104 H Respiratory Rate 24 H Blood Pressure 123/51 L Pulse Oximetry 97 Oxygen Delivery Oxygen Flow Rate Fraction of Inspired Oxygen 06/23/25 20:08 06/23/25 20:12 06/23/25 20:20 Temperature Pulse Rate 99 84 Respiratory Rate 20 20 Blood Pressure Pulse Oximetry 92 Oxygen Delivery Oxygen Flow Rate 45 Fraction of Inspired Oxygen 80 06/23/25 21:22 06/23/25 22:00 06/24/25 00:00 Temperature 97.5 F L Pulse Rate 99 127 H 130 H Respiratory Rate 24 H 24 H Blood Pressure 116/80 Pulse Oximetry 97 100 Oxygen Delivery High Flow Therapy with Na Oxygen Flow Rate 40 Fraction of Inspired Oxygen 81 06/24/25 00:00 06/24/25 00:25 06/24/25 01:26 Temperature Pulse Rate 110 H 130 H 117 H Respiratory Rate 24 H 20 Blood Pressure Pulse Oximetry 100 Oxygen Delivery High Flow Therapy with Na Oxygen Flow Rate 40 Fraction of Inspired Oxygen 81 06/24/25 01:29 06/24/25 01:35 06/24/25 02:00 Temperature Pulse Rate 115 H 120 H 110 H Respiratory Rate 20 20 Blood Pressure Pulse Oximetry 100 Oxygen Delivery High Flow Therapy with Na Oxygen Flow Rate 45 Fraction of Inspired Oxygen 80 06/24/25 04:00 06/24/25 04:00 06/24/25 04:00 Temperature 98 F Pulse Rate 123 H 120 H 120 H Respiratory Rate 24 H 24 H Blood Pressure 121/83 Pulse Oximetry 98 98 Oxygen Delivery High Flow Therapy with Na Oxygen Flow Rate 40 Fraction of Inspired Oxygen 67 06/24/25 06:00 06/24/25 08:00 06/24/25 08:00 Temperature 98.2 F Pulse Rate 113 H 147 H Respiratory Rate 24 H Blood Pressure 147/87 H Pulse Oximetry 90 98 Oxygen Delivery High Flow Therapy with Na Oxygen Flow Rate 40 Fraction of Inspired Oxygen 67 06/24/25 08:00 06/24/25 08:43 06/24/25 08:47 Temperature Pulse Rate 153 H 132 H 128 H Respiratory Rate 24 H 20 Blood Pressure Pulse Oximetry 97 Oxygen Delivery High Flow Therapy with Na Oxygen Flow Rate 40 Fraction of Inspired Oxygen 60 06/24/25 09:05 06/24/25 10:23 Temperature Pulse Rate 130 H 123 H Respiratory Rate 24 H Blood Pressure Pulse Oximetry Oxygen Delivery Oxygen Flow Rate Fraction of Inspired Oxygen Intake/Output Intake/Output: Intake & Output 06/21/25 06/22/25 06/23/25 06/24/25 23:59 23:59 23:59 23:59 Intake Total 2485.1 2079.9 500 Output Total 0 1700 650 Balance 2485.1 379.9 -150 Meds/Results Medications: Active Medications Generic Name Dose Route Start Last Admin Trade Name Freq PRN Reason Stop Dose Admin Acetaminophen 650 mg 06/22/25 14:49 06/23/25 21:40 Acetaminophen 325 Mg Tablet PO 650 mg Q4H PRN Administration Mild Pain (1-3) or Fever Hydrocodone Bitart/Acetaminophen 1 tab 06/23/25 08:08 06/24/25 07:56 Hydrocodone/Acetaminophen (*Crx) 5-325 Mg Tablet PO 1 tab Q8H PRN Administration Pain Benzonatate 100 mg 06/22/25 16:14 06/24/25 06:37 Benzonatate 100 Mg Capsule PO 100 mg TID PRN Administration Cough Budesonide 0.5 mg 06/23/25 08:00 06/24/25 08:42 Budesonide Respule Neb 0.5 Mg/2 Ml Amp INHALATION 0.5 mg DAILYRT YUDELKA Administration Dextrose 12.5 gm 06/22/25 15:39 Dextrose 50% 25 Gm/50 Ml Syringe IV PUSH PRN PRN Hypoglycemia Protocol Diltiazem HCl 60 mg 06/23/25 15:00 06/24/25 07:57 Diltiazem Hcl 60 Mg Tablet PO 60 mg Q6H YUDELKA Administration Duloxetine HCl 60 mg 06/22/25 17:00 06/24/25 07:57 Duloxetine Hcl 60 Mg Capsule.Dr PO 60 mg BID YUDELKA Administration Furosemide 40 mg 06/24/25 17:00 Furosemide 40 Mg Tablet PO DAILY YUDELKA Gabapentin 800 mg 06/22/25 17:00 06/24/25 07:57 Gabapentin 400 Mg Capsule PO 800 mg QID YUDELKA Administration Glucagon 1 mg 06/22/25 15:39 Glucagon For Inj 1 Mg Vial IM PRN PRN Hypoglycemia Protocol Glucose 15 gm 06/22/25 15:39 Glucose Oral Gel 15 Gm Of Glucse In 37.5 Gm Tube PO PRN PRN Hypoglycemia Protocol Guaifenesin 600 mg 06/22/25 21:00 06/24/25 07:58 Guaifenesin 12 Hr 600 Mg Tabcr PO 600 mg Q12HR YUDELKA Administration Hydroxyzine HCl 25 mg 06/23/25 20:48 06/24/25 06:37 Hydroxyzine Hcl 25 Mg Tablet PO 25 mg TID PRN Administration anxiety Dextrose 1,000 mls @ 100 mls/hr 06/22/25 15:39 Dextrose 5% 1,000 Ml IVPB PRN PRN Hypoglycemia Protocol Doxycycline Hyclate 100 mg/ 100 mls @ 100 mls/hr 06/22/25 16:00 06/24/25 04:20 Sodium Chloride IVPB 06/27/25 04:59 Infused Q12H YUDELKA Infusion Levofloxacin/Dextrose 750 mg in 150 mls @ 100 mls/hr 06/23/25 15:00 06/23/25 17:55 Levaquin 750 Mg/D5w 150 Ml IVPB Infused Q48H YUDELKA Infusion Metronidazole 500 mg in 100 mls @ 100 mls/hr 06/23/25 14:15 06/24/25 07:54 Flagyl 500 Mg/Iso Soln 100 Ml IVPB Infused Q8HR YUDELKA Infusion Vancomycin HCl 1,500 mg in 500 mls @ 250 mls/hr 06/24/25 18:00 Vancomycin 1,500 Mg/Ns 500 Ml IVPB Q24H YUDELKA Ipratropium [place] 0.5 mg 06/22/25 20:00 06/24/25 08:43 Ipratropium Br 0.02% Inh Soln 0.5 Mg/2.5 Ml Vial INHALATION 0.5 mg Q6HRT YUDELKA Administration Losartan Potassium 25 mg 06/22/25 17:00 06/24/25 07:58 Losartan Potassium 25 Mg Tablet PO 25 mg BID YUDELKA Administration Metoprolol Tartrate 50 mg 06/24/25 10:05 06/24/25 10:23 Metoprolol Tartrate 50 Mg Tab PO 50 mg Q12HR YUDELKA Administration Nitroglycerin 0.4 mg 06/22/25 15:39 Nitroglycerin Sl 0.4 Mg Tablet SUBLINGUAL Q5MIN PRN Chest Pain Prednisone 40 mg 06/23/25 08:00 06/24/25 07:57 Prednisone 20 Mg Tablet PO 06/27/25 08:01 40 mg DAILY@0800 YUDELKA Administration Risperidone 1 mg 06/22/25 17:00 06/24/25 07:58 Risperidone 1 Mg Tablet PO 1 mg TID YUDELKA Administration Rivaroxaban 20 mg 06/22/25 17:00 06/23/25 16:19 Rivaroxaban 20 Mg Tablet PO 20 mg DAILY@1700 YUDELKA Administration Simvastatin 20 mg 06/22/25 21:00 06/23/25 21:39 Simvastatin 20 Mg Tablet PO 20 mg HS YUDELKA Administration Vitamin D 50 mcg 06/23/25 09:00 06/24/25 07:57 Cholecalciferol (Vitamin D3) 25 Mcg (1,000 Units) Tablet PO 50 mcg DAILY YUDELKA Administration Radiology Results: ITS Impressions Chest X-Ray 06/23/25 11:16 IMPRESSION: 1. Worsening right upper lobe airspace disease or pneumonia. 2. Worsening interstitial pulmonary edema. 3. Persistent pleural effusions and bibasilar atelectasis Head CT 06/23/25 12:29 IMPRESSION: 1. No acute intracranial findings. Chest CT 06/23/25 18:21 IMPRESSION: Severe bilateral bronchopneumonia. Follow-up recommended to assess resolution. Labs Labs: Laboratory Results - last 24 hr 06/23/25 06/23/25 06/23/25 10:10 17:18 20:33 WBC RBC Hgb Hct MCV MCH MCHC RDW Plt Count MPV Immature Gran % (Auto) Neut % (Auto) Lymph % (Auto) [place] % (Auto) Eos % (Auto) Baso % (Auto) Lymph # (Auto) [place] # (Auto) Eos # (Auto) Baso # (Auto) Abs Immat Gran (auto) Absolute Neuts (auto) Absolute Nucleated RBC Nucleated RBC % Sodium 141 Potassium 3.3 L Chloride 110 H Carbon Dioxide 28 Anion Gap 3 L BUN 24 H Creatinine 1.02 H Estim Creat Clear Calc 43 Estimated GFR 53 L Glucose 154 H Calcium 9.0 Magnesium Total Bilirubin AST ALT Alkaline Phosphatase C-Reactive Protein NT-Pro-B Natriuret Pep Total Protein Albumin Procalcitonin 0.1 Nasal MRSA (PCR) Not detected 06/24/25 06/24/25 04:10 04:20 WBC 18.1 H RBC 4.06 L Hgb 11.8 L Hct 37.3 MCV 91.9 MCH 29.1 MCHC 31.6 L RDW 15.6 H Plt Count 238 MPV 11.1 H Immature Gran % (Auto) 0.8 H Neut % (Auto) 83.8 H Lymph % (Auto) 6.2 L [place] % (Auto) 9.1 H Eos % (Auto) 0.0 Baso % (Auto) 0.1 L Lymph # (Auto) 1.13 [place] # (Auto) 1.7 H Eos # (Auto) 0.0 Baso # (Auto) 0.0 Abs Immat Gran (auto) 0.14 H Absolute Neuts (auto) 15.2 H Absolute Nucleated RBC 0.000 Nucleated RBC % 0.0 Sodium 141 Potassium 3.6 Chloride 111 H Carbon Dioxide 26 Anion Gap 4 BUN 28 H Creatinine 1.01 H Estim Creat Clear Calc 44 Estimated GFR 54 L Glucose 133 H Calcium 8.7 Magnesium 2.3 Total Bilirubin 0.5 AST 18 ALT 12 Alkaline Phosphatase 52 C-Reactive Protein 13.0 H NT-Pro-B Natriuret Pep 2770 H Total Protein 6.6 Albumin 3.8 Procalcitonin 0.1 Nasal MRSA (PCR) Quality VTE Prophylaxis VTE prophylaxis: pharmacologic ordered
[2025-06-24 10:30] LABS: Influenza A QL RT-PCR Negative (Negative); Influenza B QL RT-PCR Negative (Negative); RSV RNA, RT-PCR Negative (Negative); SARS-CoV-2 RNA PCR Negative (Negative)
[2025-06-24 10:57] LABS: Alveolar/Arterial O2 Gradient 324.2 mmHg; Fractional Inspired Oxygen 60 %; HCO3 ABG 25.4 mEq/l (22.0-26.0); Oxygen Content ABG 16.0 %vol (16.0-22.0); PCO2 ABG 45.2 mmHg (35.0-45.0); PO2 ABG 53.9 mmHg (80.0-100.0); PO2 FiO2 Ratio Arterial Blood 0.90 %
[2025-06-24 11:06] LABS: Oxygen Saturation ABG 86.9 % (95.0-100.0)
[2025-06-24 11:07] LABS: Liters per Minute 10.0 LPM; Modified Allen's Test Pass; Site Drawn RIGHT RADIAL
[2025-06-24] MEDS: ACETAMINOPHEN 325 MG TABLET 650 MG PO ×2 (12:53→20:18)
[2025-06-24] MEDS: RIVAROXABAN 20 MG TABLET PO (16:33)
[2025-06-24] MEDS: FUROSEMIDE 40 MG TABLET PO (16:43)
[2025-06-24] MEDS: SIMVASTATIN 20 MG TABLET PO (20:17)
[2025-06-24] MEDS: guaiFENesin 12 HR 600 MG TABCR 1200 MG PO (20:17)
[2025-06-25] VITALS (22 sets, daily range): BP systolic 119–179; BP diastolic 61–101; PULSE 69–147; RESP 17–26; TEMP 36.8–37.4; O2SAT 91–98
[2025-06-25] MEDS: BENZONATATE 100 MG CAPSULE PO ×2 (00:13→21:11)
[2025-06-25] MEDS: IPRATROPIUM BR 0.02% INH SOLN 0.5 MG/2.5 ML VIAL INHALATION ×6 (03:57→22:59)
[2025-06-25] MEDS: DOXYCYCLINE IV 100 MG in SODIUM CHLORIDE 0.9% IV 100 ML IVPB ×2 (04:00→16:41)
[2025-06-25 04:27] LABS: Hematocrit 37.1 % (37.0-47.0); Hemoglobin 11.7 g/dL (12.0-15.0); Immature Granulocyte Percent A 0.6 % (0-0.5); Lymphocytes Absolute Auto 1.65 K/mm3 (0.9-3.2); Mean Corpuscular HGB Conc 31.5 g/dl (32-36); Mean Corpuscular Hemoglobin 29.3 pg (26-34); Mean Corpuscular Volume 93.0 fl (80-100); Nucleated Red Blood Cells Absolute Auto 0.000 K/mm3 (0.0-0.012); Nucleated Red Blood Cells Perc 0.0 % (0.0-0.2); Platelet Count Result 272 k/mm3 (150-375); Red Blood Count 3.99 M/mm3 (4.2-5.4); White Blood Count 16.2 K/mm3 (4.5-10.0)
[2025-06-25] MEDS: metroNIDAZOLE 500 MG/ISO 100ML 500 MG/100 ML BAG 100 MG IVPB (05:40)
[2025-06-25 06:02] LABS: Alanine Aminotransferase 13 U/L (6-35); Albumin Level 3.5 g/dL (3.5-5.1); Alkaline Phosphatase 51 U/L (38-126); Anion Gap 3 mmol/L (4-12); Aspartate Amino Transferase 27 U/L (14-36); Bilirubin,Total 0.4 mg/dL (0.2-1.3); Blood Urea Nitrogen 36 mg/dL (7-17); Calcium 9.2 mg/dL (8.4-10.2); Carbon Dioxide 30 mmol/L (22-30); Chloride 112 mmol/L (98-107); Estimated CRCL calculation 45 ml/min; Estimated Glomerular Filt Rate 53; Glucose 117 mg/dL (65-110); Magnesium 2.3 mg/dL (1.6-2.3); Potassium 3.5 mmol/L (3.4-5.0); Sodium 145 mmol/L (137-145); Total Protein 6.5 g/dL (6.3-8.2)
[2025-06-25] MEDS: BUDESONIDE RESPULE NEB 0.5 MG/2 ML AMP INHALATION ×2 (08:01→19:10)
[2025-06-25] MEDS: guaiFENesin 12 HR 600 MG TABCR 1200 MG PO ×2 (08:34→21:11)
[2025-06-25] MEDS: FUROSEMIDE 40 MG TABLET PO (08:36)
[2025-06-25] MEDS: CHOLECALCIFEROL (VITAMIN D3) 25 MCG (1,000 UNITS) TABLET 50 MCG PO (08:36)
[2025-06-25] MEDS: HYDROcodone/acetaminophen (*CRX) 5-325 MG TABLET 1 TAB PO ×2 (08:36→18:01)
[2025-06-25] MEDS: DULoxetine HCL 60 MG CAPSULE.DR PO ×2 (08:36→18:02)
[2025-06-25] MEDS: LOSARTAN POTASSIUM 25 MG TABLET PO ×2 (08:36→18:02)
[2025-06-25] MEDS: GABAPENTIN 400 MG CAPSULE 800 MG PO ×4 (08:37→21:10)
[2025-06-25] MEDS: METOPROLOL TARTRATE 50 MG TAB PO ×2 (08:39→21:11)
--- NOTE | 2025-06-25 08:43 | PC.NURSE ---
patient heart rate in the 170's when getting up and back to bed at approximatly 0825.. Anita Sanchez EPIC SPECIALIST notified and this nurse was given new orders for metoprolol and diltiazem. Patient now resting in bed. BP at the time of the call was 170/100. Patient now has a heart rate of 145.
--- NOTE | 2025-06-25 08:59 | PM.PNPUL ---
Progress Note: A&P Assessment and Plan (1) Abnormal PFT: Code(s): R94.2 - Abnormal results of pulmonary function studies Status: Acute Assessment and Plan: PFTs on 12/12/2024 demonstrate Preserved Ratio Impaired Spirometry (PRISm) with a normal FVC. she has a 5 pack year tobacco history and is currently smoking [address] scan of the chest shows no significant bullous emphysema. She has no bronchodilator response. The plan in the Pulmonary Clinic was to give her therapeutic trial of bronchodilators to see if this gave her clinical benefit. PFT showed PRISm which indicates early airflow obstruction. People with PRISm may have increased respiratory symptoms despite not meeting formal criteria for COPD. This may progress to a restrictive or obstructive process and can be associated with increased cardiovascular and all cause mortality in some studies. 06/24/2025: Patient tells me she has improved. She has 50% back to her normal. Her cough is essentially resolved. She denies phlegm or hemoptysis. She has no wheezing. When I enter the room she was on Airvo 40 L, 66% FiO2 with saturations 96%. The placed her on 15 L nasal cannula and sequentially decreased her to 10 L nasal cannula saturations 93%. Clinically she had no change when I switched her to nasal cannula oxygen. White blood cell count 18.1, creatinine 1.01. Procalcitonin unchanged from 0.1 on 06/23/2025 20.1 today. CRP today 13.0. BNP has improved from 3630 on 06/22/2025 to 2770 today. she has been diuresed with Lasix 40 IV b.i.d.. Yesterday she was positive 379 mL. Cumulative she is positive 2.7 L since admission. Her heart rate was AFib 130-140 and I have discontinue levalbuterol. ABG on 10 L nasal cannula 7.37/45/54. There is no evidence of hypercarbic respiratory failure. Plan: Patient currently has no wheezing and given her uncontrolled atrial fibrillation with RVR, I will discontinue levalbuterol. I will initiate ipratropium nebulizers q.4 hours and increase budesonide nebulizer 0.5 mg b.i.d. In case she has reactive airways disease. Given major concern is for bronchopneumonia I will discontinue prednisone today. She has received 3 days of systemic steroids. 06/25/2025: Patient said she did well yesterday and slept well through the night. This morning she had gotten up to the chair and her heart rate increased to 170 and she had worsening shortness of breath. She denies any current cough, phlegm or hemoptysis. Currently she is on 10 L nasal cannula with saturation 96%. Her heart rate is 150-175 irregularly irregular. White blood cell count 16.2, creatinine 1.03 yesterday she was -500 mL. Cumulative she is positive 2.0 L since admission. Her weight today is 90.2. 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 Plan: Overall patient thought her breathing was doing better yesterday. Continue treatment for pneumonia, AFib RVR with fluid overload. Today her AFib with RVR is uncontrolled. She remains on 10 L with saturations 96%. I will not try to decrease the oxygen as she is having shortness of breath with her AFib RVR. Continue treatment for pneumonia, AFib RVR with fluid overload, Discussed with , will follow with you. (2) Pneumonia: Qualifiers: Laterality: bilateral Lung location: unspecified part of lung Pneumonia type: due to unspecified organism Qualified Code(s): J18.9 - Pneumonia, unspecified organism Code(s): J18.9 - Pneumonia, unspecified organism Status: Acute Assessment and Plan: Patient presents with worsening respiratory symptoms, no leukocytosis, afebrile, COVID influenza RSV RT PCR assay negative, MRSA swab negative, chest x-ray with small effusions and congestion and a CT scan with bilateral infiltrates. CT scan of the chest 06/23/2025 compared to 05/06/2025 shows new bilateral upper lobe infiltrates right greater than left small medial segment of the right middle lobe infiltrate lingular infiltrates with very small left pleural effusion. These ground-glass infiltrates are new since 05/06/2025 there is no evidence of chronic interstitial lung disease, bullous emphysema, nodules or masses. ceftriaxone x1 dose 06/22 Plan: I will discontinue vancomycin. I am no evidence for anaerobic lung infection will discontinue metronidazole. Will continue levofloxacin 750 mg Q 48 hours and doxycycline 100 q.12. I will send a repeat COVID influenza RSV RT PCR assay. I will send respiratory pathogen panel, urine for Legionella antigen, urine for pneumococcal antigen and serum for mycoplasma IgM. COVID, influenza, RSV RT PCR assay negative 06/22 and 06/24. Respiratory pathogen panel, urine for Legionella antigen, urine for pneumococcal antigen and serum mycoplasma IgM pending 06/25/2025: Patient was improving 3 yesterday. Afebrile, White blood cell count 16.2, she has no cough, phlegm or hemoptysis. Plan: Continue treatment for pneumonia with doxycycline started 06/22/2025, day 4 and l levofloxacin started 06/23/2025. Status post ceftriaxone x1 dose on 06/22/2025. Status post vancomycin 1 dose on 06/23/2025. Status post Flagyl 06/23 through 06/25 AFib RVR with fluid overload, (3) Acute exacerbation of CHF (congestive heart failure): Qualifiers: Heart failure type: diastolic Qualified Code(s): I50.33 - Acute on chronic diastolic (congestive) heart failure Code(s): I50.9 - Heart failure, unspecified Status: Acute Assessment and Plan: Patient with fluid overload and AFib with RVR. 06/24/25: BNP has improved from 3630 on 06/22/2025 to 2770 today. she has been diuresed with Lasix 40 IV b.i.d.. Yesterday she was positive 379 mL. Cumulative she is positive 2.7 L since admission. Her heart rate was AFib 130-14o Plan: Management per still runner and hospitalist teams. Recommended as aggressive diuresis as tolerated by patient's cardiac and renal systems. I have discontinue levalbuterol. Patient has been switched to 40 mg p.o. q.day start time 5:00 p.m.. 06/25/25: This morning she had gotten up to the chair and her heart rate increased to 170 and she had worsening shortness of breath. creatinine 1.03 yesterday she was -500 mL. Cumulative she is positive 2.0 L since admission. Her weight today is 90.2. 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 Plan: Management per still runner and hospitalist team. Currently on Lasix 40 q.day. Subjective Date/time seen: 06/25/25 08:59 Interval history: 06/24/2025: This is a new pulmonary consult for respiratory failure. 74-year-old with a history of CHF, DM, HTN, GERD, HLD, COPD patient is followed in the Pulmonary Clinic in last seen on 04/02/2025: This is note and plan. 3 month follow-up regarding coughing. Hx: CHF, DM, HTN, GERD, HLD, COPD. Sees [facility] cardiology. She was hospitalized last month 02/22/25 from 02/25 regarding afib RVR, NAT, CHF, and pneumonia. CXR showed confluent opacity in the lower 3rd of the left hemithorax which is a slightly increased in size, small patchy opacities in the right lower lung. CTA of the chest showed a few small ground-glass and patchy opacities in both lungs more prominent in the lower lungs, small left pleural effusion, tiny right pleural effusion, several low-density indeterminate lesions scattered throughout the liver, indeterminate 2.3 cm left adrenal nodule. She was tx with abx for PNA, Cardizem gtt for afib, fluid bolus for NAT, and Lasix for CHF. She went to the ER 3 days after discharge as the metoprolol dose was increased prior and she was having lightheadedness, heart racing, and low BP. Chest x-ray showing likely a small pleural effusion on the left. Recommended follow-up with cardiology. Prior to her hospitalization, she called our office c/o dyspnea, dry coughing, and wheezing. CXR showed Bibasilar infiltrates may represent atelectasis or pneumonia. No significant change. Small pleural effusions. She was tx with doxycycline on 02/12. Today she reports improvement in symptoms since discharge. HAMMER is better and she is not coughing as much as she previously did. Tessalon Perles seem to help. She was to be setup on nebulizer with Duonebs last visit. However she reports she never got it. She has been using her rescue inhaler 2x/day which she feels helps. She reports unchanged symptoms of wheezing at times. Otherwise denies chest pains/tightness, fever, hemoptysis, or nighttime breathing issues. Current smoker 6 cigs/day. Smoker for 10 year 0.5ppd. Denies family hx of lung disease. Weight 175 lb room air saturations 95% plan: PFTs with prism. . Astepro did not help her coughing. Resend an order for nebulizer with DuoNebs p.r.n.. Pleural effusions: CT scan of the chest. 05/06/2025: CT scan of the chest with a very small left pleural effusion, discoid atelectasis anterior left lower lobe and minimal right dependent atelectasis in the right lower lobe. No emphysematous changes. No nodules or masses. 06/17/2025: Patient presented to the emergency room with dyspnea on exertion for 2-3 days, wheezing, room air saturations 95%. Chest x-ray with no acute abnormalities. Patient was diagnosed with bronchitis and treated with prednisone x5 days. Patient took this prednisone as prescribed but 1 day after finishing the prednisone she had worsening shortness of breath. 06/22/2025 patient presented to the emergency department with worsening shortness of breath, cough, wheezes the felt like worsening COPD exacerbation. Blood pressure 110/58, heart rate 81, respirations 22, room air saturations 86%. Patient was placed on 3 L nasal cannula saturations were 98%. She had diffuse wheezes. White blood cell count was 10.9, eosinophils 0.6%. BNP 3630. Creatinine 1.09. COVID influenza RSV RT PCR assay negative. Chest x-ray showed small effusions with congestion. She was given 2 L IV fluid, Solu-Medrol, Lasix 20 IV, ceftriaxone and doxycycline. MRSA swab was negative. 06/23/2025: Patient developed AFib RVR requiring IV metoprolol and IV diltiazem. She had worsening oxygenation requiring Airvo at 8:00 p.m. 45 L, 80% FiO2 with saturations 92%. Antibiotics were changed to vancomycin and Levaquin. Her MRSA swab was negative and vancomycin was discontinued. 06/24/2025: Patient tells me she has improved. She has 50% back to her normal. Her cough is essentially resolved. She denies phlegm or hemoptysis. She has no wheezing. When I enter the room she was on Airvo 40 L, 66% FiO2 with saturations 96%. The placed her on 15 L nasal cannula and sequentially decreased her to 10 L nasal cannula saturations 93%. Clinically she had no change when I switched her to nasal cannula oxygen. White blood cell count 18.1, creatinine 1.01. Procalcitonin unchanged from 0.1 on 06/23/2025 20.1 today. CRP today 13.0. BNP has improved from 3630 on 06/22/2025 to 2770 today. she has been diuresed with Lasix 40 IV b.i.d.. Yesterday she was positive 379 mL. Cumulative she is positive 2.7 L since admission. Her heart rate was AFib 130-140 and I have discontinue levalbuterol. 06/25/2025: Patient said she did well yesterday and slept well through the night. This morning she had gotten up to the chair and her heart rate increased to 170 and she had worsening shortness of breath. She denies any current cough, phlegm or hemoptysis. Currently she is on 10 L nasal cannula with saturation 96%. Her heart rate is 150-175 irregularly irregular. White blood cell count 16.2, creatinine 1.03 yesterday she was -500 mL. Cumulative she is positive 2.0 L since admission. Her weight today is 90.2. 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 FINDINGS: No significant coronary calcification is present ([id number]) LUNGS: Trace left pleural effusion. Trace right pleural effusion. No tracheomalacia. No bronchiectasis. Minimal emphysematous changes. Mild pulmonary fibrotic changes. There are bilateral areas of groundglass attenuation with infiltrates in the upper lobes bilaterally, the left lower lobe and the right lower lobe as well as the right middle lobe. Scattered micronodules are noted which are probably infectious. HEART AND PERICARDIUM: Mild cardiomegaly. Trace pericardial effusion. AORTA: Normal caliber aorta. ADENOPATHY/MEDIASTINUM: None. LIMITED VIEWS OF THE ABDOMEN: Complex appearing liver cysts the largest right lobe liver 1 x 1 cm. Right kidney renal calculi noted the largest mid pole 3 mm with partially imaged probable renal cyst 2 x 2 cm. Left kidney renal calculi the largest mid pole 2 mm. There is thickening of the adrenal glands bilaterally with left adrenal nodule 1 x 1 cm probable benign adrenal adenoma. Small hiatal hernia noted. OSSEOUS STRUCTURES: No acute osseous abnormality.No suspicious lesions. OVERLYING SOFT TISSUES: Unremarkable. THYROID: The thyroid is unremarkable. IMPRESSION: Severe bilateral bronchopneumonia. Follow-up recommended to assess resolution. 06/22/25: Echo Summary 1. Left ventricular systolic function is hyperdynamic, estimated at >70. 2. There is mildly increased left ventricular wall thickness. 3. The left ventricular diastolic function is abnormal. 4. Left atrial chamber dimension is mildly enlarged. 5. There is small pericardial effusion. 6. atrial fibrillation with RVR. Right Ventricle Right ventricular chamber dimension is normal. Right ventricular systolic function is normal. Left Atria Left atrial chamber dimension is mildly enlarged. Right Atria Right atrial chamber dimension is normal. No tricuspid regurg and no PASP calculated 05/06/25: EXAMINATION: CT diagnostic chest wo con INDICATION: J90 - Pleural effusion, not elsewhere classified COMPARISON: CT dated 02/22/2025 FINDINGS: Tiny left pleural effusion. Discoid atelectasis in the left upper lobe and lingula along the major fissure. Compressive atelectasis in the anterior basilar left lower lobe along side the enlarged heart discoid and basilar atelectasis in the right lower lobe and atelectasis at the posterior medial aspect of the right middle lobe. No pulmonary edema, pneumonia or right-sided pleural effusion. Atherosclerotic coronary artery calcification is. No pericardial effusion. Thoracic aorta is normal in caliber. No pathologically enlarged thoracic lymphadenopathy. Multiple scattered small bilateral nonobstructing renal stones the largest in the right kidney measuring 4-5 mm. 3.3 cm right renal cyst. There are also several smaller cysts in the liver measuring up to 1.4 cm. 1.5 cm low-attenuation left adrenal adenoma. Mild thoracic dextroscoliosis with moderate to severe spondylosis. T10 hemangioma. C5-C7 anterior spinal fusion with anterior plate and screw fixation.. IMPRESSION: 1. Very small left pleural effusion and scattered atelectasis in the left mid and bilateral lower lung zones. 2. Cardiomegaly. 3. Bilateral nonobstructing nephrolithiasis. 03/30/25: EXAMINATION: MR abdomen wo/w con INDICATION: Liver disease, unspecified. TECHNIQUE: Magnetic resonance imaging (MRI) of the abdomen was performed without and with 15 mL MultiHance intravenous contrast. COMPARISON: Abdomen MRI 01/18/2020 FINDINGS: Cardiomegaly is noted. No pericardial effusion. There is trace pleural effusions. There is diffuse hepatic steatosis. There are cysts in the liver measuring up to 11 mm. The gallbladder is absent. The common duct measures 12 mm in diameter, likely not clinically significant given the normal liver function tests on 03/27/2025. The spleen, pancreas, and right adrenal gland are normal. There is chronic thickening of left adrenal gland, likely benign. There are cysts in the kidneys measuring up to 3.8 cm on the right. There are no dilated loops of bowel. There are no pathologically enlarged lymph nodes. There is no free intraperitoneal fluid. IMPRESSION: 1. Diffuse hepatic steatosis. 02/22/2025: EXAMINATION: CTA chest PE protocol INDICATION: Palpitations. Atrial fibrillation. COMPARISON: 09/02/2017 FINDINGS: Cervical hardware. There is a mildly enlarged 1.4 cm subcarinal lymph node similar to the study from 09/02/2017. There are a few additional nonenlarged mediastinal and hilar lymph nodes. Several new low-density lesions scattered throughout the liver, the largest measures 1.5 cm in the right lobe of the liver. A Liver mass MRI is recommended. There is a too small to characterize low-attenuation lesion in the right kidney. Indeterminate 2.3 cm left adrenal nodule. An adrenal mass MRI is recommended. Heart is moderately enlarged. There are coronary artery calcifications. Thoracic aorta is not aneurysmal. Mild to moderate discredit disease in the thoracic aorta. Small left-sided pleural effusion. Bones appear osteopenic. Multilevel degenerative change in the visualized spine. Visualized tracheobronchial tree is patent. Tiny right-sided pleural effusion. Mild biapical scarring. There are a few small groundglass and patchy opacities in both lungs most prominent in the lower lobes. IMPRESSION: 1. There are a few small groundglass and patchy opacities in both lungs most prominent in the lower lobes. Differential includes but is not limited to atelectasis/scarring or infiltrates. 2. Small left-sided pleural effusion. Tiny right-sided pleural effusion. 3. Several new low-density indeterminate lesions scattered throughout the liver, the largest measures 1.5 cm in the right lobe of the liver. A Liver mass MRI is recommended. 4. Indeterminate 2.3 cm left adrenal nodule. An adrenal mass MRI is recommended. CXR 02/28/25 - Confluent opacity in the lower third of the left hemithorax. Differential includes a combination of pleural fluid with adjacent atelectasis and/or consolidation. An underlying mass is possible. Recommend follow-up to resolution. Consider a chest CT. Small patchy opacities in the right mid and lower lung. Differential includes metastasis/scarring or infiltrates. 12/12/2024: This is a pulmonary function test with pre and post-bronchodilator spirometry, plethysmography and diffusing capacity. The test was performed and results interpreted in accordance with the 2019 and 2005 ATS/ERS Task Force guidelines respectively using the Global Lung Function Initiative-2012 reference equations. Patient demonstrated good effort and cooperation. Reproducibility criteria were met. The quality of the pre bronchodilator spirometry maneuver was Grade A and post bronchodilator spirometry maneuver was Grade A. Findings: Spirometry: The contour the inspiratory and expiratory flow tracing are normal. The pre bronchodilator FVC is 1.90 L, 76% predicted. The pre bronchodilator FEV1 is 1.34 L, 69% predicted. The pre bronchodilator FEV1: FVC ratio 70%. The post bronchodilator FVC is 1.89 L, representing a 1% decrease. The post bronchodilator FEV1 is 1.37 L, representing a 3% increase. The post bronchodilator FEV1: FVC ratio is 73%. Plethysmography: The total lung capacity is 4.01 L, 87% predicted. The functional residual capacity is 2.42 L, 92% predicted. The residual volume is 2.12 L, 102% predicted. Diffusing capacity: The diffusing capacity unadjusted for hemoglobin and carboxyhemoglobin is 10.0, 53% predicted. The diffusing capacity adjusted for alveolar volume is 3.03, 69% predicted. Impression: The FEV1 is less than 80% predicted and the FEV1: FVC ratio is greater than the lower limit of normal consistent with Preserved Ratio Impaired Spirometry (PRISm) with a normal FVC. The spirometry is normal without evidence of an obstructive abnormality. There is no significant improvement after inhaling a single dose of albuterol. The lung volumes are normal. The diffusing capacity unadjusted for hemoglobin and carboxyhemoglobin is moderately decreased and remains mildly decreased when adjusted for alveolar volume. There are no prior studies for comparison 12/12/2024: This is a 6 minute walk test. The test was performed and interpreted in accordance with the 2014 ERS/ATS task force guidelines. Of note, the last 2 minutes the patient used to wheeled walker due to back pain. Findings: The patient's resting room air oxygen saturation measured by pulse oximetry was 95%, the heart rate was 90 bpm, and the modified Thanh dyspnea score was 0. Patient ambulated for 213 meters and oxygen saturation remained 91 to 94%. At the end of the study the heart rate was 112 bpm and the modified Thanh dyspnea score was 0. The patient did not qualify for supplemental oxygen at rest or with ambulation. CXR 09/29/24 - Small left pleural effusion is present. Possible minimal right pleural effusion. Echo 10/23/22 - EF 55-60%, left ventricular diastolic function is abnormal, mild pulmHTN RVSP 46mmHg. 10/22/2022: EXAMINATION: CTA chest PE protocol INDICATION: Chest pain, shortness of breath and elevated d-dimer. COMPARISON: CT dated 09/02/2017 and chest x-ray dated 11/08/2022. FINDINGS: Study is technically limited for evaluation of right upper lobe pulmonary arteries due to motion and contrast bolus timing. No large central pulmonary embolism. Cardiomegaly. Small pleural effusions. There is mediastinal lymphadenopathy, likely reactive. Patchy groundglass opacities involving the upper lobes and right lower lobe. There is dependent atelectasis. No endobronchial lesions. No pneumothorax. No evidence for aortic aneurysm or dissection. There are multiple low-density lesions in the liver, largest in the right hepatic lobe showing 1.5 cm, compatible with a cyst. There is nodular thickening of the adrenal glands, likely secondary to benign adenomas. Moderate thoracic spondylosis. Surgical fusion changes present in the lower cervical spine. 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 IMPRESSION: 1. Patchy groundglass opacities, most confluent in the right upper lobe, consistent with pneumonia. 2: No large central pulmonary embolism. 3: Mediastinal lymphadenopathy, likely reactive. 4: Small pleural effusions. Review of Systems Constitutional: Constitutional: Reports no additional constitutional complaints Eyes: Eyes: Reports no additional eye complaints ENT: Reports system reviewed and no additional complaints, except as documented Cardiovascular: Cardiovascular: Reports no additional cardiovascular complaints Respiratory: Respiratory: Reports no additional respiratory complaints Gastrointestinal: Gastrointestinal: Reports no additional gastrointestinal complaints Musculoskeletal: Musculoskeletal: Reports no additional musculoskeletal complaints Neurologic: Reports system reviewed and no additional complaints, except as documented Psychiatric: Psychiatric: Reports no additional psychiatric complaints Endocrine: Endocrine: Reports no additional endocrine complaints Hematologic/Lymphatic: Hematologic/Lymphatic: Reports no additional hematologic/lymphatic complaints Allergic/Immunologic: Allergic/Immunologic: Reports no additional allergic/immunologic complaints Exam Const: General: cooperative, healthy appearing and comfortable Orientation/consciousness: oriented to person, oriented to place and oriented to time HENMT: Head: normal to inspection Ears: hearing grossly normal bilaterally Eyes: General: appearance normal, both eyes and all related structures Neck: Neck: normal visual inspection Chest: Chest palpation & inspection: normal inspection of the chest Resp: Effort & Inspection: normal respiratory effort and able to speak in complete sentences Auscultation: no crackles, no rales, no rhonchi, no wheezes and lung sounds not diminished Other: No wheezes. Cardio: Jugular venous distension: no JVD GI: Inspection: normal to inspection Skin: General skin exam: normal color Neuro: General: oriented to person, oriented to place and oriented to time Extrem: General: normal to inspection Psych: Appearance: grossly normal Objective Data Vital Signs Vital Signs: Vital Signs - 24 hr 06/24/25 09:05 06/24/25 10:00 06/24/25 10:00 Temperature Pulse Rate 130 H 117 H Respiratory Rate 24 H Blood Pressure Pulse Oximetry 93 Oxygen Delivery High Flow Nasal Cannula Oxygen Flow Rate 10 Fraction of Inspired Oxygen 06/24/25 10:23 06/24/25 11:44 06/24/25 12:00 Temperature 36.8 C Pulse Rate 123 H 80 Respiratory Rate 24 H Blood Pressure 99/50 L Pulse Oximetry 94 94 Oxygen Delivery High Flow Nasal Cannula Oxygen Flow Rate 10 Fraction of Inspired Oxygen 06/24/25 12:00 06/24/25 14:00 06/24/25 15:43 Temperature Pulse Rate 71 100 Respiratory Rate Blood Pressure Pulse Oximetry 95 Oxygen Delivery High Flow Nasal Cannula Oxygen Flow Rate 10 Fraction of Inspired Oxygen 06/24/25 15:44 06/24/25 15:49 06/24/25 16:00 Temperature 37.2 C Pulse Rate 104 H 110 H 99 Respiratory Rate 24 H 24 H 24 H Blood Pressure 127/57 L Pulse Oximetry 91 Oxygen Delivery Oxygen Flow Rate Fraction of Inspired Oxygen 06/24/25 16:00 06/24/25 18:00 06/24/25 20:00 Temperature 37.0 C Pulse Rate 92 114 H 126 H Respiratory Rate 24 H Blood Pressure 142/80 H Pulse Oximetry 91 Oxygen Delivery Oxygen Flow Rate Fraction of Inspired Oxygen 06/24/25 20:00 06/24/25 20:00 06/24/25 20:18 Temperature Pulse Rate 122 H 122 H 122 H Respiratory Rate 22 H Blood Pressure Pulse Oximetry 94 Oxygen Delivery High Flow Nasal Cannula Oxygen Flow Rate 10 Fraction of Inspired Oxygen 06/24/25 20:21 06/24/25 20:29 06/24/25 20:30 Temperature Pulse Rate 116 H 116 H 105 H Respiratory Rate 24 H 22 H Blood Pressure Pulse Oximetry 94 Oxygen Delivery High Flow Nasal Cannula Oxygen Flow Rate 10 Fraction of Inspired Oxygen 06/24/25 21:22 06/24/25 23:36 06/24/25 23:36 Temperature Pulse Rate 118 H 118 H 98 Respiratory Rate 22 H Blood Pressure Pulse Oximetry 94 Oxygen Delivery High Flow Nasal Cannula Oxygen Flow Rate 10 Fraction of Inspired Oxygen 60 06/24/25 23:52 06/25/25 02:00 06/25/25 03:57 Temperature 36.7 C Pulse Rate 89 92 106 H Respiratory Rate 24 H 20 Blood Pressure 114/57 L Pulse Oximetry 97 Oxygen Delivery Oxygen Flow Rate Fraction of Inspired Oxygen 06/25/25 04:00 06/25/25 04:00 06/25/25 04:00 Temperature 36.8 C Pulse Rate 120 H 120 H 125 H Respiratory Rate 24 H 24 H Blood Pressure 135/92 H Pulse Oximetry 97 97 Oxygen Delivery High Flow Nasal Cannula Oxygen Flow Rate 9 Fraction of Inspired Oxygen 06/25/25 04:06 06/25/25 08:39 Temperature Pulse Rate 111 H 147 H Respiratory Rate 20 Blood Pressure Pulse Oximetry Oxygen Delivery Oxygen Flow Rate Fraction of Inspired Oxygen Intake/Output Intake/Output: Intake & Output 06/22/25 06/23/25 06/24/25 06/25/25 23:59 23:59 23:59 23:59 Intake Total 2485.1 2079.9 1300 200 Output Total 0 1700 1800 550 Balance 2485.1 379.9 -500 -350 Meds/Results Medications: Active Medications Generic Name Dose Route Start Last Admin Trade Name Freq PRN Reason Stop Dose Admin Acetaminophen 650 mg 06/22/25 14:49 06/24/25 20:18 Acetaminophen 325 Mg Tablet PO 650 mg Q4H PRN Administration Mild Pain (1-3) or Fever Hydrocodone Bitart/Acetaminophen 1 tab 06/23/25 08:08 06/25/25 08:36 Hydrocodone/Acetaminophen (*Crx) 5-325 Mg Tablet PO 1 tab Q8H PRN Administration Pain Benzonatate 100 mg 06/22/25 16:14 06/25/25 00:13 Benzonatate 100 Mg Capsule PO 100 mg TID PRN Administration Cough Budesonide 0.5 mg 06/24/25 20:00 06/25/25 08:01 Budesonide Respule Neb 0.5 Mg/2 Ml Amp INHALATION 0.5 mg Q12HRT ROSE MARY Administration Dextrose 12.5 gm 06/22/25 15:39 Dextrose 50% 25 Gm/50 Ml Syringe IV PUSH PRN PRN Hypoglycemia Protocol Diltiazem HCl 60 mg 06/23/25 15:00 06/25/25 08:36 Diltiazem Hcl 60 Mg Tablet PO 60 mg Q6H ROSE MARY Administration Duloxetine HCl 60 mg 06/22/25 17:00 06/25/25 08:36 Duloxetine Hcl 60 Mg Capsule.Dr PO 60 mg BID ROSE MARY Administration Furosemide 40 mg 06/24/25 17:00 06/25/25 08:36 Furosemide 40 Mg Tablet PO 40 mg DAILY ROSE MARY Administration Gabapentin 800 mg 06/22/25 17:00 06/25/25 08:37 Gabapentin 400 Mg Capsule PO 800 mg QID ROSE MARY Administration Glucagon 1 mg 06/22/25 15:39 Glucagon For Inj 1 Mg Vial IM PRN PRN Hypoglycemia Protocol Glucose 15 gm 06/22/25 15:39 Glucose Oral Gel 15 Gm Of Glucse In 37.5 Gm Tube PO PRN PRN Hypoglycemia Protocol Guaifenesin 1,200 mg 06/24/25 21:00 06/25/25 08:34 Guaifenesin 12 Hr 600 Mg Tabcr PO 1,200 mg Q12HR ROSE MARY Administration Hydroxyzine HCl 25 mg 06/23/25 20:48 06/25/25 08:33 Hydroxyzine Hcl 25 Mg Tablet PO 25 mg TID PRN Administration anxiety Dextrose 1,000 mls @ 100 mls/hr 06/22/25 15:39 Dextrose 5% 1,000 Ml IVPB PRN PRN Hypoglycemia Protocol Doxycycline Hyclate 100 mg/ 100 mls @ 100 mls/hr 06/22/25 16:00 06/25/25 05:00 Sodium Chloride IVPB 06/27/25 04:59 Infused Q12H ROSE MARY Infusion Levofloxacin/Dextrose 750 mg in 150 mls @ 100 mls/hr 06/23/25 15:00 06/23/25 17:55 Levaquin 750 Mg/D5w 150 Ml IVPB Infused Q48H ROSE MARY Infusion Ipratropium [place] 0.5 mg 06/24/25 12:00 06/25/25 08:01 Ipratropium Br 0.02% Inh Soln 0.5 Mg/2.5 Ml Vial INHALATION 0.5 mg Q4HRT ROSE MARY Administration Losartan Potassium 25 mg 06/22/25 17:00 06/25/25 08:36 Losartan Potassium 25 Mg Tablet PO 25 mg BID ROSE MARY Administration Metoprolol Tartrate 50 mg 06/25/25 09:00 06/25/25 08:39 Metoprolol Tartrate 50 Mg Tab PO 50 mg Q12HR ROSE MARY Administration Nitroglycerin 0.4 mg 06/22/25 15:39 Nitroglycerin Sl 0.4 Mg Tablet SUBLINGUAL Q5MIN PRN Chest Pain Risperidone 1 mg 06/22/25 17:00 06/25/25 08:34 Risperidone 1 Mg Tablet PO 1 mg TID ROSE MARY Administration Rivaroxaban 20 mg 06/22/25 17:00 06/24/25 16:33 Rivaroxaban 20 Mg Tablet PO 20 mg DAILY@1700 ROSE MARY Administration Simvastatin 20 mg 06/22/25 21:00 06/24/25 20:17 Simvastatin 20 Mg Tablet PO 20 mg HS ROSE MARY Administration Vitamin D 50 mcg 06/23/25 09:00 06/25/25 08:36 Cholecalciferol (Vitamin D3) 25 Mcg (1,000 Units) Tablet PO 50 mcg DAILY ROSE MARY Administration Radiology Results: ITS Impressions Chest X-Ray 06/23/25 11:16 IMPRESSION: 1. Worsening right upper lobe airspace disease or pneumonia. 2. Worsening interstitial pulmonary edema. 3. Persistent pleural effusions and bibasilar atelectasis Head CT 06/23/25 12:29 IMPRESSION: 1. No acute intracranial findings. Chest CT 06/23/25 18:21 IMPRESSION: Severe bilateral bronchopneumonia. Follow-up recommended to assess resolution. Labs Labs: Laboratory Results - last 24 hr 06/24/25 06/24/25 06/24/25 04:10 09:50 10:47 WBC RBC Hgb Hct MCV MCH MCHC RDW Plt Count MPV Immature Gran % (Auto) Neut % (Auto) Lymph % (Auto) [place] % (Auto) Eos % (Auto) Baso % (Auto) Lymph # (Auto) [place] # (Auto) Eos # (Auto) Baso # (Auto) Abs Immat Gran (auto) Absolute Neuts (auto) Absolute Nucleated RBC Nucleated RBC % Puncture Site Right radial ABG pH 7.367 ABG pCO2 45.2 H ABG pO2 53.9 L ABG PO2/FiO2 Ratio 0.90 ABG HCO3 25.4 ABG O2 Saturation 86.9 L* ABG O2 Content 16.0 ABG Base Excess -0.2 A-a Gradient 324.2 Oxyhemoglobin 86.8 L* Total Hemoglobin 13.1 O2 Delivery Device High flow nasal lorraine O2 Liters/Min 10.0 FiO2 60 Sodium Potassium Chloride Carbon Dioxide Anion Gap BUN Creatinine Estim Creat Clear Calc Estimated GFR Glucose Calcium Magnesium Total Bilirubin AST ALT Alkaline Phosphatase Total Protein Albumin Procalcitonin 0.1 Influenza A (RT-PCR) Negative Influenza B (RT-PCR) Negative RSV (RT-PCR) Negative SARS-CoV-2 RNA (RT-PCR) Negative 06/25/25 04:07 WBC 16.2 H RBC 3.99 L Hgb 11.7 L Hct 37.1 MCV 93.0 MCH 29.3 MCHC 31.5 L RDW 15.7 H Plt Count 272 MPV 11.3 H Immature Gran % (Auto) 0.6 H Neut % (Auto) 79.7 H Lymph % (Auto) 10.2 L [place] % (Auto) 9.4 H Eos % (Auto) 0.0 Baso % (Auto) 0.1 L Lymph # (Auto) 1.65 [place] # (Auto) 1.5 H Eos # (Auto) 0.0 Baso # (Auto) 0.0 Abs Immat Gran (auto) 0.09 H Absolute Neuts (auto) 12.9 H Absolute Nucleated RBC 0.000 Nucleated RBC % 0.0 Puncture Site ABG pH ABG pCO2 ABG pO2 ABG PO2/FiO2 Ratio ABG HCO3 ABG O2 Saturation ABG O2 Content ABG Base Excess A-a Gradient Oxyhemoglobin Total Hemoglobin O2 Delivery Device O2 Liters/Min FiO2 Sodium 145 Potassium 3.5 Chloride 112 H Carbon Dioxide 30 Anion Gap 3 L BUN 36 H Creatinine 1.03 H Estim Creat Clear Calc 45 Estimated GFR 53 L Glucose 117 H Calcium 9.2 Magnesium 2.3 Total Bilirubin 0.4 AST 27 ALT 13 Alkaline Phosphatase 51 Total Protein 6.5 Albumin 3.5 Procalcitonin Influenza A (RT-PCR) Influenza B (RT-PCR) RSV (RT-PCR) SARS-CoV-2 RNA (RT-PCR)
[2025-06-25] MEDS: busPIRone HCL 2.5 MG, busPIRone HCL 5 MG 7.5 MG PO ×3 (10:40→21:09)
--- NOTE | 2025-06-25 12:57 | P.PNCA_ITS ---
Progress Note: A&P Assessment and Plan (1) Atrial fibrillation with rapid ventricular response: Code(s): I48.91 - Unspecified atrial fibrillation Status: Acute (2) Acute exacerbation of CHF (congestive heart failure): Qualifiers: Heart failure type: diastolic Qualified Code(s): I50.33 - Acute on chronic diastolic (congestive) heart failure Code(s): I50.9 - Heart failure, unspecified Status: Acute (3) HLD (hyperlipidemia): Code(s): E78.5 - Hyperlipidemia, unspecified Status: Acute (4) Hypertension: Qualifiers: Hypertension type: primary hypertension Qualified Code(s): I10 - Essential (primary) hypertension Code(s): I10 - Essential (primary) hypertension Status: Chronic Plan -AFib with RVR -troponin elevation -bronchopneumonia -acute on chronic diastolic heart failure exacerbation. -acute COPD exacerbation -history of hypertension -history of hyperlipidemia -regards to AFib with RVR, remains in AFib with RVR despite receiving diltiazem 60 mg q.6 hours. Continue Xarelto. Echo done during this admission shows normal ejection fraction. Continue metoprolol 50 mg b.i.d., diltiazem 60mg q6h. -in regards to bronchopneumonia CT scan suggestive of severe bronchopneumonia. Continue antibiotics -regards to troponin elevation likely secondary to demand ischemia from AFib with RVR. Denies chest pain.. Echo shows no wall motion abnormalities. -a gastro acute diastolic heart failure exacerbation, at home she takes 20 mg Lasix p.o. as needed. Transition to 40 mg p.o. daily -regards to acute COPD exacerbation, continue p.o. steroids and nebulizers. Also continue antibiotics. Regards to hypertension, continue losartan. Continue diltiazem. Start metoprolol 50 mg b.i.d. -in regards to hyperlipidemia continue statin Cardiology will follow along on an as needed basis please call with questions Subjective Date/time seen: 06/25/25 12:57 Interval history: This 74-year-old female with history of diastolic heart failure, paroxysmal atrial fibrillation, COPD, diabetes, hypertension, hyperlipidemia, anxiety and depression presents to the hospital with 1 week history of shortness of breath. Associated with cough. Denied lower extremity edema. Consult was called because of atrial fibrillation. Currently in sinus tachycardia with PACs on diltiazem drip 10 mg /hour. Denies chest pain.Creatinine 1, brain atretic peptide at 3600 Chest x-ray reviewed on as miss of mild vascular congestion. Initial EKG shows sinus rhythm with PACs but repeat EKG shows AFib with RVR with ST depressions. Echo done during this admission: 1. Left ventricular systolic function is hyperdynamic, estimated at >70. 2. There is mildly increased left ventricular wall thickness. 3. The left ventricular diastolic function is abnormal. 4. Left atrial chamber dimension is mildly enlarged. 5. There is small pericardial effusion. 6. atrial fibrillation with RVR. Date of service 06/24/2025: She states that she is breathing better. Remains in AFib with RVR. On 10 L Date of service 06/25/2025: Had atrial fibrillation with RVR this morning and was symptomatic with palpitations, increased SOB. Heart rate became controlled after receiving diltiazem and metoprolol. Review of Systems Review of Systems: All systems reviewed & are unremarkable except as noted in HPI and below Exam Narrative: Not in distress Const: General: comfortable and no acute distress Orientation/consciousness: No patient oriented x3 HENMT: Other: No evidence of bleeding Eyes: General: appearance normal, both eyes and all related structures Neck: Other: Supple Chest: Other: Symmetric lung expansion Resp: Effort & Inspection: normal respiratory effort Auscultation: wheezes expiratory wheezes and anterior Cardio: Rate: regular rate Rhythm: abnormal rhythm irregularly irregular GI: Other: No distension Skin: Other: No rash Extrem: Other: No edema Psych: Other: Normal behavior Objective Data Vital Signs Vital Signs: Vital Signs - 24 hr 06/24/25 14:00 06/24/25 15:43 06/24/25 15:44 Temperature Pulse Rate 100 104 H Respiratory Rate 24 H Blood Pressure Pulse Oximetry 95 Oxygen Delivery High Flow Nasal Cannula Oxygen Flow Rate 10 Fraction of Inspired Oxygen 06/24/25 15:49 06/24/25 16:00 06/24/25 16:00 Temperature 37.2 C Pulse Rate 110 H 99 92 Respiratory Rate 24 H 24 H Blood Pressure 127/57 L Pulse Oximetry 91 Oxygen Delivery Oxygen Flow Rate Fraction of Inspired Oxygen 06/24/25 18:00 06/24/25 20:00 06/24/25 20:00 Temperature 37.0 C Pulse Rate 114 H 126 H 122 H Respiratory Rate 24 H 22 H Blood Pressure 142/80 H Pulse Oximetry 91 94 Oxygen Delivery High Flow Nasal Cannula Oxygen Flow Rate 10 Fraction of Inspired Oxygen 06/24/25 20:00 06/24/25 20:18 06/24/25 20:21 Temperature Pulse Rate 122 H 122 H 116 H Respiratory Rate 24 H Blood Pressure Pulse Oximetry Oxygen Delivery Oxygen Flow Rate Fraction of Inspired Oxygen 06/24/25 20:29 06/24/25 20:30 06/24/25 21:22 Temperature Pulse Rate 116 H 105 H 118 H Respiratory Rate 22 H Blood Pressure Pulse Oximetry 94 Oxygen Delivery High Flow Nasal Cannula Oxygen Flow Rate 10 Fraction of Inspired Oxygen 06/24/25 23:36 06/24/25 23:36 06/24/25 23:52 Temperature 36.7 C Pulse Rate 118 H 98 89 Respiratory Rate 22 H 24 H Blood Pressure 114/57 L Pulse Oximetry 94 97 Oxygen Delivery High Flow Nasal Cannula Oxygen Flow Rate 10 Fraction of Inspired Oxygen 60 06/25/25 02:00 06/25/25 03:57 06/25/25 04:00 Temperature Pulse Rate 92 106 H 120 H Respiratory Rate 20 24 H Blood Pressure Pulse Oximetry 97 Oxygen Delivery High Flow Nasal Cannula Oxygen Flow Rate 9 Fraction of Inspired Oxygen 06/25/25 04:00 06/25/25 04:00 06/25/25 04:06 Temperature 36.8 C Pulse Rate 120 H 125 H 111 H Respiratory Rate 24 H 20 Blood Pressure 135/92 H Pulse Oximetry 97 Oxygen Delivery Oxygen Flow Rate Fraction of Inspired Oxygen 06/25/25 08:00 06/25/25 08:00 06/25/25 08:00 Temperature 36.9 C Pulse Rate 120 H 127 H 69 Respiratory Rate 24 H 24 H 26 H Blood Pressure 179/101 H Pulse Oximetry 91 93 Oxygen Delivery High Flow Nasal Cannula Oxygen Flow Rate 10 Fraction of Inspired Oxygen 06/25/25 08:00 06/25/25 08:39 06/25/25 10:00 Temperature Pulse Rate 117 H 147 H 141 H Respiratory Rate Blood Pressure Pulse Oximetry Oxygen Delivery Oxygen Flow Rate Fraction of Inspired Oxygen 06/25/25 12:00 Temperature 36.8 C Pulse Rate 107 H Respiratory Rate 24 H Blood Pressure Pulse Oximetry 98 Oxygen Delivery Oxygen Flow Rate Fraction of Inspired Oxygen Intake/Output Intake/Output: Intake & Output 06/22/25 06/23/25 06/24/2515/25 23:59 23:59 23:59 23:59 Intake Total 2485.1 2079.9 1300 320 Output Total 0 1700 1800 550 Balance 2485.1 379.9 -500 -230 Meds/Results Medications: Active Medications Generic Name Dose Route Start Last Admin Trade Name Freq PRN Reason Stop Dose Admin Acetaminophen 650 mg 06/22/25 14:49 06/24/25 20:18 Acetaminophen 325 Mg Tablet PO 650 mg Q4H PRN Administration Mild Pain (1-3) or Fever Hydrocodone Bitart/Acetaminophen 1 tab 06/23/25 08:08 06/25/25 08:36 Hydrocodone/Acetaminophen (*Crx) 5-325 Mg Tablet PO 1 tab Q8H PRN Administration Pain Benzonatate 100 mg 06/22/25 16:14 06/25/25 00:13 Benzonatate 100 Mg Capsule PO 100 mg TID PRN Administration Cough Budesonide 0.5 mg 06/24/25 20:00 06/25/25 08:01 Budesonide Respule Neb 0.5 Mg/2 Ml Amp INHALATION 0.5 mg Q12HRT ROSE MARY Administration Buspirone HCl 2.5 mg/ 7.5 mg 06/25/25 09:53 06/25/25 10:40 Buspirone HCl 5 mg PO 7.5 mg Q8HR ROSE MARY Administration Dextrose 12.5 gm 06/22/25 15:39 Dextrose 50% 25 Gm/50 Ml Syringe IV PUSH PRN PRN Hypoglycemia Protocol Diltiazem HCl 60 mg 06/23/25 15:00 06/25/25 08:36 Diltiazem Hcl 60 Mg Tablet PO 60 mg Q6H ROSE MARY Administration Duloxetine HCl 60 mg 06/22/25 17:00 06/25/25 08:36 Duloxetine Hcl 60 Mg Capsule.Dr PO 60 mg BID ROSE MARY Administration Furosemide 40 mg 06/24/25 17:00 06/25/25 08:36 Furosemide 40 Mg Tablet PO 40 mg DAILY ROSE MARY Administration Gabapentin 800 mg 06/22/25 17:00 06/25/25 08:37 Gabapentin 400 Mg Capsule PO 800 mg QID ROSE MARY Administration Glucagon 1 mg 06/22/25 15:39 Glucagon For Inj 1 Mg Vial IM PRN PRN Hypoglycemia Protocol Glucose 15 gm 06/22/25 15:39 Glucose Oral Gel 15 Gm Of Glucse In 37.5 Gm Tube PO PRN PRN Hypoglycemia Protocol Guaifenesin 1,200 mg 06/24/25 21:00 06/25/25 08:34 Guaifenesin 12 Hr 600 Mg Tabcr PO 1,200 mg Q12HR ROSE MARY Administration Hydroxyzine HCl 25 mg 06/23/25 20:48 06/25/25 08:33 Hydroxyzine Hcl 25 Mg Tablet PO 25 mg TID PRN Administration anxiety Dextrose 1,000 mls @ 100 mls/hr 06/22/25 15:39 Dextrose 5% 1,000 Ml IVPB PRN PRN Hypoglycemia Protocol Doxycycline Hyclate 100 mg/ 100 mls @ 100 mls/hr 06/22/25 16:00 06/25/25 05:00 Sodium Chloride IVPB 06/27/25 04:59 Infused Q12H ROSE MARY Infusion Levofloxacin/Dextrose 750 mg in 150 mls @ 100 mls/hr 06/23/25 15:00 06/23/25 17:55 Levaquin 750 Mg/D5w 150 Ml IVPB Infused Q48H ROSE MARY Infusion Ipratropium [place] 0.5 mg 06/24/25 12:00 06/25/25 08:01 Ipratropium Br 0.02% Inh Soln 0.5 Mg/2.5 Ml Vial INHALATION 0.5 mg Q4HRT ROSE MARY Administration Losartan Potassium 25 mg 06/22/25 17:00 06/25/25 08:36 Losartan Potassium 25 Mg Tablet PO 25 mg BID ROSE MARY Administration Metoprolol Tartrate 50 mg 06/25/25 09:00 06/25/25 08:39 Metoprolol Tartrate 50 Mg Tab PO 50 mg Q12HR ROSE MARY Administration Nitroglycerin 0.4 mg 06/22/25 15:39 Nitroglycerin Sl 0.4 Mg Tablet SUBLINGUAL Q5MIN PRN Chest Pain Risperidone 1 mg 06/22/25 17:00 06/25/25 08:34 Risperidone 1 Mg Tablet PO 1 mg TID ROSE MARY Administration Rivaroxaban 20 mg 06/22/25 17:00 06/24/25 16:33 Rivaroxaban 20 Mg Tablet PO 20 mg DAILY@1700 ROSE MARY Administration Simvastatin 20 mg 06/22/25 21:00 06/24/25 20:17 Simvastatin 20 Mg Tablet PO 20 mg HS ROSE MARY Administration Vitamin D 50 mcg 06/23/25 09:00 06/25/25 08:36 Cholecalciferol (Vitamin D3) 25 Mcg (1,000 Units) Tablet PO 50 mcg DAILY ROSE MARY Administration Radiology Results: ITS Impressions Chest X-Ray 06/23/25 11:16 IMPRESSION: 1. Worsening right upper lobe airspace disease or pneumonia. 2. Worsening interstitial pulmonary edema. 3. Persistent pleural effusions and bibasilar atelectasis Head CT 06/23/25 12:29 IMPRESSION: 1. No acute intracranial findings. Chest CT 06/23/25 18:21 IMPRESSION: Severe bilateral bronchopneumonia. Follow-up recommended to assess resolution. Labs Labs: Laboratory Results - last 24 hr 06/25/25 04:07 WBC 16.2 H RBC 3.99 L Hgb 11.7 L Hct 37.1 MCV 93.0 MCH 29.3 MCHC 31.5 L RDW 15.7 H Plt Count 272 MPV 11.3 H Immature Gran % (Auto) 0.6 H Neut % (Auto) 79.7 H Lymph % (Auto) 10.2 L [place] % (Auto) 9.4 H Eos % (Auto) 0.0 Baso % (Auto) 0.1 L Lymph # (Auto) 1.65 [place] # (Auto) 1.5 H Eos # (Auto) 0.0 Baso # (Auto) 0.0 Abs Immat Gran (auto) 0.09 H Absolute Neuts (auto) 12.9 H Absolute Nucleated RBC 0.000 Nucleated RBC % 0.0 Sodium 145 Potassium 3.5 Chloride 112 H Carbon Dioxide 30 Anion Gap 3 L BUN 36 H Creatinine 1.03 H Estim Creat Clear Calc 45 Estimated GFR 53 L Glucose 117 H Calcium 9.2 Magnesium 2.3 Total Bilirubin 0.4 AST 27 ALT 13 Alkaline Phosphatase 51 Total Protein 6.5 Albumin 3.5 Quality VTE Prophylaxis VTE prophylaxis: pharmacologic ordered
--- NOTE | 2025-06-25 12:58 | P.PNIM_ITS ---
Assessment and Plan Assessment and Plan (1) COPD (chronic obstructive pulmonary disease): Qualifiers: COPD type: unspecified COPD Qualified Code(s): J44.9 - Chronic obstructive pulmonary disease, unspecified Code(s): J44.9 - Chronic obstructive pulmonary disease, unspecified Status: Chronic Assessment and Plan: New shortness of breath, chronic dry cough that initially improved with nebulizer in the ED on 06 17. However has been progressively more short of breath since then. Admitted on 06/22. Initial evaluation in the ED showed diffuse expiratory wheezing, new O2 requirement, and tachypnea. Modestly improved with nebulizers. - continue levalbuterol/HR vent scheduled - prednisone 40 mg daily x5 days, given Solu-Medrol in the ED initially - s/pceftriaxone and doxycycline on 06/22, allergy to erythromycin - Mucinex yudelka - continue supplemental O2 to maintain O2 sat greater than 92%, currently requiring 3L NC. No baseline requirement. (2) Atrial fibrillation with rapid ventricular response: Code(s): I48.91 - Unspecified atrial fibrillation Status: Acute Assessment and Plan: Patient arrived in NSR. Post multiple breathing treatments she developed AFib RVR, has history of AFib. Minimal response with metoprolol 5 mg IV x2. Given home metoprolol dose orally. Remains in the 120s, intermittently in the 150s. If no improvement with third dose of IV metoprolol, will transition to IV diltiazem. - admission to IMU - telemetry monitoring - Continue Cardizem and Metoprolol per cardiology, monitor HR - TSH reviewed, 1.44 on 02/23/2025 - continue Xarelto (3) Acute exacerbation of CHF (congestive heart failure): Qualifiers: Heart failure type: diastolic Qualified Code(s): I50.33 - Acute on chronic diastolic (congestive) heart failure Code(s): I50.9 - Heart failure, unspecified Status: Acute Assessment and Plan: CXR concerning for small bilateral pleural effusions with vascular changes which may represent mild vascular congestion or atypical inflammatory/infectious process. Denies any new peripheral edema or weight gain, does report she is at 3 lb of weight gain over the past few months however does not feel it is fluid related. Last echo on file in 2022 which showed EF of 55-60%, diastolic dysfunction, LV wall thickness increased, LA chamber moderately enlarged, mild pulmonary hypertension, trivial pericardial effusion. - update echo - monitor I&Os daily weights - s/p IV Lasix , now on Lasix 40mg daily (4) Elevated troponin: Code(s): R79.89 - Other specified abnormal findings of blood chemistry Status: Acute Assessment and Plan: Likely type 2 given new hypoxia. Was 86% on room air due to COPD exacerbation. Troponin currently downtrending. No reports of chest pain. Does have some chest tightness with exertion, however shortness of breath significantly worsens with exertion as well. Now additionally in AFib RVR secondary to nebulizer treatments. EKG reviewed, no significant ST depressions or elevations. PACs and PVCs now present when compared to previous. - trend troponin - SL nitro p.r.n. (5) Hypertension: Qualifiers: Hypertension type: primary hypertension Qualified Code(s): I10 - Essential (primary) hypertension Code(s): I10 - Essential (primary) hypertension Status: Chronic Assessment and Plan: - chronic, currently 157/53, stable. - continue home medications: Losartan 25 mg b.i.d.. Holding metoprolol, see above. 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 Last A1c 5.9% on 03/27/2025. - hypoglycemia protocol p.r.n. Plan Acute hypoxemic respiratory failure on HFNC Severe bilateral bronchopneumonia, CT chest reviewed CXR showed bilateral infiltrates MRSA negative Continue Levaquin and Doxycycline continue Lasix 40mg po daily titrate oxygen monitor Pulmonology following Diet: Heart healthy DVT Prophylaxis: Xarelto Lines/Tubes: pIV Code Status: Full code Subjective Date/time seen: 06/25/25 12:58 Interval history: Comfortable at bedside now on 8 L HFNC Review of Systems Review of Systems: All systems reviewed & are unremarkable except as noted in HPI and below Exam Const: General: comfortable and no acute distress Other: , female, elderly, nontoxic appearance HENMT: Face/Nose/Sinus: Normal nares present Mouth: Yes moist mucous membranes Eyes: General: appearance normal, both eyes and all related structures Sclera: sclerae normal Pupils: Equal, round and reactive pupils present EOM: EOMs intact bilaterally Resp: Other: Faint expiratory wheeze, mild tachypnea (ambulated to the restroom just prior to exam). No crackles appreciated. Cardio: Rate: tachycardic Rhythm: abnormal rhythm (Consistent with AFib) Other: S1-S2 present without murmur, rub, ectopy GI: Other: Abdomen soft, nondistended, nontender. Normoactive bowel sounds in all quadrants. Skin: General skin exam: normal color and no rashes or lesions noted Wounds: no wounds Neuro: Cranial nerves: Yes Equal, round and reactive pupils present Speech: normal speech Motor exam (neuro): 5/5 motor strength present throughout Sensory Exam: normal sensation Other: A&O x4 Extrem: Other: Trace edema to the bilateral ankles, symmetric and nonpitting Psych: Mental Status: mental status grossly normal Affect: normal affect Other: Good insight and judgment. Objective Data Vital Signs Vital Signs: Vital Signs - 24 hr 06/24/25 14:00 06/24/25 15:43 06/24/25 15:44 Temperature Pulse Rate 100 104 H Respiratory Rate 24 H Blood Pressure Pulse Oximetry 95 Oxygen Delivery High Flow Nasal Cannula Oxygen Flow Rate 10 Fraction of Inspired Oxygen 06/24/25 15:49 06/24/25 16:00 06/24/25 16:00 Temperature 98.9 F Pulse Rate 110 H 99 92 Respiratory Rate 24 H 24 H Blood Pressure 127/57 L Pulse Oximetry 91 Oxygen Delivery Oxygen Flow Rate Fraction of Inspired Oxygen 06/24/25 18:00 06/24/25 20:00 06/24/25 20:00 Temperature 98.6 F Pulse Rate 114 H 126 H 122 H Respiratory Rate 24 H 22 H Blood Pressure 142/80 H Pulse Oximetry 91 94 Oxygen Delivery High Flow Nasal Cannula Oxygen Flow Rate 10 Fraction of Inspired Oxygen 06/24/25 20:00 06/24/25 20:18 06/24/25 20:21 Temperature Pulse Rate 122 H 122 H 116 H Respiratory Rate 24 H Blood Pressure Pulse Oximetry Oxygen Delivery Oxygen Flow Rate Fraction of Inspired Oxygen 06/24/25 20:29 06/24/25 20:30 06/24/25 21:22 Temperature Pulse Rate 116 H 105 H 118 H Respiratory Rate 22 H Blood Pressure Pulse Oximetry 94 Oxygen Delivery High Flow Nasal Cannula Oxygen Flow Rate 10 Fraction of Inspired Oxygen 06/24/25 23:36 06/24/25 23:36 06/24/25 23:52 Temperature 98.1 F Pulse Rate 118 H 98 89 Respiratory Rate 22 H 24 H Blood Pressure 114/57 L Pulse Oximetry 94 97 Oxygen Delivery High Flow Nasal Cannula Oxygen Flow Rate 10 Fraction of Inspired Oxygen 60 06/25/25 02:00 06/25/25 03:57 06/25/25 04:00 Temperature Pulse Rate 92 106 H 120 H Respiratory Rate 20 24 H Blood Pressure Pulse Oximetry 97 Oxygen Delivery High Flow Nasal Cannula Oxygen Flow Rate 9 Fraction of Inspired Oxygen 06/25/25 04:00 06/25/25 04:00 06/25/25 04:06 Temperature 98.3 F Pulse Rate 120 H 125 H 111 H Respiratory Rate 24 H 20 Blood Pressure 135/92 H Pulse Oximetry 97 Oxygen Delivery Oxygen Flow Rate Fraction of Inspired Oxygen 06/25/25 08:00 06/25/25 08:00 06/25/25 08:00 Temperature 98.5 F Pulse Rate 120 H 127 H 69 Respiratory Rate 24 H 24 H 26 H Blood Pressure 179/101 H Pulse Oximetry 91 93 Oxygen Delivery High Flow Nasal Cannula Oxygen Flow Rate 10 Fraction of Inspired Oxygen 06/25/25 08:00 06/25/25 08:39 06/25/25 10:00 Temperature Pulse Rate 117 H 147 H 141 H Respiratory Rate Blood Pressure Pulse Oximetry Oxygen Delivery Oxygen Flow Rate Fraction of Inspired Oxygen 06/25/25 12:00 Temperature 98.2 F Pulse Rate 107 H Respiratory Rate 24 H Blood Pressure Pulse Oximetry 98 Oxygen Delivery Oxygen Flow Rate Fraction of Inspired Oxygen Intake/Output Intake/Output: Intake & Output 06/22/25 06/23/25 06/24/25 06/25/25 23:59 23:59 23:59 23:59 Intake Total 2485.1 2079.9 1300 320 Output Total 0 1700 1800 550 Balance 2485.1 379.9 -500 -230 Meds/Results Medications: Active Medications Generic Name Dose Route Start Last Admin Trade Name Freq PRN Reason Stop Dose Admin Acetaminophen 650 mg 06/22/25 14:49 06/24/25 20:18 Acetaminophen 325 Mg Tablet PO 650 mg Q4H PRN Administration Mild Pain (1-3) or Fever Hydrocodone Bitart/Acetaminophen 1 tab 06/23/25 08:08 06/25/25 08:36 Hydrocodone/Acetaminophen (*Crx) 5-325 Mg Tablet PO 1 tab Q8H PRN Administration Pain Benzonatate 100 mg 06/22/25 16:14 06/25/25 00:13 Benzonatate 100 Mg Capsule PO 100 mg TID PRN Administration Cough Budesonide 0.5 mg 06/24/25 20:00 06/25/25 08:01 Budesonide Respule Neb 0.5 Mg/2 Ml Amp INHALATION 0.5 mg Q12HRT YUDELKA Administration Buspirone HCl 2.5 mg/ 7.5 mg 06/25/25 09:53 06/25/25 10:40 Buspirone HCl 5 mg PO 7.5 mg Q8HR YUDELKA Administration Dextrose 12.5 gm 06/22/25 15:39 Dextrose 50% 25 Gm/50 Ml Syringe IV PUSH PRN PRN Hypoglycemia Protocol Diltiazem HCl 60 mg 06/23/25 15:00 06/25/25 08:36 Diltiazem Hcl 60 Mg Tablet PO 60 mg Q6H YUDELKA Administration Duloxetine HCl 60 mg 06/22/25 17:00 06/25/25 08:36 Duloxetine Hcl 60 Mg Capsule.Dr PO 60 mg BID YUDELKA Administration Furosemide 40 mg 06/24/25 17:00 06/25/25 08:36 Furosemide 40 Mg Tablet PO 40 mg DAILY YUDELKA Administration Gabapentin 800 mg 06/22/25 17:00 06/25/25 08:37 Gabapentin 400 Mg Capsule PO 800 mg QID YUDELKA Administration Glucagon 1 mg 06/22/25 15:39 Glucagon For Inj 1 Mg Vial IM PRN PRN Hypoglycemia Protocol Glucose 15 gm 06/22/25 15:39 Glucose Oral Gel 15 Gm Of Glucse In 37.5 Gm Tube PO PRN PRN Hypoglycemia Protocol Guaifenesin 1,200 mg 06/24/25 21:00 06/25/25 08:34 Guaifenesin 12 Hr 600 Mg Tabcr PO 1,200 mg Q12HR YUDELKA Administration Hydroxyzine HCl 25 mg 06/23/25 20:48 06/25/25 08:33 Hydroxyzine Hcl 25 Mg Tablet PO 25 mg TID PRN Administration anxiety Dextrose 1,000 mls @ 100 mls/hr 06/22/25 15:39 Dextrose 5% 1,000 Ml IVPB PRN PRN Hypoglycemia Protocol Doxycycline Hyclate 100 mg/ 100 mls @ 100 mls/hr 06/22/25 16:00 06/25/25 05:00 Sodium Chloride IVPB 06/27/25 04:59 Infused Q12H YUDELKA Infusion Levofloxacin/Dextrose 750 mg in 150 mls @ 100 mls/hr 06/23/25 15:00 06/23/25 17:55 Levaquin 750 Mg/D5w 150 Ml IVPB Infused Q48H YUDELKA Infusion Ipratropium [place] 0.5 mg 06/24/25 12:00 06/25/25 08:01 Ipratropium Br 0.02% Inh Soln 0.5 Mg/2.5 Ml Vial INHALATION 0.5 mg Q4HRT YUDELKA Administration Losartan Potassium 25 mg 06/22/25 17:00 06/25/25 08:36 Losartan Potassium 25 Mg Tablet PO 25 mg BID YUDELKA Administration Metoprolol Tartrate 50 mg 06/25/25 09:00 06/25/25 08:39 Metoprolol Tartrate 50 Mg Tab PO 50 mg Q12HR YUDELKA Administration Nitroglycerin 0.4 mg 06/22/25 15:39 Nitroglycerin Sl 0.4 Mg Tablet SUBLINGUAL Q5MIN PRN Chest Pain Risperidone 1 mg 06/22/25 17:00 06/25/25 08:34 Risperidone 1 Mg Tablet PO 1 mg TID YUDELKA Administration Rivaroxaban 20 mg 06/22/25 17:00 06/24/25 16:33 Rivaroxaban 20 Mg Tablet PO 20 mg DAILY@1700 YUDELKA Administration Simvastatin 20 mg 06/22/25 21:00 06/24/25 20:17 Simvastatin 20 Mg Tablet PO 20 mg HS YUDELKA Administration Vitamin D 50 mcg 06/23/25 09:00 06/25/25 08:36 Cholecalciferol (Vitamin D3) 25 Mcg (1,000 Units) Tablet PO 50 mcg DAILY YUDELKA Administration Radiology Results: ITS Impressions Chest X-Ray 06/23/25 11:16 IMPRESSION: 1. Worsening right upper lobe airspace disease or pneumonia. 2. Worsening interstitial pulmonary edema. 3. Persistent pleural effusions and bibasilar atelectasis Head CT 06/23/25 12:29 IMPRESSION: 1. No acute intracranial findings. Chest CT 06/23/25 18:21 IMPRESSION: Severe bilateral bronchopneumonia. Follow-up recommended to assess resolution. Labs Labs: Laboratory Results - last 24 hr 06/25/25 04:07 WBC 16.2 H RBC 3.99 L Hgb 11.7 L Hct 37.1 MCV 93.0 MCH 29.3 MCHC 31.5 L RDW 15.7 H Plt Count 272 MPV 11.3 H Immature Gran % (Auto) 0.6 H Neut % (Auto) 79.7 H Lymph % (Auto) 10.2 L Grainger % (Auto) 9.4 H Eos % (Auto) 0.0 Baso % (Auto) 0.1 L Lymph # (Auto) 1.65 Grainger # (Auto) 1.5 H Eos # (Auto) 0.0 Baso # (Auto) 0.0 Abs Immat Gran (auto) 0.09 H Absolute Neuts (auto) 12.9 H Absolute Nucleated RBC 0.000 Nucleated RBC % 0.0 Sodium 145 Potassium 3.5 Chloride 112 H Carbon Dioxide 30 Anion Gap 3 L BUN 36 H Creatinine 1.03 H Estim Creat Clear Calc 45 Estimated GFR 53 L Glucose 117 H Calcium 9.2 Magnesium 2.3 Total Bilirubin 0.4 AST 27 ALT 13 Alkaline Phosphatase 51 Total Protein 6.5 Albumin 3.5 Quality VTE Prophylaxis VTE prophylaxis: pharmacologic ordered
[2025-06-25] MEDS: levoFLOXacin 750 MG/D5W 150 ML 750 MG/150 ML BAG 100 MG IVPB (14:05)
[2025-06-25] MEDS: LORazepam (*CRX) 1 MG TABLET 2 MG PO (14:52)
[2025-06-25] MEDS: RIVAROXABAN 20 MG TABLET PO (18:01)
[2025-06-25] MEDS: SIMVASTATIN 20 MG TABLET PO (21:10)
[2025-06-26] VITALS (35 sets, daily range): BP systolic 100–143; BP diastolic 56–88; PULSE 78–133; RESP 20–24; TEMP 36.6–37.9; O2SAT 89–99
[2025-06-26] MEDS: HYDROcodone/acetaminophen (*CRX) 5-325 MG TABLET 1 TAB PO (03:04)
[2025-06-26] MEDS: DOXYCYCLINE IV 100 MG in SODIUM CHLORIDE 0.9% IV 100 ML IVPB ×2 (03:05→16:06)
[2025-06-26 04:39] LABS: Hematocrit 34.8 % (37.0-47.0); Hemoglobin 10.9 g/dL (12.0-15.0); Immature Granulocyte Percent A 0.5 % (0-0.5); Lymphocytes Absolute Auto 1.29 K/mm3 (0.9-3.2); Mean Corpuscular HGB Conc 31.3 g/dl (32-36); Mean Corpuscular Hemoglobin 28.8 pg (26-34); Mean Corpuscular Volume 91.8 fl (80-100); Nucleated Red Blood Cells Absolute Auto 0.000 K/mm3 (0.0-0.012); Nucleated Red Blood Cells Perc 0.0 % (0.0-0.2); Platelet Count Result 251 k/mm3 (150-375); Red Blood Count 3.79 M/mm3 (4.2-5.4); White Blood Count 11.1 K/mm3 (4.5-10.0)
[2025-06-26 05:04] LABS: Alanine Aminotransferase 12 U/L (6-35); Albumin Level 3.3 g/dL (3.5-5.1); Alkaline Phosphatase 51 U/L (38-126); Anion Gap 3 mmol/L (4-12); Aspartate Amino Transferase 23 U/L (14-36); Bilirubin,Total 0.5 mg/dL (0.2-1.3); Blood Urea Nitrogen 29 mg/dL (7-17); Calcium 9.0 mg/dL (8.4-10.2); Carbon Dioxide 31 mmol/L (22-30); Chloride 110 mmol/L (98-107); Estimated CRCL calculation 52 ml/min; Estimated Glomerular Filt Rate > 60; Glucose 125 mg/dL (65-110); Magnesium 2.0 mg/dL (1.6-2.3); Potassium 3.0 mmol/L (3.4-5.0); Sodium 144 mmol/L (137-145); Total Protein 6.1 g/dL (6.3-8.2)
[2025-06-26] MEDS: busPIRone HCL 2.5 MG, busPIRone HCL 5 MG 7.5 MG PO ×2 (05:56→12:52)
[2025-06-26] MEDS: IPRATROPIUM BR 0.02% INH SOLN 0.5 MG/2.5 ML VIAL INHALATION ×5 (07:24→23:57)
[2025-06-26] MEDS: BUDESONIDE RESPULE NEB 0.5 MG/2 ML AMP INHALATION ×2 (07:25→20:16)
[2025-06-26 07:51] LABS: NT Pro B Type Natriuretic Pept 5330 pg/mL (19.9-100)
[2025-06-26] MEDS: guaiFENesin 12 HR 600 MG TABCR 1200 MG PO ×2 (07:55→20:57)
[2025-06-26] MEDS: DULoxetine HCL 60 MG CAPSULE.DR PO ×2 (07:56→16:07)
[2025-06-26] MEDS: BENZONATATE 100 MG CAPSULE PO (07:56)
[2025-06-26] MEDS: CHOLECALCIFEROL (VITAMIN D3) 25 MCG (1,000 UNITS) TABLET 50 MCG PO (07:56)
[2025-06-26] MEDS: GABAPENTIN 400 MG CAPSULE 800 MG PO ×4 (07:56→20:56)
[2025-06-26] MEDS: LOSARTAN POTASSIUM 25 MG TABLET PO ×2 (07:56→16:07)
[2025-06-26] MEDS: METOPROLOL TARTRATE 50 MG TAB PO ×2 (07:56→20:57)
[2025-06-26] MEDS: FUROSEMIDE 40 MG TABLET PO ×2 (07:57→16:07)
[2025-06-26 08:01] LABS: CRP 18.2 mg/dL (<1.0)
[2025-06-26 09:07] LABS: Alveolar/Arterial O2 Gradient 153.7 mmHg; Fractional Inspired Oxygen 40 %; HCO3 ABG 31.4 mEq/l (22.0-26.0); Oxygen Content ABG 16.2 %vol (16.0-22.0); Oxygen Saturation ABG 95.0 % (95.0-100.0); PCO2 ABG 49.7 mmHg (35.0-45.0); PO2 ABG 74.3 mmHg (80.0-100.0); PO2 FiO2 Ratio Arterial Blood 1.86 %
[2025-06-26 09:10] LABS: Liters per Minute 10.0 LPM; Modified Allen's Test Pass; Site Drawn RIGHT RADIAL
--- NOTE | 2025-06-26 09:17 | P.PNPL_ITS ---
Progress Note: A&P Assessment and Plan (1) Abnormal PFT: Code(s): R94.2 - Abnormal results of pulmonary function studies Status: Acute Assessment and Plan: PFTs on 12/12/2024 demonstrate Preserved Ratio Impaired Spirometry (PRISm) with a normal FVC. she has a 5 pack year tobacco history and is currently smoking [address] scan of the chest shows no significant bullous emphysema. She has no bronchodilator response. The plan in the Pulmonary Clinic was to give her therapeutic trial of bronchodilators to see if this gave her clinical benefit. PFT showed PRISm which indicates early airflow obstruction. People with PRISm may have increased respiratory symptoms despite not meeting formal criteria for COPD. This may progress to a restrictive or obstructive process and can be associated with increased cardiovascular and all cause mortality in some studies. 06/24/2025: Patient tells me she has improved. She has 50% back to her normal. Her cough is essentially resolved. She denies phlegm or hemoptysis. She has no wheezing. When I enter the room she was on Airvo 40 L, 66% FiO2 with saturations 96%. The placed her on 15 L nasal cannula and sequentially decreased her to 10 L nasal cannula saturations 93%. Clinically she had no change when I switched her to nasal cannula oxygen. White blood cell count 18.1, creatinine 1.01. Procalcitonin unchanged from 0.1 on 06/23/2025 20.1 today. CRP today 13.0. BNP has improved from 3630 on 06/22/2025 to 2770 today. she has been diuresed with Lasix 40 IV b.i.d.. Yesterday she was positive 379 mL. Cumulative she is positive 2.7 L since admission. Her heart rate was AFib 130-140 and I have discontinue levalbuterol. ABG on 10 L nasal cannula 7.37/45/54. There is no evidence of hypercarbic respiratory failure. Plan: Patient currently has no wheezing and given her uncontrolled atrial fibrillation with RVR, I will discontinue levalbuterol. I will initiate ipratropium nebulizers q.4 hours and increase budesonide nebulizer 0.5 mg b.i.d. In case she has reactive airways disease. Given major concern is for bronchopneumonia I will discontinue prednisone today. She has received 3 days of systemic steroids. 06/25/2025: Patient said she did well yesterday and slept well through the night. This morning she had gotten up to the chair and her heart rate increased to 170 and she had worsening shortness of breath. She denies any current cough, phlegm or hemoptysis. Currently she is on 10 L nasal cannula with saturation 96%. Her heart rate is 150-175 irregularly irregular. White blood cell count 1 6.2, creatinine 1.03 yesterday she was -500 mL. Cumulative she is positive 2.0 L since admission. Her weight today is 90.2. Joint Setter has been notified regarding her AFib with RVR. Plan: Overall patient thought her breathing was doing better yesterday. Continue treatment for pneumonia, AFib RVR with fluid overload. Today her AFib with RVR is uncontrolled. She remains on 10 L with saturations 96%. I will not try to decrease the oxygen as she is having shortness of breath with her AFib RVR. Continue treatment for pneumonia, AFib RVR with fluid overload. 06/26/25: Patient was agitated and had pain through the night and is receive narcotics, BuSpar, on gabapentin, risperidone as well. The pulse morning says she is breathing worse, worse cough with no phlegm and no hemoptysis. She is lethargic and I ordered a stat ABG on 7 L nasal cannula shows 7.42/50/74. Her heart rate was 120 and she is scheduled to receive her diltiazem and metoprolol. I called the nurse back in an hour and her heart rate now is 70- 80, her respiratory status has improved and she is on 4 L nasal cannula saturations 93-95%. She is afebrile. White blood cell count 11.1, creatinine 0.84. Yesterday she was -640 mL. Cumulative she is positive 1.6 L since admission. her weight today is 84.3 kg. Her BNP is worse from 2770 on 06/24/2025 to 5330. Her CRP is increased from 13 on 06/24/2025 to 18.2 today. Her chest x-ray today shows continued infiltrates and congestion with no significant change from 06/23/2025. Plan: Patient continues with anxiety and pain which complicate her cardiac and respiratory issues. When she is calm and relaxed her heart rate is 70-80 and her nasal cannula oxygen can be decreased. Currently she is relaxed with AFib 70-80 and she has decreased to 4 L nasal cannula. Continue treatment for pneumonia, AFib with RVR and fluid overload. She is given 40 of Lasix today. Goal saturation 90-94%. Wean as tolerated. Discussed with Dr. Foster, will follow with you. (2) Pneumonia: Qualifiers: Laterality: bilateral Lung location: unspecified part of lung Pneumonia type: due to unspecified organism Qualified Code(s): J18.9 - Pneumonia, unspecified organism Code(s): J18.9 - Pneumonia, unspecified organism Status: Acute Assessment and Plan: Patient presents with worsening respiratory symptoms, no leukocytosis, afebrile, COVID influenza RSV RT PCR assay negative, MRSA swab negative, chest x-ray with small effusions and congestion and a CT scan with bilateral infiltrates. CT scan of the chest 06/23/2025 compared to 05/06/2025 shows new bilateral upper lobe infiltrates right greater than left small medial segment of the right middle lobe infiltrate lingular infiltrates with very small left pleural effusion. These ground-glass infiltrates are new since 05/06/2025 there is no evidence of chronic interstitial lung disease, bullous emphysema, nodules or masses. ceftriaxone x1 dose 06/22 Plan: I will discontinue vancomycin. I am no evidence for anaerobic lung infection will discontinue metronidazole. Will continue levofloxacin 750 mg Q 48 hours and doxycycline 100 q.12. I will send a repeat COVID influenza RSV RT PCR assay. I will send respiratory pathogen panel, urine for Legionella antigen, urine for pneumococcal antigen and serum for mycoplasma IgM. COVID, influenza, RSV RT PCR assay negative 06/22 and 06/24. Respiratory pathogen panel, urine for Legionella antigen, urine for pneumococcal antigen and serum mycoplasma IgM pending 06/25/2025: Patient was improving 3 yesterday. Afebrile, White blood cell count 16.2, she has no cough, phlegm or hemoptysis. Plan: Continue treatment for pneumonia with doxycycline started 06/22/2025, day 4 and l levofloxacin started 06/23/2025. Status post ceftriaxone x1 dose on 06/22/2025. Status post vancomycin 1 dose on 06/23/2025. Status post Flagyl 06/23 through 06/25 AFib RVR with fluid overload, 06/26/25: No progression of her chest x-ray, leukocytosis is improving, afebrile, oxygen Nation is improving. Plan: Continue doxycycline, day 5 and levofloxacin day 3. (3) Acute exacerbation of CHF (congestive heart failure): Qualifiers: Heart failure type: diastolic Qualified Code(s): I50.33 - Acute on chronic diastolic (congestive) heart failure Code(s): I50.9 - Heart failure, unspecified Status: Acute Assessment and Plan: Patient with fluid overload and AFib with RVR. 06/24/25: BNP has improved from 3630 on 06/22/2025 to 2770 today. she has been diuresed with Lasix 40 IV b.i.d.. Yesterday she was positive 379 mL. Cumulative she is positive 2.7 L since admission. Her heart rate was AFib 130- 14o Plan: Management per webmethods consultant and hospitalist teams. Recommended as aggressive diuresis as tolerated by patient's cardiac and renal systems. I have discontinue levalbuterol. Patient has been switched to 40 mg p.o. q.day start time 5:00 p.m.. 06/25/25: This morning she had gotten up to the chair and her heart rate increased to 170 and she had worsening shortness of breath. creatinine 1.03 yesterday she was -500 mL. Cumulative she is positive 2.0 L since admission. Her weight today is 90.2. Joint Setter has been notified regarding her AFib with RVR. Plan: Management per webmethods consultant and hospitalist team. Currently on Lasix 40 q.day. 06/26/25: yesterday she was -640 mL. Cumulative she is positive 1.6 L since admission. her weight today is 84.3 kg. Her BNP is worse from 2770 on 06/24/2025 to 5330. Plan: Management per webmethods consultant and hospitalist teams. Consider higher doses of Lasix. Subjective Date/time seen: 06/26/25 09:17 Interval history: 06/24/2025: This is a new pulmonary consult for respiratory failure. 74-year-old with a history of CHF, DM, HTN, GERD, HLD, COPD patient is followed in the Pulmonary Clinic in last seen on 04/02/2025: This is note and plan. 3 month follow-up regarding coughing. Hx: CHF, DM, HTN, GERD, HLD, COPD. Sees [facility] cardiology. She was hospitalized last month 02/22/25 from 02/25 regarding afib RVR, NAT, CHF, and pneumonia. CXR showed confluent opacity in the lower 3rd of the left hemithorax which is a slightly increased in size, small patchy opacities in the right lower lung. CTA of the chest showed a few small ground-glass and patchy opacities in both lungs more prominent in the lower lungs, small left pleural effusion, tiny right pleural effusion, several low-density indeterminate lesions scattered throughout the liver, indeterminate 2.3 cm left adrenal nodule. She was tx with abx for PNA, Cardizem gtt for afib, fluid bolus for NAT, and Lasix for CHF. She went to the ER 3 days after discharge as the metoprolol dose was increased prior and she was having lightheadedness, heart racing, and low BP. Chest x-ray showing likely a small pleural effusion on the left. Recommended follow-up with cardiology. Prior to her hospitalization, she called our office c/o dyspnea, dry coughing, and wheezing. CXR showed Bibasilar infiltrates may represent atelectasis or pneumonia. No significant change. Small pleural effusions. She was tx with doxycycline on 02/12. Today she reports improvement in symptoms since discharge. HAMMER is better and she is not coughing as much as she previously did. Tessalon Perles seem to help. She was to be setup on nebulizer with Duonebs last visit. However she reports she never got it. She has been using her rescue inhaler 2x/day which she feels helps. She reports unchanged symptoms of wheezing at times. Otherwise denies chest pains/tightness, fever, hemoptysis, or nighttime breathing issues. Current smoker 6 cigs/day. Smoker for 10 year 0.5ppd. Denies family hx of lung disease. Weight 175 lb room air saturations 95% plan: PFTs with prism. . Astepro did not help her coughing. Resend an order for nebulizer with DuoNebs p.r.n.. Pleural effusions: CT scan of the chest. 05/06/2025: CT scan of the chest with a very small left pleural effusion, discoid atelectasis anterior left lower lobe and minimal right dependent atelectasis in the right lower lobe. No emphysematous changes. No nodules or masses. 06/17/2025: Patient presented to the emergency room with dyspnea on exertion for 2-3 days, wheezing, room air saturations 95%. Chest x-ray with no acute abnormalities. Patient was diagnosed with bronchitis and treated with prednisone x5 days. Patient took this prednisone as prescribed but 1 day after finishing the prednisone she had worsening shortness of breath. 06/22/2025 patient presented to the emergency department with worsening shortness of breath, cough, wheezes the felt like worsening COPD exacerbation. Blood pressure 110/58, heart rate 81, respirations 22, room air saturations 86%. Patient was placed on 3 L nasal cannula saturations were 98%. She had diffuse wheezes. White blood cell count was 10.9, eosinophils 0.6%. BNP 3630. Creatinine 1.09. COVID influenza RSV RT PCR assay negative. Chest x-ray showed small effusions with congestion. She was given 2 L IV fluid, Solu-Medrol, Lasix 20 IV, ceftriaxone and doxycycline. MRSA swab was negative. 06/23/2025: Patient developed AFib RVR requiring IV metoprolol and IV diltiazem. She had worsening oxygenation requiring Airvo at 8:00 p.m. 45 L, 80% FiO2 with saturations 92%. Antibiotics were changed to vancomycin and Levaquin. Her MRSA swab was negative and vancomycin was discontinued. 06/24/2025: Patient tells me she has improved. She has 50% back to her normal. Her cough is essentially resolved. She denies phlegm or hemoptysis. She has no wheezing. When I enter the room she was on Airvo 40 L, 66% FiO2 with saturations 96%. The placed her on 15 L nasal cannula and sequentially decreased her to 10 L nasal cannula saturations 93%. Clinically she had no change when I switched her to nasal cannula oxygen. White blood cell count 18.1, creatinine 1.01. Procalcitonin unchanged from 0.1 on 06/23/2025 20.1 today. CRP today 13.0. BNP has improved from 3630 on 06/22/2025 to 2770 today. she has been diuresed with Lasix 40 IV b.i.d.. Yesterday she was positive 379 mL. Cumulative she is positive 2.7 L since admission. Her heart rate was AFib 130-140 and I have discontinue levalbuterol. 06/25/2025: Patient said she did well yesterday and slept well through the night. This morning she had gotten up to the chair and her heart rate increased to 170 and she had worsening shortness of breath. She denies any current cough, phlegm or hemoptysis. Currently she is on 10 L nasal cannula with saturation 96%. Her heart rate is 150-175 irregularly irregular. White blood cell count 16.2, creatinine 1.03 yesterday she was -500 mL. Cumulative she is positive 2.0 L since admission. Her weight today is 90.2. Joint Setter has been notified regarding her AFib with RVR. 06/26/25: Patient was agitated and had pain through the night and is receive narcotics, BuSpar, on gabapentin, risperidone as well. The pulse morning says she is breathing worse, worse cough with no phlegm and no hemoptysis. She is lethargic and I ordered a stat ABG on 7 L nasal cannula shows 7.42/50/74. Her heart rate was 120 and she is scheduled to receive her diltiazem and metoprolol. I called the nurse back in an hour and her heart rate now is 70- 80, her respiratory status has improved and she is on 4 L nasal cannula saturations 93-95%. She is afebrile. White blood cell count 11.1, creatinine 0.84. Yesterday she was -640 mL. Cumulative she is positive 1.6 L since admission. her weight today is 84.3 kg. Her BNP is worse from 2770 on 06/24/2020 5-5330. Her CRP is increased from 13 on 06/24/2025 218.2 today. Her chest x-ray today shows continued infiltrates and congestion with no significant change from 06/23/2025. DATA: 06/23/25: EXAMINATION: CT diagnostic chest wo con, 06/23/2025 18:00 SOLVENT RECOVERER HISTORY: Pulm edema vs pneumnia COMPARISON: No comparisons available. FINDINGS: No significant coronary calcification is present ([id number]) LUNGS: Trace left pleural effusion. Trace right pleural effusion. No tracheomalacia. No bronchiectasis. Minimal emphysematous changes. Mild pulmonary fibrotic changes. There are bilateral areas of groundglass attenuation with infiltrates in the upper lobes bilaterally, the left lower lobe and the right lower lobe as well as the right middle lobe. Scattered micronodules are noted which are probably infectious. HEART AND PERICARDIUM: Mild cardiomegaly. Trace pericardial effusion. AORTA: Normal caliber aorta. ADENOPATHY/MEDIASTINUM: None. LIMITED VIEWS OF THE ABDOMEN: Complex appearing liver cysts the largest right lobe liver 1 x 1 cm. Right kidney renal calculi noted the largest mid pole 3 mm with partially imaged probable renal cyst 2 x 2 cm. Left kidney renal calculi the largest mid pole 2 mm. There is thickening of the adrenal glands bilaterally with left adrenal nodule 1 x 1 cm probable benign adrenal adenoma. Small hiatal hernia noted. OSSEOUS STRUCTURES: No acute osseous abnormality.No suspicious lesions. OVERLYING SOFT TISSUES: Unremarkable. THYROID: The thyroid is unremarkable. IMPRESSION: Severe bilateral bronchopneumonia. Follow-up recommended to assess resolution. 06/22/25: Echo Summary 1. Left ventricular systolic function is hyperdynamic, estimated at >70. 2. There is mildly increased left ventricular wall thickness. 3. The left ventricular diastolic function is abnormal. 4. Left atrial chamber dimension is mildly enlarged. 5. There is small pericardial effusion. 6. atrial fibrillation with RVR. Right Ventricle Right ventricular chamber dimension is normal. Right ventricular systolic function is normal. Left Atria Left atrial chamber dimension is mildly enlarged. Right Atria Right atrial chamber dimension is normal. No tricuspid regurg and no PASP calculated 05/06/25: EXAMINATION: CT diagnostic chest wo con INDICATION: J90 - Pleural effusion, not elsewhere classified COMPARISON: CT dated 02/22/2025 FINDINGS: Tiny left pleural effusion. Discoid atelectasis in the left upper lobe and lingula along the major fissure. Compressive atelectasis in the anterior basilar left lower lobe along side the enlarged heart discoid and basilar atelectasis in the right lower lobe and atelectasis at the posterior medial aspect of the right middle lobe. No pulmonary edema, pneumonia or right-sided pleural effusion. Atherosclerotic coronary artery calcification is. No pericardial effusion. Thoracic aorta is normal in caliber. No pathologically enlarged thoracic lymphadenopathy. Multiple scattered small bilateral nonobstructing renal stones the largest in the right kidney measuring 4-5 mm. 3.3 cm right renal cyst. There are also several smaller cysts in the liver measuring up to 1.4 cm. 1.5 cm low- attenuation left adrenal adenoma. Mild thoracic dextroscoliosis with moderate to severe spondylosis. T10 hemangioma. C5-C7 anterior spinal fusion with anterior plate and screw fixation.. IMPRESSION: 1. Very small left pleural effusion and scattered atelectasis in the left mid and bilateral lower lung zones. 2. Cardiomegaly. 3. Bilateral nonobstructing nephrolithiasis. 03/30/25: EXAMINATION: MR abdomen wo/w con INDICATION: Liver disease, unspecified. TECHNIQUE: Magnetic resonance imaging (MRI) of the abdomen was performed without and with 15 mL MultiHance intravenous contrast. COMPARISON: Abdomen MRI 01/18/2020 FINDINGS: Cardiomegaly is noted. No pericardial effusion. There is trace pleural effusions. There is diffuse hepatic steatosis. There are cysts in the liver measuring up to 11 mm. The gallbladder is absent. The common duct measures 12 mm in diameter, likely not clinically significant given the normal liver function tests on 03/27/2025. The spleen, pancreas, and right adrenal gland are normal. There is chronic thickening of left adrenal gland, likely benign. There are cysts in the kidneys measuring up to 3.8 cm on the right. There are no dilated loops of bowel. There are no pathologically enlarged lymph nodes. There is no free intraperitoneal fluid. IMPRESSION: 1. Diffuse hepatic steatosis. 02/22/2025: EXAMINATION: CTA chest PE protocol INDICATION: Palpitations. Atrial fibrillation. COMPARISON: 09/02/2017 FINDINGS: Cervical hardware. There is a mildly enlarged 1.4 cm subcarinal lymph node similar to the study from 09/02/2017. There are a few additional nonenlarged mediastinal and hilar lymph nodes. Several new low-density lesions scattered throughout the liver, the largest measures 1.5 cm in the right lobe of the liver. A Liver mass MRI is recommended. There is a too small to characterize low-attenuation lesion in the right kidney. Indeterminate 2.3 cm left adrenal nodule. An adrenal mass MRI is recommended. Heart is moderately enlarged. There are coronary artery calcifications. Thoracic aorta is not aneurysmal. Mild to moderate discredit disease in the thoracic aorta. Small left-sided pleural effusion. Bones appear osteopenic. Multilevel degenerative change in the visualized spine. Visualized tracheobronchial tree is patent. Tiny right-sided pleural effusion. Mild biapical scarring. There are a few small groundglass and patchy opacities in both lungs most prominent in the lower lobes. IMPRESSION: 1. There are a few small groundglass and patchy opacities in both lungs most prominent in the lower lobes. Differential includes but is not limited to atelectasis/scarring or infiltrates. 2. Small left-sided pleural effusion. Tiny right-sided pleural effusion. 3. Several new low-density indeterminate lesions scattered throughout the liver, the largest measures 1.5 cm in the right lobe of the liver. A Liver mass MRI is recommended. 4. Indeterminate 2.3 cm left adrenal nodule. An adrenal mass MRI is recommended. CXR 02/28/25 - Confluent opacity in the lower third of the left hemithorax. Differential includes a combination of pleural fluid with adjacent atelectasis and/or consolidation. An underlying mass is possible. Recommend follow-up to resolution. Consider a chest CT. Small patchy opacities in the right mid and lower lung. Differential includes metastasis/scarring or infiltrates. 12/12/2024: This is a pulmonary function test with pre and post-bronchodilator spirometry, plethysmography and diffusing capacity. The test was performed and results interpreted in accordance with the 2019 and 2005 ATS/ERS Task Force guidelines respectively using the Global Lung Function Initiative-2012 reference equations. Patient demonstrated good effort and cooperation. Reproducibility criteria were met. The quality of the pre bronchodilator spirometry maneuver was Grade A and post bronchodilator spirometry maneuver was Grade A. Findings: Spirometry: The contour the inspiratory and expiratory flow tracing are normal. The pre bronchodilator FVC is 1.90 L, 76% predicted. The pre bronchodilator FEV1 is 1.34 L, 69% predicted. The pre bronchodilator FEV1: FVC ratio 70%. The post bronchodilator FVC is 1.89 L, representing a 1% decrease. The post bronchodilator FEV1 is 1.37 L, representing a 3% increase. The post bronchodilator FEV1: FVC ratio is 73%. Plethysmography: The total lung capacity is 4.01 L, 87% predicted. The functional residual capacity is 2.42 L, 92% predicted. The residual volume is 2 .12 L, 102% predicted. Diffusing capacity: The diffusing capacity unadjusted for hemoglobin and carboxyhemoglobin is 10.0, 53% predicted. The diffusing capacity adjusted for alveolar volume is 3.03, 69% predicted. Impression: The FEV1 is less than 80% predicted and the FEV1: FVC ratio is greater than the lower limit of normal consistent with Preserved Ratio Impaired Spirometry (PRISm) with a normal FVC. The spirometry is normal without evidence of an obstructive abnormality. There is no significant improvement after inhaling a single dose of albuterol. The lung volumes are normal. The diffusing capacity unadjusted for hemoglobin and carboxyhemoglobin is moderately decreased and remains mildly decreased when adjusted for alveolar volume. There are no prior studies for comparison 12/12/2024: This is a 6 minute walk test. The test was performed and interpreted in accordance with the 2014 ERS/ATS task force guidelines. Of note, the last 2 minutes the patient used to wheeled walker due to back pain. Findings: The patient's resting room air oxygen saturation measured by pulse oximetry was 95%, the heart rate was 90 bpm, and the modified Thanh dyspnea score was 0. Patient ambulated for 213 meters and oxygen saturation remained 91 to 94%. At the end of the study the heart rate was 112 bpm and the modified Thanh dyspnea score was 0. The patient did not qualify for supplemental oxygen at rest or with ambulation. CXR 09/29/24 - Small left pleural effusion is present. Possible minimal right pleural effusion. Echo 10/23/22 - EF 55-60%, left ventricular diastolic function is abnormal, mild pulmHTN RVSP 46mmHg. 10/22/2022: EXAMINATION: CTA chest PE protocol INDICATION: Chest pain, shortness of breath and elevated d-dimer. COMPARISON: CT dated 09/02/2017 and chest x-ray dated 11/08/2022. FINDINGS: Study is technically limited for evaluation of right upper lobe pulmonary arteries due to motion and contrast bolus timing. No large central pulmonary embolism. Cardiomegaly. Small pleural effusions. There is mediastinal lymphadenopathy, likely reactive. Patchy groundglass opacities involving the upper lobes and right lower lobe. There is dependent atelectasis. No endobronchial lesions. No pneumothorax. No evidence for aortic aneurysm or dissection. There are multiple low-density lesions in the liver, largest in the right hepatic lobe showing 1.5 cm, compatible with a cyst. There is nodular thickening of the adrenal glands, likely secondary to benign adenomas. Moderate thoracic spondylosis. Surgical fusion changes present in the lower cervical spine. 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 IMPRESSION: 1. Patchy groundglass opacities, most confluent in the right upper lobe, consistent with pneumonia. 2: No large central pulmonary embolism. 3: Mediastinal lymphadenopathy, likely reactive. 4: Small pleural effusions. Review of Systems Constitutional: Constitutional: Reports no additional constitutional complaints Eyes: Eyes: Reports no additional eye complaints ENT: Reports system reviewed and no additional complaints, except as documented Cardiovascular: Cardiovascular: Reports no additional cardiovascular complaints Respiratory: Respiratory: Reports no additional respiratory complaints Gastrointestinal: Gastrointestinal: Reports no additional gastrointestinal complaints Musculoskeletal: Musculoskeletal: Reports no additional musculoskeletal complaints Neurologic: Reports system reviewed and no additional complaints, except as documented Psychiatric: Psychiatric: Reports no additional psychiatric complaints Endocrine: Endocrine: Reports no additional endocrine complaints Hematologic/Lymphatic: Hematologic/Lymphatic: Reports no additional hematologic/lymphatic complaints Allergic/Immunologic: Allergic/Immunologic: Reports no additional allergic/immunologic complaints Exam Const: General: cooperative, healthy appearing and comfortable Orientation/consciousness: oriented to person, oriented to place and oriented to time HENMT: Head: normal to inspection Ears: hearing grossly normal bilaterally Eyes: General: appearance normal, both eyes and all related structures Neck: Neck: normal visual inspection Chest: Chest palpation & inspection: normal inspection of the chest Resp: Effort & Inspection: normal respiratory effort and able to speak in complete sentences Auscultation: crackles, no rales, no rhonchi, no wheezes and lung sounds not diminished Other: Bibasilar crackles. Cardio: Jugular venous distension: no JVD GI: Inspection: normal to inspection Skin: General skin exam: normal color Neuro: General: oriented to person, oriented to place and oriented to time Extrem: General: normal to inspection Psych: Appearance: grossly normal Objective Data Vital Signs Vital Signs: Vital Signs - 24 hr 06/25/25 10:00 06/25/25 12:00 06/25/25 12:00 Temperature 36.8 C Pulse Rate 141 H 107 H 96 Respiratory Rate 24 H Blood Pressure 135/61 Pulse Oximetry 98 Oxygen Delivery Oxygen Flow Rate Fraction of Inspired Oxygen 06/25/25 13:20 06/25/25 13:28 06/25/25 14:00 Temperature Pulse Rate 106 H 110 H 117 H Respiratory Rate 24 H 24 H Blood Pressure Pulse Oximetry Oxygen Delivery Oxygen Flow Rate Fraction of Inspired Oxygen 06/25/25 16:00 06/25/25 16:00 06/25/25 17:03 Temperature 37.3 C Pulse Rate 98 101 H 103 H Respiratory Rate 22 H 24 H Blood Pressure 126/69 Pulse Oximetry 95 Oxygen Delivery Oxygen Flow Rate Fraction of Inspired Oxygen 06/25/25 17:10 06/25/25 18:00 06/25/25 19:11 Temperature Pulse Rate 110 H 117 H 116 H Respiratory Rate 24 H 20 Blood Pressure Pulse Oximetry Oxygen Delivery Oxygen Flow Rate Fraction of Inspired Oxygen 06/25/25 20:00 06/25/25 20:00 06/25/25 20:00 Temperature 37.4 C Pulse Rate 131 H 136 H 136 H Respiratory Rate 20 20 Blood Pressure 119/78 Pulse Oximetry 94 94 Oxygen Delivery High Flow Nasal Cannula Oxygen Flow Rate 8 Fraction of Inspired Oxygen 06/25/25 21:11 06/25/25 21:59 06/25/25 23:00 Temperature Pulse Rate 120 H 103 H 96 Respiratory Rate 17 Blood Pressure Pulse Oximetry Oxygen Delivery Oxygen Flow Rate Fraction of Inspired Oxygen 06/25/25 23:01 06/25/25 23:02 06/26/25 00:00 Temperature 37.4 C Pulse Rate 88 86 Respiratory Rate 17 20 Blood Pressure 100/56 L Pulse Oximetry 97 97 Oxygen Delivery Nasal Cannula Oxygen Flow Rate 8 Fraction of Inspired Oxygen 06/26/25 00:00 06/26/25 00:00 06/26/25 01:53 Temperature Pulse Rate 78 78 107 H Respiratory Rate 20 Blood Pressure Pulse Oximetry 97 Oxygen Delivery Nasal Cannula Oxygen Flow Rate 8 Fraction of Inspired Oxygen 06/26/25 03:24 06/26/25 03:24 06/26/25 04:00 Temperature 36.6 C Pulse Rate 122 H 122 H 133 H Respiratory Rate 20 20 Blood Pressure 143/84 H Pulse Oximetry 97 94 Oxygen Delivery Nasal Cannula Oxygen Flow Rate 10 Fraction of Inspired Oxygen 60 06/26/25 06:00 06/26/25 07:25 06/26/25 07:25 Temperature Pulse Rate 111 H 113 H Respiratory Rate 22 H Blood Pressure Pulse Oximetry 97 Oxygen Delivery High Flow Therapy with Na Oxygen Flow Rate 10 Fraction of Inspired Oxygen 06/26/25 07:30 06/26/25 07:33 06/26/25 07:40 Temperature 37.1 C Pulse Rate 117 H 110 H Respiratory Rate 20 24 H Blood Pressure 140/56 L Pulse Oximetry 96 97 Oxygen Delivery High Flow Nasal Cannula Oxygen Flow Rate 7 Fraction of Inspired Oxygen 06/26/25 07:56 06/26/25 08:04 06/26/25 08:21 Temperature Pulse Rate 106 H Respiratory Rate Blood Pressure Pulse Oximetry 92 89 L Oxygen Delivery High Flow Nasal Cannula High Flow Therapy with Na Oxygen Flow Rate 5 7 Fraction of Inspired Oxygen Intake/Output Intake/Output: Intake & Output 06/23/25 06/24/25 06/25/25 06/26/25 23:59 23:59 23:59 23:59 Intake Total 2079.9 1300 910 300 Output Total 1700 1800 1550 200 Balance 379.9 -500 -640 100 Meds/Results Medications: Active Medications Generic Name Dose Route Start Last Admin Trade Name Freq PRN Reason Stop Dose Admin Acetaminophen 650 mg 06/22/25 14:49 06/24/25 20:18 Acetaminophen 325 Mg Tablet PO 650 mg Q4H PRN Administration Mild Pain (1-3) or Fever Hydrocodone Bitart/Acetaminophen 1 tab 06/23/25 08:08 06/26/25 03:04 Hydrocodone/Acetaminophen (*Crx) 5-325 Mg Tablet PO 1 tab Q8H PRN Administration Pain Benzonatate 100 mg 06/22/25 16:14 06/26/25 07:56 Benzonatate 100 Mg Capsule PO 100 mg TID PRN Administration Cough Budesonide 0.5 mg 06/24/25 20:00 06/26/25 07:25 Budesonide Respule Neb 0.5 Mg/2 Ml Amp INHALATION 0.5 mg Q12HRT ROSE MARY Administration Buspirone HCl 2.5 mg/ 7.5 mg 06/25/25 09:53 06/26/25 05:56 Buspirone HCl 5 mg PO 7.5 mg Q8HR ROSE MARY Administration Dextrose 12.5 gm 06/22/25 15:39 Dextrose 50% 25 Gm/50 Ml Syringe IV PUSH PRN PRN Hypoglycemia Protocol Diltiazem HCl 60 mg 06/23/25 15:00 06/26/25 07:57 Diltiazem Hcl 60 Mg Tablet PO 60 mg Q6H ROSE MARY Administration Duloxetine HCl 60 mg 06/22/25 17:00 06/26/25 07:56 Duloxetine Hcl 60 Mg Capsule.Dr PO 60 mg BID ROSE MARY Administration Furosemide 40 mg 06/24/25 17:00 06/26/25 07:57 Furosemide 40 Mg Tablet PO 40 mg DAILY ROSE MARY Administration Gabapentin 800 mg 06/22/25 17:00 06/26/25 07:56 Gabapentin 400 Mg Capsule PO 800 mg QID ROSE MARY Administration Glucagon 1 mg 06/22/25 15:39 Glucagon For Inj 1 Mg Vial IM PRN PRN Hypoglycemia Protocol Glucose 15 gm 06/22/25 15:39 Glucose Oral Gel 15 Gm Of Glucse In 37.5 Gm Tube PO PRN PRN Hypoglycemia Protocol Guaifenesin 1,200 mg 06/24/25 21:00 06/26/25 07:55 Guaifenesin 12 Hr 600 Mg Tabcr PO 1,200 mg Q12HR ROSE MARY Administration Hydroxyzine HCl 25 mg 06/23/25 20:48 06/26/25 03:04 Hydroxyzine Hcl 25 Mg Tablet PO 25 mg TID PRN Administration anxiety Dextrose 1,000 mls @ 100 mls/hr 06/22/25 15:39 Dextrose 5% 1,000 Ml IVPB PRN PRN Hypoglycemia Protocol Doxycycline Hyclate 100 mg/ 100 mls @ 100 mls/hr 06/22/25 16:00 06/26/25 04:05 Sodium Chloride IVPB 06/27/25 04:59 Infused Q12H ROSE MARY Infusion Levofloxacin/Dextrose 750 mg in 150 mls @ 100 mls/hr 06/23/25 15:00 06/25/25 15:35 Levaquin 750 Mg/D5w 150 Ml IVPB Infused Q48H ROSE MARY Infusion Ipratropium [place] 0.5 mg 06/24/25 12:00 06/26/25 07:24 Ipratropium Br 0.02% Inh Soln 0.5 Mg/2.5 Ml Vial INHALATION 0.5 mg Q4HRT ROSE MARY Administration Losartan Potassium 25 mg 06/22/25 17:00 06/26/25 07:56 Losartan Potassium 25 Mg Tablet PO 25 mg BID ROSE MARY Administration Metoprolol Tartrate 50 mg 06/25/25 09:00 06/26/25 07:56 Metoprolol Tartrate 50 Mg Tab PO 50 mg Q12HR ROSE MARY Administration Nitroglycerin 0.4 mg 06/22/25 15:39 Nitroglycerin Sl 0.4 Mg Tablet SUBLINGUAL Q5MIN PRN Chest Pain Risperidone 1 mg 06/22/25 17:00 06/26/25 07:57 Risperidone 1 Mg Tablet PO 1 mg TID ROSE MARY Administration Rivaroxaban 20 mg 06/22/25 17:00 06/25/25 18:01 Rivaroxaban 20 Mg Tablet PO 20 mg DAILY@1700 ROSE MARY Administration Simvastatin 20 mg 06/22/25 21:00 06/25/25 21:10 Simvastatin 20 Mg Tablet PO 20 mg HS ROSE MARY Administration Vitamin D 50 mcg 06/23/25 09:00 06/26/25 07:56 Cholecalciferol (Vitamin D3) 25 Mcg (1,000 Units) Tablet PO 50 mcg DAILY ROSE MARY Administration Radiology Results: ITS Impressions Head CT 06/23/25 12:29 IMPRESSION: 1. No acute intracranial findings. Chest CT 06/23/25 18:21 IMPRESSION: Severe bilateral bronchopneumonia. Follow-up recommended to assess resolution. Chest X-Ray 06/26/25 08:11 Impression: CHF. Superimposed left lower lobe probable pneumonia. The findings appear relati vely unchanged Labs Labs: Laboratory Results - last 24 hr 06/25/25 06/26/25 06/26/25 04:07 04:29 08:53 WBC 11.1 H RBC 3.79 L Hgb 10.9 L Hct 34.8 L MCV 91.8 MCH 28.8 MCHC 31.3 L RDW 15.7 H Plt Count 251 MPV 11.2 H Immature Gran % (Auto) 0.5 Neut % (Auto) 76.6 H Lymph % (Auto) 11.6 L Reynolds % (Auto) 11.0 H Eos % (Auto) 0.1 Baso % (Auto) 0.2 Lymph # (Auto) 1.29 Reynolds # (Auto) 1.2 H Eos # (Auto) 0.0 Baso # (Auto) 0.0 Abs Immat Gran (auto) 0.05 H Absolute Neuts (auto) 8.5 H Absolute Nucleated RBC 0.000 Nucleated RBC % 0.0 Puncture Site Right radial ABG pH 7.418 ABG pCO2 49.7 H ABG pO2 74.3 L ABG PO2/FiO2 Ratio 1.86 ABG HCO3 31.4 H ABG O2 Saturation 95.0 ABG O2 Content 16.2 ABG Base Excess 5.8 A-a Gradient 153.7 Oxyhemoglobin 94.3 Total Hemoglobin 12.2 O2 Delivery Device Not Reportable O2 Liters/Min 10.0 FiO2 40 Sodium 144 Potassium 3.0 L Chloride 110 H Carbon Dioxide 31 H Anion Gap 3 L BUN 29 H Creatinine 0.84 Estim Creat Clear Calc 52 Estimated GFR > 60 Glucose 125 H Calcium 9.0 Magnesium 2.0 Total Bilirubin 0.5 AST 23 ALT 12 Alkaline Phosphatase 51 C-Reactive Protein 18.2 H NT-Pro-B Natriuret Pep 5330 H Total Protein 6.1 L Albumin 3.3 L [id number] 228 H
--- NOTE | 2025-06-26 09:28 | PM.IMPN2 ---
Assessment and Plan Assessment and Plan (1) COPD (chronic obstructive pulmonary disease): Qualifiers: COPD type: unspecified COPD Qualified Code(s): J44.9 - Chronic obstructive pulmonary disease, unspecified Code(s): J44.9 - Chronic obstructive pulmonary disease, unspecified Status: Chronic Assessment and Plan: New shortness of breath, chronic dry cough that initially improved with nebulizer in the ED on 06 17. However has been progressively more short of breath since then. Admitted on 06/22. Initial evaluation in the ED showed diffuse expiratory wheezing, new O2 requirement, and tachypnea. Modestly improved with nebulizers. - continue levalbuterol/HR vent scheduled - prednisone 40 mg daily x5 days, given Solu-Medrol in the ED initially - s/pceftriaxone and doxycycline on 06/22, allergy to erythromycin - Mucinex yudelka - continue supplemental O2 to maintain O2 sat greater than 92%, currently requiring 3L NC. No baseline requirement. (2) Atrial fibrillation with rapid ventricular response: Code(s): I48.91 - Unspecified atrial fibrillation Status: Acute Assessment and Plan: Patient arrived in NSR. Post multiple breathing treatments she developed AFib RVR, has history of AFib. Minimal response with metoprolol 5 mg IV x2. Given home metoprolol dose orally. Remains in the 120s, intermittently in the 150s. If no improvement with third dose of IV metoprolol, will transition to IV diltiazem. - admission to IMU - telemetry monitoring - Continue Cardizem and Metoprolol per cardiology, monitor HR - TSH reviewed, 1.44 on 02/23/2025 - continue Xarelto (3) Acute exacerbation of CHF (congestive heart failure): Qualifiers: Heart failure type: diastolic Qualified Code(s): I50.33 - Acute on chronic diastolic (congestive) heart failure Code(s): I50.9 - Heart failure, unspecified Status: Acute Assessment and Plan: CXR concerning for small bilateral pleural effusions with vascular changes which may represent mild vascular congestion or atypical inflammatory/infectious process. Denies any new peripheral edema or weight gain, does report she is at 3 lb of weight gain over the past few months however does not feel it is fluid related. Last echo on file in 2022 which showed EF of 55-60%, diastolic dysfunction, LV wall thickness increased, LA chamber moderately enlarged, mild pulmonary hypertension, trivial pericardial effusion. - update echo - monitor I&Os daily weights - s/p IV Lasix , now on Lasix 40mg daily increased to b.i.d. (4) Elevated troponin: Code(s): R79.89 - Other specified abnormal findings of blood chemistry Status: Acute Assessment and Plan: Likely type 2 given new hypoxia. Was 86% on room air due to COPD exacerbation. Troponin currently downtrending. No reports of chest pain. Does have some chest tightness with exertion, however shortness of breath significantly worsens with exertion as well. Now additionally in AFib RVR secondary to nebulizer treatments. EKG reviewed, no significant ST depressions or elevations. PACs and PVCs now present when compared to previous. - trend troponin - SL nitro p.r.n. (5) Hypertension: Qualifiers: Hypertension type: primary hypertension Qualified Code(s): I10 - Essential (primary) hypertension Code(s): I10 - Essential (primary) hypertension Status: Chronic Assessment and Plan: - chronic, currently 157/53, stable. - continue home medications: Losartan 25 mg b.i.d.. Holding metoprolol, see above. - monitor (6) Diabetes mellitus: Qualifiers: Diabetes mellitus complication status: without complication Diabetes mellitus long-term insulin use: without long term care pharmacist use Diabetes mellitus type: type 2 Qualified Code(s): E11.9 - Type 2 diabetes mellitus without complications Code(s): E11.9 - Type 2 diabetes mellitus without complications Status: Chronic Assessment and Plan: Diet controlled. Last A1c 5.9% on 03/27/2025. - hypoglycemia protocol p.r.n. Plan Acute hypoxemic respiratory failure on HFNC Severe bilateral bronchopneumonia, CT chest reviewed CXR showed bilateral infiltrates MRSA negative Continue Levaquin and Doxycycline Increase Lasix 40mg po daily to b.i.d. titrate oxygen monitor Pulmonology following Diet: Heart healthy DVT Prophylaxis: Xarelto Lines/Tubes: pIV Code Status: Full code Subjective Date/time seen: 06/26/25 09:28 Interval history: Patient was admitted due to pneumonia and during the course of hospitalization complicated with AFib with RVR and also patient has a history of chronic anxiety. Patient is anxious sometimes which makes her trouble in breathing and also elevates her heart rate. As per daughter patient has history of anxiety and depression. Consulted Psychiatry. Started on Ativan 0.5 mg p.o. q.d. p.r.n. for anxiety. Patient is already started on BuSpar. Her BNP is increased from 2770 to 5330. Will increase Lasix from 40 mg p.o. q.d. to b.i.d. Review of Systems Review of Systems: All systems reviewed & are unremarkable except as noted in HPI and below Exam Const: General: comfortable and no acute distress Other: , female, elderly, nontoxic appearance HENMT: Face/Nose/Sinus: Normal nares present Mouth: Yes moist mucous membranes Eyes: General: appearance normal, both eyes and all related structures Sclera: sclerae normal Pupils: Equal, round and reactive pupils present EOM: EOMs intact bilaterally Resp: Other: Faint expiratory wheeze, mild tachypnea (ambulated to the restroom just prior to exam). No crackles appreciated. Cardio: Rate: tachycardic Rhythm: abnormal rhythm (Consistent with AFib) Other: S1-S2 present without murmur, rub, ectopy GI: Other: Abdomen soft, nondistended, nontender. Normoactive bowel sounds in all quadrants. Skin: General skin exam: normal color and no rashes or lesions noted Wounds: no wounds Neuro: Cranial nerves: Yes Equal, round and reactive pupils present Speech: normal speech Motor exam (neuro): 5/5 motor strength present throughout Sensory Exam: normal sensation Other: A&O x4 Extrem: Other: Trace edema to the bilateral ankles, symmetric and nonpitting Psych: Mental Status: mental status grossly normal Affect: normal affect Other: Good insight and judgment. Objective Data Vital Signs Vital Signs: Vital Signs - 24 hr 06/25/25 10:00 06/25/25 12:00 06/25/25 12:00 Temperature 98.2 F Pulse Rate 141 H 107 H 96 Respiratory Rate 24 H Blood Pressure 135/61 Pulse Oximetry 98 Oxygen Delivery Oxygen Flow Rate Fraction of Inspired Oxygen 06/25/25 13:20 06/25/25 13:28 06/25/25 14:00 Temperature Pulse Rate 106 H 110 H 117 H Respiratory Rate 24 H 24 H Blood Pressure Pulse Oximetry Oxygen Delivery Oxygen Flow Rate Fraction of Inspired Oxygen 06/25/25 16:00 06/25/25 16:00 06/25/25 17:03 Temperature 99.2 F Pulse Rate 98 101 H 103 H Respiratory Rate 22 H 24 H Blood Pressure 126/69 Pulse Oximetry 95 Oxygen Delivery Oxygen Flow Rate Fraction of Inspired Oxygen 06/25/25 17:10 06/25/25 18:00 06/25/25 19:11 Temperature Pulse Rate 110 H 117 H 116 H Respiratory Rate 24 H 20 Blood Pressure Pulse Oximetry Oxygen Delivery Oxygen Flow Rate Fraction of Inspired Oxygen 06/25/25 20:00 06/25/25 20:00 06/25/25 20:00 Temperature 99.4 F Pulse Rate 131 H 136 H 136 H Respiratory Rate 20 20 Blood Pressure 119/78 Pulse Oximetry 94 94 Oxygen Delivery High Flow Nasal Cannula Oxygen Flow Rate 8 Fraction of Inspired Oxygen 06/25/25 21:11 06/25/25 21:59 06/25/25 23:00 Temperature Pulse Rate 120 H 103 H 96 Respiratory Rate 17 Blood Pressure Pulse Oximetry Oxygen Delivery Oxygen Flow Rate Fraction of Inspired Oxygen 06/25/25 23:01 06/25/25 23:02 06/26/25 00:00 Temperature 99.3 F Pulse Rate 88 86 Respiratory Rate 17 20 Blood Pressure 100/56 L Pulse Oximetry 97 97 Oxygen Delivery Nasal Cannula Oxygen Flow Rate 8 Fraction of Inspired Oxygen 06/26/25 00:00 06/26/25 00:00 06/26/25 01:53 Temperature Pulse Rate 78 78 107 H Respiratory Rate 20 Blood Pressure Pulse Oximetry 97 Oxygen Delivery Nasal Cannula Oxygen Flow Rate 8 Fraction of Inspired Oxygen 06/26/25 03:24 06/26/25 03:24 06/26/25 04:00 Temperature 97.8 F Pulse Rate 122 H 122 H 133 H Respiratory Rate 20 20 Blood Pressure 143/84 H Pulse Oximetry 97 94 Oxygen Delivery Nasal Cannula Oxygen Flow Rate 10 Fraction of Inspired Oxygen 60 06/26/25 06:00 06/26/25 07:25 06/26/25 07:25 Temperature Pulse Rate 111 H 113 H Respiratory Rate 22 H Blood Pressure Pulse Oximetry 97 Oxygen Delivery High Flow Therapy with Na Oxygen Flow Rate 10 Fraction of Inspired Oxygen 06/26/25 07:30 06/26/25 07:33 06/26/25 07:40 Temperature 98.8 F Pulse Rate 117 H 110 H Respiratory Rate 20 24 H Blood Pressure 140/56 L Pulse Oximetry 96 97 Oxygen Delivery High Flow Nasal Cannula Oxygen Flow Rate 7 Fraction of Inspired Oxygen 06/26/25 07:56 06/26/25 08:04 06/26/25 08:21 Temperature Pulse Rate 106 H Respiratory Rate Blood Pressure Pulse Oximetry 92 89 L Oxygen Delivery High Flow Nasal Cannula High Flow Therapy with Na Oxygen Flow Rate 5 7 Fraction of Inspired Oxygen 06/26/25 09:15 Temperature Pulse Rate Respiratory Rate Blood Pressure Pulse Oximetry 99 Oxygen Delivery High Flow Therapy with Na Oxygen Flow Rate 4 Fraction of Inspired Oxygen Intake/Output Intake/Output: Intake & Output 06/23/25 06/24/25 06/25/25 06/26/25 23:59 23:59 23:59 23:59 Intake Total 2079.9 1300 910 300 Output Total 1700 1800 1550 200 Balance 379.9 -500 -640 100 Meds/Results Medications: Active Medications Generic Name Dose Route Start Last Admin Trade Name Freq PRN Reason Stop Dose Admin Acetaminophen 650 mg 06/22/25 14:49 06/24/25 20:18 Acetaminophen 325 Mg Tablet PO 650 mg Q4H PRN Administration Mild Pain (1-3) or Fever Hydrocodone Bitart/Acetaminophen 1 tab 06/23/25 08:08 06/26/25 03:04 Hydrocodone/Acetaminophen (*Crx) 5-325 Mg Tablet PO 1 tab Q8H PRN Administration Pain Benzonatate 100 mg 06/22/25 16:14 06/26/25 07:56 Benzonatate 100 Mg Capsule PO 100 mg TID PRN Administration Cough Budesonide 0.5 mg 06/24/25 20:00 06/26/25 07:25 Budesonide Respule Neb 0.5 Mg/2 Ml Amp INHALATION 0.5 mg Q12HRT YUDELKA Administration Buspirone HCl 2.5 mg/ 7.5 mg 06/25/25 09:53 06/26/25 05:56 Buspirone HCl 5 mg PO 7.5 mg Q8HR YUDELKA Administration Dextrose 12.5 gm 06/22/25 15:39 Dextrose 50% 25 Gm/50 Ml Syringe IV PUSH PRN PRN Hypoglycemia Protocol Diltiazem HCl 60 mg 06/23/25 15:00 06/26/25 07:57 Diltiazem Hcl 60 Mg Tablet PO 60 mg Q6H YUDELKA Administration Duloxetine HCl 60 mg 06/22/25 17:00 06/26/25 07:56 Duloxetine Hcl 60 Mg Capsule.Dr PO 60 mg BID YUDELKA Administration Furosemide 40 mg 06/24/25 17:00 06/26/25 07:57 Furosemide 40 Mg Tablet PO 40 mg DAILY YUDELKA Administration Gabapentin 800 mg 06/22/25 17:00 06/26/25 07:56 Gabapentin 400 Mg Capsule PO 800 mg QID YUDELKA Administration Glucagon 1 mg 06/22/25 15:39 Glucagon For Inj 1 Mg Vial IM PRN PRN Hypoglycemia Protocol Glucose 15 gm 06/22/25 15:39 Glucose Oral Gel 15 Gm Of Glucse In 37.5 Gm Tube PO PRN PRN Hypoglycemia Protocol Guaifenesin 1,200 mg 06/24/25 21:00 06/26/25 07:55 Guaifenesin 12 Hr 600 Mg Tabcr PO 1,200 mg Q12HR YUDELKA Administration Hydroxyzine HCl 25 mg 06/23/25 20:48 06/26/25 03:04 Hydroxyzine Hcl 25 Mg Tablet PO 25 mg TID PRN Administration anxiety Dextrose 1,000 mls @ 100 mls/hr 06/22/25 15:39 Dextrose 5% 1,000 Ml IVPB PRN PRN Hypoglycemia Protocol Doxycycline Hyclate 100 mg/ 100 mls @ 100 mls/hr 06/22/25 16:00 06/26/25 04:05 Sodium Chloride IVPB 06/27/25 04:59 Infused Q12H YUDELKA Infusion Levofloxacin/Dextrose 750 mg in 150 mls @ 100 mls/hr 06/23/25 15:00 06/25/25 15:35 Levaquin 750 Mg/D5w 150 Ml IVPB Infused Q48H YUDELKA Infusion Ipratropium [place] 0.5 mg 06/24/25 12:00 06/26/25 07:24 Ipratropium Br 0.02% Inh Soln 0.5 Mg/2.5 Ml Vial INHALATION 0.5 mg Q4HRT YUDELKA Administration Losartan Potassium 25 mg 06/22/25 17:00 06/26/25 07:56 Losartan Potassium 25 Mg Tablet PO 25 mg BID YUDELKA Administration Metoprolol Tartrate 50 mg 06/25/25 09:00 06/26/25 07:56 Metoprolol Tartrate 50 Mg Tab PO 50 mg Q12HR YUDELKA Administration Nitroglycerin 0.4 mg 06/22/25 15:39 Nitroglycerin Sl 0.4 Mg Tablet SUBLINGUAL Q5MIN PRN Chest Pain Risperidone 1 mg 06/22/25 17:00 06/26/25 07:57 Risperidone 1 Mg Tablet PO 1 mg TID YUDELKA Administration Rivaroxaban 20 mg 06/22/25 17:00 06/25/25 18:01 Rivaroxaban 20 Mg Tablet PO 20 mg DAILY@1700 YUDELKA Administration Simvastatin 20 mg 06/22/25 21:00 06/25/25 21:10 Simvastatin 20 Mg Tablet PO 20 mg HS YUDELKA Administration Vitamin D 50 mcg 06/23/25 09:00 06/26/25 07:56 Cholecalciferol (Vitamin D3) 25 Mcg (1,000 Units) Tablet PO 50 mcg DAILY YUDELKA Administration Radiology Results: ITS Impressions Head CT 06/23/25 12:29 IMPRESSION: 1. No acute intracranial findings. Chest CT 06/23/25 18:21 IMPRESSION: Severe bilateral bronchopneumonia. Follow-up recommended to assess resolution. Chest X-Ray 06/26/25 08:11 Impression: CHF. Superimposed left lower lobe probable pneumonia. The findings appear relatively unchanged Labs Labs: Laboratory Results - last 24 hr 06/25/25 06/26/25 06/26/25 04:07 04:29 08:53 WBC 11.1 H RBC 3.79 L Hgb 10.9 L Hct 34.8 L MCV 91.8 MCH 28.8 MCHC 31.3 L RDW 15.7 H Plt Count 251 MPV 11.2 H Immature Gran % (Auto) 0.5 Neut % (Auto) 76.6 H Lymph % (Auto) 11.6 L [place] % (Auto) 11.0 H Eos % (Auto) 0.1 Baso % (Auto) 0.2 Lymph # (Auto) 1.29 [place] # (Auto) 1.2 H Eos # (Auto) 0.0 Baso # (Auto) 0.0 Abs Immat Gran (auto) 0.05 H Absolute Neuts (auto) 8.5 H Absolute Nucleated RBC 0.000 Nucleated RBC % 0.0 Puncture Site Right radial ABG pH 7.418 ABG pCO2 49.7 H ABG pO2 74.3 L ABG PO2/FiO2 Ratio 1.86 ABG HCO3 31.4 H ABG O2 Saturation 95.0 ABG O2 Content 16.2 ABG Base Excess 5.8 A-a Gradient 153.7 Oxyhemoglobin 94.3 Total Hemoglobin 12.2 O2 Delivery Device Not Reportable O2 Liters/Min 10.0 FiO2 40 Sodium 144 Potassium 3.0 L Chloride 110 H Carbon Dioxide 31 H Anion Gap 3 L BUN 29 H Creatinine 0.84 Estim Creat Clear Calc 52 Estimated GFR > 60 Glucose 125 H Calcium 9.0 Magnesium 2.0 Total Bilirubin 0.5 AST 23 ALT 12 Alkaline Phosphatase 51 C-Reactive Protein 18.2 H NT-Pro-B Natriuret Pep 5330 H Total Protein 6.1 L Albumin 3.3 L [id number] 228 H Quality VTE Prophylaxis VTE prophylaxis: pharmacologic ordered Hospitalist MIPS Advance Care Plan I have confirmed that the patient's Advanced Care Plan is present, code status is documented, or surrogate decision maker is listed in patient medical record.: Yes Medication Reconciliation I have utilized all available resources to obtain, update and review the patients current medications (includes all prescriptions, OTC, herbals, cannabis, and nutritional supplements).: Yes
[2025-06-26] MEDS: LORazepam (*CRX) 0.5 MG TABLET PO ×2 (12:53→20:58)
[2025-06-26] MEDS: POTASSIUM CHLORIDE 20 MEQ ER TABLET 40 MEQ PO (12:53)
[2025-06-26] MEDS: levoFLOXacin 750 MG/D5W 150 ML 750 MG/150 ML BAG 100 MG IVPB (12:53)
[2025-06-26] MEDS: RIVAROXABAN 20 MG TABLET PO (16:07)
[2025-06-26] MEDS: hydrOXYzine HCL 12.5 MG TABLET PO (16:16)
--- NOTE | 2025-06-26 18:02 | WPDCNPSYCH ---
Assessment and Plan Assessment and plan (1) Acute stress reaction: Code(s): F43.0 - Acute stress reaction Status: Acute Plan Patient?s acute anxiety and transient disorientation are situational and appear secondary to her medical decompensation (hypoxemic respiratory failure and cardiac instability). Symptoms are expected to improve as her underlying medical conditions stabilize. Non-pharmacologic interventions: Quiet, calm environment with minimal disturbances. Cluster care to avoid frequent awakenings. Upright positioning and coached slow diaphragmatic/pursed-lip breathing during anxiety episodes. Reassurance and orientation with presence of familiar objects/family input when possible. Staff to monitor early anxiety signs and implement above interventions before PRN meds. Psychiatric Medication Changes ? Recommended Duloxetine Change from 60 mg BID to 60 mg daily - Reduce sympathetic activation during acute AFib with RVR and hypoxemic illness - follow up with primary prescriber as an outpatient to adjust dose if needed (keep at 60 mg daily) Risperidone - patient is receiving 1 mg TID at the hospital and her home dose is 1 mg BID.- I verified this with her pharmacy - Do not escalate unless patient demonstrates severe agitation with risk to self/staff - recommend 0.5 mg in the morning and 1 mg at night- this will also help with sleep schedule and daytime fatigue Gabapentin Reduce from 800 mg QID 300?400 mg TID (or hold temporarily if pain allows) -Monitor for improvement in speech clarity, continence, and nighttime confusion Hydroxyzine discontinue -Avoid anticholinergic burden in setting of delirium and hypoxemia Lorazepam Continue 0.25-0.5 mg PRN PO/SL every 6?8 hrs, max 2 mg/day for severe panic with respiratory distress only -Avoid scheduled dosing or stacking with other sedatives Buspirone discontinue -not effective acutely/polypharmacy HPI Data of Consult Date/Time: 06/26/25 18:02 Requesting Physician: Carlos Enrique Zelaya MD Primary Care Provider: Diego Mina MD Consult Narrative Narrative: Ruchi Norton is a 74 year old female Review of Systems Psychiatric: Psychiatric: Reports abnormal sleep pattern, Reports anxiety, Reports change in appetite and Reports difficulty concentrating Comments: denied SI/HI. denied depressive symptoms. PHQ-9 score: 0 PMFSH Past Medical History Medical History (Updated 06/26/25 @ 19:45 by Parminder Gerard, [employer]) Mild pulmonary hypertension Estimated PASP of 46 mmHg on echo in 10/2022. Diastolic dysfunction Echocardiogram on 10/23/2022: normal LV size and function, estimated EF of 55 to 60%, diastolic dysfunction, moderate left atrial enlargement, and mild pulmonary hypertension. Hyperlipidemia Type 2 diabetes mellitus Diet-controlled, recent A1c was 5.9% 03/2025. Atrial fibrillation Frequent urinary tract infections Chronic pain syndrome Vitamin D deficiency Normocytic anemia Nicotine use Depression with anxiety Kidney stones Shingles Arthritis Gastroesophageal reflux disease Hypertension Sinus congestion Surgical History Surgical History History of fusion of cervical spine C4 through C6. History of lithotripsy History of hernia repair History of appendectomy Family History Family History Sibling Family history of blood dyscrasia Family history of malignant neoplasm Family history of seizure disorder Mother Family history of malignant neoplasm, Onset Age: 85 Family history of lymphoma, Onset Age: 85 Family history of atrial fibrillation, Onset Age: 85 Social History Social History Social History: Surrogate medical decision maker: Usha Ashley, granddaughter. Code status: Full code. Years smoked: 7 Smoking status: Former smoker Tobacco type: cigarettes Second hand tobacco smoke exposure: Yes Alcohol intake: never Substance use: current Substance use type: painkillers Other substance usage details: for chronic pain Lack of Transportation: No Lack of Food: Never True Current Housing: I Have Housing Concerned About Future Housing: No Difficulty Paying Gas/Electric Bills: No Difficulty Paying for Meds: No Currently Unemployed: No Education: High School Diploma/GED Difficulty w/ Childcare or Family Care: No Living arrangements: alone Spiritual care concerns: No Agree to blood products: Yes Meds Home Medications and Allergies Home Medications ?Medication ?Instructions ?Recorded ?Confirmed ?Type duloxetine 60 mg capsule,delayed 60 mg PO BID 12/26/19 06/22/25 History release (Cymbalta) risperidone 1 mg tablet 1 mg PO TID 10/22/22 06/22/25 History simvastatin 20 mg tablet See Rx Instructions .Route 10/11/24 06/22/25 Rx .COMPLEX #90 tabs cholecalciferol (vitamin D3) 50 See Rx Instructions .Route 05/16/25 12/12/25 Rx mcg (2,000 unit) capsule .COMPLEX #90 caps rivaroxaban 20 mg PO DAILY 02/22/25 06/22/25 History gabapentin 800 mg tablet See Rx Instructions .Route 03/30/25 06/22/25 Rx .COMPLEX #360 tabs metoprolol tartrate 50 mg tablet 25 mg PO BID 03/30/25 06/22/25 History ipratropium 0.5 mg-albuterol 3 mg 3 ml inhalation Q6H PRN shortness 05/03/25 06/22/25 Rx (2.5 mg base)/3 mL nebulization of breath or wheezing #360 mL soln benzonatate 100 mg capsule 100 mg PO TID PRN Cough #90 caps 05/09/25 06/22/25 Rx prednisone 20 mg tablet 40 mg (2 x 20 mg) PO DAILY 4 days 06/17/25 06/22/25 Rx #8 tabs budesonide 0.5 mg/2 mL suspension 0.5 mg (2 mL) inhalation DAILY #60 06/20/25 06/22/25 Rx for nebulization mL losartan 25 mg tablet 25 mg PO BID 06/22/25 06/22/25 History hydrocodone 5 mg-acetaminophen 325 1 tablet PO Q8H PRN pain 06/23/25 06/23/25 History mg tablet Allergies Allergy/AdvReac Type Severity Reaction Status Date / Time erythromycin base Allergy Hives Verified 06/22/25 15:29 Penicillins Allergy Hives Verified 06/22/25 15:29 Vital Signs Vital Signs - 24 hr 06/25/25 19:11 06/25/25 20:00 06/25/25 20:00 Temperature 99.4 F Pulse Rate 116 H 131 H 136 H Respiratory Rate 20 20 20 Blood Pressure 119/78 Pulse Oximetry 94 94 Oxygen Delivery High Flow Nasal Cannula Oxygen Flow Rate 8 Fraction of Inspired Oxygen 06/25/25 20:00 06/25/25 21:11 06/25/25 21:59 Temperature Pulse Rate 136 H 120 H 103 H Respiratory Rate Blood Pressure Pulse Oximetry Oxygen Delivery Oxygen Flow Rate Fraction of Inspired Oxygen 06/25/25 23:00 06/25/25 23:01 06/25/25 23:02 Temperature Pulse Rate 96 88 Respiratory Rate 17 17 Blood Pressure Pulse Oximetry 97 Oxygen Delivery Nasal Cannula Oxygen Flow Rate 8 Fraction of Inspired Oxygen 06/26/25 00:00 06/26/25 00:00 06/26/25 00:00 Temperature 99.3 F Pulse Rate 86 78 78 Respiratory Rate 20 20 Blood Pressure 100/56 L Pulse Oximetry 97 97 Oxygen Delivery Nasal Cannula Oxygen Flow Rate 8 Fraction of Inspired Oxygen 06/26/25 01:53 06/26/25 03:24 06/26/25 03:24 Temperature Pulse Rate 107 H 122 H 122 H Respiratory Rate 20 Blood Pressure Pulse Oximetry 97 Oxygen Delivery Nasal Cannula Oxygen Flow Rate 10 Fraction of Inspired Oxygen 60 06/26/25 04:00 06/26/25 06:00 06/26/25 07:25 Temperature 97.8 F Pulse Rate 133 H 111 H Respiratory Rate 20 Blood Pressure 143/84 H Pulse Oximetry 94 97 Oxygen Delivery High Flow Therapy with Na Oxygen Flow Rate 10 Fraction of Inspired Oxygen 06/26/25 07:25 06/26/25 07:30 06/26/25 07:33 Temperature Pulse Rate 113 H 117 H Respiratory Rate 22 H 20 Blood Pressure Pulse Oximetry 96 Oxygen Delivery High Flow Nasal Cannula Oxygen Flow Rate 7 Fraction of Inspired Oxygen 06/26/25 07:40 06/26/25 07:56 06/26/25 08:00 Temperature 98.8 F Pulse Rate 110 H 106 H 121 H Respiratory Rate 24 H Blood Pressure 140/56 L Pulse Oximetry 97 Oxygen Delivery Oxygen Flow Rate Fraction of Inspired Oxygen 06/26/25 08:04 06/26/25 08:21 06/26/25 09:15 Temperature Pulse Rate Respiratory Rate Blood Pressure Pulse Oximetry 92 89 L 99 Oxygen Delivery High Flow Nasal Cannula High Flow Therapy with Na High Flow Therapy with Na Oxygen Flow Rate 5 7 4 Fraction of Inspired Oxygen 06/26/25 10:00 06/26/25 11:36 06/26/25 12:00 Temperature 98.4 F Pulse Rate 89 95 Respiratory Rate 22 H Blood Pressure 110/60 Pulse Oximetry 94 92 Oxygen Delivery High Flow Nasal Cannula Oxygen Flow Rate 10 Fraction of Inspired Oxygen 06/26/25 12:00 06/26/25 12:26 06/26/25 12:55 Temperature Pulse Rate 117 H 116 H Respiratory Rate 20 Blood Pressure Pulse Oximetry 93 Oxygen Delivery High Flow Nasal Cannula Oxygen Flow Rate 10 Fraction of Inspired Oxygen 06/26/25 13:00 06/26/25 13:15 06/26/25 13:30 Temperature Pulse Rate 105 H Respiratory Rate 20 Blood Pressure Pulse Oximetry 98 98 Oxygen Delivery High Flow Nasal Cannula High Flow Nasal Cannula Oxygen Flow Rate 5 3 Fraction of Inspired Oxygen 06/26/25 15:36 06/26/25 16:00 06/26/25 16:27 Temperature 98.4 F Pulse Rate 95 Respiratory Rate 24 H Blood Pressure 110/58 L Pulse Oximetry 94 92 98 Oxygen Delivery High Flow Nasal Cannula High Flow Nasal Cannula Oxygen Flow Rate 10 3 Fraction of Inspired Oxygen 06/26/25 16:32 06/26/25 16:42 Temperature Pulse Rate 113 H 128 H Respiratory Rate 20 20 Blood Pressure Pulse Oximetry Oxygen Delivery Oxygen Flow Rate Fraction of Inspired Oxygen Exam Psych: Appearance: well kempt Speech and movement: Slurred speech present Affect: Anxious affect present Attitude: cooperative Thought process: Normal thought process present Thought content: Yes Normal thought content present Insight: Limited insight present (Psych) Judgement: Limited judgement present (Psych) Results Labs 06/26/25 04:29 06/26/25 04:29 Labs: Short CBC 06/26/25 Range/Units 04:29 WBC 11.1 H (4.5-10.0) K/mm3 Hgb 10.9 L (12.0-15.0) g/dL Hct 34.8 L (37.0-47.0) % Plt Count 251 (150-375) k/mm3 [facility] [place] 06/26/25 04:29 Sodium 144 Potassium 3.0 L Chloride 110 H Carbon Dioxide 31 H BUN 29 H Creatinine 0.84 Glucose 125 H Calcium 9.0 Liver Function 06/26/25 Range/Units 04:29 Total Bilirubin 0.5 (0.2-1.3) mg/dL AST 23 (14-36) U/L ALT 12 (6-35) U/L Alkaline Phosphatase 51 (38-126) U/L Albumin 3.3 L (3.5-5.1) g/dL
[2025-06-26] MEDS: SIMVASTATIN 20 MG TABLET PO (20:56)
--- NOTE | 2025-06-26 21:35 | P.PNCROSS_ITS ---
Event Note Event Note Event Note: the patient is anxious tonight. I did review the psychiatric consult recommen dations. Orders were placed as per psychiatric recommendations.
--- NOTE | 2025-06-26 21:35 | PM.EVENT ---
Event Note Event Note Event Note: the patient is anxious tonight. I did review the psychiatric consult recommendations. Orders were placed as per psychiatric recommendations.
[2025-06-27] VITALS (27 sets, daily range): BP systolic 80–150; BP diastolic 29–107; PULSE 78–117; RESP 16–26; TEMP 36.6–37.7; O2SAT 91–99
[2025-06-27] MEDS: IPRATROPIUM BR 0.02% INH SOLN 0.5 MG/2.5 ML VIAL INHALATION ×6 (04:09→20:20)
[2025-06-27] MEDS: DOXYCYCLINE IV 100 MG in SODIUM CHLORIDE 0.9% IV 100 ML IVPB (04:34)
[2025-06-27 04:44] LABS: Hematocrit 34.5 % (37.0-47.0); Hemoglobin 10.9 g/dL (12.0-15.0); Mean Corpuscular HGB Conc 31.6 g/dl (32-36); Mean Corpuscular Hemoglobin 28.7 pg (26-34); Mean Corpuscular Volume 90.8 fl (80-100); Platelet Count Result 262 k/mm3 (150-375); Red Blood Count 3.80 M/mm3 (4.2-5.4); White Blood Count 10.7 K/mm3 (4.5-10.0)
[2025-06-27] MEDS: GABAPENTIN 400 MG CAPSULE PO ×2 (05:00→21:42)
[2025-06-27 05:08] LABS: Alanine Aminotransferase 12 U/L (6-35); Albumin Level 3.3 g/dL (3.5-5.1); Alkaline Phosphatase 50 U/L (38-126); Anion Gap 4 mmol/L (4-12); Aspartate Amino Transferase 24 U/L (14-36); Bilirubin,Total 0.7 mg/dL (0.2-1.3); Blood Urea Nitrogen 28 mg/dL (7-17); Calcium 9.1 mg/dL (8.4-10.2); Carbon Dioxide 32 mmol/L (22-30); Chloride 109 mmol/L (98-107); Estimated CRCL calculation 50 ml/min; Estimated Glomerular Filt Rate > 60; Glucose 134 mg/dL (65-110); Potassium 2.9 mmol/L (3.4-5.0); Sodium 145 mmol/L (137-145); Total Protein 6.3 g/dL (6.3-8.2)
[2025-06-27 05:14] LABS: NT Pro B Type Natriuretic Pept 3450 pg/mL (19.9-100)
[2025-06-27] MEDS: BUDESONIDE RESPULE NEB 0.5 MG/2 ML AMP INHALATION ×2 (07:55→20:19)
[2025-06-27] MEDS: guaiFENesin 12 HR 600 MG TABCR 1200 MG PO ×2 (08:53→20:07)
[2025-06-27] MEDS: CHOLECALCIFEROL (VITAMIN D3) 25 MCG (1,000 UNITS) TABLET 50 MCG PO (08:53)
[2025-06-27] MEDS: DULoxetine HCL 60 MG CAPSULE.DR PO (08:53)
[2025-06-27] MEDS: LOSARTAN POTASSIUM 25 MG TABLET PO ×2 (08:53→17:56)
[2025-06-27] MEDS: FUROSEMIDE 40 MG TABLET PO ×2 (08:53→17:56)
[2025-06-27] MEDS: METOPROLOL TARTRATE 50 MG TAB PO ×2 (08:53→20:08)
[2025-06-27] MEDS: KCL 20 MEQ/SW 100 ML 100 ML 50 MEQ IVPB (08:54)
--- NOTE | 2025-06-27 09:08 | P.PNIM_ITS ---
Assessment and Plan Assessment and Plan (1) COPD (chronic obstructive pulmonary disease): Qualifiers: COPD type: unspecified COPD Qualified Code(s): J44.9 - Chronic obstructive pulmonary disease, unspecified Code(s): J44.9 - Chronic obstructive pulmonary disease, unspecified Status: Chronic Assessment and Plan: New shortness of breath, chronic dry cough that initially improved with nebulizer in the ED on 06 17. However has been progressively more short of breath since then. Admitted on 06/22. Initial evaluation in the ED showed diffuse expiratory wheezing, new O2 requirement, and tachypnea. Modestly improved with nebulizers. - continue levalbuterol/HR vent scheduled - prednisone 40 mg daily x5 days, given Solu-Medrol in the ED initially - s/pceftriaxone and doxycycline on 06/22, allergy to erythromycin - Mucinex yudelka - continue supplemental O2 to maintain O2 sat greater than 92%, currently requiring 3L NC. No baseline requirement. (2) Atrial fibrillation with rapid ventricular response: Code(s): I48.91 - Unspecified atrial fibrillation Status: Acute Assessment and Plan: Patient arrived in NSR. Post multiple breathing treatments she developed AFib RVR, has history of AFib. Minimal response with metoprolol 5 mg IV x2. Given home metoprolol dose orally. Remains in the 120s, intermittently in the 150s. If no improvement with third dose of IV metoprolol, will transition to IV diltiazem. - admission to IMU - telemetry monitoring - Continue Cardizem and Metoprolol per cardiology, monitor HR - TSH reviewed, 1.44 on 02/23/2025 - continue Xarelto (3) Acute exacerbation of CHF (congestive heart failure): Qualifiers: Heart failure type: diastolic Qualified Code(s): I50.33 - Acute on chronic diastolic (congestive) heart failure Code(s): I50.9 - Heart failure, unspecified Status: Acute Assessment and Plan: CXR concerning for small bilateral pleural effusions with vascular changes which may represent mild vascular congestion or atypical inflammatory/infectious process. Denies any new peripheral edema or weight gain, does report she is at 3 lb of weight gain over the past few months however does not feel it is fluid related. Last echo on file in 2022 which showed EF of 55-60%, diastolic dysfunction, LV wall thickness increased, LA chamber moderately enlarged, mild pulmonary hypertension, trivial pericardial effusion. - update echo - monitor I&Os daily weights - s/p IV Lasix , now on Lasix 40mg daily increased to b.i.d. (4) Elevated troponin: Code(s): R79.89 - Other specified abnormal findings of blood chemistry Status: Acute Assessment and Plan: Likely type 2 given new hypoxia. Was 86% on room air due to COPD exacerbation. Troponin currently downtrending. No reports of chest pain. Does have some chest tightness with exertion, however shortness of breath significantly worsens with exertion as well. Now additionally in AFib RVR secondary to nebulizer treatments. EKG reviewed, no significant ST depressions or elevations. PACs and PVCs now present when compared to previous. - trend troponin - SL nitro p.r.n. (5) Hypertension: Qualifiers: Hypertension type: primary hypertension Qualified Code(s): I10 - Essential (primary) hypertension Code(s): I10 - Essential (primary) hypertension Status: Chronic Assessment and Plan: - chronic, currently 157/53, stable. - continue home medications: Losartan 25 mg b.i.d.. Holding metoprolol, see above. - monitor (6) Diabetes mellitus: Qualifiers: Diabetes mellitus complication status: without complication Diabetes mellitus fpc insulin use: without technician terminal and repeater use Diabetes mellitus type: type 2 Qualified Code(s): E11.9 - Type 2 diabetes mellitus without complicatio ns Code(s): E11.9 - Type 2 diabetes mellitus without complications Status: Chronic Assessment and Plan: Diet controlled. Last A1c 5.9% on 03/27/2025. - hypoglycemia protocol p.r.n. (7) Anxiety: Code(s): F41.9 - Anxiety disorder, unspecified Status: Acute Assessment and Plan: Psychiatry evaluated the patient and advised duloxetine 60 mg daily instead of b.i.d., risperidone 1 mg b.i.d. not t.i.d., reduce gabapentin from 800 mg q.i.d. to 300-400 mg t.i.d., discontinue hydroxyzine, continue lorazepam 0.5 mg p.o./SL q.6-8hrs, and discontinue buspirone. Plan Acute hypoxemic respiratory failure on HFNC Severe bilateral bronchopneumonia, CT chest reviewed CXR showed bilateral infiltrates MRSA negative Continue Levaquin and Doxycycline Increase Lasix 40mg po daily to b.i.d. titrate oxygen monitor Pulmonology following Diet: Heart healthy DVT Prophylaxis: Xarelto Lines/Tubes: pIV Code Status: Full code Subjective Date/time seen: 06/27/25 09:08 Interval history: Psychiatry evaluated the patient and advised duloxetine 60 mg daily instead of b.i.d., risperidone 1 mg b.i.d. not t.i.d., reduce gabapentin from 800 mg q.i.d. to 300-400 mg t.i.d., discontinue hydroxyzine, continue lorazepam 0.5 mg p.o./SL q.6-8hrs, and discontinue buspirone. Replenished potassium. BNP down trending. Patient reports she is feeling better today. Patient was febrile yesterday night. Ordered a blood culture Review of Systems Review of Systems: All systems reviewed & are unremarkable except as noted in HPI and below Exam Const: General: comfortable and no acute distress Other: , female, elderly, nontoxic appearance HENMT: Face/Nose/Sinus: Normal nares present Mouth: Yes moist mucous membranes Eyes: General: appearance normal, both eyes and all related structures Sclera: sclerae normal Pupils: Equal, round and reactive pupils present EOM: EOMs intact bilaterally Resp: Other: Faint expiratory wheeze, mild tachypnea (ambulated to the restroom just prior to exam). No crackles appreciated. Cardio: Rate: tachycardic Rhythm: abnormal rhythm (Consistent with AFib) Other: S1-S2 present without murmur, rub, ectopy GI: Other: Abdomen soft, nondistended, nontender. Normoactive bowel sounds in all quadrants. Skin: General skin exam: normal color and no rashes or lesions noted Wou nds: no wounds Neuro: Cranial nerves: Yes Equal, round and reactive pupils present Speech: normal speech Motor exam (neuro): 5/5 motor strength present throughout Sensory Exam: normal sensation Other: A&O x4 Extrem: Other: Trace edema to the bilateral ankles, symmetric and nonpitting Psych: Mental Status: mental status grossly normal Affect: normal affect Other: Good insight and judgment. Objective Data Vital Signs Vital Signs: Vital Signs - 24 hr 06/26/25 09:15 06/26/25 10:00 06/26/25 11:36 Temperature 98.4 F Pulse Rate 89 95 Respiratory Rate 22 H Blood Pressure 110/60 Pulse Oximetry 99 94 Oxygen Delivery High Flow Therapy with Na Oxygen Flow Rate 4 06/26/25 12:00 06/26/25 12:00 06/26/25 12:26 Temperature Pulse Rate 117 H Respiratory Rate Blood Pressure Pulse Oximetry 92 93 Oxygen Delivery High Flow Nasal Cannula High Flow Nasal Cannula Oxygen Flow Rate 10 10 06/26/25 12:55 06/26/25 13:00 06/26/25 13:15 Temperature Pulse Rate 116 H 105 H Respiratory Rate 20 20 Blood Pressure Pulse Oximetry 98 Oxygen Delivery High Flow Nasal Cannula Oxygen Flow Rate 5 06/26/25 13:30 06/26/25 14:00 06/26/25 15:36 Temperature 98.4 F Pulse Rate 123 H 95 Respiratory Rate 24 H Blood Pressure 110/58 L Pulse Oximetry 98 94 Oxygen Delivery High Flow Nasal Cannula Oxygen Flow Rate 3 06/26/25 16:00 06/26/25 16:00 06/26/25 16:27 Temperature Pulse Rate 105 H Respiratory Rate Blood Pressure Pulse Oximetry 92 98 Oxygen Delivery High Flow Nasal Cannula High Flow Nasal Cannula Oxygen Flow Rate 10 3 06/26/25 16:32 06/26/25 16:42 06/26/25 18:00 Temperature Pulse Rate 113 H 128 H 119 H Respiratory Rate 20 20 Blood Pressure Pulse Oximetry Oxygen Delivery Oxygen Flow Rate 06/26/25 20:00 06/26/25 20:00 06/26/25 20:00 Temperature 100.3 F H Pulse Rate 132 H 124 H Respiratory Rate 24 H Blood Pressure 118/88 Pulse Oximetry 98 99 Oxygen Delivery High Flow Therapy with Na Oxygen Flow Rate 5 06/26/25 20:20 06/26/25 20:24 06/26/25 20:28 Temperature Pulse Rate 117 H 111 H Respiratory Rate 20 20 Blood Pressure Pulse Oximetry 93 Oxygen Delivery High Flow Therapy with Na Oxygen Flow Rate 10 06/26/25 20:57 06/26/25 23:58 06/27/25 00:00 Temperature Pulse Rate 120 H 102 H 115 H Respiratory Rate 20 Blood Pressure Pulse Oximetry Oxygen Delivery Oxygen Flow Rate 06/27/25 00:00 06/27/25 00:00 06/27/25 00:03 Temperature 99.9 F H Pulse Rate 116 H 105 H Respiratory Rate 24 H 20 Blood Pressure 104/53 L Pulse Oximetry 98 95 Oxygen Delivery High Flow Therapy with Na Oxygen Flow Rate 5 06/27/25 04:00 06/27/25 04:00 06/27/25 04:00 Temperature 99.4 F Pulse Rate 90 106 H Respiratory Rate 24 H Blood Pressure 150/107 H Pulse Oximetry 98 99 Oxygen Delivery High Flow Therapy with Na Oxygen Flow Rate 8 06/27/25 04:10 06/27/25 04:15 06/27/25 05:57 Temperature Pulse Rate 94 97 111 H Respiratory Rate 18 18 Blood Pressure Pulse Oximetry Oxygen Delivery Oxygen Flow Rate 06/27/25 06:55 06/27/25 08:00 Temperature 98.9 F Pulse Rate 98 Respiratory Rate 22 H Blood Pressure 124/59 L Pulse Oximetry 96 99 Oxygen Delivery High Flow Therapy with Na Oxygen Flow Rate 6 Intake/Output Intake/Output: Intake & Output 06/24/25 06/25/25 06/26/25 06/27/25 23:59 23:59 23:59 23:59 Intake Total 1300 910 460 100 Output Total 1800 1550 200 Balance -500 -640 260 100 Meds/Results Medications: Active Medications Generic Name Dose Route Start Last Admin Trade Name Freq PRN Reason Stop Dose Admin Acetaminophen 650 mg 06/22/25 14:49 06/24/25 20:18 Acetaminophen 325 Mg Tablet PO 650 mg Q4H PRN Administration Mild Pain (1-3) or Fever Hydrocodone Bitart/Acetaminophen 1 tab 06/23/25 08:08 06/26/25 03:04 Hydrocodone/Acetaminophen (*Crx) 5-325 Mg Tablet PO 1 tab Q8H PRN Administration Pain Benzonatate 100 mg 06/22/25 16:14 06/26/25 07:56 Benzonatate 100 Mg Capsule PO 100 mg TID PRN Administration Cough Budesonide 0.5 mg 06/24/25 20:00 06/27/25 07:55 Budesonide Respule Neb 0.5 Mg/2 Ml Amp INHALATION 0.5 mg Q12HRT YUDELKA Administration Dextrose 12.5 gm 06/22/25 15:39 Dextrose 50% 25 Gm/50 Ml Syringe IV PUSH PRN PRN Hypoglycemia Protocol Diltiazem HCl 90 mg 06/26/25 18:00 06/27/25 05:00 Diltiazem Hcl 60 Mg Tablet PO 90 mg Q6HR YUDELKA Administration Duloxetine HCl 60 mg 06/22/25 17:00 06/26/25 16:07 Duloxetine Hcl 60 Mg Capsule.Dr PO 60 mg BID YUDELKA Administration Furosemide 40 mg 06/26/25 17:00 06/26/25 16:07 Furosemide 40 Mg Tablet PO 40 mg BIDWM YUDELKA Administration Gabapentin 400 mg 06/27/25 06:00 06/27/25 05:00 Gabapentin 400 Mg Capsule PO 400 mg Q8HR YUDELKA Administration Glucagon 1 mg 06/22/25 15:39 Glucagon For Inj 1 Mg Vial IM PRN PRN Hypoglycemia Protocol Glucose 15 gm 06/22/25 15:39 Glucose Oral Gel 15 Gm Of Glucse In 37.5 Gm Tube PO PRN PRN Hypoglycemia Protocol Guaifenesin 1,200 mg 06/24/25 21:00 06/26/25 20:57 Guaifenesin 12 Hr 600 Mg Tabcr PO 1,200 mg Q12HR YUDELKA Administration Dextrose 1,000 mls @ 100 mls/hr 06/22/25 15:39 Dextrose 5% 1,000 Ml IVPB PRN PRN Hypoglycemia Protocol Levofloxacin/Dextrose 750 mg in 150 mls @ 100 mls/hr 06/26/25 15:00 06/26/25 12:53 Levaquin 750 Mg/D5w 150 Ml IVPB 100 mls/hr DAILY@1500 YUDELKA Administration Potassium Chloride 100 mls @ 50 mls/hr 06/27/25 08:13 Kcl 20 Meq/Sw 100 Ml IVPB 06/27/25 10:12 ONCE ONE Ipratropium [place] 0.5 mg 06/24/25 12:00 06/27/25 07:55 Ipratropium Br 0.02% Inh Soln 0.5 Mg/2.5 Ml Vial INHALATION 0.5 mg Q4HRT YUDELKA Administration Lorazepam 0.5 mg 06/26/25 12:51 06/26/25 20:58 Lorazepam (*Crx) 0.5 Mg Tablet PO 0.5 mg DAILY PRN Administration Anxiety Losartan Potassium 25 mg 06/22/25 17:00 06/26/25 16:07 Losartan Potassium 25 Mg Tablet PO 25 mg BID YUDELKA Administration Metoprolol Tartrate 50 mg 06/25/25 09:00 06/26/25 20:57 Metoprolol Tartrate 50 Mg Tab PO 50 mg Q12HR YUDELKA Administration Nitroglycerin 0.4 mg 06/22/25 15:39 Nitroglycerin Sl 0.4 Mg Tablet SUBLINGUAL Q5MIN PRN Chest Pain Risperidone 1 mg 06/22/25 17:00 06/26/25 16:07 Risperidone 1 Mg Tablet PO 1 mg TID YUDELKA Administration Rivaroxaban 20 mg 06/22/25 17:00 06/26/25 16:07 Rivaroxaban 20 Mg Tablet PO 20 mg DAILY@1700 YUDELKA Administration Simvastatin 20 mg 06/22/25 21:00 06/26/25 20:56 Simvastatin 20 Mg Tablet PO 20 mg HS YUDELKA Administration Vitamin D 50 mcg 06/23/25 09:00 06/26/25 07:56 Cholecalciferol (Vitamin D3) 25 Mcg (1,000 Units) Tablet PO 50 mcg DAILY YUDELKA Administration Radiology Results: ITS Impressions Head CT 06/23/25 12:29 IMPRESSION: 1. No acute intracranial findings. Chest CT 06/23/25 18:21 IMPRESSION: Severe bilateral bronchopneumonia. Follow-up recommended to assess resolution. Chest X-Ray 06/26/25 08:11 Impression: CHF. Superimposed left lower lobe probable pneumonia. The findings appear relatively unchanged Labs Labs: Laboratory Results - last 24 hr 06/24/25 06/25/25 06/26/25 09:50 04:07 08:53 WBC RBC Hgb Hct MCV MCH MCHC RDW Plt Count MPV Puncture Site Right radial ABG pH 7.418 ABG pCO2 49.7 H ABG pO2 74.3 L ABG PO2/FiO2 Ratio 1.86 ABG HCO3 31.4 H ABG O2 Saturation 95.0 ABG O2 Content 16.2 ABG Base Excess 5.8 A-a Gradient 153.7 Oxyhemoglobin 94.3 Total Hemoglobin 12.2 O2 Delivery Device Not Reportable O2 Liters/Min 10.0 FiO2 40 Sodium Potassium Chloride Carbon Dioxide Anion Gap BUN Creatinine Estim Creat Clear Calc Estimated GFR Glucose Calcium Total Bilirubin AST ALT Alkaline Phosphatase NT-Pro-B Natriuret Pep Total Protein Albumin [id number] 228 H Chlamy pneumoniae PCR Not detected Adenovirus (PCR) Not detected B. pertussis DNA (PCR) Not detected B.parapertussis DNA PCR Not detected Coronavirus OC43 (PCR) Not detected Coronavirus HKU1 (PCR) Not detected Coronavirus 229E (PCR) Not detected Coronavirus NL63 (PCR) Not detected Human Metapneumovir PCR Not detected Influenza A (H1) PCR Not detected Influ A (H1/) PCR Not detected Influenza A (H3) PCR Not detected Influenza Type A (PCR) Not detected Influenza Type B (PCR) Not detected M.pneumoniae IgM Titer <770 M. pneumoniae (PCR) Not detected Parainfluenza 1 (PCR) Not detected Parainfluenza 2 (PCR) Not detected Parainfluenza 3 (PCR) Not detected Parainfluenza 4 (PCR) Not detected RSV (PCR) Not detected Entero/Rhino (PCR) Not detected SARS-CoV-2 (PCR) Not detected 06/27/25 04:33 WBC 10.7 H RBC 3.80 L Hgb 10.9 L Hct 34.5 L MCV 90.8 MCH 28.7 MCHC 31.6 L RDW 15.8 H Plt Count 262 MPV 10.9 H Puncture Site ABG pH ABG pCO2 ABG pO2 ABG PO2/FiO2 Ratio ABG HCO3 ABG O2 Saturation ABG O2 Content ABG Base Excess A-a Gradient Oxyhemoglobin Total Hemoglobin O2 Delivery Device O2 Liters/Min FiO2 Sodium 145 Potassium 2.9 L Chloride 109 H Carbon Dioxide 32 H Anion Gap 4 BUN 28 H Creatinine 0.87 Estim Creat Clear Calc 50 Estimated GFR > 60 Glucose 134 H Calcium 9.1 Total Bilirubin 0.7 AST 24 ALT 12 Alkaline Phosphatase 50 NT-Pro-B Natriuret Pep 3450 H Total Protein 6.3 Albumin 3.3 L [id number] Chlamy pneumoniae PCR Adenovirus (PCR) B. pertussis DNA (PCR) B.parapertussis DNA PCR Coronavirus OC43 (PCR) Coronavirus HKU1 (PCR) Coronavirus 229E (PCR) Coronavirus NL63 (PCR) Human Metapneumovir PCR Influenza A (H1) PCR Influ A (H1) PCR Influenza A (H3) PCR Influenza Type A (PCR) Influenza Type B (PCR) M.pneumoniae IgM Titer M. pneumoniae (PCR) Parainfluenza 1 (PCR) Parainfluenza 2 (PCR) Parainfluenza 3 (PCR) Parainfluenza 4 (PCR) RSV (PCR) Entero/Rhino (PCR) SARS-CoV-2 (PCR) Quality VTE Prophylaxis VTE prophylaxis: pharmacologic ordered Hospitalist MIPS Advance Care Plan I have confirmed that the patient's Advanced Care Plan is present, code status is documented, or surrogate decision maker is listed in patient medical record.: Yes Medication Reconciliation I have utilized all available resources to obtain, update and review the patients current medications (includes all prescriptions, OTC, herbals, cannabis, and nutritional supplements).: Yes
[2025-06-27] MEDS: POTASSIUM CHLORIDE 20 MEQ PACKET (FOR LIQUID) 40 MEQ PO ×2 (09:19→20:04)
--- NOTE | 2025-06-27 10:21 | P.PNPL_ITS ---
Progress Note: A&P Assessment and Plan (1) Abnormal PFT: Code(s): R94.2 - Abnormal results of pulmonary function studies Status: Acute Assessment and Plan: PFTs on 12/12/2024 demonstrate Preserved Ratio Impaired Spirometry (PRISm) with a normal FVC. she has a 5 pack year tobacco history and is currently smoking [address] scan of the chest shows no significant bullous emphysema. She has no bronchodilator response. The plan in the Pulmonary Clinic was to give her therapeutic trial of bronchodilators to see if this gave her clinical benefit. PFT showed PRISm which indicates early airflow obstruction. People with PRISm may have increased respiratory symptoms despite not meeting formal criteria for COPD. This may progress to a restrictive or obstructive process and can be associated with increased cardiovascular and all cause mortality in some studies. 06/24/2025: Patient tells me she has improved. She has 50% back to her normal. Her cough is essentially resolved. She denies phlegm or hemoptysis. She has no wheezing. When I enter the room she was on Airvo 40 L, 66% FiO2 with saturations 96%. The placed her on 15 L nasal cannula and sequentially decreased her to 10 L nasal cannula saturations 93%. Clinically she had no change when I switched her to nasal cannula oxygen. White blood cell count 18.1, creatinine 1.01. Procalcitonin unchanged from 0.1 on 06/23/2025 20.1 today. CRP today 13.0. BNP has improved from 3630 on 06/22/2025 to 2770 today. she has been diuresed with Lasix 40 IV b.i.d.. Yesterday she was positive 379 mL. Cumulative she is positive 2.7 L since admission. Her heart rate was AFib 130-140 and I have discontinue levalbuterol. ABG on 10 L nasal cannula 7.37/45/54. There is no evidence of hypercarbic respiratory failure. Plan: Patient currently has no wheezing and given her uncontrolled atrial fibrillation with RVR, I will discontinue levalbuterol. I will initiate ipratropium nebulizers q.4 hours and increase budesonide nebulizer 0.5 mg b.i.d. In case she has reactive airways disease. Given major concern is for bronchopneumonia I will discontinue prednisone today. She has received 3 days of systemic steroids. 06/25/2025: Patient said she did well yesterday and slept well through the night. This morning she had gotten up to the chair and her heart rate increased to 170 and she had worsening shortness of breath. She denies any current cough, phlegm or hemoptysis. Currently she is on 10 L nasal cannula with saturation 96%. Her heart rate is 150-175 irregularly irregular. White blood cell count 1 6.2, creatinine 1.03 yesterday she was -500 mL. Cumulative she is positive 2.0 L since admission. Her weight today is 90.2. [employer] has been notified regarding her AFib with RVR. Plan: Overall patient thought her breathing was doing better yesterday. Continue treatment for pneumonia, AFib RVR with fluid overload. Today her AFib with RVR is uncontrolled. She remains on 10 L with saturations 96%. I will not try to decrease the oxygen as she is having shortness of breath with her AFib RVR. Continue treatment for pneumonia, AFib RVR with fluid overload. 06/26/25: Patient was agitated and had pain through the night and is receive narcotics, BuSpar, on gabapentin, risperidone as well. The pulse morning says she is breathing worse, worse cough with no phlegm and no hemoptysis. She is lethargic and I ordered a stat ABG on 7 L nasal cannula shows 7.42/50/74. Her heart rate was 120 and she is scheduled to receive her diltiazem and metoprolol. I called the nurse back in an hour and her heart rate now is 70- 80, her respiratory status has improved and she is on 4 L nasal cannula saturations 93-95%. She is afebrile. White blood cell count 11.1, creatinine 0.84. Yesterday she was -640 mL. Cumulative she is positive 1.6 L since admission. her weight today is 84.3 kg. Her BNP is worse from 2770 on 06/24/2025 to 5330. Her CRP is increased from 13 on 06/24/2025 to 18.2 today. Her chest x-ray today shows continued infiltrates and congestion with no significant change from 06/23/2025. Plan: Patient continues with anxiety and pain which complicate her cardiac and respiratory issues. When she is calm and relaxed her heart rate is 70-80 and her nasal cannula oxygen can be decreased. Currently she is relaxed with AFib 70-80 and she has decreased to 4 L nasal cannula. Continue treatment for pneumonia, AFib with RVR and fluid overload. She is given 40 of Lasix today. Goal saturation 90-94%. Wean as tolerated. 06/27/25: The patient tells me she feels better today. Overall she says her breathing is 50% back to her normal. She has no cough, phlegm, hemoptysis. She did not feel any fever. When I enter the room she was on 5 L nasal cannula sa turations 95%. I decreased her to 3 L nasal cannula her saturations were 89%. I placed her back on 4 L nasal cannula saturations 92%. Patient had a fever last night at 8:00 p.m. a 37.9. White blood cell count 10.7, creatinine 0.87. Plan: patient's breathing has improved. Requiring 4 L oxygen. continue ipratropium q.4 hours and budesonide q.12 hours. Continue guaifenesin 1200 p.o. b.i.d.. continue treatment for pneumonia, AFib with RVR and fluid overload. anxiety and agitation improved with psychiatry recommendations of: duloxetine 60 mg daily instead of b.i.d., risperidone 1 mg b.i.d. not t.i.d., reduce gabapentin from 800 mg q.i.d. to 300-400 mg t.i.d., discontinue hydroxyzine, continue lorazepam 0.5 mg p.o./SL q.6-8hrs, and discontinue buspirone. Discussed with Dr. Foster, will follow with you. (2) Pneumonia: Qualifiers: Laterality: bilateral Lung location: unspecified part of lung Pneumonia type: due to unspecified organism Qualified Code(s): J18.9 - Pneumonia, unspecified organism Code(s): J18.9 - Pneumonia, unspecified organism Status: Acute Assessment and Plan: Patient presents with worsening respiratory symptoms, no leukocytosis, afebrile, COVID influenza RSV RT PCR assay negative, MRSA swab negative, chest x-ray with small effusions and congestion and a CT scan with bilateral infiltrates. CT scan of the chest 06/23/2025 compared to 05/06/2025 shows new bilateral upper lobe infiltrates right greater than left small medial segment of the right middle lobe infiltrate lingular infiltrates with very small left pleural effusion. These ground-glass infiltrates are new since 05/06/2025 there is no evidence of chronic interstitial lung disease, bullous emphysema, nodules or masses. ceftriaxone x1 dose 06/22 Plan: I will discontinue vancomycin. I am no evidence for anaerobic lung infection will discontinue metronidazole. Will continue levofloxacin 750 mg Q 48 hours and doxycycline 100 q.12. I will send a repeat COVID influenza RSV RT PCR assay. I will send respiratory pathogen panel, urine for Legionella antige n, urine for pneumococcal antigen and serum for mycoplasma IgM. COVID, influenza, RSV RT PCR assay negative 06/22 and 06/24. Respiratory pathogen panel, urine for Legionella antigen, urine for pneumococcal antigen and serum mycoplasma IgM pending 06/25/2025: Patient was improving 3 yesterday. Afebrile, White blood cell count 16.2, she has no cough, phlegm or hemoptysis. Plan: Continue treatment for pneumonia with doxycycline started 06/22/2025, day 4 and l levofloxacin started 06/23/2025. Status post ceftriaxone x1 dose on 06/22/2025. Status post vancomycin 1 dose on 06/23/2025. Status post Flagyl 06/23 through 06/25 AFib RVR with fluid overload, 06/26/25: No progression of her chest x-ray, leukocytosis is improving, afebrile, oxygen Nation is improving. Plan: Continue doxycycline, day 5 and levofloxacin day 3. 06/27/25: Patient had a fever last night with improvement in her respiratory symptoms. Improvement in her leukocytosis, stable oxygenation. She denies worsening phlegm or shortness of breath. Plan: Patient has completed 5 days of doxycycline. Currently on day 4 of Levaquin. Will follow patient's fever curve. At this time do not feel the fevers are related to a pulmonary infectiou (3) Acute exacerbation of CHF (congestive heart failure): Qualifiers: Heart failure type: diastolic Qualified Code(s): I50.33 - Acute on chronic diastolic (congestive) heart failure Code(s): I50.9 - Heart failure, unspecified Status: Acute Assessment and Plan: Patient with fluid overload and AFib with RVR. 06/24/25: BNP has improved from 3630 on 06/22/2025 to 2770 today. she has been diuresed with Lasix 40 IV b.i.d.. Yesterday she was positive 379 mL. Cumulative she is positive 2.7 L since admission. Her heart rate was AFib 130- 14o Plan: Management per patient companion and hospitalist teams. Recommended as aggressive diuresis as tolerated by patient's cardiac and renal systems. I have discontinue levalbuterol. Patient has been switched to 40 mg p.o. q.day start time 5:00 p.m.. 06/25/25: This morning she had gotten up to the chair and her heart rate increased to 170 and she had worsening shortness of breath. creatinine 1.03 yesterday she was -500 mL. Cumulative she is positive 2.0 L since admission. Her weight today is 90.2. [employer] has been notified regarding her AFib with RVR. Plan: Management per patient companion and hospitalist team. Currently on Lasix 40 q.day. 06/26/25: yesterday she was -640 mL. Cumulative she is positive 1.6 L since admission. her weight today is 84.3 kg. Her BNP is worse from 2770 on 06/24/2025 to 5330. Plan: Management per patient companion and hospitalist teams. Consider higher doses of Lasix. 06/27/25: BNP has improved from 5330 on 06/26/2025 to 3450 today. Yesterday she was positive 260 mL, . Cumulative she is positive 1.9 L since admission. Her weight today is 84.3 kg. heart rate is better controlled today with a flutter at 100-110. Plan: Management per patient companion and hospitalist team. Currently on Lasix 40 p.o. b.i.d.. Subjective Date/time seen: 06/27/25 10:21 Interval history: 06/24/2025: This is a new pulmonary consult for respiratory failure. 74-year-old with a history of CHF, DM, HTN, GERD, HLD, COPD patient is followed in the Pulmonary Clinic in last seen on 04/02/2025: This is note and plan. 3 month follow-up regarding coughing. Hx: CHF, DM, HTN, GERD, HLD, COPD. Sees [facility] cardiology. She was hospitalized last month 02/22/25 from 02/25 regarding afib RVR, NAT, CHF, and pneumonia. CXR showed confluent opacity in the lower 3rd of the left he mithorax which is a slightly increased in size, small patchy opacities in the right lower lung. CTA of the chest showed a few small ground-glass and patchy opacities in both lungs more prominent in the lower lungs, small left pleural effusion, tiny right pleural effusion, several low-density indeterminate lesions scattered throughout the liver, indeterminate 2.3 cm left adrenal nodule. She was tx with abx for PNA, Cardizem gtt for afib, fluid bolus for NAT, and Lasix for CHF. She went to the ER 3 days after discharge as the metoprolol dose was increased prior and she was having lightheadedness, heart racing, and low BP. Chest x-ray showing likely a small pleural effusion on the left. Recommended follow-up with cardiology. Prior to her hospitalization, she called our office c/o dyspnea, dry coughing, and wheezing. CXR showed Bibasilar infiltrates may represent atelectasis or pneumonia. No significant change. Small pleural effusions. She was tx with doxycycline on 02/12. Today she reports improvement in symptoms since discharge. HAMMER is better and she is not coughing as much as she previously did. Tessalon Perles seem to help. She was to be setup on nebulizer with Duonebs last visit. However she reports she never got it. She has been using her rescue inhaler 2x/day which she feels helps. She reports unchanged symptoms of wheezing at times. Otherwise denies chest pains/tightness, fever, hemoptysis, or nighttime breathing issues. Current smoker 6 cigs/day. Smoker for 10 year 0.5ppd. Denies family hx of lung disease. Weight 175 lb room air saturations 95% plan: PFTs with prism. . Astepro did not help her coughing. Resend an order for nebulizer with DuoNebs p.r.n.. Pleural effusions: CT scan of the chest. 05/06/2025: CT scan of the chest with a very small left pleural effusion, discoid atelectasis anterior left lower lobe and minimal right dependent atelectasis in the right lower lobe. No emphysematous changes. No nodules or masses. 06/17/2025: Patient presented to the emergency room with dyspnea on exertion for 2-3 days, wheezing, room air saturations 95%. Chest x-ray with no acute abnormalities. Patient was diagnosed with bronchitis and treated with prednisone x5 days. Patient took this prednisone as prescribed but 1 day after finishing the prednisone she had worsening shortness of breath. 06/22/2025 patient presented to the emergency department with worsening shortness of breath, cough, wheezes the felt like worsening COPD exacerbation. Blood pressure 110/58, heart rate 81, respirations 22, room air saturations 86%. Patient was placed on 3 L nasal cannula saturations were 98%. She had diffuse wheezes. White blood cell count was 10.9, eosinophils 0.6%. BNP 3630. Creatinine 1.09. COVID influenza RSV RT PCR assay negative. Chest x-ray showed small effusions with congestion. She was given 2 L IV fluid, Solu-Medrol, Lasix 20 IV, ceftriaxone and doxycycline. MRSA swab was negative. 06/23/2025: Patient developed AFib RVR requiring IV metoprolol and IV diltiazem. She had worsening oxygenation requiring Airvo at 8:00 p.m. 45 L, 80% FiO2 with saturations 92%. Antibiotics were changed to vancomycin and Levaquin. Her MRSA swab was negative and vancomycin was discontinued. 06/24/2025: Patient tells me she has improved. She has 50% back to her normal. Her cough is essentially resolved. She denies phlegm or hemoptysis. She has no wheezing. When I enter the room she was on Airvo 40 L, 66% FiO2 with saturations 96%. The placed her on 15 L nasal cannula and sequentially decreased her to 10 L nasal cannula saturations 93%. Clinically she had no change when I switched her to nasal cannula oxygen. White blood cell count 18.1, creatinine 1.01. Procalcitonin unchanged from 0.1 on 06/23/2025 20.1 today. CRP today 13.0. BNP has improved from 3630 on 06/22/2025 to 2770 today. she has been diuresed with Lasix 40 IV b.i.d.. Yesterday she was positive 379 mL. Cumulative she is positive 2.7 L since admission. Her heart rate was AFib 130-140 and I have discontinue levalbuterol. 06/25/2025: Patient said she did well yesterday and slept well through the night. This morning she had gotten up to the chair and her heart rate increased to 170 and she had worsening shortness of breath. She denies any current cough, phlegm or hemoptysis. Currently she is on 10 L nasal cannula with saturation 96%. Her heart rate is 150-175 irregularly irregular. White blood cell count 16.2, creatinine 1.03 yesterday she was -500 mL. Cumulative she is positive 2.0 L since admission. Her weight today is 90.2. [employer] has been notified regarding her AFib with RVR. 06/26/25: Patient was agitated and had pain through the night and is receive narcotics, BuSpar, on gabapentin, risperidone as well. The pulse morning says she is breathing worse, worse cough with no phlegm and no hemoptysis. She is lethargic and I ordered a stat ABG on 7 L nasal cannula shows 7.42/50/74. Her heart rate was 120 and she is scheduled to receive her diltiazem and metoprolol. I called the nurse back in an hour and her heart rate now is 70- 80, her respiratory status has improved and she is on 4 L nasal cannula saturations 93-95%. She is afebrile. White blood cell count 11.1, creatinine 0.84. Yesterday she was -640 mL. Cumulative she is positive 1.6 L since admission. her weight today is 84.3 kg. Her BNP is worse from 2770 on 06/24/2025 to 5330. Her CRP is increased from 13 on 06/24/2025 to 18.2 today. Her chest x-ray today shows continued infiltrates and congestion with no significant change from 06/23/2025. 06/27/25: The patient tells me she feels better today. Overall she says her breathing is 50% back to her normal. She has no cough, phlegm, hemoptysis. She did not feel any fever. When I enter the room she was on 5 L nasal cannula saturations 95%. I decreased her to 3 L nasal cannula her saturations were 89%. I placed her back on 4 L nasal cannula saturations 92%. Patient had a fever last night at 8:00 p.m. a 37.9. White blood cell count 10.7, creatinine 0.87. BNP has improved from 5330 on 06/26/2025 to 3450 today. Yesterday she was positive 260 mL, . Cumulative she is positive 1.9 L since admission. Her weight today is 84.3 kg. DATA: 06/23/25: EXAMINATION: CT diagnostic chest wo con, 06/23/2025 18:00 [employer] HISTORY: Pulm edema vs pneumnia COMPARISON: No comparisons available. FINDINGS: No significant coronary calcification is present ([id number]) LUNGS: Trace left pleural effusion. Trace right pleural effusion. No tr acheomalacia. No bronchiectasis. Minimal emphysematous changes. Mild pulmonary fibrotic changes. There are bilateral areas of groundglass attenuation with infiltrates in the upper lobes bilaterally, the left lower lobe and the right lower lobe as well as the right middle lobe. Scattered micronodules are noted which are probably infectious. HEART AND PERICARDIUM: Mild cardiomegaly. Trace pericardial effusion. AORTA: Normal caliber aorta. ADENOPATHY/MEDIASTINUM: None. LIMITED VIEWS OF THE ABDOMEN: Complex appearing liver cysts the largest right lobe liver 1 x 1 cm. Right kidney renal calculi noted the largest mid pole 3 mm with partially imaged probable renal cyst 2 x 2 cm. Left kidney renal calculi the largest mid pole 2 mm. There is thickening of the adrenal glands bilaterally with left adrenal nodule 1 x 1 cm probable benign adrenal adenoma. Small hiatal hernia noted. OSSEOUS STRUCTURES: No acute osseous abnormality.No suspicious lesions. OVERLYING SOFT TISSUES: Unremarkable. THYROID: The thyroid is unremarkable. IMPRESSION: Severe bilateral bronchopneumonia. Follow-up recommended to assess resolution. 06/22/25: Echo Summary 1. Left ventricular systolic function is hyperdynamic, estimated at >70. 2. There is mildly increased left ventricular wall thickness. 3. The left ventricular diastolic function is abnormal. 4. Left atrial chamber dimension is mildly enlarged. 5. There is small pericardial effusion. 6. atrial fibrillation with RVR. Right Ventricle Right ventricular chamber dimension is normal. Right ventricular systolic function is normal. Left Atria Left atrial chamber dimension is mildly enlarged. Right Atria Right atrial chamber dimension is normal. No tricuspid regurg and no PASP calculated 05/06/25: EXAMINATION: CT diagnostic chest wo con INDICATION: J90 - Pleural effusion, not elsewhere classified COMPARISON: CT dated 02/22/2025 FINDINGS: Tiny left pleural effusion. Discoid atelectasis in the left upper lobe and lingula along the major fissure. Compressive atelectasis in the anterior basilar left lower lobe along side the enlarged heart discoid and basilar atelectasis in the right lower lobe and atelectasis at the posterior medial aspect of the right middle lobe. No pulmonary edema, pneumonia or right-sided pleural effusion. Atherosclerotic coronary artery calcification is. No pericardial effusion. Thoracic aorta is normal in caliber. No pathologically enlarged thoracic lymphadenopathy. Multiple scattered small bilateral nonobstructing renal stones the largest in the right kidney measuring 4-5 mm. 3.3 cm right renal cyst. There are also several smaller cysts in the liver measuring up to 1.4 cm. 1.5 cm low- attenuation left adrenal adenoma. Mild thoracic dextroscoliosis with moderate to severe spondylosis. T10 hemangioma. C5-C7 anterior spinal fusion with anterior plate and screw fixation.. IMPRESSION: 1. Very small left pleural effusion and scattered atelectasis in the left mid and bilateral lower lung zones. 2. Cardiomegaly. 3. Bilateral nonobstructing nephrolithiasis. 03/30/25: EXAMINATION: MR abdomen wo/w con INDICATION: Liver disease, unspecified. TECHNIQUE: Magnetic resonance imaging (MRI) of the abdomen was performed without and with 15 mL MultiHance intravenous contrast. COMPARISON: Abdomen MRI 01/18/2020 FINDINGS: Cardiomegaly is noted. No pericardial effusion. There is trace pleural effusions. There is diffuse hepatic steatosis. There are cysts in the liver measuring up to 11 mm. The gallbladder is absent. The common duct measures 12 mm in diameter, likely not clinically significant given the normal liver function tests on 03/27/2025. The spleen, pancreas, and right adrenal gland are normal. There is chronic thickening of left adrenal gland, likely benign. There are cysts in the kidneys measuring up to 3.8 cm on the right. There are no dilated loops of bowel. There are no pathologically enlarged lymph nodes. There is no free intraperitoneal fluid. IMPRESSION: 1. Diffuse hepatic steatosis. 02/22/2025: EXAMINATION: CTA chest PE protocol INDICATION: Palpitations. Atrial fibrillation. COMPARISON: 09/02/2017 FINDINGS: Cervical hardware. There is a mildly enlarged 1.4 cm subcarinal lymph node similar to the study from 09/02/2017. There are a few additional nonenlarged mediastinal and hilar lymph nodes. Several new low-density lesions scattered throughout the liver, the largest measures 1.5 cm in the right lobe of the liver. A Liver mass MRI is recommended. There is a too small to characterize low-attenuation lesion in the right kidney. Indeterminate 2.3 cm left adrenal nodule. An adrenal mass MRI is recommended. Heart is moderately enlarged. There are coronary artery calcifications. Thoracic aorta is not aneurysmal. Mild to moderate discredit disease in the thoracic aorta. Small left-sided pleural effusion. Bones appear osteopenic. Multilevel degenerative change in the visualized spine. Visualized tracheobronchial tree is patent. Tiny right-sided pleural effusion. Mild biapical scarring. There are a few small groundglass and patchy opacities in both lungs most prominent in the lower lobes. IMPRESSION: 1. There are a few small groundglass and patchy opacities in both lungs most prominent in the lower lobes. Differential includes but is not limited to atelectasis/scarring or infiltrates. 2. Small left-sided pleural effusion. Tiny right-sided pleural effusion. 3. Several new low-density indeterminate lesions scattered throughout the liver, the largest measures 1.5 cm in the right lobe of the liver. A Liver mass MRI is recommended. 4. Indeterminate 2.3 cm left adrenal nodule. An adrenal mass MRI is recommended. CXR 02/28/25 - Confluent opacity in the lower third of the left hemithorax. Differential includes a combination of pleural fluid with adjacent atelectasis and/or consolidation. An underlying mass is possible. Recommend follow-up to resolution. Consider a chest CT. Small patchy opacities in the right mid and lower lung. Differential includes metastasis/scarring or infiltrates. 12/12/2024: This is a pulmonary function test with pre and post-bronchodilator spirometry, plethysmography and diffusing capacity. The test was performed and results interpreted in accordance with the 2019 and 2005 ATS/ERS Task Force guidelines respectively using the Global Lung Function Initiative-2012 reference equations. Patient demonstrated good effort and cooperation. Reproducibility criteria were met. The quality of the pre bronchodilator spirometry maneuver was Grade A and post bronchodilator spirome try maneuver was Grade A. Findings: Spirometry: The contour the inspiratory and expiratory flow tracing are normal. The pre bronchodilator FVC is 1.90 L, 76% predicted. The pre bronchodilator FEV1 is 1.34 L, 69% predicted. The pre bronchodilator FEV1: FVC ratio 70%. The post bronchodilator FVC is 1.89 L, representing a 1% decrease. The post bronchodilator FEV1 is 1.37 L, representing a 3% increase. The post bronchodilator FEV1: FVC ratio is 73%. Plethysmography: The total lung capacity is 4.01 L, 87% predicted. The functional residual capacity is 2.42 L, 92% predicted. The residual volume is 2.12 L, 102% predicted. Diffusing capacity: The diffusing capacity unadjusted for hemoglobin and carboxyhemoglobin is 10.0, 53% predicted. The diffusing capacity adjusted for alveolar volume is 3.03, 69% predicted. Impression: The FEV1 is less than 80% predicted and the FEV1: FVC ratio is greater than the lower limit of normal consistent with Preserved Ratio Impaired Spirometry (PRISm) with a normal FVC. The spirometry is normal without evidence of an obstructive abnormality. There is no significant improvement after inhaling a single dose of albuterol. The lung volumes are normal. The diffusing capacity unadjusted for hemoglobin and carboxyhemoglobin is moderately decreased and remains mildly decreased when adjusted for alveolar volume. There are no prior studies for comparison 12/12/2024: This is a 6 minute walk test. The test was performed and interpreted in accordance with the 2014 ERS/ATS task force guidelines. Of note, the last 2 minutes the patient used to wheeled walker due to back pain. Findings: The patient's resting room air oxygen saturation measured by pulse oximetry was 95%, the heart rate was 90 bpm, and the modified Thanh dyspnea score was 0. Patient ambulated for 213 meters and oxygen saturation remained 91 to 94%. At the end of the study the heart rate was 112 bpm and the modified Thanh dyspnea score was 0. The patient did not qualify for supplemental oxygen at rest or with ambulation. CXR 09/29/24 - Small left pleural effusion is present. Possible minimal right pleural effusion. Echo 10/23/22 - EF 55-60%, left ventricular diastolic function is abnormal, mild pulmHTN RVSP 46mmHg. 10/22/2022: EXAMINATION: CTA chest PE protocol INDICATION: Chest pain, shortness of breath and elevated d-dimer. COMPARISON: CT dated 09/02/2017 and chest x-ray dated 11/08/2022. FINDINGS: Study is technically limited for evaluation of right upper lobe pulmonary arteries due to motion and contrast bolus timing. No large central pulmonary embolism. Cardiomegaly. Small pleural effusions. There is mediastinal lymphadenopathy, likely reactive. Patchy groundglass opacities involving the upper lobes and right lower lobe. There is dependent atelectasis. No endobronchial lesions. No pneumothorax. No evidence for aortic aneurysm or dissection. There are multiple low-density lesions in the liver, largest in the right hepatic lobe showing 1.5 cm, compatible with a cyst. There is nodular thickening of the adrenal glands, likely secondary to benign adenomas. Moderate thoracic spondylosis. Surgical fusion changes present in the lower cervical spine. 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 IMPRESSION: 1. Patchy groundglass opacities, most confluent in the right upper lobe, consistent with pneumonia. 2: No large central pulmonary embolism. 3: Mediastinal lymphadenopathy, likely reactive. 4: Small pleural effusions. Review of Systems Constitutional: Constitutional: Reports no additional constitutional complaints Eyes: Eyes: Reports no additional eye complaints ENT: Reports system reviewed and no additional complaints, except as documented Cardiovascular: Cardiovascular: Reports no additional cardiovascular complaints Respiratory: Respiratory: Reports no additional respiratory complaints Gastrointestinal: Gastrointestinal: Reports no additional gastrointestinal complaints Musculoskeletal: Musculoskeletal: Reports no additional musculoskeletal complaints Neurologic: Reports system reviewed and no additional complaints, except as documented Psychiatric: Psychiatric: Reports no additional psychiatric complaints Endocrine: Endocrine: Reports no additional endocrine complaints Hematologic/Lymphatic: Hematologic/Lymphatic: Reports no additional hematologic/lymphatic complaints Allergic/Immunologic: Allergic/Immunologic: Reports no additional allergic/immunologic complaints Exam Const: General: cooperative, healthy appearing and comfortable Orientation/consciousness: oriented to person, oriented to place and oriented to time HENMT: Head: normal to inspection Ears: hearing grossly normal bilaterally Eyes: General: appearance normal, both eyes and all related structures Neck: Neck: normal visual inspection Chest: Chest palpation & inspection: normal inspection of the chest Resp: Effort & Inspection: normal respiratory effort and able to speak in complete sentences Auscultation: crackles, no rales, no rhonchi, no wheezes and lung sounds not diminished Other: improved Bibasilar crackles. Cardio: Jugular venous distension: no JVD GI: Inspection: normal to inspection Skin: General skin exam: normal color Neuro: General: oriented to person, oriented to place and oriented to time Extrem: General: normal to inspection Psych: Appearance: grossly normal Objective Data Vital Signs Vital Signs: Vital Signs - 24 hr 06/26/25 11:36 06/26/25 12:00 06/26/25 12:00 Temperature 36.9 C Pulse Rate 95 117 H Respiratory Rate 22 H Blood Pressure 110/60 Pulse Oximetry 94 92 Oxygen Delivery High Flow Nasal Cannula Oxygen Flow Rate 06/26/25 12:26 06/26/25 12:55 06/26/25 13:00 Temperature Pulse Rate 116 H 105 H Respiratory Rate 20 20 Blood Pressure Pulse Oximetry 93 Oxygen Delivery High Flow Nasal Cannula Oxygen Flow Rate 06/26/25 13:15 06/26/25 13:30 06/26/25 14:00 Temperature Pulse Rate 123 H Respiratory Rate Blood Pressure Pulse Oximetry 98 98 Oxygen Delivery High Flow Nasal Cannula High Flow Nasal Cannula Oxygen Flow Rate 5 3 06/26/25 15:36 06/26/25 16:00 06/26/25 16:00 Temperature 36.9 C Pulse Rate 95 105 H Respiratory Rate 24 H Blood Pressure 110/58 L Pulse Oximetry 94 92 Oxygen Delivery High Flow Nasal Cannula Oxygen Flow Rate 10 06/26/25 16:27 06/26/25 16:32 06/26/25 16:42 Temperature Pulse Rate 113 H 128 H Respiratory Rate 20 20 Blood Pressure Pulse Oximetry 98 Oxygen Delivery High Flow Nasal Cannula Oxygen Flow Rate 3 06/26/25 18:00 06/26/25 20:00 06/26/25 20:00 Temperature Pulse Rate 119 H 132 H Respiratory Rate Blood Pressure Pulse Oximetry 98 Oxygen Delivery High Flow Therapy with Na Oxygen Flow Rate 5 06/26/25 20:00 06/26/25 20:20 06/26/25 20:24 Temperature 37.9 C H Pulse Rate 124 H 117 H Respiratory Rate 24 H 20 Blood Pressure 118/88 Pulse Oximetry 99 93 Oxygen Delivery High Flow Therapy with Na Oxygen Flow Rate 10 06/26/25 20:28 06/26/25 20:57 06/26/25 23:58 Temperature Pulse Rate 111 H 120 H 102 H Respiratory Rate 20 20 Blood Pressure Pulse Oximetry Oxygen Delivery Oxygen Flow Rate 06/27/25 00:00 06/27/25 00:00 06/27/25 00:00 Temperature 37.7 C H Pulse Rate 115 H 116 H Respiratory Rate 24 H Blood Pressure 104/53 L Pulse Oximetry 98 95 Oxygen Delivery High Flow Therapy with Na Oxygen Flow Rate 5 06/27/25 00:03 06/27/25 04:00 06/27/25 04:00 Temperature Pulse Rate 105 H 90 Respiratory Rate 20 Blood Pressure Pulse Oximetry 98 Oxygen Delivery High Flow Therapy with Na Oxygen Flow Rate 8 06/27/25 04:00 06/27/25 04:10 06/27/25 04:15 Temperature 37.4 C Pulse Rate 106 H 94 97 Respiratory Rate 24 H 18 18 Blood Pressure 150/107 H Pulse Oximetry 99 Oxygen Delivery Oxygen Flow Rate 06/27/25 05:57 06/27/25 06:55 06/27/25 08:00 Temperature 37.2 C Pulse Rate 111 H 98 Respiratory Rate 22 H Blood Pressure 124/59 L Pulse Oximetry 96 99 Oxygen Delivery High Flow Therapy with Na Oxygen Flow Rate 6 06/27/25 08:53 Temperature Pulse Rate 100 Respiratory Rate Blood Pressure Pulse Oximetry Oxygen Delivery Oxygen Flow Rate Intake/Output Intake/Output: Intake & Output 06/24/25 06/25/25 06/26/25 06/27/25 23:59 23:59 23:59 23:59 Intake Total 1300 910 460 100 Output Total 1800 1550 200 Balance -500 -640 260 100 Meds/Results Medications: Active Medications Generic Name Dose Route Start Last Admin Trade Name Freq PRN Reason Stop Dose Admin Acetaminophen 650 mg 06/22/25 14:49 06/24/25 20:18 Acetaminophen 325 Mg Tablet PO 650 mg Q4H PRN Administration Mild Pain (1-3) or Fever Hydrocodone Bitart/Acetaminophen 1 tab 06/23/25 08:08 06/26/25 03:04 Hydrocodone/Acetaminophen (*Crx) 5-325 Mg Tablet PO 1 tab Q8H PRN Administration Pain Benzonatate 100 mg 06/22/25 16:14 06/26/25 07:56 Benzonatate 100 Mg Capsule PO 100 mg TID PRN Administration Cough Budesonide 0.5 mg 06/24/25 20:00 06/27/25 07:55 Budesonide Respule Neb 0.5 Mg/2 Ml Amp INHALATION 0.5 mg Q12HRT ROSE MARY Administration Dextrose 12.5 gm 06/22/25 15:39 Dextrose 50% 25 Gm/50 Ml Syringe IV PUSH PRN PRN Hypoglycemia Protocol Diltiazem HCl 90 mg 06/26/25 18:00 06/27/25 05:00 Diltiazem Hcl 60 Mg Tablet PO 90 mg Q6HR ROSE MARY Administration Duloxetine HCl 60 mg 06/22/25 17:00 06/27/25 08:53 Duloxetine Hcl 60 Mg Capsule.Dr PO 60 mg BID ROSE MARY Administration Furosemide 40 mg 06/26/25 17:00 06/27/25 08:53 Furosemide 40 Mg Tablet PO 40 mg BIDWM ROSE MARY Administration Gabapentin 400 mg 06/27/25 06:00 06/27/25 05:00 Gabapentin 400 Mg Capsule PO 400 mg Q8HR ROSE MARY Administration Glucagon 1 mg 06/22/25 15:39 Glucagon For Inj 1 Mg Vial IM PRN PRN Hypoglycemia Protocol Glucose 15 gm 06/22/25 15:39 Glucose Oral Gel 15 Gm Of Glucse In 37.5 Gm Tube PO PRN PRN Hypoglycemia Protocol Guaifenesin 1,200 mg 06/24/25 21:00 06/27/25 08:53 Guaifenesin 12 Hr 600 Mg Tabcr PO 1,200 mg Q12HR ROSE MARY Administration Dextrose 1,000 mls @ 100 mls/hr 06/22/25 15:39 Dextrose 5% 1,000 Ml IVPB PRN PRN Hypoglycemia Protocol Levofloxacin/Dextrose 750 mg in 150 mls @ 100 mls/hr 06/26/25 15:00 06/26/25 12:53 Levaquin 750 Mg/D5w 150 Ml IVPB 100 mls/hr DAILY@1500 ROSE MARY Administration Ipratropium Curlew 0.5 mg 06/24/25 12:00 06/27/25 07:55 Ipratropium Br 0.02% Inh Soln 0.5 Mg/2.5 Ml Vial INHALATION 0.5 mg Q4HRT ROSE MARY Administration Lorazepam 0.5 mg 06/26/25 12:51 06/26/25 20:58 Lorazepam (*Crx) 0.5 Mg Tablet PO 0.5 mg DAILY PRN Administration Anxiety Losartan Potassium 25 mg 06/22/25 17:00 06/27/25 08:53 Losartan Potassium 25 Mg Tablet PO 25 mg BID ROSE MARY Administration Metoprolol Tartrate 50 mg 06/25/25 09:00 06/27/25 08:53 Metoprolol Tartrate 50 Mg Tab PO 50 mg Q12HR ROSE MARY Administration Nitroglycerin 0.4 mg 06/22/25 15:39 Nitroglycerin Sl 0.4 Mg Tablet SUBLINGUAL Q5MIN PRN Chest Pain Risperidone 1 mg 06/22/25 17:00 06/27/25 08:54 Risperidone 1 Mg Tablet PO 1 mg TID ROSE MARY Administration Rivaroxaban 20 mg 06/22/25 17:00 06/26/25 16:07 Rivaroxaban 20 Mg Tablet PO 20 mg DAILY@1700 ROSE MARY Administration Simvastatin 20 mg 06/22/25 21:00 06/26/25 20:56 Simvastatin 20 Mg Tablet PO 20 mg HS ROSE MARY Administration Vitamin D 50 mcg 06/23/25 09:00 06/27/25 08:53 Cholecalciferol (Vitamin D3) 25 Mcg (1,000 Units) Tablet PO 50 mcg DAILY ROSE MARY Administration Radiology Results: ITS Impressions Head CT 06/23/25 12:29 IMPRESSION: 1. No acute intracranial findings. Chest CT 06/23/25 18:21 IMPRESSION: Severe bilateral bronchopneumonia. Follow-up recommended to assess resolution. Chest X-Ray 06/26/25 08:11 Impression: CHF. Superimposed left lower lobe probable pneumonia. The findings appear relatively unchanged Labs Labs: Laboratory Results - last 24 hr 06/24/25 06/25/25 06/27/25 09:50 04:07 04:33 WBC 10.7 H RBC 3.80 L Hgb 10.9 L Hct 34.5 L MCV 90.8 MCH 28.7 MCHC 31.6 L RDW 15.8 H Plt Count 262 MPV 10.9 H Sodium 145 Potassium 2.9 L Chloride 109 H Carbon Dioxide 32 H Anion Gap 4 BUN 28 H Creatinine 0.87 Estim Creat Clear Calc 50 Estimated GFR > 60 Glucose 134 H Calcium 9.1 Total Bilirubin 0.7 AST 24 ALT 12 Alkaline Phosphatase 50 NT-Pro-B Natriuret Pep 3450 H Total Protein 6.3 Albumin 3.3 L Chlamy pneumoniae PCR Not detected Adenovirus (PCR) Not detected B. pertussis DNA (PCR) Not detected B.parapertussis DNA PCR Not detected Coronavirus OC43 (PCR) Not detected Coronavirus HKU1 (PCR) Not detected Coronavirus 229E (PCR) Not detected Coronavirus NL63 (PCR) Not detected Human Metapneumovir PCR Not detected Influenza A (H1) PCR Not detected Influ A (H1/09) PCR Not detected Influenza A (H3) PCR Not detected Influenza Type A (PCR) Not detected Influenza Type B (PCR) Not detected M.pneumoniae IgM Titer <770 M. pneumoniae (PCR) Not detected Parainfluenza 1 (PCR) Not detected Parainfluenza 2 (PCR) Not detected Parainfluenza 3 (PCR) Not detected Parainfluenza 4 (PCR) Not detected RSV (PCR) Not detected Entero/Rhino (PCR) Not detected SARS-CoV-2 (PCR) Not detected
[2025-06-27 11:06] LABS: Procalcitonin 0.1 ng/mL
[2025-06-27 11:14] LABS: CRP 27.5 mg/dL (<1.0)
[2025-06-27 14:52] LABS: Anion Gap 3 mmol/L (4-12); Blood Urea Nitrogen 28 mg/dL (7-17); Calcium 9.5 mg/dL (8.4-10.2); Carbon Dioxide 31 mmol/L (22-30); Chloride 111 mmol/L (98-107); Estimated CRCL calculation 46 ml/min; Estimated Glomerular Filt Rate 58; Glucose 158 mg/dL (65-110); Magnesium 1.9 mg/dL (1.6-2.3); Potassium 3.4 mmol/L (3.4-5.0); Sodium 145 mmol/L (137-145)
[2025-06-27] MEDS: levoFLOXacin 750 MG/D5W 150 ML 750 MG/150 ML BAG 100 MG IVPB (14:53)
[2025-06-27] MEDS: ACETAMINOPHEN 325 MG TABLET 650 MG PO (15:53)
[2025-06-27] MEDS: RIVAROXABAN 20 MG TABLET PO (17:56)
[2025-06-27] MEDS: SIMVASTATIN 20 MG TABLET PO (20:08)
[2025-06-27] MEDS: HYDROcodone/acetaminophen (*CRX) 5-325 MG TABLET 1 TAB PO (21:41)
[2025-06-28] VITALS (25 sets, daily range): BP systolic 85–129; BP diastolic 55–67; PULSE 76–124; RESP 14–22; TEMP 36.7–37.2; O2SAT 92–98
[2025-06-28] MEDS: IPRATROPIUM BR 0.02% INH SOLN 0.5 MG/2.5 ML VIAL INHALATION ×3 (01:15→08:10)
[2025-06-28 04:29] LABS: Hematocrit 34.7 % (37.0-47.0); Hemoglobin 11.1 g/dL (12.0-15.0); Mean Corpuscular HGB Conc 32.0 g/dl (32-36); Mean Corpuscular Hemoglobin 29.2 pg (26-34); Mean Corpuscular Volume 91.3 fl (80-100); Platelet Count Result 256 k/mm3 (150-375); Red Blood Count 3.80 M/mm3 (4.2-5.4); White Blood Count 10.9 K/mm3 (4.5-10.0)
[2025-06-28] MEDS: LORazepam (*CRX) 0.5 MG TABLET PO ×3 (04:41→20:24)
[2025-06-28 04:47] LABS: Alanine Aminotransferase 13 U/L (6-35); Albumin Level 3.2 g/dL (3.5-5.1); Alkaline Phosphatase 52 U/L (38-126); Anion Gap 3 mmol/L (4-12); Aspartate Amino Transferase 22 U/L (14-36); Bilirubin,Total 0.6 mg/dL (0.2-1.3); Blood Urea Nitrogen 29 mg/dL (7-17); Calcium 9.3 mg/dL (8.4-10.2); Carbon Dioxide 31 mmol/L (22-30); Chloride 112 mmol/L (98-107); Estimated CRCL calculation 46 ml/min; Estimated Glomerular Filt Rate 56; Glucose 127 mg/dL (65-110); Potassium 3.6 mmol/L (3.4-5.0); Sodium 146 mmol/L (137-145); Total Protein 6.2 g/dL (6.3-8.2)
[2025-06-28 04:53] LABS: NT Pro B Type Natriuretic Pept 1970 pg/mL (19.9-100)
[2025-06-28] MEDS: GABAPENTIN 400 MG CAPSULE PO ×2 (05:07→20:24)
--- NOTE | 2025-06-28 07:55 | PM.IMPN2 ---
Assessment and Plan Assessment and Plan (1) COPD (chronic obstructive pulmonary disease): Qualifiers: COPD type: unspecified COPD Qualified Code(s): J44.9 - Chronic obstructive pulmonary disease, unspecified Code(s): J44.9 - Chronic obstructive pulmonary disease, unspecified Status: Chronic Assessment and Plan: New shortness of breath, chronic dry cough that initially improved with nebulizer in the ED on 06 17. However has been progressively more short of breath since then. Admitted on 06/22. Initial evaluation in the ED showed diffuse expiratory wheezing, new O2 requirement, and tachypnea. Modestly improved with nebulizers. - continue levalbuterol/HR vent scheduled - prednisone 40 mg daily x5 days, given Solu-Medrol in the ED initially - s/pceftriaxone and doxycycline on 06/22, allergy to erythromycin - Mucinex yudelka - continue supplemental O2 to maintain O2 sat greater than 92%, currently requiring 3L NC. No baseline requirement. (2) Atrial fibrillation with rapid ventricular response: Code(s): I48.91 - Unspecified atrial fibrillation Status: Acute Assessment and Plan: Patient arrived in NSR. Post multiple breathing treatments she developed AFib RVR, has history of AFib. Minimal response with metoprolol 5 mg IV x2. Given home metoprolol dose orally. Remains in the 120s, intermittently in the 150s. If no improvement with third dose of IV metoprolol, will transition to IV diltiazem. - admission to IMU - telemetry monitoring - Continue Cardizem and Metoprolol per cardiology, monitor HR - TSH reviewed, 1.44 on 02/23/2025 - continue Xarelto (3) Acute exacerbation of CHF (congestive heart failure): Qualifiers: Heart failure type: diastolic Qualified Code(s): I50.33 - Acute on chronic diastolic (congestive) heart failure Code(s): I50.9 - Heart failure, unspecified Status: Acute Assessment and Plan: CXR concerning for small bilateral pleural effusions with vascular changes which may represent mild vascular congestion or atypical inflammatory/infectious process. Denies any new peripheral edema or weight gain, does report she is at 3 lb of weight gain over the past few months however does not feel it is fluid related. Last echo on file in 2022 which showed EF of 55-60%, diastolic dysfunction, LV wall thickness increased, LA chamber moderately enlarged, mild pulmonary hypertension, trivial pericardial effusion. - update echo - monitor I&Os daily weights - s/p IV Lasix , now on Lasix 40mg daily increased to b.i.d. (4) Elevated troponin: Code(s): R79.89 - Other specified abnormal findings of blood chemistry Status: Acute Assessment and Plan: Likely type 2 given new hypoxia. Was 86% on room air due to COPD exacerbation. Troponin currently downtrending. No reports of chest pain. Does have some chest tightness with exertion, however shortness of breath significantly worsens with exertion as well. Now additionally in AFib RVR secondary to nebulizer treatments. EKG reviewed, no significant ST depressions or elevations. PACs and PVCs now present when compared to previous. - trend troponin - SL nitro p.r.n. (5) Hypertension: Qualifiers: Hypertension type: primary hypertension Qualified Code(s): I10 - Essential (primary) hypertension Code(s): I10 - Essential (primary) hypertension Status: Chronic Assessment and Plan: - chronic, currently 157/53, stable. - continue home medications: Losartan 25 mg b.i.d.. Holding metoprolol, see above. - monitor (6) Diabetes mellitus: Qualifiers: Diabetes mellitus complication status: without complication Diabetes mellitus shelter insulin use: without intermediate accountant use Diabetes mellitus type: type 2 Qualified Code(s): E11.9 - Type 2 diabetes mellitus without complications Code(s): E11.9 - Type 2 diabetes mellitus without complications Status: Chronic Assessment and Plan: Diet controlled. Last A1c 5.9% on 03/27/2025. - hypoglycemia protocol p.r.n. (7) Anxiety: Code(s): F41.9 - Anxiety disorder, unspecified Status: Acute Assessment and Plan: Psychiatry evaluated the patient and advised duloxetine 60 mg daily instead of b.i.d., risperidone 1 mg b.i.d. not t.i.d., reduce gabapentin from 800 mg q.i.d. to 300-400 mg t.i.d., discontinue hydroxyzine, continue lorazepam 0.5 mg p.o./SL q.6-8hrs, and discontinue buspirone. Plan Acute hypoxemic respiratory failure on HFNC Severe bilateral bronchopneumonia, CT chest reviewed CXR showed bilateral infiltrates MRSA negative Continue Levaquin and Doxycycline Increase Lasix 40mg po daily to b.i.d. titrate oxygen monitor Pulmonology following Diet: Heart healthy DVT Prophylaxis: Xarelto Lines/Tubes: pIV Code Status: Full code Subjective Date/time seen: 06/28/25 07:55 Interval history: Patient reports that she is feeling better. Blood culture pending Patient needs SNF or intermediate accountant care Review of Systems Review of Systems: All systems reviewed & are unremarkable except as noted in HPI and below Exam Const: General: comfortable and no acute distress Other: , female, elderly, nontoxic appearance HENMT: Face/Nose/Sinus: Normal nares present Mouth: Yes moist mucous membranes Eyes: General: appearance normal, both eyes and all related structures Sclera: sclerae normal Pupils: Equal, round and reactive pupils present EOM: EOMs intact bilaterally Resp: Other: Faint expiratory wheeze, mild tachypnea (ambulated to the restroom just prior to exam). No crackles appreciated. Cardio: Rate: tachycardic Rhythm: abnormal rhythm (Consistent with AFib) Other: S1-S2 present without murmur, rub, ectopy GI: Other: Abdomen soft, nondistended, nontender. Normoactive bowel sounds in all quadrants. Skin: General skin exam: normal color and no rashes or lesions noted Wounds: no wounds Neuro: Cranial nerves: Yes Equal, round and reactive pupils present Speech: normal speech Motor exam (neuro): 5/5 motor strength present throughout Sensory Exam: normal sensation Other: A&O x4 Extrem: Other: Trace edema to the bilateral ankles, symmetric and nonpitting Psych: Mental Status: mental status grossly normal Affect: normal affect Other: Good insight and judgment. Objective Data Vital Signs Vital Signs: Vital Signs - 24 hr 06/27/25 08:00 06/27/25 08:00 06/27/25 08:10 Temperature 98.9 F Pulse Rate 98 107 H 110 H Respiratory Rate 22 H 20 Blood Pressure 124/59 L Pulse Oximetry 99 Oxygen Delivery Oxygen Flow Rate 06/27/25 08:53 06/27/25 10:00 06/27/25 12:00 Temperature 99.2 F Pulse Rate 100 81 104 H Respiratory Rate 24 H Blood Pressure 109/58 L Pulse Oximetry 96 Oxygen Delivery Oxygen Flow Rate 06/27/25 12:00 06/27/25 12:00 06/27/25 12:20 Temperature Pulse Rate 105 H 99 Respiratory Rate 20 Blood Pressure Pulse Oximetry 94 93 Oxygen Delivery High Flow Therapy with Na High Flow Nasal Cannula Oxygen Flow Rate 3 3 06/27/25 12:20 06/27/25 12:31 06/27/25 13:47 Temperature Pulse Rate 99 111 H Respiratory Rate 20 20 Blood Pressure Pulse Oximetry Oxygen Delivery High Flow Nasal Cannula Oxygen Flow Rate 3 06/27/25 14:00 06/27/25 16:00 06/27/25 16:00 Temperature 99.6 F Pulse Rate 93 111 H 105 H Respiratory Rate 26 H Blood Pressure 150/80 H Pulse Oximetry 91 Oxygen Delivery Oxygen Flow Rate 06/27/25 16:00 06/27/25 16:06 06/27/25 16:06 Temperature Pulse Rate 114 H 114 H Respiratory Rate 20 20 Blood Pressure Pulse Oximetry 96 92 Oxygen Delivery Nasal Cannula High Flow Nasal Cannula Oxygen Flow Rate 3 3 06/27/25 16:13 06/27/25 18:00 06/27/25 20:00 Temperature Pulse Rate 117 H 113 H Respiratory Rate 20 Blood Pressure Pulse Oximetry 94 Oxygen Delivery High Flow Nasal Cannula Oxygen Flow Rate 3 06/27/25 20:00 06/27/25 20:00 06/27/25 20:08 Temperature 98.6 F Pulse Rate 94 102 H 98 Respiratory Rate 26 H Blood Pressure 96/29 L Pulse Oximetry 93 Oxygen Delivery Oxygen Flow Rate 06/27/25 20:20 06/27/25 20:20 06/27/25 20:32 Temperature Pulse Rate 93 93 Respiratory Rate 18 18 16 Blood Pressure Pulse Oximetry 93 Oxygen Delivery High Flow Nasal Cannula Oxygen Flow Rate 3 06/27/25 22:00 06/27/25 23:11 06/27/25 23:58 Temperature 97.8 F Pulse Rate 78 80 Respiratory Rate 26 H Blood Pressure 80/50 L Pulse Oximetry 94 94 Oxygen Delivery High Flow Nasal Cannula Oxygen Flow Rate 3 06/27/25 23:58 06/28/25 01:15 06/28/25 02:00 Temperature Pulse Rate 79 76 86 Respiratory Rate 14 Blood Pressure Pulse Oximetry Oxygen Delivery Oxygen Flow Rate 06/28/25 04:00 06/28/25 04:00 06/28/25 04:45 Temperature 98.3 F Pulse Rate 80 112 H Respiratory Rate 22 H 20 Blood Pressure 112/58 L Pulse Oximetry 92 92 Oxygen Delivery High Flow Nasal Cannula Oxygen Flow Rate 3 06/28/25 04:54 06/28/25 06:00 Temperature Pulse Rate 105 H 110 H Respiratory Rate 20 Blood Pressure Pulse Oximetry Oxygen Delivery Oxygen Flow Rate Intake/Output Intake/Output: Intake & Output 06/25/25 06/26/25 06/27/25 06/28/25 23:59 23:59 23:59 23:59 Intake Total 910 460 610 150 Output Total 1550 200 Balance -640 260 610 150 Meds/Results Medications: Active Medications Generic Name Dose Route Start Last Admin Trade Name Freq PRN Reason Stop Dose Admin Acetaminophen 650 mg 06/22/25 14:49 06/27/25 15:53 Acetaminophen 325 Mg Tablet PO 650 mg Q4H PRN Administration Mild Pain (1-3) or Fever Hydrocodone Bitart/Acetaminophen 1 tab 06/23/25 08:08 06/27/25 21:41 Hydrocodone/Acetaminophen (*Crx) 5-325 Mg Tablet PO 1 tab Q8H PRN Administration Pain Benzonatate 100 mg 06/22/25 16:14 06/26/25 07:56 Benzonatate 100 Mg Capsule PO 100 mg TID PRN Administration Cough Budesonide 0.5 mg 06/24/25 20:00 06/27/25 20:19 Budesonide Respule Neb 0.5 Mg/2 Ml Amp INHALATION 0.5 mg Q12HRT YUDELKA Administration Dextrose 12.5 gm 06/22/25 15:39 Dextrose 50% 25 Gm/50 Ml Syringe IV PUSH PRN PRN Hypoglycemia Protocol Diltiazem HCl 90 mg 06/26/25 18:00 06/28/25 05:07 Diltiazem Hcl 60 Mg Tablet PO 90 mg Q6HR YUDELKA Administration Duloxetine HCl 60 mg 06/28/25 09:00 Duloxetine Hcl 60 Mg Capsule.Dr PO DAILY YUDELKA Furosemide 40 mg 06/26/25 17:00 06/27/25 17:56 Furosemide 40 Mg Tablet PO 40 mg BIDWM YUDELKA Administration Gabapentin 400 mg 06/27/25 06:00 06/28/25 05:07 Gabapentin 400 Mg Capsule PO 400 mg Q8HR YUDELKA Administration Glucagon 1 mg 06/22/25 15:39 Glucagon For Inj 1 Mg Vial IM PRN PRN Hypoglycemia Protocol Glucose 15 gm 06/22/25 15:39 Glucose Oral Gel 15 Gm Of Glucse In 37.5 Gm Tube PO PRN PRN Hypoglycemia Protocol Guaifenesin 1,200 mg 06/24/25 21:00 06/27/25 20:07 Guaifenesin 12 Hr 600 Mg Tabcr PO 1,200 mg Q12HR YUDELKA Administration Dextrose 1,000 mls @ 100 mls/hr 06/22/25 15:39 Dextrose 5% 1,000 Ml IVPB PRN PRN Hypoglycemia Protocol Levofloxacin/Dextrose 750 mg in 150 mls @ 100 mls/hr 06/26/25 15:00 06/28/25 07:39 Levaquin 750 Mg/D5w 150 Ml IVPB Infused DAILY@1500 YUDELKA Infusion Ipratropium [place] 0.5 mg 06/24/25 12:00 06/28/25 04:45 Ipratropium Br 0.02% Inh Soln 0.5 Mg/2.5 Ml Vial INHALATION 0.5 mg Q4HRT YUDELKA Administration Lorazepam 0.5 mg 06/27/25 11:35 06/28/25 04:41 Lorazepam (*Crx) 0.5 Mg Tablet PO 0.5 mg Q6H PRN Administration Anxiety Losartan Potassium 25 mg 06/22/25 17:00 06/27/25 17:56 Losartan Potassium 25 Mg Tablet PO 25 mg BID YUDELKA Administration Metoprolol Tartrate 50 mg 06/25/25 09:00 06/27/25 20:08 Metoprolol Tartrate 50 Mg Tab PO 50 mg Q12HR YUDELKA Administration Nitroglycerin 0.4 mg 06/22/25 15:39 Nitroglycerin Sl 0.4 Mg Tablet SUBLINGUAL Q5MIN PRN Chest Pain Risperidone 1 mg 06/27/25 21:00 06/27/25 20:08 Risperidone 1 Mg Tablet PO 1 mg HS YUDELKA Administration Risperidone 0.5 mg 06/28/25 09:00 Risperidone 0.25 Mg Tablet PO DAILY YUDELKA Rivaroxaban 20 mg 06/22/25 17:00 06/27/25 17:56 Rivaroxaban 20 Mg Tablet PO 20 mg DAILY@1700 YUDELKA Administration Simvastatin 20 mg 06/22/25 21:00 06/27/25 20:08 Simvastatin 20 Mg Tablet PO 20 mg HS YUDELKA Administration Vitamin D 50 mcg 06/23/25 09:00 06/27/25 08:53 Cholecalciferol (Vitamin D3) 25 Mcg (1,000 Units) Tablet PO 50 mcg DAILY YUDELKA Administration Radiology Results: ITS Impressions Head CT 06/23/25 12:29 IMPRESSION: 1. No acute intracranial findings. Chest CT 06/23/25 18:21 IMPRESSION: Severe bilateral bronchopneumonia. Follow-up recommended to assess resolution. Chest X-Ray 06/28/25 07:51 IMPRESSION: 1. Improved aeration of left lung base with decreased size of effusion. Layering effusion may be present along with persisting pulmonary edema/consolidation. Labs Labs: Laboratory Results - last 24 hr 06/27/25 06/27/25 06/28/25 04:33 14:32 04:13 WBC 10.9 H RBC 3.80 L Hgb 11.1 L Hct 34.7 L MCV 91.3 MCH 29.2 MCHC 32.0 RDW 15.8 H Plt Count 256 MPV 10.4 Sodium 145 146 H Potassium 3.4 3.6 Chloride 111 H 112 H Carbon Dioxide 31 H 31 H Anion Gap 3 L 3 L BUN 28 H 29 H Creatinine 0.95 0.97 Estim Creat Clear Calc 46 46 Estimated GFR 58 L 56 L Glucose 158 H 127 H Calcium 9.5 9.3 Magnesium 1.9 Total Bilirubin 0.6 AST 22 ALT 13 Alkaline Phosphatase 52 C-Reactive Protein 27.5 H NT-Pro-B Natriuret Pep 1970 H Total Protein 6.2 L Albumin 3.2 L Procalcitonin 0.1 Quality VTE Prophylaxis VTE prophylaxis: pharmacologic ordered Hospitalist [facility] Advance Care Plan I have confirmed that the patient's Advanced Care Plan is present, code status is documented, or surrogate decision maker is listed in patient medical record.: Yes Medication Reconciliation I have utilized all available resources to obtain, update and review the patients current medications (includes all prescriptions, OTC, herbals, cannabis, and nutritional supplements).: Yes
[2025-06-28] MEDS: BUDESONIDE RESPULE NEB 0.5 MG/2 ML AMP INHALATION (08:10)
[2025-06-28] MEDS: DULoxetine HCL 60 MG CAPSULE.DR PO (09:02)
[2025-06-28] MEDS: FUROSEMIDE 40 MG TABLET PO ×2 (09:02→17:18)
[2025-06-28] MEDS: LOSARTAN POTASSIUM 25 MG TABLET PO ×2 (09:02→17:17)
[2025-06-28] MEDS: CHOLECALCIFEROL (VITAMIN D3) 25 MCG (1,000 UNITS) TABLET 50 MCG PO (09:03)
[2025-06-28] MEDS: guaiFENesin 12 HR 600 MG TABCR 1200 MG PO ×2 (09:03→20:24)
[2025-06-28] MEDS: METOPROLOL TARTRATE 50 MG TAB PO ×2 (09:03→20:23)
--- NOTE | 2025-06-28 10:46 | PM.PNPUL ---
Progress Note: A&P Assessment and Plan (1) Abnormal PFT: Code(s): R94.2 - Abnormal results of pulmonary function studies Status: Acute Assessment and Plan: PFTs on 12/12/2024 demonstrate Preserved Ratio Impaired Spirometry (PRISm) with a normal FVC. she has a 5 pack year tobacco history and is currently smoking [address] scan of the chest shows no significant bullous emphysema. She has no bronchodilator response. The plan in the Pulmonary Clinic was to give her therapeutic trial of bronchodilators to see if this gave her clinical benefit. PFT showed PRISm which indicates early airflow obstruction. People with PRISm may have increased respiratory symptoms despite not meeting formal criteria for COPD. This may progress to a restrictive or obstructive process and can be associated with increased cardiovascular and all cause mortality in some studies. 06/24/2025: Patient tells me she has improved. She has 50% back to her normal. Her cough is essentially resolved. She denies phlegm or hemoptysis. She has no wheezing. When I enter the room she was on Airvo 40 L, 66% FiO2 with saturations 96%. The placed her on 15 L nasal cannula and sequentially decreased her to 10 L nasal cannula saturations 93%. Clinically she had no change when I switched her to nasal cannula oxygen. White blood cell count 18.1, creatinine 1.01. Procalcitonin unchanged from 0.1 on 06/23/2025 20.1 today. CRP today 13.0. BNP has improved from 3630 on 06/22/2025 to 2770 today. she has been diuresed with Lasix 40 IV b.i.d.. Yesterday she was positive 379 mL. Cumulative she is positive 2.7 L since admission. Her heart rate was AFib 130-140 and I have discontinue levalbuterol. ABG on 10 L nasal cannula 7.37/45/54. There is no evidence of hypercarbic respiratory failure. Plan: Patient currently has no wheezing and given her uncontrolled atrial fibrillation with RVR, I will discontinue levalbuterol. I will initiate ipratropium nebulizers q.4 hours and increase budesonide nebulizer 0.5 mg b.i.d. In case she has reactive airways disease. Given major concern is for bronchopneumonia I will discontinue prednisone today. She has received 3 days of systemic steroids. 06/25/2025: Patient said she did well yesterday and slept well through the night. This morning she had gotten up to the chair and her heart rate increased to 170 and she had worsening shortness of breath. She denies any current cough, phlegm or hemoptysis. Currently she is on 10 L nasal cannula with saturation 96%. Her heart rate is 150-175 irregularly irregular. White blood cell count 16.2, creatinine 1.03 yesterday she was -500 mL. Cumulative she is positive 2.0 L since admission. Her weight today is 90.2. Help Desk Technician has been notified regarding her AFib with RVR. Plan: Overall patient thought her breathing was doing better yesterday. Continue treatment for pneumonia, AFib RVR with fluid overload. Today her AFib with RVR is uncontrolled. She remains on 10 L with saturations 96%. I will not try to decrease the oxygen as she is having shortness of breath with her AFib RVR. Continue treatment for pneumonia, AFib RVR with fluid overload. 06/26/25: Patient was agitated and had pain through the night and is receive narcotics, BuSpar, on gabapentin, risperidone as well. The pulse morning says she is breathing worse, worse cough with no phlegm and no hemoptysis. She is lethargic and I ordered a stat ABG on 7 L nasal cannula shows 7.42/50/74. Her heart rate was 120 and she is scheduled to receive her diltiazem and metoprolol. I called the nurse back in an hour and her heart rate now is 70-80, her respiratory status has improved and she is on 4 L nasal cannula saturations 93-95%. She is afebrile. White blood cell count 11.1, creatinine 0.84. Yesterday she was -640 mL. Cumulative she is positive 1.6 L since admission. her weight today is 84.3 kg. Her BNP is worse from 2770 on 06/24/2025 to 5330. Her CRP is increased from 13 on 06/24/2025 to 18.2 today. Her chest x-ray today shows continued infiltrates and congestion with no significant change from 06/23/2025. Plan: Patient continues with anxiety and pain which complicate her cardiac and respiratory issues. When she is calm and relaxed her heart rate is 70-80 and her nasal cannula oxygen can be decreased. Currently she is relaxed with AFib 70-80 and she has decreased to 4 L nasal cannula. Continue treatment for pneumonia, AFib with RVR and fluid overload. She is given 40 of Lasix today. Goal saturation 90-94%. Wean as tolerated. 06/27/25: The patient tells me she feels better today. Overall she says her breathing is 50% back to her normal. She has no cough, phlegm, hemoptysis. She did not feel any fever. When I enter the room she was on 5 L nasal cannula saturations 95%. I decreased her to 3 L nasal cannula her saturations were 89%. I placed her back on 4 L nasal cannula saturations 92%. Patient had a fever last night at 8:00 p.m. a 37.9. White blood cell count 10.7, creatinine 0.87. Plan: patient's breathing has improved. Requiring 4 L oxygen. continue ipratropium q.4 hours and budesonide q.12 hours. Continue guaifenesin 1200 p.o. b.i.d.. continue treatment for pneumonia, AFib with RVR and fluid overload. anxiety and agitation improved with psychiatry recommendations of: duloxetine 60 mg daily instead of b.i.d., risperidone 1 mg b.i.d. not t.i.d., reduce gabapentin from 800 mg q.i.d. to 300-400 mg t.i.d., discontinue hydroxyzine, continue lorazepam 0.5 mg p.o./SL q.6-8hrs, and discontinue buspirone. 06/28/25: Patient tells me she continues to improve. She is more awake and alert and communicative today. Overall she says her breathing is at her normal. She denies shortness of breath at rest. She has not been out of bed yet. She has no dyspnea on exertion with physical therapy doing exercises in the bed. Her cough is 90% back to her normal with no phlegm and no hemoptysis. Patient is on 3 L nasal cannula saturation 94%. She is afebrile for 30 hours. White blood cell count 10.9, creatinine 0.97. BNP has improved from 3450 on 06/27/2025 to 1970 today. Chest x-ray shows improved aeration left base with diffuse interstitial alveolar infiltrate on the left. Weight is 82.2. In's and out's are not recorded. Plan: Breathing has improved. Requiring 3 L oxygen. No wheezing today. Will discontinue ipratropium nebulizers. AFib is better controlled and will place the patient on Anoro Ellipta for therapeutic trial. Continue guaifenesin 1200 p.o. b.i.d.. Continue treatment for pneumonia, AFib in fluid overload. More awake and alert today. duloxetine 60 mg daily instead of b.i.d., risperidone 0.5 q.day and 1 mg p.o. HS., reduce gabapentin from 400 mg q.[address] Foster, will follow with you. (2) Pneumonia: Qualifiers: Laterality: bilateral Lung location: unspecified part of lung Pneumonia type: due to unspecified organism Qualified Code(s): J18.9 - Pneumonia, unspecified organism Code(s): J18.9 - Pneumonia, unspecified organism Status: Acute Assessment and Plan: Patient presents with worsening respiratory symptoms, no leukocytosis, afebrile, COVID influenza RSV RT PCR assay negative, MRSA swab negative, chest x-ray with small effusions and congestion and a CT scan with bilateral infiltrates. CT scan of the chest 06/23/2025 compared to 05/06/2025 shows new bilateral upper lobe infiltrates right greater than left small medial segment of the right middle lobe infiltrate lingular infiltrates with very small left pleural effusion. These ground-glass infiltrates are new since 05/06/2025 there is no evidence of chronic interstitial lung disease, bullous emphysema, nodules or masses. ceftriaxone x1 dose 06/22 Plan: I will discontinue vancomycin. I am no evidence for anaerobic lung infection will discontinue metronidazole. Will continue levofloxacin 750 mg Q 48 hours and doxycycline 100 q.12. I will send a repeat COVID influenza RSV RT PCR assay. I will send respiratory pathogen panel, urine for Legionella antigen, urine for pneumococcal antigen and serum for mycoplasma IgM. COVID, influenza, RSV RT PCR assay negative 06/22 and 06/24. Respiratory pathogen panel, urine for Legionella antigen, urine for pneumococcal antigen and serum mycoplasma IgM pending 06/25/2025: Patient was improving 3 yesterday. Afebrile, White blood cell count 16.2, she has no cough, phlegm or hemoptysis. Plan: Continue treatment for pneumonia with doxycycline started 06/22/2025, day 4 and l levofloxacin started 06/23/2025. Status post ceftriaxone x1 dose on 06/22/2025. Status post vancomycin 1 dose on 06/23/2025. Status post Flagyl 06/23 through 06/25 AFib RVR with fluid overload, 06/26/25: No progression of her chest x-ray, leukocytosis is improving, afebrile, oxygenation is improving. Plan: Continue doxycycline, day 5 and levofloxacin day 3. 06/27/25: Patient had a fever last night with improvement in her respiratory symptoms. Improvement in her leukocytosis, stable oxygenation. She denies worsening phlegm or shortness of breath. CRP increased from 18.2 on 06/26/2025 to 27.5. Plan: Patient has completed 5 days of doxycycline. Currently on day 4 of Levaquin. Will follow patient's fever curve. At this time do not feel the fevers are related to a pulmonary infectio. 06/28/25: patient has been afebrile for 30 hours. White blood cell count 10.9, respiratory status is improving. Oxygenation is improving now on 3 L. Chest x-ray shows improved aeration left base with diffuse interstitial alveolar infiltrate on the left. Respiratory pathogen panel negative, serum mycoplasma IgM negative. Urine for Legionella and urine for pneumococcal pending. plan: Patient is on day 6 of levofloxacin 750 mg IV q.day. Chest x-ray better aerated at the left base. She may have a layering pleural effusion. Will continue levofloxacin. (3) Acute exacerbation of CHF (congestive heart failure): Qualifiers: Heart failure type: diastolic Qualified Code(s): I50.33 - Acute on chronic diastolic (congestive) heart failure Code(s): I50.9 - Heart failure, unspecified Status: Acute Assessment and Plan: Patient with fluid overload and AFib with RVR. 06/24/25: BNP has improved from 3630 on 06/22/2025 to 2770 today. she has been diuresed with Lasix 40 IV b.i.d.. Yesterday she was positive 379 mL. Cumulative she is positive 2.7 L since admission. Her heart rate was AFib 130-14o Plan: Management per deployment technician and hospitalist teams. Recommended as aggressive diuresis as tolerated by patient's cardiac and renal systems. I have discontinue levalbuterol. Patient has been switched to 40 mg p.o. q.day start time 5:00 p.m.. 06/25/25: This morning she had gotten up to the chair and her heart rate increased to 170 and she had worsening shortness of breath. creatinine 1.03 yesterday she was -500 mL. Cumulative she is positive 2.0 L since admission. Her weight today is 90.2. Help Desk Technician has been notified regarding her AFib with RVR. Plan: Management per deployment technician and hospitalist team. Currently on Lasix 40 q.day. 06/26/25: yesterday she was -640 mL. Cumulative she is positive 1.6 L since admission. her weight today is 84.3 kg. Her BNP is worse from 2770 on 06/24/2025 to 5330. Plan: Management per deployment technician and hospitalist teams. Consider higher doses of Lasix. 06/27/25: BNP has improved from 5330 on 06/26/2025 to 3450 today. Yesterday she was positive 260 mL, . Cumulative she is positive 1.9 L since admission. Her weight today is 84.3 kg. heart rate is better controlled today with a flutter at 100-110. Plan: Management per deployment technician and hospitalist team. Currently on Lasix 40 p.o. b.i.d.. 06/28/25: BNP has improved from 3450 on 06/27/2025 to 1970 today. Chest x-ray shows improved aeration left base with diffuse interstitial alveolar infiltrate on the left. Weight is 82.2. In's and out's are not recorded. Plan: AFib better controlled. Continue Lasix 40 p.o. b.i.d. Management per Cardiology and hospitalist teams. Subjective Date/time seen: 06/28/25 10:46 Interval history: 06/24/2025: This is a new pulmonary consult for respiratory failure. 74-year-old with a history of CHF, DM, HTN, GERD, HLD, COPD patient is followed in the Pulmonary Clinic in last seen on 04/02/2025: This is note and plan. 3 month follow-up regarding coughing. Hx: CHF, DM, HTN, GERD, HLD, COPD. Sees [facility] cardiology. She was hospitalized last month 02/22/25 from 02/25 regarding afib RVR, NAT, CHF, and pneumonia. CXR showed confluent opacity in the lower 3rd of the left hemithorax which is a slightly increased in size, small patchy opacities in the right lower lung. CTA of the chest showed a few small ground-glass and patchy opacities in both lungs more prominent in the lower lungs, small left pleural effusion, tiny right pleural effusion, several low-density indeterminate lesions scattered throughout the liver, indeterminate 2.3 cm left adrenal nodule. She was tx with abx for PNA, Cardizem gtt for afib, fluid bolus for NAT, and Lasix for CHF. She went to the ER 3 days after discharge as the metoprolol dose was increased prior and she was having lightheadedness, heart racing, and low BP. Chest x-ray showing likely a small pleural effusion on the left. Recommended follow-up with cardiology. Prior to her hospitalization, she called our office c/o dyspnea, dry coughing, and wheezing. CXR showed Bibasilar infiltrates may represent atelectasis or pneumonia. No significant change. Small pleural effusions. She was tx with doxycycline on 02/12. Today she reports improvement in symptoms since discharge. HAMMER is better and she is not coughing as much as she previously did. Tessalon Perles seem to help. She was to be setup on nebulizer with Duonebs last visit. However she reports she never got it. She has been using her rescue inhaler 2x/day which she feels helps. She reports unchanged symptoms of wheezing at times. Otherwise denies chest pains/tightness, fever, hemoptysis, or nighttime breathing issues. Current smoker 6 cigs/day. Smoker for 10 year 0.5ppd. Denies family hx of lung disease. Weight 175 lb room air saturations 95% plan: PFTs with prism. . Astepro did not help her coughing. Resend an order for nebulizer with DuoNebs p.r.n.. Pleural effusions: CT scan of the chest. 05/06/2025: CT scan of the chest with a very small left pleural effusion, discoid atelectasis anterior left lower lobe and minimal right dependent atelectasis in the right lower lobe. No emphysematous changes. No nodules or masses. 06/17/2025: Patient presented to the emergency room with dyspnea on exertion for 2-3 days, wheezing, room air saturations 95%. Chest x-ray with no acute abnormalities. Patient was diagnosed with bronchitis and treated with prednisone x5 days. Patient took this prednisone as prescribed but 1 day after finishing the prednisone she had worsening shortness of breath. 06/22/2025 patient presented to the emergency department with worsening shortness of breath, cough, wheezes the felt like worsening COPD exacerbation. Blood pressure 110/58, heart rate 81, respirations 22, room air saturations 86%. Patient was placed on 3 L nasal cannula saturations were 98%. She had diffuse wheezes. White blood cell count was 10.9, eosinophils 0.6%. BNP 3630. Creatinine 1.09. COVID influenza RSV RT PCR assay negative. Chest x-ray showed small effusions with congestion. She was given 2 L IV fluid, Solu-Medrol, Lasix 20 IV, ceftriaxone and doxycycline. MRSA swab was negative. 06/23/2025: Patient developed AFib RVR requiring IV metoprolol and IV diltiazem. She had worsening oxygenation requiring Airvo at 8:00 p.m. 45 L, 80% FiO2 with saturations 92%. Antibiotics were changed to vancomycin and Levaquin. Her MRSA swab was negative and vancomycin was discontinued. 06/24/2025: Patient tells me she has improved. She has 50% back to her normal. Her cough is essentially resolved. She denies phlegm or hemoptysis. She has no wheezing. When I enter the room she was on Airvo 40 L, 66% FiO2 with saturations 96%. The placed her on 15 L nasal cannula and sequentially decreased her to 10 L nasal cannula saturations 93%. Clinically she had no change when I switched her to nasal cannula oxygen. White blood cell count 18.1, creatinine 1.01. Procalcitonin unchanged from 0.1 on 06/23/2025 20.1 today. CRP today 13.0. BNP has improved from 3630 on 06/22/2025 to 2770 today. she has been diuresed with Lasix 40 IV b.i.d.. Yesterday she was positive 379 mL. Cumulative she is positive 2.7 L since admission. Her heart rate was AFib 130-140 and I have discontinue levalbuterol. 06/25/2025: Patient said she did well yesterday and slept well through the night. This morning she had gotten up to the chair and her heart rate increased to 170 and she had worsening shortness of breath. She denies any current cough, phlegm or hemoptysis. Currently she is on 10 L nasal cannula with saturation 96%. Her heart rate is 150-175 irregularly irregular. White blood cell count 16.2, creatinine 1.03 yesterday she was -500 mL. Cumulative she is positive 2.0 L since admission. Her weight today is 90.2. Help Desk Technician has been notified regarding her AFib with RVR. 06/26/25: Patient was agitated and had pain through the night and is receive narcotics, BuSpar, on gabapentin, risperidone as well. The pulse morning says she is breathing worse, worse cough with no phlegm and no hemoptysis. She is lethargic and I ordered a stat ABG on 7 L nasal cannula shows 7.42/50/74. Her heart rate was 120 and she is scheduled to receive her diltiazem and metoprolol. I called the nurse back in an hour and her heart rate now is 70-80, her respiratory status has improved and she is on 4 L nasal cannula saturations 93-95%. She is afebrile. White blood cell count 11.1, creatinine 0.84. Yesterday she was -640 mL. Cumulative she is positive 1.6 L since admission. her weight today is 84.3 kg. Her BNP is worse from 2770 on 06/24/2025 to 5330. Her CRP is increased from 13 on 06/24/2025 to 18.2 today. Her chest x-ray today shows continued infiltrates and congestion with no significant change from 06/23/2025. 06/27/25: The patient tells me she feels better today. Overall she says her breathing is 50% back to her normal. She has no cough, phlegm, hemoptysis. She did not feel any fever. When I enter the room she was on 5 L nasal cannula saturations 95%. I decreased her to 3 L nasal cannula her saturations were 89%. I placed her back on 4 L nasal cannula saturations 92%. Patient had a fever last night at 8:00 p.m. a 37.9. White blood cell count 10.7, creatinine 0.87. BNP has improved from 5330 on 06/26/2025 to 3450 today. Yesterday she was positive 260 mL, . Cumulative she is positive 1.9 L since admission. Her weight today is 84.3 kg. 06/28/25: Patient tells me she continues to improve. She is more awake and alert and communicative today. Overall she says her breathing is at her normal. She denies shortness of breath at rest. She has not been out of bed yet. She has no dyspnea on exertion with physical therapy doing exercises in the bed. Her cough is 90% back to her normal with no phlegm and no hemoptysis. Patient is on 3 L nasal cannula saturation 94%. She is afebrile for 30 hours. White blood cell count 10.9, creatinine 0.97. BNP has improved from 3450 on 06/27/2025 to 1970 today. Chest x-ray shows improved aeration left base with diffuse interstitial alveolar infiltrate on the left. Weight is 82.2. In's and out's are not recorded. DATA: 06/23/25: EXAMINATION: CT diagnostic chest wo con, 06/23/2025 18:00 FLOOR TECHNICIAN HISTORY: Pulm edema vs pneumnia COMPARISON: No comparisons available. FINDINGS: No significant coronary calcification is present ([id number]) LUNGS: Trace left pleural effusion. Trace right pleural effusion. No tracheomalacia. No bronchiectasis. Minimal emphysematous changes. Mild pulmonary fibrotic changes. There are bilateral areas of groundglass attenuation with infiltrates in the upper lobes bilaterally, the left lower lobe and the right lower lobe as well as the right middle lobe. Scattered micronodules are noted which are probably infectious. HEART AND PERICARDIUM: Mild cardiomegaly. Trace pericardial effusion. AORTA: Normal caliber aorta. ADENOPATHY/MEDIASTINUM: None. LIMITED VIEWS OF THE ABDOMEN: Complex appearing liver cysts the largest right lobe liver 1 x 1 cm. Right kidney renal calculi noted the largest mid pole 3 mm with partially imaged probable renal cyst 2 x 2 cm. Left kidney renal calculi the largest mid pole 2 mm. There is thickening of the adrenal glands bilaterally with left adrenal nodule 1 x 1 cm probable benign adrenal adenoma. Small hiatal hernia noted. OSSEOUS STRUCTURES: No acute osseous abnormality.No suspicious lesions. OVERLYING SOFT TISSUES: Unremarkable. THYROID: The thyroid is unremarkable. IMPRESSION: Severe bilateral bronchopneumonia. Follow-up recommended to assess resolution. 06/22/25: Echo Summary 1. Left ventricular systolic function is hyperdynamic, estimated at >70. 2. There is mildly increased left ventricular wall thickness. 3. The left ventricular diastolic function is abnormal. 4. Left atrial chamber dimension is mildly enlarged. 5. There is small pericardial effusion. 6. atrial fibrillation with RVR. Right Ventricle Right ventricular chamber dimension is normal. Right ventricular systolic function is normal. Left Atria Left atrial chamber dimension is mildly enlarged. Right Atria Right atrial chamber dimension is normal. No tricuspid regurg and no PASP calculated 05/06/25: EXAMINATION: CT diagnostic chest wo con INDICATION: J90 - Pleural effusion, not elsewhere classified COMPARISON: CT dated 02/22/2025 FINDINGS: Tiny left pleural effusion. Discoid atelectasis in the left upper lobe and lingula along the major fissure. Compressive atelectasis in the anterior basilar left lower lobe along side the enlarged heart discoid and basilar atelectasis in the right lower lobe and atelectasis at the posterior medial aspect of the right middle lobe. No pulmonary edema, pneumonia or right-sided pleural effusion. Atherosclerotic coronary artery calcification is. No pericardial effusion. Thoracic aorta is normal in caliber. No pathologically enlarged thoracic lymphadenopathy. Multiple scattered small bilateral nonobstructing renal stones the largest in the right kidney measuring 4-5 mm. 3.3 cm right renal cyst. There are also several smaller cysts in the liver measuring up to 1.4 cm. 1.5 cm low-attenuation left adrenal adenoma. Mild thoracic dextroscoliosis with moderate to severe spondylosis. T10 hemangioma. C5-C7 anterior spinal fusion with anterior plate and screw fixation.. IMPRESSION: 1. Very small left pleural effusion and scattered atelectasis in the left mid and bilateral lower lung zones. 2. Cardiomegaly. 3. Bilateral nonobstructing nephrolithiasis. 03/30/25: EXAMINATION: MR abdomen wo/w con INDICATION: Liver disease, unspecified. TECHNIQUE: Magnetic resonance imaging (MRI) of the abdomen was performed without and with 15 mL MultiHance intravenous contrast. COMPARISON: Abdomen MRI 01/18/2020 FINDINGS: Cardiomegaly is noted. No pericardial effusion. There is trace pleural effusions. There is diffuse hepatic steatosis. There are cysts in the liver measuring up to 11 mm. The gallbladder is absent. The common duct measures 12 mm in diameter, likely not clinically significant given the normal liver function tests on 03/27/2025. The spleen, pancreas, and right adrenal gland are normal. There is chronic thickening of left adrenal gland, likely benign. There are cysts in the kidneys measuring up to 3.8 cm on the right. There are no dilated loops of bowel. There are no pathologically enlarged lymph nodes. There is no free intraperitoneal fluid. IMPRESSION: 1. Diffuse hepatic steatosis. 02/22/2025: EXAMINATION: CTA chest PE protocol INDICATION: Palpitations. Atrial fibrillation. COMPARISON: 09/02/2017 FINDINGS: Cervical hardware. There is a mildly enlarged 1.4 cm subcarinal lymph node similar to the study from 09/02/2017. There are a few additional nonenlarged mediastinal and hilar lymph nodes. Several new low-density lesions scattered throughout the liver, the largest measures 1.5 cm in the right lobe of the liver. A Liver mass MRI is recommended. There is a too small to characterize low-attenuation lesion in the right kidney. Indeterminate 2.3 cm left adrenal nodule. An adrenal mass MRI is recommended. Heart is moderately enlarged. There are coronary artery calcifications. Thoracic aorta is not aneurysmal. Mild to moderate discredit disease in the thoracic aorta. Small left-sided pleural effusion. Bones appear osteopenic. Multilevel degenerative change in the visualized spine. Visualized tracheobronchial tree is patent. Tiny right-sided pleural effusion. Mild biapical scarring. There are a few small groundglass and patchy opacities in both lungs most prominent in the lower lobes. IMPRESSION: 1. There are a few small groundglass and patchy opacities in both lungs most prominent in the lower lobes. Differential includes but is not limited to atelectasis/scarring or infiltrates. 2. Small left-sided pleural effusion. Tiny right-sided pleural effusion. 3. Several new low-density indeterminate lesions scattered throughout the liver, the largest measures 1.5 cm in the right lobe of the liver. A Liver mass MRI is recommended. 4. Indeterminate 2.3 cm left adrenal nodule. An adrenal mass MRI is recommended. CXR 02/28/25 - Confluent opacity in the lower third of the left hemithorax. Differential includes a combination of pleural fluid with adjacent atelectasis and/or consolidation. An underlying mass is possible. Recommend follow-up to resolution. Consider a chest CT. Small patchy opacities in the right mid and lower lung. Differential includes metastasis/scarring or infiltrates. 12/12/2024: This is a pulmonary function test with pre and post-bronchodilator spirometry, plethysmography and diffusing capacity. The test was performed and results interpreted in accordance with the 2019 and 2005 ATS/ERS Task Force guidelines respectively using the Global Lung Function Initiative-2012 reference equations. Patient demonstrated good effort and cooperation. Reproducibility criteria were met. The quality of the pre bronchodilator spirometry maneuver was Grade A and post bronchodilator spirometry maneuver was Grade A. Findings: Spirometry: The contour the inspiratory and expiratory flow tracing are normal. The pre bronchodilator FVC is 1.90 L, 76% predicted. The pre bronchodilator FEV1 is 1.34 L, 69% predicted. The pre bronchodilator FEV1: FVC ratio 70%. The post bronchodilator FVC is 1.89 L, representing a 1% decrease. The post bronchodilator FEV1 is 1.37 L, representing a 3% increase. The post bronchodilator FEV1: FVC ratio is 73%. Plethysmography: The total lung capacity is 4.01 L, 87% predicted. The functional residual capacity is 2.42 L, 92% predicted. The residual volume is 2.12 L, 102% predicted. Diffusing capacity: The diffusing capacity unadjusted for hemoglobin and carboxyhemoglobin is 10.0, 53% predicted. The diffusing capacity adjusted for alveolar volume is 3.03, 69% predicted. Impression: The FEV1 is less than 80% predicted and the FEV1: FVC ratio is greater than the lower limit of normal consistent with Preserved Ratio Impaired Spirometry (PRISm) with a normal FVC. The spirometry is normal without evidence of an obstructive abnormality. There is no significant improvement after inhaling a single dose of albuterol. The lung volumes are normal. The diffusing capacity unadjusted for hemoglobin and carboxyhemoglobin is moderately decreased and remains mildly decreased when adjusted for alveolar volume. There are no prior studies for comparison 12/12/2024: This is a 6 minute walk test. The test was performed and interpreted in accordance with the 2014 ERS/ATS task force guidelines. Of note, the last 2 minutes the patient used to wheeled walker due to back pain. Findings: The patient's resting room air oxygen saturation measured by pulse oximetry was 95%, the heart rate was 90 bpm, and the modified Thanh dyspnea score was 0. Patient ambulated for 213 meters and oxygen saturation remained 91 to 94%. At the end of the study the heart rate was 112 bpm and the modified Thanh dyspnea score was 0. The patient did not qualify for supplemental oxygen at rest or with ambulation. CXR 09/29/24 - Small left pleural effusion is present. Possible minimal right pleural effusion. Echo 10/23/22 - EF 55-60%, left ventricular diastolic function is abnormal, mild pulmHTN RVSP 46mmHg. 10/22/2022: EXAMINATION: CTA chest PE protocol INDICATION: Chest pain, shortness of breath and elevated d-dimer. COMPARISON: CT dated 09/02/2017 and chest x-ray dated 11/08/2022. FINDINGS: Study is technically limited for evaluation of right upper lobe pulmonary arteries due to motion and contrast bolus timing. No large central pulmonary embolism. Cardiomegaly. Small pleural effusions. There is mediastinal lymphadenopathy, likely reactive. Patchy groundglass opacities involving the upper lobes and right lower lobe. There is dependent atelectasis. No endobronchial lesions. No pneumothorax. No evidence for aortic aneurysm or dissection. There are multiple low-density lesions in the liver, largest in the right hepatic lobe showing 1.5 cm, compatible with a cyst. There is nodular thickening of the adrenal glands, likely secondary to benign adenomas. Moderate thoracic spondylosis. Surgical fusion changes present in the lower cervical spine. 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 IMPRESSION: 1. Patchy groundglass opacities, most confluent in the right upper lobe, consistent with pneumonia. 2: No large central pulmonary embolism. 3: Mediastinal lymphadenopathy, likely reactive. 4: Small pleural effusions. Review of Systems Constitutional: Constitutional: Reports no additional constitutional complaints Eyes: Eyes: Reports no additional eye complaints ENT: Reports system reviewed and no additional complaints, except as documented Cardiovascular: Cardiovascular: Reports no additional cardiovascular complaints Respiratory: Respiratory: Reports no additional respiratory complaints Gastrointestinal: Gastrointestinal: Reports no additional gastrointestinal complaints Musculoskeletal: Musculoskeletal: Reports no additional musculoskeletal complaints Neurologic: Reports system reviewed and no additional complaints, except as documented Psychiatric: Psychiatric: Reports no additional psychiatric complaints Endocrine: Endocrine: Reports no additional endocrine complaints Hematologic/Lymphatic: Hematologic/Lymphatic: Reports no additional hematologic/lymphatic complaints Allergic/Immunologic: Allergic/Immunologic: Reports no additional allergic/immunologic complaints Exam Const: General: cooperative, healthy appearing and comfortable Orientation/consciousness: oriented to person, oriented to place and oriented to time HENMT: Head: normal to inspection Ears: hearing grossly normal bilaterally Eyes: General: appearance normal, both eyes and all related structures Neck: Neck: normal visual inspection Chest: Chest palpation & inspection: normal inspection of the chest Resp: Effort & Inspection: normal respiratory effort and able to speak in complete sentences Auscultation: no crackles, no rales, no rhonchi, no wheezes and lung sounds not diminished Cardio: Jugular venous distension: no JVD GI: Inspection: normal to inspection Skin: General skin exam: normal color Neuro: General: oriented to person, oriented to place and oriented to time Extrem: General: normal to inspection Psych: Appearance: grossly normal Objective Data Vital Signs Vital Signs: Vital Signs - 24 hr 06/27/25 12:00 06/27/25 12:00 06/27/25 12:00 Temperature 37.3 C Pulse Rate 104 H 105 H Respiratory Rate 24 H Blood Pressure 109/58 L Pulse Oximetry 96 94 Oxygen Delivery High Flow Therapy with Na Oxygen Flow Rate 3 06/27/25 12:20 06/27/25 12:20 06/27/25 12:31 Temperature Pulse Rate 99 99 111 H Respiratory Rate 20 20 20 Blood Pressure Pulse Oximetry 93 Oxygen Delivery High Flow Nasal Cannula Oxygen Flow Rate 3 06/27/25 13:47 06/27/25 14:00 06/27/25 16:00 Temperature 37.6 C Pulse Rate 93 111 H Respiratory Rate 26 H Blood Pressure 150/80 H Pulse Oximetry 91 Oxygen Delivery High Flow Nasal Cannula Oxygen Flow Rate 3 06/27/25 16:00 06/27/25 16:00 06/27/25 16:06 Temperature Pulse Rate 105 H 114 H Respiratory Rate 20 Blood Pressure Pulse Oximetry 96 92 Oxygen Delivery Nasal Cannula High Flow Nasal Cannula Oxygen Flow Rate 3 3 06/27/25 16:06 06/27/25 16:13 06/27/25 18:00 Temperature Pulse Rate 114 H 117 H 113 H Respiratory Rate 20 20 Blood Pressure Pulse Oximetry Oxygen Delivery Oxygen Flow Rate 06/27/25 20:00 06/27/25 20:00 06/27/25 20:00 Temperature 37.0 C Pulse Rate 94 102 H Respiratory Rate 26 H Blood Pressure 96/29 L Pulse Oximetry 94 93 Oxygen Delivery High Flow Nasal Cannula Oxygen Flow Rate 3 06/27/25 20:08 06/27/25 20:20 06/27/25 20:20 Temperature Pulse Rate 98 93 93 Respiratory Rate 18 18 Blood Pressure Pulse Oximetry 93 Oxygen Delivery High Flow Nasal Cannula Oxygen Flow Rate 3 06/27/25 20:32 06/27/25 22:00 06/27/25 23:11 Temperature 36.6 C Pulse Rate 78 80 Respiratory Rate 16 26 H Blood Pressure 80/50 L Pulse Oximetry 94 Oxygen Delivery Oxygen Flow Rate 06/27/25 23:58 06/27/25 23:58 06/28/25 01:15 Temperature Pulse Rate 79 76 Respiratory Rate 14 Blood Pressure Pulse Oximetry 94 Oxygen Delivery High Flow Nasal Cannula Oxygen Flow Rate 3 06/28/25 02:00 06/28/25 04:00 06/28/25 04:00 Temperature 36.8 C Pulse Rate 86 80 Respiratory Rate 22 H Blood Pressure 112/58 L Pulse Oximetry 92 92 Oxygen Delivery High Flow Nasal Cannula Oxygen Flow Rate 3 06/28/25 04:45 06/28/25 04:54 06/28/25 06:00 Temperature Pulse Rate 112 H 105 H 110 H Respiratory Rate 20 20 Blood Pressure Pulse Oximetry Oxygen Delivery Oxygen Flow Rate 06/28/25 07:51 06/28/25 08:00 06/28/25 08:00 Temperature 37.2 C Pulse Rate 102 H 100 Respiratory Rate 22 H Blood Pressure 107/55 L Pulse Oximetry 94 94 Oxygen Delivery Nasal Cannula Oxygen Flow Rate 3 06/28/25 08:12 06/28/25 08:12 06/28/25 08:21 Temperature Pulse Rate 104 H 104 H 105 H Respiratory Rate 20 20 20 Blood Pressure Pulse Oximetry 94 Oxygen Delivery Nasal Cannula Oxygen Flow Rate 3 06/28/25 09:03 06/28/25 10:00 Temperature Pulse Rate 123 H 77 Respiratory Rate Blood Pressure Pulse Oximetry Oxygen Delivery Oxygen Flow Rate Intake/Output Intake/Output: Intake & Output 06/25/25 06/26/25 06/27/25 06/28/25 23:59 23:59 23:59 23:59 Intake Total 910 460 610 270 Output Total 1550 200 Balance -640 260 610 270 Meds/Results Medications: Active Medications Generic Name Dose Route Start Last Admin Trade Name Freq PRN Reason Stop Dose Admin Acetaminophen 650 mg 06/22/25 14:49 06/27/25 15:53 Acetaminophen 325 Mg Tablet PO 650 mg Q4H PRN Administration Mild Pain (1-3) or Fever Hydrocodone Bitart/Acetaminophen 1 tab 06/23/25 08:08 06/27/25 21:41 Hydrocodone/Acetaminophen (*Crx) 5-325 Mg Tablet PO 1 tab Q8H PRN Administration Pain Benzonatate 100 mg 06/22/25 16:14 06/26/25 07:56 Benzonatate 100 Mg Capsule PO 100 mg TID PRN Administration Cough Budesonide 0.5 mg 06/24/25 20:00 06/28/25 08:10 Budesonide Respule Neb 0.5 Mg/2 Ml Amp INHALATION 0.5 mg Q12HRT ROSE MARY Administration Dextrose 12.5 gm 06/22/25 15:39 Dextrose 50% 25 Gm/50 Ml Syringe IV PUSH PRN PRN Hypoglycemia Protocol Diltiazem HCl 90 mg 06/26/25 18:00 06/28/25 05:07 Diltiazem Hcl 60 Mg Tablet PO 90 mg Q6HR ROSE MARY Administration Duloxetine HCl 60 mg 06/28/25 09:00 06/28/25 09:02 Duloxetine Hcl 60 Mg Capsule.Dr PO 60 mg DAILY ROSE MARY Administration Furosemide 40 mg 06/26/25 17:00 06/28/25 09:02 Furosemide 40 Mg Tablet PO 40 mg BIDWM ROSE MARY Administration Gabapentin 400 mg 06/27/25 06:00 06/28/25 05:07 Gabapentin 400 Mg Capsule PO 400 mg Q8HR ROSE MARY Administration Glucagon 1 mg 06/22/25 15:39 Glucagon For Inj 1 Mg Vial IM PRN PRN Hypoglycemia Protocol Glucose 15 gm 06/22/25 15:39 Glucose Oral Gel 15 Gm Of Glucse In 37.5 Gm Tube PO PRN PRN Hypoglycemia Protocol Guaifenesin 1,200 mg 06/24/25 21:00 06/28/25 09:03 Guaifenesin 12 Hr 600 Mg Tabcr PO 1,200 mg Q12HR ROSE MARY Administration Dextrose 1,000 mls @ 100 mls/hr 06/22/25 15:39 Dextrose 5% 1,000 Ml IVPB PRN PRN Hypoglycemia Protocol Levofloxacin/Dextrose 750 mg in 150 mls @ 100 mls/hr 06/26/25 15:00 06/28/25 07:39 Levaquin 750 Mg/D5w 150 Ml IVPB Infused DAILY@1500 ROSE MARY Infusion Ipratropium [place] 0.5 mg 06/24/25 12:00 06/28/25 08:10 Ipratropium Br 0.02% Inh Soln 0.5 Mg/2.5 Ml Vial INHALATION 0.5 mg Q4HRT ROSE MARY Administration Lorazepam 0.5 mg 06/27/25 11:35 06/28/25 04:41 Lorazepam (*Crx) 0.5 Mg Tablet PO 0.5 mg Q6H PRN Administration Anxiety Losartan Potassium 25 mg 06/22/25 17:00 06/28/25 09:02 Losartan Potassium 25 Mg Tablet PO 25 mg BID ROSE MARY Administration Metoprolol Tartrate 50 mg 06/25/25 09:00 06/28/25 09:03 Metoprolol Tartrate 50 Mg Tab PO 50 mg Q12HR ROSE MARY Administration Nitroglycerin 0.4 mg 06/22/25 15:39 Nitroglycerin Sl 0.4 Mg Tablet SUBLINGUAL Q5MIN PRN Chest Pain Risperidone 1 mg 06/27/25 21:00 06/27/25 20:08 Risperidone 1 Mg Tablet PO 1 mg HS ROSE MARY Administration Risperidone 0.5 mg 06/28/25 09:00 06/28/25 09:03 Risperidone 0.25 Mg Tablet PO 0.5 mg DAILY ROSE MARY Administration Rivaroxaban 20 mg 06/22/25 17:00 06/27/25 17:56 Rivaroxaban 20 Mg Tablet PO 20 mg DAILY@1700 ROSE MARY Administration Simvastatin 20 mg 06/22/25 21:00 06/27/25 20:08 Simvastatin 20 Mg Tablet PO 20 mg HS ROSE MARY Administration Vitamin D 50 mcg 06/23/25 09:00 06/28/25 09:03 Cholecalciferol (Vitamin D3) 25 Mcg (1,000 Units) Tablet PO 50 mcg DAILY ROSE MARY Administration Radiology Results: ITS Impressions Head CT 06/23/25 12:29 IMPRESSION: 1. No acute intracranial findings. Chest CT 06/23/25 18:21 IMPRESSION: Severe bilateral bronchopneumonia. Follow-up recommended to assess resolution. Chest X-Ray 06/28/25 07:51 IMPRESSION: 1. Improved aeration of left lung base with decreased size of effusion. Layering effusion may be present along with persisting pulmonary edema/consolidation. Labs Labs: Laboratory Results - last 24 hr 06/27/25 06/27/25 06/28/25 04:33 14:32 04:13 WBC 10.9 H RBC 3.80 L Hgb 11.1 L Hct 34.7 L MCV 91.3 MCH 29.2 MCHC 32.0 RDW 15.8 H Plt Count 256 MPV 10.4 Sodium 145 146 H Potassium 3.4 3.6 Chloride 111 H 112 H Carbon Dioxide 31 H 31 H Anion Gap 3 L 3 L BUN 28 H 29 H Creatinine 0.95 0.97 Estim Creat Clear Calc 46 46 Estimated GFR 58 L 56 L Glucose 158 H 127 H Calcium 9.5 9.3 Magnesium 1.9 Total Bilirubin 0.6 AST 22 ALT 13 Alkaline Phosphatase 52 C-Reactive Protein 27.5 H NT-Pro-B Natriuret Pep 1970 H Total Protein 6.2 L Albumin 3.2 L Procalcitonin 0.1
[2025-06-28] MEDS: POTASSIUM CHLORIDE 20 MEQ PACKET (FOR LIQUID) 40 MEQ PO (11:18)
[2025-06-28] MEDS: levoFLOXacin 750 MG/D5W 150 ML 750 MG/150 ML BAG 100 MG IVPB (17:17)
[2025-06-28] MEDS: RIVAROXABAN 20 MG TABLET PO (17:17)
[2025-06-28] MEDS: BENZONATATE 100 MG CAPSULE PO ×2 (18:41→23:55)
[2025-06-28] MEDS: SIMVASTATIN 20 MG TABLET PO (20:23)
[2025-06-29] VITALS (14 sets, daily range): BP systolic 102–118; BP diastolic 43–64; PULSE 71–122; RESP 18–20; TEMP 36.2–36.5; O2SAT 90–99
[2025-06-29 04:53] LABS: Hematocrit 37.2 % (37.0-47.0); Hemoglobin 11.6 g/dL (12.0-15.0); Mean Corpuscular HGB Conc 31.2 g/dl (32-36); Mean Corpuscular Hemoglobin 28.7 pg (26-34); Mean Corpuscular Volume 92.1 fl (80-100); Platelet Count Result 260 k/mm3 (150-375); Red Blood Count 4.04 M/mm3 (4.2-5.4); White Blood Count 12.6 K/mm3 (4.5-10.0)
[2025-06-29 05:14] LABS: Alanine Aminotransferase 16 U/L (6-35); Albumin Level 3.3 g/dL (3.5-5.1); Alkaline Phosphatase 52 U/L (38-126); Anion Gap 5 mmol/L (4-12); Aspartate Amino Transferase 24 U/L (14-36); Bilirubin,Total 0.6 mg/dL (0.2-1.3); Blood Urea Nitrogen 25 mg/dL (7-17); Calcium 9.3 mg/dL (8.4-10.2); Carbon Dioxide 29 mmol/L (22-30); Chloride 109 mmol/L (98-107); Estimated CRCL calculation 47 ml/min; Estimated Glomerular Filt Rate 60; Glucose 116 mg/dL (65-110); Potassium 3.6 mmol/L (3.4-5.0); Sodium 143 mmol/L (137-145); Total Protein 6.2 g/dL (6.3-8.2)
[2025-06-29] MEDS: GABAPENTIN 400 MG CAPSULE PO ×3 (05:33→21:25)
[2025-06-29] MEDS: UMECLIDINIUM/VILANTEROL 62.5-25 MCG ELLIPTA 1 PUFF INHALATION (08:34)
[2025-06-29] MEDS: DULoxetine HCL 60 MG CAPSULE.DR PO (08:45)
[2025-06-29] MEDS: CHOLECALCIFEROL (VITAMIN D3) 25 MCG (1,000 UNITS) TABLET 50 MCG PO (08:45)
[2025-06-29] MEDS: METOPROLOL TARTRATE 50 MG TAB PO ×2 (08:45→21:26)
[2025-06-29] MEDS: LOSARTAN POTASSIUM 25 MG TABLET PO ×2 (08:45→17:13)
[2025-06-29] MEDS: FUROSEMIDE 40 MG TABLET PO ×2 (08:46→17:13)
[2025-06-29] MEDS: guaiFENesin 12 HR 600 MG TABCR 1200 MG PO ×2 (08:46→21:23)
--- NOTE | 2025-06-29 08:48 | P.PNPL_ITS ---
Progress Note: A&P Assessment and Plan (1) Abnormal PFT: Code(s): R94.2 - Abnormal results of pulmonary function studies Status: Acute Assessment and Plan: PFTs on 12/12/2024 demonstrate Preserved Ratio Impaired Spirometry (PRISm) with a normal FVC. she has a 5 pack year tobacco history and is currently smoking [address] scan of the chest shows no significant bullous emphysema. She has no bronchodilator response. The plan in the Pulmonary Clinic was to give her therapeutic trial of bronchodilators to see if this gave her clinical benefit. PFT showed PRISm which indicates early airflow obstruction. People with PRISm may have increased respiratory symptoms despite not meeting formal criteria for COPD. This may progress to a restrictive or obstructive process and can be associated with increased cardiovascular and all cause mortality in some studies. 06/24/2025: Patient tells me she has improved. She has 50% back to her normal. Her cough is essentially resolved. She denies phlegm or hemoptysis. She has no wheezing. When I enter the room she was on Airvo 40 L, 66% FiO2 with saturations 96%. The placed her on 15 L nasal cannula and sequentially decreased her to 10 L nasal cannula saturations 93%. Clinically she had no change when I switched her to nasal cannula oxygen. White blood cell count 18.1, creatinine 1.01. Procalcitonin unchanged from 0.1 on 06/23/2025 20.1 today. CRP today 13.0. BNP has improved from 3630 on 06/22/2025 to 2770 today. she has been diuresed with Lasix 40 IV b.i.d.. Yesterday she was positive 379 mL. Cumulative she is positive 2.7 L since admission. Her heart rate was AFib 130-140 and I have discontinue levalbuterol. ABG on 10 L nasal cannula 7.37/45/54. There is no evidence of hypercarbic respiratory failure. Plan: Patient currently has no wheezing and given her uncontrolled atrial fibrillation with RVR, I will discontinue levalbuterol. I will initiate ipratropium nebulizers q.4 hours and increase budesonide nebulizer 0.5 mg b.i.d. In case she has reactive airways disease. Given major concern is for bronchopneumonia I will discontinue prednisone today. She has received 3 days of systemic steroids. 06/25/2025: Patient said she did well yesterday and slept well through the night. This morning she had gotten up to the chair and her heart rate increased to 170 and she had worsening shortness of breath. She denies any current cough, phlegm or hemoptysis. Currently she is on 10 L nasal cannula with saturation 96%. Her heart rate is 150-175 irregularly irregular. White blood cell count 1 6.2, creatinine 1.03 yesterday she was -500 mL. Cumulative she is positive 2.0 L since admission. Her weight today is 90.2. [employer] has been notified regarding her AFib with RVR. Plan: Overall patient thought her breathing was doing better yesterday. Continue treatment for pneumonia, AFib RVR with fluid overload. Today her AFib with RVR is uncontrolled. She remains on 10 L with saturations 96%. I will not try to decrease the oxygen as she is having shortness of breath with her AFib RVR. Continue treatment for pneumonia, AFib RVR with fluid overload. 06/26/25: Patient was agitated and had pain through the night and is receive narcotics, BuSpar, on gabapentin, risperidone as well. The pulse morning says she is breathing worse, worse cough with no phlegm and no hemoptysis. She is lethargic and I ordered a stat ABG on 7 L nasal cannula shows 7.42/50/74. Her heart rate was 120 and she is scheduled to receive her diltiazem and metoprolol. I called the nurse back in an hour and her heart rate now is 70- 80, her respiratory status has improved and she is on 4 L nasal cannula saturations 93-95%. She is afebrile. White blood cell count 11.1, creatinine 0.84. Yesterday she was -640 mL. Cumulative she is positive 1.6 L since admission. her weight today is 84.3 kg. Her BNP is worse from 2770 on 06/24/2025 to 5330. Her CRP is increased from 13 on 06/24/2025 to 18.2 today. Her chest x-ray today shows continued infiltrates and congestion with no significant change from 06/23/2025. Plan: Patient continues with anxiety and pain which complicate her cardiac and respiratory issues. When she is calm and relaxed her heart rate is 70-80 and her nasal cannula oxygen can be decreased. Currently she is relaxed with AFib 70-80 and she has decreased to 4 L nasal cannula. Continue treatment for pneumonia, AFib with RVR and fluid overload. She is given 40 of Lasix today. Goal saturation 90-94%. Wean as tolerated. 06/27/25: The patient tells me she feels better today. Overall she says her breathing is 50% back to her normal. She has no cough, phlegm, hemoptysis. She did not feel any fever. When I enter the room she was on 5 L nasal cannula sa turations 95%. I decreased her to 3 L nasal cannula her saturations were 89%. I placed her back on 4 L nasal cannula saturations 92%. Patient had a fever last night at 8:00 p.m. a 37.9. White blood cell count 10.7, creatinine 0.87. Plan: patient's breathing has improved. Requiring 4 L oxygen. continue ipratropium q.4 hours and budesonide q.12 hours. Continue guaifenesin 1200 p.o. b.i.d.. continue treatment for pneumonia, AFib with RVR and fluid overload. anxiety and agitation improved with psychiatry recommendations of: duloxetine 60 mg daily instead of b.i.d., risperidone 1 mg b.i.d. not t.i.d., reduce gabapentin from 800 mg q.i.d. to 300-400 mg t.i.d., discontinue hydroxyzine, continue lorazepam 0.5 mg p.o./SL q.6-8hrs, and discontinue buspirone. 06/28/25: Patient tells me she continues to improve. She is more awake and alert and communicative today. Overall she says her breathing is at her normal. She denies shortness of breath at rest. She has not been out of bed yet. She has no dyspnea on exertion with physical therapy doing exercises in the bed. Her cough is 90% back to her normal with no phlegm and no hemoptysis. Patient is on 3 L nasal cannula saturation 94%. She is afebrile for 30 hours. White blood cell count 10.9, creatinine 0.97. BNP has improved from 3450 on 06/27/2025 to 1970 today. Chest x-ray shows improved aeration left base with diffuse interstitial alveolar infiltrate on the left. Weight is 82.2. In's and out's are not recorded. Plan: Breathing has improved. Requiring 3 L oxygen. No wheezing today. Will discontinue ipratropium nebulizers. AFib is better controlled and will place the patient on Anoro Ellipta for therapeutic trial. Continue guaifenesin 1200 p.o. b.i.d.. Continue treatment for pneumonia, AFib in fluid overload. More awake and alert today. duloxetine 60 mg daily instead of b.i.d., risperidone 0.5 q.day and 1 mg p.o. HS., reduce gabapentin from 400 mg q.8 hours. 06/29/25: Patient tells me she continues to improve. Overall she says her breathing is at her normal. She denies shortness of breath at rest. Yesterday with PT she walked for 20 ft on 3 L nasal cannula with minimal assistance said she had no shortness of breath and her saturations were 88-94. Her cough is improving with no phlegm and no hemoptysis. Patient is on 2 L nasal cannula saturation 97. I decreased her to room air and after 4 minutes her saturations were 89% and I placed her on 1 L nasal cannula her saturations were 93%. She is afebrile for 53 hours. White blood cell count 12.6, creatinine 0.92. Weight is 80.7. In's and out's are not recorded. Plan: Breathing has improved. Requiring 1 L oxygen. No wheezing today. Stable on Anoro Ellipta, guaifenesin 1200 p.o. b.i.d.. Continue treatment for pneumonia, AFib in fluid overload. On duloxetine 60 mg daily instead of b.i.d., risperidone 0.5 q.day and 1 mg p.o. HS., and gabapentin from 400 mg q.8 hours. Goal saturation 90-94%. Adjust oxygen accordingly. Inpatient pulmonary consult services will resume on 07/02/2025, call with questions Discussed with Dr. Foster, will follow with you. (2) Pneumonia: Qualifiers: Laterality: bilateral Lung location: unspecified part of lung Pneum onia type: due to unspecified organism Qualified Code(s): J18.9 - Pneumonia, unspecified organism Code(s): J18.9 - Pneumonia, unspecified organism Status: Acute Assessment and Plan: Patient presents with worsening respiratory symptoms, no leukocytosis, afebrile, COVID influenza RSV RT PCR assay negative, MRSA swab negative, chest x-ray with small effusions and congestion and a CT scan with bilateral infiltrates. CT scan of the chest 06/23/2025 compared to 05/06/2025 shows new bilateral upper lobe infiltrates right greater than left small medial segment of the right middle lobe infiltrate lingular infiltrates with very small left pleural effusion. These ground-glass infiltrates are new since 05/06/2025 there is no evidence of chronic interstitial lung disease, bullous emphysema, nodules or masses. ceftriaxone x1 dose 06/22 Plan: I will discontinue vancomycin. I am no evidence for anaerobic lung infection will discontinue metronidazole. Will continue levofloxacin 750 mg Q 48 hours and doxycycline 100 q.12. I will send a repeat COVID influenza RSV RT PCR assay. I will send respiratory pathogen panel, urine for Legionella antigen, urine for pneumococcal antigen and serum for mycoplasma IgM. COVID, influenza, RSV RT PCR assay negative 06/22 and 06/24. Respiratory pathogen panel, urine for Legionella antigen, urine for pneumococcal antigen and serum mycoplasma IgM pending 06/25/2025: Patient was improving 3 yesterday. Afebrile, White blood cell count 16.2, she has no cough, phlegm or hemoptysis. Plan: Continue treatment for pneumonia with doxycycline started 06/22/2025, day 4 and l levofloxacin started 06/23/2025. Status post ceftriaxone x1 dose on 06/22/2025. Status post vancomycin 1 dose on 06/23/2025. Status post Flagyl 06/23 through 06/25 AFib RVR with fluid overload, 06/26/25: No progression of her chest x-ray, leukocytosis is improving, afebrile, oxygenation is improving. Plan: Continue doxycycline, day 5 and levofloxacin day 3. 06/27/25: Patient had a fever last night with improvement in her respiratory symptoms. Improvement in her leukocytosis, stable oxygenation. She denies worsening phlegm or shortness of breath. CRP increased from 18.2 on 06/26/2025 to 27.5. Plan: Patient has completed 5 days of doxycycline. Currently on day 4 of Levaquin. Will follow patient's fever curve. At this time do not feel the fevers are related to a pulmonary infectio. 06/28/25: patient has been afebrile for 30 hours. White blood cell count 10.9, respiratory status is improving. Oxygenation is improving now on 3 L. Chest x- ray shows improved aeration left base with diffuse interstitial alveolar infiltrate on the left. Respiratory pathogen panel negative, serum mycoplasma IgM negative. Urine for Legionella and urine for pneumococcal pending. plan: Patient is on day 6 of levofloxacin 750 mg IV q.day. Chest x-ray better aerated at the left base. She may have a layering pleural effusion. Will continue levofloxacin. 06/29/25: She is afebrile for 53 hours. White blood cell count 12.6, respiratory status continues to improve. Oxygenation continues to improve. Respiratory pathogen panel negative, serum mycoplasma IgM, Urine for Legionella and urine for pneumococcal all negative. Plan: Patient is on day 7 of levofloxacin 750 IV q.day and will continue for a total of 10 days. (3) Acute exacerbation of CHF (congestive heart failure): Qualifiers: Heart failure type: diastolic Qualified Code(s): I50.33 - Acute on chronic diastolic (congestive) heart failure Code(s): I50.9 - Heart failure, unspecified Status: Acute Assessment and Plan: Patient with fluid overload and AFib with RVR. 06/24/25: BNP has improved from 3630 on 06/22/2025 to 2770 today. she has been diuresed with Lasix 40 IV b.i.d.. Yesterday she was positive 379 mL. Cumulative she is positive 2.7 L since admission. Her heart rate was AFib 130- 14o Plan: Management per director of restaurants and hospitalist teams. Recommended as aggressive diuresis as tolerated by patient's cardiac and renal systems. I have discontinue levalbuterol. Patient has been switched to 40 mg p.o. q.day start time 5:00 p.m.. 06/25/25: This morning she had gotten up to the chair and her heart rate increased to 170 and she had worsening shortness of breath. creatinine 1.03 yesterday she was -500 mL. Cumulative she is positive 2.0 L since admission. Her weight today is 90.2. [employer] has been notified regarding her AFib with RVR. Plan: Management per director of restaurants and hospitalist team. Currently on Lasix 40 q.day. 06/26/25: yesterday she was -640 mL. Cumulative she is positive 1.6 L since admission. her weight today is 84.3 kg. Her BNP is worse from 2770 on 2024 to 5330. Plan: Management per director of restaurants and hospitalist teams. Consider higher doses of Lasix. 06/27/25: BNP has improved from 5330 on 06/26/2025 to 3450 today. Yesterday she was positive 260 mL, . Cumulative she is positive 1.9 L since admission. Her weight today is 84.3 kg. heart rate is better controlled today with a flutter at 100-110. Plan: Management per director of restaurants and hospitalist team. Currently on Lasix 40 p.o. b.i.d.. 06/28/25: BNP has improved from 3450 on 06/27/2025 to 1970 today. Chest x-ray shows improved aeration left base with diffuse interstitial alveolar infiltrate on the left. Weight is 82.2. In's and out's are not recorded. Plan: AFib better controlled. Continue Lasix 40 p.o. b.i.d. Management per Cardiology and hospitalist teams. 06/29/25: Weight is 80.7. In's and out's are not recorded. Plan: Continue Lasix 40 p.o. b.i.d.. Follow BNP. Management AFib and CHF per Cardiology and hospitalist teams. Subjective Date/time seen: 06/29/25 08:48 Interval history: 06/24/2025: This is a new pulmonary consult for respiratory failure. 74-year-old with a history of CHF, DM, HTN, GERD, HLD, COPD patient is followed in the Pulmonary Clinic in last seen on 04/02/2025: This is note and plan. 3 month follow-up regarding coughing. Hx: CHF, DM, HTN, GERD, HLD, COPD. Sees [facility] cardiology. She was hospitalized last month 02/22/25 from 02/25 regarding afib RVR, NAT, CHF, and pneumonia. CXR showed confluent opacity in the lower 3rd of the left hemithorax which is a slightly increased in size, small patchy opacities in the right lower lung. CTA of the chest showed a few small ground-glass and patchy opacities in both lungs more prominent in the lower lungs, small left pleural effusion, tiny right pleural effusion, several low-density indeterminate lesions scattered throughout the liver, indeterminate 2.3 cm left adrenal nodule. She was tx with abx for PNA, Cardizem gtt for afib, fluid bolus for NAT, and Lasix for CHF. She went to the ER 3 days after discharge as the metoprolol dose was increased prior and she was having lightheadedness, heart racing, and low BP. Chest x-ray showing likely a small pleural effusion on the left. Recommended follow-up with cardiology. Prior to her hospitalization, she called our office c/o dyspnea, dry coughing, and wheezing. CXR showed Bibasilar infiltrates may represent atelectasis or pneumonia. No significant change. Small pleural effusions. She was tx with doxycycline on 02/12. Today she reports improvement in symptoms since discharge. HAMMER is better and she is not coughing as much as she previously did. Tessalon Perles seem to help. She was to be setup on nebulizer with Duonebs last visit. However she reports she never got it. She has been using her rescue inhaler 2x/day which she feels helps. She reports unchanged symptoms of wheezing at times. Otherwise denies chest pains/tightness, fever, hemoptysis, or nighttime breathing issues. Current smoker 6 cigs/day. Smoker for 10 year 0.5ppd. Denies family hx of lung disease. Weight 175 lb room air saturations 95% plan: PFTs with prism. . Astepro did not help her coughing. Resend an order for nebulizer with DuoNebs p.r.n.. Pleural effusions: CT scan of the chest. 05/06/2025: CT scan of the chest with a very small left pleural effusion, discoid atelectasis anterior left lower lobe and minimal right dependent atelectasis in the right lower lobe. No emphysematous changes. No nodules or masses. 06/17/2025: Patient presented to the emergency room with dyspnea on exertion for 2-3 days, wheezing, room air saturations 95%. Chest x-ray with no acute abn ormalities. Patient was diagnosed with bronchitis and treated with prednisone x5 days. Patient took this prednisone as prescribed but 1 day after finishing the prednisone she had worsening shortness of breath. 06/22/2025 patient presented to the emergency department with worsening shortness of breath, cough, wheezes the felt like worsening COPD exacerbation. Blood pressure 110/58, heart rate 81, respirations 22, room air saturations 86%. Patient was placed on 3 L nasal cannula saturations were 98%. She had diffuse wheezes. White blood cell count was 10.9, eosinophils 0.6%. BNP 3630. Creatinine 1.09. COVID influenza RSV RT PCR assay negative. Chest x-ray showed small effusions with congestion. She was given 2 L IV fluid, Solu-Medrol, Lasix 20 IV, ceftriaxone and doxycycline. MRSA swab was negative. 06/23/2025: Patient developed AFib RVR requiring IV metoprolol and IV diltiazem. She had worsening oxygenation requiring Airvo at 8:00 p.m. 45 L, 80% FiO2 with saturations 92%. Antibiotics were changed to vancomycin and Levaquin. Her MRSA swab was negative and vancomycin was discontinued. 06/24/2025: Patient tells me she has improved. She has 50% back to her normal. Her cough is essentially resolved. She denies phlegm or hemoptysis. She has no wheezing. When I enter the room she was on Airvo 40 L, 66% FiO2 with saturations 96%. The placed her on 15 L nasal cannula and sequentially decreased her to 10 L nasal cannula saturations 93%. Clinically she had no change when I switched her to nasal cannula oxygen. White blood cell count 18.1, creatinine 1.01. Procalcitonin unchanged from 0.1 on 06/23/2025 20.1 today. CRP today 13.0. BNP has improved from 3630 on 06/22/2025 to 2770 today. she has been diuresed with Lasix 40 IV b.i.d.. Yesterday she was positive 379 mL. Cumulative she is positive 2.7 L since admission. Her heart rate was AFib 130-140 and I have discontinue levalbuterol. 06/25/2025: Patient said she did well yesterday and slept well through the night. This morning she had gotten up to the chair and her heart rate increased to 170 and she had worsening shortness of breath. She denies any current cough, phlegm or hemoptysis. Currently she is on 10 L nasal cannula with saturation 96%. Her heart rate is 150-175 irregularly irregular. White blood cell count 16.2, creatinine 1.03 yesterday she was -500 mL. Cumulative she is positive 2.0 L since admission. Her weight today is 90.2. [employer] has been notified regarding her AFib with RVR. 06/26/25: Patient was agitated and had pain through the night and is receive narcotics, BuSpar, on gabapentin, risperidone as well. The pulse morning says she is breathing worse, worse cough with no phlegm and no hemoptysis. She is lethargic and I ordered a stat ABG on 7 L nasal cannula shows 7.42. Her heart rate was 120 and she is scheduled to receive her diltiazem and metoprolol. I called the nurse back in an hour and her heart rate now is 70-80, her respiratory status has improved and she is on 4 L nasal cannula saturations 93-95%. She is afebrile. White blood cell count 11.1, creatinine 0.84. Yesterday she was -640 mL. Cumulative she is positive 1.6 L since admission. her weight today is 84.3 kg. Her BNP is worse from 2770 on 06/24/2025 to 5330. Her CRP is increased from 13 on 06/24/2025 to 18.2 today. Her chest x-ray today shows continued infiltrates and congestion with no significant change from 06/23/2025. 06/27/25: The patient tells me she feels better today. Overall she says her breathing is 50% back to her normal. She has no cough, phlegm, hemoptysis. She did not feel any fever. When I enter the room she was on 5 L nasal cannula saturations 95%. I decreased her to 3 L nasal cannula her saturations were 89%. I placed her back on 4 L nasal cannula saturations 92%. Patient had a fever last night at 8:00 p.m. a 37.9. White blood cell count 10.7, creatinine 0.87. BNP has improved from 5330 on 06/26/2025 to 3450 today. Yesterday she was positive 260 mL, . Cumulative she is positive 1.9 L since admission. Her weight today is 84.3 kg. 06/28/25: Patient tells me she continues to improve. She is more awake and alert and communicative today. Overall she says her breathing is at her normal. She denies shortness of breath at rest. She has not been out of bed yet. She has no dyspnea on exertion with physical therapy doing exercises in the bed. Her cough is 90% back to her normal with no phlegm and no hemoptysis. Patient is on 3 L nasal cannula saturation 94%. She is afebrile for 30 hours. White blood cell count 10.9, creatinine 0.97. BNP has improved from 3450 on 06/27/2025 to 1970 today. Chest x-ray shows improved aeration left base with diffuse interstitial alveolar infiltrate on the left. Weight is 82.2. In's and out's are not recorded. 06/29/25: Patient tells me she continues to improve. Overall she says her breathing is at her normal. She denies shortness of breath at rest. Yesterday with PT she walked for 20 ft on 3 L nasal cannula with minimal assistance said she had no shortness of breath and her saturations were 88-94. Her cough is improving with no phlegm and no hemoptysis. Patient is on 2 L nasal cannula saturation 97. I decreased her to room air and after 4 minutes her saturations were 89% and I placed her on 1 L nasal cannula her saturations were 93%. She is afebrile for 53 hours. White blood cell count 12.6, creatinine 0.92. Weight is 80.7. In's and out's are not recorded. DATA: 06/23/25: EXAMINATION: CT diagnostic chest wo con, 06/23/2025 18:00 MANAGER DATA WAREHOUSING HISTORY: Pulm edema vs pneumnia COMPARISON: No comparisons available. FINDINGS: No significant coronary calcification is present ([id number]) LUNGS: Trace left pleural effusion. Trace right pleural effusion. No tracheomalacia. No bronchiectasis. Minimal emphysematous changes. Mild pulmonary fibrotic changes. There are bilateral areas of groundglass attenuation with infiltrates in the upper lobes bilaterally, the left lower lobe and the right lower lobe as well as the right middle lobe. Scattered micronodules are noted which are probably infectious. HEART AND PERICARDIUM: Mild cardiomegaly. Trace pericardial effusion. AORTA: Normal caliber aorta. ADENOPATHY/MEDIASTINUM: None. LIMITED VIEWS OF THE ABDOMEN: Complex appearing liver cysts the largest right lobe liver 1 x 1 cm. Right kidney renal calculi noted the largest mid pole 3 mm with partially imaged probable renal cyst 2 x 2 cm. Left kidney renal calculi the largest mid pole 2 mm. There is thickening of the adrenal glands bilaterally with left adrenal nodule 1 x 1 cm probable benign adrenal adenoma. Small hiatal hernia noted. OSSEOUS STRUCTURES: No acute osseous abnormality.No suspicious lesions. OVERLYING SOFT TISSUES: Unremarkable. THYROID: The thyroid is unremarkable. IMPRESSION: Severe bilateral bronchopneumonia. Follow-up recommended to assess resolution. 06/22/25: Echo Summary 1. Left ventricular systolic function is hyperdynamic, estimated at >70. 2. There is mildly increased left ventricular wall thickness. 3. The left ventricular diastolic function is abnormal. 4. Left atrial chamber dimension is mildly enlarged. 5. There is small pericardial effusion. 6. atrial fibrillation with RVR. Right Ventricle Right ventricular chamber dimension is normal. Right ventricular systolic function is normal. Left Atria Left atrial chamber dimension is mildly enlarged. Right Atria Right atrial chamber dimension is normal. No tricuspid regurg and no PASP calculated 05/06/25: EXAMINATION: CT diagnostic chest wo con INDICATION: J90 - Pleural effusion, not elsewhere classified COMPARISON: CT dated 02/22/2025 FINDINGS: Tiny left pleural effusion. Discoid atelectasis in the left upper lobe and lingula along the major fissure. Compressive atelectasis in the anterior basilar left lower lobe along side the enlarged heart discoid and basilar atelectasis in the right lower lobe and atelectasis at the posterior medial aspect of the right middle lobe. No pulmonary edema, pneumonia or right-sided pleural effusion. Atherosclerotic coronary artery calcification is. No pericardial effusion. Thoracic aorta is normal in caliber. No pathologically enlarged thoracic lymphadenopathy. Multiple scattered small bilateral nonobstructing renal stones the largest in the right kidney measuring 4-5 mm. 3.3 cm right renal cyst. There are also several smaller cysts in the liver measuring up to 1.4 cm. 1.5 cm low- attenuation left adrenal adenoma. Mild thoracic dextroscoliosis with moderate to severe spondylosis. T10 hemangioma. C5-C7 anterior spinal fusion with anterior plate and screw fixation.. IMPRESSION: 1. Very small left pleural effusion and scattered atelectasis in the left mid and bilateral lower lung zones. 2. Cardiomegaly. 3. Bilateral nonobstructing nephrolithiasis. 03/30/25: EXAMINATION: MR abdomen wo/w con INDICATION: Liver disease, unspecified. TECHNIQUE: Magnetic resonance imaging (MRI) of the abdomen was performed without and with 15 mL MultiHance intravenous contrast. COMPARISON: Abdomen MRI 01/18/2020 FINDINGS: Cardiomegaly is noted. No pericardial effusion. There is trace pleural effusions. There is diffuse hepatic steatosis. There are cysts in the liver measuring up to 11 mm. The gallbladder is absent. The common duct measures 12 mm in diameter, likely not clinically significant given the normal liver function tests on 03/27/2025. The spleen, pancreas, and right adrenal gland are normal. There is chronic thickening of left adrenal gland, likely benign. There are cysts in the kidneys measuring up to 3.8 cm on the right. There are no dilated loops of bowel. There are no pathologically enlarged lymph nodes. There is no free intraperitoneal fluid. IMPRESSION: 1. Diffuse hepatic steatosis. 02/22/2025: EXAMINATION: CTA chest PE protocol INDICATION: Palpitations. Atrial fibrillation. COMPARISON: 09/02/2017 FINDINGS: Cervical hardware. There is a mildly enlarged 1.4 cm subcarinal lymph node similar to the study from 09/02/2017. There are a few additional nonenlarged mediastinal and hilar lymph nodes. Several new low-density lesions scattered throughout the liver, the largest measures 1.5 cm in the right lobe of the liver. A Liver mass MRI is recommended. There is a too small to characterize low-attenuation lesion in the right kidney. Indeterminate 2.3 cm left adrenal nodule. An adrenal mass MRI is recommended. Heart is moderately enlarged. There are coronary artery calcifications. Thoracic aorta is not aneurysmal. Mild to moderate discredit disease in the thor acic aorta. Small left-sided pleural effusion. Bones appear osteopenic. Multilevel degenerative change in the visualized spine. Visualized tracheobronchial tree is patent. Tiny right-sided pleural effusion. Mild biapical scarring. There are a few small groundglass and patchy opacities in both lungs most prominent in the lower lobes. IMPRESSION: 1. There are a few small groundglass and patchy opacities in both lungs most prominent in the lower lobes. Differential includes but is not limited to atelectasis/scarring or infiltrates. 2. Small left-sided pleural effusion. Tiny right-sided pleural effusion. 3. Several new low-density indeterminate lesions scattered throughout the liver, the largest measures 1.5 cm in the right lobe of the liver. A Liver mass MRI is recommended. 4. Indeterminate 2.3 cm left adrenal nodule. An adrenal mass MRI is recommended. CXR 02/28/25 - Confluent opacity in the lower third of the left hemithorax. Differential includes a combination of pleural fluid with adjacent atelectasis and/or consolidation. An underlying mass is possible. Recommend follow-up to resolution. Consider a chest CT. Small patchy opacities in the right mid and lower lung. Differential includes metastasis/scarring or infiltrates. 12/12/2024: This is a pulmonary function test with pre and post-bronchodilator spirometry, plethysmography and diffusing capacity. The test was performed and results interpreted in accordance with the 2019 and 2005 ATS/ERS Task Force guidelines respectively using the Global Lung Function Initiative-2012 reference equations. Patient demonstrated good effort and cooperation. Reproducibility criteria were met. The quality of the pre [facility] hodilator spirometry maneuver was Grade A and post bronchodilator spirometry maneuver was Grade A. Findings: Spirometry: The contour the inspiratory and expiratory flow tracing are normal. The pre bronchodilator FVC is 1.90 L, 76% predicted. The pre bronchodilator FEV1 is 1.34 L, 69% predicted. The pre bronchodilator FEV1: FVC ratio 70%. The post bronchodilator FVC is 1.89 L, representing a 1% decrease. The post bronchodilator FEV1 is 1.37 L, representing a 3% increase. The post bronchodilator FEV1: FVC ratio is 73%. Plethysmography: The total lung capacity is 4.01 L, 87% predicted. The functional residual capacity is 2.42 L, 92% predicted. The residual volume is 2.12 L, 102% predicted. Diffusing capacity: The diffusing capacity unadjusted for hemoglobin and carboxyhemoglobin is 10.0, 53% predicted. The diffusing capacity adjusted for alveolar volume is 3.03, 69% predicted. Impression: The FEV1 is less than 80% predicted and the FEV1: FVC ratio is greater than the lower limit of normal consistent with Preserved Ratio Impaired Spirometry (PRISm) with a normal FVC. The spirometry is normal without evidence of an obstructive abnormality. There is no significant improvement after inhaling a single dose of albuterol. The lung volumes are normal. The diffusing capacity unadjusted for hemoglobin and carboxyhemoglobin is moderately decreased and remains mildly decreased when adjusted for alveolar volume. There are no prior studies for comparison 12/12/2024: This is a 6 minute walk test. The test was performed and interpreted in accordance with the 2014 ERS/ATS task force guidelines. Of note, the last 2 minutes the patient used to wheeled walker due to back pain. Findings: The patient's resting room air oxygen saturation measured by pulse oximetry was 95%, the heart rate was 90 bpm, and the modified Thanh dyspnea score was 0. Patient ambulated for 213 meters and oxygen saturation remained 91 to 94%. At the end of the study the heart rate was 112 bpm and the modified Thanh dyspnea score was 0. The patient did not qualify for supplemental oxygen at rest or with ambulation. CXR 09/29/24 - Small left pleural effusion is present. Possible minimal right pleural effusion. Echo 10/23/22 - EF 55-60%, left ventricular diastolic function is abnormal, mild pulmHTN RVSP 46mmHg. 10/22/2022: EXAMINATION: CTA chest PE protocol INDICATION: Chest pain, shortness of breath and elevated d-dimer. COMPARISON: CT dated 09/02/2017 and chest x-ray dated 11/08/2022. FINDINGS: Study is technically limited for evaluation of right upper lobe pulmonary arteries due to motion and contrast bolus timing. No large central pulmonary embolism. Cardiomegaly. Small pleural effusions. There is mediastinal lymphadenopathy, likely reactive. Patchy groundglass opacities involving the upper lobes and right lower lobe. There is dependent atelectasis. No endobronchial lesions. No pneumothorax. No evidence for aortic aneurysm or dissection. There are multiple low-density lesions in the liver, largest in the right hepatic lobe showing 1.5 cm, compatible with a cyst. There is nodular thickening of the adrenal glands, likely secondary to benign adenomas. Moderate thoracic spondylosis. Surgical fusion changes present in the lower cervical spine. 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 IMPRESSION: 1. Patchy groundglass opacities, most confluent in the right upper lobe, consistent with pneumonia. 2: No large central pulmonary embolism. 3: Mediastinal lymphadenopathy, likely reactive. 4: Small pleural effusions. Review of Systems Constitutional: Constitutional: Reports no additional constitutional complaints Eyes: Eyes: Reports no additional eye complaints ENT: Reports system reviewed and no additional complaints, except as documented Cardiovascular: Cardiovascular: Reports no additional cardiovascular complaints Respiratory: Respiratory: Reports no additional respiratory complaints Gastrointestinal: Gastrointestinal: Reports no additional gastrointestinal complaints Musculoskeletal: Musculoskeletal: Reports no additional musculoskeletal complaints Neurologic: Reports system reviewed and no additional complaints, except as documented Psychiatric: Psychiatric: Reports no additional psychiatric complaints Endocrine: Endocrine: Reports no additional endocrine complaints Hematologic/Lymphatic: Hematologic/Lymphatic: Reports no additional hematologic/lymphatic complaints Allergic/Immunologic: Allergic/Immunologic: Reports no additional allergic/immunologic complaints Exam Const: General: cooperative, healthy appearing and comfortable Orientation/consciousness: oriented to person, oriented to place and oriented to time HENMT: Head: normal to inspection Ears: hearing grossly normal bilaterally Eyes: General: appearance normal, both eyes and all related structures Neck: Neck: normal visual inspection Chest: Chest palpation & inspection: normal inspection of the chest Resp: Effort & Inspection: normal respiratory effort and able to speak in complete sentences Auscultation: no crackles, no rales, no rhonchi, no wheezes and lung sounds not diminished Other: Few inspiratory crackles at the bases. Cardio: Jugular venous distension: no JVD GI: Inspection: normal to inspection Skin: General skin exam: normal color Neuro: General: oriented to person, oriented to place and oriented to time Extrem: General: normal to inspection Psych: Appearance: grossly normal Objective Data Vital Signs Vital Signs: Vital Signs - 24 hr 06/28/25 09:03 06/28/25 10:00 06/28/25 11:20 Temperature Pulse Rate 123 H 77 Respiratory Rate Blood Pressure Pulse Oximetry 96 Oxygen Delivery Nasal Cannula Oxygen Flow Rate 2 06/28/25 11:59 06/28/25 12:00 06/28/25 12:04 Temperature 37.0 C Pulse Rate 86 91 Respiratory Rate 18 Blood Pressure 85/56 L Pulse Oximetry 97 Oxygen Delivery Nasal Cannula Oxygen Flow Rate 2 06/28/25 13:04 06/28/25 13:04 06/28/25 14:00 Temperature Pulse Rate 102 H Respiratory Rate Blood Pressure 96/57 L 111/61 Pulse Oximetry Oxygen Delivery Oxygen Flow Rate 06/28/25 15:58 06/28/25 16:00 06/28/25 16:00 Temperature 36.7 C Pulse Rate 114 H 113 H Respiratory Rate 20 Blood Pressure 101/60 Pulse Oximetry 98 93 Oxygen Delivery Nasal Cannula Oxygen Flow Rate 1 06/28/25 17:15 06/28/25 18:00 06/28/25 20:00 Temperature 36.9 C Pulse Rate 108 H 124 H 104 H Respiratory Rate 20 Blood Pressure 129/67 124/65 Pulse Oximetry 93 96 Oxygen Delivery Oxygen Flow Rate 06/28/25 20:00 06/28/25 20:00 06/28/25 20:23 Temperature Pulse Rate 118 H 114 H Respiratory Rate Blood Pressure Pulse Oximetry 96 Oxygen Delivery Nasal Cannula Oxygen Flow Rate 1.5 06/28/25 22:00 06/28/25 23:42 06/29/25 00:00 Temperature 37.1 C Pulse Rate 92 95 Respiratory Rate 20 Blood Pressure 107/60 Pulse Oximetry 95 95 Oxygen Delivery Nasal Cannula Oxygen Flow Rate 1.5 06/29/25 00:00 06/29/25 02:00 06/29/25 04:00 Temperature 36.3 C L Pulse Rate 91 100 94 Respiratory Rate 20 Blood Pressure 106/43 L Pulse Oximetry 90 Oxygen Delivery Oxygen Flow Rate 06/29/25 04:00 06/29/25 04:00 06/29/25 05:33 Temperature Pulse Rate 90 109 H Respiratory Rate Blood Pressure 118/64 Pulse Oximetry 90 Oxygen Delivery Nasal Cannula Oxygen Flow Rate 1.5 06/29/25 06:00 06/29/25 08:00 06/29/25 08:36 Temperature 36.5 C Pulse Rate 107 H 98 86 Respiratory Rate 20 18 Blood Pressure 109/54 L Pulse Oximetry 99 Oxygen Delivery Oxygen Flow Rate 06/29/25 08:45 Temperature Pulse Rate 104 H Respiratory Rate Blood Pressure Pulse Oximetry Oxygen Delivery Oxygen Flow Rate Intake/Output Intake/Output: Intake & Output 06/26/25 06/27/25 06/28/25 06/29/25 23:59 23:59 23:59 23:59 Intake Total 460 610 990 Output Total 200 Balance 260 610 990 Meds/Results Medications: Active Medications Generic Name Dose Route Start Last Admin Trade Name Freq PRN Reason Stop Dose Admin Acetaminophen 650 mg 06/22/25 14:49 06/27/25 15:53 Acetaminophen 325 Mg Tablet PO 650 mg Q4H PRN Administration Mild Pain (1-3) or Fever Hydrocodone Bitart/Acetaminophen 1 tab 06/23/25 08:08 06/27/25 21:41 Hydrocodone/Acetaminophen (*Crx) 5-325 Mg Tablet PO 1 tab Q8H PRN Administration Pain Benzonatate 100 mg 06/22/25 16:14 06/28/25 23:55 Benzonatate 100 Mg Capsule PO 100 mg TID PRN Administration Cough Dextrose 12.5 gm 06/22/25 15:39 Dextrose 50% 25 Gm/50 Ml Syringe IV PUSH PRN PRN Hypoglycemia Protocol Diltiazem HCl 90 mg 06/26/25 18:00 06/29/25 05:33 Diltiazem Hcl 60 Mg Tablet PO 90 mg Q6HR ROSE MARY Administration Duloxetine HCl 60 mg 06/28/25 09:00 06/29/25 08:45 Duloxetine Hcl 60 Mg Capsule.Dr PO 60 mg DAILY ROSE MARY Administration Furosemide 40 mg 06/26/25 17:00 06/29/25 08:46 Furosemide 40 Mg Tablet PO 40 mg BIDWM ROSE MARY Administration Gabapentin 400 mg 06/27/25 06:00 06/29/25 05:33 Gabapentin 400 Mg Capsule PO 400 mg Q8HR ROSE MARY Administration Glucagon 1 mg 06/22/25 15:39 Glucagon For Inj 1 Mg Vial IM PRN PRN Hypoglycemia Protocol Glucose 15 gm 06/22/25 15:39 Glucose Oral Gel 15 Gm Of Glucse In 37.5 Gm Tube PO PRN PRN Hypoglycemia Protocol Guaifenesin 1,200 mg 06/24/25 21:00 06/29/25 08:46 Guaifenesin 12 Hr 600 Mg Tabcr PO 1,200 mg Q12HR ROSE MARY Administration Dextrose 1,000 mls @ 100 mls/hr 06/22/25 15:39 Dextrose 5% 1,000 Ml IVPB PRN PRN Hypoglycemia Protocol Levofloxacin/Dextrose 750 mg in 150 mls @ 100 mls/hr 06/26/25 15:00 06/28/25 17:17 Levaquin 750 Mg/D5w 150 Ml IVPB 100 mls/hr DAILY@1500 ROSE MARY Administration Lorazepam 0.5 mg 06/27/25 11:35 06/28/25 20:24 Lorazepam (*Crx) 0.5 Mg Tablet PO 0.5 mg Q6H PRN Administration Anxiety Losartan Potassium 25 mg 06/22/25 17:00 06/29/25 08:45 Losartan Potassium 25 Mg Tablet PO 25 mg BID ROSE MARY Administration Metoprolol Tartrate 50 mg 06/25/25 09:00 06/29/25 08:45 Metoprolol Tartrate 50 Mg Tab PO 50 mg Q12HR ROSE MARY Administration Nitroglycerin 0.4 mg 06/22/25 15:39 Nitroglycerin Sl 0.4 Mg Tablet SUBLINGUAL Q5MIN PRN Chest Pain Risperidone 1 mg 06/27/25 21:00 06/28/25 20:23 Risperidone 1 Mg Tablet PO 1 mg HS ROSE MARY Administration Risperidone 0.5 mg 06/28/25 09:00 06/29/25 08:45 Risperidone 0.25 Mg Tablet PO 0.5 mg DAILY ROSE MARY Administration Rivaroxaban 20 mg 06/22/25 17:00 06/28/25 17:17 Rivaroxaban 20 Mg Tablet PO 20 mg DAILY@1700 ROSE MARY Administration Simvastatin 20 mg 06/22/25 21:00 06/28/25 20:23 Simvastatin 20 Mg Tablet PO 20 mg HS ROSE MARY Administration Umeclidinium/Vilanterol 1 puff 06/28/25 10:55 06/29/25 08:34 Umeclidinium/Vilanterol 62.5-25 Mcg Ellipta INHALATION 1 puff DAILYRT ROSE MARY Administration Vitamin D 50 mcg 06/23/25 09:00 06/29/25 08:45 Cholecalciferol (Vitamin D3) 25 Mcg (1,000 Units) Tablet PO 50 mcg DAILY ROSE MARY Administration Radiology Results: ITS Impressions Head CT 06/23/25 12:29 IMPRESSION: 1. No acute intracranial findings. Chest CT 06/23/25 18:21 IMPRESSION: Severe bilateral bronchopneumonia. Follow-up recommended to assess resolution. Chest X-Ray 06/28/25 07:51 IMPRESSION: 1. Improved aeration of left lung base with decreased size of effusion. Layering effusion may be present along with persisting pulmonary edema/consolidation. Labs Labs: Laboratory Results - last 24 hr 06/29/25 04:25 WBC 12.6 H RBC 4.04 L Hgb 11.6 L Hct 37.2 MCV 92.1 MCH 28.7 MCHC 31.2 L RDW 15.7 H Plt Count 260 MPV 10.8 H Sodium 143 Potassium 3.6 Chloride 109 H Carbon Dioxide 29 Anion Gap 5 BUN 25 H Creatinine 0.92 Estim Creat Clear Calc 47 Estimated GFR 60 Glucose 116 H Calcium 9.3 Total Bilirubin 0.6 AST 24 ALT 16 Alkaline Phosphatase 52 Total Protein 6.2 L Albumin 3.3 L
--- NOTE | 2025-06-29 08:53 | P.PNIM_ITS ---
Assessment and Plan Assessment and Plan (1) COPD (chronic obstructive pulmonary disease): Qualifiers: COPD type: unspecified COPD Qualified Code(s): J44.9 - Chronic obstructive pulmonary disease, unspecified Code(s): J44.9 - Chronic obstructive pulmonary disease, unspecified Status: Chronic Assessment and Plan: New shortness of breath, chronic dry cough that initially improved with nebulizer in the ED on 06 17. However has been progressively more short of breath since then. Admitted on 06/22. Initial evaluation in the ED showed diffuse expiratory wheezing, new O2 requirement, and tachypnea. Modestly improved with nebulizers. - continue levalbuterol/HR vent scheduled -complete prednisone 40 mg daily x5 days, given Solu-Medrol in the ED initially - s/p ceftriaxone and doxycycline on 06/22, allergy to erythromycin - Mucinex yudelka - continue supplemental O2 to maintain O2 sat greater than 92%, currently requiring 3L NC. No baseline requirement. (2) Atrial fibrillation with rapid ventricular response: Code(s): I48.91 - Unspecified atrial fibrillation Status: Acute Assessment and Plan: Patient arrived in NSR. Post multiple breathing treatments she developed AFib RVR, has history of AFib. Minimal response with metoprolol 5 mg IV x2. Given home metoprolol dose orally. Remains in the 120s, intermittently in the 150s. If no improvement with third dose of IV metoprolol, will transition to IV diltiazem. - admission to IMU - telemetry monitoring - Continue Cardizem and Metoprolol per cardiology, monitor HR - TSH reviewed, 1.44 on 02/23/2025 - continue Xarelto (3) Acute exacerbation of CHF (congestive heart failure): Qualifiers: Heart failure type: diastolic Qualified Code(s): I50.33 - Acute on chronic diastolic (congestive) heart failure Code(s): I50.9 - Heart failure, unspecified Status: Acute Assessment and Plan: CXR concerning for small bilateral pleural effusions with vascular changes which may represent mild vascular congestion or atypical inflammatory/infectious process. Denies any new peripheral edema or weight gain, does report she is at 3 lb of weight gain over the past few months however does not feel it is fluid related. Last echo on file in 2022 which showed EF of 55-60%, diastolic dysfunction, LV wall thickness increased, LA chamber moderately enlarged, mild pulmonary hypertension, trivial pericardial effusion. - update echo - monitor I&Os daily weights - s/p IV Lasix , now on Lasix 40mg daily increased to b.i.d. (4) Elevated troponin: Code(s): R79.89 - Other specified abnormal findings of blood chemistry Status: Acute Assessment and Plan: Likely type 2 given new hypoxia. Was 86% on room air due to COPD exacerbation. Troponin currently downtrending. No reports of chest pain. Does have some chest tightness with exertion, however shortness of breath significantly worsens with exertion as well. Now additionally in AFib RVR secondary to nebulizer treatments. EKG reviewed, no significant ST depressions or elevations. PACs and PVCs now present when compared to previous. - trend troponin - SL nitro p.r.n. (5) Hypertension: Qualifiers: Hypertension type: primary hypertension Qualified Code(s): I10 - Essential (primary) hypertension Code(s): I10 - Essential (primary) hypertension Status: Chronic Assessment and Plan: - chronic, currently 157/53, stable. - continue home medications: Losartan 25 mg b.i.d.. Holding metoprolol, see above. - monitor (6) Diabetes mellitus: Qualifiers: Diabetes mellitus complication status: without complication Diabetes mellitus [employer] insulin use: without [employer] use Diabetes mellitus type: type 2 Qualified Code(s): E11.9 - Type 2 diabetes mellitus without co mplications Code(s): E11.9 - Type 2 diabetes mellitus without complications Status: Chronic Assessment and Plan: Diet controlled. Last A1c 5.9% on 03/27/2025. - hypoglycemia protocol p.r.n. (7) Anxiety: Code(s): F41.9 - Anxiety disorder, unspecified Status: Acute Assessment and Plan: Psychiatry evaluated the patient and advised duloxetine 60 mg daily instead of b.i.d., risperidone 1 mg b.i.d. not t.i.d., reduce gabapentin from 800 mg q.i.d. to 300-400 mg t.i.d., discontinue hydroxyzine, continue lorazepam 0.5 mg p.o./SL q.6-8hrs, and discontinue buspirone. Plan Acute hypoxemic respiratory failure on HFNC Severe bilateral bronchopneumonia, CT chest reviewed CXR showed bilateral infiltrates MRSA negative Continue Levaquin and Doxycycline Increase Lasix 40mg po daily to b.i.d. titrate oxygen monitor Pulmonology following Diet: Heart healthy DVT Prophylaxis: Xarelto Lines/Tubes: pIV Code Status: Full code Subjective Date/time seen: 06/29/25 08:53 Interval history: 06/28:Patient reports that she is feeling better. Blood culture pending Patient needs SNF or [employer] care 06/29: Talk with personal caregiver, will place SNF authorization once BC results. WBC mildly elevated but no signs of infection. Review of Systems Review of Systems: All systems reviewed & are unremarkable except as noted in HPI and below Exam Const: General: comfortable and no acute distress Other: , female, elderly, nontoxic appearance HENMT: Face/Nose/Sinus: Normal nares present Mouth: Yes moist mucous membranes Eyes: General: appearance normal, both eyes and all related structures Sclera: sclerae normal Pupils: Equal, round and reactive pupils present EOM: EOMs intact bilaterally Resp: Other: Faint expiratory wheeze, mild tachypnea (ambulated to the restroom just prior to exam). No crackles appreciated. Cardio: Rate: tachycardic Rhythm: abnormal rhythm (Consistent with AFib) Other: S1-S2 present without murmur, rub, ectopy GI: Other: Abdomen soft, nondistended, nontender. Normoactive bowel sounds in all quadrants. Skin: General skin exam: normal color and no rashes or lesions noted Wounds: no wounds Neuro: Cranial nerves: Yes Equal, round and reactive pupils present Speech: normal speech Motor exam (neuro): 5/5 motor strength present throughout Sensory Exam: normal sensation Other: A&O x4 Extrem: Other: Trace edema to the bilateral ankles, symmetric and nonpitting Psych: Mental Status: mental status grossly normal Affect: normal affect Other: Good insight and judgment. Objective Data Vital Signs Vital Signs: Vital Signs - 24 hr 06/28/25 09:03 06/28/25 10:00 06/28/25 11:20 Temperature Pulse Rate 123 H 77 Respiratory Rate Blood Pressure Pulse Oximetry 96 Oxygen Delivery Nasal Cannula Oxygen Flow Rate 2 06/28/25 11:59 06/28/25 12:00 06/28/25 12:04 Temperature 98.6 F Pulse Rate 86 91 Respiratory Rate 18 Blood Pressure 85/56 L Pulse Oximetry 97 Oxygen Delivery Nasal Cannula Oxygen Flow Rate 2 06/28/25 13:04 06/28/25 13:04 06/28/25 14:00 Temperature Pulse Rate 102 H Respiratory Rate Blood Pressure 96/57 L 111/61 Pulse Oximetry Oxygen Delivery Oxygen Flow Rate 06/28/25 15:58 06/28/25 16:00 06/28/25 16:00 Temperature 98.0 F Pulse Rate 114 H 113 H Respiratory Rate 20 Blood Pressure 101/60 Pulse Oximetry 98 93 Oxygen Delivery Nasal Cannula Oxygen Flow Rate 1 06/28/25 17:15 06/28/25 18:00 06/28/25 20:00 Temperature 98.5 F Pulse Rate 108 H 124 H 104 H Respiratory Rate 20 Blood Pressure 129/67 124/65 Pulse Oximetry 93 96 Oxygen Delivery Oxygen Flow Rate 06/28/25 20:00 06/28/25 20:00 06/28/25 20:23 Temperature Pulse Rate 118 H 114 H Respiratory Rate Blood Pressure Pulse Oximetry 96 Oxygen Delivery Nasal Cannula Oxygen Flow Rate 1.5 06/28/25 22:00 06/28/25 23:42 06/29/25 00:00 Temperature 98.7 F Pulse Rate 92 95 Respiratory Rate 20 Blood Pressure 107/60 Pulse Oximetry 95 95 Oxygen Delivery Nasal Cannula Oxygen Flow Rate 1.5 06/29/25 00:00 06/29/25 02:00 06/29/25 04:00 Temperature 97.4 F L Pulse Rate 91 100 94 Respiratory Rate 20 Blood Pressure 106/43 L Pulse Oximetry 90 Oxygen Delivery Oxygen Flow Rate 06/29/25 04:00 06/29/25 04:00 06/29/25 05:33 Temperature Pulse Rate 90 109 H Respiratory Rate Blood Pressure 118/64 Pulse Oximetry 90 Oxygen Delivery Nasal Cannula Oxygen Flow Rate 1.5 06/29/25 06:00 06/29/25 08:00 06/29/25 08:36 Temperature 97.7 F Pulse Rate 107 H 98 86 Respiratory Rate 20 18 Blood Pressure 109/54 L Pulse Oximetry 99 Oxygen Delivery Oxygen Flow Rate 06/29/25 08:45 Temperature Pulse Rate 104 H Respiratory Rate Blood Pressure Pulse Oximetry Oxygen Delivery Oxygen Flow Rate Intake/Output Intake/Output: Intake & Output 06/26/25 06/27/25 06/28/25 06/29/25 23:59 23:59 23:59 23:59 Intake Total 460 610 990 Output Total 200 Balance 260 610 990 Meds/Results Medications: Active Medications Generic Name Dose Route Start Last Admin Trade Name Freq PRN Reason Stop Dose Admin Acetaminophen 650 mg 06/22/25 14:49 06/27/25 15:53 Acetaminophen 325 Mg Tablet PO 650 mg Q4H PRN Administration Mild Pain (1-3) or Fever Hydrocodone Bitart/Acetaminophen 1 tab 06/23/25 08:08 06/27/25 21:41 Hydrocodone/Acetaminophen (*Crx) 5-325 Mg Tablet PO 1 tab Q8H PRN Administration Pain Benzonatate 100 mg 06/22/25 16:14 06/28/25 23:55 Benzonatate 100 Mg Capsule PO 100 mg TID PRN Administration Cough Dextrose 12.5 gm 06/22/25 15:39 Dextrose 50% 25 Gm/50 Ml Syringe IV PUSH PRN PRN Hypoglycemia Protocol Diltiazem HCl 90 mg 06/26/25 18:00 06/29/25 05:33 Diltiazem Hcl 60 Mg Tablet PO 90 mg Q6HR YUDELKA Administration Duloxetine HCl 60 mg 06/28/25 09:00 06/29/25 08:45 Duloxetine Hcl 60 Mg Capsule.Dr PO 60 mg DAILY YUDELKA Administration Furosemide 40 mg 06/26/25 17:00 06/29/25 08:46 Furosemide 40 Mg Tablet PO 40 mg BIDWM YUDELKA Administration Gabapentin 400 mg 06/27/25 06:00 06/29/25 05:33 Gabapentin 400 Mg Capsule PO 400 mg Q8HR YUDELKA Administration Glucagon 1 mg 06/22/25 15:39 Glucagon For Inj 1 Mg Vial IM PRN PRN Hypoglycemia Protocol Glucose 15 gm 06/22/25 15:39 Glucose Oral Gel 15 Gm Of Glucse In 37.5 Gm Tube PO PRN PRN Hypoglycemia Protocol Guaifenesin 1,200 mg 06/24/25 21:00 06/29/25 08:46 Guaifenesin 12 Hr 600 Mg Tabcr PO 1,200 mg Q12HR YUDELKA Administration Dextrose 1,000 mls @ 100 mls/hr 06/22/25 15:39 Dextrose 5% 1,000 Ml IVPB PRN PRN Hypoglycemia Protocol Levofloxacin/Dextrose 750 mg in 150 mls @ 100 mls/hr 06/26/25 15:00 06/28/25 17:17 Levaquin 750 Mg/D5w 150 Ml IVPB 100 mls/hr DAILY@1500 YUDELKA Administration Lorazepam 0.5 mg 06/27/25 11:35 06/28/25 20:24 Lorazepam (*Crx) 0.5 Mg Tablet PO 0.5 mg Q6H PRN Administration Anxiety Losartan Potassium 25 mg 06/22/25 17:00 06/29/25 08:45 Losartan Potassium 25 Mg Tablet PO 25 mg BID YUDELKA Administration Metoprolol Tartrate 50 mg 06/25/25 09:00 06/29/25 08:45 Metoprolol Tartrate 50 Mg Tab PO 50 mg Q12HR YUDELKA Administration Nitroglycerin 0.4 mg 06/22/25 15:39 Nitroglycerin Sl 0.4 Mg Tablet SUBLINGUAL Q5MIN PRN Chest Pain Risperidone 1 mg 06/27/25 21:00 06/28/25 20:23 Risperidone 1 Mg Tablet PO 1 mg HS YUDELKA Administration Risperidone 0.5 mg 06/28/25 09:00 06/29/25 08:45 Risperidone 0.25 Mg Tablet PO 0.5 mg DAILY YUDELKA Administration Rivaroxaban 20 mg 06/22/25 17:00 06/28/25 17:17 Rivaroxaban 20 Mg Tablet PO 20 mg DAILY@1700 YUDELKA Administration Simvastatin 20 mg 06/22/25 21:00 06/28/25 20:23 Simvastatin 20 Mg Tablet PO 20 mg HS YUDELKA Administration Umeclidinium/Vilanterol 1 puff 06/28/25 10:55 06/29/25 08:34 Umeclidinium/Vilanterol 62.5-25 Mcg Ellipta INHALATION 1 puff DAILYRT YUDELKA Administration Vitamin D 50 mcg 06/23/25 09:00 06/29/25 08:45 Cholecalciferol (Vitamin D3) 25 Mcg (1,000 Units) Tablet PO 50 mcg DAILY YUDELKA Administration Radiology Results: ITS Impressions Head CT 06/23/25 12:29 IMPRESSION: 1. No acute intracranial findings. Chest CT 06/23/25 18:21 IMPRESSION: Severe bilateral bronchopneumonia. Follow-up recommended to assess resolution. Chest X-Ray 06/28/25 07:51 IMPRESSION: 1. Improved aeration of left lung base with decreased size of effusion. Layering effusion may be present along with persisting pulmonary edema/consolidation. Labs Labs: Laboratory Results - last 24 hr 06/29/25 04:25 WBC 12.6 H RBC 4.04 L Hgb 11.6 L Hct 37.2 MCV 92.1 MCH 28.7 MCHC 31.2 L RDW 15.7 H Plt Count 260 MPV 10.8 H Sodium 143 Potassium 3.6 Chloride 109 H Carbon Dioxide 29 Anion Gap 5 BUN 25 H Creatinine 0.92 Estim Creat Clear Calc 47 Estimated GFR 60 Glucose 116 H Calcium 9.3 Total Bilirubin 0.6 AST 24 ALT 16 Alkaline Phosphatase 52 Total Protein 6.2 L Albumin 3.3 L Quality VTE Prophylaxis VTE prophylaxis: pharmacologic ordered Hospitalist [facility] Advance Care Plan I have confirmed that the patient's Advanced Care Plan is present, code status is documented, or surrogate decision maker is listed in patient medical record.: Yes Medication Reconciliation I have utilized all available resources to obtain, update and review the patients current medications (includes all prescriptions, OTC, herbals, cannabis, and nutritional supplements).: Yes
[2025-06-29 09:15] LABS: NT Pro B Type Natriuretic Pept 1690 pg/mL (19.9-100)
--- NOTE | 2025-06-29 11:02 | PCNWS ---
Weekly nutritional screen. Patient is tolerating current Heart healthy diet with adequate intake, mostly 25-80% with improvement last 48 hours. No weight loss reported. No nutritional needs at this time.
[2025-06-29] MEDS: levoFLOXacin 750 MG/D5W 150 ML 750 MG/150 ML BAG 100 MG IVPB (17:13)
[2025-06-29] MEDS: RIVAROXABAN 20 MG TABLET PO (17:13)
[2025-06-29] MEDS: SIMVASTATIN 20 MG TABLET PO (21:24)
[2025-06-30] VITALS (13 sets, daily range): BP systolic 92–113; BP diastolic 49–92; PULSE 83–139; RESP 18–20; TEMP 36.2–36.7; O2SAT 87–100
[2025-06-30 05:41] LABS: Hematocrit 38.8 % (37.0-47.0); Hemoglobin 11.9 g/dL (12.0-15.0); Mean Corpuscular HGB Conc 30.7 g/dl (32-36); Mean Corpuscular Hemoglobin 29.2 pg (26-34); Mean Corpuscular Volume 95.3 fl (80-100); Platelet Count Result 326 k/mm3 (150-375); Red Blood Count 4.07 M/mm3 (4.2-5.4); White Blood Count 13.0 K/mm3 (4.5-10.0)
[2025-06-30] MEDS: GABAPENTIN 400 MG CAPSULE PO ×3 (05:58→20:59)
[2025-06-30 06:13] LABS: Alanine Aminotransferase 19 U/L (6-35); Albumin Level 3.4 g/dL (3.5-5.1); Alkaline Phosphatase 51 U/L (38-126); Anion Gap 4 mmol/L (4-12); Aspartate Amino Transferase 25 U/L (14-36); Bilirubin,Total 0.6 mg/dL (0.2-1.3); Blood Urea Nitrogen 25 mg/dL (7-17); Calcium 9.7 mg/dL (8.4-10.2); Carbon Dioxide 32 mmol/L (22-30); Chloride 107 mmol/L (98-107); Estimated CRCL calculation 42 ml/min; Estimated Glomerular Filt Rate 52; Glucose 124 mg/dL (65-110); Potassium 3.8 mmol/L (3.4-5.0); Sodium 143 mmol/L (137-145); Total Protein 6.5 g/dL (6.3-8.2)
--- NOTE | 2025-06-30 07:54 | P.PNIM_ITS ---
Assessment and Plan Assessment and Plan (1) COPD (chronic obstructive pulmonary disease): Qualifiers: COPD type: unspecified COPD Qualified Code(s): J44.9 - Chronic obstructive pulmonary disease, unspecified Code(s): J44.9 - Chronic obstructive pulmonary disease, unspecified Status: Chronic Assessment and Plan: New shortness of breath, chronic dry cough that initially improved with nebulizer in the ED on 06 17. However has been progressively more short of breath since then. Admitted on 06/22. Initial evaluation in the ED showed diffuse expiratory wheezing, new O2 requirement, and tachypnea. Modestly improved with nebulizers. - continue levalbuterol/HR vent scheduled -complete prednisone 40 mg daily x5 days, given Solu-Medrol in the ED initially - s/p ceftriaxone and doxycycline on 06/22, allergy to erythromycin - Mucinex yudelka - continue supplemental O2 to maintain O2 sat greater than 92%, currently requiring 3L NC. No baseline requirement. Completed prednisone treatment On Levaquin until 07/02 per pulmonary (2) Atrial fibrillation with rapid ventricular response: Code(s): I48.91 - Unspecified atrial fibrillation Status: Acute Assessment and Plan: Patient arrived in NSR. Post multiple breathing treatments she developed AFib RVR, has history of AFib. Minimal response with metoprolol 5 mg IV x2. Given home metoprolol dose orally. Remains in the 120s, intermittently in the 150s. If no improvement with third dose of IV metoprolol, will transition to IV diltiazem. - admission to IMU - telemetry monitoring - Continue Cardizem and Metoprolol per cardiology, monitor HR - TSH reviewed, 1.44 on 02/23/2025 - continue Xarelto (3) Acute exacerbation of CHF (congestive heart failure): Qualifiers: Heart failure type: diastolic Qualified Code(s): I50.33 - Acute on chronic diastolic (congestive) heart failure Code(s): I50.9 - Heart failure, unspecified Status: Acute Assessment and Plan: CXR concerning for small bilateral pleural effusions with vascular changes which may represent mild vascular congestion or atypical inflammatory/infectious process. Denies any new peripheral edema or weight gain, does report she is at 3 lb of weight gain over the past few months however does not feel it is fluid related. Last echo on file in 2022 which showed EF of 55-60%, diastolic dysfunction, LV wall thickness increased, LA chamber moderately enlarged, mild pulmonary hypertension, trivial pericardial effusion. - update echo - monitor I&Os daily weights - s/p IV Lasix , now on Lasix 40mg daily increased to b.i.d. (4) Elevated troponin: Code(s): R79.89 - Other specified abnormal findings of blood chemistry Status: Acute Assessment and Plan: Likely type 2 given new hypoxia. Was 86% on room air due to COPD exacerbation. Troponin currently downtrending. No reports of chest pain. Does have some chest tightness with exertion, however shortness of breath significantly worsens with exertion as well. Now additionally in AFib RVR secondary to nebulizer treatments. EKG reviewed, no significant ST depressions or elevations. PACs and PVCs now present when compared to previous. - trend troponin - SL nitro p.r.n. (5) Hypertension: Qualifiers: Hypertension type: primary hypertension Qualified Code(s): I10 - Essential (primary) hypertension Code(s): I10 - Essential (primary) hypertension Status: Chronic Assessment and Plan: - continue home medications: Losartan 25 mg b.i.d.. Holding metoprolol, see above. - monitor (6) Diabetes mellitus: Qualifiers: Diabetes mellitus complication status: without complication Diabetes mellitus terminal superintendent insulin use: without terminal superintendent use Diabetes mellitus type: type 2 Qualified Code(s): E11.9 - Type 2 diabetes mellitus without complications Code(s): E11.9 - Type 2 diabetes mellitus without complications Status: Chronic Assessment and Plan: Diet controlled. Last A1c 5.9% on 03/27/2025. - hypoglycemia protocol p.r.n. (7) Anxiety: Code(s): F41.9 - Anxiety disorder, unspecified Status: Acute Assessment and Plan: Psychiatry evaluated the patient and advised duloxetine 60 mg daily instead of b.i.d., risperidone 1 mg b.i.d. not t.i.d., reduce gabapentin from 800 mg q.i.d. to 300-400 mg t.i.d., discontinue hydroxyzine, continue lorazepam 0.5 mg p.o./SL q.6-8hrs, and discontinue buspirone. Plan Acute hypoxemic respiratory failure on HFNC Severe bilateral bronchopneumonia, CT chest reviewed CXR showed bilateral infiltrates MRSA negative Delete Diet: Heart healthy DVT Prophylaxis: Xarelto Lines/Tubes: pIV Code Status: Full code Disposition: Needs SNF placement. SNF authorization obtained. Awaiting medical stability. If heart rate remains stable likely DC in a.m. Subjective Date/time seen: 06/30/25 07:54 Interval history: 06/28:Patient reports that she is feeling better. Blood culture pending Patient needs SNF or [facility]ci care 06/29: Talk with morning caregiver, will place SNF authorization once BC results. WBC mildly elevated but no signs of infection. 06/30: Heart rate jumped up again this morning. Restarted diltiazem. Feels better. Shortness of breath with exertion. Not much cough. About 80% better she states Review of Systems Review of Systems: All systems reviewed & are unremarkable except as noted in HPI and below Exam Const: General: comfortable and no acute distress Other: , female, elderly, nontoxic appearance HENMT: Face/Nose/Sinus: Normal nares present Mouth: Yes moist mucous membranes Eyes: General: appearance normal, both eyes and all related structures Sclera: sclerae normal Pupils: Equal, round and reactive pupils present EOM: EOMs intact bilaterally Resp: Other: Faint expiratory wheeze, mild tachypnea (ambulated to the restroom just prior to exam). No crackles appreciated. Cardio: Rate: regular rate Rhythm: abnormal rhythm (Consistent with AFib) Other: S1-S2 present without murmur, rub, ectopy GI: Other: Abdomen soft, nondistended, nontender. Normoactive bowel sounds in all quadrants. Skin: General skin exam: normal color and no rashes or lesions noted Wounds: no wounds Neuro: Cranial nerves: Yes Equal, round and reactive pupils present Speech: normal speech Motor exam (neuro): 5/5 motor strength present throughout Sensory Exam: normal sensation Other: A&O x4 Extrem: Other: Trace edema to the bilateral ankles, symmetric and nonpitting Psych: Mental Status: mental status grossly normal Affect: normal affect Other: Good insight and judgment. Objective Data Vital Signs Vital Signs: Vital Signs - 24 hr 06/29/25 08:00 06/29/25 08:00 06/29/25 08:00 Temperature 97.7 F Pulse Rate 98 94 Respiratory Rate 20 Blood Pressure 109/54 L Pulse Oximetry 99 92 Oxygen Delivery Nasal Cannula Oxygen Flow Rate 1 Fraction of Inspired Oxygen 06/29/25 08:36 06/29/25 08:45 06/29/25 10:00 Temperature Pulse Rate 86 104 H 71 Respiratory Rate 18 Blood Pressure Pulse Oximetry Oxygen Delivery Oxygen Flow Rate Fraction of Inspired Oxygen 06/29/25 11:50 06/29/25 12:00 06/29/25 16:00 Temperature 97.1 F L Pulse Rate 85 98 87 Respiratory Rate 18 Blood Pressure 102/55 L 109/47 L Pulse Oximetry 95 96 Oxygen Delivery Oxygen Flow Rate Fraction of Inspired Oxygen 06/29/25 16:00 06/29/25 20:39 06/29/25 21:26 Temperature Pulse Rate 122 H Respiratory Rate Blood Pressure Pulse Oximetry 93 96 Oxygen Delivery Nasal Cannula Nasal Cannula Oxygen Flow Rate 2 3 Fraction of Inspired Oxygen 06/30/25 00:00 06/30/25 00:00 06/30/25 04:00 Temperature Pulse Rate 87 122 H 99 Respiratory Rate 18 Blood Pressure Pulse Oximetry 96 Oxygen Delivery Nasal Cannula Oxygen Flow Rate 3 Fraction of Inspired Oxygen 60 06/30/25 06:00 06/30/25 07:35 06/30/25 07:40 Temperature 97.1 F L Pulse Rate 97 133 H 126 H Respiratory Rate 18 Blood Pressure 94/53 L 111/49 L 106/66 Pulse Oximetry 87 L Oxygen Delivery Oxygen Flow Rate Fraction of Inspired Oxygen Intake/Output Intake/Output: Intake & Output 06/27/25 06/28/25 06/29/25 06/30/25 23:59 23:59 23:59 23:59 Intake Total 610 1140 810 200 Balance 610 1140 810 200 Meds/Results Medications: Active Medications Generic Name Dose Route Start Last Admin Trade Name Freq PRN Reason Stop Dose Admin Acetaminophen 650 mg 06/22/25 14:49 06/27/25 15:53 Acetaminophen 325 Mg Tablet PO 650 mg Q4H PRN Administration Mild Pain (1-3) or Fever Hydrocodone Bitart/Acetaminophen 1 tab 06/23/25 08:08 06/27/25 21:41 Hydrocodone/Acetaminophen (*Crx) 5-325 Mg Tablet PO 1 tab Q8H PRN Administration Pain Benzonatate 100 mg 06/22/25 16:14 06/28/25 23:55 Benzonatate 100 Mg Capsule PO 100 mg TID PRN Administration Cough Dextrose 12.5 gm 06/22/25 15:39 Dextrose 50% 25 Gm/50 Ml Syringe IV PUSH PRN PRN Hypoglycemia Protocol Diltiazem HCl 90 mg 06/30/25 07:50 Diltiazem Hcl 30 Mg Tablet PO Q6HR YUDELKA Duloxetine HCl 60 mg 06/28/25 09:00 06/29/25 08:45 Duloxetine Hcl 60 Mg Capsule.Dr PO 60 mg DAILY YUDELKA Administration Furosemide 40 mg 06/26/25 17:00 06/29/25 17:13 Furosemide 40 Mg Tablet PO 40 mg BIDWM YUDELKA Administration Gabapentin 400 mg 06/27/25 06:00 06/30/25 05:58 Gabapentin 400 Mg Capsule PO 400 mg Q8HR YUDELKA Administration Glucagon 1 mg 06/22/25 15:39 Glucagon For Inj 1 Mg Vial IM PRN PRN Hypoglycemia Protocol Glucose 15 gm 06/22/25 15:39 Glucose Oral Gel 15 Gm Of Glucse In 37.5 Gm Tube PO PRN PRN Hypoglycemia Protocol Guaifenesin 1,200 mg 06/24/25 21:00 06/29/25 21:23 Guaifenesin 12 Hr 600 Mg Tabcr PO 1,200 mg Q12HR YUDELKA Administration Dextrose 1,000 mls @ 100 mls/hr 06/22/25 15:39 Dextrose 5% 1,000 Ml IVPB PRN PRN Hypoglycemia Protocol Levofloxacin/Dextrose 750 mg in 150 mls @ 100 mls/hr 06/26/25 15:00 06/29/25 17:13 Levaquin 750 Mg/D5w 150 Ml IVPB 07/02/25 16:29 100 mls/hr DAILY@1500 YUDELKA Administration Lorazepam 0.5 mg 06/27/25 11:35 06/28/25 20:24 Lorazepam (*Crx) 0.5 Mg Tablet PO 0.5 mg Q6H PRN Administration Anxiety Losartan Potassium 25 mg 06/22/25 17:00 06/29/25 17:13 Losartan Potassium 25 Mg Tablet PO 25 mg BID YUDELKA Administration Metoprolol Tartrate 50 mg 06/25/25 09:00 06/29/25 21:26 Metoprolol Tartrate 50 Mg Tab PO 50 mg Q12HR YUDELKA Administration Nitroglycerin 0.4 mg 06/22/25 15:39 Nitroglycerin Sl 0.4 Mg Tablet SUBLINGUAL Q5MIN PRN Chest Pain Risperidone 1 mg 12/17/25 21:00 06/29/25 21:24 Risperidone 1 Mg Tablet PO 1 mg HS YUDELKA Administration Risperidone 0.5 mg 06/28/25 09:00 06/29/25 08:45 Risperidone 0.25 Mg Tablet PO 0.5 mg DAILY YUDELKA Administration Rivaroxaban 20 mg 06/22/25 17:00 06/29/25 17:13 Rivaroxaban 20 Mg Tablet PO 20 mg DAILY@1700 YUDELKA Administration Simvastatin 20 mg 06/22/25 21:00 06/29/25 21:24 Simvastatin 20 Mg Tablet PO 20 mg HS YUDELKA Administration Umeclidinium/Vilanterol 1 puff 06/28/25 10:55 06/29/25 08:34 Umeclidinium/Vilanterol 62.5-25 Mcg Ellipta INHALATION 1 puff DAILYRT YUDELKA Administration Vitamin D 50 mcg 06/23/25 09:00 06/29/25 08:45 Cholecalciferol (Vitamin D3) 25 Mcg (1,000 Units) Tablet PO 50 mcg DAILY YUDELKA Administration Radiology Results: ITS Impressions Head CT 06/23/25 12:29 IMPRESSION: 1. No acute intracranial findings. Chest CT 06/23/25 18:21 IMPRESSION: Severe bilateral bronchopneumonia. Follow-up recommended to assess resolution. Chest X-Ray 06/28/25 07:51 IMPRESSION: 1. Improved aeration of left lung base with decreased size of effusion. Layering effusion may be present along with persisting pulmonary edema/consolidation. Labs Labs: Laboratory Results - last 24 hr 06/29/25 06/30/25 04:25 04:59 WBC 13.0 H RBC 4.07 L Hgb 11.9 L Hct 38.8 MCV 95.3 MCH 29.2 MCHC 30.7 L RDW 15.9 H Plt Count 326 MPV 11.0 H Sodium 143 Potassium 3.8 Chloride 107 Carbon Dioxide 32 H Anion Gap 4 BUN 25 H Creatinine 1.04 H Estim Creat Clear Calc 42 Estimated GFR 52 L Glucose 124 H Calcium 9.7 Total Bilirubin 0.6 AST 25 ALT 19 Alkaline Phosphatase 51 NT-Pro-B Natriuret Pep 1690 H Total Protein 6.5 Albumin 3.4 L Quality VTE Prophylaxis VTE prophylaxis: pharmacologic ordered Hospitalist MIPS Advance Care Plan I have confirmed that the patient's Advanced Care Plan is present, code status is documented, or surrogate decision maker is listed in patient medical record.: Yes Medication Reconciliation I have utilized all available resources to obtain, update and review the patients current medications (includes all prescriptions, OTC, herbals, cannabis, and nutritional supplements).: Yes
[2025-06-30] MEDS: UMECLIDINIUM/VILANTEROL 62.5-25 MCG ELLIPTA 1 PUFF INHALATION (07:59)
[2025-06-30] MEDS: ACETAMINOPHEN 325 MG TABLET 650 MG PO (08:31)
[2025-06-30] MEDS: LOSARTAN POTASSIUM 25 MG TABLET PO ×2 (08:31→16:18)
[2025-06-30] MEDS: DULoxetine HCL 60 MG CAPSULE.DR PO (08:33)
[2025-06-30] MEDS: FUROSEMIDE 40 MG TABLET PO ×2 (08:33→16:18)
[2025-06-30] MEDS: guaiFENesin 12 HR 600 MG TABCR 1200 MG PO ×2 (08:33→20:59)
[2025-06-30] MEDS: CHOLECALCIFEROL (VITAMIN D3) 25 MCG (1,000 UNITS) TABLET 50 MCG PO (08:33)
[2025-06-30] MEDS: METOPROLOL TARTRATE 50 MG TAB PO ×2 (08:34→20:59)
[2025-06-30] MEDS: HYDROcodone/acetaminophen (*CRX) 5-325 MG TABLET 1 TAB PO ×2 (10:30→19:30)
[2025-06-30] MEDS: levoFLOXacin 750 MG/D5W 150 ML 750 MG/150 ML BAG 100 MG IVPB (16:14)
[2025-06-30] MEDS: RIVAROXABAN 20 MG TABLET PO (16:18)
[2025-06-30] MEDS: SIMVASTATIN 20 MG TABLET PO (20:59)
[2025-07-01] VITALS (12 sets, daily range): BP systolic 86–120; BP diastolic 49–77; PULSE 61–114; RESP 16–18; TEMP 36.4–36.5; O2SAT 94–100
[2025-07-01] MEDS: GABAPENTIN 400 MG CAPSULE PO ×3 (05:07→20:18)
[2025-07-01] MEDS: HYDROcodone/acetaminophen (*CRX) 5-325 MG TABLET 1 TAB PO ×2 (06:00→14:37)
[2025-07-01 06:29] LABS: Hematocrit 34.9 % (37.0-47.0); Hemoglobin 10.7 g/dL (12.0-15.0); Immature Granulocyte Percent A 0.6 % (0-0.5); Lymphocytes Absolute Auto 1.93 K/mm3 (0.9-3.2); Mean Corpuscular HGB Conc 30.7 g/dl (32-36); Mean Corpuscular Hemoglobin 28.5 pg (26-34); Mean Corpuscular Volume 93.1 fl (80-100); Nucleated Red Blood Cells Absolute Auto 0.000 K/mm3 (0.0-0.012); Nucleated Red Blood Cells Perc 0.0 % (0.0-0.2); Platelet Count Result 257 k/mm3 (150-375); Red Blood Count 3.75 M/mm3 (4.2-5.4); White Blood Count 10.4 K/mm3 (4.5-10.0)
[2025-07-01 06:54] LABS: Alanine Aminotransferase 18 U/L (6-35); Albumin Level 3.3 g/dL (3.5-5.1); Alkaline Phosphatase 50 U/L (38-126); Anion Gap 6 mmol/L (4-12); Aspartate Amino Transferase 25 U/L (14-36); Bilirubin,Total 0.5 mg/dL (0.2-1.3); Blood Urea Nitrogen 29 mg/dL (7-17); Calcium 9.8 mg/dL (8.4-10.2); Carbon Dioxide 28 mmol/L (22-30); Chloride 106 mmol/L (98-107); Estimated CRCL calculation 42 ml/min; Estimated Glomerular Filt Rate 52; Glucose 114 mg/dL (65-110); Magnesium 2.2 mg/dL (1.6-2.3); Potassium 3.7 mmol/L (3.4-5.0); Sodium 140 mmol/L (137-145); Total Protein 6.1 g/dL (6.3-8.2)
[2025-07-01] MEDS: LOSARTAN POTASSIUM 25 MG TABLET PO (08:13)
[2025-07-01] MEDS: CHOLECALCIFEROL (VITAMIN D3) 25 MCG (1,000 UNITS) TABLET 50 MCG PO (08:13)
[2025-07-01] MEDS: FUROSEMIDE 40 MG TABLET PO (08:13)
[2025-07-01] MEDS: METOPROLOL TARTRATE 50 MG TAB PO ×2 (08:13→20:18)
[2025-07-01] MEDS: DULoxetine HCL 60 MG CAPSULE.DR PO (08:13)
[2025-07-01] MEDS: guaiFENesin 12 HR 600 MG TABCR 1200 MG PO ×2 (08:13→20:18)
--- NOTE | 2025-07-01 09:17 | P.DS_ITS ---
DS: Admitting Diagnosis Discharge Date 07/01/2025 Admitting Diagnosis SOB DS: Discharge Diagnosis Discharge Diagnosis (1) COPD (chronic obstructive pulmonary disease): Qualifiers: COPD type: unspecified COPD Qualified Code(s): J44.9 - Chronic obstructive pulmonary disease, unspecified Code(s): J44.9 - Chronic obstructive pulmonary disease, unspecified Status: Chronic Assessment and Plan: New shortness of breath, chronic dry cough that initially improved with nebulizer in the ED on 06 17. However has been progressively more short of breath since then. Admitted on 06/22. Initial evaluation in the ED showed diffuse expiratory wheezing, new O2 requirement, and tachypnea. Modestly improved with nebulizers. - continue levalbuterol/HR vent scheduled -complete prednisone 40 mg daily x5 days, given Solu-Medrol in the ED initially - s/p ceftriaxone and doxycycline on 06/22, allergy to erythromycin - Mucinex yudelka - continue supplemental O2 to maintain O2 sat greater than 92%, currently requiring 3L NC. No baseline requirement. Completed prednisone treatment On Levaquin until 07/02 per pulmonary (2) Atrial fibrillation with rapid ventricular response: Code(s): I48.91 - Unspecified atrial fibrillation Status: Acute Assessment and Plan: Patient arrived in NSR. Post multiple breathing treatments she developed AFib RVR, has history of AFib. Minimal response with metoprolol 5 mg IV x2. Given home metoprolol dose orally. Remains in the 120s, intermittently in the 150s. If no improvement with third dose of IV metoprolol, will transition to IV diltiazem. - admission to IMU - telemetry monitoring - Continue Cardizem and Metoprolol per cardiology, monitor HR - TSH reviewed, 1.44 on 02/23/2025 - continue Xarelto (3) Acute exacerbation of CHF (congestive heart failure): Qualifiers: Heart failure type: diastolic Qualified Code(s): I50.33 - Acute on chronic diastolic (congestive) heart failure Code(s): I50.9 - Heart failure, unspecified Status: Acute Assessment and Plan: CXR concerning for small bilateral pleural effusions with vascular changes which may represent mild vascular congestion or atypical inflammatory/infectious proc ess. Denies any new peripheral edema or weight gain, does report she is at 3 lb of weight gain over the past few months however does not feel it is fluid related. Last echo on file in 2022 which showed EF of 55-60%, diastolic dysfunction, LV wall thickness increased, LA chamber moderately enlarged, mild pulmonary hypertension, trivial pericardial effusion. - update echo - monitor I&Os daily weights - s/p IV Lasix , now on Lasix 40mg daily increased to b.i.d. (4) Elevated troponin: Code(s): R79.89 - Other specified abnormal findings of blood chemistry Status: Acute Assessment and Plan: Likely type 2 given new hypoxia. Was 86% on room air due to COPD exacerbation. Troponin currently downtrending. No reports of chest pain. Does have some chest tightness with exertion, however shortness of breath significantly worsens with exertion as well. Now additionally in AFib RVR secondary to nebulizer treatments. EKG reviewed, no significant ST depressions or elevations. PACs and PVCs now present when compared to previous. - trend troponin - SL nitro p.r.n. (5) Hypertension: Qualifiers: Hypertension type: primary hypertension Qualified Code(s): I10 - Essential (primary) hypertension Code(s): I10 - Essential (primary) hypertension Status: Chronic Assessment and Plan: - continue home medications: Losartan 25 mg b.i.d.. Holding metoprolol, see above. - monitor (6) Diabetes mellitus: Qualifiers: Diabetes mellitus type: type 2 Diabetes mellitus ocean transportation intermediary insulin use: without ocean transportation intermediary use Diabetes mellitus complication status: without complication Qualified Code(s): E11.9 - Type 2 diabetes mellitus without complications Code(s): E11.9 - Type 2 diabetes mellitus without complications Status: Chronic Assessment and Plan: Diet controlled. Last A1c 5.9% on 03/27/2025. - hypoglycemia protocol p.r.n. (7) Anxiety: Code(s): F41.9 - Anxiety disorder, unspecified Status: Acute Assessment and Plan: Psychiatry evaluated the patient and advised duloxetine 60 mg daily instead of b.i.d., risperidone 1 mg b.i.d. not t.i.d., reduce gabapentin from 800 mg q.i.d. to 300-400 mg t.i.d., discontinue hydroxyzine, continue lorazepam 0.5 mg p.o./SL q.6-8hrs, and discontinue buspirone. Plan Acute hypoxemic respiratory failure on HFNC Severe bilateral bronchopneumonia, CT chest reviewed CXR showed bilateral infiltrates MRSA negative Delete Diet: Heart healthy DVT Prophylaxis: Xarelto Lines/Tubes: pIV Code Status: Full code Disposition: Needs SNF placement. SNF authorization obtained. Awaiting medical stability. If heart rate remains stable likely DC in a.m. DS: Summary Hospital Course Reason for hospitalization: Shortness of breath Hospital Course: [age] year years old female with history of COPD, history of heart failure was admitted with complaints of having shortness of breath. Patient was found to have atrial fibrillation with rapid ventricular response and heart failure. Patient was treated with diuretics and heart rate was stabilized. Patient was continued treatment for COPD. Patient did not have any complication during the stay in the hospital. Today patient being greater discharged home stable condition. Follow workup pulmonary cardiology and primary care scheduled. Status at Discharge Cognitive/behavioral status at discharge: Stable Time Spent with Patient Time attestation: Total time spent providing and/or coordinating discharge services: 30 minutes Exam Const: General: comfortable and no acute distress Other: , female, elderly, nontoxic appearance HENMT: Face/Nose/Sinus: Normal nares present Mouth: Yes moist mucous membranes Eyes: General: appearance normal, both eyes and all related structures Sclera: sclerae normal Pupils: Equal, round and reactive pupils present EOM: EOMs intact bilaterally Resp: Other: Faint expiratory wheeze, mild tachypnea (ambulated to the restroom just prior to exam). No crackles appreciated. Cardio: Rate: regular rate and tachycardic Rhythm: abnormal rhythm (Consistent with AFib) Other: S1-S2 present without murmur, rub, ectopy GI: Other: Abdomen soft, nondistended, nontender. Normoactive bowel sounds in all quadrants. Skin: General skin exam: normal color and no rashes or lesions noted Wounds: no wounds Neuro: Cranial nerves: Yes Equal, round and reactive pupils present Speech: normal speech Motor exam (neuro): 5/5 motor strength present throughout Sensory Exam: normal sensation Other: A&O x4 Extrem: Other: Trace edema to the bilateral ankles, symmetric and nonpitting Psych: Mental Status: mental status grossly normal Affect: normal affect Other: Good insight and judgment. DS: Data Data Completed and Pending Labs on day of discharge: Labs from last 24 hours 07/01/25 05:51 WBC 10.4 H RBC 3.75 L Hgb 10.7 L Hct 34.9 L MCV 93.1 MCH 28.5 MCHC 30.7 L RDW 15.7 H Plt Count 257 MPV 11.0 H Immature Gran % (Auto) 0.6 H Neut % (Auto) 69.8 Lymph % (Auto) 18.6 Kane % (Auto) 8.5 Eos % (Auto) 2.0 Baso % (Auto) 0.5 Lymph # (Auto) 1.93 Kane # (Auto) 0.9 H Eos # (Auto) 0.2 Baso # (Auto) 0.1 Abs Immat Gran (auto) 0.06 H Absolute Neuts (auto) 7.3 H Absolute Nucleated RBC 0.000 Nucleated RBC % 0.0 Sodium 140 Potassium 3.7 Chloride 106 Carbon Dioxide 28 Anion Gap 6 BUN 29 H Creatinine 1.05 H Estim Creat Clear Calc 42 Estimated GFR 52 L Glucose 114 H Calcium 9.8 Magnesium 2.2 Total Bilirubin 0.5 AST 25 ALT 18 Alkaline Phosphatase 50 Total Protein 6.1 L Albumin 3.3 L Preliminary micro results at discharge 06/27/25 18:48 Blood Culture - Preliminary Blood 06/27/25 19:02 Blood Culture - Preliminary Blood Discharge Plan Discharge Attending physician on discharge: Jordan Gorman Consulting providers: Cristiano John; Diego Hernandez; Satish Steele Discharging Clinician: Jordan Gorman Patient Disposition: Home Activity: as tolerated Diet: as tolerated and heart healthy Patient Instructions: Antibiotic Form Patient Language: Moldovan Stand Alone Forms: General Discharge Information Follow-up/Referrals: Diego Mina MD [Primary Care Provider, Internal Medicine] Diego Hernandez MD [Physician, Pulmonology] Discharge Medications: New umeclidinium-vilanterol [Anoro Ellipta] 62.5-25 mcg/actuation Blister With Device 1 inh inhalation DAILYRT Qty: 1 0RF diltiazem HCl 30 mg Tablet 90 mg PO Q6HR Qty: 120 0RF metoprolol tartrate 50 mg Tablet 50 mg PO Q12HR Qty: 60 0RF furosemide 40 mg Tablet 40 mg PO BIDWM Qty: 60 0RF duloxetine 60 mg Capsule,Delayed Release(Dr/Ec) 60 mg PO DAILY Qty: 30 0RF levofloxacin 250 mg tablet 250 mg PO DAILY Qty: 7 0RF Continued cholecalciferol (vitamin D3) 50 mcg (2,000 unit) capsule See Rx Instructions .ROUTE .COMPLEX Qty: 90 3RF Dose Instruction: TAKE 1 CAPSULE BY MOUTH DAILY Rx Instructions: TAKE 1 CAPSULE BY MOUTH DAILY gabapentin 800 mg tablet See Rx Instructions .ROUTE .COMPLEX Qty: 360 2RF Dose Instruction: TAKE 1 TABLET BY MOUTH FOUR TIMES DAILY Rx Instructions: TAKE 1 TABLET BY MOUTH FOUR TIMES DAILY risperidone 1 mg tablet 1 mg PO TID prednisone 20 mg tablet 40 mg PO DAILY 4 Days Qty: 8 0RF losartan 25 mg tablet 25 mg PO BID hydrocodone-acetaminophen 5-325 mg tablet 1 tablet PO Q8H PRN (Reason: pain) rivaroxaban [Xarelto] 20 mg PO DAILY ipratropium-albuterol 0.5 mg-3 mg(2.5 mg base)/3 mL solution for nebulization 3 ml inhalation Q6H PRN (Reason: shortness of breath or wheezing) Qty: 360 1RF benzonatate 100 mg capsule 100 mg PO TID PRN (Reason: Cough) Qty: 90 1RF budesonide 0.5 mg/2 mL suspension for nebulization 0.5 mg inhalation DAILY Qty: 60 5RF Rx Instructions: rinse and spit simvastatin 20 mg tablet See Rx Instructions .ROUTE .COMPLEX Qty: 90 2RF Dose Instruction: TAKE 1 TABLET BY MOUTH DAILY Rx Instructions: TAKE 1 TABLET BY MOUTH DAILY Discontinued duloxetine [Cymbalta] 60 mg capsule,delayed release(DR/EC) 60 mg PO BID Rx Instructions: TAKE 1 CAPSULE PO BID; metoprolol tartrate 50 mg tablet 25 mg PO BID Date of admission: 06/23/25 13:56 Primary Care Provider: Diego Mina Admitting Provider: Carlos Enrique Zelaya Attending physician on admission: Carlos Enrique Zelaya Condition: Stable Quality VTE Prophylaxis VTE prophylaxis: pharmacologic ordered
--- NOTE | 2025-07-01 12:06 | PCRCNOTE ---
Window of time for administration has passed. See next scheduled administration.
--- NOTE | 2025-07-01 14:01 | PCOTNOTE ---
Attempted to see patient this pm. Upon entering, patient had called nurse for pain medicine due to increased back pain. Patient already completed ADLs this date. Pt reported not needing any help with ADLs this am and also reported she's supposed to discharge tomorrow.
[2025-07-01] MEDS: levoFLOXacin 750 MG/D5W 150 ML 750 MG/150 ML BAG 100 MG IVPB (14:39)
[2025-07-01] MEDS: RIVAROXABAN 20 MG TABLET PO (17:17)
[2025-07-01] MEDS: LORazepam (*CRX) 0.5 MG TABLET PO (20:18)
[2025-07-01] MEDS: SIMVASTATIN 20 MG TABLET PO (20:18)
[2025-07-02] VITALS (13 sets, daily range): BP systolic 99–125; BP diastolic 51–70; PULSE 83–134; RESP 14–18; TEMP 36.1–36.4; O2SAT 92–100
[2025-07-02] MEDS: HYDROcodone/acetaminophen (*CRX) 5-325 MG TABLET 1 TAB PO ×2 (04:16→12:47)
[2025-07-02] MEDS: GABAPENTIN 400 MG CAPSULE PO (04:59)
[2025-07-02] MEDS: ALBUTEROL SULFATE (*SP) AEROSOL 1 PUFF 2 PUFF INHALATION (06:41)
[2025-07-02] MEDS: METOPROLOL TARTRATE 50 MG TAB PO (08:23)
[2025-07-02] MEDS: DULoxetine HCL 60 MG CAPSULE.DR PO (08:24)
[2025-07-02] MEDS: CHOLECALCIFEROL (VITAMIN D3) 25 MCG (1,000 UNITS) TABLET 50 MCG PO (08:24)
[2025-07-02] MEDS: guaiFENesin 12 HR 600 MG TABCR 1200 MG PO (08:24)
--- NOTE | 2025-07-02 09:15 | P.PNIM_ITS ---
Assessment and Plan Assessment and Plan (1) COPD (chronic obstructive pulmonary disease): Qualifiers: COPD type: unspecified COPD Qualified Code(s): J44.9 - Chronic obstructive pulmonary disease, unspecified Code(s): J44.9 - Chronic obstructive pulmonary disease, unspecified Status: Chronic Assessment and Plan: New shortness of breath, chronic dry cough that initially improved with nebulizer in the ED on 06 17. However has been progressively more short of breath since then. Admitted on 06/22. Initial evaluation in the ED showed diffuse expiratory wheezing, new O2 requirement, and tachypnea. Modestly improved with nebulizers. - continue levalbuterol/HR vent scheduled -complete prednisone 40 mg daily x5 days, given Solu-Medrol in the ED initially - s/p ceftriaxone and doxycycline on 06/22, allergy to erythromycin - Mucinex yudelka - continue supplemental O2 to maintain O2 sat greater than 92%, currently requiring 3L NC. No baseline requirement. Completed prednisone treatment On Levaquin until 07/02 per pulmonary (2) Atrial fibrillation with rapid ventricular response: Code(s): I48.91 - Unspecified atrial fibrillation Status: Acute Assessment and Plan: Patient arrived in [facility]R. Post multiple breathing treatments she developed AFib RVR, has history of AFib. Minimal response with metoprolol 5 mg IV x2. Given home metoprolol dose orally. Remains in the 120s, intermittently in the 150s. If no improvement with third dose of IV metoprolol, will transition to IV diltiazem. - admission to IMU - telemetry monitoring - Continue Cardizem and Metoprolol per cardiology, monitor HR - TSH reviewed, 1.44 on 02/23/2025 - continue Xarelto (3) Acute exacerbation of CHF (congestive heart failure): Qualifiers: Heart failure type: diastolic Qualified Code(s): I50.33 - Acute on chronic diastolic (congestive) heart failure Code(s): I50.9 - Heart failure, unspecified Status: Acute Assessment and Plan: CXR concerning for small bilateral pleural effusions with vascular changes which may represent mild vascular congestion or atypical inflammatory/infectious process. Denies any new peripheral edema or weight gain, does report she is at 3 lb of weight gain over the past few months however does not feel it is fluid related. Last echo on file in 2022 which showed EF of 55-60%, diastolic dysfunction, LV wall thickness increased, LA chamber moderately enlarged, mild pulmonary hypertension, trivial pericardial effusion. - update echo - monitor I&Os daily weights - s/p IV Lasix , now on Lasix 40mg daily increased to b.i.d. (4) Elevated troponin: Code(s): R79.89 - Other specified abnormal findings of blood chemistry Status: Acute Assessment and Plan: Likely type 2 given new hypoxia. Was 86% on room air due to COPD exacerbation. Troponin currently downtrending. No reports of chest pain. Does have some chest tightness with exertion, however shortness of breath significantly worsens with exertion as well. Now additionally in AFib RVR secondary to nebulizer treatments. EKG reviewed, no significant ST depressions or elevations. PACs and PVCs now present when compared to previous. - trend troponin - SL nitro p.r.n. (5) Hypertension: Qualifiers: Hypertension type: primary hypertension Qualified Code(s): I10 - Essential (primary) hypertension Code(s): I10 - Essential (primary) hypertension Status: Chronic Assessment and Plan: - continue home medications: Losartan 25 mg b.i.d.. Holding metoprolol, see above. - monitor (6) Diabetes mellitus: Qualifiers: Diabetes mellitus type: type 2 Diabetes mellitus halfway insulin use: without buttermaker use Diabetes mellitus complication status: without complication Qualified Code(s): E11.9 - Type 2 diabetes mellitus without complications Code(s): E11.9 - Type 2 diabetes mellitus without complications Status: Chronic Assessment and Plan: Diet controlled. Last A1c 5.9% on 03/27/2025. - hypoglycemia protocol p.r.n. (7) Anxiety: Code(s): F41.9 - Anxiety disorder, unspecified Status: Acute Assessment and Plan: Psychiatry evaluated the patient and advised duloxetine 60 mg daily instead of b.i.d., risperidone 1 mg b.i.d. not t.i.d., reduce gabapentin from 800 mg q.i.d. to 300-400 mg t.i.d., discontinue hydroxyzine, continue lorazepam 0.5 mg p.o./SL q.6-8hrs, and discontinue buspirone. Plan Acute hypoxemic respiratory failure on HFNC Severe bilateral bronchopneumonia, CT chest reviewed CXR showed bilateral infiltrates MRSA negative Delete Diet: Heart healthy DVT Prophylaxis: Xarelto Lines/Tubes: pIV Code Status: Full code Disposition: Needs SNF placement. SNF authorization obtained. Awaiting medical stability. If heart rate remains stable likely DC in a.m. Subjective Date/time seen: 07/02/25 09:15 Interval history: Patient was seen during the morning rounds today. Patient is feeling better and wants to go today. No shortness of breath or chest pain. Review of Systems Review of Systems: All systems reviewed & are unremarkable except as noted in HPI and below Exam Const: General: comfortable and no acute distress Other: , female, elderly, nontoxic appearance HENMT: Face/Nose/Sinus: Normal nares present Mouth: Yes moist mucous membranes Eyes: General: appearance normal, both eyes and all related structures Sclera: sclerae normal Pupils: Equal, round and reactive pupils present EOM: EOMs intact bilaterally Resp: Other: Faint expiratory wheeze, mild tachypnea (ambulated to the restroom just prior to exam). No crackles appreciated. Cardio: Rate: regular rate and tachycardic Rhythm: abnormal rhythm (Consistent with AFib) Other: S1-S2 present without murmur, rub, ectopy GI: Other: Abdomen soft, nondistended, nontender. Normoactive bowel sounds in all quadrants. Skin: General skin exam: normal color and no rashes or lesions noted Wounds: no wounds Neuro: Cranial nerves: Yes Equal, round and reactive pupils present Speech: normal speech Motor exam (neuro): 5/5 motor strength present throughout Sensory Exam: normal sensation Other: A&O x4 Extrem: Other: Trace edema to the bilateral ankles, symmetric and nonpitting Psych: Mental Status: mental status grossly normal Affect: normal affect Other: Good insight and judgment. Objective Data Vital Signs Vital Signs: Vital Signs - 24 hr 07/01/25 12:00 07/01/25 14:00 07/01/25 16:00 Temperature 36.4 C Pulse Rate 97 82 108 H Respiratory Rate 16 Blood Pressure 97/77 L Pulse Oximetry 96 Oxygen Delivery Oxygen Flow Rate 07/01/25 17:28 07/01/25 18:35 07/01/25 20:00 Temperature Pulse Rate 114 H Respiratory Rate Blood Pressure 86/58 L 93/49 L Pulse Oximetry 98 Oxygen Delivery Nasal Cannula Oxygen Flow Rate 1 07/01/25 20:00 07/01/25 21:28 07/02/25 00:00 Temperature 36.5 C Pulse Rate 114 H 61 110 H Respiratory Rate 16 Blood Pressure 120/70 Pulse Oximetry 98 Oxygen Delivery Oxygen Flow Rate 07/02/25 04:00 07/02/25 06:00 07/02/25 06:45 Temperature 36.4 C L Pulse Rate 116 H 93 83 Respiratory Rate 17 14 Blood Pressure 125/70 Pulse Oximetry 99 100 Oxygen Delivery High Flow Nasal Cannula Oxygen Flow Rate 1 07/02/25 06:45 07/02/25 08:00 07/02/25 08:10 Temperature Pulse Rate 83 134 H Respiratory Rate 14 Blood Pressure 99/51 L Pulse Oximetry Oxygen Delivery Oxygen Flow Rate 07/02/25 08:10 07/02/25 08:23 Temperature Pulse Rate 123 H Respiratory Rate Blood Pressure Pulse Oximetry 100 Oxygen Delivery Nasal Cannula Oxygen Flow Rate 1 Intake/Output Intake/Output: Intake & Output 06/29/25 06/30/25 07/01/25 07/02/25 23:59 23:59 23:59 23:59 Intake Total 960 1330 1460 740 Balance 960 1330 1460 740 Meds/Results Medications: Active Medications Generic Name Dose Route Start Last Admin Trade Name Freq PRN Reason Stop Dose Admin Acetaminophen 650 mg 06/22/25 14:49 06/30/25 08:31 Acetaminophen 325 Mg Tablet PO 650 mg Q4H PRN Administration Mild Pain (1-3) or Fever Hydrocodone Bitart/Acetaminophen 1 tab 06/23/25 08:08 07/02/25 04:16 Hydrocodone/Acetaminophen (*Crx) 5-325 Mg Tablet PO 1 tab Q8H PRN Administration Pain Albuterol 2 puff 07/01/25 20:55 07/02/25 06:41 Albuterol Sulfate (*Sp) Aerosol 1 Puff INHALATION 2 puff Q6HRT PRN Administration Shortness Of Breath Benzonatate 100 mg 06/22/25 16:14 06/28/25 23:55 Benzonatate 100 Mg Capsule PO 100 mg TID PRN Administration Cough Dextrose 12.5 gm 06/22/25 15:39 Dextrose 50% 25 Gm/50 Ml Syringe IV PUSH PRN PRN Hypoglycemia Protocol Diltiazem HCl 60 mg 07/02/25 03:20 07/02/25 03:34 Diltiazem Hcl 60 Mg Tablet PO 60 mg Q6HR YUDELKA Administration Duloxetine HCl 60 mg 06/28/25 09:00 07/02/25 08:24 Duloxetine Hcl 60 Mg Capsule.Dr PO 60 mg DAILY YUDELKA Administration Furosemide 40 mg 06/26/25 17:00 07/01/25 17:26 Furosemide 40 Mg Tablet PO Not Given BIDWM YUDELKA Gabapentin 400 mg 06/27/25 06:00 07/02/25 04:59 Gabapentin 400 Mg Capsule PO 400 mg Q8HR YUDELKA Administration Glucagon 1 mg 06/22/25 15:39 Glucagon For Inj 1 Mg Vial IM PRN PRN Hypoglycemia Protocol Glucose 15 gm 06/22/25 15:39 Glucose Oral Gel 15 Gm Of Glucse In 37.5 Gm Tube PO PRN PRN Hypoglycemia Protocol Guaifenesin 1,200 mg 06/24/25 21:00 07/02/25 08:24 Guaifenesin 12 Hr 600 Mg Tabcr PO 1,200 mg Q12HR YUDELKA Administration Dextrose 1,000 mls @ 100 mls/hr 06/22/25 15:39 Dextrose 5% 1,000 Ml IVPB PRN PRN Hypoglycemia Protocol Levofloxacin/Dextrose 750 mg in 150 mls @ 100 mls/hr 06/26/25 15:00 07/01/25 16:40 Levaquin 750 Mg/D5w 150 Ml IVPB 07/02/25 16:29 Infused DAILY@1500 YUDELKA Infusion Lorazepam 0.5 mg 06/27/25 11:35 07/01/25 20:18 Lorazepam (*Crx) 0.5 Mg Tablet PO 0.5 mg Q6H PRN Administration Anxiety Losartan Potassium 25 mg 06/22/25 17:00 07/01/25 17:26 Losartan Potassium 25 Mg Tablet PO Not Given BID YUDELKA Metoprolol Tartrate 50 mg 06/25/25 09:00 07/02/25 08:23 Metoprolol Tartrate 50 Mg Tab PO 50 mg Q12HR YUDELKA Administration Nitroglycerin 0.4 mg 06/22/25 15:39 Nitroglycerin Sl 0.4 Mg Tablet SUBLINGUAL Q5MIN PRN Chest Pain Risperidone 1 mg 06/27/25 21:00 07/01/25 20:18 Risperidone 1 Mg Tablet PO 1 mg HS YUDELKA Administration Risperidone 0.5 mg 06/28/25 09:00 07/02/25 08:24 Risperidone 0.25 Mg Tablet PO 0.5 mg DAILY YUDELKA Administration Rivaroxaban 20 mg 06/22/25 17:00 07/01/25 17:17 Rivaroxaban 20 Mg Tablet PO 20 mg DAILY@1700 YUDELKA Administration Simvastatin 20 mg 06/22/25 21:00 07/01/25 20:18 Simvastatin 20 Mg Tablet PO 20 mg HS YUDELKA Administration Umeclidinium/Vilanterol 1 puff 06/28/25 10:55 07/01/25 12:06 Umeclidinium/Vilanterol 62.5-25 Mcg Ellipta INHALATION Not Given DAILYRT [facility] Vitamin D 50 mcg 06/23/25 09:00 07/02/25 08:24 Cholecalciferol (Vitamin D3) 25 Mcg (1,000 Units) Tablet PO 50 mcg DAILY YUDELKA Administration Radiology Results: ITS Impressions Head CT 06/23/25 12:29 IMPRESSION: 1. No acute intracranial findings. Chest CT 06/23/25 18:21 IMPRESSION: Severe bilateral bronchopneumonia. Follow-up recommended to assess resolution. Chest X-Ray 06/28/25 07:51 IMPRESSION: 1. Improved aeration of left lung base with decreased size of effusion. Layering effusion may be present along with persisting pulmonary edema/consolidation. Quality VTE Prophylaxis VTE prophylaxis: pharmacologic ordered
[2025-07-02 09:56] LABS: CRP 4.4 mg/dL (<1.0)
[2025-07-02 09:57] LABS: NT Pro B Type Natriuretic Pept 2580 pg/mL (19.9-100)
[2025-07-02] MEDS: UMECLIDINIUM/VILANTEROL 62.5-25 MCG ELLIPTA 1 PUFF INHALATION (10:02)
--- NOTE | 2025-07-02 11:29 | PM.PNPUL ---
Progress Note: A&P Assessment and Plan (1) Abnormal PFT: Code(s): R94.2 - Abnormal results of pulmonary function studies Status: Acute Assessment and Plan: PFTs on 12/12/2024 demonstrate Preserved Ratio Impaired Spirometry (PRISm) with a normal FVC. she has a 5 pack year tobacco history and is currently smoking [address] scan of the chest shows no significant bullous emphysema. She has no bronchodilator response. The plan in the Pulmonary Clinic was to give her therapeutic trial of bronchodilators to see if this gave her clinical benefit. PFT showed PRISm which indicates early airflow obstruction. People with PRISm may have increased respiratory symptoms despite not meeting formal criteria for COPD. This may progress to a restrictive or obstructive process and can be associated with increased cardiovascular and all cause mortality in some studies. 06/24/2025: Patient tells me she has improved. She has 50% back to her normal. Her cough is essentially resolved. She denies phlegm or hemoptysis. She has no wheezing. When I enter the room she was on Airvo 40 L, 66% FiO2 with saturations 96%. The placed her on 15 L nasal cannula and sequentially decreased her to 10 L nasal cannula saturations 93%. Clinically she had no change when I switched her to nasal cannula oxygen. White blood cell count 18.1, creatinine 1.01. Procalcitonin unchanged from 0.1 on 06/23/2025 20.1 today. CRP today 13.0. BNP has improved from 3630 on 06/22/2025 to 2770 today. she has been diuresed with Lasix 40 IV b.i.d.. Yesterday she was positive 379 mL. Cumulative she is positive 2.7 L since admission. Her heart rate was AFib 130-140 and I have discontinue levalbuterol. ABG on 10 L nasal cannula 7.37/45/54. There is no evidence of hypercarbic respiratory failure. Plan: Patient currently has no wheezing and given her uncontrolled atrial fibrillation with RVR, I will discontinue levalbuterol. I will initiate ipratropium nebulizers q.4 hours and increase budesonide nebulizer 0.5 mg b.i.d. In case she has reactive airways disease. Given major concern is for bronchopneumonia I will discontinue prednisone today. She has received 3 days of systemic steroids. 06/25/2025: Patient said she did well yesterday and slept well through the night. This morning she had gotten up to the chair and her heart rate increased to 170 and she had worsening shortness of breath. She denies any current cough, phlegm or hemoptysis. Currently she is on 10 L nasal cannula with saturation 96%. Her heart rate is 150-175 irregularly irregular. White blood cell count 16.2, creatinine 1.03 yesterday she was -500 mL. Cumulative she is positive 2.0 L since admission. Her weight today is 90.2. Vessel Operator has been notified regarding her AFib with RVR. Plan: Overall patient thought her breathing was doing better yesterday. Continue treatment for pneumonia, AFib RVR with fluid overload. Today her AFib with RVR is uncontrolled. She remains on 10 L with saturations 96%. I will not try to decrease the oxygen as she is having shortness of breath with her AFib RVR. Continue treatment for pneumonia, AFib RVR with fluid overload. 06/26/25: Patient was agitated and had pain through the night and is receive narcotics, BuSpar, on gabapentin, risperidone as well. The pulse morning says she is breathing worse, worse cough with no phlegm and no hemoptysis. She is lethargic and I ordered a stat ABG on 7 L nasal cannula shows 7.42/50/74. Her heart rate was 120 and she is scheduled to receive her diltiazem and metoprolol. I called the nurse back in an hour and her heart rate now is 70-80, her respiratory status has improved and she is on 4 L nasal cannula saturations 93-95%. She is afebrile. White blood cell count 11.1, creatinine 0.84. Yesterday she was -640 mL. Cumulative she is positive 1.6 L since admission. her weight today is 84.3 kg. Her BNP is worse from 2770 on 06/24/2025 to 5330. Her CRP is increased from 13 on 06/24/2025 to 18.2 today. Her chest x-ray today shows continued infiltrates and congestion with no significant change from 06/23/2025. Plan: Patient continues with anxiety and pain which complicate her cardiac and respiratory issues. When she is calm and relaxed her heart rate is 70-80 and her nasal cannula oxygen can be decreased. Currently she is relaxed with AFib 70-80 and she has decreased to 4 L nasal cannula. Continue treatment for pneumonia, AFib with RVR and fluid overload. She is given 40 of Lasix today. Goal saturation 90-94%. Wean as tolerated. 06/27/25: The patient tells me she feels better today. Overall she says her breathing is 50% back to her normal. She has no cough, phlegm, hemoptysis. She did not feel any fever. When I enter the room she was on 5 L nasal cannula saturations 95%. I decreased her to 3 L nasal cannula her saturations were 89%. I placed her back on 4 L nasal cannula saturations 92%. Patient had a fever last night at 8:00 p.m. a 37.9. White blood cell count 10.7, creatinine 0.87. Plan: patient's breathing has improved. Requiring 4 L oxygen. continue ipratropium q.4 hours and budesonide q.12 hours. Continue guaifenesin 1200 p.o. b.i.d.. continue treatment for pneumonia, AFib with RVR and fluid overload. anxiety and agitation improved with psychiatry recommendations of: duloxetine 60 mg daily instead of b.i.d., risperidone 1 mg b.i.d. not t.i.d., reduce gabapentin from 800 mg q.i.d. to 300-400 mg t.i.d., discontinue hydroxyzine, continue lorazepam 0.5 mg p.o./SL q.6-8hrs, and discontinue buspirone. 06/28/25: Patient tells me she continues to improve. She is more awake and alert and communicative today. Overall she says her breathing is at her normal. She denies shortness of breath at rest. She has not been out of bed yet. She has no dyspnea on exertion with physical therapy doing exercises in the bed. Her cough is 90% back to her normal with no phlegm and no hemoptysis. Patient is on 3 L nasal cannula saturation 94%. She is afebrile for 30 hours. White blood cell count 10.9, creatinine 0.97. BNP has improved from 3450 on 06/27/2025 to 1970 today. Chest x-ray shows improved aeration left base with diffuse interstitial alveolar infiltrate on the left. Weight is 82.2. In's and out's are not recorded. Plan: Breathing has improved. Requiring 3 L oxygen. No wheezing today. Will discontinue ipratropium nebulizers. AFib is better controlled and will place the patient on Anoro Ellipta for therapeutic trial. Continue guaifenesin 1200 p.o. b.i.d.. Continue treatment for pneumonia, AFib in fluid overload. More awake and alert today. duloxetine 60 mg daily instead of b.i.d., risperidone 0.5 q.day and 1 mg p.o. HS., reduce gabapentin from 400 mg q.8 hours. 06/29/25: Patient tells me she continues to improve. Overall she says her breathing is at her normal. She denies shortness of breath at rest. Yesterday with PT she walked for 20 ft on 3 L nasal cannula with minimal assistance said she had no shortness of breath and her saturations were 88-94. Her cough is improving with no phlegm and no hemoptysis. Patient is on 2 L nasal cannula saturation 97. I decreased her to room air and after 4 minutes her saturations were 89% and I placed her on 1 L nasal cannula her saturations were 93%. She is afebrile for 53 hours. White blood cell count 12.6, creatinine 0.92. Weight is 80.7. In's and out's are not recorded. Plan: Breathing has improved. Requiring 1 L oxygen. No wheezing today. Stable on Anoro Ellipta, guaifenesin 1200 p.o. b.i.d.. Continue treatment for pneumonia, AFib in fluid overload. On duloxetine 60 mg daily instead of b.i.d., risperidone 0.5 q.day and 1 mg p.o. HS., and gabapentin from 400 mg q.8 hours. Goal saturation 90-94%. Adjust oxygen accordingly. Inpatient pulmonary consult services will resume on 07/02/2025, call with questions 07/02/2025: Patient tells me she is breathing good. She has no shortness of breath at rest and no dyspnea on exertion walking to the bathroom. She denies cough, phlegm or hemoptysis. She is afebrile. When I enter the room she is on 1 L nasal cannula saturation 99%. I decreased her to room air and her saturations were 96%. White blood cell count 10.4, creatinine 1.05. CRP has decreased from 27.5 on 06/27/2025 to 4.4 today. BNP has increased from 1690 on 06/29/2025 to 2580 today. In's and out's are not recorded. Her her weight on 07/01/2025 was 82.1 kg. Patient tells me she is feeling well enough to go home From a pulmonary perspective patient is ready to be discharged on these pulmonary medications: Anoro Ellipta 62.5-25 at 1 puff q.day Rescue albuterol 2 puffs q.4 hours p.r.n. shortness of breath or wheezing. Oxygen at rest and with activity per formal home O2 assessment. Guaifenesin 1200 mg p.o. b.i.d. p.r.n. congestion. Diuretics per Cardiology and hospitalist teams. Follow-up in the Pulmonary Clinic in 3-4 weeks. I gave her business card and informed our business relationship manager. Discussed with Dr. Gorman, will sign off, call with questions. follow with you. (2) Pneumonia: Qualifiers: Laterality: bilateral Lung location: unspecified part of lung Pneumonia type: due to unspecified organism Qualified Code(s): J18.9 - Pneumonia, unspecified organism Code(s): J18.9 - Pneumonia, unspecified organism Status: Acute Assessment and Plan: Patient presents with worsening respiratory symptoms, no leukocytosis, afebrile, COVID influenza RSV RT PCR assay negative, MRSA swab negative, chest x-ray with small effusions and congestion and a CT scan with bilateral infiltrates. CT scan of the chest 06/23/2025 compared to 05/06/2025 shows new bilateral upper lobe infiltrates right greater than left small medial segment of the right middle lobe infiltrate lingular infiltrates with very small left pleural effusion. These ground-glass infiltrates are new since 05/06/2025 there is no evidence of chronic interstitial lung disease, bullous emphysema, nodules or masses. ceftriaxone x1 dose 06/22 Plan: I will discontinue vancomycin. I am no evidence for anaerobic lung infection will discontinue metronidazole. Will continue levofloxacin 750 mg Q 48 hours and doxycycline 100 q.12. I will send a repeat COVID influenza RSV RT PCR assay. I will send respiratory pathogen panel, urine for Legionella antigen, urine for pneumococcal antigen and serum for mycoplasma IgM. COVID, influenza, RSV RT PCR assay negative 06/22 and 06/24. Respiratory pathogen panel, urine for Legionella antigen, urine for pneumococcal antigen and serum mycoplasma IgM pending 06/25/2025: Patient was improving 3 yesterday. Afebrile, White blood cell count 16.2, she has no cough, phlegm or hemoptysis. Plan: Continue treatment for pneumonia with doxycycline started 06/22/2025, day 4 and l levofloxacin started 06/23/2025. Status post ceftriaxone x1 dose on 06/22/2025. Status post vancomycin 1 dose on 06/23/2025. Status post Flagyl 06/23 through 06/25 AFib RVR with fluid overload, 06/26/25: No progression of her chest x-ray, leukocytosis is improving, afebrile, oxygenation is improving. Plan: Continue doxycycline, day 5 and levofloxacin day 3. 06/27/25: Patient had a fever last night with improvement in her respiratory symptoms. Improvement in her leukocytosis, stable oxygenation. She denies worsening phlegm or shortness of breath. CRP increased from 18.2 on 06/26/2025 to 27.5. Plan: Patient has completed 5 days of doxycycline. Currently on day 4 of Levaquin. Will follow patient's fever curve. At this time do not feel the fevers are related to a pulmonary infectio. 06/28/25: patient has been afebrile for 30 hours. White blood cell count 10.9, respiratory status is improving. Oxygenation is improving now on 3 L. Chest x-ray shows improved aeration left base with diffuse interstitial alveolar infiltrate on the left. Respiratory pathogen panel negative, serum mycoplasma IgM negative. Urine for Legionella and urine for pneumococcal pending. plan: Patient is on day 6 of levofloxacin 750 mg IV q.day. Chest x-ray better aerated at the left base. She may have a layering pleural effusion. Will continue levofloxacin. 06/29/25: She is afebrile for 53 hours. White blood cell count 12.6, respiratory status continues to improve. Oxygenation continues to improve. Respiratory pathogen panel negative, serum mycoplasma IgM, Urine for Legionella and urine for pneumococcal all negative. Plan: Patient is on day 7 of levofloxacin 750 IV q.day and will continue for a total of 10 days. 07/02/2025: Patient remains afebrile. White blood cell count 10.4. Continues to improve. Not tolerating room air. Plan: Today is day 10 of levofloxacin and she does not need to be discharged on antibiotics. (3) Acute exacerbation of CHF (congestive heart failure): Qualifiers: Heart failure type: diastolic Qualified Code(s): I50.33 - Acute on chronic diastolic (congestive) heart failure Code(s): I50.9 - Heart failure, unspecified Status: Acute Assessment and Plan: Patient with fluid overload and AFib with RVR. 06/24/25: BNP has improved from 3630 on 06/22/2025 to 2770 today. she has been diuresed with Lasix 40 IV b.i.d.. Yesterday she was positive 379 mL. Cumulative she is positive 2.7 L since admission. Her heart rate was AFib 130-14o Plan: Management per electronic data interchange specialist and hospitalist teams. Recommended as aggressive diuresis as tolerated by patient's cardiac and renal systems. I have discontinue levalbuterol. Patient has been switched to 40 mg p.o. q.day start time 5:00 p.m.. 06/25/25: This morning she had gotten up to the chair and her heart rate increased to 170 and she had worsening shortness of breath. creatinine 1.03 yesterday she was -500 mL. Cumulative she is positive 2.0 L since admission. Her weight today is 90.2. Vessel Operator has been notified regarding her AFib with RVR. Plan: Management per electronic data interchange specialist and hospitalist team. Currently on Lasix 40 q.day. 06/26/25: yesterday she was -640 mL. Cumulative she is positive 1.6 L since admission. her weight today is 84.3 kg. Her BNP is worse from 2770 on 06/24/2025 to 5330. Plan: Management per electronic data interchange specialist and hospitalist teams. Consider higher doses of Lasix. 06/27/25: BNP has improved from 5330 on 06/26/2025 to 3450 today. Yesterday she was positive 260 mL, . Cumulative she is positive 1.9 L since admission. Her weight today is 84.3 kg. heart rate is better controlled today with a flutter at 100-110. Plan: Management per electronic data interchange specialist and hospitalist team. Currently on Lasix 40 p.o. b.i.d.. 06/28/25: BNP has improved from 3450 on 06/27/2025 to 1970 today. Chest x-ray shows improved aeration left base with diffuse interstitial alveolar infiltrate on the left. Weight is 82.2. In's and out's are not recorded. Plan: AFib better controlled. Continue Lasix 40 p.o. b.i.d. Management per Cardiology and hospitalist teams. 06/29/25: Weight is 80.7. In's and out's are not recorded. Plan: Continue Lasix 40 p.o. b.i.d.. Follow BNP. Management AFib and CHF per Cardiology and hospitalist teams. 07/02/2025: Weight yesterday 82.1 kg. Her BNP has increased. Her Lasix has been on hold for low blood pressure. Plan: Management of AFib and fluid overload per Cardiology and hosp Subjective Date/time seen: 07/02/25 11:29 Interval history: 06/24/2025: This is a new pulmonary consult for respiratory failure. 74-year-old with a history of CHF, DM, HTN, GERD, HLD, COPD patient is followed in the Pulmonary Clinic in last seen on 04/02/2025: This is note and plan. 3 month follow-up regarding coughing. Hx: CHF, DM, HTN, GERD, HLD, COPD. Sees [facility] cardiology. She was hospitalized last month 02/22/25 from 02/25 regarding afib RVR, NAT, CHF, and pneumonia. CXR showed confluent opacity in the lower 3rd of the left hemithorax which is a slightly increased in size, small patchy opacities in the right lower lung. CTA of the chest showed a few small ground-glass and patchy opacities in both lungs more prominent in the lower lungs, small left pleural effusion, tiny right pleural effusion, several low-density indeterminate lesions scattered throughout the liver, indeterminate 2.3 cm left adrenal nodule. She was tx with abx for PNA, Cardizem gtt for afib, fluid bolus for NAT, and Lasix for CHF. She went to the ER 3 days after discharge as the metoprolol dose was increased prior and she was having lightheadedness, heart racing, and low BP. Chest x-ray showing likely a small pleural effusion on the left. Recommended follow-up with cardiology. Prior to her hospitalization, she called our office c/o dyspnea, dry coughing, and wheezing. CXR showed Bibasilar infiltrates may represent atelectasis or pneumonia. No significant change. Small pleural effusions. She was tx with doxycycline on 02/12. Today she reports improvement in symptoms since discharge. HAMMER is better and she is not coughing as much as she previously did. Tessalon Perles seem to help. She was to be setup on nebulizer with Marlo last visit. However she reports she never got it. She has been using her rescue inhaler 2x/day which she feels helps. She reports unchanged symptoms of wheezing at times. Otherwise denies chest pains/tightness, fever, hemoptysis, or nighttime breathing issues. Current smoker 6 cigs/day. Smoker for 10 year 0.5ppd. Denies family hx of lung disease. Weight 175 lb room air saturations 95% plan: PFTs with PRISm. Astepro did not help her coughing. Resend an order for nebulizer with [facility] p.r.n.. Pleural effusions: CT scan of the chest. 05/06/2025: CT scan of the chest with a very small left pleural effusion, discoid atelectasis anterior left lower lobe and minimal right dependent atelectasis in the right lower lobe. No emphysematous changes. No nodules or masses. 06/17/2025: Patient presented to the emergency room with dyspnea on exertion for 2-3 days, wheezing, room air saturations 95%. Chest x-ray with no acute abnormalities. Patient was diagnosed with bronchitis and treated with prednisone x5 days. Patient took this prednisone as prescribed but 1 day after finishing the prednisone she had worsening shortness of breath. 06/22/2025 patient presented to the emergency department with worsening shortness of breath, cough, wheezes the felt like worsening COPD exacerbation. Blood pressure 110/58, heart rate 81, respirations 22, room air saturations 86%. Patient was placed on 3 L nasal cannula saturations were 98%. She had diffuse wheezes. White blood cell count was 10.9, eosinophils 0.6%. BNP 3630. Creatinine 1.09. COVID influenza RSV RT PCR assay negative. Chest x-ray showed small effusions with congestion. She was given 2 L IV fluid, Solu-Medrol, Lasix 20 IV, ceftriaxone and doxycycline. MRSA swab was negative. 06/23/2025: Patient developed AFib RVR requiring IV metoprolol and IV diltiazem. She had worsening oxygenation requiring Airvo at 8:00 p.m. 45 L, 80% FiO2 with saturations 92%. Antibiotics were changed to vancomycin and Levaquin. Her MRSA swab was negative and vancomycin was discontinued. 06/24/2025: Patient tells me she has improved. She has 50% back to her normal. Her cough is essentially resolved. She denies phlegm or hemoptysis. She has no wheezing. When I enter the room she was on Airvo 40 L, 66% FiO2 with saturations 96%. The placed her on 15 L nasal cannula and sequentially decreased her to 10 L nasal cannula saturations 93%. Clinically she had no change when I switched her to nasal cannula oxygen. White blood cell count 18.1, creatinine 1.01. Procalcitonin unchanged from 0.1 on 06/23/2025 20.1 today. CRP today 13.0. BNP has improved from 3630 on 06/22/2025 to 2770 today. she has been diuresed with Lasix 40 IV b.i.d.. Yesterday she was positive 379 mL. Cumulative she is positive 2.7 L since admission. Her heart rate was AFib 130-140 and I have discontinue levalbuterol. 06/25/2025: Patient said she did well yesterday and slept well through the night. This morning she had gotten up to the chair and her heart rate increased to 170 and she had worsening shortness of breath. She denies any current cough, phlegm or hemoptysis. Currently she is on 10 L nasal cannula with saturation 96%. Her heart rate is 150-175 irregularly irregular. White blood cell count 16.2, creatinine 1.03 yesterday she was -500 mL. Cumulative she is positive 2.0 L since admission. Her weight today is 90.2. Vessel Operator has been notified regarding her AFib with RVR. 06/26/25: Patient was agitated and had pain through the night and is receive narcotics, BuSpar, on gabapentin, risperidone as well. The pulse morning says she is breathing worse, worse cough with no phlegm and no hemoptysis. She is lethargic and I ordered a stat ABG on 7 L nasal cannula shows 7.42/50/74. Her heart rate was 120 and she is scheduled to receive her diltiazem and metoprolol. I called the nurse back in an hour and her heart rate now is 70-80, her respiratory status has improved and she is on 4 L nasal cannula saturations 93-95%. She is afebrile. White blood cell count 11.1, creatinine 0.84. Yesterday she was -640 mL. Cumulative she is positive 1.6 L since admission. her weight today is 84.3 kg. Her BNP is worse from 2770 on 06/24/2025 to 5330. Her CRP is increased from 13 on 06/24/2025 to 18.2 today. Her chest x-ray today shows continued infiltrates and congestion with no significant change from 06/23/2025. 06/27/25: The patient tells me she feels better today. Overall she says her breathing is 50% back to her normal. She has no cough, phlegm, hemoptysis. She did not feel any fever. When I enter the room she was on 5 L nasal cannula saturations 95%. I decreased her to 3 L nasal cannula her saturations were 89%. I placed her back on 4 L nasal cannula saturations 92%. Patient had a fever last night at 8:00 p.m. a 37.9. White blood cell count 10.7, creatinine 0.87. BNP has improved from 5330 on 06/26/2025 to 3450 today. Yesterday she was positive 260 mL, . Cumulative she is positive 1.9 L since admission. Her weight today is 84.3 kg. 06/28/25: Patient tells me she continues to improve. She is more awake and alert and communicative today. Overall she says her breathing is at her normal. She denies shortness of breath at rest. She has not been out of bed yet. She has no dyspnea on exertion with physical therapy doing exercises in the bed. Her cough is 90% back to her normal with no phlegm and no hemoptysis. Patient is on 3 L nasal cannula saturation 94%. She is afebrile for 30 hours. White blood cell count 10.9, creatinine 0.97. BNP has improved from 3450 on 06/27/2025 to 1970 today. Chest x-ray shows improved aeration left base with diffuse interstitial alveolar infiltrate on the left. Weight is 82.2. In's and out's are not recorded. 06/29/25: Patient tells me she continues to improve. Overall she says her breathing is at her normal. She denies shortness of breath at rest. Yesterday with PT she walked for 20 ft on 3 L nasal cannula with minimal assistance said she had no shortness of breath and her saturations were 88-94. Her cough is improving with no phlegm and no hemoptysis. Patient is on 2 L nasal cannula saturation 97. I decreased her to room air and after 4 minutes her saturations were 89% and I placed her on 1 L nasal cannula her saturations were 93%. She is afebrile for 53 hours. White blood cell count 12.6, creatinine 0.92. Weight is 80.7. In's and out's are not recorded. 07/02/2025: Patient tells me she is breathing good. She has no shortness of breath at rest and no dyspnea on exertion walking to the bathroom. She denies cough, phlegm or hemoptysis. She is afebrile. When I enter the room she is on 1 L nasal cannula saturation 99%. I decreased her to room air and her saturations were 96%. White blood cell count 10.4, creatinine 1.05. CRP has decreased from 27.5 on 06/27/2025 to 4.4 today. BNP has increased from 1690 on 06/29/2025 to 2580 today. In's and out's are not recorded. Her her weight on 07/01/2025 was 82.1 kg. Patient tells me she is feeling well enough to go home DATA: 06/23/25: EXAMINATION: CT diagnostic chest wo con, 06/23/2025 18:00 ACTIVATED SLUDGE OPERATOR HISTORY: Pulm edema vs pneumnia COMPARISON: No comparisons available. FINDINGS: No significant coronary calcification is present ([id number]) LUNGS: Trace left pleural effusion. Trace right pleural effusion. No tracheomalacia. No bronchiectasis. Minimal emphysematous changes. Mild pulmonary fibrotic changes. There are bilateral areas of groundglass attenuation with infiltrates in the upper lobes bilaterally, the left lower lobe and the right lower lobe as well as the right middle lobe. Scattered micronodules are noted which are probably infectious. HEART AND PERICARDIUM: Mild cardiomegaly. Trace pericardial effusion. AORTA: Normal caliber aorta. ADENOPATHY/MEDIASTINUM: None. LIMITED VIEWS OF THE ABDOMEN: Complex appearing liver cysts the largest right lobe liver 1 x 1 cm. Right kidney renal calculi noted the largest mid pole 3 mm with partially imaged probable renal cyst 2 x 2 cm. Left kidney renal calculi the largest mid pole 2 mm. There is thickening of the adrenal glands bilaterally with left adrenal nodule 1 x 1 cm probable benign adrenal adenoma. Small hiatal hernia noted. OSSEOUS STRUCTURES: No acute osseous abnormality.No suspicious lesions. OVERLYING SOFT TISSUES: Unremarkable. THYROID: The thyroid is unremarkable. IMPRESSION: Severe bilateral bronchopneumonia. Follow-up recommended to assess resolution. 06/22/25: Echo Summary 1. Left ventricular systolic function is hyperdynamic, estimated at >70. 2. There is mildly increased left ventricular wall thickness. 3. The left ventricular diastolic function is abnormal. 4. Left atrial chamber dimension is mildly enlarged. 5. There is small pericardial effusion. 6. atrial fibrillation with RVR. Right Ventricle Right ventricular chamber dimension is normal. Right ventricular systolic function is normal. Left Atria Left atrial chamber dimension is mildly enlarged. Right Atria Right atrial chamber dimension is normal. No tricuspid regurg and no PASP calculated 05/06/25: EXAMINATION: CT diagnostic chest wo con INDICATION: J90 - Pleural effusion, not elsewhere classified COMPARISON: CT dated 02/22/2025 FINDINGS: Tiny left pleural effusion. Discoid atelectasis in the left upper lobe and lingula along the major fissure. Compressive atelectasis in the anterior basilar left lower lobe along side the enlarged heart discoid and basilar atelectasis in the right lower lobe and atelectasis at the posterior medial aspect of the right middle lobe. No pulmonary edema, pneumonia or right-sided pleural effusion. Atherosclerotic coronary artery calcification is. No pericardial effusion. Thoracic aorta is normal in caliber. No pathologically enlarged thoracic lymphadenopathy. Multiple scattered small bilateral nonobstructing renal stones the largest in the right kidney measuring 4-5 mm. 3.3 cm right renal cyst. There are also several smaller cysts in the liver measuring up to 1.4 cm. 1.5 cm low-attenuation left adrenal adenoma. Mild thoracic dextroscoliosis with moderate to severe spondylosis. T10 hemangioma. C5-C7 anterior spinal fusion with anterior plate and screw fixation.. IMPRESSION: 1. Very small left pleural effusion and scattered atelectasis in the left mid and bilateral lower lung zones. 2. Cardiomegaly. 3. Bilateral nonobstructing nephrolithiasis. 03/30/25: EXAMINATION: MR abdomen wo/w con INDICATION: Liver disease, unspecified. TECHNIQUE: Magnetic resonance imaging (MRI) of the abdomen was performed without and with 15 mL MultiHance intravenous contrast. COMPARISON: Abdomen MRI 01/18/2020 FINDINGS: Cardiomegaly is noted. No pericardial effusion. There is trace pleural effusions. There is diffuse hepatic steatosis. There are cysts in the liver measuring up to 11 mm. The gallbladder is absent. The common duct measures 12 mm in diameter, likely not clinically significant given the normal liver function tests on 03/27/2025. The spleen, pancreas, and right adrenal gland are normal. There is chronic thickening of left adrenal gland, likely benign. There are cysts in the kidneys measuring up to 3.8 cm on the right. There are no dilated loops of bowel. There are no pathologically enlarged lymph nodes. There is no free intraperitoneal fluid. IMPRESSION: 1. Diffuse hepatic steatosis. 02/22/2025: EXAMINATION: CTA chest PE protocol INDICATION: Palpitations. Atrial fibrillation. COMPARISON: 09/02/2017 FINDINGS: Cervical hardware. There is a mildly enlarged 1.4 cm subcarinal lymph node similar to the study from 09/02/2017. There are a few additional nonenlarged mediastinal and hilar lymph nodes. Several new low-density lesions scattered throughout the liver, the largest measures 1.5 cm in the right lobe of the liver. A Liver mass MRI is recommended. There is a too small to characterize low-attenuation lesion in the right kidney. Indeterminate 2.3 cm left adrenal nodule. An adrenal mass MRI is recommended. Heart is moderately enlarged. There are coronary artery calcifications. Thoracic aorta is not aneurysmal. Mild to moderate discredit disease in the thoracic aorta. Small left-sided pleural effusion. Bones appear osteopenic. Multilevel degenerative change in the visualized spine. Visualized tracheobronchial tree is patent. Tiny right-sided pleural effusion. Mild biapical scarring. There are a few small groundglass and patchy opacities in both lungs most prominent in the lower lobes. IMPRESSION: 1. There are a few small groundglass and patchy opacities in both lungs most prominent in the lower lobes. Differential includes but is not limited to atelectasis/scarring or infiltrates. 2. Small left-sided pleural effusion. Tiny right-sided pleural effusion. 3. Several new low-density indeterminate lesions scattered throughout the liver, the largest measures 1.5 cm in the right lobe of the liver. A Liver mass MRI is recommended. 4. Indeterminate 2.3 cm left adrenal nodule. An adrenal mass MRI is recommended. CXR 02/28/25 - Confluent opacity in the lower third of the left hemithorax. Differential includes a combination of pleural fluid with adjacent atelectasis and/or consolidation. An underlying mass is possible. Recommend follow-up to resolution. Consider a chest CT. Small patchy opacities in the right mid and lower lung. Differential includes metastasis/scarring or infiltrates. 12/12/2024: This is a pulmonary function test with pre and post-bronchodilator spirometry, plethysmography and diffusing capacity. The test was performed and results interpreted in accordance with the 2019 and 2005 ATS/ERS Task Force guidelines respectively using the Global Lung Function Initiative-2012 reference equations. Patient demonstrated good effort and cooperation. Reproducibility criteria were met. The quality of the pre bronchodilator spirometry maneuver was Grade A and post bronchodilator spirometry maneuver was Grade A. Findings: Spirometry: The contour the inspiratory and expiratory flow tracing are normal. The pre bronchodilator FVC is 1.90 L, 76% predicted. The pre bronchodilator FEV1 is 1.34 L, 69% predicted. The pre bronchodilator FEV1: FVC ratio 70%. The post bronchodilator FVC is 1.89 L, representing a 1% decrease. The post bronchodilator FEV1 is 1.37 L, representing a 3% increase. The post bronchodilator FEV1: FVC ratio is 73%. Plethysmography: The total lung capacity is 4.01 L, 87% predicted. The functional residual capacity is 2.42 L, 92% predicted. The residual volume is 2.12 L, 102% predicted. Diffusing capacity: The diffusing capacity unadjusted for hemoglobin and carboxyhemoglobin is 10.0, 53% predicted. The diffusing capacity adjusted for alveolar volume is 3.03, 69% predicted. Impression: The FEV1 is less than 80% predicted and the FEV1: FVC ratio is greater than the lower limit of normal consistent with Preserved Ratio Impaired Spirometry (PRISm) with a normal FVC. The spirometry is normal without evidence of an obstructive abnormality. There is no significant improvement after inhaling a single dose of albuterol. The lung volumes are normal. The diffusing capacity unadjusted for hemoglobin and carboxyhemoglobin is moderately decreased and remains mildly decreased when adjusted for alveolar volume. There are no prior studies for comparison 12/12/2024: This is a 6 minute walk test. The test was performed and interpreted in accordance with the 2014 ERS/ATS task force guidelines. Of note, the last 2 minutes the patient used to wheeled walker due to back pain. Findings: The patient's resting room air oxygen saturation measured by pulse oximetry was 95%, the heart rate was 90 bpm, and the modified Thanh dyspnea score was 0. Patient ambulated for 213 meters and oxygen saturation remained 91 to 94%. At the end of the study the heart rate was 112 bpm and the modified Thanh dyspnea score was 0. The patient did not qualify for supplemental oxygen at rest or with ambulation. CXR 09/29/24 - Small left pleural effusion is present. Possible minimal right pleural effusion. Echo 10/23/22 - EF 55-60%, left ventricular diastolic function is abnormal, mild pulmHTN RVSP 46mmHg. 10/22/2022: EXAMINATION: CTA chest PE protocol INDICATION: Chest pain, shortness of breath and elevated d-dimer. COMPARISON: CT dated 09/02/2017 and chest x-ray dated 11/08/2022. FINDINGS: Study is technically limited for evaluation of right upper lobe pulmonary arteries due to motion and contrast bolus timing. No large central pulmonary embolism. Cardiomegaly. Small pleural effusions. There is mediastinal lymphadenopathy, likely reactive. Patchy groundglass opacities involving the upper lobes and right lower lobe. There is dependent atelectasis. No endobronchial lesions. No pneumothorax. No evidence for aortic aneurysm or dissection. There are multiple low-density lesions in the liver, largest in the right hepatic lobe showing 1.5 cm, compatible with a cyst. There is nodular thickening of the adrenal glands, likely secondary to benign adenomas. Moderate thoracic spondylosis. Surgical fusion changes present in the lower cervical spine. 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 IMPRESSION: 1. Patchy groundglass opacities, most confluent in the right upper lobe, consistent with pneumonia. 2: No large central pulmonary embolism. 3: Mediastinal lymphadenopathy, likely reactive. 4: Small pleural effusions. Review of Systems Constitutional: Constitutional: Reports no additional constitutional complaints Eyes: Eyes: Reports no additional eye complaints ENT: Reports system reviewed and no additional complaints, except as documented Cardiovascular: Cardiovascular: Reports no additional cardiovascular complaints Respiratory: Respiratory: Reports no additional respiratory complaints Gastrointestinal: Gastrointestinal: Reports no additional gastrointestinal complaints Musculoskeletal: Musculoskeletal: Reports no additional musculoskeletal complaints Neurologic: Reports system reviewed and no additional complaints, except as documented Psychiatric: Psychiatric: Reports no additional psychiatric complaints Endocrine: Endocrine: Reports no additional endocrine complaints Hematologic/Lymphatic: Hematologic/Lymphatic: Reports no additional hematologic/lymphatic complaints Allergic/Immunologic: Allergic/Immunologic: Reports no additional allergic/immunologic complaints Exam Const: General: cooperative, healthy appearing and comfortable Orientation/consciousness: oriented to person, oriented to place and oriented to time HENMT: Head: normal to inspection Ears: hearing grossly normal bilaterally Eyes: General: appearance normal, both eyes and all related structures Neck: Neck: normal visual inspection Chest: Chest palpation & inspection: normal inspection of the chest Resp: Effort & Inspection: normal respiratory effort and able to speak in complete sentences Auscultation: no crackles, no rales, no rhonchi, no wheezes and lung sounds not diminished Other: Cardio: Jugular venous distension: no JVD GI: Inspection: normal to inspection Skin: General skin exam: normal color Neuro: General: oriented to person, oriented to place and oriented to time Extrem: General: normal to inspection Psych: Appearance: grossly normal Objective Data Vital Signs Vital Signs: Vital Signs - 24 hr 07/01/25 12:00 07/01/25 14:00 07/01/25 16:00 Temperature 36.4 C Pulse Rate 97 82 108 H Respiratory Rate 16 Blood Pressure 97/77 L Pulse Oximetry 96 Oxygen Delivery Oxygen Flow Rate 07/01/25 17:28 07/01/25 18:35 07/01/25 20:00 Temperature Pulse Rate 114 H Respiratory Rate Blood Pressure 86/58 L 93/49 L Pulse Oximetry 98 Oxygen Delivery Nasal Cannula Oxygen Flow Rate 1 07/01/25 20:00 07/01/25 21:28 07/02/25 00:00 Temperature 36.5 C Pulse Rate 114 H 61 110 H Respiratory Rate 16 Blood Pressure 120/70 Pulse Oximetry 98 Oxygen Delivery Oxygen Flow Rate 07/02/25 04:00 07/02/25 06:00 07/02/25 06:45 Temperature 36.4 C L Pulse Rate 116 H 93 83 Respiratory Rate 17 14 Blood Pressure 125/70 Pulse Oximetry 99 100 Oxygen Delivery High Flow Nasal Cannula Oxygen Flow Rate 1 07/02/25 06:45 07/02/25 08:00 07/02/25 08:10 Temperature Pulse Rate 83 134 H Respiratory Rate 14 Blood Pressure 99/51 L Pulse Oximetry Oxygen Delivery Oxygen Flow Rate 07/02/25 08:10 07/02/25 08:23 07/02/25 10:07 Temperature Pulse Rate 123 H 88 Respiratory Rate 18 Blood Pressure Pulse Oximetry 100 92 Oxygen Delivery Nasal Cannula Nasal Cannula Oxygen Flow Rate 1 1 07/02/25 10:07 07/02/25 10:19 Temperature Pulse Rate 88 Respiratory Rate 18 Blood Pressure 105/61 Pulse Oximetry Oxygen Delivery Oxygen Flow Rate Intake/Output Intake/Output: Intake & Output 06/29/25 06/30/25 07/01/25 07/02/25 23:59 23:59 23:59 23:59 Intake Total 960 1330 1460 740 Balance 960 1330 1460 740 Meds/Results Medications: Active Medications Generic Name Dose Route Start Last Admin Trade Name Freq PRN Reason Stop Dose Admin Acetaminophen 650 mg 06/22/25 14:49 06/30/25 08:31 Acetaminophen 325 Mg Tablet PO 650 mg Q4H PRN Administration Mild Pain (1-3) or Fever Hydrocodone Bitart/Acetaminophen 1 tab 06/23/25 08:08 07/02/25 04:16 Hydrocodone/Acetaminophen (*Crx) 5-325 Mg Tablet PO 1 tab Q8H PRN Administration Pain Albuterol 2 puff 07/01/25 20:55 07/02/25 06:41 Albuterol Sulfate (*Sp) Aerosol 1 Puff INHALATION 2 puff Q6HRT PRN Administration Shortness Of Breath Benzonatate 100 mg 06/22/25 16:14 06/28/25 23:55 Benzonatate 100 Mg Capsule PO 100 mg TID PRN Administration Cough Dextrose 12.5 gm 06/22/25 15:39 Dextrose 50% 25 Gm/50 Ml Syringe IV PUSH PRN PRN Hypoglycemia Protocol Diltiazem HCl 60 mg 07/02/25 03:20 07/02/25 03:34 Diltiazem Hcl 60 Mg Tablet PO 60 mg Q6HR ROSE MARY Administration Duloxetine HCl 60 mg 06/28/25 09:00 07/02/25 08:24 Duloxetine Hcl 60 Mg Capsule.Dr PO 60 mg DAILY ROSE MARY Administration Furosemide 40 mg 06/26/25 17:00 07/02/25 09:00 Furosemide 40 Mg Tablet PO Not Given BIDWM ROSE MARY Gabapentin 400 mg 06/27/25 06:00 07/02/25 04:59 Gabapentin 400 Mg Capsule PO 400 mg Q8HR ROSE MARY Administration Glucagon 1 mg 06/22/25 15:39 Glucagon For Inj 1 Mg Vial IM PRN PRN Hypoglycemia Protocol Glucose 15 gm 06/22/25 15:39 Glucose Oral Gel 15 Gm Of Glucse In 37.5 Gm Tube PO PRN PRN Hypoglycemia Protocol Guaifenesin 1,200 mg 06/24/25 21:00 07/02/25 08:24 Guaifenesin 12 Hr 600 Mg Tabcr PO 1,200 mg Q12HR ROSE MARY Administration Dextrose 1,000 mls @ 100 mls/hr 06/22/25 15:39 Dextrose 5% 1,000 Ml IVPB PRN PRN Hypoglycemia Protocol Levofloxacin/Dextrose 750 mg in 150 mls @ 100 mls/hr 06/26/25 15:00 07/01/25 16:40 Levaquin 750 Mg/D5w 150 Ml IVPB 07/02/25 16:29 Infused DAILY@1500 ROSE MARY Infusion Lorazepam 0.5 mg 06/27/25 11:35 07/01/25 20:18 Lorazepam (*Crx) 0.5 Mg Tablet PO 0.5 mg Q6H PRN Administration Anxiety Losartan Potassium 25 mg 06/22/25 17:00 07/02/25 09:00 Losartan Potassium 25 Mg Tablet PO Not Given BID ROSE MARY Metoprolol Tartrate 50 mg 06/25/25 09:00 07/02/25 08:23 Metoprolol Tartrate 50 Mg Tab PO 50 mg Q12HR ROSE MARY Administration Nitroglycerin 0.4 mg 06/22/25 15:39 Nitroglycerin Sl 0.4 Mg Tablet SUBLINGUAL Q5MIN PRN Chest Pain Risperidone 1 mg 06/27/25 21:00 07/01/25 20:18 Risperidone 1 Mg Tablet PO 1 mg HS ROSE MARY Administration Risperidone 0.5 mg 06/28/25 09:00 07/02/25 08:24 Risperidone 0.25 Mg Tablet PO 0.5 mg DAILY ROSE MARY Administration Rivaroxaban 20 mg 06/22/25 17:00 07/01/25 17:17 Rivaroxaban 20 Mg Tablet PO 20 mg DAILY@1700 ROSE MARY Administration Simvastatin 20 mg 06/22/25 21:00 07/01/25 20:18 Simvastatin 20 Mg Tablet PO 20 mg HS ROSE MARY Administration Umeclidinium/Vilanterol 1 puff 06/28/25 10:55 07/02/25 10:02 Umeclidinium/Vilanterol 62.5-25 Mcg Ellipta INHALATION 1 puff DAILYRT ROSE MARY Administration Vitamin D 50 mcg 06/23/25 09:00 07/02/25 08:24 Cholecalciferol (Vitamin D3) 25 Mcg (1,000 Units) Tablet PO 50 mcg DAILY ROSE MARY Administration Radiology Results: ITS Impressions Head CT 06/23/25 12:29 IMPRESSION: 1. No acute intracranial findings. Chest CT 06/23/25 18:21 IMPRESSION: Severe bilateral bronchopneumonia. Follow-up recommended to assess resolution. Chest X-Ray 06/28/25 07:51 IMPRESSION: 1. Improved aeration of left lung base with decreased size of effusion. Layering effusion may be present along with persisting pulmonary edema/consolidation. Labs Labs: Laboratory Results - last 24 hr 07/02/25 09:14 C-Reactive Protein 4.4 H NT-Pro-B Natriuret Pep 2580 H
--- NOTE | 2025-07-02 13:52 | BUHOMEO2 ---
Evaluation was performed at [facility] Home Oxygen Evaluation RC: Home Oxygen (O2) Evaluation Start: 07/01/25 10:20 Freq: ONCE Status: Active Protocol: RPE Activity Type Activity Date Activity User E-sign Co-sign Detail Recorded Client Recorded Date Recorded By Document 07/02/25 13:20 [email or web address] [id number] 07/02/25 13:51 LIZ Document 07/02/25 13:40 LIZ [id number] 07/02/25 13:51 LIZ 07/02/25 07/02/25 13:20 13:40 Home O2 Evaluation [Oxygen] -Test Phase Resting Exercise -Oxygen Delivery Room Air Room Air [Pulse Oximetry] -Pulse Oximetry (90-100 %) 94 93 [Pulse Rate] -Pulse Rate (60-100 beats/min) 98 98 [Exercise] -Ambulation Distance (feet) 150 -Ambulation Distance (meters) 45.71 [Comments] -Home Oxygen Evaluation Comments no home O2 needed at this time. [Charges] -Evaluation Charges O2 Evaluation by Pulmonary
--- NOTE | 2025-07-02 14:19 | PC.NURSE ---
RN took telemetry off as patient as a discharge order in.
== END 2025-07-02 18:10 | disposition home or self-care (01) | DRG 193 ==
LOC: ANHED 13:22 → ANHIMU 16:11 → ANH3MEDSUR 06-29 13:19
PROVIDERS: General Practice; Internal Medicine; Internal Medicine Pulmonary Disease; Student in an Organized Health Care Education/Training Program; Admitting Provider Internal Medicine; Emergency Provider Emergency Medicine; PCP Emergency Medicine; Visit Provider Internal Medicine
DX: J18.0 Bronchopneumonia, unspecified organism (principal); I50.33 Acute on chronic diastolic (congestive) heart failure; J96.01 Acute respiratory failure with hypoxia; J44.0 Chronic obstructive pulmonary disease with (acute) lower respiratory infection; J44.1 Chronic obstructive pulmonary disease with (acute) exacerbation; I24.89 Other forms of acute ischemic heart disease; D64.9 Anemia, unspecified; E11.9 Type 2 diabetes mellitus without complications; E78.5 Hyperlipidemia, unspecified; F43.0 Acute stress reaction; F41.8 Other specified anxiety disorders; G89.4 Chronic pain syndrome; I27.20 Pulmonary hypertension, unspecified; I11.0 Hypertensive heart disease with heart failure; I48.0 Paroxysmal atrial fibrillation; J43.9 Emphysema, unspecified; Z98.1 Arthrodesis status; Z90.49 Acquired absence of other specified parts of digestive tract; Z87.891 Personal history of nicotine dependence; Z20.822 Contact with and (suspected) exposure to COVID-19; Z79.01 Long term (current) use of anticoagulants
CPT/HCPCS: 0202U; 36415; 36600; 70450; 71045; 71046; 71250; 80048; 80053; 82103; 82104; 82805; 83735; 83880; 84145; 84484; 85018; 85025; 85027; 86140; 86738; 87040; 87449; 87637; 87641; 87899; 93005; 94618; 94640; 94667; 96361; 96365; 96366; 96367; 96368; 96375; 96376; 97110; 97116; 97162; 97166; 97530; 97535; 99285; A9270; C8929; G0378; J0616; J0696; J1163; J1836; J1938; J1956; J2919; J3373; J3475; J3480; J7030; J7512; Q9957

== ENCOUNTER 2025-07-08 07:17 | Emergency (ER) | payer MEDICARE, SELFPAY ==
--- NOTE | ~2025-07-08 | XR_ITS ---
Examination: XR shoulder RT min 2V, XR elbow RT min 3V Clinical History: trauma Comparison: None Technique: 4 views right shoulder, 4 views right elbow Findings/impression: Right shoulder: 1. No fracture or dislocation. 2. Mild glenohumeral joint degenerative changes. Right elbow: 1. No fracture or dislocation. Reviewed, dictated and finalized at location R. RA MECHANIC
--- NOTE | ~2025-07-08 | XR_ITS ---
Examination: XR chest 2V Clinical History: sob Comparison: 06/28/2025 Technique: PA and Lateral Findings: Cardiomegaly. Moderate left and trace right pleural effusions. Bibasilar airspace opacities, left side worse. No acute bony abnormality. IMPRESSION: 1. Bibasilar atelectasis and airspace disease, left lung worse. 2. Moderate left pleural effusion. Reviewed, dictated and finalized at location R. ED SEAM OPERATOR
--- NOTE | ~2025-07-08 | CT_ITS ---
CT HEAD NON-CONTRAST Clinical History: trauma Comparison: 06/23/2025 Technique: Unenhanced axial images skull base to vertex Coronal, sagittal reformats CT images acquired with automatic exposure control for dose reduction DLP: 681 mGy-cm Findings: Age-related atrophy. White matter changes, typically chronic microvascular ischemic disease. Sulci, ventricles: Unremarkable. No intracerebral hemorrhage. No evidence acute territorial infarct. No mass effect, midline shift. Bony calvarium intact. Visualized paranasal sinuses: Clear. Mastoid air cells: Clear. IMPRESSION: 1. No acute intracranial findings. Reviewed, dictated and finalized at location R. TURNER
--- OUTSIDE RECORDS SUMMARY | 2025-07-08 07:20 | XMS_ITS | Encounter Summary ---
Author Organization [facility] Health Address [address] [place] [address] Care Team Providers Care Change Management Name Role Phone Unavailable Primary Care Provider Unavailabl e Prior Encounters Date Type Department Care Team Description 07/31/2019 Converted CPS Chart Documents [facility] [phone] [place] [address] <No scans attached> 07/31/2019 Converted 13x Documents [facility] [phone] [place] [address] <No scans attached> Plan of [...] 2 ENDODONTIC THERAPY, MOLAR TOOTH (EXCLUDING FINAL LUTHERAN) Routine 07/25/2012 12:00 AM PST 30 PONTIC [...] 3 ENDODONTIC THERAPY, MOLAR TOOTH (EXCLUDING FINAL LUTHERAN) Routine 07/25/2012 12:00 AM PST 31 ENDODONTIC THERAPY, MOLAR TOOTH (EXCLUDING FINAL LUTHERAN) Routine 07/25/2012 12:00 AM PST 4 CROWN [...]
--- OUTSIDE RECORDS SUMMARY | 2025-07-08 07:20 | XMS_ITS | Clinical Summary ---
Author Organization [facility] Health Address [address] [place] [address] Care Team Providers Care Office Technology Instructor Name Role Phone Unavailable Primary Care Provider [...]
--- NOTE | 2025-07-08 07:27 | ECG_ITS ---
Test Date: 2025-07-08 07:36:38 Measurements Intervals [place] Rate: 75 P: 84 ME: 171 QRS: -15 QRSD: 72 T: 12 QT: 394 QTc: 440 Interpretive Statements SINUS RHYTHM WITH ATRIAL AND VENTRICULAR PREMATURE COMPLEXES CHANGES TO ATRIAL TACHYCARDIA LOW QRS VOLTAGE IN PRECORDIAL LEADS DELAYED PRECORDIAL R/S TRANSITION BORDERLINE T WAVE ABNORMALITY- ANTERIOR LEADS ABNORMAL ECG Compared to ECG 06/23/2025 06:13:46 ATRIAL TACHYCARDIA NOW PRESENT Electronically Signed On 07-08-2025 08:17:47 ANGLE SHEAR OPERATOR by Fransico Ortega D.O.
[2025-07-08 07:29] VITALS: BP 140/82; PULSE 67; RESP 21; TEMP 36.8; O2SAT 96
[2025-07-08 07:42] VITALS: PULSE 62; O2SAT 94
[2025-07-08 07:48] VITALS: BP 132/71; PULSE 63; RESP 20; O2SAT 94
[2025-07-08 08:03] LABS: Hematocrit 32.0 % (37.0-47.0); Hemoglobin 10.1 g/dL (12.0-15.0); Mean Corpuscular HGB Conc 31.6 g/dl (32-36); Mean Corpuscular Hemoglobin 28.9 pg (26-34); Mean Corpuscular Volume 91.7 fl (80-100); Platelet Count Result 343 k/mm3 (150-375); Red Blood Count 3.49 M/mm3 (4.2-5.4); White Blood Count 9.1 K/mm3 (4.5-10.0)
[2025-07-08 08:18] LABS: Alanine Aminotransferase 23 U/L (6-35); Albumin Level 3.4 g/dL (3.5-5.1); Alkaline Phosphatase 58 U/L (38-126); Anion Gap 2 mmol/L (4-12); Aspartate Amino Transferase 35 U/L (14-36); Bilirubin,Total 0.3 mg/dL (0.2-1.3); Blood Urea Nitrogen 22 mg/dL (7-17); Calcium 9.8 mg/dL (8.4-10.2); Carbon Dioxide 33 mmol/L (22-30); Chloride 106 mmol/L (98-107); Estimated CRCL calculation 32 ml/min; Estimated Glomerular Filt Rate 36; Glucose 102 mg/dL (65-110); Potassium 3.8 mmol/L (3.4-5.0); Sodium 141 mmol/L (137-145); Total Protein 6.1 g/dL (6.3-8.2)
--- NOTE | 2025-07-08 08:37 | ED_ITS ---
HPI - General Adult General Chief complaint: Shortness of Breath/Dyspnea Stated complaint: SOB, fall last night R arm pain Time Seen by Provider: 07/08/25 07:37 History of Present Illness HPI narrative: 74-year-old female presented to the emergency department for evaluation after having a ground level fall last night. Patient was just recently discharged from the hospital for CHF and pneumonia. Patient did complete all of her antibiotics. Patient reports she had a mechanical fall last night she did strike her head but had no loss of conscious. Patient's primary complaint is some right shoulder and arm pain. Patient denies any other pain or injury. Patient is well-appearing at time of evaluation. Related Data Home Medications ?Medication ?Instructions ?Recorded ?Confirmed ?Last Taken ?Type risperidone 1 mg tablet 1 mg PO TID 10/22/22 5 06/22/25 History rivaroxaban 20 mg PO DAILY 02/22/2506/1106/22/25 History losartan 25 mg tablet 25 mg PO BID 06/22/2506/22/25 History hydrocodone 5 mg-acetaminophen 325 1 tablet PO Q8H PRN pain 06/23/25 06/23/25 Unknown History mg tablet albuterol sulfate 90 mcg/actuation 1 puff inhalation Q 4-6H PRN 07/01/25 07/01/25 Unknown History aerosol inhaler shortness of breath or wheez ing Allergies Allergy/AdvReac Type Severity Reaction Status Date / Time erythromycin base Allergy Hives Verified 07/08/25 07:20 Penicillins Allergy Hives Verified 07/08/25 07:20 Review of Systems 2 Review of Systems: All systems reviewed & are unremarkable except as noted in HPI and below [facility] Past Medical History Medical History (Updated 07/08/25 @ 10:20 by Ottoniel Murdock MD) Anxiety Mild pulmonary hypertension Estimated PASP of 46 mmHg on echo in 10/2022. Diastolic dysfunction Echocardiogram on 10/23/2022: normal LV size and function, estimated EF of 55 to 60%, diastolic dysfunction, moderate left atrial enlargement, and mild pulmonary hypertension. Hyperlipidemia Type 2 diabetes mellitus Diet-controlled, recent A1c was 5.9% 03/2025. Atrial fibrillation Frequent urinary tract infections Chronic pain syndrome Vitamin D deficiency Normocytic anemia Nicotine use Depression with anxiety Kidney stones Shingles Arthritis Gastroesophageal reflux disease Hypertension Sinus congestion Surgical History Surgical History History of fusion of cervical spine C4 through C6. History of lithotripsy History of hernia repair History of appendectomy Family History Family History Sibling Family history of blood dyscrasia Family history of malignant neoplasm Family history of seizure disorder Mother Family history of malignant neoplasm, Onset Age: 85 Family history of lymphoma, Onset Age: 85 Family history of atrial fibrillation, Onset Age: 85 Social History Social History Social History: Surrogate medical decision maker: Usha Ashley, granddaughter. Code status: Full code. Years smoked: 7 Smoking status: Former smoker Tobacco type: cigarettes Second hand tobacco smoke exposure: Yes Alcohol intake: never Substance use: current Substance use type: painkillers Other substance usage details: for chronic pain Lack of Transportation: No Lack of Food: Never True Current Housing: I Have Housing Concerned About Future Housing: No Difficulty Paying Gas/Electric Bills: No Difficulty Paying for Meds: No Currently Unemployed: No Education: High School Diploma/GED Difficulty w/ Childcare or Family Care: No Living arrangements: alone Spiritual care concerns: No Agree to blood products: Yes Exam 2 Narrative: APPEARANCE: Well appearing, no pain, no distress, well-nourished. HEAD: normocephalic, atraumatic. EYES: PERRLA/EOMI, conjunctivae clear. NOSE: Normal no drainage EARS:TMS clear with good light reflex. THROAT: Pharynx clear, no exudate. NECK: Supple. No adenopathy, no masses. RESPIRATORY: Airway patent, respirations nonlabored. Clear to auscultation bilaterally, no rales, rhonchi, wheezing. CARDIOVASCULAR: Regular rate and rhythm without murmurs rubs or gallops. ABDOMINAL: Soft, nontender, nondistended, normal bowel sounds MUSCULOSKELETAL: Tenderness to right shoulder with normal range of motion NEURO: Alert. Cranial nerves II through XII intact. Good gait. Good coordination SKIN: Warm, dry. Normal Color Course Vital Signs Vital signs: Vital Signs Temperature 98.2 F 07/08/25 07:29 Pulse Rate 67 07/08/25 07:29 Respiratory Rate 21 H 07/08/25 07:29 Blood Pressure 140/82 07/08/25 07:29 Pulse Oximetry 96 07/08/25 07:29 Oxygen Delivery Room Air 07/08/25 07:29 Temperature 97.9 F 07/08/25 11:02 Pulse Rate 68 07/08/25 11:02 Respiratory Rate 18 07/08/25 11:02 Blood Pressure 128/86 07/08/25 11:02 Pulse Oximetry 95 07/08/25 11:02 Oxygen Delivery Room Air 07/08/25 07:42 [facility] Narrative Medical decision making narrative: 74-year-old female presents emergency department for evaluation for a rash on her groin, right shoulder pain and a head injury. Patient's head CT was negative for acute intracranial abnormality. Patient's elbow and shoulder x-ray were negative. Patient is currently afebrile with no leukocytosis and hemoglobin of 10.1 which is similar to her baseline. No acute abnormalities on her CMP patient was negative for influenza RSV and for COVID. Chest x-ray does show pleural effusion but no concern for worsening acute pneumonia. Patient denies any worsening shortness of breath. Differential Diagnosis Differential Diagnosis: Shoulder fracture, shoulder contusion, elbow fracture, subdural hematoma, subarachnoid hemorrhage Lab Data [facility] Lab Attestation statement: I personally reviewed the patient's lab results. 07/08/25 07:51 07/08/25 07:51 Labs: Lab Results 07/08/25 07/08/25 Range/Units 07:51 08:01 WBC 9.1 (4.5-10.0) K/mm3 RBC 3.49 L (4.2-5.4) M/mm3 Hgb 10.1 L (12.0-15.0) g/dL Hct 32.0 L (37.0-47.0) % MCV 91.7 (80-100) fl MCH 28.9 (26-34) pg MCHC 31.6 L (32-36) g/dl RDW 16.1 H (11.5-14.5) % Plt Count 343 (150-375) k/mm3 MPV 10.6 H (7.4-10.4) fl Immature Gran % (Auto) Not Reportable Neut % (Auto) Not Reportable Lymph % (Auto) Not Reportable Dyer % (Auto) Not Reportable Eos % (Auto) Not Reportable Baso % (Auto) Not Reportable Lymph # (Auto) Not Reportable Dyer # (Auto) Not Reportable Eos # (Auto) Not Reportable Baso # (Auto) Not Reportable Abs Immat Gran (auto) Not Reportable Absolute Neuts (auto) Not Reportable Absolute Nucleated RBC Not Reportable Total Counted 100 Neutrophils % (Manual) 72 (46-73) % Band Neutrophils % 0 (0-6) % Lymphocytes % (Manual) 21 (18-44) % Monocytes % (Manual) 5 (3-9) % Eosinophils % (Manual) 1 (0-4) % Basophils % (Manual) 1 (0-1) % Nucleated RBC % Not Reportable Abs Neuts (Manual) 6.55 (1.3-6.7) K/mm3 Abs Lymphs (Manual) 1.91 (1.1-4.5) K/mm3 Abs Monocytes (Manual) 0.45 (0.1-0.90) K/mm3 Absolute Eos (Manual) 0.09 (0.02-0.50) K/mm3 Abs Basophils (Manual) 0.09 (0.0-0.1) K/mm3 Atypical Lymphocytes Present Platelet Estimate Adequate (Adequate) Anisocytosis 1+ Schistocytes None seen Sodium 141 (137-145) mmol/L Potassium 3.8 (3.4-5.0) mmol/L Chloride 106 (98-107) mmol/L Carbon Dioxide 33 H (22-30) mmol/L Anion Gap 2 L (4-12) mmol/L BUN 22 H (7-17) mg/dL Creatinine 1.44 H (0.7-1.0) mg/dL Estim Creat Clear Calc 32 ml/min Estimated GFR 36 L (59 - ) Glucose 102 (65-110) mg/dL Calcium 9.8 (8.4-10.2) mg/dL Total Bilirubin 0.3 (0.2-1.3) mg/dL AST 35 (14-36) U/L ALT 23 (6-35) U/L Alkaline Phosphatase 58 (38-126) U/L Total Protein 6.1 L (6.3-8.2) g/dL Albumin 3.4 L (3.5-5.1) g/dL Influenza A (RT-PCR) Negative (Negative) Influenza B (RT-PCR) Negative (Negative) RSV (RT-PCR) Negative (Negative) SARS-CoV-2 RNA (RT-PCR) Negative (Negative) Imaging Data Radiologist's impression: ITS Impressions Chest X-Ray 07/08/25 09:00 IMPRESSION: 1. Bibasilar atelectasis and airspace disease, left lung worse. 2. Moderate left pleural effusion. Head CT 07/08/25 09:12 IMPRESSION: 1. No acute intracranial findings. Discharge Plan Discharge Clinical Impression: Head injury, Right shoulder pain, Candidiasis of genitalia Patient Disposition: Home Condition: Stable Instructions: Antibiotic Form Additional Instructions: Have close follow-up with your primary care physician. Nystatin cream as directed. If you have any worsening symptoms then please call or return to the emergency department. Patient Language: Citizen Of [place] Prescriptions: New nystatin 100,000 unit/gram cream 1 applic topical BID Qty: 30 0RF No Action cholecalciferol (vitamin D3) 50 mcg (2,000 unit) capsule See Rx Instructions .ROUTE .COMPLEX Qty: 90 3RF Dose Instruction: TAKE 1 CAPSULE BY MOUTH DAILY Rx Instructions: TAKE 1 CAPSULE BY MOUTH DAILY gabapentin 800 mg tablet See Rx Instructions .ROUTE .COMPLEX Qty: 360 2RF Dose Instruction: TAKE 1 TABLET BY MOUTH FOUR TIMES DAILY Rx Instructions: TAKE 1 TABLET BY MOUTH FOUR TIMES DAILY risperidone 1 mg tablet 1 mg PO TID prednisone 20 mg tablet 40 mg PO DAILY 4 Days Qty: 8 0RF losartan 25 mg tablet 25 mg PO BID hydrocodone-acetaminophen 5-325 mg tablet 1 tablet PO Q8H PRN (Reason: pain) furosemide 40 mg Tablet 40 mg PO BIDWM Qty: 60 0RF metoprolol tartrate 50 mg Tablet 50 mg PO Q12HR Qty: 60 0RF diltiazem HCl 30 mg Tablet 90 mg PO Q6HR Qty: 120 0RF umeclidinium-vilanterol [Anoro Ellipta] 62.5-25 mcg/actuation Blister With Device 1 inh inhalation DAILYRT Qty: 1 0RF duloxetine 60 mg Capsule,Delayed Release(Dr/Ec) 60 mg PO BID Qty: 30 0RF levofloxacin 250 mg tablet 250 mg PO DAILY Qty: 7 0RF albuterol sulfate 90 mcg/actuation HFA aerosol inhaler 1 puff INHALATION Q4-6H PRN (Reason: shortness of breath or wheezing) rivaroxaban [Xarelto] 20 mg PO DAILY ipratropium-albuterol 0.5 mg-3 mg(2.5 mg base)/3 mL solution for nebulization 3 ml inhalation Q6H PRN (Reason: shortness of breath or wheezing) Qty: 360 1RF benzonatate 100 mg capsule 100 mg PO TID PRN (Reason: Cough) Qty: 90 1RF budesonide 0.5 mg/2 mL suspension for nebulization 0.5 mg inhalation DAILY Qty: 60 5RF Rx Instructions: rinse and spit simvastatin 20 mg tablet See Rx Instructions .ROUTE .COMPLEX Qty: 90 2RF Dose Instruction: TAKE 1 TABLET BY MOUTH DAILY Rx Instructions: TAKE 1 TABLET BY MOUTH DAILY Follow-up/Referrals: Diego Mina MD [Primary Care Provider, Internal Medicine]
[2025-07-08 08:38] LABS: Band Neutrophils Percent 0 % (0-6); Basophils Absolute Manual 0.09 K/mm3 (0.0-0.1); Basophils Percent Manual 1 % (0-1); Eosinophils Absolute Manual 0.09 K/mm3 (0.02-0.50); Eosinophils Percent Manual 1 % (0-4); Lymphocytes Absolute Manual 1.91 K/mm3 (1.1-4.5); Lymphocytes Percent Manual 21 % (18-44); Monocytes Absolute Manual 0.45 K/mm3 (0.1-0.90); Monocytes Percent Manual 5 % (3-9); Neutrophils Absolute Manual 6.55 K/mm3 (1.3-6.7); Neutrophils Percent Manual 72 % (46-73); Schistocytes None Seen; Total Cells Counted 100
[2025-07-08 08:39] LABS: Anisocytosis 1+
[2025-07-08 08:41] LABS: Influenza A QL RT-PCR Negative (Negative); Influenza B QL RT-PCR Negative (Negative); RSV RNA, RT-PCR Negative (Negative); SARS-CoV-2 RNA PCR Negative (Negative)
[2025-07-08 09:17] VITALS: BP 110/77; PULSE 62; RESP 18; O2SAT 95
[2025-07-08 11:02] VITALS: BP 128/86; PULSE 68; RESP 18; TEMP 36.6; O2SAT 95
== END 2025-07-08 11:04 | disposition home or self-care (01) ==
PROVIDERS: Emergency Provider Emergency Medicine; PCP Emergency Medicine
DX: S09.90XA Unspecified injury of head, initial encounter (principal); M25.511 Pain in right shoulder; B37.49 Other urogenital candidiasis; I50.9 Heart failure, unspecified; W19.XXXA Unspecified fall, initial encounter; Z87.891 Personal history of nicotine dependence; Z20.822 Contact with and (suspected) exposure to COVID-19
CPT/HCPCS: 36415; 70450; 71046; 73030; 73080; 80053; 85025; 87637; 93005; 99284